=== PATIENT | female | born 1960 | race Caucasian/White ===

== ENCOUNTER 2017-01-10 20:37 | Emergency (ER) | payer MEDICAID ==
[2017-01-10 20:51] VITALS: BP 151/88
[2017-01-10] MEDS ORDERED: HYDROmorphone 1 MG/ML Syringe IVPUSH ONE ×2 (21:06→21:54)
[2017-01-10] MEDS ORDERED: Sodium Chloride 0.9% 10 ML Syringe FLUSH PRN ×2 (21:06→22:04)
[2017-01-10] MEDS ORDERED: Ondansetron 4 MG/2 ML SDV IVPUSH ONE (21:06)
[2017-01-10] MEDS ORDERED: Sodium Chloride 0.9% 1,000 ML IV ONE ×2 (21:06→23:33)
--- NOTE | 2017-01-10 21:28 | EDM.PDOC ---
ED HPI GI/ABDOMINAL - General Chief Complaint: Abdominal Pain Stated Complaint: AB PAIN Time Seen by Provider: 01/10/17 21:03 Source of Information: Reports: Patient History Limitations: Reports: No limitations - History of Present Illness INITIAL COMMENTS - FREE TEXT/NARRATIVE: Patient presents for evaluation treatment of abdominal pain, nausea and vomiting. Patient reports that the pain began an hour and half prior to arrival in the ER. She reports it is a severe pain located throughout her abdomen but is worse in the left upper quadrant. She reports that she vomited prior to arrival in the ER. She reports that she's had a bowel obstruction twice in the past. Both of these times have required surgical revision. She reports additional abdominal surgeries of her [place], cholecystectomy and ventral hernia repair. She states that she has mesh in her abdomen from the ventral hernia repair. She states that she has not been passing much gas today. Her last bowel movement was today. Denies any urinary symptoms, fevers or chills. Location: generalized Quality: Reports: stabbing - Related Data Allergies/ADRs: Allergies Allergy/AdvReac Type Severity Reaction Status Date / Time cephalexin Allergy Hives Verified 01/10/17 20:51 lisinopril Allergy Muscle Verified 01/10/17 20:51 Aches morphine Allergy Itching Verified 01/10/17 20:51 venlafaxine [From Effexor] Allergy Cannot Verified 01/10/17 20:51 Remember Home Meds: Home Meds Citalopram Hydrobromide [Celexa] 40 mg PO BEDTIME 12/16/15 [History] Hydrochlorothiazide 12.5 mg PO DAILY 12/16/15 [History] Losartan [Cozaar] 25 mg PO DAILY 12/16/15 [History] Ferrous Sulfate [Iron] 325 mg PO DAILY 06/23/16 [History] Gabapentin [Neurontin] 300 mg PO DAILY 06/23/16 [History] Potassium Chloride [Klor-Con M20] 2 tab PO DAILY 06/23/16 [History] Loratadine [Claritin] 10 mg PO DAILY PRN 07/15/16 [History] Pantoprazole [Protonix] 40 mg PO DAILY 07/15/16 [History] SUMAtriptan [Imitrex] 25 mg PO ASDIRECTED PRN 07/15/16 [History] oxyCODONE HCl [Oxycodone HCl] 5 mg PO Q6HR PRN 07/15/16 [History] Past Medical History HEENT History: Reports: Allergic rhinitis, Impaired vision, Other (see below) Other HEENT History: wears glasses, dentures Cardiovascular History: Reports: High cholesterol, Hypertension, SOB on exertion Respiratory History: Reports: PE, Sleep apnea Gastrointestinal History: Reports: Bowel obstruction, GERD, Other (see below) Other Gastrointestinal History: Perotinitis, gastric ulcer Genitourinary History: Reports: None Musculoskeletal History: Reports: Arthritis, Back pain, chronic, Neck pain, chronic, Osteoarthritis Neurological History: Reports: Migraines Psychiatric History: Reports: Anxiety, Depression Endocrine/Metabolic History: Reports: Diabetes, type II, Obesity/BMI 30+ Hematologic History: Reports: Anemia, Iron deficiency, Other (see below) Other Hematologic History: blood clotting disorder - Past Surgical History GI Surgical History: Reports: Bariatric procedure, Hernia repair/other, Small bowel, Other (see below) Other GI Surgeries/Procedures: Gastric bypass Female Surgical History: Reports: Hysterectomy, Oophorectomy Musculoskeletal Surgical History: Reports: Shoulder surgery Social & Family History - Family History Family Medical History: Noncontributory - Tobacco Use Smoking Status *Q: Current Every Day Smoker Years of Tobacco use: 25 Packs/Tins Daily: 1 Second Hand Smoke Exposure: Yes - Recreational Drug Use Recreational Drug Use: No ED ROS GENERAL - Review of Systems Review Of Systems: See Below Constitutional: Denies: fever, chills GI/Abdominal: Reports: Abdominal pain, Nausea, Vomiting, Other (decreased flatus ; bloating) : Reports: no symptoms. Denies: dysuria, hematuria ED EXAM, GI/ABD - Physical Exam Exam: See Below Exam Limited By: No limitations General Appearance: alert, WD/WN, moderate distress Respiratory/Chest: no respiratory distress, lungs clear, normal breath sounds Cardiovascular: normal peripheral pulses, regular rate, rhythm, no murmur GI/Abdominal: absent bowel sounds, tenderness, distention, guarding Neurological: alert, oriented, normal cognition Psychiatric: normal affect, normal mood Skin Exam: Warm, Dry, Normal color Course - Vital Signs Last Recorded V/S: Last Vital Signs Temp 36.8 C 01/10/17 20:48 Pulse 81 01/10/17 20:48 Resp 18 01/10/17 20:48 BP 151/88 H 01/10/17 20:48 Pulse Ox 100 01/10/17 20:48 - Orders/Labs/Meds Orders: Active Orders 24 hr Category Date Time Status Peripheral IV Care [RC] . DIRECTED Care 01/10/17 21:06 Active Abdomen 2V AP Flat Upright [CR] Stat Exams 01/10/17 21:06 Taken Abdomen Pelvis w Cont [CT] Stat Exams 01/10/17 21:38 Taken Sodium Chloride 0.9% [Saline Flush] Med 01/10/17 21:06 Active 10 ml FLUSH ASDIRECTED PRN Sodium Chloride 0.9% [Saline Flush] Med 01/10/17 22:04 Active 10 ml FLUSH ONETIME PRN Nasogastric Orogastric Tube Insertion [OM.PC] Routine Oth 01/10/17 22:36 Ordered Peripheral IV Insertion Adult [OM.PC] Routine Oth 01/10/17 21:06 Ordered Medication Orders Sodium Chloride (Saline Flush) 10 ml FLUSH ASDIRECTED PRN PRN Reason: Keep Vein Open Last Admin: 01/10/17 21:20 Dose: 10 ml Sodium Chloride (Saline Flush) 10 ml FLUSH ONETIME PRN PRN Reason: IV FLUSH Last Admin: 01/10/17 22:15 Dose: 10 ml Labs: Laboratory Tests 01/10/17 01/10/17 01/10/17 Range/Units 21:00 21:00 21:58 WBC 5.91 (3.98-10.04) K/mm3 RBC 4.02 (3.98-5.22) M/mm3 Hgb 11.1 L (11.2-15.7) gm/L Hct 34.7 (34.1-44.9) % MCV 86.3 (79.4-94.8) fl MCH 27.6 (25.6-32.2) pg MCHC 32.0 L (32.2-35.5) g/dl RDW Std Deviation 53.9 H (36.4-46.3) fL Plt Count 206 (182-369) K/mm3 MPV 10.5 (9.4-12.3) fl Neutrophils % (Manual) 43 (40-60) % Band Neutrophils % 0 (0-10) % Lymphocytes % (Manual) 44 H (20-40) % Atypical Lymphs % 1 % Monocytes % (Manual) 7 (2-10) % Eosinophils % (Manual) 4 (0.7-5.8) % Basophils % (Manual) 1 (0.1-1.2) Platelet Estimate Adequate Plt Morphology Comment Normal Hypochromasia 1+ slight Poikilocytosis 2+ moderate Anisocytosis 2+ moderate Microcytosis 1+ slight Macrocytosis 1+ slight Tear Drop Cells 1+ slight Ovalocytes 1+ slight Reynolds Cells 1+ slight Schistocytes 1+ slight RBC Morph Comment Abnormal Sodium 140 (136-145) mEq/L Potassium 3.9 (3.5-5.1) mEq/L Chloride 104 (98-107) mEq/L Carbon Dioxide 24 (21-32) mEq/L Anion Gap 15.9 H (5-15) BUN 13 (7-18) mg/dL Creatinine 0.8 (0.55-1.02) mg/dL Est Cr Clr Drug Dosing TNP Estimated GFR (MDRD) > 60 (>60) mL/min BUN/Creatinine Ratio 16.3 (14-18) Glucose 107 H (74-106) mg/dL Calcium 9.1 (8.5-10.1) mg/dL Total Bilirubin 0.2 (0.2-1.0) mg/dL AST 30 (15-37) U/L ALT 25 (14-59) U/L Alkaline Phosphatase 49 (46-116) U/L C-Reactive Protein 0.3 (<1.0) mg/dL Total Protein 7.2 (6.4-8.2) g/dl Albumin 3.8 (3.4-5.0) g/dl Globulin 3.4 gm/dL Albumin/Globulin Ratio 1.1 (1-2) Urine Color Yellow (Yellow) Urine Appearance Clear (Clear) Urine pH 7.5 (5.0-8.0) Ur Specific [place] 1.025 (1.005-1.030) Urine Protein Negative (Negative) Urine Glucose (UA) Negative (Negative) Urine Ketones Negative (Negative) Urine Occult Blood Trace-intact H (Negative) Urine Nitrite Negative (Negative) Urine Bilirubin Negative (Negative) Urine Urobilinogen 1.0 (0.2-1.0) Ur Leukocyte Esterase Negative (Negative) Urine RBC 0-5 (0-5) /hpf Urine WBC 0-5 (0-5) /hpf Ur Squamous Epith Cells 0-5 (0-5) /hpf Amorphous Sediment Moderate H (NOT SEEN) /hpf Urine Bacteria Rare (FEW) /hpf Urine Mucus Not seen (FEW) /hpf Meds: Medications Generic Name Dose Route Start Last Admin Trade Name Nick PRN Reason Stop Dose Admin Sodium Chloride 10 ml 01/10/17 21:06 01/10/17 21:20 Saline Flush FLUSH 10 ml ASDIRECTED PRN Administration Keep Vein Open Sodium Chloride 10 ml 01/10/17 22:04 01/10/17 22:15 Saline Flush FLUSH 10 ml ONETIME PRN Administration IV FLUSH Discontinued Medications Generic Name Dose Route Start Last Admin Trade Name Freq PRN Reason Stop Dose Admin Hydromorphone HCl 1 mg 01/10/17 21:06 01/10/17 21:18 Dilaudid IVPUSH 01/10/17 21:07 1 mg ONETIME ONE Administration Hydromorphone HCl 1 mg 01/10/17 21:54 01/10/17 22:05 Dilaudid IVPUSH 01/10/17 21:55 1 mg ONETIME ONE Administration Sodium Chloride 1,000 mls @ 999 mls/hr 01/10/17 21:06 01/10/17 21:19 Normal Saline IV 01/10/17 22:06 999 mls/hr ONETIME ONE Administration Iopamidol 150 ml 01/10/17 22:04 01/10/17 22:15 Isovue-300 (61%) IVPUSH 01/10/17 22:05 100 ml ONETIME ONE Administration Ondansetron HCl 4 mg 01/10/17 21:06 01/10/17 21:18 Zofran IVPUSH 01/10/17 21:07 4 mg ONETIME ONE Administration - Radiology Interpretation Free Text/Narrative:: Flat and upper rate of the abdomen shows multiple air-fluid lines. CT of the abdomen and pelvis with IV contrast impression per Vrad shows a high grade small bowel obstruction. Cause could be adhesions or less likely stricture. - Re-Assessments/Exams Free Text/Narrative Re-Assessment/Exam: 01/10/17 23:42 Labs returned. WBC 5.91, hemoglobin 11.1 platelets are 206. CRP is 0.3. sodium is 140, potassium 3.9 chloride is 104. Anion gap is 15.1. UA has trace blood. Negative for nitrates, leukocytes, ketones and glucose. I discussed the case with our surgeon on-call, Dr. Amilcar Paul. He felt given, her complicated past surgical history, that she would be better served at a higher level of care. I discussed this with the patient. She asked to be transferred to [facility] as this is where she has had previous surgeries. I educated her that we need to send her to a higher level of care, which [facility] is not. She asked that I contact [facility]. I was able to contact [facility], no[facility] telles and spoke with Dr. Dale, surgeon field artillery fire control man. He states that the surgeon she saw no longer takes call and would Not be able to take care of her. He has never seen her. He also recommended transfer to a higher level of care. I spoke with Dr. Newton, hospitalist at [facility]. He agrees to accept the patient. Consultation with Dr. Madrid, surgeon field artillery fire control man. The plan is to medically manage the patient with an NG tube, which she currently has place, and he will see her in the morning. Will transfer by ground ambulance to [facility]. Departure - Departure Time of Disposition: 23:47 Disposition: DC/Tfer to Acute Hospital 02 Condition: serious Clinical Impression: Small bowel obstruction Forms: ED Department Discharge Additional Instructions: Patient will go by ground ambulance to [facility]. She is to be a direct admission to . - My Orders Last 24 Hours: My Active Orders 01/10/17 21:06 Peripheral IV Care [RC] . DIRECTED Abdomen 2V AP Flat Upright [CR] Stat Sodium Chloride 0.9% [Saline Flush] 10 ml FLUSH ASDIRECTED PRN Peripheral IV Insertion Adult [OM.PC] Routine 01/10/17 21:38 Abdomen Pelvis w Cont [CT] Stat 01/10/17 22:04 Sodium Chloride 0.9% [Saline Flush] 10 ml FLUSH ONETIME PRN 01/10/17 22:36 Nasogastric Orogastric Tube Insertion [OM.PC] Routine - Assessment/Plan Last 24 Hours: My Active Orders 01/10/17 21:06 Peripheral IV Care [RC] . DIRECTED Abdomen 2V AP Flat Upright [CR] Stat Sodium Chloride 0.9% [Saline Flush] 10 ml FLUSH ASDIRECTED PRN Peripheral IV Insertion Adult [OM.PC] Routine 01/10/17 21:38 Abdomen Pelvis w Cont [CT] Stat 01/10/17 22:04 Sodium Chloride 0.9% [Saline Flush] 10 ml FLUSH ONETIME PRN 01/10/17 22:36 Nasogastric Orogastric Tube Insertion [OM.PC] Routine
[2017-01-10] MEDS ORDERED: Iopamidol 612 MG/ML 150 ML Bottle IVPUSH ONE (22:04)
[2017-01-10] MEDS ORDERED: HYDROmorphone 0.5 MG/0.5 ML Syringe IVPUSH ONE (23:57)
--- NOTE | 2017-01-12 07:15 | CR ---
Abdomen: Supine and upright views of the abdomen were obtained. Comparison: No previous study. Dilated air-filled loops of small bowel are identified with air-fluid levels being seen on the upright view. No free air is seen. Scoliosis noted within the spine. Surgical clips seen from prior cholecystectomy. Surgical anastomotic sutures seen around the stomach. Impression: 1. Findings compatible with distal small bowel obstruction. Diagnostic code #3
--- NOTE | 2017-01-12 08:05 | CT ---
CT abdomen and pelvis Technique: Multiple axial sections were obtained from above the dome of the diaphragm inferiorly through the pubic symphysis. Oral contrast was not utilized. IV contrast has been given. Delayed images were also obtained through the bladder. Comparison: No previous CT exam, previous abdominal x-ray of the 07/15/16. Findings: Visualized lung bases show nothing acute. Slight scarring or atelectasis noted within the right lung base. Small hiatal hernia is seen. Previous gastric surgery is noted. Mild intrahepatic biliary duct dilatation is seen with evidence of previous cholecystectomy. Intrahepatic biliary duct dilatation may relate to previous cholecystectomy. Spleen appears within normal limits. Kidneys show symmetric contrast enhancement without hydronephrosis or mass. Adrenal glands show no nodule. Pancreas appears within normal limits. Aorta shows atherosclerotic calcification which continues into the iliac vessels. No aneurysm is seen. No retroperitoneal adenopathy is noted. Small amount of free fluid is seen within the pelvis. Diffuse dilated small bowel is seen containing air and fluid. Bowel is dilated down to the ileum. Etiology for the obstruction is not appreciated on this exam. Findings may relate to nonvisualized adhesion. Delayed images show contrast within the distal ureters and within the bladder. Bone window settings were reviewed which show scattered degenerative change within the spine with mild scoliosis. Impression: 1. Findings compatible with distal small bowel obstruction. Etiology not seen and findings may relate to adhesions. 2. Intrahepatic biliary duct dilatation most likely residual from prior cholecystectomy. 3. Other incidental findings as noted above. Diagnostic code #5 Agree with preliminary report issued by [employer] (preliminary report dictated on 01/10/17, 11:43 PM Central Time)
== END 2017-01-11 00:11 ==
LOC: JD.ED 20:37
DX: K56.60 Unspecified intestinal obstruction (principal); R11.2 Nausea with vomiting, unspecified; E78.00 Pure hypercholesterolemia, unspecified; I10 Essential (primary) hypertension; K21.9 Gastro-esophageal reflux disease without esophagitis; Z87.11 Personal history of peptic ulcer disease; F32.9 Major depressive disorder, single episode, unspecified; F41.9 Anxiety disorder, unspecified; M19.90 Unspecified osteoarthritis, unspecified site; E11.9 Type 2 diabetes mellitus without complications; E66.9 Obesity, unspecified; E61.1 Iron deficiency; D64.9 Anemia, unspecified; D68.9 Coagulation defect, unspecified; Z98.84 Bariatric surgery status; F17.210 Nicotine dependence, cigarettes, uncomplicated; Z79.899 Other long term (current) drug therapy
CPT/HCPCS: 36415; 74020; 74177; 80053; 81001; 85025; 86140; 96361; 96374; 96375; 99285; J1170; J2405; J7040; J7050; Q9967; 99284

== ENCOUNTER 2017-10-19 23:53 | Emergency (ER) | payer MEDICAID ==
[2017-10-20] MEDS ORDERED: Sodium Chloride 0.9% 10 ML Syringe FLUSH PRN (00:10)
[2017-10-20 00:14] VITALS: BP 183/101
--- NOTE | 2017-10-20 00:18 | EDM.PDOC ---
ED HPI GENERAL MEDICAL PROBLEM - General Chief Complaint: Behavioral/Psych Stated Complaint: [facility] Time Seen by Provider: 10/19/17 23:59 Source of Information: Reports: Patient History Limitations: Reports: Altered Mental Status - History of Present Illness INITIAL COMMENTS - FREE TEXT/NARRATIVE: 57 y/o F brought in by EMS s/p overdose. Time unknown. Patient's found her with altered mental status and suicide note and several empty pill bottles. Patient not able to state what she took. Empty bottles include: Buproprion XL, divalproex sodium, gabapenten, mirtazepine, losartan, potassium chloride, pantoprazole, ondansetron. She also reportedly may have taken a few tablets of her 's hydrocodone. EMS unsure of when she was last known well. Unable to obtain any hx from the patient at this time due to altered mental status. 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 - Related Data Allergies Allergy/AdvReac Type Severity Reaction Status Date / Time cephalexin Allergy Hives Verified 10/20/17 00:10 lisinopril Allergy Muscle Verified 10/20/17 00:10 Aches morphine Allergy Itching Verified 10/20/17 00:10 venlafaxine [From Effexor] Allergy Cannot Verified 10/20/17 00:10 Remember Home Meds: Home Meds Citalopram Hydrobromide [Celexa] 40 mg PO BEDTIME 12/16/15 [History] Hydrochlorothiazide 12.5 mg PO DAILY 12/16/15 [History] Losartan [Cozaar] 25 mg PO DAILY 12/16/15 [History] Ferrous Sulfate [Iron] 325 mg PO DAILY 06/23/16 [History] Gabapentin [Neurontin] 300 mg PO DAILY 06/23/16 [History] Potassium Chloride [Klor-Con M20] 2 tab PO DAILY 06/23/16 [History] Loratadine [Claritin] 10 mg PO DAILY PRN 07/15/16 [History] Pantoprazole [ProTONIX] 40 mg PO DAILY 07/15/16 [History] SUMAtriptan [Imitrex] 25 mg PO ASDIRECTED PRN 07/15/16 [History] oxyCODONE HCl [Oxycodone HCl] 5 mg PO Q6HR PRN 07/15/16 [History] Past Medical History HEENT History: Reports: Allergic Rhinitis, Impaired Vision, Other (See Below) Other HEENT History: wears glasses, dentures Cardiovascular History: Reports: High Cholesterol, Hypertension, SOB on Exertion Respiratory History: Reports: PE, Sleep Apnea Gastrointestinal History: Reports: Bowel Obstruction, GERD, Other (See Below) Other Gastrointestinal History: Perotinitis, gastric ulcer Genitourinary History: Reports: None Musculoskeletal History: Reports: Arthritis, Back Pain, Chronic, Neck Pain, Chronic, Osteoarthritis Neurological History: Reports: Migraines Psychiatric History: Reports: Anxiety, Depression Endocrine/Metabolic History: Reports: Diabetes, Type II, Obesity/BMI 30+ Hematologic History: Reports: Anemia, Iron Deficiency, Other (See Below) Other Hematologic History: blood clotting disorder - Past Surgical History GI Surgical History: Reports: Bariatric Procedure, Hernia Repair/Other, Small Bowel, Other (See Below) Musculoskeletal Surgical History: Reports: Shoulder Surgery Social & Family History - Family History Family Medical History: Noncontributory - Tobacco Use Smoking Status *Q: Current Every Day Smoker Years of Tobacco use: 25 Packs/Tins Daily: 1 Second Hand Smoke Exposure: Yes - Recreational Drug Use Recreational Drug Use: No ED ROS GENERAL - Review of Systems Review Of Systems: Unable To Obtain (altered mental status) - Physical Exam Exam: See Below Exam Limited By: No Limitations General Appearance: Alert, Other (confused, slurred speech, able to answer some but not all questions) Eye Exam: Bilateral Eye: EOMI, Normal Inspection, PERRL (2-3mm) Ears: Normal External Exam Nose: Normal Inspection Throat/Mouth: Other (dry mucous membranes) Head Exam: Atraumatic, Normocephalic Neck: Normal Inspection, Supple, Non-Tender, Full Range of Motion Respiratory/Chest: No Respiratory Distress, Lungs Clear, Normal Breath Sounds, Chest Non-Tender Cardiovascular: Normal Peripheral Pulses, Regular Rate, Rhythm, No Murmur GI/Abdominal: Soft, Non-Tender, No Distention. No: Rebound Neuro Exam (Abbreviated): Alert, Other (disoriented, slurred speech, no facial droop, moves all extremities) Back Exam: Normal Inspection Extremities: Normal Inspection Skin Exam: Warm, Dry, Intact, Normal Color, No Rash Course - Vital Signs Last Recorded V/S: Last Vital Signs Temp 36.4 C 10/20/17 00:10 Pulse 89 10/20/17 00:10 Resp 20 12/19/17 00:10 BP 183/101 H 10/20/17 00:10 Pulse Ox 98 10/20/17 00:10 - Orders/Labs/Meds Orders: Active Orders 24 hr Category Date Time Status EKG 12 Lead [EKG Documentation Completion] [RC] STAT Care 10/20/17 00:10 Active Peripheral IV Care [RC] . DIRECTED Care 10/20/17 00:11 Active DRUG SCREEN, URINE [URCHEM] Stat Lab 10/20/17 01:17 Ordered Magnesium Sulfate/Water [Magnesium Sulfate 2 GM in Med 10/20/17 00:29 Active Water 50 ML] 2 gm Premix Bag 1 bag IV ONETIME Sodium Chloride 0.9% [Normal Saline] 1,000 ml Med 10/20/17 01:30 Active IV ASDIRECTED Sodium Chloride 0.9% [Saline Flush] Med 10/20/17 00:10 Active 10 ml FLUSH ASDIRECTED PRN Peripheral IV Insertion Adult [OM.PC] Routine Oth 10/20/17 00:10 Ordered Medication Orders Magnesium Sulfate 2 gm/ Premix 50 mls @ 25 mls/hr IV ONETIME ONE Stop: 10/20/17 02:28 Last Admin: 10/20/17 00:54 Dose: 25 mls/hr Sodium Chloride (Normal Saline) 1,000 mls @ 125 mls/hr IV ASDIRECTED JODI Sodium Chloride (Saline Flush) 10 ml FLUSH ASDIRECTED PRN PRN Reason: Keep Vein Open Last Admin: 10/20/17 00:55 Dose: 10 ml Labs: Laboratory Tests 10/20/17 10/20/17 10/20/17 Range/Units 00:09 00:09 00:09 WBC 6.40 (3.98-10.04) K/mm3 RBC 4.28 (3.98-5.22) M/mm3 Hgb 11.9 (11.2-15.7) gm/L Hct 38.1 (34.1-44.9) % MCV 89.0 (79.4-94.8) fl MCH 27.8 (25.6-32.2) pg MCHC 31.2 L (32.2-35.5) g/dl RDW Std Deviation 61.7 H (36.4-46.3) fL Plt Count 204 (182-369) K/mm3 MPV 10.3 (9.4-12.3) fl Neut % (Auto) 31.3 L (34.0-71.1) % Lymph % (Auto) 55.2 H (19.3-51.7) % [place] % (Auto) 9.4 (4.7-12.5) % Eos % (Auto) 3.3 (0.7-5.8) Baso % (Auto) 0.6 (0.1-1.2) % Neut # (Auto) 2.01 (1.56-6.13) K/mm3 Lymph # (Auto) 3.53 (1.18-3.74) K/mm3 [place] # (Auto) 0.60 H (0.24-0.36) K/mm3 Eos # (Auto) 0.21 (0.04-0.36) K/mm3 Baso # (Auto) 0.04 (0.01-0.08) K/mm3 Sodium 140 (136-145) mEq/L Potassium 4.0 (3.5-5.1) mEq/L Chloride 105 (98-107) mEq/L Carbon Dioxide 26 (21-32) mEq/L Anion Gap 13.0 (5-15) BUN 16 (7-18) mg/dL Creatinine 0.9 (0.55-1.02) mg/dL Est Cr Clr Drug Dosing 66.12 mL/min Estimated GFR (MDRD) > 60 (>60) mL/min BUN/Creatinine Ratio 17.8 (14-18) Glucose 64 L (74-106) mg/dL Calcium 9.2 (8.5-10.1) mg/dL Magnesium 1.9 (1.8-2.4) mg/dl Total Bilirubin 0.3 (0.2-1.0) mg/dL AST 27 (15-37) U/L ALT 25 (14-59) U/L Alkaline Phosphatase 61 (46-116) U/L Ammonia (11-32) umol/L Troponin I < 0.017 (0.00-0.056) ng/mL Total Protein 7.4 (6.4-8.2) g/dl Albumin 3.8 (3.4-5.0) g/dl Globulin 3.6 gm/dL Albumin/Globulin Ratio 1.1 (1-2) Salicylates 5.0 (2.8-20) mg/dL Acetaminophen 10 (10-30) ug/mL Valproic Acid (50.0-100.0) ug/mL Ethyl Alcohol 0.00 (0.00) gm% 10/20/17 10/20/17 Range/Units 00:09 00:49 WBC (3.98-10.04) K/mm3 RBC (3.98-5.22) M/mm3 Hgb (11.2-15.7) gm/L Hct (34.1-44.9) % MCV (79.4-94.8) fl MCH (25.6-32.2) pg MCHC (32.2-35.5) g/dl RDW Std Deviation (36.4-46.3) fL Plt Count (182-369) K/mm3 MPV (9.4-12.3) fl Neut % (Auto) (34.0-71.1) % Lymph % (Auto) (19.3-51.7) % [place] % (Auto) (4.7-12.5) % Eos % (Auto) (0.7-5.8) Baso % (Auto) (0.1-1.2) % Neut # (Auto) (1.56-6.13) K/mm3 Lymph # (Auto) (1.18-3.74) K/mm3 [place] # (Auto) (0.24-0.36) K/mm3 Eos # (Auto) (0.04-0.36) K/mm3 Baso # (Auto) (0.01-0.08) K/mm3 Sodium (136-145) mEq/L Potassium (3.5-5.1) mEq/L Chloride (98-107) mEq/L Carbon Dioxide (21-32) mEq/L Anion Gap (5-15) BUN (7-18) mg/dL Creatinine (0.55-1.02) mg/dL Est Cr Clr Drug Dosing mL/min Estimated GFR (MDRD) (>60) mL/min BUN/Creatinine Ratio (14-18) Glucose (74-106) mg/dL Calcium (8.5-10.1) mg/dL Magnesium (1.8-2.4) mg/dl Total Bilirubin (0.2-1.0) mg/dL AST (15-37) U/L ALT (14-59) U/L Alkaline Phosphatase (46-116) U/L Ammonia < 10 L (11-32) umol/L Troponin I (0.00-0.056) ng/mL Total Protein (6.4-8.2) g/dl Albumin (3.4-5.0) g/dl Globulin gm/dL Albumin/Globulin Ratio (1-2) Salicylates (2.8-20) mg/dL Acetaminophen (10-30) ug/mL Valproic Acid < 3.0 L (50.0-100.0) ug/mL Ethyl Alcohol (0.00) gm% Meds: Medications Generic Name Dose Route Start Last Admin Trade Name Freq PRN Reason Stop Dose Admin Magnesium Sulfate 2 gm/ Premix 50 mls @ 25 mls/hr 10/20/17 00:29 10/20/17 00: 54 IV 10/20/17 02:28 25 mls/hr ONETIME ONE Administration Sodium Chloride 1,000 mls @ 125 mls/hr 10/20/17 01:30 Normal Saline IV ASDIRECTED JODI Sodium Chloride 10 ml 10/20/17 00:10 10/20/17 00:55 Saline Flush FLUSH 10 ml ASDIRECTED PRN Administration Keep Vein Open - Re-Assessments/Exams Free Text/Narrative Re-Assessment/Exam: 10/20/17 00:19 Discussed with poison control. Recommend admission in monitored bed for at least 24 hrs. Supportive care. Monitor for seizures (due to buproprion) and treat with lorazepam as needed. Monitor for hypotension. Narcan PRN respiratory depression due to hydrocodone OD. Check LFT's and monitor due to divalproex ingestion. Check divalproex level, no additional drug levels are helpful. Given no ICU beds available here, anticipate likely transfer once medically stabilized. Police arrive and show me copy of patient's suicide note. 10/20/17 01:10 EKG showed NSR, qtc 508, otherwise unremarkable. 2gm Magnesium ordered for mildly wide qrs. Vitals continue to be stable. labs show APAP 10, ETOH 0, remaining labs including CBC/chemistry are unremarkable. TIANNA richter in [place] called at 01:10 to request transfer. 10/20/17 01:[address] Owens, ED physician at [facility] who accepts the patient for transfer. 10/20/17 01:28 Discussed with her . He thinks she may have taken the OD around 10pm but isn't certain. He was already asleep. Departure - Departure Time of Disposition: 01:27 Disposition: DC/Tfer to [facility] Access [facility] Clinical Impression: Altered mental status Qualifiers: Altered mental status type: disorientation Qualified Code(s): R41.0 - Disorientation, unspecified Polysubstance overdose Qualifiers: Encounter type: initial encounter Injury intent: intentional self-harm Qualified Code(s): T50.902A - Poisoning by unspecified drugs, medicaments and biological substances, intentional self-harm, initial encounter - Discharge Information Referrals: PCP,None [Primary Care Provider] - Forms: ED Department Discharge - My Orders Last 24 Hours: My Active Orders 10/20/17 00:10 EKG 12 Lead [EKG Documentation Completion] [RC] STAT Sodium Chloride 0.9% [Saline Flush] 10 ml FLUSH ASDIRECTED PRN Peripheral IV Insertion Adult [OM.PC] Routine 10/20/17 00:11 Peripheral IV Care [RC] . DIRECTED 10/20/17 00:29 Magnesium Sulfate/Water [Magnesium Sulfate 2 GM in Water 50 ML] 2 gm Premix Bag 1 bag IV ONETIME 10/20/17 01:17 DRUG SCREEN, URINE [URCHEM] Stat 10/20/17 01:30 Sodium Chloride 0.9% [Normal Saline] 1,000 ml IV ASDIRECTED - Assessment/Plan Last 24 Hours: My Active Orders 10/20/17 00:10 EKG 12 Lead [EKG Documentation Completion] [RC] STAT Sodium Chloride 0.9% [Saline Flush] 10 ml FLUSH ASDIRECTED PRN Peripheral IV Insertion Adult [OM.PC] Routine 10/20/17 00:11 Peripheral IV Care [RC] . DIRECTED 10/20/17 00:29 Magnesium Sulfate/Water [Magnesium Sulfate 2 GM in Water 50 ML] 2 gm Premix Bag 1 bag IV ONETIME 10/20/17 01:17 DRUG SCREEN, URINE [URCHEM] Stat 10/20/17 01:30 Sodium Chloride 0.9% [Normal Saline] 1,000 ml IV ASDIRECTED
[2017-10-20] MEDS ORDERED: Magnesium Sulfate/Water 2 GM in Premix Bag 1 BAG IV ONE (00:29)
[2017-10-20 00:45] LABS: ACETAMINOPHEN 10 ug/mL (10-30)
[2017-10-20] MEDS ORDERED: Sodium Chloride 0.9% 1,000 ML IV SCH (01:30)
== END 2017-10-20 01:45 | disposition critical access hospital (66) ==
LOC: JD.ED 23:53
DX: T50.902A Poisoning by unspecified drugs, medicaments and biological substances, intentional self-harm, initial encounter (principal); I10 Essential (primary) hypertension; E11.9 Type 2 diabetes mellitus without complications; F17.210 Nicotine dependence, cigarettes, uncomplicated; E78.00 Pure hypercholesterolemia, unspecified; Z88.1 Allergy status to other antibiotic agents; Z88.5 Allergy status to narcotic agent; Z88.8 Allergy status to other drugs, medicaments and biological substances; Z79.899 Other long term (current) drug therapy
CPT/HCPCS: 36415; 80053; 80164; 80306; 82140; 83735; 84484; 85025; 93005; 96365; 96366; 99285; G0480; J7050; P9612; 93010; 99284-25; J3475

== ENCOUNTER 2017-11-24 22:14 | Emergency (ER) | payer OTHER ==
[2017-11-24 22:25] VITALS: BP 168/92
[2017-11-24] MEDS ORDERED: HYDROmorphone 1 MG/ML Syringe IVPUSH ONE (22:40)
[2017-11-24] MEDS ORDERED: Ondansetron 4 MG/2 ML SDV IVPUSH ONE (22:40)
[2017-11-24] MEDS ORDERED: Sodium Chloride 0.9% 1,000 ML IV SCH (22:45)
--- NOTE | 2017-11-24 23:32 | EDM.PDOC ---
ED HPI GENERAL MEDICAL PROBLEM - General Chief Complaint: Abdominal Pain Stated Complaint: ABDOMINAL PAIN Time Seen by Provider: 11/24/17 22:25 Source of Information: Reports: Patient History Limitations: Reports: No Limitations - History of Present Illness INITIAL COMMENTS - FREE TEXT/NARRATIVE: The patient states that the patient developed upper abdominal pain and right back pain this afternoon. Initially it was a bloating sensation, however has gotten worse. She developed nausea and emesis around 21:50 this evening. She states that she has been constipated since yesterday, and has not had flatness since this afternoon. She denies having any urinary symptoms. No recent fever. The patient states she has had similar symptoms 4 times in the past, all due to a small bowel obstruction, and all requiring surgery for lysis of adhesions. The patient's PCP is Dr. Werner. Abdominal Pain Score (Numeric/FACES): 9 - Related Data Allergies Allergy/AdvReac Type Severity Reaction Status Date / Time cephalexin Allergy Hives Verified 11/24/17 22:22 lisinopril Allergy Muscle Verified 11/24/17 22:22 Aches morphine Allergy Itching Verified 11/24/17 22:22 venlafaxine [From Effexor] Allergy Cannot Verified 11/24/17 22:22 Remember Home Meds: Home Meds Losartan [Cozaar] 25 mg PO DAILY 12/16/15 [History] Ferrous Sulfate [Iron] 325 mg PO DAILY 06/23/16 [History] Gabapentin [Neurontin] 300 mg PO TID 06/23/16 [History] Potassium Chloride [Klor-Con M20] 1 tab PO DAILY 06/23/16 [History] Pantoprazole [ProTONIX] 40 mg PO DAILY 07/15/16 [History] SUMAtriptan [Imitrex] 25 mg PO ASDIRECTED PRN 07/15/16 [History] Wellbutrin. 1 tab PO DAILY 11/24/17 [History] Past Medical History HEENT History: Reports: Allergic Rhinitis, Impaired Vision Other HEENT History: wears glasses, dentures Cardiovascular History: Reports: Hypertension Respiratory History: Reports: PE Gastrointestinal History: Reports: Bowel Obstruction, GERD, PUD Musculoskeletal History: Reports: Back Pain, Chronic, Neck Pain, Chronic, Osteoarthritis Neurological History: Reports: Migraines Psychiatric History: Reports: Anxiety, Depression Endocrine/Metabolic History: Reports: Diabetes, Type II (resolved after gastric bypass) Hematologic History: Reports: Anemia, Iron Deficiency, Other (See Below) ( Hypercoagulable condition) Other Hematologic History: 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 - Past Surgical History GI Surgical History: Reports: Bariatric Procedure (Gastric bypass August 2008) , Cholecystectomy, Hernia, Abdominal, Small Bowel (Exploratory laparotomy with lysis of adhesions x 4) Female Surgical History: Reports: Hysterectomy, Salpingo-Oophorectomy, Tubal Ligation Musculoskeletal Surgical History: Reports: Shoulder Surgery (left, x 2 - one arthroscopic, one open) Social & Family History - Family History Family Medical History: Noncontributory - Tobacco Use Smoking Status *Q: Current Every Day Smoker Years of Tobacco use: 40 Packs/Tins Daily: 1 Packs/Tins Daily Comment: Down from 2.5 ppd - Alcohol Use Alcohol Use History: Yes Alcohol Use Frequency: Socially - Recreational Drug Use Recreational Drug Use: Yes Drug Use in Last 12 Months: No Recreational Drug Type: Reports: Marijuana/Hashish (last as a teenager) - Living Situation & Occupation Living situation: Reports: , with Spouse, with Family (Daughter, 2 grandkids) 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 ED EXAM, GI/ABD - Physical Exam Exam: See Below Exam Limited By: No Limitations General Appearance: Alert, WD/WN, Mild Distress (Appears uncomfortable) Eyes: Bilateral: Normal Appearance, EOMI Ears: Normal External Exam, Hearing Grossly Normal Nose: Normal Inspection, No Blood Throat/Mouth: Normal Inspection, Normal Lips, Normal Voice, No Airway Compromise Head: Atraumatic, Normocephalic Neck: Normal Inspection, Full Range of Motion Respiratory/Chest: No Respiratory Distress, Lungs Clear, Normal Breath Sounds, No Accessory Muscle Use Cardiovascular: Normal Peripheral Pulses, Regular Rate, Rhythm, No Gallop, No JVD, No Murmur, No Rub GI/Abdominal Exam: Normal Bowel Sounds (No tinkles or rushes), Soft, No Organomegaly, No Distention, No Abnormal Bruit, No Mass, Pelvis Stable, Tender ( Generalized, non-focal) (Female) Exam: Deferred Rectal (Female) Exam: Deferred Extremities: Normal Inspection, Normal Range of Motion, No Pedal Edema, Normal Capillary Refill Neurological: Alert, Oriented, Normal Cognition, No Motor/Sensory Deficits Psychiatric: Normal Affect Skin Exam: Warm, Dry, Intact, Normal Color, No Rash Course - Vital Signs Last Recorded V/S: Last Vital Signs Temp 36.6 C 11/24/17 22:22 Pulse 70 11/24/17 22:22 Resp 20 11/24/17 22:22 BP 168/92 H 11/24/17 22:22 Pulse Ox 97 11/24/17 22:22 - Orders/Labs/Meds Orders: Active Orders 24 hr Category Date Time Status Abdomen 1V Upright [CR] Stat Exams 11/24/17 22:42 Ordered Abdomen Pelvis w Cont [CT] Stat Exams 11/24/17 23:32 Taken Sodium Chloride 0.9% [Normal Saline] 1,000 ml Med 11/24/17 22:45 Active IV ASDIRECTED Medication Orders Sodium Chloride (Normal Saline) 1,000 mls @ 150 mls/hr IV ASDIRECTED JODI Last Admin: 11/24/17 23:07 Dose: 150 mls/hr Labs: Laboratory Tests 11/24/17 11/24/17 11/24/17 Range/Units 22:53 22:53 23:00 WBC 6.55 (3.98-10.04) K/mm3 RBC 4.12 (3.98-5.22) M/mm3 Hgb 11.7 (11.2-15.7) gm/L Hct 37.4 (34.1-44.9) % MCV 90.8 (79.4-94.8) fl MCH 28.4 (25.6-32.2) pg MCHC 31.3 L (32.2-35.5) g/dl RDW Std Deviation 60.2 H (36.4-46.3) fL Plt Count 261 (182-369) K/mm3 MPV 10.3 (9.4-12.3) fl Neutrophils % (Manual) 85 H (40-60) % Band Neutrophils % 0 (0-10) % Lymphocytes % (Manual) 9 L (20-40) % Atypical Lymphs % 3 % Monocytes % (Manual) 2 (2-10) % Eosinophils % (Manual) 0 L (0.7-5.8) % Basophils % (Manual) 1 (0.1-1.2) Platelet Estimate Adequate Plt Morphology Comment Normal Hypochromasia 1+ slight Poikilocytosis 2+ moderate Anisocytosis 2+ moderate Microcytosis 1+ slight Macrocytosis 1+ slight Target Cells 1+ slight RBC Morph Comment Abnormal Sodium 139 (136-145) mEq/L Potassium 3.7 (3.5-5.1) mEq/L Chloride 103 (98-107) mEq/L Carbon Dioxide 26 (21-32) mEq/L Anion Gap 13.7 (5-15) BUN 12 (7-18) mg/dL Creatinine 0.9 (0.55-1.02) mg/dL Est Cr Clr Drug Dosing 68.68 mL/min Estimated GFR (MDRD) > 60 (>60) mL/min BUN/Creatinine Ratio 13.3 L (14-18) Glucose 95 (74-106) mg/dL Calcium 8.9 (8.5-10.1) mg/dL Total Bilirubin 0.3 (0.2-1.0) mg/dL AST 30 (15-37) U/L ALT 24 (14-59) U/L Alkaline Phosphatase 60 (46-116) U/L Total Protein 6.9 (6.4-8.2) g/dl Albumin 3.4 (3.4-5.0) g/dl Globulin 3.5 gm/dL Albumin/Globulin Ratio 1.0 (1-2) Lipase 2465 H (73-393) U/L Urine Color Yellow (Yellow) Urine Appearance Clear (Clear) Urine pH 6.5 (5.0-8.0) Ur Specific [place] 1.025 (1.005-1.030) Urine Protein Negative (Negative) Urine Glucose (UA) Negative (Negative) Urine Ketones Negative (Negative) Urine Occult Blood Negative (Negative) Urine Nitrite Negative (Negative) Urine Bilirubin Negative (Negative) Urine Urobilinogen 1.0 (0.2-1.0) Ur Leukocyte Esterase Negative (Negative) Urine RBC 0-5 (0-5) /hpf Urine WBC 0-5 (0-5) /hpf Ur Epithelial Cells 0-5 (0-5) /hpf Urine Bacteria Rare (FEW) /hpf Urine Mucus Many H (FEW) /hpf Meds: Medications Generic Name Dose Route Start Last Admin Trade Name Freq PRN Reason Stop Dose Admin Sodium Chloride 1,000 mls @ 150 mls/hr 11/24/17 22:45 11/24/17 23:07 Normal Saline IV 150 mls/hr ASDIRECTED JODI Administration Discontinued Medications Generic Name Dose Route Start Last Admin Trade Name Nick PRN Reason Stop Dose Admin Hydromorphone HCl 1 mg 11/24/17 22:40 11/24/17 23:12 Dilaudid IVPUSH 11/24/17 22:41 1 mg ONETIME ONE Administration Hydromorphone HCl 1 mg 11/25/17 00:09 11/25/17 00:26 Dilaudid IVPUSH 11/25/17 00:10 1 mg ONETIME ONE Administration Hydromorphone HCl Confirm 11/25/17 02:28 Dilaudid Administered 11/25/17 02:29 Dose 1 mg .ROUTE .STK-MED ONE Ketorolac Tromethamine Confirm 11/25/17 03:02 Toradol Administered 11/25/17 03:03 Dose 30 mg .ROUTE .STK-MED ONE Ondansetron HCl 4 mg 11/24/17 22:40 11/24/17 23:09 Zofran IVPUSH 11/24/17 22:41 4 mg ONETIME ONE Administration Ondansetron HCl 4 mg 11/25/17 00:09 11/25/17 00:24 Zofran IVPUSH 11/25/17 00:10 4 mg ONETIME ONE Administration - Re-Assessments/Exams Free Text/Narrative Re-Assessment/Exam: 11/24/17 23:31 Upright abdominal radiograph appears to demonstrate numerous air-fluid levels in a stepwise pattern, consistent with a small bowel obstruction. Numerous right upper quadrant surgical clips incidentally noted. Scoliosis noted. Formal read per the Radiologist pending. I will order a CT scan of the abdomen and pelvis with oral and IV contrast. 11/25/17 00:58 Notified that [employer] will be down from 01:00 until 04:00. I will attempt to dictate events once [employer] is back up. 11/25/17 05:08 [employer] was done until 05:00. The patient's lipase returned elevated [place] 2465. CT of the abdomen and pelvis with oral and IV contrast returned from by [facility] at 02:10 as "Findings consistent with small bowel obstruction as described above. Nonacute findings as outlined above. Specifically, they mention "No CT evident evidence for acute pancreatitis." Case discussed with Dr. Garrido at 02:14. She would like me to contact Dr. Landry before accepting the patient. Case then discussed with Dr. Landry at 02:16. As the patient has a history of gastric bypass, he feels that these cases can be very collocated, and therefore recommends transfer to a facility that performs a gastric bypasses. Case then discussed with Dr. Madrid, Bariatric Surgeon at [facility], at 02:34. He agreed with the transfer, but recommended admission to the Hospitalist. Case then discussed with Dr. Carlson, Hospitalist at [facility], at 02: 42. He accepted the patient for transfer. A NG tube was placed to low intermittent suction prior to the patient being transferred. The patient requested IV Toradol be given prior to the placement of the NG tube, as she stated that in the past NG tube placement triggered a migraine. Initially we were going to transfer the patient by ground, as there was dense fog in [place] and the helicopter was unable to fly, and no fixed wings were available, however, at the last moment, a fixed wing became available, and the patient was transferred by fixed wing. Departure - Departure Time of Disposition: 02:45 Disposition: DC/Tfer to Acute Hospital 02 Condition: Fair Clinical Impression: SBO (small bowel obstruction), Elevated lipase - Discharge Information - My Orders Last 24 Hours: My Active Orders 11/24/17 22:42 Abdomen 1V Upright [CR] Stat 11/24/17 22:45 Sodium Chloride 0.9% [Normal Saline] 1,000 ml IV ASDIRECTED 11/24/17 23:32 Abdomen Pelvis w Cont [CT] Stat - Assessment/Plan Last 24 Hours: My Active Orders 11/24/17 22:42 Abdomen 1V Upright [CR] Stat 11/24/17 22:45 Sodium Chloride 0.9% [Normal Saline] 1,000 ml IV ASDIRECTED 11/24/17 23:32 Abdomen Pelvis w Cont [CT] Stat
[2017-11-25] MEDS ORDERED: Ondansetron 4 MG/2 ML SDV IVPUSH ONE (00:09)
[2017-11-25] MEDS ORDERED: HYDROmorphone 1 MG/ML Syringe IVPUSH ONE (00:09)
[2017-11-25] MEDS ORDERED: HYDROmorphone 1 MG/ML Syringe ONE (02:28)
[2017-11-25] MEDS ORDERED: Ketorolac 30 MG/ML SDV ONE (03:02)
--- NOTE | 2017-11-25 09:30 | CT ---
CT abdomen and pelvis Technique: Multiple axial sections were obtained from above the dome of the diaphragm inferiorly through the pubic symphysis. Intravenous contrast was utilized. Small amount of oral contrast is noted within the stomach. Delayed images were also obtained through the bladder. Comparison: Prior abdominal x-ray performed earlier on the same day as well as prior CT abdomen and pelvis exam of 01/10/17. Findings: Previous bypass surgery is noted. There is a dilated portion of the stomach being seen which contains a fluid level. This is felt to be within the bypassed portion of the stomach raising the possibility of an anastomotic leak. Dilated small bowel loops are seen with nondilated ileal loops. Findings compatible with a distal jejunal obstruction. Etiology of the obstruction is not seen on current exam. Visualized lung bases show nothing acute. Minimal intrahepatic biliary duct dilatation is seen which is felt to be residual from prior cholecystectomy. Liver shows no focal abnormality. Spleen appears within normal limits. Moderately large hiatal hernia is noted. Adrenal glands show no nodule. Kidneys show symmetric contrast enhancement without hydronephrosis or mass. Pancreas is within normal limits. Aorta shows no aneurysmal dilatation. No retroperitoneal adenopathy is seen. No discrete mesenteric abnormalities are seen. Anastomotic sutures are seen within the left upper abdomen. Abdominal wall graft material is seen anteriorly. No pelvic abnormality is seen. Delayed images show contrast within the distal ureters and within the bladder. Bone window settings show mild scoliosis within the spine with mild diffuse degenerative change seen within the spine. Impression: 1. Small bowel obstruction occurring near the distal jejunal level. Etiology not seen. 2. Dilated air-filled and fluid-filled stomach involving the isolated portion from previous gastric surgery. This raises the possibility of anastomotic leak. 3. Other incidental findings. Diagnostic code #5 Agree with preliminary report issued by [facility] ([facility] preliminary report dictated on 11/25/17, 3:08 AM Central Time)
--- NOTE | 2017-11-25 09:30 | CR ---
Abdomen: Upright view of the abdomen was obtained. Comparison: Prior abdominal x-ray of 01/10/17. Dilated loops of small bowel are seen with differential air-fluid levels. Findings are felt compatible with small bowel obstruction. Surgical material is seen within the abdomen. No free air is seen. Scoliosis is present within the spine with mild degenerative change. Impression: 1. Findings compatible with small bowel obstruction. 2. Other incidental findings. Diagnostic code #3
== END 2017-11-25 04:45 ==
LOC: JD.ED 22:14
DX: K56.609 Unspecified intestinal obstruction, unspecified as to partial versus complete obstruction (principal); R79.9 Abnormal finding of blood chemistry, unspecified; I10 Essential (primary) hypertension; K21.9 Gastro-esophageal reflux disease without esophagitis; F17.210 Nicotine dependence, cigarettes, uncomplicated; E11.9 Type 2 diabetes mellitus without complications; Z88.8 Allergy status to other drugs, medicaments and biological substances; Z88.5 Allergy status to narcotic agent; Z79.899 Other long term (current) drug therapy
CPT/HCPCS: 36415; 74018; 74177; 80053; 81001; 83690; 85025; 96361; 96374; 96375; 96376; 99285; J1170; J1885; J2405; J7040

== ENCOUNTER 2018-07-31 14:08 | Emergency (ER) | payer MEDICAID, OTHER ==
[2018-07-31 14:30] VITALS: BP 87/55
[2018-07-31] MEDS ORDERED: Sodium Chloride 0.9% 10 ML Syringe FLUSH PRN (15:17)
--- NOTE | 2018-07-31 15:35 | EDM.PDOC ---
<Hermelinda Gomez - Last Filed: 07/31/18 17:32> ED HPI GENERAL MEDICAL PROBLEM - General Chief Complaint: Back Pain or Injury Stated Complaint: NECK,BACK AND LEG PAIN Time Seen by Provider: 07/31/18 14:17 Source of Information: Reports: Patient History Limitations: Reports: No Limitations - History of Present Illness INITIAL COMMENTS - FREE TEXT/NARRATIVE: Pinky is a 58-year-old woman with history of chronic back pain and recent fall one month ago who presents for pain control. She states her pain is just exhausting and she hasn't been able to function for the last month. According to pt and , Pinky was able to function normally until about a month ago , when she fell. She states she has not gone to her PCP for this problem because he won't prescribe pain medication. Her PCP did refer her to a pain clinic, but pt did not like how she was treated. Pinky complains of chronic low back pain and left-sided migraine, which is periorbital, left frontal, and left temporal. She reports light sensitivity. No nausea or vomiting. She states she tried Motrin at home, but did not try Benadryl because she has "no money left." She is requesting IV Toradol and Benadryl today. She also reports cough with a history of smoking. Pinky has a history of morbid obesity >400lbs, s/p gastric bypass surgery. She does report some problems with nutritional deficiency. She denies chest pain, light-headedness, confusion, palpitations, abdominal pain, nausea/vomiting, visual changes, and neurologic problems other than migraine headache. Onset: Other (chronic problem) Back Pain Score (Numeric/FACES): 10 - Related Data Allergies Allergy/AdvReac Type Severity Reaction Status Date / Time cephalexin Allergy Hives Verified 07/31/18 14:20 morphine Allergy Itching Verified 07/31/18 14:20 venlafaxine [From Effexor] Allergy Cannot Verified 07/31/18 14:20 Remember lisinopril AdvReac Muscle Verified 07/31/18 14:20 Aches Home Meds: Home Meds Losartan [Cozaar] 25 mg PO DAILY 12/16/15 [History] Ferrous Sulfate [Iron] 325 mg PO DAILY 06/23/16 [History] Gabapentin [Neurontin] 300 mg PO TID 06/23/16 [History] Potassium Chloride [Klor-Con M20] 1 tab PO DAILY 06/23/16 [History] Pantoprazole [ProTONIX] 40 mg PO DAILY 07/15/16 [History] SUMAtriptan [Imitrex] 25 mg PO ASDIRECTED PRN 07/15/16 [History] Wellbutrin. 1 tab PO DAILY 11/24/17 [History] Past Medical History HEENT History: Reports: Allergic Rhinitis, Impaired Vision Other HEENT History: wears glasses, dentures Cardiovascular History: Reports: Hypertension Respiratory History: Reports: PE Gastrointestinal History: Reports: Bowel Obstruction, GERD, PUD Other Gastrointestinal History: Perotinitis, gastric ulcer Genitourinary History: Reports: None Musculoskeletal History: Reports: Back Pain, Chronic, Neck Pain, Chronic, Osteoarthritis Neurological History: Reports: Migraines Psychiatric History: Reports: Anxiety, Depression Endocrine/Metabolic History: Reports: Diabetes, Type II (resolved after gastric bypass) Hematologic History: Reports: Anemia, Iron Deficiency, Other (See Below) ( Hypercoagulable condition) Other Hematologic History: 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 ED EXAM,LOWER BACK PAIN/INJURY - Physical Exam General Appearance: No Apparent Distress, Lethargic (pt is sleeping and lethargic, but arousable. She dozes off several times during history and exam. Mild speech retardation.), Thin. No: Anxious Eye Exam: Bilateral Eye: EOMI, Normal Inspection, PERRL (no miosis noted) Head: Atraumatic. No: Facial Swelling, Facial Tenderness, Sinus Tenderness Neck: Normal Inspection, Non-Tender Respiratory/Chest: No Respiratory Distress, Lungs Clear, Normal Breath Sounds Cardiovascular: Normal Peripheral Pulses, No Murmur, Bradycardia (Rhythm is regular and bradycardic in 50s. ) GI/Abdominal: Soft, Non-Tender Back Exam: Paraspinal Tenderness (diffuse tenderness, low back. ) Extremities: Normal Inspection, Normal Capillary Refill Neurological: Alert (sleeping but arousable ), CN II-XII Intact, No Motor/ Sensory Deficits (movements are slow, but with normal strength. Neurologically intact on exam. Does appear to be sedated. ), Oriented x 3. No: Normal Mood/ Affect (flat affect, apathetic) Psychiatric: Flat Affect Course - Vital Signs Last Recorded V/S: Last Vital Signs Temp 36.8 C 07/31/18 14:20 Pulse 54 L 07/31/18 14:20 Resp 10 L 07/31/18 14:20 BP 87/55 L 07/31/18 14:20 Pulse Ox 99 07/31/18 14:20 - Orders/Labs/Meds Orders: Active Orders 24 hr Category Date Time Status EKG 12 Lead [EKG Documentation Completion] [RC] STAT Care 07/31/18 15:16 Active Peripheral IV Care [RC] . DIRECTED Care 07/31/18 15:16 Inactive Peripheral IV Care [RC] . DIRECTED Care 07/31/18 15:17 Inactive Chest 2V [CR] Stat Exams 07/31/18 16:23 Taken Chest Abdomen Pelvis w Cont [CT] Stat Exams 07/31/18 17:06 Taken Labs: Laboratory Tests 07/31/18 07/31/18 07/31/18 Range/Units 15:20 15:45 15:45 WBC 4.11 (3.98-10.04) K/mm3 RBC 3.18 L (3.98-5.22) M/mm3 Hgb 10.0 L (11.2-15.7) gm/L Hct 30.6 L (34.1-44.9) % MCV 96.2 H (79.4-94.8) fl MCH 31.4 (25.6-32.2) pg MCHC 32.7 (32.2-35.5) g/dl RDW Std Deviation 45.9 (36.4-46.3) fL Plt Count 150 L (182-369) K/mm3 MPV 9.6 (9.4-12.3) fl Neut % (Auto) 37.2 (34.0-71.1) % Lymph % (Auto) 43.8 (19.3-51.7) % [place] % (Auto) 11.9 (4.7-12.5) % Eos % (Auto) 6.6 H (0.7-5.8) Baso % (Auto) 0.5 (0.1-1.2) % Neut # (Auto) 1.53 L (1.56-6.13) K/mm3 Lymph # (Auto) 1.80 (1.18-3.74) K/mm3 [place] # (Auto) 0.49 H (0.24-0.36) K/mm3 Eos # (Auto) 0.27 (0.04-0.36) K/mm3 Baso # (Auto) 0.02 (0.01-0.08) K/mm3 Sodium 130 L (136-145) mEq/L Potassium 3.8 (3.5-5.1) mEq/L Chloride 98 (98-107) mEq/L Carbon Dioxide 31 (21-32) mEq/L Anion Gap 4.8 L (5-15) BUN 13 (7-18) mg/dL Creatinine 1.0 (0.55-1.02) mg/dL Est Cr Clr Drug Dosing 61.09 mL/min Estimated GFR (MDRD) 57 (>60) mL/min BUN/Creatinine Ratio 13.0 L (14-18) Glucose 93 (74-106) mg/dL Serum Osmolality (280-300) mosm/kg Calcium 8.4 L (8.5-10.1) mg/dL Magnesium 1.7 L (1.8-2.4) mg/dl Total Bilirubin 0.2 (0.2-1.0) mg/dL AST 26 (15-37) U/L ALT 21 (14-59) U/L Alkaline Phosphatase 51 (46-116) U/L C-Reactive Protein (<1.0) mg/dL Total Protein 5.9 L (6.4-8.2) g/dl Albumin 2.7 L (3.4-5.0) g/dl Globulin 3.2 gm/dL Albumin/Globulin Ratio 0.8 L (1-2) Free T4 (0.76-1.46) ng/dL TSH 3rd Generation 4.415 H (0.358-3.74) uIU/mL Urine Opiates Screen Presumptive positive H (NEGATIVE) Ur Buprenorphine Scrn Negative (NEGATIVE) Ur Oxycodone Screen Presumptive positive H (NEGATIVE) Urine Methadone Screen Negative (NEGATIVE) Ur Propoxyphene Screen Negative (NEGATIVE) Ur Barbiturates Screen Negative (NEGATIVE) Ur Tricyclics Screen Negative (NEGATIVE) Ur Phencyclidine Scrn Negative (NEGATIVE) Ur Amphetamine Screen Negative (NEGATIVE) U Methamphetamines Scrn Negative (NEGATIVE) U Benzodiazepines Scrn Presumptive positive H (NEGATIVE) U Cocaine Metab Screen Negative (NEGATIVE) U Marijuana (THC) Screen Negative (NEGATIVE) Ethyl Alcohol 0.00 (0.00) gm% 07/31/18 07/31/18 Range/Units 15:45 15:45 WBC (3.98-10.04) K/mm3 RBC (3.98-5.22) M/mm3 Hgb (11.2-15.7) gm/L Hct (34.1-44.9) % MCV (79.4-94.8) fl MCH (25.6-32.2) pg MCHC (32.2-35.5) g/dl RDW Std Deviation (36.4-46.3) fL Plt Count (182-369) K/mm3 MPV (9.4-12.3) fl Neut % (Auto) (34.0-71.1) % Lymph % (Auto) (19.3-51.7) % [place] % (Auto) (4.7-12.5) % Eos % (Auto) (0.7-5.8) Baso % (Auto) (0.1-1.2) % Neut # (Auto) (1.56-6.13) K/mm3 Lymph # (Auto) (1.18-3.74) K/mm3 [place] # (Auto) (0.24-0.36) K/mm3 Eos # (Auto) (0.04-0.36) K/mm3 Baso # (Auto) (0.01-0.08) K/mm3 Sodium (136-145) mEq/L Potassium (3.5-5.1) mEq/L Chloride (98-107) mEq/L Carbon Dioxide (21-32) mEq/L Anion Gap (5-15) BUN (7-18) mg/dL Creatinine (0.55-1.02) mg/dL Est Cr Clr Drug Dosing mL/min Estimated GFR (MDRD) (>60) mL/min BUN/Creatinine Ratio (14-18) Glucose (74-106) mg/dL Serum Osmolality 274 L (280-300) mosm/kg Calcium (8.5-10.1) mg/dL Magnesium (1.8-2.4) mg/dl Total Bilirubin (0.2-1.0) mg/dL AST (15-37) U/L ALT (14-59) U/L Alkaline Phosphatase (46-116) U/L C-Reactive Protein 0.2 (<1.0) mg/dL Total Protein (6.4-8.2) g/dl Albumin (3.4-5.0) g/dl Globulin gm/dL Albumin/Globulin Ratio (1-2) Free T4 0.71 L (0.76-1.46) ng/dL TSH 3rd Generation (0.358-3.74) uIU/mL Urine Opiates Screen (NEGATIVE) Ur Buprenorphine Scrn (NEGATIVE) Ur Oxycodone Screen (NEGATIVE) Urine Methadone Screen (NEGATIVE) Ur Propoxyphene Screen (NEGATIVE) Ur Barbiturates Screen (NEGATIVE) Ur Tricyclics Screen (NEGATIVE) Ur Phencyclidine Scrn (NEGATIVE) Ur Amphetamine Screen (NEGATIVE) U Methamphetamines Scrn (NEGATIVE) U Benzodiazepines Scrn (NEGATIVE) U Cocaine Metab Screen (NEGATIVE) U Marijuana (THC) Screen (NEGATIVE) Ethyl Alcohol (0.00) gm% Meds: Medications Discontinued Medications Generic Name Dose Route Start Last Admin Trade Name Freq PRN Reason Stop Dose Admin Diatrizoate Meglum/Diatrizoate Sod 90 ml 07/31/18 18:35 07/31/18 19:25 Gastrografin 37% PO 07/31/18 18:36 90 ml ONETIME ONE Administration Diphenhydramine HCl 25 mg 07/31/18 18:35 07/31/18 19:20 Benadryl IVPUSH 07/31/18 18:36 25 mg ONETIME ONE Administration Sodium Chloride 1,000 mls @ 1,000 mls/hr 07/31/18 18:36 07/31/18 19:15 Normal Saline IV 07/31/18 19:35 1,000 mls/hr ONETIME ONE Administration Iopamidol 120 ml 07/31/18 18:35 07/31/18 19:26 Isovue-300 (61%) IVPUSH 07/31/18 18:36 120 ml ONETIME ONE Administration Ketorolac Tromethamine 30 mg 07/31/18 18:35 07/31/18 19:16 Toradol IVPUSH 07/31/18 18:36 30 mg ONETIME ONE Administration Prochlorperazine Edisylate 10 mg 07/31/18 18:36 07/31/18 19:27 Compazine IVPUSH 07/31/18 18:37 10 mg ONETIME ONE Administration Sodium Chloride 10 ml 07/31/18 15:17 07/31/18 17:43 Saline Flush FLUSH 10 ml ASDIRECTED PRN Administration Keep Vein Open Departure - Departure Disposition: Home, Self-Care 01 Clinical Impression: Chronic pain syndrome, Constipation by delayed colonic transit, Hyponatremia, Subclinical hypothyroidism Abdominal pain Qualifiers: Abdominal location: generalized Qualified Code(s): R10.84 - Generalized abdominal pain Anemia Qualifiers: Anemia type: unspecified type Qualified Code(s): D64.9 - Anemia, unspecified - Discharge Information Instructions: Hyponatremia, Constipation, Adult, [id number], Abdominal Pain, Adult, [id number] Referrals: Clifford Werner MD [Primary Care Provider] - Forms: ED Department Discharge Additional Instructions: Evaluation in the emergency room today in regards to essentially chronic pain syndrome. Generally not feeling well with diffuse abdominal pain and weakness. Laboratory workup revealed mild anemia with a hemoglobin of 10.0. Normal should be 15 or so. This requires follow-up with Dr Werner in the clinic with likely need for a colonoscopy. There is some suggestion of mild vitamin B12 and perhaps folic acid deficiency. Suggest picking up a multivitamin such as Centrum daily to restore vitamin B-12 levels primarily. Labs also identified to cause subclinical hypothyroidism which means you are showing signs of early thyroid failure. At this time it is only very mildly altered but should be checked on a yearly basis as you arrived to require thyroid replacement treatment at some point time. Labs also revealed a low serum sodium level at 130. Normal is 140. This can cause weakness nausea and sometimes lightheaded feeling. It appears to be secondary primarily to gabapentin use. It is important that you drink juices and/or Gatorade Powerade on daily basis and not only water to prevent further dilution of your serum sodium level. CT of the chest and abdomen was completed with oral and IV contrast. It shows a moderate hiatal hernia which means you have received 3 reflux of acid contents from your stomach up into the lower food pipe. The CT of the chest otherwise with was within normal limits showing no sign of any cancer or nodules. CT of the abdomen reveals mild constipation primarily in the left hemicolon with increased air up underneath the left diaphragm likely causing her current abdominal pain. The liver was within normal limits as was the pancreas. Gallbladder is absent. Kidneys and ureters are normal. Bladder was noted to be very full on CT exam. Pelvis otherwise normal. Note the contrast that you were given orally will cause you to have at least 2 bowel movements tonight and likely provide bowel cleanse. He may require MiraLAX powder 17 g or 1 scoop daily to prevent chronic constipation issues which will occur secondary to current medication usage. At this time no changes in medications are to be made. Just follow-up with Dr. Werner in the clinic in the next week to 10 days as findings of today's lab work and make changes as needed. Also further investigations are likely required as to the cause of your anemia or low hemoglobin. - My Orders Last 24 Hours: My Active Orders 07/31/18 15:16 EKG 12 Lead [EKG Documentation Completion] [RC] STAT Peripheral IV Care [RC] . DIRECTED 07/31/18 15:17 Peripheral IV Care [RC] . DIRECTED 07/31/18 16:23 Chest 2V [CR] Stat 07/31/18 17:06 Chest Abdomen Pelvis w Cont [CT] Stat - Assessment/Plan Last 24 Hours: My Active Orders 07/31/18 15:16 EKG 12 Lead [EKG Documentation Completion] [RC] STAT Peripheral IV Care [RC] . DIRECTED 07/31/18 15:17 Peripheral IV Care [RC] . DIRECTED 07/31/18 16:23 Chest 2V [CR] Stat 07/31/18 17:06 Chest Abdomen Pelvis w Cont [CT] Stat <Christophe Phan - Last Filed: 07/31/18 19:56> Course - Re-Assessments/Exams Free Text/Narrative Re-Assessment/Exam: 07/31/18 19:22 Care was assumed essentially from Dr. Brandy Christiansen. Awaiting CT of the chest and abdomen. This is due to complaints of abdominal pain and question whether or not she has a few lung nodules on the right lung field. On my assessment of CT chest abdomen pelvis with and without contrast I do not visualize any lung nodules. The shadows I think perceived on chest x-ray vascular in origin. Cardiac silhouette is within normal limits without any pericardial effusion. Lungs are otherwise clear as well other than light slight scarring at both lung bases. There is contrast media within the distal esophagus and a moderate sized hiatal hernia. Abdomen reveals a homogeneous looking liver with slightly dilated intrahepatic ducts.. Gallbladder is absent. Pancreas appears normal. Stomach is mildly distended with air. There is increased air throughout the left hemicolon particularly left upper quadrant of the abdomen. There is moderate amount of stool throughout the colon. Bladder is very full. Kidneys appear to be within normal limits with no obstruction of the ureters identified. Uterus and fallopian tubes visualized and appear to be normal. Ovaries are not visible. Diffuse degenerative changes appreciated throughout the lower thoracic spine and diffusely throughout the lumbar spine. I will await the final radiology report. Review of the labs reveals mild anemia with hemoglobin of 10.0. MCV is mildly elevated at 96.2. Also mild hyponatremia at 130. Unclear if this is dilutional related to use of gabapentin. Will have serum osmolality checked. She also has subclinical hypothyroidism with a TSH mildly elevated at 4.45. 07/31/18 19:58 [facility] essentially agrees with my findings. They did identify that she has has previous ventral hernia repair. They also identified a old healed right seventh rib fracture. Departure - Departure Time of Disposition: 19:59 Condition: Fair - Discharge Information *PRESCRIPTION DRUG MONITORING PROGRAM REVIEWED*: No *COPY OF PRESCRIPTION DRUG MONITORING REPORT IN PATIENT ROSA: No - My Orders Last 24 Hours: My Active Orders 07/31/18 15:16 EKG 12 Lead [EKG Documentation Completion] [RC] STAT Peripheral IV Care [RC] . DIRECTED 07/31/18 15:17 Peripheral IV Care [RC] . DIRECTED 07/31/18 16:23 Chest 2V [CR] Stat 07/31/18 17:06 Chest Abdomen Pelvis w Cont [CT] Stat - Assessment/Plan Last 24 Hours: My Active Orders 07/31/18 15:16 EKG 12 Lead [EKG Documentation Completion] [RC] STAT Peripheral IV Care [RC] . DIRECTED 07/31/18 15:17 Peripheral IV Care [RC] . DIRECTED 07/31/18 16:23 Chest 2V [CR] Stat 07/31/18 17:06 Chest Abdomen Pelvis w Cont [CT] Stat <Hiral Christiansen A - Last Filed: 08/01/18 07:28> ED HPI GENERAL MEDICAL PROBLEM - General Source of Information: Reports: Patient History Limitations: Reports: No Limitations ED ROS GENERAL - Review of Systems Review Of Systems: See Below ED EXAM,LOWER BACK PAIN/INJURY - Physical Exam Exam: See Below Course - Re-Assessments/Exams Free Text/Narrative Re-Assessment/Exam: 07/31/18 18:34 Labs significant for hyponatremia with sodium 130, chem otherwise normal. Albumin is low at 2.9. HCT is low at 30 (from baseline of 36). CXR shows small bilat pulmonary nodules. Given her constellation of complaints, now including cough, chest pain, and abdominal pain, we will proceed with CT chest/abd/pelvis for further eval.
[2018-07-31] MEDS ORDERED: diphenhydrAMINE 50 MG/ML SDV IVPUSH ONE (18:35)
[2018-07-31] MEDS ORDERED: Diatrizoate Meglumine/Diatrizoate Sodium 37% 120 ML Bottle PO ONE (18:35)
[2018-07-31] MEDS ORDERED: Iopamidol 612 MG/ML 150 ML Bottle IVPUSH ONE (18:35)
[2018-07-31] MEDS ORDERED: Ketorolac 30 MG/ML SDV IVPUSH ONE (18:35)
[2018-07-31] MEDS ORDERED: Sodium Chloride 0.9% 1,000 ML IV ONE (18:36)
[2018-07-31] MEDS ORDERED: Prochlorperazine 10 MG/2 ML SDV IVPUSH ONE (18:36)
--- NOTE | 2018-08-01 17:03 | CR ---
Chest: Two views of the chest were obtained. Comparison: No prior chest x-ray. Heart size and mediastinum are normal. Lungs are clear. Mild scoliosis is noted within the spine. Prior left shoulder surgery is noted. Impression: 1. Nothing acute is appreciated on two-view chest x-ray. Diagnostic code #2
--- NOTE | 2018-08-02 09:20 | CT ---
CT chest Technique: Multiple axial sections through the chest were obtained. Intravenous contrast was utilized. Comparison: No previous chest CT, previous chest x-ray performed earlier on the same day (4:18 PM) Findings: Mediastinum and hilar regions show no adenopathy or mass. Mild atherosclerotic calcification noted within the aorta. Minimal coronary artery calcification is seen. No pericardial thickening is seen. Small hiatal hernia is seen. Contrast noted within the esophagus compatible with reflux. Lung window settings were reviewed which show mild scarring and/or atelectasis within both posterior lungs. Bone window settings were reviewed shows an old right sided rib fracture which appears healed. Mild degenerative spurring noted within the spine. Impression: 1. Hiatal hernia with gastroesophageal reflux of contrast. 2. Other incidental findings. Nothing acute is appreciated. Diagnostic code #2 I agree with preliminary report issued by [facility] ([facility] report finalized on 07/31/18, 8:52 PM Central Time) CT abdomen and pelvis Technique: Multiple axial sections were obtained from above the dome of the diaphragm inferiorly through the pubic symphysis. Intravenous and oral contrast has been given. Delayed images were obtained from above the kidneys inferiorly through the bladder. Comparison: Prior CT abdomen and pelvis exam of 11/24/17. Findings: Mild intrahepatic biliary duct dilatation is seen. Common bile duct is also mildly dilated at about 1 cm. Prior cholecystectomy is seen. No focal parenchymal abnormality is seen within the liver. Spleen appears within normal limits. Prior stomach surgery is noted. Anterior abdominal wall mesh is seen. Surgical anastomotic sutures seen within the left sided bowel. Adrenal glands show no nodule. Kidneys show symmetric contrast enhancement. No renal mass is seen. Delayed images show no contrast into the bladder raising the possibility of dehydration. Pancreas appears within normal limits. Aorta shows mild atherosclerotic change. No retroperitoneal adenopathy or mesenteric abnormalities are seen. No pelvic mass or adenopathy is seen. Appendix not visualized with certainty. No free fluid or inflammatory change is seen. Scattered degenerative change noted within the spine with mild scoliosis. Impression: 1. Intrahepatic and extrahepatic biliary duct dilatation. Prior cholecystectomy. Biliary change most likely representing residual change from previous cholecystectomy. 2. Previous abdominal surgery. 3. Other incidental findings as noted above. Diagnostic code #2 I agree with preliminary report issued by [facility] ([facility] report finalized on 07/22/1918, 8:52 PM Central Time)
== END 2018-07-31 20:20 | disposition home or self-care (01) ==
LOC: JD.ED 14:08
DX: G89.4 Chronic pain syndrome (principal); K59.01 Slow transit constipation; D64.9 Anemia, unspecified; E87.1 Hypo-osmolality and hyponatremia; E02 Subclinical iodine-deficiency hypothyroidism; R10.84 Generalized abdominal pain; I10 Essential (primary) hypertension; F41.9 Anxiety disorder, unspecified; F32.9 Major depressive disorder, single episode, unspecified; E11.9 Type 2 diabetes mellitus without complications; Z79.899 Other long term (current) drug therapy; Z88.1 Allergy status to other antibiotic agents; Z88.8 Allergy status to other drugs, medicaments and biological substances
CPT/HCPCS: 36415; 71046; 71260; 74177; 80053; 80306; 83735; 83930; 84439; 84443; 85025; 86140; 93005; 96361; 96374; 96375; 99284; G0480; J0780; J1200; J1885; J7040; J7050; Q9963; Q9967; 93010; 99285-25

== ENCOUNTER 2018-12-25 12:34 | Emergency (ER) | payer MEDICAID ==
[2018-12-25 12:57] VITALS: BP 121/82
[2018-12-25] MEDS ORDERED: methylPREDNISolone Sodium Succinate 125 MG/2 ML SDV IM ONE (13:54)
[2018-12-25] MEDS ORDERED: predniSONE 20 MG Tab PO ONE (13:56)
--- NOTE | 2018-12-25 13:57 | EDM.PDOC ---
ED HPI GENERAL MEDICAL PROBLEM - General Chief Complaint: Back Pain or Injury Stated Complaint: BACK AND HIP PAIN Time Seen by Provider: 12/25/18 12:35 Source of Information: Reports: Patient History Limitations: Reports: No Limitations - History of Present Illness INITIAL COMMENTS - FREE TEXT/NARRATIVE: 58 y/o F presents to ED for lower back pain that radiates down her R leg and stops at the knee. She states the main is muscular in nature and has not had any significant trauma. She feels she may have overused her muscles while going on a long trip to [facility] with her . She also had a "soft fall" onto a chair yesterday, but did not feel she injured herself. She was feeling weak d/t the overuse of her leg and that was why she fell. She states that rest makes it better. Activity makes the pain worse. Right now she is 3/10 pain, at its worst it's 10/10. She has tried Ibuprofen, Tylenol, Advil, and Baclofen with no relief. She does have a h/o seizures and is not sure if she had one perhaps last night in her sleep which may have exacerbated the pain. No other symptoms at this time. Lower Back Pain Score (Numeric/FACES): 2 - Related Data Allergies Allergy/AdvReac Type Severity Reaction Status Date / Time cephalexin Allergy Hives Verified 12/25/18 12:45 morphine Allergy Itching Verified 12/25/18 12:45 venlafaxine [From Effexor] Allergy Cannot Verified 12/25/18 12:45 Remember lisinopril AdvReac Muscle Verified 12/25/18 12:45 Aches Home Meds: Home Meds Losartan [Cozaar] 25 mg PO DAILY 12/16/15 [History] Gabapentin [Neurontin] 600 mg PO TID 06/23/16 [History] Pantoprazole [ProTONIX] 40 mg PO DAILY 07/15/16 [History] SUMAtriptan [Imitrex] 25 mg PO ASDIRECTED PRN 07/15/16 [History] Baclofen 10 mg PO TID 12/25/18 [History] ClonazePAM [KlonoPIN] 0.5 mg PO BID 12/25/18 [History] Lamictal. 1 dose PO DAILY 12/25/18 [History] PARoxetine HCl [Paroxetine HCl] 40 mg PO DAILY 12/25/18 [History] ZOLMitriptan [Zolmitriptan] 5 mg PO BID 12/25/18 [History] cloNIDine [Catapres] 0.1 mg PO BEDTIME PRN 12/25/18 [History] predniSONE [Prednisone] 20 mg PO DAILY #4 tablet 12/25/18 [Rx] traZODone HCl [Trazodone HCl] 100 mg PO BEDTIME PRN 12/25/18 [History] Past Medical History HEENT History: Reports: Allergic Rhinitis, Impaired Vision Other HEENT History: wears glasses, dentures Cardiovascular History: Reports: Hypertension Respiratory History: Reports: PE Gastrointestinal History: Reports: Bowel Obstruction, GERD, PUD Other Gastrointestinal History: Perotinitis, gastric ulcer Genitourinary History: Reports: None Musculoskeletal History: Reports: Back Pain, Chronic, Neck Pain, Chronic, Osteoarthritis Neurological History: Reports: Migraines Psychiatric History: Reports: Anxiety, Depression Endocrine/Metabolic History: Reports: Diabetes, Type II Hematologic History: Reports: Anemia, Iron Deficiency, Other (See Below) Other Hematologic History: 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 - Past Surgical History GI Surgical History: Reports: Bariatric Procedure, Cholecystectomy, Hernia, Abdominal, Small Bowel Female Surgical History: Reports: Hysterectomy, Salpingo-Oophorectomy, Tubal Ligation Musculoskeletal Surgical History: Reports: Shoulder Surgery Social & Family History - Family History Family Medical History: Noncontributory - Tobacco Use Smoking Status *Q: Current Every Day Smoker Years of Tobacco use: 30 Packs/Tins Daily: 1.5 - Caffeine Use Caffeine Use: Reports: Coffee - Recreational Drug Use Recreational Drug Use: No - Living Situation & Occupation Living situation: Reports: , with Spouse, with Family (Daughter, 2 grandkids) 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 GENERAL - Review of Systems Review Of Systems: See Below Constitutional: Reports: No Symptoms. Denies: Fever, Chills HEENT: Reports: No Symptoms Respiratory: Reports: No Symptoms. Denies: Shortness of Breath Cardiovascular: Reports: No Symptoms. Denies: Chest Pain Endocrine: Reports: No Symptoms GI/Abdominal: Reports: No Symptoms. Denies: Abdominal Pain, Diarrhea, Nausea, Vomiting : Reports: No Symptoms Musculoskeletal: Reports: Leg Pain (R upper leg only), Joint Pain (lower back pain, R hip pain) Skin: Reports: No Symptoms Neurological: Reports: No Symptoms. Denies: Confusion, Dizziness Psychiatric: Reports: No Symptoms Hematologic/Lymphatic: Reports: No Symptoms Immunologic: Reports: No Symptoms ED EXAM,LOWER BACK PAIN/INJURY - Physical Exam Exam: See Below Exam Limited By: No Limitations General Appearance: Alert, WD/WN, No Apparent Distress Eye Exam: Bilateral Eye: EOMI, PERRL Ears: Normal External Exam, Hearing Grossly Normal Nose: Normal Inspection, Normal Mucosa, No Blood Throat/Mouth: Normal Inspection, Normal Lips, Normal Teeth, Normal Gums, Normal Oropharynx, Normal Voice, No Airway Compromise Head: Atraumatic, Normocephalic Neck: Normal Inspection, Supple, Non-Tender, Full Range of Motion Respiratory/Chest: No Respiratory Distress, Lungs Clear, Normal Breath Sounds, No Accessory Muscle Use, Chest Non-Tender Cardiovascular: Normal Peripheral Pulses, Regular Rate, Rhythm, No Edema, No Gallop, No JVD, No Murmur, No Rub GI/Abdominal: Normal Bowel Sounds, Soft, Non-Tender, No Organomegaly, No Distention, No Abnormal Bruit, No Mass Back Exam: Normal Inspection, Decreased Range of Motion (d/t pain). No: Paraspinal Tenderness, Vertebral Tenderness Extremities: Normal Inspection, Non-Tender, No Pedal Edema, Normal Capillary Refill, Limited Range of Motion (d/t pain) Psychiatric: Normal Affect, Normal Mood Skin Exam: Warm, Dry, Intact, Normal Color, No Rash Course - Vital Signs Last Recorded V/S: Last Vital Signs Temp 99.3 F 12/25/18 12:55 Pulse 57 L 12/25/18 12:55 Resp BP 121/82 12/25/18 12:55 Pulse Ox 100 12/25/18 12:55 - Orders/Labs/Meds Meds: Medications Discontinued Medications Generic Name Dose Route Start Last Admin Trade Name Timmyq PRN Reason Stop Dose Admin Methylprednisolone Sodium Succinate 125 mg 12/25/18 13:54 Solu-Medrol IM 12/25/18 13:55 ONETIME ONE Prednisone 40 mg 12/25/18 13:56 12/25/18 14:05 Prednisone PO 12/25/18 13:57 40 mg ONETIME ONE Administration - Re-Assessments/Exams Free Text/Narrative Re-Assessment/Exam: 12/25/18 13:59 I have ordered Prednisone 40mg ONETIME No need for Xray as no history or signs of major trauma. PE benign. No instability. 12/25/18 15:05 Checked in with the pt. The prednisone helped a little bit, but she still has not had complete relief. At this time, it does not seem appropriate to give a muscle relaxant as she tried one at home with no relief. Also do no want to give opioids as this can lower the threshold for seizure, which would be contraindicated for her epilepsy. At this time, I explained I will send her home where she needs to relax, use heat/ice, and continue prednisone and she can f/u with her PCP if the pain does not improve. She and her agree with this plan. Departure - Departure Time of Disposition: 15:07 Disposition: Home, Self-Care 01 Condition: Good Clinical Impression: Muscle pain - Discharge Information *PRESCRIPTION DRUG MONITORING PROGRAM REVIEWED*: Not Applicable *COPY OF PRESCRIPTION DRUG MONITORING REPORT IN PATIENT ROSA: Not Applicable Prescriptions: predniSONE [Prednisone] 20 mg PO DAILY #4 tablet Instructions: Muscle Strain, [id number], Muscle Pain, Adult Referrals: Clifford Werner MD [Primary Care Provider] - Forms: ED Department Discharge Additional Instructions: You were seen in the ED today for lower back pain radiating down the right leg to the knee. At this time, as there was no traumatic injury, we tried conservative management with steroids with some relief. No muscle relaxants were given as you did try Baclofen at home with no relief. At this time, there does not seem to be an emergency or a need for Xray. It is recommended you continue Prednisone 20mg daily for 3-4 days, heat/cold therapy, and most importantly rest. If you develop new or worsening symptoms, please return to the ED. Recommend following up with your primary care doctor if there is no improvement.
== END 2018-12-25 15:16 | disposition home or self-care (01) ==
LOC: JD.ED 12:34
DX: M79.10 Myalgia, unspecified site (principal); M54.5 Low back pain; I10 Essential (primary) hypertension; E11.9 Type 2 diabetes mellitus without complications; F17.210 Nicotine dependence, cigarettes, uncomplicated; Z88.1 Allergy status to other antibiotic agents; Z88.8 Allergy status to other drugs, medicaments and biological substances; Z88.5 Allergy status to narcotic agent; Z79.899 Other long term (current) drug therapy; Z98.84 Bariatric surgery status; Z90.49 Acquired absence of other specified parts of digestive tract; Z90.710 Acquired absence of both cervix and uterus; Z98.51 Tubal ligation status
CPT/HCPCS: 99283; A9270

== ENCOUNTER 2019-06-22 19:11 | Inpatient (IN) | payer MEDICAID ==
[2019-06-22] MEDS ORDERED: Sodium Chloride 0.9% 1,000 ML IV ONE (19:19)
[2019-06-22] MEDS ORDERED: Lactated Ringers 1,000 ML ONE ×2 (19:30→20:26)
[2019-06-22] MEDS ORDERED: 50% Dextrose in Water 50 ML Syringe IVPUSH ONE (19:34)
[2019-06-22] MEDS ORDERED: Sodium Chloride 0.9% 10 ML Syringe FLUSH PRN (19:34)
[2019-06-22] MEDS ORDERED: 50% Dextrose in Water 50 ML Syringe ONE ×2 (19:35→20:30)
[2019-06-22] MEDS ORDERED: Lactated Ringers 1,000 ML IV ONE ×2 (19:53→20:51)
[2019-06-22] MEDS: 50% Dextrose in Water 50 ML Syringe IVPUSH PRN ×2 (19:53→20:31)
[2019-06-22] MEDS ORDERED: Naloxone 2 MG/2 ML Syringe ONE (20:27)
[2019-06-22] MEDS ORDERED: Dextrose 5%-Lactated Ringers 1,000 ML IV ONE (20:30)
[2019-06-22] MEDS ORDERED: Naloxone 2 MG/2 ML Syringe IVPUSH ONE (20:30)
[2019-06-22] MEDS ORDERED: Dextrose 5%-Lactated Ringers 1,000 ML ONE (20:30)
--- NOTE | 2019-06-22 20:32 | EDM.PDOC ---
ED HPI GENERAL MEDICAL PROBLEM - General Chief Complaint: Syncope Stated Complaint: [facility] Time Seen by Provider: 06/22/19 19:27 Source of Information: Reports: EMS, Family (), RN Notes Reviewed - History of Present Illness INITIAL COMMENTS - FREE TEXT/NARRATIVE: 59 year old female that has been brought in by EMS for hypoglycemia, altered mental status. Her or significant other came home from running errands and found her unreponsive. She was pale, diaphoretic unresponsive upon EMS arrival, glucose only in the low 30's. On arrival to ED glucose 108 but still pale, extremely drowsy, opens eyes but not answering questions. Still hypotensive with BP of 80/53 on arrival to ED. Also bradycardic with initial heart rate 51. Of note on multiple meds including clonazepam, clonidine depakote , gabapentin, paxil, and other meds as well including inderal 20 mg tid, see list for details. When asked about possible medication overdose her states that he "controls her meds" does not understand how that may have happened. - Related Data Allergies Allergy/AdvReac Type Severity Reaction Status Date / Time cephalexin Allergy Hives Verified 12/25/18 12:45 morphine Allergy Itching Verified 12/25/18 12:45 venlafaxine [From Effexor] Allergy Cannot Verified 12/25/18 12:45 Remember lisinopril AdvReac Muscle Verified 12/25/18 12:45 Aches Home Meds: Home Meds Baclofen 10 mg PO TID PRN 06/22/19 [History] Divalproex Sodium [Depakote ER] 250 mg PO BID 06/22/19 [History] Fluticasone Propionate [Flonase Allergy Relief] 2 spray NASBOTH DAILY 06/22/19 [ History] Furosemide 20 mg PO DAILY 06/22/19 [History] Gabapentin [Neurontin] 600 mg PO TID 06/22/19 [History] Galcanezumab-Gnlm [Emgality Pen] 06/22/19 [History] Ipratropium [Atrovent 0.06% Nasal [place]] 2 sprays NASBOTH TID 06/22/19 [History] Losartan/Hydrochlorothiazide [Losartan-HCTZ 100-12.5 MG] 1 tab PO DAILY [History] Multivitamin Gummies 06/22/19 [History] Nicotine [Nicotine Patch] 1 patch TRDERM DAILY 06/22/19 [History] Ondansetron HCl [Zofran] 4 mg PO Q8HR PRN 06/22/19 [History] PARoxetine HCl [Paxil] 40 mg PO DAILY 06/22/19 [History] Pantoprazole Sodium [Protonix] 40 mg PO DAILY 06/22/19 [History] Potassium Chloride [K-Tab ER] 10 meq PO DAILY 06/22/19 [History] Propranolol [Inderal] 20 mg PO TID 06/22/19 [History] SUMAtriptan Succinate [Imitrex] 100 mg PO Q2HR PRN 06/22/19 [History] cloNIDine [Catapres] 0.1 mg PO BEDTIME PRN 06/22/19 [History] clonazePAM [Klonopin] 0.5 mg PO BID 06/22/19 [History] diphenhydrAMINE [Benadryl] 25 mg PO DAILY PRN 06/22/19 [History] Past Medical History HEENT History: Reports: Allergic Rhinitis, Impaired Vision Other HEENT History: wears glasses, dentures Cardiovascular History: Reports: Hypertension Respiratory History: Reports: PE Gastrointestinal History: Reports: Bowel Obstruction, GERD, PUD Other Gastrointestinal History: Perotinitis, gastric ulcer Genitourinary History: Reports: None Musculoskeletal History: Reports: Back Pain, Chronic, Neck Pain, Chronic, Osteoarthritis Neurological History: Reports: Migraines Psychiatric History: Reports: Anxiety, Depression Endocrine/Metabolic History: Reports: Diabetes, Type II Hematologic History: Reports: Anemia, Iron Deficiency, Other (See Below) Other Hematologic History: 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 No: Evidence of Tongue Biting Head Exam: Atraumatic. No: Facial Swelling Neck: Supple, Full Range of Motion Respiratory/Chest: No Respiratory Distress, Lungs Clear, Normal Breath Sounds, No Accessory Muscle Use Cardiovascular: Bradycardia GI/Abdominal: Soft, Non-Tender Neuro Exam (Abbreviated): Slow to Respond (Patient is extremely drowsy, she does open eyes when spoken to but is not speaking in a coherent manner), Other ( Patient does squeeze fingers bilateral to command) Extremities: Normal Inspection, Normal Range of Motion. No: Pedal Edema, Increased Warmth, Redness Skin Exam: Pallor EKG INTERPRETATION EKG Date: 06/22/19 Rhythm: Other (sinus anastasiia) Trevor: Normal P-Wave: Present QRS: Normal ST-T: Normal Course - Vital Signs Last Recorded V/S: Last Vital Signs Temp 98 F 06/22/19 21:48 Pulse 57 L 06/22/19 21:48 Resp 12 06/22/19 21:48 BP 92/62 06/22/19 21:48 Pulse Ox 98 06/22/19 21:48 - Orders/Labs/Meds Orders: Active Orders 24 hr Category Date Time Status EKG 12 Lead [EKG Documentation Completion] [RC] STAT Care 06/22/19 19:32 Active Dextrose 50% in Water Med 06/22/19 20:45 Active 50 ml IVPUSH ASDIRECTED PRN Sodium Chloride 0.9% [Saline Flush] Med 06/22/19 19:34 Active 10 ml FLUSH ASDIRECTED PRN Peripheral IV Insertion Adult [OM.PC] Stat Oth 06/22/19 19:33 Ordered Medication Orders Albuterol/Ipratropium (Duoneb 3.0-0.5 Mg/3 Ml) 3 ml NEB Q4H PRN PRN Reason: Shortness Of Breath/wheezing Bisacodyl (Dulcolax) 5 mg PO DAILY PRN PRN Reason: Constipation Dextrose/Water (Dextrose 50% In Water) 50 ml IVPUSH ASDIRECTED PRN PRN Reason: Hypoglycemia Last Admin: 06/22/19 20:31 Dose: 50 ml Admin: 06/22/19 19:53 Dose: 50 ml Docusate Sodium (Colace) 100 mg PO BID PRN PRN Reason: Constipation Hydralazine HCl (Apresoline) 20 mg IVPUSH Q4H PRN PRN Reason: Hypertension Promethazine HCl 6.25 mg/ (Sodium Chloride) 50.25 mls @ 100 mls/hr IV Q6H PRN PRN Reason: Nausea/Vomiting Ibuprofen (Motrin) 400 mg PO Q6H PRN PRN Reason: Pain (mild 1-3) Insulin Human Lispro (Humalog) 0 unit SUBCUT Q3H JODI; Protocol Last Admin: 06/22/19 23:13 Dose: 2 units Ketorolac Tromethamine (Toradol) 30 mg IV Q6H PRN PRN Reason: Pain (moderate 4-6) Lorazepam (Ativan) 2 mg IVPUSH Q4H PRN PRN Reason: Seizures Metoprolol Tartrate (Lopressor) 5 mg IVPUSH Q4H PRN PRN Reason: Tachycardia Ondansetron HCl (Zofran) 4 mg IV Q6H PRN PRN Reason: Nausea/Vomiting Pantoprazole Sodium (Protonix Iv) 40 mg IV Q12HR JODI Senna/Docusate Sodium (Senna Plus) 1 tab PO BID PRN PRN Reason: Constipation Sodium Chloride (Saline Flush) 10 ml FLUSH ASDIRECTED PRN PRN Reason: Keep Vein Open Last Admin: 06/22/19 19:40 Dose: 10 ml Labs: Laboratory Tests 06/22/19 06/22/19 06/22/19 Range/Units 19:19 19:20 19:20 WBC 4.47 (3.98-10.04) K/mm3 RBC 3.40 L (3.98-5.22) M/mm3 Hgb 10.0 L (11.2-15.7) gm/L Hct 31.0 L (34.1-44.9) % MCV 91.2 D (79.4-94.8) fl MCH 29.4 (25.6-32.2) pg MCHC 32.3 (32.2-35.5) g/dl RDW Std Deviation 53.9 H (36.4-46.3) fL Plt Count 165 L (182-369) K/mm3 MPV 11.6 (9.4-12.3) fl Neut % (Auto) 37.1 (34.0-71.1) % Lymph % (Auto) 46.8 (19.3-51.7) % [place] % (Auto) 10.5 (4.7-12.5) % Eos % (Auto) 4.5 (0.7-5.8) Baso % (Auto) 0.9 (0.1-1.2) % Neut # (Auto) 1.66 (1.56-6.13) K/mm3 Lymph # (Auto) 2.09 (1.18-3.74) K/mm3 [place] # (Auto) 0.47 H (0.24-0.36) K/mm3 Eos # (Auto) 0.20 (0.04-0.36) K/mm3 Baso # (Auto) 0.04 (0.01-0.08) K/mm3 Sodium 136 (136-145) mEq/L Potassium 3.2 L (3.5-5.1) mEq/L Chloride 99 (98-107) mEq/L Carbon Dioxide 29 (21-32) mEq/L Anion Gap 11.2 (5-15) BUN 36 H (7-18) mg/dL Creatinine 1.4 H (0.55-1.02) mg/dL Est Cr Clr Drug Dosing 41.50 mL/min Estimated GFR (MDRD) 39 (>60) mL/min BUN/Creatinine Ratio 25.7 H (14-18) Glucose 88 (74-106) mg/dL POC Glucose 108 H (70-105) mg/dL Calcium 8.9 (8.5-10.1) mg/dL Total Bilirubin 0.3 (0.2-1.0) mg/dL AST 15 (15-37) U/L ALT 17 (14-59) U/L Alkaline Phosphatase 52 (46-116) U/L Total Protein 6.8 (6.4-8.2) g/dl Albumin 3.4 (3.4-5.0) g/dl Globulin 3.4 gm/dL Albumin/Globulin Ratio 1.0 (1-2) Ethyl Alcohol 0.00 (0.00) gm% 06/22/19 06/22/19 06/22/19 Range/Units 19:53 20:28 20:45 WBC (3.98-10.04) K/mm3 RBC (3.98-5.22) M/mm3 Hgb (11.2-15.7) gm/L Hct (34.1-44.9) % MCV (79.4-94.8) fl MCH (25.6-32.2) pg MCHC (32.2-35.5) g/dl RDW Std Deviation (36.4-46.3) fL Plt Count (182-369) K/mm3 MPV (9.4-12.3) fl Neut % (Auto) (34.0-71.1) % Lymph % (Auto) (19.3-51.7) % [place] % (Auto) (4.7-12.5) % Eos % (Auto) (0.7-5.8) Baso % (Auto) (0.1-1.2) % Neut # (Auto) (1.56-6.13) K/mm3 Lymph # (Auto) (1.18-3.74) K/mm3 [place] # (Auto) (0.24-0.36) K/mm3 Eos # (Auto) (0.04-0.36) K/mm3 Baso # (Auto) (0.01-0.08) K/mm3 Sodium (136-145) mEq/L Potassium (3.5-5.1) mEq/L Chloride (98-107) mEq/L Carbon Dioxide (21-32) mEq/L Anion Gap (5-15) BUN (7-18) mg/dL Creatinine (0.55-1.02) mg/dL Est Cr Clr Drug Dosing mL/min Estimated GFR (MDRD) (>60) mL/min BUN/Creatinine Ratio (14-18) Glucose (74-106) mg/dL POC Glucose 106 H 86 151 H (70-105) mg/dL Calcium (8.5-10.1) mg/dL Total Bilirubin (0.2-1.0) mg/dL AST (15-37) U/L ALT (14-59) U/L Alkaline Phosphatase (46-116) U/L Total Protein (6.4-8.2) g/dl Albumin (3.4-5.0) g/dl Globulin gm/dL Albumin/Globulin Ratio (1-2) Ethyl Alcohol (0.00) gm% Meds: Medications Generic Name Dose Route Start Last Admin Trade Name Timmyq PRN Reason Stop Dose Admin Albuterol/Ipratropium 3 ml 06/22/19 21:48 Duoneb 3.0-0.5 Mg/3 Ml NEB Q4H PRN Shortness Of Breath/wheezing Bisacodyl 5 mg 06/22/19 21:48 Dulcolax PO DAILY PRN Constipation Dextrose/Water 50 ml 06/22/19 20:45 06/22/19 20:31 Dextrose 50% In Water IVPUSH 50 ml ASDIRECTED PRN Administration Hypoglycemia Docusate Sodium 100 mg 06/22/19 21:48 Colace PO BID PRN Constipation Hydralazine HCl 20 mg 06/22/19 21:51 Apresoline IVPUSH Q4H PRN Hypertension Promethazine HCl 6.25 mg/ 50.25 mls @ 100 mls/hr 06/22/19 21:48 Sodium Chloride IV Q6H PRN Nausea/Vomiting Ibuprofen 400 mg 06/22/19 21:48 Motrin PO Q6H PRN Pain (mild 1-3) Insulin Human Lispro 0 unit 06/22/19 22:00 06/22/19 23:13 Humalog SUBCUT 2 units Q3H JODI Administration Protocol Ketorolac Tromethamine 30 mg 06/22/19 21:48 Toradol IV Q6H PRN Pain (moderate 4-6) Lorazepam 2 mg 06/22/19 21:51 Ativan IVPUSH Q4H PRN Seizures Metoprolol Tartrate 5 mg 06/22/19 21:51 Lopressor IVPUSH Q4H PRN Tachycardia Ondansetron HCl 4 mg 06/22/19 21:48 Zofran IV Q6H PRN Nausea/Vomiting Pantoprazole Sodium 40 mg 06/23/19 09:00 Protonix Iv IV Q12HR JODI Senna/Docusate Sodium 1 tab 06/22/19 21:48 Senna Plus PO BID PRN Constipation Sodium Chloride 10 ml 06/22/19 19:34 06/22/19 19:40 Saline Flush FLUSH 10 ml ASDIRECTED PRN Administration Keep Vein Open Discontinued Medications Generic Name Dose Route Start Last Admin Trade Name Timmyq PRN Reason Stop Dose Admin Dextrose/Water 50 ml 06/22/19 19:34 06/22/19 19:38 Dextrose 50% In Water IVPUSH 06/22/19 19:35 25 ml ONETIME ONE Administration Dextrose/Water Confirm 06/22/19 19:35 06/22/19 19:41 Dextrose 50% In Water Administered 06/22/19 19:36 Not Given Dose 50 ml .ROUTE .STK-MED ONE Dextrose/Water Confirm 06/22/19 20:30 06/22/19 22:00 Dextrose 50% In Water Administered 06/22/19 20:31 Not Given Dose 50 ml .ROUTE .STK-MED ONE Dextrose/Water 50 ml 06/22/19 21:51 Dextrose 50% In Water IVPUSH ASDIRECTED PRN Hypoglycemia Glucagon 1 mg 06/22/19 20:44 06/22/19 20:47 Glucagen IVPUSH 06/22/19 20:45 1 mg ONETIME ONE Administration Lactated Ringer's Confirm 06/22/19 19:30 06/22/19 22:00 Ringers, Lactated Administered 06/22/19 19:31 Not Given Dose 1,000 mls @ as directed .ROUTE .STK-MED ONE Lactated Ringer's Confirm 06/22/19 20:26 06/22/19 20:52 Ringers, Lactated Administered 06/22/19 20:27 Not Given Dose 1,000 mls @ as directed .ROUTE .STK-MED ONE Dextrose/Lactated Ringer's 1,000 mls @ 999 mls/hr 06/22/19 20:30 06/22/19 20: 39 Dextrose 5%-Lactated Ringers IV 06/22/19 21:30 999 mls/hr ONETIME ONE Administration Dextrose/Lactated Ringer's Confirm 06/22/19 20:30 06/22/19 22:00 Dextrose 5%-Lactated Ringers Administered 06/22/19 20:31 Not Given Dose 1,000 mls @ as directed .ROUTE .STK-MED ONE Lactated Ringer's 1,000 mls @ 999 mls/hr 06/22/19 20:51 06/22/19 20:52 Ringers, Lactated IV 06/22/19 21:51 999 mls/hr .BOLUS ONE Administration Sodium Chloride 1,000 mls @ 999 mls/hr 06/22/19 19:19 06/22/19 20:45 Normal Saline IV 06/22/19 20:19 999 mls/hr ONETIME ONE Administration Lactated Ringer's 1,000 mls @ 999 mls/hr 06/22/19 19:53 06/22/19 19:53 Ringers, Lactated IV 06/22/19 20:53 999 mls/hr .BOLUS ONE Administration Insulin Human Lispro 0 unit 06/22/19 22:00 06/22/19 22:39 Humalog SUBCUT Not Given [facility] Protocol Naloxone HCl 2 mg 06/22/19 20:30 06/22/19 20:39 Narcan IVPUSH 06/22/19 20:31 2 mg ONETIME ONE Administration Naloxone HCl Confirm 06/22/19 20:27 06/22/19 20:39 Narcan Administered 06/22/19 20:28 Not Given Dose 2 mg .ROUTE .[facility] ONE - Re-Assessments/Exams Free Text/Narrative Re-Assessment/Exam: 06/22/19 23:48 As noted glucose was only in the 30s upon EMS arrival. However there recheck prior to arrival ED was around 180. Vital that she was not waking up. I'm of my exam about 20-30 minutes later she was still extremely drowsy as noted opening eyes to voice not speaking in any comprehensible way. When I looked at old records I see that she did present with similar symptom molar J, polysubstance overdose about 2-1/2 years ago. As noted she is on multiple sedating medications. 06/22/19 23:49. With initial hypotension and bradycardia patient was bolused normal saline in one arm and lactated Ringer's in the other. Once that 1.5 L was infused we did hang another lactated Ringer's and normal saline. Blood pressure did improve to the 90s, heart rate did improve to the upper 50s. We did give 2 mg Narcan IV and with that she did open her eyes and became somewhat more responsive but still extremely drowsy. Labs came back with white blood count 4470 hemoglobin 10 BUN 36 creatinine 1.4 CO2 29 anion gap 11.2 urine drug screen was negative, EtOH negative. Was admitted to ICU for further evaluation and treatment. Departure - Departure Time of Disposition: 20:52 Disposition: Admitted As Inpatient 68 Condition: Serious Clinical Impression: Hypoglycemia Altered mental status Qualifiers: Altered mental status type: disorientation Qualified Code(s): R41.0 - Disorientation, unspecified Polysubstance overdose Qualifiers: Encounter type: initial encounter Injury intent: intentional self-harm Qualified Code(s): T50.902A - Poisoning by unspecified drugs, medicaments and biological substances, intentional self-harm, initial encounter - Discharge Information ED Communication - Discussed Case With (1) Discussed Case With (1): Admitting Provider (Dr Mckenzie, decision to admit at about 20:45.) - My Orders Last 24 Hours: My Active Orders 06/22/19 19:32 EKG 12 Lead [EKG Documentation Completion] [RC] STAT 06/22/19 19:33 Peripheral IV Insertion Adult [OM.PC] Stat 06/22/19 19:34 Sodium Chloride 0.9% [Saline Flush] 10 ml FLUSH ASDIRECTED PRN 06/22/19 20:45 Dextrose 50% in Water 50 ml IVPUSH ASDIRECTED PRN - Assessment/Plan Last 24 Hours: My Active Orders 06/22/19 19:32 EKG 12 Lead [EKG Documentation Completion] [RC] STAT 06/22/19 19:33 Peripheral IV Insertion Adult [OM.PC] Stat 06/22/19 19:34 Sodium Chloride 0.9% [Saline Flush] 10 ml FLUSH ASDIRECTED PRN 06/22/19 20:45 Dextrose 50% in Water 50 ml IVPUSH ASDIRECTED PRN
[2019-06-22] MEDS ORDERED: Glucagon,Human Recombinant 1 MG Vial IVPUSH ONE (20:44)
[2019-06-22] MEDS ORDERED: Docusate Sodium 100 MG Cap PO PRN (21:48)
[2019-06-22] MEDS ORDERED: Promethazine 6.25 MG in Sodium Chloride 0.9% 50 ML IV PRN (21:48)
[2019-06-22] MEDS ORDERED: Bisacodyl 5 MG Tab PO PRN (21:48)
[2019-06-22] MEDS ORDERED: Albuterol/Ipratropium 3.0-0.5 MG/3 ML Neb Soln NEB PRN (21:48)
[2019-06-22] MEDS ORDERED: Ibuprofen 400 MG Tab PO PRN (21:48)
[2019-06-22] MEDS ORDERED: Metoprolol Tartrate 5 MG/5 ML SDV IVPUSH PRN (21:51)
[2019-06-22] MEDS ORDERED: hydrALAZINE 20 MG/ML SDV IVPUSH PRN (21:51)
[2019-06-22] MEDS ORDERED: 50% Dextrose in Water 50 ML Syringe IVPUSH PRN (21:51)
[2019-06-22] MEDS ORDERED: LORazepam 2 MG/ML SDV IVPUSH PRN (21:51)
[2019-06-22] MEDS ORDERED: Insulin Lispro 100 Units/ML 3 ML Vial SUBCUT SCH (22:00)
--- NOTE | 2019-06-22 22:02 | PCM.SN ---
- Free Text/Narrative Note: patient seen and examined with at bedside. She is sedated but wakes up with sternal rub. However she is not able to hold even a brief conversation. Her pupils were dilated. Informed she is here for polypharmacy and possible accidental overdose with glucose dropping to as low as 36. Her treatment would be mainly supportive.
[2019-06-22] MEDS: Insulin Lispro 100 Units/ML 3 ML Vial SUBCUT SCH (23:13)
[2019-06-23] MEDS: Insulin Lispro 100 Units/ML 3 ML Vial SUBCUT SCH ×3 (01:32→06:43)
[2019-06-23] MEDS: 50% Dextrose in Water 50 ML Syringe IVPUSH PRN ×5 (04:12→07:45)
[2019-06-23] MEDS ORDERED: Pantoprazole 40 MG Vial IV SCH (09:00)
[2019-06-23] MEDS ORDERED: Baclofen 10 MG Tab PO PRN (11:12)
[2019-06-23] MEDS ORDERED: cloNIDine 0.1 MG Tab PO PRN (11:12)
[2019-06-23] MEDS ORDERED: Divalproex Sodium Delayed-Release 500 MG Tab.CR PO ONE ×2 (11:13→21:00)
[2019-06-23] MEDS: Ketorolac 30 MG/ML SDV IV PRN ×2 (11:32→19:23)
[2019-06-23] MEDS: 50% Dextrose in Water 50 ML Syringe IV PRN ×2 (12:28→17:42)
[2019-06-23] MEDS: Nicotine 21 MG/24 Hr Patch TRDERM SCH (13:38)
--- NOTE | 2019-06-23 13:42 | PCM.HP.2 ---
<Rickey Guzman - Last Filed: 06/23/19 14:32> H&P History of Present Illness - General Date of Service: 06/23/19 Admit Problem/Dx: Admission Diagnosis/Problem Admission Diagnosis/Problem Drug overdose Source of Information: Patient, EMS, Family History Limitations: Reports: No Limitations - History of Present Illness Initial Comments - Free Text/Narative: 59 year old female with history of hypertension, PE, GERD, PUD, Anxiety, depression, migraines, Type II DM, iron deficiency anemia, seizures and gastric bypass surgery brought in by EMS for hypoglycemia, altered mental status. Her or significant other came home from running errands and found her unreponsive. She was pale, diaphoretic unresponsive upon EMS arrival, glucose only in the low 30's. On arrival to ED glucose 108 but still pale, extremely drowsy, opens eyes but not answering questions. Still hypotensive with BP of 80 /53 on arrival to ED. Also bradycardic with initial heart rate 51. Of note on multiple meds including clonazepam, clonidine depakote, gabapentin, paxil, and other meds as well including inderal 20 mg tid, see list for details. When asked about possible medication overdose her states that he "controls her meds" does not understand how that may have happened. Patient does not recall what happened before she lost consciousness. She remembers feeling faint, her legs feeling as if they would give out, and then she stumbled and fell. Her initial workup in the ED shows Hgb= 10, potassium= 3.2, BUN= 36, Creatinine = 1.4, glucose 106. Headache Pain Score (Numeric/FACES): 4 Back Pain Score (Numeric/FACES): 5 - Related Data Allergies/Adverse Reactions: Allergies Allergy/AdvReac Type Severity Reaction Status Date / Time cephalexin Allergy Hives Verified 12/25/18 12:45 morphine Allergy Itching Verified 12/25/18 12:45 venlafaxine [From Effexor] Allergy Cannot Verified 12/25/18 12:45 Remember lisinopril AdvReac Muscle Verified 12/25/18 12:45 Aches Home Medications: Home Meds Divalproex Sodium [Depakote ER] 250 mg PO BID 06/22/19 [History] Fluticasone Propionate [Flonase Allergy Relief] 2 spray NASBOTH DAILY 06/22/19 [ History] Furosemide 20 mg PO DAILY 06/22/19 [History] Gabapentin [Neurontin] 600 mg PO TID 06/22/19 [History] Ipratropium [Atrovent 0.06% Nasal [place]] 2 sprays NASBOTH TID 06/22/19 [History] Losartan/Hydrochlorothiazide [Losartan-HCTZ 100-12.5 MG] 1 tab PO DAILY [History] PARoxetine HCl [Paxil] 40 mg PO DAILY 06/22/19 [History] Pantoprazole Sodium [Protonix] 40 mg PO DAILY 06/22/19 [History] Potassium Chloride [K-Tab ER] 20 meq PO DAILY 06/22/19 [History] Propranolol [Inderal] 20 mg PO TID 06/22/19 [History] cloNIDine [Catapres] 0.1 mg PO BEDTIME PRN 06/22/19 [History] clonazePAM [Klonopin] 1 mg PO TID 06/22/19 [History] Chlorthalidone 25 mg PO DAILY 06/24/19 [History] traZODone HCl [Trazodone HCl] 100 mg PO BEDTIME 06/24/19 [History] Past Medical History HEENT History: Reports: Allergic Rhinitis, Impaired Vision Other HEENT History: wears glasses, dentures Cardiovascular History: Reports: Hypertension Respiratory History: Reports: PE Gastrointestinal History: Reports: Bowel Obstruction, GERD, PUD Other Gastrointestinal History: Perotinitis, gastric ulcer Genitourinary History: Reports: None Musculoskeletal History: Reports: Back Pain, Chronic, Neck Pain, Chronic, Osteoarthritis Neurological History: Reports: Migraines Psychiatric History: Reports: Anxiety, Depression Endocrine/Metabolic History: Reports: Diabetes, Type II Other Endocrine/Metabolic History: hzx of DM II in the past. 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 - Past Surgical History GI Surgical History: Reports: Bariatric Procedure, Cholecystectomy, Hernia, Abdominal, Small Bowel Female Surgical History: Reports: Hysterectomy, Salpingo-Oophorectomy, Tubal Ligation Musculoskeletal Surgical History: Reports: Shoulder Surgery Social & Family History - Family History Family Medical History: Noncontributory - Tobacco Use Smoking Status *Q: Unknown Ever Smoked Years of Tobacco use: 40 Packs/Tins Daily: 1 - Caffeine Use Caffeine Use: Reports: Coffee Caffeine Use Comment: unknown - Recreational Drug Use Drug Use in Last 12 Months: No - Living Situation & Occupation Living situation: Reports: , with Spouse, with Family (Daughter, 2 grandkids) 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) H&P Review of Systems - Review of Systems: General: Reports: Weakness HEENT: Reports: No Symptoms Pulmonary: Reports: No Symptoms Cardiovascular: Reports: Syncope Gastrointestinal: Reports: No Symptoms Genitourinary: Reports: No Symptoms Musculoskeletal: Reports: No Symptoms Skin: Reports: No Symptoms Psychiatric: Reports: No Symptoms Neurological: Reports: Dizziness Hematologic/Lymphatic: Reports: No Symptoms Immunologic: Reports: No Symptoms Exam - Vital Signs Vital Signs: Last Vital Signs Temp 97.6 F 06/23/19 12:00 Pulse 74 06/23/19 12:00 Resp 16 06/23/19 12:00 BP 107/60 06/23/19 12:00 Pulse Ox 100 06/23/19 12:00 Weight: 74.117 kg - Exam General: Alert, Oriented, Cooperative HEENT: Conjunctiva Clear, EACs Clear, EOMI, Hearing Intact, Mucosa Moist & [employer] , Nares Patent, Normal Nasal Septum, Pupils Equal, Pupils Reactive Neck: Supple, Trachea Midline, Full Range of Motion. No: Lymphadenopathy, JVD Lungs: Clear to Auscultation, Normal Respiratory Effort. No: Crackles, Rhonchi , Rub, Wheezing Cardiovascular: Regular Rate, Regular Rhythm, Normal S1, Normal S2. No: Systolic Murmur, Diastolic Murmur, Rubs, Gallop/S3, Gallop/S4 GI/Abdominal Exam: Normal Bowel Sounds, Soft, Non-Tender, No Organomegaly, No Distention (Female) Exam: Deferred Rectal (Female) Exam: Deferred Back Exam: Normal Inspection, Full Range of Motion Extremities: Normal Inspection, Normal Range of Motion, Non-Tender, No Pedal Edema. No: Joint Swelling, Mottled, Redness Peripheral Pulses: 2+: Radial (L), Radial (R), Dorsalis Pedis (L), Dorsalis Pedis (R) Skin: Warm, Dry, Intact Neurological: Cranial Nerves Intact, Normal Speech, Normal Tone. No: Focal Deficit Neuro Extensive - Mental Status: Alert, Oriented x3, Normal Mood/Affect, Normal Cognition, Memory Intact Neuro Extensive - Motor, Sensory, Reflexes: CN II-XII Intact. No: Dysarthria, Tremor Psychiatric: Alert, Normal Affect, Normal Mood - Patient Data Lab Results Last 24 hrs: Laboratory Results - last 24 hr 06/22/19 06/22/19 06/22/19 Range/Units 19:19 19:20 19:20 WBC 4.47 (3.98-10.04) K/mm3 RBC 3.40 L (3.98-5.22) M/mm3 Hgb 10.0 L (11.2-15.7) gm/L Hct 31.0 L (34.1-44.9) % MCV 91.2 D (79.4-94.8) fl MCH 29.4 (25.6-32.2) pg MCHC 32.3 (32.2-35.5) g/dl RDW Std Deviation 53.9 H (36.4-46.3) fL Plt Count 165 L (182-369) K/mm3 MPV 11.6 (9.4-12.3) fl Neut % (Auto) 37.1 (34.0-71.1) % Lymph % (Auto) 46.8 (19.3-51.7) % [place] % (Auto) 10.5 (4.7-12.5) % Eos % (Auto) 4.5 (0.7-5.8) Baso % (Auto) 0.9 (0.1-1.2) % Neut # (Auto) 1.66 (1.56-6.13) K/mm3 Lymph # (Auto) 2.09 (1.18-3.74) K/mm3 [place] # (Auto) 0.47 H (0.24-0.36) K/mm3 Eos # (Auto) 0.20 (0.04-0.36) K/mm3 Baso # (Auto) 0.04 (0.01-0.08) K/mm3 Sodium 136 (136-145) mEq/L Potassium 3.2 L (3.5-5.1) mEq/L Chloride 99 (98-107) mEq/L Carbon Dioxide 29 (21-32) mEq/L Anion Gap 11.2 (5-15) BUN 36 H (7-18) mg/dL Creatinine 1.4 H (0.55-1.02) mg/dL Est Cr Clr Drug Dosing 41.50 mL/min Estimated GFR (MDRD) 39 (>60) mL/min BUN/Creatinine Ratio 25.7 H (14-18) Glucose 88 (74-106) mg/dL POC Glucose 108 H (70-105) mg/dL Calcium 8.9 (8.5-10.1) mg/dL Magnesium (1.8-2.4) mg/dl Total Bilirubin 0.3 (0.2-1.0) mg/dL AST 15 (15-37) U/L ALT 17 (14-59) U/L Alkaline Phosphatase 52 (46-116) U/L Total Protein 6.8 (6.4-8.2) g/dl Albumin 3.4 (3.4-5.0) g/dl Globulin 3.4 gm/dL Albumin/Globulin Ratio 1.0 (1-2) Urine Color (Yellow) Urine Appearance (Clear) Urine pH (5.0-8.0) Ur Specific [place] (1.005-1.030) Urine Protein (Negative) Urine Glucose (UA) (Negative) Urine Ketones (Negative) Urine Occult Blood (Negative) Urine Nitrite (Negative) Urine Bilirubin (Negative) Urine Urobilinogen (0.2-1.0) Ur Leukocyte Esterase (Negative) Urine Opiates Screen (FWDRWH=182) Ur Buprenorphine Scrn (CUTOFF=10) Ur Oxycodone Screen (ZDU0JG=625) Urine Methadone Screen (KUYCXM=640) Ur Propoxyphene Screen (KFASBO=612) Ur Barbiturates Screen (TRBASZ=680) Valproic Acid (50.0-100.0) ug/mL Ur Tricyclics Screen (AEAIQZ=933) Ur Phencyclidine Scrn (CUTOFF=25) Ur Amphetamine Screen (AZDEZY=054) U Methamphetamines Scrn (WEOPGM=585) U Benzodiazepines Scrn (MQFDTZ=329) U Cocaine Metab Screen (QMYPJQ=283) U Marijuana (THC) Screen (CUTOFF=50) Ethyl Alcohol 0.00 (0.00) gm% 06/22/19 06/22/19 06/22/19 Range/Units 19:53 20:28 20:45 WBC (3.98-10.04) K/mm3 RBC (3.98-5.22) M/mm3 Hgb (11.2-15.7) gm/L Hct (34.1-44.9) % MCV (79.4-94.8) fl MCH (25.6-32.2) pg MCHC (32.2-35.5) g/dl RDW Std Deviation (36.4-46.3) fL Plt Count (182-369) K/mm3 MPV (9.4-12.3) fl Neut % (Auto) (34.0-71.1) % Lymph % (Auto) (19.3-51.7) % [place] % (Auto) (4.7-12.5) % Eos % (Auto) (0.7-5.8) Baso % (Auto) (0.1-1.2) % Neut # (Auto) (1.56-6.13) K/mm3 Lymph # (Auto) (1.18-3.74) K/mm3 [place] # (Auto) (0.24-0.36) K/mm3 Eos # (Auto) (0.04-0.36) K/mm3 Baso # (Auto) (0.01-0.08) K/mm3 Sodium (136-145) mEq/L Potassium (3.5-5.1) mEq/L Chloride (98-107) mEq/L Carbon Dioxide (21-32) mEq/L Anion Gap (5-15) BUN (7-18) mg/dL Creatinine (0.55-1.02) mg/dL Est Cr Clr Drug Dosing mL/min Estimated GFR (MDRD) (>60) mL/min BUN/Creatinine Ratio (14-18) Glucose (74-106) mg/dL POC Glucose 106 H 86 151 H (70-105) mg/dL Calcium (8.5-10.1) mg/dL Magnesium (1.8-2.4) mg/dl Total Bilirubin (0.2-1.0) mg/dL AST (15-37) U/L ALT (14-59) U/L Alkaline Phosphatase (46-116) U/L Total Protein (6.4-8.2) g/dl Albumin (3.4-5.0) g/dl Globulin gm/dL Albumin/Globulin Ratio (1-2) Urine Color (Yellow) Urine Appearance (Clear) Urine pH (5.0-8.0) Ur Specific [place] (1.005-1.030) Urine Protein (Negative) Urine Glucose (UA) (Negative) Urine Ketones (Negative) Urine Occult Blood (Negative) Urine Nitrite (Negative) Urine Bilirubin (Negative) Urine Urobilinogen (0.2-1.0) Ur Leukocyte Esterase (Negative) Urine Opiates Screen (AJXMMF=059) Ur Buprenorphine Scrn (CUTOFF=10) Ur Oxycodone Screen (BEU5GY=925) Urine Methadone Screen (SWDYTU=793) Ur Propoxyphene Screen (KPQVSO=619) Ur Barbiturates Screen (FMQNQA=785) Valproic Acid (50.0-100.0) ug/mL Ur Tricyclics Screen (WMKGMS=025) Ur Phencyclidine Scrn (CUTOFF=25) Ur Amphetamine Screen (XOYFMS=296) U Methamphetamines Scrn (VRXSRW=241) U Benzodiazepines Scrn (CYUKBG=851) U Cocaine Metab Screen (WVUYXB=055) U Marijuana (THC) Screen (CUTOFF=50) Ethyl Alcohol (0.00) gm% 06/22/19 06/22/19 06/22/19 Range/Units 21:01 21:01 21:15 WBC (3.98-10.04) K/mm3 RBC (3.98-5.22) M/mm3 Hgb (11.2-15.7) gm/L Hct (34.1-44.9) % MCV (79.4-94.8) fl MCH (25.6-32.2) pg MCHC (32.2-35.5) g/dl RDW Std Deviation (36.4-46.3) fL Plt Count (182-369) K/mm3 MPV (9.4-12.3) fl Neut % (Auto) (34.0-71.1) % Lymph % (Auto) (19.3-51.7) % [place] % (Auto) (4.7-12.5) % Eos % (Auto) (0.7-5.8) Baso % (Auto) (0.1-1.2) % Neut # (Auto) (1.56-6.13) K/mm3 Lymph # (Auto) (1.18-3.74) K/mm3 [place] # (Auto) (0.24-0.36) K/mm3 Eos # (Auto) (0.04-0.36) K/mm3 Baso # (Auto) (0.01-0.08) K/mm3 Sodium (136-145) mEq/L Potassium (3.5-5.1) mEq/L Chloride (98-107) mEq/L Carbon Dioxide (21-32) mEq/L Anion Gap (5-15) BUN (7-18) mg/dL Creatinine (0.55-1.02) mg/dL Est Cr Clr Drug Dosing mL/min Estimated GFR (MDRD) (>60) mL/min BUN/Creatinine Ratio (14-18) Glucose (74-106) mg/dL POC Glucose 229 H (70-105) mg/dL Calcium (8.5-10.1) mg/dL Magnesium (1.8-2.4) mg/dl Total Bilirubin (0.2-1.0) mg/dL AST (15-37) U/L ALT (14-59) U/L Alkaline Phosphatase (46-116) U/L Total Protein (6.4-8.2) g/dl Albumin (3.4-5.0) g/dl Globulin gm/dL Albumin/Globulin Ratio (1-2) Urine Color Yellow (Yellow) Urine Appearance Clear (Clear) Urine pH 5.5 (5.0-8.0) Ur Specific [place] 1.010 (1.005-1.030) Urine Protein Negative (Negative) Urine Glucose (UA) Negative (Negative) Urine Ketones Negative (Negative) Urine Occult Blood Negative (Negative) Urine Nitrite Negative (Negative) Urine Bilirubin Negative (Negative) Urine Urobilinogen 0.2 (0.2-1.0) Ur Leukocyte Esterase Negative (Negative) Urine Opiates Screen Negative (SELIAU=736) Ur Buprenorphine Scrn Negative (CUTOFF=10) Ur Oxycodone Screen Negative (OBO6WU=258) Urine Methadone Screen Negative (WERJCC=323) Ur Propoxyphene Screen Negative (FTKWJN=895) Ur Barbiturates Screen Negative (SLDTKB=888) Valproic Acid (50.0-100.0) ug/mL Ur Tricyclics Screen Negative (HFCLIV=618) Ur Phencyclidine Scrn Negative (CUTOFF=25) Ur Amphetamine Screen Negative (TJVTMX=925) U Methamphetamines Scrn Negative (PONQJB=991) U Benzodiazepines Scrn Negative (GGLBKC=874) U Cocaine Metab Screen Negative (EZTWDY=215) U Marijuana (THC) Screen Negative (CUTOFF=50) Ethyl Alcohol (0.00) gm% 06/22/19 06/23/19 06/23/19 Range/Units 22:58 01:30 02:06 WBC (3.98-10.04) K/mm3 RBC (3.98-5.22) M/mm3 Hgb (11.2-15.7) gm/L Hct (34.1-44.9) % MCV (79.4-94.8) fl MCH (25.6-32.2) pg MCHC (32.2-35.5) g/dl RDW Std Deviation (36.4-46.3) fL Plt Count (182-369) K/mm3 MPV (9.4-12.3) fl Neut % (Auto) (34.0-71.1) % Lymph % (Auto) (19.3-51.7) % [place] % (Auto) (4.7-12.5) % Eos % (Auto) (0.7-5.8) Baso % (Auto) (0.1-1.2) % Neut # (Auto) (1.56-6.13) K/mm3 Lymph # (Auto) (1.18-3.74) K/mm3 [place] # (Auto) (0.24-0.36) K/mm3 Eos # (Auto) (0.04-0.36) K/mm3 Baso # (Auto) (0.01-0.08) K/mm3 Sodium (136-145) mEq/L Potassium (3.5-5.1) mEq/L Chloride (98-107) mEq/L Carbon Dioxide (21-32) mEq/L Anion Gap (5-15) BUN (7-18) mg/dL Creatinine (0.55-1.02) mg/dL Est Cr Clr Drug Dosing mL/min Estimated GFR (MDRD) (>60) mL/min BUN/Creatinine Ratio (14-18) Glucose (74-106) mg/dL POC Glucose 221 H 79 94 (70-105) mg/dL Calcium (8.5-10.1) mg/dL Magnesium (1.8-2.4) mg/dl Total Bilirubin (0.2-1.0) mg/dL AST (15-37) U/L ALT (14-59) U/L Alkaline Phosphatase (46-116) U/L Total Protein (6.4-8.2) g/dl Albumin (3.4-5.0) g/dl Globulin gm/dL Albumin/Globulin Ratio (1-2) Urine Color (Yellow) Urine Appearance (Clear) Urine pH (5.0-8.0) Ur Specific [place] (1.005-1.030) Urine Protein (Negative) Urine Glucose (UA) (Negative) Urine Ketones (Negative) Urine Occult Blood (Negative) Urine Nitrite (Negative) Urine Bilirubin (Negative) Urine Urobilinogen (0.2-1.0) Ur Leukocyte Esterase (Negative) Urine Opiates Screen (BLDVCS=130) Ur Buprenorphine Scrn (CUTOFF=10) Ur Oxycodone Screen (QRR7IM=528) Urine Methadone Screen (SWGUXV=687) Ur Propoxyphene Screen (NOFGDT=012) Ur Barbiturates Screen (YUIJGW=096) Valproic Acid (50.0-100.0) ug/mL Ur Tricyclics Screen (RTUGWB=173) Ur Phencyclidine Scrn (CUTOFF=25) Ur Amphetamine Screen (ZQYAHK=860) U Methamphetamines Scrn (JBHJHV=398) U Benzodiazepines Scrn (FNUYML=753) U Cocaine Metab Screen (VCSRKQ=454) U Marijuana (THC) Screen (CUTOFF=50) Ethyl Alcohol (0.00) gm% 06/23/19 06/23/19 06/23/19 Range/Units 04:09 04:10 04:10 WBC 4.73 (3.98-10.04) K/mm3 RBC 3.47 L (3.98-5.22) M/mm3 Hgb 10.0 L (11.2-15.7) gm/L Hct 31.6 L (34.1-44.9) % MCV 91.1 (79.4-94.8) fl MCH 28.8 (25.6-32.2) pg MCHC 31.6 L (32.2-35.5) g/dl RDW Std Deviation 53.7 H (36.4-46.3) fL Plt Count 145 L (182-369) K/mm3 MPV 11.8 (9.4-12.3) fl Neut % (Auto) 53.3 (34.0-71.1) % Lymph % (Auto) 35.7 (19.3-51.7) % [place] % (Auto) 9.1 (4.7-12.5) % Eos % (Auto) 1.3 (0.7-5.8) Baso % (Auto) 0.4 (0.1-1.2) % Neut # (Auto) 2.52 (1.56-6.13) K/mm3 Lymph # (Auto) 1.69 (1.18-3.74) K/mm3 [place] # (Auto) 0.43 H (0.24-0.36) K/mm3 Eos # (Auto) 0.06 (0.04-0.36) K/mm3 Baso # (Auto) 0.02 (0.01-0.08) K/mm3 Sodium 138 (136-145) mEq/L Potassium 4.1 (3.5-5.1) mEq/L Chloride 103 (98-107) mEq/L Carbon Dioxide 30 (21-32) mEq/L Anion Gap 9.1 (5-15) BUN 25 H (7-18) mg/dL Creatinine 0.9 (0.55-1.02) mg/dL Est Cr Clr Drug Dosing 64.56 mL/min Estimated GFR (MDRD) > 60 (>60) mL/min BUN/Creatinine Ratio 27.8 H (14-18) Glucose 69 L (74-106) mg/dL POC Glucose 66 L (70-105) mg/dL Calcium 9.0 (8.5-10.1) mg/dL Magnesium 1.8 (1.8-2.4) mg/dl Total Bilirubin (0.2-1.0) mg/dL AST (15-37) U/L ALT (14-59) U/L Alkaline Phosphatase (46-116) U/L Total Protein (6.4-8.2) g/dl Albumin (3.4-5.0) g/dl Globulin gm/dL Albumin/Globulin Ratio (1-2) Urine Color (Yellow) Urine Appearance (Clear) Urine pH (5.0-8.0) Ur Specific [place] (1.005-1.030) Urine Protein (Negative) Urine Glucose (UA) (Negative) Urine Ketones (Negative) Urine Occult Blood (Negative) Urine Nitrite (Negative) Urine Bilirubin (Negative) Urine Urobilinogen (0.2-1.0) Ur Leukocyte Esterase (Negative) Urine Opiates Screen (LGWITV=971) Ur Buprenorphine Scrn (CUTOFF=10) Ur Oxycodone Screen (ONX3AS=413) Urine Methadone Screen (KFGXZF=050) Ur Propoxyphene Screen (XHWORE=400) Ur Barbiturates Screen (FTMXPO=115) Valproic Acid (50.0-100.0) ug/mL Ur Tricyclics Screen (KUPIVR=421) Ur Phencyclidine Scrn (CUTOFF=25) Ur Amphetamine Screen (WJJTXZ=953) U Methamphetamines Scrn (XMFMFC=032) U Benzodiazepines Scrn (VCWNVO=381) U Cocaine Metab Screen (FKVBSZ=702) U Marijuana (THC) Screen (CUTOFF=50) Ethyl Alcohol (0.00) gm% 06/23/19 06/23/19 06/23/19 Range/Units 04:10 04:40 05:09 WBC (3.98-10.04) K/mm3 RBC (3.98-5.22) M/mm3 Hgb (11.2-15.7) gm/L Hct (34.1-44.9) % MCV (79.4-94.8) fl MCH (25.6-32.2) pg MCHC (32.2-35.5) g/dl RDW Std Deviation (36.4-46.3) fL Plt Count (182-369) K/mm3 MPV (9.4-12.3) fl Neut % (Auto) (34.0-71.1) % Lymph % (Auto) (19.3-51.7) % [place] % (Auto) (4.7-12.5) % Eos % (Auto) (0.7-5.8) Baso % (Auto) (0.1-1.2) % Neut # (Auto) (1.56-6.13) K/mm3 Lymph # (Auto) (1.18-3.74) K/mm3 [place] # (Auto) (0.24-0.36) K/mm3 Eos # (Auto) (0.04-0.36) K/mm3 Baso # (Auto) (0.01-0.08) K/mm3 Sodium (136-145) mEq/L Potassium (3.5-5.1) mEq/L Chloride (98-107) mEq/L Carbon Dioxide (21-32) mEq/L Anion Gap (5-15) BUN (7-18) mg/dL Creatinine (0.55-1.02) mg/dL Est Cr Clr Drug Dosing mL/min Estimated GFR (MDRD) (>60) mL/min BUN/Creatinine Ratio (14-18) Glucose (74-106) mg/dL POC Glucose 90 136 H (70-105) mg/dL Calcium (8.5-10.1) mg/dL Magnesium (1.8-2.4) mg/dl Total Bilirubin (0.2-1.0) mg/dL AST (15-37) U/L ALT (14-59) U/L Alkaline Phosphatase (46-116) U/L Total Protein (6.4-8.2) g/dl Albumin (3.4-5.0) g/dl Globulin gm/dL Albumin/Globulin Ratio (1-2) Urine Color (Yellow) Urine Appearance (Clear) Urine pH (5.0-8.0) Ur Specific [place] (1.005-1.030) Urine Protein (Negative) Urine Glucose (UA) (Negative) Urine Ketones (Negative) Urine Occult Blood (Negative) Urine Nitrite (Negative) Urine Bilirubin (Negative) Urine Urobilinogen (0.2-1.0) Ur Leukocyte Esterase (Negative) Urine Opiates Screen (TQQYUC=287) Ur Buprenorphine Scrn (CUTOFF=10) Ur Oxycodone Screen (BYD2BG=149) Urine Methadone Screen (ZXHZMN=991) Ur Propoxyphene Screen (BAOJUN=198) Ur Barbiturates Screen (FAKAWB=880) Valproic Acid 7.8 L (50.0-100.0) ug/mL Ur Tricyclics Screen (TBMHUG=161) Ur Phencyclidine Scrn (CUTOFF=25) Ur Amphetamine Screen (ASXEKQ=147) U Methamphetamines Scrn (CVYBAK=592) U Benzodiazepines Scrn (DPPIDG=503) U Cocaine Metab Screen (XHMKHV=855) U Marijuana (THC) Screen (CUTOFF=50) Ethyl Alcohol (0.00) gm% 0806/23/19 06/23/19 Range/Units 05:44 06:42 07:41 WBC (3.98-10.04) K/mm3 RBC (3.98-5.22) M/mm3 Hgb (11.2-15.7) gm/L Hct (34.1-44.9) % MCV (79.4-94.8) fl MCH (25.6-32.2) pg MCHC (32.2-35.5) g/dl RDW Std Deviation (36.4-46.3) fL Plt Count (182-369) K/mm3 MPV (9.4-12.3) fl Neut % (Auto) (34.0-71.1) % Lymph % (Auto) (19.3-51.7) % [place] % (Auto) (4.7-12.5) % Eos % (Auto) (0.7-5.8) Baso % (Auto) (0.1-1.2) % Neut # (Auto) (1.56-6.13) K/mm3 Lymph # (Auto) (1.18-3.74) K/mm3 [place] # (Auto) (0.24-0.36) K/mm3 Eos # (Auto) (0.04-0.36) K/mm3 Baso # (Auto) (0.01-0.08) K/mm3 Sodium (136-145) mEq/L Potassium (3.5-5.1) mEq/L Chloride (98-107) mEq/L Carbon Dioxide (21-32) mEq/L Anion Gap (5-15) BUN (7-18) mg/dL Creatinine (0.55-1.02) mg/dL Est Cr Clr Drug Dosing mL/min Estimated GFR (MDRD) (>60) mL/min BUN/Creatinine Ratio (14-18) Glucose (74-106) mg/dL POC Glucose 155 H 98 96 (70-105) mg/dL Calcium (8.5-10.1) mg/dL Magnesium (1.8-2.4) mg/dl Total Bilirubin (0.2-1.0) mg/dL AST (15-37) U/L ALT (14-59) U/L Alkaline Phosphatase (46-116) U/L Total Protein (6.4-8.2) g/dl Albumin (3.4-5.0) g/dl Globulin gm/dL Albumin/Globulin Ratio (1-2) Urine Color (Yellow) Urine Appearance (Clear) Urine pH (5.0-8.0) Ur Specific [place] (1.005-1.030) Urine Protein (Negative) Urine Glucose (UA) (Negative) Urine Ketones (Negative) Urine Occult Blood (Negative) Urine Nitrite (Negative) Urine Bilirubin (Negative) Urine Urobilinogen (0.2-1.0) Ur Leukocyte Esterase (Negative) Urine Opiates Screen (FJZKFA=064) Ur Buprenorphine Scrn (CUTOFF=10) Ur Oxycodone Screen (DKA1QF=968) Urine Methadone Screen (HLZSMX=429) Ur Propoxyphene Screen (STAJYD=709) Ur Barbiturates Screen (KXFTKX=415) Valproic Acid (50.0-100.0) ug/mL Ur Tricyclics Screen (WRGTPJ=713) Ur Phencyclidine Scrn (CUTOFF=25) Ur Amphetamine Screen (EFKLKB=520) U Methamphetamines Scrn (NNYKIB=633) U Benzodiazepines Scrn (FNIYUY=547) U Cocaine Metab Screen (YPTJRN=209) U Marijuana (THC) Screen (CUTOFF=50) Ethyl Alcohol (0.00) gm% 06/23/19 Range/Units 12:03 WBC (3.98-10.04) K/mm3 RBC (3.98-5.22) M/mm3 Hgb (11.2-15.7) gm/L Hct (34.1-44.9) % MCV (79.4-94.8) fl MCH (25.6-32.2) pg MCHC (32.2-35.5) g/dl RDW Std Deviation (36.4-46.3) fL Plt Count (182-369) K/mm3 MPV (9.4-12.3) fl Neut % (Auto) (34.0-71.1) % Lymph % (Auto) (19.3-51.7) % [place] % (Auto) (4.7-12.5) % Eos % (Auto) (0.7-5.8) Baso % (Auto) (0.1-1.2) % Neut # (Auto) (1.56-6.13) K/mm3 Lymph # (Auto) (1.18-3.74) K/mm3 [place] # (Auto) (0.24-0.36) K/mm3 Eos # (Auto) (0.04-0.36) K/mm3 Baso # (Auto) (0.01-0.08) K/mm3 Sodium (136-145) mEq/L Potassium (3.5-5.1) mEq/L Chloride (98-107) mEq/L Carbon Dioxide (21-32) mEq/L Anion Gap (5-15) BUN (7-18) mg/dL Creatinine (0.55-1.02) mg/dL Est Cr Clr Drug Dosing mL/min Estimated GFR (MDRD) (>60) mL/min BUN/Creatinine Ratio (14-18) Glucose (74-106) mg/dL POC Glucose 54 L (70-105) mg/dL Calcium (8.5-10.1) mg/dL Magnesium (1.8-2.4) mg/dl Total Bilirubin (0.2-1.0) mg/dL AST (15-37) U/L ALT (14-59) U/L Alkaline Phosphatase (46-116) U/L Total Protein (6.4-8.2) g/dl Albumin (3.4-5.0) g/dl Globulin gm/dL Albumin/Globulin Ratio (1-2) Urine Color (Yellow) Urine Appearance (Clear) Urine pH (5.0-8.0) Ur Specific [place] (1.005-1.030) Urine Protein (Negative) Urine Glucose (UA) (Negative) Urine Ketones (Negative) Urine Occult Blood (Negative) Urine Nitrite (Negative) Urine Bilirubin (Negative) Urine Urobilinogen (0.2-1.0) Ur Leukocyte Esterase (Negative) Urine Opiates Screen (AHTBBZ=461) Ur Buprenorphine Scrn (CUTOFF=10) Ur Oxycodone Screen (CGJ1DB=119) Urine Methadone Screen (UAKKOI=551) Ur Propoxyphene Screen (TTVOPP=390) Ur Barbiturates Screen (VFMKWX=609) Valproic Acid (50.0-100.0) ug/mL Ur Tricyclics Screen (QGLVMO=111) Ur Phencyclidine Scrn (CUTOFF=25) Ur Amphetamine Screen (CMKSTQ=944) U Methamphetamines Scrn (HRDPOF=829) U Benzodiazepines Scrn (ZSOANC=091) U Cocaine Metab Screen (OVBZKH=376) U Marijuana (THC) Screen (CUTOFF=50) Ethyl Alcohol (0.00) gm% Result Diagrams: 06/23/19 04:10 06/23/19 04:10 - Problem List (1) Altered mental status SNOMED Code(s): 803412074 ICD Code: R41.82 - ALTERED MENTAL STATUS, UNSPECIFIED Status: Acute Current Visit: Yes Qualifiers: Altered mental status type: disorientation Qualified Code(s): R41.0 - Disorientation, unspecified (2) Hypoglycemia SNOMED Code(s): 418011552 ICD Code: E16.2 - HYPOGLYCEMIA, UNSPECIFIED Status: Acute Current Visit: Yes (3) Polysubstance overdose SNOMED Code(s): 54672120 ICD Code: T50.901A - POISONING BY UNSP DRUG/MEDS/BIOL SUBST, ACCIDENTAL, INIT Status: Acute Current Visit: Yes Qualifiers: Encounter type: initial encounter Injury intent: intentional self-harm Qualified Code(s): T50.902A - Poisoning by unspecified drugs, medicaments and biological substances, intentional self-harm, initial encounter (4) Anemia SNOMED Code(s): 972008972 ICD Code: D64.9 - ANEMIA, UNSPECIFIED Status: Acute Current Visit: No Qualifiers: Anemia type: unspecified type Qualified Code(s): D64.9 - Anemia, unspecified Orders Last 24hrs: Active Orders 24 hr Category Date Time Status Admission Status [Patient Status] [ADT] Routine ADT 06/22/19 20:52 Active Antiembolic Devices [RC] QSHIFT Care 06/22/19 21:50 Active Blood Glucose Check, Bedside [RC] QIDACANDBED Care 06/22/19 21:52 Active Cardiac Monitoring [RC] CONTINUOUS Care 06/22/19 21:49 Active EKG 12 Lead [EKG Documentation Completion] [RC] STAT Care 06/22/19 19:32 Active Height and Weight [RC] 04 Care 06/22/19 21:48 Active Insert Denis Catheter [Insert Urinary Catheter] [OM.PC] Care 06/22/19 21:30 Ordered Q24H Intake and Output [RC] Q12H Care 06/22/19 21:48 Active Notify Provider Consults [RC] ASDIRECTED Care 06/22/19 21:51 Active Oxygen Therapy [RC] ASDIRECTED Care 06/22/19 21:25 Active Oxygen Therapy [RC] PRN Care 06/22/19 21:48 Active RT Aerosol Therapy [RC] ASDIRECTED Care 06/22/19 21:50 Active Up With Assistance [RC] ASDIRECTED Care 06/22/19 21:48 Active VTE/DVT Education [RC] Care 06/22/19 21:48 Active Vital Signs [RC] Q4HR Care 06/22/19 21:48 Active Consult to Case Management/Sales Supervisor [CONS] Cons 06/22/19 21:48 Active Routine Consult to Physician [CONS] Routine Cons 06/22/19 21:48 Active Consult to Spiritual Care [CONS] Routine Cons 06/22/19 21:48 Active OT Evaluation and Treatment [CONS] Routine Cons 06/22/19 21:48 Active PT Evaluation and Treatment [CONS] Routine Cons 06/22/19 21:48 Active Regular Diet [DIET] Diet 06/23/19 Breakfast Active BASIC METABOLIC PANEL,BMP [CHEM] AM Lab 06/24/19 05:11 Ordered BASIC METABOLIC PANEL,BMP [CHEM] AM Lab 06/25/19 05:11 Ordered BASIC METABOLIC PANEL,BMP [CHEM] AM Lab 06/26/19 05:11 Ordered BASIC METABOLIC PANEL,BMP [CHEM] AM Lab 06/27/19 05:11 Ordered CBC WITH AUTO DIFF [HEME] AM Lab 06/24/19 05:11 Ordered CBC WITH AUTO DIFF [HEME] AM Lab 06/25/19 05:11 Ordered CBC WITH AUTO DIFF [HEME] AM Lab 06/26/19 05:11 Ordered CBC WITH AUTO DIFF [HEME] AM Lab 06/27/19 05:11 Ordered MAGNESIUM [CHEM] AM Lab 06/24/19 05:11 Ordered MAGNESIUM [CHEM] AM Lab 06/25/19 05:11 Ordered MAGNESIUM [CHEM] AM Lab 06/26/19 05:11 Ordered MAGNESIUM [CHEM] AM Lab 06/27/19 05:11 Ordered Albuterol/Ipratropium [DuoNeb 3.0-0.5 MG/3 ML] Med 06/22/19 21:48 Active 3 ml NEB Q4H PRN Baclofen [Lioresal] Med 06/23/19 11:12 Active 10 mg PO TID PRN Bisacodyl [Dulcolax] Med 06/22/19 21:48 Active 5 mg PO DAILY PRN ClonazePAM [KlonoPIN] Med 06/23/19 21:00 Active 0.5 mg PO BID Dextrose 50% in Water Med 06/23/19 12:17 Active 50 ml IV ASDIRECTED PRN Divalproex Sodium Med 06/24/19 21:00 Ordered 1,000 mg PO DAILY Divalproex Sodium [Depakote] Med 06/23/19 21:00 Once 500 mg PO ONETIME ONE Docusate Sodium [Colace] Med 06/22/19 21:48 Active 100 mg PO BID PRN Docusate Sodium/Sennosides [Senna Plus] Med 06/22/19 21:48 Active 1 tab PO BID PRN Fluticasone Propionate [Flonase] Med 06/24/19 09:00 Active 0 gm NASBOTH DAILY Furosemide [Lasix] Med 06/24/19 09:00 Active 20 mg PO DAILY Gabapentin [Neurontin] Med 06/23/19 15:00 Active 600 mg PO TID Glycopyrrolate [Seebri Neohaler] Med 06/23/19 21:00 Active 0 mcg IH BID Ibuprofen [Motrin] Med 06/22/19 21:48 Active 400 mg PO Q6H PRN Ketorolac [Toradol] Med 06/22/19 21:48 Active 30 mg IV Q6H PRN LORazepam [Ativan] Med 06/22/19 21:51 Active 2 mg IVPUSH Q4H PRN Losartan [Cozaar] Med 06/24/19 09:00 Active 100 mg PO DAILY Metoprolol Tartrate [Lopressor] Med 06/22/19 21:51 Active 5 mg IVPUSH Q4H PRN Nicotine [Habitrol] Med 06/23/19 13:00 Active 21 mg TRDERM Q24H Ondansetron [Zofran] Med 06/22/19 21:48 Active 4 mg IV Q6H PRN PARoxetine [Paxil] Med 06/23/19 21:00 Active 40 mg PO BEDTIME Pantoprazole [ProTONIX] Med 06/23/19 21:00 Active 40 mg PO Q12H Potassium Chloride [Klor-Con 10] Med 06/24/19 09:00 Active 10 meq PO DAILY Promethazine [Phenergan] 6.25 mg Med 06/22/19 21:48 Active Sodium Chloride 0.9% [Normal Saline] 50 ml IV Q6H Propranolol [Inderal] Med 06/23/19 15:00 Active 20 mg PO TID Remove Patch Med 06/24/19 13:00 Active 1 ea TRDERM Q24H SUMAtriptan [Imitrex] Med 06/23/19 11:12 Active 100 mg PO Q2H PRN Sodium Chloride 0.9% [Saline Flush] Med 06/22/19 19:34 Active 10 ml FLUSH ASDIRECTED PRN cloNIDine [Catapres] Med 06/23/19 11:12 Active 0.1 mg PO BEDTIME PRN hydrALAZINE [Apresoline] Med 06/22/19 21:51 Active 20 mg IVPUSH Q4H PRN hydroCHLOROthiazide Med 06/24/19 09:00 Active 12.5 mg PO DAILY Peripheral IV Insertion Adult [OM.PC] Stat Oth 06/22/19 19:33 Ordered Sequential Compression Device [OM.PC] Per Unit Routine Oth 06/22/19 21:49 Ordered Resuscitation Status Routine Resus Stat 06/22/19 21:48 Ordered Medication Orders Albuterol/Ipratropium (Duoneb 3.0-0.5 Mg/3 Ml) 3 ml NEB Q4H PRN PRN Reason: Shortness Of Breath/wheezing Baclofen (Lioresal) 10 mg PO TID PRN PRN Reason: Muscle Spasm Bisacodyl (Dulcolax) 5 mg PO DAILY PRN PRN Reason: Constipation Clonazepam (Klonopin) 0.5 mg PO BID JODI Clonidine HCl (Catapres) 0.1 mg PO BEDTIME PRN PRN Reason: Sleep Dextrose/Water (Dextrose 50% In Water) 50 ml IV ASDIRECTED PRN PRN Reason: Hypoglycemia Last Admin: 06/23/19 12:28 Dose: 25 ml Divalproex Sodium (Depakote) 500 mg PO ONETIME ONE Stop: 06/23/19 21:01 Divalproex Sodium (Divalproex Sodium) 1,000 mg PO DAILY JODI Docusate Sodium (Colace) 100 mg PO BID PRN PRN Reason: Constipation Fluticasone Propionate (Flonase) 0 gm NASBOTH DAILY [facility] Furosemide (Lasix) 20 mg PO DAILY JODI Gabapentin (Neurontin) 600 mg PO TID JODI Glycopyrrolate (Seebri Neohaler) 0 mcg IH BID JODI Hydralazine HCl (Apresoline) 20 mg IVPUSH Q4H PRN PRN Reason: Hypertension Hydrochlorothiazide (Hydrochlorothiazide) 12.5 mg PO DAILY JODI Promethazine HCl 6.25 mg/ (Sodium Chloride) 50.25 mls @ 100 mls/hr IV Q6H PRN PRN Reason: Nausea/Vomiting Ibuprofen (Motrin) 400 mg PO Q6H PRN PRN Reason: Pain (mild 1-3) Ketorolac Tromethamine (Toradol) 30 mg IV Q6H PRN PRN Reason: Pain (moderate 4-6) Last Admin: 06/23/19 11:32 Dose: 30 mg Lorazepam (Ativan) 2 mg IVPUSH Q4H PRN PRN Reason: Seizures Losartan Potassium (Cozaar) 100 mg PO DAILY [facility] Metoprolol Tartrate (Lopressor) 5 mg IVPUSH Q4H PRN PRN Reason: Tachycardia Miscellaneous Information (Remove Patch) 1 ea TRDERM Q24H [facility] Nicotine (Habitrol) 21 mg TRDERM Q24H JODI Ondansetron HCl (Zofran) 4 mg IV Q6H PRN PRN Reason: Nausea/Vomiting Pantoprazole Sodium (Protonix) 40 mg PO Q12H [facility] Paroxetine HCl (Paxil) 40 mg PO BEDTIME [facility] Potassium Chloride (Klor-Con 10) 10 meq PO DAILY [facility] Propranolol HCl (Inderal) 20 mg PO TID JODI Senna/Docusate Sodium (Senna Plus) 1 tab PO BID PRN PRN Reason: Constipation Sodium Chloride (Saline Flush) 10 ml FLUSH ASDIRECTED PRN PRN Reason: Keep Vein Open Last Admin: 06/22/19 19:40 Dose: 10 ml Sumatriptan Succinate (Imitrex) 100 mg PO Q2H PRN PRN Reason: Headache Assessment/Plan Comment:: Assessment: Acute: Polypharmacy * Obtunded upon ED arrival * Numerous sedative drugs * Multiple prescribers * Trim medications * Hold home medications * Consult pharmacy Accidental overdose * Most likely secondary to polypharmacy * Consult psych to evaluate Hypoglycemia * Patient not eating well * Hx/o gastric bypass surgery * Monitor blood glucose * Regular meals Chronic: Anemia, Seizures, migraines, hypertension, anemia, Type II DM, Anxiety , Depression, Osteoarthritis Plan: Admit to Med/Surg Hold home medications Consult pharmacy to trim medications Consult psychiatry to evaluate Monitor blood glucose Regular meals Code status: full code Estimated length of stay: 1-2 days Prognosis: good <Power Mckenzie - Last Filed: 06/24/19 20:47> H&P History of Present Illness - General Admit Problem/Dx: Admission Diagnosis/Problem Admission Diagnosis/Problem Drug overdose H&P Review of Systems - Review of Systems: Review Of Systems: See Below Exam - Exam Exam: See Below - Vital Signs Vital Signs: Last Vital Signs Temp 36.6 C 06/24/19 16:00 Pulse 60 06/24/19 16:00 Resp 16 06/24/19 16:00 BP 137/90 06/24/19 16:00 Pulse Ox 98 06/24/19 16:00 - Patient Data Lab Results Last 24 hrs: Laboratory Results - last 24 hr 06/23/19 06/24/19 06/24/19 Range/Units 21:34 06:23 06:24 WBC 4.34 (3.98-10.04) K/mm3 RBC 3.18 L (3.98-5.22) M/mm3 Hgb 9.3 L (11.2-15.7) gm/L Hct 29.1 L (34.1-44.9) % MCV 91.5 (79.4-94.8) fl MCH 29.2 (25.6-32.2) pg MCHC 32.0 L (32.2-35.5) g/dl RDW Std Deviation 54.9 H (36.4-46.3) fL Plt Count 124 L (182-369) K/mm3 MPV 11.5 (9.4-12.3) fl Neut % (Auto) 41.7 (34.0-71.1) % Lymph % (Auto) 44.0 (19.3-51.7) % [place] % (Auto) 10.8 (4.7-12.5) % Eos % (Auto) 2.8 (0.7-5.8) Baso % (Auto) 0.7 (0.1-1.2) % Neut # (Auto) 1.81 (1.56-6.13) K/mm3 Lymph # (Auto) 1.91 (1.18-3.74) K/mm3 [place] # (Auto) 0.47 H (0.24-0.36) K/mm3 Eos # (Auto) 0.12 (0.04-0.36) K/mm3 Baso # (Auto) 0.03 (0.01-0.08) K/mm3 Sodium (136-145) mEq/L Potassium (3.5-5.1) mEq/L Chloride (98-107) mEq/L Carbon Dioxide (21-32) mEq/L Anion Gap (5-15) BUN (7-18) mg/dL Creatinine (0.55-1.02) mg/dL Est Cr Clr Drug Dosing mL/min Estimated GFR (MDRD) (>60) mL/min BUN/Creatinine Ratio (14-18) Glucose (74-106) mg/dL POC Glucose 117 H 65 L (70-105) mg/dL Calcium (8.5-10.1) mg/dL Magnesium (1.8-2.4) mg/dl 06/24/19 06/24/19 06/24/19 Range/Units 06:24 06:57 14:31 WBC (3.98-10.04) K/mm3 RBC (3.98-5.22) M/mm3 Hgb (11.2-15.7) gm/L Hct (34.1-44.9) % MCV (79.4-94.8) fl MCH (25.6-32.2) pg MCHC (32.2-35.5) g/dl RDW Std Deviation (36.4-46.3) fL Plt Count (182-369) K/mm3 MPV (9.4-12.3) fl Neut % (Auto) (34.0-71.1) % Lymph % (Auto) (19.3-51.7) % [place] % (Auto) (4.7-12.5) % Eos % (Auto) (0.7-5.8) Baso % (Auto) (0.1-1.2) % Neut # (Auto) (1.56-6.13) K/mm3 Lymph # (Auto) (1.18-3.74) K/mm3 [place] # (Auto) (0.24-0.36) K/mm3 Eos # (Auto) (0.04-0.36) K/mm3 Baso # (Auto) (0.01-0.08) K/mm3 Sodium 133 L (136-145) mEq/L Potassium 4.4 (3.5-5.1) mEq/L Chloride 100 (98-107) mEq/L Carbon Dioxide 27 (21-32) mEq/L Anion Gap 10.4 (5-15) BUN 18 (7-18) mg/dL Creatinine 0.9 (0.55-1.02) mg/dL Est Cr Clr Drug Dosing 64.56 mL/min Estimated GFR (MDRD) > 60 (>60) mL/min BUN/Creatinine Ratio 20.0 H (14-18) Glucose 79 (74-106) mg/dL POC Glucose 129 H 86 (70-105) mg/dL Calcium 8.1 L (8.5-10.1) mg/dL Magnesium 1.6 L (1.8-2.4) mg/dl 06/24/19 06/24/19 Range/Units 17:57 20:13 WBC (3.98-10.04) K/mm3 RBC (3.98-5.22) M/mm3 Hgb (11.2-15.7) gm/L Hct (34.1-44.9) % MCV (79.4-94.8) fl MCH (25.6-32.2) pg MCHC (32.2-35.5) g/dl RDW Std Deviation (36.4-46.3) fL Plt Count (182-369) K/mm3 MPV (9.4-12.3) fl Neut % (Auto) (34.0-71.1) % Lymph % (Auto) (19.3-51.7) % [place] % (Auto) (4.7-12.5) % Eos % (Auto) (0.7-5.8) Baso % (Auto) (0.1-1.2) % Neut # (Auto) (1.56-6.13) K/mm3 Lymph # (Auto) (1.18-3.74) K/mm3 [place] # (Auto) (0.24-0.36) K/mm3 Eos # (Auto) (0.04-0.36) K/mm3 Baso # (Auto) (0.01-0.08) K/mm3 Sodium (136-145) mEq/L Potassium (3.5-5.1) mEq/L Chloride (98-107) mEq/L Carbon Dioxide (21-32) mEq/L Anion Gap (5-15) BUN (7-18) mg/dL Creatinine (0.55-1.02) mg/dL Est Cr Clr Drug Dosing mL/min Estimated GFR (MDRD) (>60) mL/min BUN/Creatinine Ratio (14-18) Glucose (74-106) mg/dL POC Glucose 81 78 (70-105) mg/dL Calcium (8.5-10.1) mg/dL Magnesium (1.8-2.4) mg/dl Result Diagrams: 06/24/19 06:24 06/24/19 06:24 Problem List Initiated/Reviewed/Updated: Yes Orders Last 24hrs: Active Orders 24 hr Category Date Time Status Admission Status [Patient Status] [ADT] Routine ADT 06/24/19 11:50 Active BASIC METABOLIC PANEL,BMP [CHEM] AM Lab 06/25/19 05:11 Ordered BASIC METABOLIC PANEL,BMP [CHEM] AM Lab 06/26/19 05:11 Ordered BASIC METABOLIC PANEL,BMP [CHEM] AM Lab 06/27/19 05:11 Ordered CBC WITH AUTO DIFF [HEME] AM Lab 06/25/19 05:11 Ordered CBC WITH AUTO DIFF [HEME] AM Lab 06/26/19 05:11 Ordered CBC WITH AUTO DIFF [HEME] AM Lab 06/27/19 05:11 Ordered MAGNESIUM [CHEM] AM Lab 06/25/19 05:11 Ordered MAGNESIUM [CHEM] AM Lab 06/26/19 05:11 Ordered MAGNESIUM [CHEM] AM Lab 06/27/19 05:11 Ordered Chlorthalidone Med 06/25/19 09:00 Pending 25 mg PO DAILY ClonazePAM [KlonoPIN] Med 06/24/19 15:00 Active 1 mg PO TID Divalproex Sodium [Depakote ER] Med 06/24/19 21:00 Active 1,000 mg PO BEDTIME Fluticasone Propionate [Flonase] Med 06/24/19 09:00 Active 0 gm NASBOTH DAILY Furosemide [Lasix] Med 06/24/19 09:00 Active 20 mg PO DAILY Losartan [Cozaar] Med 06/24/19 09:00 Active 100 mg PO DAILY PARoxetine [Paxil] Med 06/23/19 21:00 Active 40 mg PO BEDTIME Pantoprazole [ProTONIX] Med 06/23/19 21:00 Active 40 mg PO Q12H Patient's Own Medication [Ptom] Med 06/24/19 09:00 Active 0 each NASBOTH TID Potassium Chloride [Klor-Con 10] Med 06/24/19 09:00 Active 10 meq PO DAILY Remove Patch Med 06/24/19 13:00 Active 1 ea TRDERM Q24H hydroCHLOROthiazide Med 06/24/19 09:00 Active 12.5 mg PO DAILY traZODone Med 06/24/19 21:00 Active 100 mg PO BEDTIME Medication Orders Albuterol/Ipratropium (Duoneb 3.0-0.5 Mg/3 Ml) 3 ml NEB Q4H PRN PRN Reason: Shortness Of Breath/wheezing Baclofen (Lioresal) 10 mg PO TID PRN PRN Reason: Muscle Spasm Bisacodyl (Dulcolax) 5 mg PO DAILY PRN PRN Reason: Constipation Clonazepam (Klonopin) 1 mg PO TID [facility] Last Admin: 06/24/19 20:07 Dose: 1 mg Admin: 06/24/19 14:35 Dose: 1 mg Clonidine HCl (Catapres) 0.1 mg PO BEDTIME PRN PRN Reason: Sleep Dextrose/Water (Dextrose 50% In Water) 50 ml IV ASDIRECTED PRN PRN Reason: Hypoglycemia Last Admin: 06/24/19 06:36 Dose: 25 ml Admin: 06/23/19 17:42 Dose: 25 ml Admin: 06/23/19 12:28 Dose: 25 ml Divalproex Sodium (Depakote Er) 1,000 mg PO BEDTIME [facility] Last Admin: 06/24/19 20:07 Dose: 1,000 mg Docusate Sodium (Colace) 100 mg PO BID PRN PRN Reason: Constipation Fluticasone Propionate (Flonase) 0 gm NASBOTH DAILY [facility] Last Admin: 06/24/19 10:13 Dose: Not Given Furosemide (Lasix) 20 mg PO DAILY [facility] Last Admin: 06/24/19 08:09 Dose: 20 mg Gabapentin (Neurontin) 600 mg PO TID [facility] Last Admin: 06/24/19 20:07 Dose: 600 mg Admin: 06/24/19 14:35 Dose: 600 mg Admin: 06/24/19 08:10 Dose: 600 mg Admin: 06/23/19 20:32 Dose: 600 mg Admin: 06/23/19 15:43 Dose: 600 mg Hydralazine HCl (Apresoline) 20 mg IVPUSH Q4H PRN PRN Reason: Hypertension Hydrochlorothiazide (Hydrochlorothiazide) 12.5 mg PO DAILY [facility] Last Admin: 06/24/19 08:10 Dose: 12.5 mg Promethazine HCl 6.25 mg/ (Sodium Chloride) 50.25 mls @ 100 mls/hr IV Q6H PRN PRN Reason: Nausea/Vomiting Ibuprofen (Motrin) 400 mg PO Q6H PRN PRN Reason: Pain (mild 1-3) Ketorolac Tromethamine (Toradol) 30 mg IV Q6H PRN PRN Reason: Pain (moderate 4-6) Last Admin: 06/24/19 18:42 Dose: 30 mg Admin: 06/24/19 02:26 Dose: 30 mg Admin: 06/23/19 19:23 Dose: 30 mg Admin: 06/23/19 11:32 Dose: 30 mg Lorazepam (Ativan) 2 mg IVPUSH Q4H PRN PRN Reason: Seizures Losartan Potassium (Cozaar) 100 mg PO DAILY [facility] Last Admin: 06/24/19 08:07 Dose: 100 mg Metoprolol Tartrate (Lopressor) 5 mg IVPUSH Q4H PRN PRN Reason: Tachycardia Miscellaneous Information (Remove Patch) 1 ea TRDERM Q24H [facility] Last Admin: 06/24/19 14:35 Dose: 1 ea Nicotine (Habitrol) 21 mg TRDERM Q24H [facility] Last Admin: 06/24/19 14:33 Dose: 21 mg Admin: 06/23/19 13:38 Dose: 21 mg Non-Formulary Medication (Chlorthalidone) 25 mg PO DAILY [facility] Ondansetron HCl (Zofran) 4 mg IV Q6H PRN PRN Reason: Nausea/Vomiting Last Admin: 06/24/19 10:14 Dose: 4 mg Admin: 06/23/19 21:34 Dose: 4 mg Pantoprazole Sodium (Protonix) 40 mg PO Q12H [facility] Last Admin: 06/24/19 20:08 Dose: 40 mg Admin: 06/24/19 08:09 Dose: 40 mg Admin: 06/23/19 20:31 Dose: 40 mg Paroxetine HCl (Paxil) 40 mg PO BEDTIME [facility] Last Admin: 06/24/19 20:07 Dose: 40 mg Admin: 06/23/19 20:32 Dose: 40 mg Atrovent Nasal [place] (0.03% Ptom) 0 each NASBOTH TID [facility] Last Admin: 06/24/19 20:09 Dose: 2 each Admin: 06/24/19 14:41 Dose: 2 each Admin: 06/24/19 10:24 Dose: Potassium Chloride (Klor-Con 10) 10 meq PO DAILY [facility] Last Admin: 06/24/19 08:09 Dose: 10 meq Propranolol HCl (Inderal) 20 mg PO TID [facility] Last Admin: 06/24/19 20:06 Dose: 20 mg Admin: 06/24/19 14:35 Dose: 20 mg Admin: 06/24/19 08:09 Dose: 20 mg Admin: 06/23/19 20:31 Dose: 20 mg Admin: 06/23/19 15:43 Dose: 20 mg Senna/Docusate Sodium (Senna Plus) 1 tab PO BID PRN PRN Reason: Constipation Sodium Chloride (Saline Flush) 10 ml FLUSH ASDIRECTED PRN PRN Reason: Keep Vein Open Last Admin: 06/22/19 19:40 Dose: 10 ml Sumatriptan Succinate (Imitrex) 100 mg PO Q2H PRN PRN Reason: Headache Last Admin: 06/24/19 10:15 Dose: 100 mg Admin: 06/23/19 21:34 Dose: 100 mg Trazodone HCl (Trazodone) 100 mg PO BEDTIME [facility] Last Admin: 06/24/19 20:08 Dose: 100 mg Assessment/Plan Comment:: Additional diagnoses: Hypokalemia - K 3.2 - 2/2 poor intake - Replete and monitor Acute Kidney Injury - BUN is 36; Cr pf 1.4; GFR of 39 - Baseline GFR is > 60 - 2/2 Volume Depletion/dehydration from poor oral intake - Currently receiving intravenous fluids The patient was seen and examined in concert with the medical student. The admission assessment and plans were discussed and agreed upon with me. Any changes or recommendations will be based on the patient's course.
[2019-06-23] MEDS: Gabapentin 600 MG Tab PO SCH ×2 (15:43→20:32)
[2019-06-23] MEDS: Propranolol 20 MG Tab PO SCH ×2 (15:43→20:31)
[2019-06-23] MEDS ORDERED: Divalproex Sodium Delayed-Release 500 MG Tab.CR PO SCH (17:00)
--- NOTE | 2019-06-23 18:20 | CONS ---
CONSULTING PHYSICIAN: Joss Sapp MD DATE OF CONSULTATION: 06/23/2019 Site where the services are provided is [facility] in [place], [place]. Site where the services are provided from our office is in [facility]. Length of service for this 60-minute inpatient Telemedicine event is 60 minutes. IDENTIFICATION: The patient is a 59-year-old female who is admitted to the inpatient MICU at [facility] on 06/22/2019. She is seen for psychiatric consultation per the request of staff attending, Dr. Mckenzie, and his treatment team. CHIEF COMPLAINT: "I do not know. I almost feel like I had inner ear infection or sinus infection." HISTORY OF PRESENT ILLNESS: The patient is a 59-year-old female who was found unresponsive by her family at home, who was brought to the emergency for further evaluation and admitted to the inpatient MICU at [facility] in [place], [place]. There was some concern on the part of emergency room staff that are evidently based on the reports I got from the family that the patient has had a suicide attempt; but on interview, the patient is adamantly denying this and denies any suicidality, whatsoever. She states "I did that about 2-1/2 years ago and I will never do that again" in regard to having a suicide attempt. The patient states "I went into the pantry and that is last thing I remember" after she was preparing food and has had a mild argument with her daughter. She states that "the home life is definitely stressful that is why I get anxiety." She states that she and her , her daughter, and her 2 grandchildren are all living under 1 roof there in [place], [place]. It has been pretty hard on her. She states she has been depressed and anxious even though she is on a combination of clonazepam and Paxil. Complicating her clinical situation is the fact that she has a seizure disorder, and there is concern that she may be having breakthrough seizures and that is the debi of this admission. She denies any illicit substance use or excessive alcohol use complicating her clinical picture. She denies that she is suicidal or homicidal again, and denies any psychotic, delusional, or paranoid symptoms. She does feel that the Paxil has helped her a little bit, but she does not feel that is helping her now and on top of that, she states that she feels the medications "make me so sleepy" and wondered if something could be done in this regard also. She states she would be open to having a higher dose of Paxil if sedation could be minimized. MEDICATIONS AT THE TIME OF PRESENTATION: 1. Klonopin 1 mg t.i.d. for anxiety reduction. 2. Paxil 20 mg q.a.m. for symptoms of depression. 3. Depakote ER 250 mg b.i.d. for seizure prophylaxis. 4. Gabapentin. 5. Benadryl p.r.n. 6. Baclofen t.i.d. p.r.n. ALLERGIES: 1. Morphine, which causes hives. 2. Cephalexin, which causes hives. 3. Lisinopril, which causes myalgias. 4. Venlafaxine, which causes sleep paralysis. 5. Wellbutrin, which causes seizures. 6. Chantix, which causes seizures. PAST MEDICAL HISTORY: 1. Status post gastric bypass in 2007. 2. History of seizures x17 years. REVIEW OF SYSTEMS: Aside from GI and neuro, all other major organ systems are negative at this point in time for acute difficulties or complications. FAMILY PSYCHIATRIC AND CD HISTORY: Patient reports father has a history of bipolar affective disease and alcoholism. She has a son who also has a seizure disorder. PAST PSYCHIATRIC AND CD HISTORY: The patient reports one psychiatric hospitalization in 2016. Denies any chemical dependency treatments. She reports one suicide attempt in 2016 by overdose in the face of alcohol intoxication. Denies any self-injurious behaviors or eating disorder history. She is a one-half pack per day smoker times at least 30 years. She states past psychiatric diagnosis is depression and anxiety. She states her regular outpatient psychiatrist is Dr. Sinclair. Her primary care doctor is Dr. Werner, and she also sees Dr. Powers. SOCIAL HISTORY: The patient was born and raised in [place]. She lived in [place] for 30 years over [employer], but had been living in [place] for the past 4 years or so. 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 She has been x1 for 38 years. She lives in [place] with her , her daughter, and 2 grandchildren. She is currently on disability for depression and for back and neck issues. She is not reporting any service or any current legal difficulties. She is [place] in terms of her jana formation. MENTAL STATUS EXAMINATION: The patient is a 59-year-old white female in no apparent distress. Speech is of regular rate and rhythm. The patient is cognitively oriented x3. Psychomotor activity is within normal limits. There are no abnormal motor movements or tics observed. Gait and station are not observed as the patient is seated on the side of bed for the purposes of the inpatient consult. Her mood is depressed and anxious. Affect is consistent with stated mood, but cooperative overall for the purposes of the inpatient consult. There is no behavioral or stated evidence of acute suicidal or homicidal ideation or acute psychotic, delusional, or paranoid symptoms. Thought processes are organized. There are no manic symptoms or loose associations evident. Judgment and insight appear unimpaired at this point in time. Motivation for help appears good. VITALS: 162 pounds, 95/61, 52, 16, 36.2 degrees centigrade. IMPRESSION: [place] I: 1. Major depressive disorder, recurrent, severe, F33.2. 2. Anxiety disorder, not otherwise specified, F41.9. [place] II: None. [place] III: 1. Status post gastric bypass in 2007 with approximately 250-pound weight loss. 2. Seizures x17 years. [place] IV: Severe. [place] V: 60. PLAN: 1. Increase the patient's Paxil from 20 mg daily to 40 mg daily and change dosing time from a.m. to bedtime to minimize daytime sedation. 2. Recommend clarifying the patient's Depakote ER dose and moving the dosing from b.i.d. to bedtime if possible, also to help minimize daytime sedation, yet provided for seizure prophylaxis and mood stability. 3. Continue Klonopin 0.5 mg t.i.d. to 1 mg t.i.d. for anxiety reduction and per treating staff discretion. 4. Other medications as dosed and prescribed by the patient's primary inpatient medical treatment team. 5. Recommend the patient follow up with Outpatient Psychiatry to assess overall function and efficacy of her newly adjusted psychiatric medication when she is medically stabilized and discharged back to the community. 6. We will continue to follow up with the patient on an as-needed basis while she remains on the inpatient MICU at [place], [place]. 7. We will follow up with the patient sooner if there are any complications in the interim. 8. Crisis plan is in place. BRANDON /[id number]
[2019-06-23] MEDS: Dextrose 5%-0.9% NaCl 1,000 ML IV SCH (18:26)
[2019-06-23] MEDS: Pantoprazole 40 MG Tab.CR PO SCH (20:31)
[2019-06-23] MEDS: ClonazePAM 1 MG Tab PO SCH (20:32)
[2019-06-23] MEDS: PARoxetine 20 MG Tab PO SCH (20:32)
[2019-06-23] MEDS ORDERED: Divalproex Sodium Delayed-Release 250 MG Tab.CR PO SCH (21:00)
[2019-06-23] MEDS ORDERED: Glycopyrrolate 15.6 MCG Cap.W.Dev Kit of 6 IH SCH (21:00)
[2019-06-23] MEDS: SUMAtriptan 50 MG Tab PO PRN (21:34)
[2019-06-23] MEDS: Ondansetron 4 MG/2 ML SDV IV PRN (21:34)
[2019-06-24] MEDS: Ketorolac 30 MG/ML SDV IV PRN ×2 (02:26→18:42)
[2019-06-24] MEDS: Dextrose 5%-0.9% NaCl 1,000 ML IV SCH (05:32)
[2019-06-24] MEDS: 50% Dextrose in Water 50 ML Syringe IV PRN (06:36)
[2019-06-24] MEDS: Losartan 100 MG Tab PO SCH (08:07)
[2019-06-24] MEDS: ClonazePAM 1 MG Tab PO SCH ×3 (08:08→20:07)
[2019-06-24] MEDS: Propranolol 20 MG Tab PO SCH ×3 (08:09→20:06)
[2019-06-24] MEDS: Potassium Chloride 10 MEQ Tab.ER PO SCH (08:09)
[2019-06-24] MEDS: Pantoprazole 40 MG Tab.CR PO SCH ×2 (08:09→20:08)
[2019-06-24] MEDS: Furosemide 20 MG Tab PO SCH (08:09)
[2019-06-24] MEDS: Gabapentin 600 MG Tab PO SCH ×3 (08:10→20:07)
[2019-06-24] MEDS: Hydrochlorothiazide 12.5 MG Cap PO SCH (08:10)
[2019-06-24] MEDS ORDERED: Magnesium Sulfate/Water 2 GM in Premix Bag 1 BAG IV STA (08:25)
[2019-06-24] MEDS ORDERED: Losartan 25 MG Tab PO SCH (09:00)
[2019-06-24] MEDS ORDERED: PARoxetine 20 MG Tab PO SCH (09:00)
--- NOTE | 2019-06-24 09:24 | PCM.PN ---
<Rickey Guzman - Last Filed: 06/24/19 09:19> - General Info Date of Service: 06/24/19 Admission Dx/Problem (Free Text): Admission Diagnosis/Problem Admission Diagnosis/Problem Drug overdose Subjective Update: Patient is doing well during rounds this morning. Patient states she did not sleep well last night. She is not receiving her usual dose of clonazepam and had some increased anxiety. She wishes to be placed back on her usual regimen. She is visually upset at the prospect of spending another night in the hospital. She expresses understanding that she should address her numerous medications, especially those that can be sedating, with her primary care provider. Functional Status: Reports: Pain Controlled - Review of Systems General: Reports: Fatigue HEENT: Reports: No Symptoms Pulmonary: Reports: No Symptoms Cardiovascular: Reports: No Symptoms Gastrointestinal: Reports: No Symptoms Genitourinary: Reports: No Symptoms Musculoskeletal: Reports: No Symptoms Skin: Reports: No Symptoms Neurological: Reports: No Symptoms Psychiatric: Reports: No Symptoms - Patient Data Vitals - Most Recent: Last Vital Signs Temp 98.2 F 06/24/19 08:00 Pulse 63 06/24/19 08:00 Resp 16 06/24/19 08:00 BP 118/86 06/24/19 08:07 Pulse Ox 100 06/24/19 08:00 Weight - Most Recent: 72.62 kg I&O - Last 24 Hours: Intake & Output 06/23/19 06/24/19 06/24/19 22:59 06:59 14:59 Intake Total 300 1188 Output Total 500 Balance 300 688 Lab Results Last 24 Hours: Laboratory Results - last 24 hr 06/23/19 06/23/19 06/23/19 Range/Units 12:03 13:40 17:37 WBC (3.98-10.04) K/mm3 RBC (3.98-5.22) M/mm3 Hgb (11.2-15.7) gm/L Hct (34.1-44.9) % MCV (79.4-94.8) fl MCH (25.6-32.2) pg MCHC (32.2-35.5) g/dl RDW Std Deviation (36.4-46.3) fL Plt Count (182-369) K/mm3 MPV (9.4-12.3) fl Neut % (Auto) (34.0-71.1) % Lymph % (Auto) (19.3-51.7) % Ste[place]s % (Auto) (4.7-12.5) % Eos % (Auto) (0.7-5.8) Baso % (Auto) (0.1-1.2) % Neut # (Auto) (1.56-6.13) K/mm3 Lymph # (Auto) (1.18-3.74) K/mm3 Stearns # (Auto) (0.24-0.36) K/mm3 Eos # (Auto) (0.04-0.36) K/mm3 Baso # (Auto) (0.01-0.08) K/mm3 Sodium (136-145) mEq/L Potassium (3.5-5.1) mEq/L Chloride (98-107) mEq/L Carbon Dioxide (21-32) mEq/L Anion Gap (5-15) BUN (7-18) mg/dL Creatinine (0.55-1.02) mg/dL Est Cr Clr Drug Dosing mL/min Estimated GFR (MDRD) (>60) mL/min BUN/Creatinine Ratio (14-18) Glucose (74-106) mg/dL POC Glucose 54 L 141 H 58 L (70-105) mg/dL Calcium (8.5-10.1) mg/dL Magnesium (1.8-2.4) mg/dl 06/23/19 06/24/19 06/24/19 Range/Units 21:34 06:23 06:24 WBC 4.34 (3.98-10.04) K/mm3 RBC 3.18 L (3.98-5.22) M/mm3 Hgb 9.3 L (11.2-15.7) gm/L Hct 29.1 L (34.1-44.9) % MCV 91.5 (79.4-94.8) fl MCH 29.2 (25.6-32.2) pg MCHC 32.0 L (32.2-35.5) g/dl RDW Std Deviation 54.9 H (36.4-46.3) fL Plt Count 124 L (182-369) K/mm3 MPV 11.5 (9.4-12.3) fl Neut % (Auto) 41.7 (34.0-71.1) % Lymph % (Auto) 44.0 (19.3-51.7) % Stearns % (Auto) 10.8 (4.7-12.5) % Eos % (Auto) 2.8 (0.7-5.8) Baso % (Auto) 0.7 (0.1-1.2) % Neut # (Auto) 1.81 (1.56-6.13) K/mm3 Lymph # (Auto) 1.91 (1.18-3.74) K/mm3 Stearns # (Auto) 0.47 H (0.24-0.36) K/mm3 Eos # (Auto) 0.12 (0.04-0.36) K/mm3 Baso # (Auto) 0.03 (0.01-0.08) K/mm3 Sodium (136-145) mEq/L Potassium (3.5-5.1) mEq/L Chloride (98-107) mEq/L Carbon Dioxide (21-32) mEq/L Anion Gap (5-15) BUN (7-18) mg/dL Creatinine (0.55-1.02) mg/dL Est Cr Clr Drug Dosing mL/min Estimated GFR (MDRD) (>60) mL/min BUN/Creatinine Ratio (14-18) Glucose (74-106) mg/dL POC Glucose 117 H 65 L (70-105) mg/dL Calcium (8.5-10.1) mg/dL Magnesium (1.8-2.4) mg/dl 06/24/19 06/24/19 Range/Units 06:24 06:57 WBC (3.98-10.04) K/mm3 RBC (3.98-5.22) M/mm3 Hgb (11.2-15.7) gm/L Hct (34.1-44.9) % MCV (79.4-94.8) fl MCH (25.6-32.2) pg MCHC (32.2-35.5) g/dl RDW Std Deviation (36.4-46.3) fL Plt Count (182-369) K/mm3 MPV (9.4-12.3) fl Neut % (Auto) (34.0-71.1) % Lymph % (Auto) (19.3-51.7) % Stearns % (Auto) (4.7-12.5) % Eos % (Auto) (0.7-5.8) Baso % (Auto) (0.1-1.2) % Neut # (Auto) (1.56-6.13) K/mm3 Lymph # (Auto) (1.18-3.74) K/mm3 Stearns # (Auto) (0.24-0.36) K/mm3 Eos # (Auto) (0.04-0.36) K/mm3 Baso # (Auto) (0.01-0.08) K/mm3 Sodium 133 L (136-145) mEq/L Potassium 4.4 (3.5-5.1) mEq/L Chloride 100 (98-107) mEq/L Carbon Dioxide 27 (21-32) mEq/L Anion Gap 10.4 (5-15) BUN 18 (7-18) mg/dL Creatinine 0.9 (0.55-1.02) mg/dL Est Cr Clr Drug Dosing 64.56 mL/min Estimated GFR (MDRD) > 60 (>60) mL/min BUN/Creatinine Ratio 20.0 H (14-18) Glucose 79 (74-106) mg/dL POC Glucose 129 H (70-105) mg/dL Calcium 8.1 L (8.5-10.1) mg/dL Magnesium 1.6 L (1.8-2.4) mg/dl Med Orders - Current: Current Medications Albuterol/Ipratropium (Duoneb 3.0-0.5 Mg/3 Ml) 3 ml NEB Q4H PRN PRN Reason: Shortness Of Breath/wheezing Baclofen (Lioresal) 10 mg PO TID PRN PRN Reason: Muscle Spasm Bisacodyl (Dulcolax) 5 mg PO DAILY PRN PRN Reason: Constipation Clonazepam (Klonopin) 0.5 mg PO BID [facility] Last Admin: 06/24/19 08:08 Dose: 0.5 mg Clonidine HCl (Catapres) 0.1 mg PO BEDTIME PRN PRN Reason: Sleep Dextrose/Water (Dextrose 50% In Water) 50 ml IV ASDIRECTED PRN PRN Reason: Hypoglycemia Last Admin: 06/24/19 06:36 Dose: 25 ml Divalproex Sodium (Depakote Er) 1,000 mg PO BEDTIME [facility] Docusate Sodium (Colace) 100 mg PO BID PRN PRN Reason: Constipation Fluticasone Propionate (Flonase) 0 gm NASBOTH DAILY [facility] Furosemide (Lasix) 20 mg PO DAILY [facility] Last Admin: 06/24/19 08:09 Dose: 20 mg Gabapentin (Neurontin) 600 mg PO TID [facility] Last Admin: 06/24/19 08:10 Dose: 600 mg Hydralazine HCl (Apresoline) 20 mg IVPUSH Q4H PRN PRN Reason: Hypertension Hydrochlorothiazide (Hydrochlorothiazide) 12.5 mg PO DAILY [facility] Last Admin: 06/24/19 08:10 Dose: 12.5 mg Promethazine HCl 6.25 mg/ (Sodium Chloride) 50.25 mls @ 100 mls/hr IV Q6H PRN PRN Reason: Nausea/Vomiting Magnesium Sulfate 2 gm/ Premix 50 mls @ 25 mls/hr IV NOW STA Stop: 06/24/19 10:24 Last Admin: 06/24/19 08:54 Dose: 25 mls/hr Ibuprofen (Motrin) 400 mg PO Q6H PRN PRN Reason: Pain (mild 1-3) Ketorolac Tromethamine (Toradol) 30 mg IV Q6H PRN PRN Reason: Pain (moderate 4-6) Last Admin: 06/24/19 02:26 Dose: 30 mg Lorazepam (Ativan) 2 mg IVPUSH Q4H PRN PRN Reason: Seizures Losartan Potassium (Cozaar) 100 mg PO DAILY [facility] Last Admin: 06/24/19 08:07 Dose: 100 mg Metoprolol Tartrate (Lopressor) 5 mg IVPUSH Q4H PRN PRN Reason: Tachycardia Miscellaneous Information (Remove Patch) 1 ea TRDERM Q24H [facility] Nicotine (Habitrol) 21 mg TRDERM Q24H [facility] Last Admin: 06/23/19 13:38 Dose: 21 mg Ondansetron HCl (Zofran) 4 mg IV Q6H PRN PRN Reason: Nausea/Vomiting Last Admin: 06/23/19 21:34 Dose: 4 mg Pantoprazole Sodium (Protonix) 40 mg PO Q12H [facility] Last Admin: 06/24/19 08:09 Dose: 40 mg Paroxetine HCl (Paxil) 40 mg PO BEDTIME [facility] Last Admin: 06/23/19 20:32 Dose: 40 mg Patient's Own Medication (Atrovent Nasal Timblin 0.06%) 0 each NASBOTH TID [facility] Potassium Chloride (Klor-Con 10) 10 meq PO DAILY [facility] Last Admin: 06/24/19 08:09 Dose: 10 meq Propranolol HCl (Inderal) 20 mg PO TID [facility] Last Admin: 06/24/19 08:09 Dose: 20 mg Senna/Docusate Sodium (Senna Plus) 1 tab PO BID PRN PRN Reason: Constipation Sodium Chloride (Saline Flush) 10 ml FLUSH ASDIRECTED PRN PRN Reason: Keep Vein Open Last Admin: 06/22/19 19:40 Dose: 10 ml Sumatriptan Succinate (Imitrex) 100 mg PO Q2H PRN PRN Reason: Headache Last Admin: 06/23/19 21:34 Dose: 100 mg Discontinued Medications Dextrose/Water (Dextrose 50% In Water) 50 ml IVPUSH ONETIME ONE Stop: 06/22/19 19:35 Last Admin: 06/22/19 19:38 Dose: 25 ml Dextrose/Water (Dextrose 50% In Water) Confirm Administered Dose 50 ml .ROUTE .STK-MED ONE Stop: 06/22/19 19:36 Last Admin: 06/22/19 19:41 Dose: Not Given Dextrose/Water (Dextrose 50% In Water) Confirm Administered Dose 50 ml .ROUTE .STK-MED ONE Stop: 06/22/19 20:31 Last Admin: 06/22/19 22:00 Dose: Not Given Dextrose/Water (Dextrose 50% In Water) 50 ml IVPUSH ASDIRECTED PRN PRN Reason: Hypoglycemia Last Admin: 06/23/19 07:45 Dose: 25 ml Dextrose/Water (Dextrose 50% In Water) 50 ml IVPUSH ASDIRECTED PRN PRN Reason: Hypoglycemia Divalproex Sodium (Divalproex Sodium) 500 mg PO BID [facility] Divalproex Sodium (Depakote) 500 mg PO ONETIME ONE Stop: 06/23/19 11:14 Last Admin: 06/23/19 12:32 Dose: 500 mg Divalproex Sodium (Depakote) 500 mg PO ONETIME ONE Stop: 06/23/19 21:01 Last Admin: 06/23/19 20:31 Dose: 500 mg Divalproex Sodium (Depakote) 500 mg PO BIDMEALS [facility] Divalproex Sodium (Divalproex Sodium) 1,000 mg PO BEDTIME [facility] Divalproex Sodium (Depakote Er) 1,000 mg PO BEDTIME [facility] Glucagon (Glucagen) 1 mg IVPUSH ONETIME ONE Stop: 06/22/19 20:45 Last Admin: 06/22/19 20:47 Dose: 1 mg Glycopyrrolate (Seebri Neohaler) 0 mcg IH BID [facility] Last Admin: 06/23/19 22:51 Dose: 1 cap Lactated Ringer's (Ringers, Lactated) Confirm Administered Dose 1,000 mls @ as directed .ROUTE .STK-MED ONE Stop: 06/22/19 19:31 Last Admin: 06/22/19 22:00 Dose: Not Given Lactated Ringer's (Ringers, Lactated) Confirm Administered Dose 1,000 mls @ as directed .ROUTE .STK-MED ONE Stop: 06/22/19 20:27 Last Admin: 06/22/19 20:52 Dose: Not Given Dextrose/Lactated Ringer's (Dextrose 5%-Lactated Ringers) 1,000 mls @ 999 mls/ hr IV ONETIME ONE Stop: 06/22/19 21:30 Last Admin: 06/22/19 20:39 Dose: 999 mls/hr Dextrose/Lactated Ringer's (Dextrose 5%-Lactated Ringers) Confirm Administered Dose 1,000 mls @ as directed .ROUTE .STK-MED ONE Stop: 06/22/19 20:31 Last Admin: 06/22/19 22:00 Dose: Not Given Lactated Ringer's (Ringers, Lactated) 1,000 mls @ 999 mls/hr IV .BOLUS ONE Stop: 06/22/19 21:51 Last Admin: 06/22/19 20:52 Dose: 999 mls/hr Sodium Chloride (Normal Saline) 1,000 mls @ 999 mls/hr IV ONETIME ONE Stop: 06/22/19 20:19 Last Admin: 06/22/19 20:45 Dose: 999 mls/hr Lactated Ringer's (Ringers, Lactated) 1,000 mls @ 999 mls/hr IV .BOLUS ONE Stop: 06/22/19 20:53 Last Admin: 06/22/19 19:53 Dose: 999 mls/hr Dextrose/Sodium Chloride (Dextrose 5%-Normal Saline) 1,000 mls @ 100 mls/hr IV ASDIRECTED [facility] Last Admin: 06/24/19 05:32 Dose: 100 mls/hr Insulin Human Lispro (Humalog) 0 unit SUBCUT QIDACANDBED [facility]; Protocol Last Admin: 06/22/19 22:39 Dose: Not Given Insulin Human Lispro (Humalog) 0 unit SUBCUT Q3H [facility]; Protocol Last Admin: 06/23/19 06:43 Dose: Not Given Losartan Potassium (Cozaar) 12.5 mg PO DAILY [facility] Naloxone HCl (Narcan) 2 mg IVPUSH ONETIME ONE Stop: 06/22/19 20:31 Last Admin: 06/22/19 20:39 Dose: 2 mg Naloxone HCl (Narcan) Confirm Administered Dose 2 mg .ROUTE .STK-MED ONE Stop: 06/22/19 20:28 Last Admin: 06/22/19 20:39 Dose: Not Given Pantoprazole Sodium (Protonix Iv) 40 mg IV Q12HR [facility] Last Admin: 06/23/19 08:00 Dose: 40 mg Paroxetine HCl (Paxil) 40 mg PO DAILY [facility] - Exam General: Alert, Oriented, Cooperative, No Acute Distress HEENT: Pupils Equal, Pupils Reactive, EOMI, Mucous Membr. Moist/[place] Neck: Supple, Trachea Midline, No JVD. No: Lymphadenopathy Lungs: Clear to Auscultation, Normal Respiratory Effort. No: Crackles, Rales, Rhonchi, Wheezing Cardiovascular: Regular Rate, Regular Rhythm, No Murmurs. No: Gallops, Rubs GI/Abdominal Exam: Normal Bowel Sounds, Soft, Non-Tender, No Organomegaly, No Distention (Female) Exam: Deferred Back Exam: Normal Inspection, Full Range of Motion Extremities: Normal Inspection, Normal Range of Motion, Non-Tender, No Pedal Edema. No: Joint Swelling Skin: Warm, Dry, Intact Neurological: No New Focal Deficit, Normal Speech, Normal Tone, Cranial Nerves Intact Psy/Mental Status: Alert, Normal Affect, Normal Mood - Problem List & Annotations (1) Altered mental status SNOMED Code(s): 585746983 Code(s): R41.82 - ALTERED MENTAL STATUS, UNSPECIFIED Status: Acute Current Visit: Yes Qualifiers: Altered mental status type: disorientation Qualified Code(s): R41.0 - Disorientation, unspecified (2) Hypoglycemia SNOMED Code(s): 765173675 Code(s): E16.2 - HYPOGLYCEMIA, UNSPECIFIED Status: Acute Current Visit: Yes (3) Polysubstance overdose SNOMED Code(s): 94664746 Code(s): T50.901A - POISONING BY UNSP DRUG/MEDS/BIOL SUBST, ACCIDENTAL, INIT Status: Acute Current Visit: Yes Qualifiers: Encounter type: initial encounter Injury intent: intentional self-harm Qualified Code(s): T50.902A - Poisoning by unspecified drugs, medicaments and biological substances, intentional self-harm, initial encounter (4) Anemia SNOMED Code(s): 073020806 Code(s): D64.9 - ANEMIA, UNSPECIFIED Status: Acute Current Visit: No Qualifiers: Anemia type: unspecified type Qualified Code(s): D64.9 - Anemia, unspecified - Problem List Review Problem List Initiated/Reviewed/Updated: Yes - Plan Plan:: Assessment: Acute: Polypharmacy * Obtunded upon ED arrival * Numerous sedative drugs-->will continue to hold sedating medications * Multiple prescribers * Trim medications * Hold home medications * Consult pharmacy Accidental overdose * Most likely secondary to polypharmacy * Consult psych to evaluate Hypoglycemia * Patient not eating well * Hx/o gastric bypass surgery * Monitor blood glucose--> still experiencing episodes of hypoglycemia * Regular meals--> encourage patient to eat Anxiety * Patient not on usual clonazepam regimen * Visually anxious and upset * Not sleeping well * Will start on usual regimen of clonazepam Chronic: Anemia, Seizures, migraines, hypertension, anemia, Type II DM, Anxiety , Depression, Osteoarthritis Plan: Monitor blood glucose, stabilize before discharge to be considered Start regular clonazepam regimen Hold home medications Consult pharmacy to trim medications Consult psychiatry to evaluate Regular meals Additional orders as above Code status: full code Estimated length of stay: 1-2 days Prognosis: good <Power Mckenzie T - Last Filed: 06/24/19 20:56> - Patient Data Vitals - Most Recent: Last Vital Signs Temp 36.6 C 06/24/19 16:00 Pulse 60 08/23/19 16:00 Resp 16 06/24/19 16:00 BP 137/90 06/24/19 16:00 Pulse Ox 98 06/24/19 16:00 I&O - Last 24 Hours: Intake & Output 06/24/19 06/24/19 06/24/19 06:59 14:59 22:59 Intake Total 8828 612 2227 Output Total 500 1400 Balance 688 442 120 Lab Results Last 24 Hours: Laboratory Results - last 24 hr 06/23/19 06/24/19 06/24/19 Range/Units 21:34 06:23 06:24 WBC 4.34 (3.98-10.04) K/mm3 RBC 3.18 L (3.98-5.22) M/mm3 Hgb 9.3 L (11.2-15.7) gm/L Hct 29.1 L (34.1-44.9) % MCV 91.5 (79.4-94.8) fl MCH 29.2 (25.6-32.2) pg MCHC 32.0 L (32.2-35.5) g/dl RDW Std Deviation 54.9 H (36.4-46.3) fL Plt Count 124 L (182-369) K/mm3 MPV 11.5 (9.4-12.3) fl Neut % (Auto) 41.7 (34.0-71.1) % Lymph % (Auto) 44.0 (19.3-51.7) % Stearns % (Auto) 10.8 (4.7-12.5) % Eos % (Auto) 2.8 (0.7-5.8) Baso % (Auto) 0.7 (0.1-1.2) % Neut # (Auto) 1.81 (1.56-6.13) K/mm3 Lymph # (Auto) 1.91 (1.18-3.74) K/mm3 Stearns # (Auto) 0.47 H (0.24-0.36) K/mm3 Eos # (Auto) 0.12 (0.04-0.36) K/mm3 Baso # (Auto) 0.03 (0.01-0.08) K/mm3 Sodium (136-145) mEq/L Potassium (3.5-5.1) mEq/L Chloride (98-107) mEq/L Carbon Dioxide (21-32) mEq/L Anion Gap (5-15) BUN (7-18) mg/dL Creatinine (0.55-1.02) mg/dL Est Cr Clr Drug Dosing mL/min Estimated GFR (MDRD) (>60) mL/min BUN/Creatinine Ratio (14-18) Glucose (74-106) mg/dL POC Glucose 117 H 65 L (70-105) mg/dL Calcium (8.5-10.1) mg/dL Magnesium (1.8-2.4) mg/dl 06/24/19 06/24/19 06/24/19 Range/Units 06:24 06:57 14:31 WBC (3.98-10.04) K/mm3 RBC (3.98-5.22) M/mm3 Hgb (11.2-15.7) gm/L Hct (34.1-44.9) % MCV (79.4-94.8) fl MCH (25.6-32.2) pg MCHC (32.2-35.5) g/dl RDW Std Deviation (36.4-46.3) fL Plt Count (182-369) K/mm3 MPV (9.4-12.3) fl Neut % (Auto) (34.0-71.1) % Lymph % (Auto) (19.3-51.7) % Stearns % (Auto) (4.7-12.5) % Eos % (Auto) (0.7-5.8) Baso % (Auto) (0.1-1.2) % Neut # (Auto) (1.56-6.13) K/mm3 Lymph # (Auto) (1.18-3.74) K/mm3 Stearns # (Auto) (0.24-0.36) K/mm3 Eos # (Auto) (0.04-0.36) K/mm3 Baso # (Auto) (0.01-0.08) K/mm3 Sodium 133 L (136-145) mEq/L Potassium 4.4 (3.5-5.1) mEq/L Chloride 100 (98-107) mEq/L Carbon Dioxide 27 (21-32) mEq/L Anion Gap 10.4 (5-15) BUN 18 (7-18) mg/dL Creatinine 0.9 (0.55-1.02) mg/dL Est Cr Clr Drug Dosing 64.56 mL/min Estimated GFR (MDRD) > 60 (>60) mL/min BUN/Creatinine Ratio 20.0 H (14-18) Glucose 79 (74-106) mg/dL POC Glucose 129 H 86 (70-105) mg/dL Calcium 8.1 L (8.5-10.1) mg/dL Magnesium 1.6 L (1.8-2.4) mg/dl 06/24/19 06/24/19 Range/Units 17:57 20:13 WBC (3.98-10.04) K/mm3 RBC (3.98-5.22) M/mm3 Hgb (11.2-15.7) gm/L Hct (34.1-44.9) % MCV (79.4-94.8) fl MCH (25.6-32.2) pg MCHC (32.2-35.5) g/dl RDW Std Deviation (36.4-46.3) fL Plt Count (182-369) K/mm3 MPV (9.4-12.3) fl Neut % (Auto) (34.0-71.1) % Lymph % (Auto) (19.3-51.7) % Stearns % (Auto) (4.7-12.5) % Eos % (Auto) (0.7-5.8) Baso % (Auto) (0.1-1.2) % Neut # (Auto) (1.56-6.13) K/mm3 Lymph # (Auto) (1.18-3.74) K/mm3 Stearns # (Auto) (0.24-0.36) K/mm3 Eos # (Auto) (0.04-0.36) K/mm3 Baso # (Auto) (0.01-0.08) K/mm3 Sodium (136-145) mEq/L Potassium (3.5-5.1) mEq/L Chloride (98-107) mEq/L Carbon Dioxide (21-32) mEq/L Anion Gap (5-15) BUN (7-18) mg/dL Creatinine (0.55-1.02) mg/dL Est Cr Clr Drug Dosing mL/min Estimated GFR (MDRD) (>60) mL/min BUN/Creatinine Ratio (14-18) Glucose (74-106) mg/dL POC Glucose 81 78 (70-105) mg/dL Calcium (8.5-10.1) mg/dL Magnesium (1.8-2.4) mg/dl Med Orders - Current: Current Medications Albuterol/Ipratropium (Duoneb 3.0-0.5 Mg/3 Ml) 3 ml NEB Q4H PRN PRN Reason: Shortness Of Breath/wheezing Baclofen (Lioresal) 10 mg PO TID PRN PRN Reason: Muscle Spasm Bisacodyl (Dulcolax) 5 mg PO DAILY PRN PRN Reason: Constipation Clonazepam (Klonopin) 1 mg PO TID [facility] Last Admin: 06/24/19 20:07 Dose: 1 mg Clonidine HCl (Catapres) 0.1 mg PO BEDTIME PRN PRN Reason: Sleep Dextrose/Water (Dextrose 50% In Water) 50 ml IV ASDIRECTED PRN PRN Reason: Hypoglycemia Last Admin: 06/24/19 06:36 Dose: 25 ml Divalproex Sodium (Depakote Er) 1,000 mg PO BEDTIME [facility] Last Admin: 06/24/19 20:07 Dose: 1,000 mg Docusate Sodium (Colace) 100 mg PO BID PRN PRN Reason: Constipation Fluticasone Propionate (Flonase) 0 gm NASBOTH DAILY [facility] Last Admin: 06/24/19 10:13 Dose: Not Given Furosemide (Lasix) 20 mg PO DAILY [facility] Last Admin: 06/24/19 08:09 Dose: 20 mg Gabapentin (Neurontin) 600 mg PO TID [facility] Last Admin: 06/24/19 20:07 Dose: 600 mg Hydralazine HCl (Apresoline) 20 mg IVPUSH Q4H PRN PRN Reason: Hypertension Hydrochlorothiazide (Hydrochlorothiazide) 12.5 mg PO DAILY [facility] Last Admin: 06/24/19 08:10 Dose: 12.5 mg Promethazine HCl 6.25 mg/ (Sodium Chloride) 50.25 mls @ 100 mls/hr IV Q6H PRN PRN Reason: Nausea/Vomiting Ibuprofen (Motrin) 400 mg PO Q6H PRN PRN Reason: Pain (mild 1-3) Ketorolac Tromethamine (Toradol) 30 mg IV Q6H PRN PRN Reason: Pain (moderate 4-6) Last Admin: 06/24/19 18:42 Dose: 30 mg Lorazepam (Ativan) 2 mg IVPUSH Q4H PRN PRN Reason: Seizures Losartan Potassium (Cozaar) 100 mg PO DAILY [facility] Last Admin: 06/24/19 08:07 Dose: 100 mg Metoprolol Tartrate (Lopressor) 5 mg IVPUSH Q4H PRN PRN Reason: Tachycardia Miscellaneous Information (Remove Patch) 1 ea TRDERM Q24H [facility] Last Admin: 06/24/19 14:35 Dose: 1 ea Nicotine (Habitrol) 21 mg TRDERM Q24H [facility] Last Admin: 06/24/19 14:33 Dose: 21 mg Non-Formulary Medication (Chlorthalidone) 25 mg PO DAILY [facility] Ondansetron HCl (Zofran) 4 mg IV Q6H PRN PRN Reason: Nausea/Vomiting Last Admin: 06/24/19 10:14 Dose: 4 mg Pantoprazole Sodium (Protonix) 40 mg PO Q12H [facility] Last Admin: 06/24/19 20:08 Dose: 40 mg Paroxetine HCl (Paxil) 40 mg PO BEDTIME [facility] Last Admin: 06/24/19 20:07 Dose: 40 mg Atrovent Nasal Timblin (0.03% Ptom) 0 each NASBOTH TID [facility] Last Admin: 06/24/19 20:09 Dose: 2 each Potassium Chloride (Klor-Con 10) 10 meq PO DAILY [facility] Last Admin: 06/24/19 08:09 Dose: 10 meq Propranolol HCl (Inderal) 20 mg PO TID [facility] Last Admin: 06/24/19 20:06 Dose: 20 mg Senna/Docusate Sodium (Senna Plus) 1 tab PO BID PRN PRN Reason: Constipation Sodium Chloride (Saline Flush) 10 ml FLUSH ASDIRECTED PRN PRN Reason: Keep Vein Open Last Admin: 06/22/19 19:40 Dose: 10 ml Sumatriptan Succinate (Imitrex) 100 mg PO Q2H PRN PRN Reason: Headache Last Admin: 06/24/19 10:15 Dose: 100 mg Trazodone HCl (Trazodone) 100 mg PO BEDTIME [facility] Last Admin: 06/24/19 20:08 Dose: 100 mg Discontinued Medications Clonazepam (Klonopin) 0.5 mg PO BID [facility] Last Admin: 06/24/19 08:08 Dose: 0.5 mg Dextrose/Water (Dextrose 50% In Water) 50 ml IVPUSH ONETIME ONE Stop: 06/22/19 19:35 Last Admin: 06/22/19 19:38 Dose: 25 ml Dextrose/Water (Dextrose 50% In Water) Confirm Administered Dose 50 ml .ROUTE .STK-MED ONE Stop: 06/22/19 19:36 Last Admin: 06/22/19 19:41 Dose: Not Given Dextrose/Water (Dextrose 50% In Water) Confirm Administered Dose 50 ml .ROUTE .STK-MED ONE Stop: 06/22/19 20:31 Last Admin: 06/22/19 22:00 Dose: Not Given Dextrose/Water (Dextrose 50% In Water) 50 ml IVPUSH ASDIRECTED PRN PRN Reason: Hypoglycemia Last Admin: 06/23/19 07:45 Dose: 25 ml Dextrose/Water (Dextrose 50% In Water) 50 ml IVPUSH ASDIRECTED PRN PRN Reason: Hypoglycemia Divalproex Sodium (Divalproex Sodium) 500 mg PO BID [facility] Divalproex Sodium (Depakote) 500 mg PO ONETIME ONE Stop: 06/23/19 11:14 Last Admin: 06/23/19 12:32 Dose: 500 mg Divalproex Sodium (Depakote) 500 mg PO ONETIME ONE Stop: 06/23/19 21:01 Last Admin: 06/23/19 20:31 Dose: 500 mg Divalproex Sodium (Depakote) 500 mg PO BIDMEALS [facility] Divalproex Sodium (Divalproex Sodium) 1,000 mg PO BEDTIME [facility] Divalproex Sodium (Depakote Er) 1,000 mg PO BEDTIME [facility] Glucagon (Glucagen) 1 mg IVPUSH ONETIME ONE Stop: 06/22/19 20:45 Last Admin: 06/22/19 20:47 Dose: 1 mg Glycopyrrolate (Seebri Neohaler) 0 mcg IH BID [facility] Last Admin: 06/23/19 22:51 Dose: 1 cap Lactated Ringer's (Ringers, Lactated) Confirm Administered Dose 1,000 mls @ as directed .ROUTE .STK-MED ONE Stop: 06/22/19 19:31 Last Admin: 06/22/19 22:00 Dose: Not Given Lactated Ringer's (Ringers, Lactated) Confirm Administered Dose 1,000 mls @ as directed .ROUTE .K-MED ONE Stop: 06/22/19 20:27 Last Admin: 06/22/19 20:52 Dose: Not Given Dextrose/Lactated Ringer's (Dextrose 5%-Lactated Ringers) 1,000 mls @ 999 mls/ hr IV ONETIME ONE Stop: 06/22/19 21:30 Last Admin: 06/22/19 20:39 Dose: 999 mls/hr Dextrose/Lactated Ringer's (Dextrose 5%-Lactated Ringers) Confirm Administered Dose 1,000 mls @ as directed .ROUTE .[facility] ONE Stop: 06/22/19 20:31 Last Admin: 06/22/19 22:00 Dose: Not Given Lactated Ringer's (Ringers, Lactated) 1,000 mls @ 999 mls/hr IV .BOLUS ONE Stop: 06/22/19 21:51 Last Admin: 06/22/19 20:52 Dose: 999 mls/hr Sodium Chloride (Normal Saline) 1,000 mls @ 999 mls/hr IV ONETIME ONE Stop: 06/22/19 20:19 Last Admin: 06/22/19 20:45 Dose: 999 mls/hr Lactated Ringer's (Ringers, Lactated) 1,000 mls @ 999 mls/hr IV .BOLUS ONE Stop: 06/22/19 20:53 Last Admin: 06/22/19 19:53 Dose: 999 mls/hr Dextrose/Sodium Chloride (Dextrose 5%-Normal Saline) 1,000 mls @ 100 mls/hr IV ASDIRECTED [facility] Last Admin: 06/24/19 05:32 Dose: 100 mls/hr Magnesium Sulfate 2 gm/ Premix 50 mls @ 25 mls/hr IV NOW STA Stop: 06/24/19 10:24 Last Admin: 06/24/19 08:54 Dose: 25 mls/hr Insulin Human Lispro (Humalog) 0 unit SUBCUT QIDACANDBED [facility]; Protocol Last Admin: 06/22/19 22:39 Dose: Not Given Insulin Human Lispro (Humalog) 0 unit SUBCUT Q3H [facility]; Protocol Last Admin: 06/23/19 06:43 Dose: Not Given Losartan Potassium (Cozaar) 12.5 mg PO DAILY [facility] Naloxone HCl (Narcan) 2 mg IVPUSH ONETIME ONE Stop: 06/22/19 20:31 Last Admin: 06/22/19 20:39 Dose: 2 mg Naloxone HCl (Narcan) Confirm Administered Dose 2 mg .ROUTE .STK-MED ONE Stop: 06/22/19 20:28 Last Admin: 06/22/19 20:39 Dose: Not Given Pantoprazole Sodium (Protonix Iv) 40 mg IV Q12HR JODI Last Admin: 06/23/19 08:00 Dose: 40 mg Paroxetine HCl (Paxil) 40 mg PO DAILY JODI - Problem List Review Problem List Initiated/Reviewed/Updated: Yes - My Orders Last 24 Hours: My Active Orders 06/23/19 21:00 Pantoprazole [ProTONIX] 40 mg PO Q12H 06/24/19 09:00 Fluticasone Propionate [Flonase] 0 gm NASBOTH DAILY Furosemide [Lasix] 20 mg PO DAILY Losartan [Cozaar] 100 mg PO DAILY Patient's Own Medication [Ptom] 0 each NASBOTH TID Potassium Chloride [Klor-Con 10] 10 meq PO DAILY hydroCHLOROthiazide 12.5 mg PO DAILY 06/24/19 11:50 Admission Status [Patient Status] [ADT] Routine 06/24/19 13:00 Remove Patch 1 ea TRDERM Q24H 06/24/19 15:00 ClonazePAM [KlonoPIN] 1 mg PO TID 06/24/19 21:00 traZODone 100 mg PO BEDTIME 06/25/19 05:11 BASIC METABOLIC PANEL,BMP [CHEM] AM CBC WITH AUTO DIFF [HEME] AM MAGNESIUM [CHEM] AM 06/25/19 09:00 Chlorthalidone 25 mg PO DAILY 06/26/19 05:11 BASIC METABOLIC PANEL,BMP [CHEM] AM CBC WITH AUTO DIFF [HEME] AM MAGNESIUM [CHEM] AM 06/27/19 05:11 BASIC METABOLIC PANEL,BMP [CHEM] AM CBC WITH AUTO DIFF [HEME] AM MAGNESIUM [CHEM] AM - Plan Plan:: Assessment: Acute: Polypharmacy * Obtunded upon ED arrival; no back to baseline * Numerous sedative drugs * Multiple prescribers * Trim medications * Slowly resume hold home medications * Consult pharmacy to educate polypharmacy Resolved: S/p Accidental overdose * Most likely secondary to polypharmacy * Consult psych to evaluate S/p Hypoglycemia * Patient not eating well * Hx/o gastric bypass surgery * Still had episode of hypoglycemia even with meals so she was put on D5 intravenous fluids * No issues overnight * Continue to monitor blood glucose S/p Hypokalemia - K 3.2--> 4.4 - 2/2 poor intake - Replete and monitor S/p Acute Kidney Injury - BUN is 36; Cr of 1.4; GFR of 39--> no back at baseline - Baseline GFR is > 60 - 2/2 Volume Depletion/dehydration from poor oral intake - Currently receiving intravenous fluids Chronic: Anemia, Seizures, migraines, hypertension, anemia, Type II DM, Anxiety , Depression, Osteoarthritis Plan: She is clinically and hemodynamically stable Consulted psychiatry: recommended Depakote 1000 mg po QHS; Klonopin 1 mg po TID , Increased Paxil from 20 to 40 mg po QHS Monitor blood glucose Changed Klonopin to 1 mg po TID today Regular meals Code status: full code Possible discharge in AM Additional orders as above Updated about her clinical progress and possible discharge in AM The patient was seen and examined in concert with the medical student. The admission assessment and plans were discussed and agreed upon with me. Any changes or recommendations will be based on the patient's course.
[2019-06-24] MEDS: Fluticasone Propionate Nasal Spray 16 GM Bottle NASBOTH SCH (10:13)
[2019-06-24] MEDS: Ondansetron 4 MG/2 ML SDV IV PRN (10:14)
[2019-06-24] MEDS: SUMAtriptan 50 MG Tab PO PRN (10:15)
[2019-06-24] MEDS: ATROVENT 0.03% NASBOTH SCH ×3 (10:24→20:09)
[2019-06-24] MEDS: Nicotine 21 MG/24 Hr Patch TRDERM SCH (14:33)
[2019-06-24] MEDS: PARoxetine 20 MG Tab PO SCH (20:07)
[2019-06-24] MEDS ORDERED: Divalproex Sodium Delayed-Release 250 MG Tab.CR PO SCH (21:00)
[2019-06-24] MEDS ORDERED: traZODone 50 MG Tab PO SCH (21:00)
[2019-06-24] MEDS ORDERED: Divalproex Sodium 250 MG Tab.ER PO SCH ×2 (21:00)
[2019-06-25] MEDS: Ketorolac 30 MG/ML SDV IV PRN (02:45)
[2019-06-25] MEDS: ClonazePAM 1 MG Tab PO SCH (08:11)
[2019-06-25] MEDS: Losartan 100 MG Tab PO SCH (08:11)
[2019-06-25] MEDS: Hydrochlorothiazide 12.5 MG Cap PO SCH (08:11)
[2019-06-25] MEDS: Potassium Chloride 10 MEQ Tab.ER PO SCH (08:11)
[2019-06-25] MEDS: Propranolol 20 MG Tab PO SCH (08:11)
[2019-06-25] MEDS: Pantoprazole 40 MG Tab.CR PO SCH (08:13)
[2019-06-25] MEDS: Furosemide 20 MG Tab PO SCH (08:13)
[2019-06-25] MEDS: Gabapentin 600 MG Tab PO SCH (08:13)
[2019-06-25 08:14] VITALS: BP 127/82
[2019-06-25] MEDS: ATROVENT 0.03% NASBOTH SCH (08:16)
[2019-06-25] MEDS: Fluticasone Propionate Nasal Spray 16 GM Bottle NASBOTH SCH (10:44)
--- NOTE | 2019-06-25 11:08 | PCM.DCSUM1 ---
Discharge Summary - Hospital Course Brief History: 59 year old female with history of hypertension, PE, GERD, PUD, Anxiety, depression, migraines, Type II DM, iron deficiency anemia, seizures and gastric bypass surgery brought in by EMS for hypoglycemia, altered mental status. Her or significant other came home from running errands and found her unreponsive. She was pale, diaphoretic unresponsive upon EMS arrival , glucose only in the low 30's. On arrival to ED glucose 108 but still pale, extremely drowsy, opens eyes but not answering questions. Still hypotensive with BP of 80/53 on arrival to ED. Also bradycardic with initial heart rate 51. Of note on multiple meds including clonazepam, clonidine depakote, gabapentin, paxil, and other meds as well including inderal 20 mg tid, see list for details. When asked about possible medication overdose her states that he "controls her meds" does not understand how that may have happened. Patient does not recall what happened before she lost consciousness. She remembers feeling faint, her legs feeling as if they would give out, and then she stumbled and fell. Her initial workup in the ED shows Hgb= 10, potassium= 3.2, BUN= 36, Creatinine= 1.4, glucose 106. Diagnosis: Stroke: No Modified [place] Scale: No Symptoms at All Modified [place] Scale Score: 0 - Discharge Data Discharge Date: 06/25/19 Discharge Disposition: Home, Self-Care 01 Condition: Good - Discharge Diagnosis/Problem(s) (1) Polypharmacy SNOMED Code(s): 202548011 ICD Code: Z79.899 - OTHER FORESTRY AIDE (CURRENT) DRUG THERAPY Status: Chronic (2) Altered mental status SNOMED Code(s): 088848624 ICD Code: R41.82 - ALTERED MENTAL STATUS, UNSPECIFIED Status: Resolved Qualifiers: Altered mental status type: disorientation Qualified Code(s): R41.0 - Disorientation, unspecified (3) Hypoglycemia SNOMED Code(s): 197090967 ICD Code: E16.2 - HYPOGLYCEMIA, UNSPECIFIED Status: Resolved (4) Polysubstance overdose SNOMED Code(s): 77883222 ICD Code: T50.901A - POISONING BY UNSP DRUG/MEDS/BIOL SUBST, ACCIDENTAL, INIT Status: Chronic Qualifiers: Encounter type: initial encounter Injury intent: intentional self-harm Qualified Code(s): T50.902A - Poisoning by unspecified drugs, medicaments and biological substances, intentional self-harm, initial encounter (5) Nicotine-related disorder SNOMED Code(s): 15117540 ICD Code: F17.209 - NICOTINE DEPENDENCE, UNSP, W UNSP NICOTINE-INDUCED DISORDERS Status: Chronic Problem Details: - Patient already on Nicotine Patch for smoking cessation - Patient Summary/Data Operative Procedure(s) Performed: None Complications: None Consults: Consultations 06/22/19 21:48 Consult to Case Management/[employer] [CONS] Routine Consult to Physician [CONS] Routine Consult to Spiritual Care [CONS] Routine OT Evaluation and Treatment [CONS] Routine PT Evaluation and Treatment [CONS] Routine Labs Pending at D/C: None Recommended Follow-up Testing/Procedures: Repeat labs on follow up appointment Planned Operative Procedure(s) after DC: None - Patient Instructions Diet: Usual Diet as Tolerated Activity: As Tolerated Driving: Do Not Drive Showering/Bathing: May Shower Wound/Incision Care: Keep Operative Site/Wound Site Clean and Dry Notify Provider of: Fever, Increased Pain, Swelling and Redness, Drainage, Nausea and/or Vomiting Other/Special Instructions: - Please take all new medications as directed. - Resume routine home medications and activity as tolerated. - Call or follow up with your doctor for any concerns or issues after discharge. - Recommend repeat CBC, BMP and Mg through your family doctor's office on follow up appointment. - Recommend trimming down all your routine home medications through your family doctor on follow up appointment. - Follow up with your doctor in 1 week with repeat labs. - Come back or seek immediate care should your symptoms persist or get worse - Discharge Plan *PRESCRIPTION DRUG MONITORING PROGRAM REVIEWED*: Not Applicable *COPY OF PRESCRIPTION DRUG MONITORING REPORT IN PATIENT ROSA: Not Applicable Home Medications: Home Meds Fluticasone Propionate [Flonase Allergy Relief] 2 spray NASBOTH DAILY 06/22/19 [ History] Furosemide 20 mg PO DAILY 06/22/19 [History] Gabapentin [Neurontin] 600 mg PO TID 06/22/19 [History] Ipratropium [Atrovent 0.06% Nasal [place]] 2 sprays NASBOTH TID 06/22/19 [History] Losartan/Hydrochlorothiazide [Losartan-HCTZ 100-12.5 MG] 1 tab PO DAILY [History] PARoxetine HCl [Paxil] 40 mg PO DAILY 06/22/19 [History] Pantoprazole Sodium [Protonix] 40 mg PO DAILY 06/22/19 [History] Potassium Chloride [K-Tab ER] 20 meq PO DAILY 06/22/19 [History] Propranolol [Inderal] 20 mg PO TID 06/22/19 [History] cloNIDine [Catapres] 0.1 mg PO BEDTIME PRN 06/22/19 [History] clonazePAM [Klonopin] 1 mg PO TID 06/22/19 [History] Chlorthalidone 25 mg PO DAILY 06/24/19 [History] traZODone HCl [Trazodone HCl] 100 mg PO BEDTIME 06/24/19 [History] Divalproex Sodium [Depakote ER] 500 mg PO BID #0 06/25/19 [Rx] Oxygen Therapy Mode: Room Air Patient Handouts: Accidental Overdose, Confusion, Steps to Quit Smoking Referrals: Clifford Werner MD [Physician] - - Discharge Summary/Plan Comment DC Time >30 min.: No Discharge Summary/Plan Comment: Discharge to Home - General Info Date of Service: 06/25/19 Admission Dx/Problem (Free Text: Admission Diagnosis/Problem Admission Diagnosis/Problem Drug overdose Subjective Update: Follow Up Functional Status: Reports: Pain Controlled, Tolerating Diet, Ambulating, Urinating. Denies: New Symptoms - Review of Systems General: Reports: No Symptoms HEENT: Reports: No Symptoms Pulmonary: Denies: Shortness of Breath, Sputum Cardiovascular: Denies: Chest Pain, Orthopnea, PND, Lightheadedness Gastrointestinal: Denies: Abdominal Pain, Nausea, Vomiting Genitourinary: Reports: No Symptoms Musculoskeletal: Reports: No Symptoms Skin: Denies: Cyanosis, Diaphoresis, Dryness (+), Other Neurological: Denies: Confusion, Headache, Numbness, Paresthesia, Seizure, Syncope, Trouble Speaking, Weakness, Gait Disturbance Psychiatric: Denies: Depression, Anxiety, Agitation, Hallucinations, Suicidal Ideation Systems Review Comment: No significant overnight issues. She rested well and feels pretty. She denies being suicidal, depressed or homocidal. She is ready to go home. Her blood glucose is within normal limits. No report of acute bleeding or hematemesis. - Patient Data Vitals - Most Recent: Last Vital Signs Temp 36.7 C 06/25/19 08:19 Pulse 61 06/25/19 08:19 Resp 14 06/25/19 08:19 BP 127/82 06/25/19 08:19 Pulse Ox 100 06/25/19 08:19 Weight - Most Recent: 73.119 kg I&O - Last 24 hours: Intake & Output 06/24/19 06/25/19 06/25/19 22:59 06:59 14:59 Intake Total 1520 480 540 Output Total 1400 Balance 120 480 540 Lab Results - Last 24 hrs: Laboratory Results - last 24 hr 06/24/19 06/24/19 06/24/19 Range/Units 14:31 17:57 20:13 WBC (3.98-10.04) K/mm3 RBC (3.98-5.22) M/mm3 Hgb (11.2-15.7) gm/L Hct (34.1-44.9) % MCV (79.4-94.8) fl MCH (25.6-32.2) pg MCHC (32.2-35.5) g/dl RDW Std Deviation (36.4-46.3) fL Plt Count (182-369) K/mm3 MPV (9.4-12.3) fl Neut % (Auto) (34.0-71.1) % Lymph % (Auto) (19.3-51.7) % Dukes % (Auto) (4.7-12.5) % Eos % (Auto) (0.7-5.8) Baso % (Auto) (0.1-1.2) % Neut # (Auto) (1.56-6.13) K/mm3 Lymph # (Auto) (1.18-3.74) K/mm3 Dukes # (Auto) (0.24-0.36) K/mm3 Eos # (Auto) (0.04-0.36) K/mm3 Baso # (Auto) (0.01-0.08) K/mm3 Sodium (136-145) mEq/L Potassium (3.5-5.1) mEq/L Chloride (98-107) mEq/L Carbon Dioxide (21-32) mEq/L Anion Gap (5-15) BUN (7-18) mg/dL Creatinine (0.55-1.02) mg/dL Est Cr Clr Drug Dosing mL/min Estimated GFR (MDRD) (>60) mL/min BUN/Creatinine Ratio (14-18) Glucose (74-106) mg/dL POC Glucose 86 81 78 (70-105) mg/dL Calcium (8.5-10.1) mg/dL Magnesium (1.8-2.4) mg/dl 06/25/19 06/25/19 06/25/19 Range/Units 04:34 04:34 08:07 WBC 4.50 (3.98-10.04) K/mm3 RBC 2.90 L (3.98-5.22) M/mm3 Hgb 8.3 L (11.2-15.7) gm/L Hct 26.8 L (34.1-44.9) % MCV 92.4 (79.4-94.8) fl MCH 28.6 (25.6-32.2) pg MCHC 31.0 L (32.2-35.5) g/dl RDW Std Deviation 54.1 H (36.4-46.3) fL Plt Count 117 L (182-369) K/mm3 MPV 11.6 (9.4-12.3) fl Neut % (Auto) 34.4 (34.0-71.1) % Lymph % (Auto) 49.1 (19.3-51.7) % Dukes % (Auto) 11.8 (4.7-12.5) % Eos % (Auto) 3.8 (0.7-5.8) Baso % (Auto) 0.9 (0.1-1.2) % Neut # (Auto) 1.55 L (1.56-6.13) K/mm3 Lymph # (Auto) 2.21 (1.18-3.74) K/mm3 Dukes # (Auto) 0.53 H (0.24-0.36) K/mm3 Eos # (Auto) 0.17 (0.04-0.36) K/mm3 Baso # (Auto) 0.04 (0.01-0.08) K/mm3 Sodium 133 L (136-145) mEq/L Potassium 4.0 (3.5-5.1) mEq/L Chloride 99 (98-107) mEq/L Carbon Dioxide 28 (21-32) mEq/L Anion Gap 10.0 (5-15) BUN 24 H (7-18) mg/dL Creatinine 0.9 (0.55-1.02) mg/dL Est Cr Clr Drug Dosing 64.56 mL/min Estimated GFR (MDRD) > 60 (>60) mL/min BUN/Creatinine Ratio 26.7 H (14-18) Glucose 88 (74-106) mg/dL POC Glucose 69 L (70-105) mg/dL Calcium 8.3 L (8.5-10.1) mg/dL Magnesium 1.9 (1.8-2.4) mg/dl Med Orders - Current: Current Medications Albuterol/Ipratropium (Duoneb 3.0-0.5 Mg/3 Ml) 3 ml NEB Q4H PRN PRN Reason: Shortness Of Breath/wheezing Baclofen (Lioresal) 10 mg PO TID PRN PRN Reason: Muscle Spasm Bisacodyl (Dulcolax) 5 mg PO DAILY PRN PRN Reason: Constipation Clonazepam (Klonopin) 1 mg PO TID [facility] Last Admin: 06/25/19 08:11 Dose: 1 mg Clonidine HCl (Catapres) 0.1 mg PO BEDTIME PRN PRN Reason: Sleep Dextrose/Water (Dextrose 50% In Water) 50 ml IV ASDIRECTED PRN PRN Reason: Hypoglycemia Last Admin: 06/24/19 06:36 Dose: 25 ml Divalproex Sodium (Depakote Er) 1,000 mg PO BEDTIME [facility] Last Admin: 06/24/19 20:07 Dose: 1,000 mg Docusate Sodium (Colace) 100 mg PO BID PRN PRN Reason: Constipation Fluticasone Propionate (Flonase) 0 gm NASBOTH DAILY [facility] Last Admin: 06/25/19 10:44 Dose: Not Given Furosemide (Lasix) 20 mg PO DAILY [facility] Last Admin: 06/25/19 08:13 Dose: 20 mg Gabapentin (Neurontin) 600 mg PO TID [facility] Last Admin: 06/25/19 08:13 Dose: 600 mg Hydralazine HCl (Apresoline) 20 mg IVPUSH Q4H PRN PRN Reason: Hypertension Hydrochlorothiazide (Hydrochlorothiazide) 12.5 mg PO DAILY [facility] Last Admin: 06/25/19 08:11 Dose: 12.5 mg Promethazine HCl 6.25 mg/ (Sodium Chloride) 50.25 mls @ 100 mls/hr IV Q6H PRN PRN Reason: Nausea/Vomiting Ibuprofen (Motrin) 400 mg PO Q6H PRN PRN Reason: Pain (mild 1-3) Ketorolac Tromethamine (Toradol) 30 mg IV Q6H PRN PRN Reason: Pain (moderate 4-6) Last Admin: 06/25/19 02:45 Dose: 30 mg Lorazepam (Ativan) 2 mg IVPUSH Q4H PRN PRN Reason: Seizures Losartan Potassium (Cozaar) 100 mg PO DAILY [facility] Last Admin: 06/25/19 08:11 Dose: 100 mg Metoprolol Tartrate (Lopressor) 5 mg IVPUSH Q4H PRN PRN Reason: Tachycardia Miscellaneous Information (Remove Patch) 1 ea TRDERM Q24H [facility] Last Admin: 06/24/19 14:35 Dose: 1 ea Nicotine (Habitrol) 21 mg TRDERM Q24H [facility] Last Admin: 06/24/19 14:33 Dose: 21 mg Ondansetron HCl (Zofran) 4 mg IV Q6H PRN PRN Reason: Nausea/Vomiting Last Admin: 06/24/19 10:14 Dose: 4 mg Pantoprazole Sodium (Protonix) 40 mg PO Q12H [facility] Last Admin: 06/25/19 08:13 Dose: 40 mg Paroxetine HCl (Paxil) 40 mg PO BEDTIME [facility] Last Admin: 06/24/19 20:07 Dose: 40 mg Atrovent Nasal [place] (0.03% Ptom) 0 each NASBOTH TID [facility] Last Admin: 06/25/19 08:16 Dose: 2 each Chlorthalidone 25 Mg 0 each PO DAILY [facility] Last Admin: 06/25/19 10:43 Dose: Not Given Potassium Chloride (Klor-Con 10) 10 meq PO DAILY [facility] Last Admin: 06/25/19 08:11 Dose: 10 meq Propranolol HCl (Inderal) 20 mg PO TID [facility] Last Admin: 06/25/19 08:11 Dose: 20 mg Senna/Docusate Sodium (Senna Plus) 1 tab PO BID PRN PRN Reason: Constipation Sodium Chloride (Saline Flush) 10 ml FLUSH ASDIRECTED PRN PRN Reason: Keep Vein Open Last Admin: 06/22/19 19:40 Dose: 10 ml Sumatriptan Succinate (Imitrex) 100 mg PO Q2H PRN PRN Reason: Headache Last Admin: 06/24/19 10:15 Dose: 100 mg Trazodone HCl (Trazodone) 100 mg PO BEDTIME [facility] Last Admin: 06/24/19 20:08 Dose: 100 mg Discontinued Medications Clonazepam (Klonopin) 0.5 mg PO BID [facility] Last Admin: 06/24/19 08:08 Dose: 0.5 mg Dextrose/Water (Dextrose 50% In Water) 50 ml IVPUSH ONETIME ONE Stop: 06/22/19 19:35 Last Admin: 06/22/19 19:38 Dose: 25 ml Dextrose/Water (Dextrose 50% In Water) Confirm Administered Dose 50 ml .ROUTE .STK-MED ONE Stop: 06/22/19 19:36 Last Admin: 06/22/19 19:41 Dose: Not Given Dextrose/Water (Dextrose 50% In Water) Confirm Administered Dose 50 ml .ROUTE .STK-MED ONE Stop: 06/22/19 20:31 Last Admin: 06/22/19 22:00 Dose: Not Given Dextrose/Water (Dextrose 50% In Water) 50 ml IVPUSH ASDIRECTED PRN PRN Reason: Hypoglycemia Last Admin: 06/23/19 07:45 Dose: 25 ml Dextrose/Water (Dextrose 50% In Water) 50 ml IVPUSH ASDIRECTED PRN PRN Reason: Hypoglycemia Divalproex Sodium (Divalproex Sodium) 500 mg PO BID JODI Divalproex Sodium (Depakote) 500 mg PO ONETIME ONE Stop: 06/23/19 11:14 Last Admin: 06/23/19 12:32 Dose: 500 mg Divalproex Sodium (Depakote) 500 mg PO ONETIME ONE Stop: 06/23/19 21:01 Last Admin: 06/23/19 20:31 Dose: 500 mg Divalproex Sodium (Depakote) 500 mg PO BIDMEALS JODI Divalproex Sodium (Divalproex Sodium) 1,000 mg PO BEDTIME JODI Divalproex Sodium (Depakote Er) 1,000 mg PO BEDTIME [facility] Glucagon (Glucagen) 1 mg IVPUSH ONETIME ONE Stop: 06/22/19 20:45 Last Admin: 06/22/19 20:47 Dose: 1 mg Glycopyrrolate (Seebri Neohaler) 0 mcg IH BID [facility] Last Admin: 06/23/19 22:51 Dose: 1 cap Lactated Ringer's (Ringers, Lactated) Confirm Administered Dose 1,000 mls @ as directed .ROUTE .STK-MED ONE Stop: 06/22/19 19:31 Last Admin: 06/22/19 22:00 Dose: Not Given Lactated Ringer's (Ringers, Lactated) Confirm Administered Dose 1,000 mls @ as directed .ROUTE .STK-MED ONE Stop: 06/22/19 20:27 Last Admin: 06/22/19 20:52 Dose: Not Given Dextrose/Lactated Ringer's (Dextrose 5%-Lactated Ringers) 1,000 mls @ 999 mls/ hr IV ONETIME ONE Stop: 06/22/19 21:30 Last Admin: 06/22/19 20:39 Dose: 999 mls/hr Dextrose/Lactated Ringer's (Dextrose 5%-Lactated Ringers) Confirm Administered Dose 1,000 mls @ as directed .ROUTE .STK-MED ONE Stop: 06/22/19 20:31 Last Admin: 06/22/19 22:00 Dose: Not Given Lactated Ringer's (Ringers, Lactated) 1,000 mls @ 999 mls/hr IV .BOLUS ONE Stop: 06/22/19 21:51 Last Admin: 06/22/19 20:52 Dose: 999 mls/hr Sodium Chloride (Normal Saline) 1,000 mls @ 999 mls/hr IV ONETIME ONE Stop: 06/22/19 20:19 Last Admin: 06/22/19 20:45 Dose: 999 mls/hr Lactated Ringer's (Ringers, Lactated) 1,000 mls @ 999 mls/hr IV .BOLUS ONE Stop: 06/22/19 20:53 Last Admin: 06/22/19 19:53 Dose: 999 mls/hr Dextrose/Sodium Chloride (Dextrose 5%-Normal Saline) 1,000 mls @ 100 mls/hr IV ASDIRECTED [facility]ODI Last Admin: 06/24/19 05:32 Dose: 100 mls/hr Magnesium Sulfate 2 gm/ Premix 50 mls @ 25 mls/hr IV NOW STA Stop: 06/24/19 10:24 Last Admin: 06/24/19 08:54 Dose: 25 mls/hr Insulin Human Lispro (Humalog) 0 unit SUBCUT QIDACANDBED [facility]; Protocol Last Admin: 06/22/19 22:39 Dose: Not Given Insulin Human Lispro (Humalog) 0 unit SUBCUT Q3H [facility]; Protocol Last Admin: 06/23/19 06:43 Dose: Not Given Losartan Potassium (Cozaar) 12.5 mg PO DAILY [facility] Naloxone HCl (Narcan) 2 mg IVPUSH ONETIME ONE Stop: 06/22/19 20:31 Last Admin: 06/22/19 20:39 Dose: 2 mg Naloxone HCl (Narcan) Confirm Administered Dose 2 mg .ROUTE .STK-MED ONE Stop: 06/22/19 20:28 Last Admin: 06/22/19 20:39 Dose: Not Given Pantoprazole Sodium (Protonix Iv) 40 mg IV Q12HR [facility] Last Admin: 06/23/19 08:00 Dose: 40 mg Paroxetine HCl (Paxil) 40 mg PO DAILY [facility] - Exam General: Reports: Alert, Oriented, Cooperative, No Acute Distress HEENT: Reports: Pupils Equal, Pupils Reactive, EOMI, Mucous Membr. Moist/[place]ck: Reports: Supple Lungs: Reports: Clear to Auscultation, Normal Respiratory Effort Cardiovascular: Reports: Regular Rate, Regular Rhythm GI/Abdominal Exam: Normal Bowel Sounds, Soft, Non-Tender, No Organomegaly, No Distention, No Abnormal Bruit, No Mass, Pelvis Stable (Female) Exam: Deferred Rectal (Female) Exam: Deferred Back Exam: Reports: Normal Inspection, Full Range of Motion Extremities: Normal Inspection, Normal Range of Motion, Non-Tender, No Pedal Edema, Normal Capillary Refill Skin: Reports: Warm, Dry, Intact Neurological: Reports: No New Focal Deficit Psy/Mental Status: Reports: Alert, Normal Affect, Normal Mood
== END 2019-06-25 11:40 | disposition home or self-care (01) | DRG 918 ==
LOC: JD.ED 19:11 → JD.ICU 20:52
PROVIDERS: ADMIT Internal Medicine; ATTEND Internal Medicine
DX: T42.4X1A Poisoning by benzodiazepines, accidental (unintentional), initial encounter (principal); N17.9 Acute kidney failure, unspecified; F33.2 Major depressive disorder, recurrent severe without psychotic features; K21.9 Gastro-esophageal reflux disease without esophagitis; T46.5X1A Poisoning by other antihypertensive drugs, accidental (unintentional), initial encounter; I10 Essential (primary) hypertension; F41.9 Anxiety disorder, unspecified; G43.909 Migraine, unspecified, not intractable, without status migrainosus; D50.9 Iron deficiency anemia, unspecified; H54.7 Unspecified visual loss; G89.29 Other chronic pain; E11.649 Type 2 diabetes mellitus with hypoglycemia without coma; M54.9 Dorsalgia, unspecified; M54.2 Cervicalgia; M19.90 Unspecified osteoarthritis, unspecified site; F17.210 Nicotine dependence, cigarettes, uncomplicated; E87.6 Hypokalemia; G40.909 Epilepsy, unspecified, not intractable, without status epilepticus; Z98.84 Bariatric surgery status; Z90.49 Acquired absence of other specified parts of digestive tract; Z98.890 Other specified postprocedural states; Z90.710 Acquired absence of both cervix and uterus; Z98.51 Tubal ligation status; Z90.722 Acquired absence of ovaries, bilateral; Z86.711 Personal history of pulmonary embolism; Z79.51 Long term (current) use of inhaled steroids; Z79.899 Other long term (current) drug therapy; Z88.1 Allergy status to other antibiotic agents; Z88.5 Allergy status to narcotic agent; Z88.8 Allergy status to other drugs, medicaments and biological substances
CPT/HCPCS: 36415; 51702; 80048; 80053; 80164; 80306; 81003; 82962; 83735; 85025; 93005; 93010; 94640; 96361; 96374; 96375; 96376; 97110-GP; 97116-GP; 97161-GP; 97165-GO; 99283; 99285-25; A9270-GY; C9113; G0480; J1610; J1815-GY; J1885; J2310; J2405; J3475; J7040; J7042; J7060; J7120

== ENCOUNTER 2019-12-16 20:06 | Inpatient (IN) | payer MEDICAID ==
[2019-12-16] MEDS ORDERED: Sodium Chloride 0.9% 10 ML Syringe FLUSH PRN (20:25)
[2019-12-16] MEDS ORDERED: Sodium Chloride 0.9% 1,000 ML IV SCH (20:30)
--- NOTE | 2019-12-16 21:06 | EDM.PDOC ---
ED HPI GENERAL MEDICAL PROBLEM - General Chief Complaint: Cardiovascular Problem Stated Complaint: [facility] Time Seen by Provider: 12/16/19 20:09 Source of Information: Reports: Patient, EMS History Limitations: Reports: No Limitations - History of Present Illness INITIAL COMMENTS - FREE TEXT/NARRATIVE: The patient presents by [facility] for a possible seizure. The patient has a know history of seizures. She said for the past few days she has felt very weak. She may have had a seizure tonight. She did fall and hit her head. She has a contusion to the right lateral eyebrow. She has some back pain but that is chronic. Her blood sugar was low at 59 on scene and she was given some glucose tabs. Her point of care glucose was 76 here. She has no fever, chills, cough, congestion, runny nose, chest pain, shortness of breath, abdominal pain, nausea or vomiting. She has no dysuria or hematuria. She was weak yesterday and today and could not get any house work done. Onset: Gradual Duration: Day(s): Severity: Moderate Improves with: Reports: None Worsens with: Reports: None Associated Symptoms: Reports: No Other Symptoms - Related Data Allergies Allergy/AdvReac Type Severity Reaction Status Date / Time cephalexin Allergy Hives Verified 12/16/19 20:09 morphine Allergy Itching Verified 12/16/19 20:09 venlafaxine [From Effexor] Allergy Cannot Verified 12/16/19 20:09 Remember lisinopril AdvReac Muscle Verified 12/16/19 20:09 Aches Home Meds: Home Meds Gabapentin [Neurontin] 600 mg PO TID 06/22/19 [History] PARoxetine HCl [Paxil] 40 mg PO DAILY 06/22/19 [History] Pantoprazole Sodium [Protonix] 40 mg PO DAILY 06/22/19 [History] Propranolol [Inderal] 20 mg PO TID 06/22/19 [History] cloNIDine [Catapres] 0.1 mg PO BEDTIME PRN 06/22/19 [History] clonazePAM [Klonopin] 1 mg PO TID 06/22/19 [History] Chlorthalidone 25 mg PO DAILY 06/24/19 [History] traZODone HCl [Trazodone HCl] 100 mg PO BEDTIME 06/24/19 [History] Divalproex Sodium [Depakote ER] 500 mg PO BID #0 06/25/19 [Rx] Losartan [Cozaar] 100 mg PO DAILY 12/16/19 [History] Ondansetron [Zofran] 4 mg PO Q8H PRN 12/16/19 [History] SUMAtriptan Succinate [Imitrex] 100 mg PO ASDIRECTED PRN 12/16/19 [History] Past Medical History HEENT History: Reports: Allergic Rhinitis, Impaired Vision Other HEENT History: wears glasses, dentures Cardiovascular History: Reports: Blood Clots/VTE/DVT, Hypertension Respiratory History: Reports: PE Gastrointestinal History: Reports: Bowel Obstruction, GERD, PUD Other Gastrointestinal History: Perotinitis, gastric ulcer Genitourinary History: Reports: None, Pyelonephritis Musculoskeletal History: Reports: Back Pain, Chronic, Neck Pain, Chronic, Osteoarthritis Neurological History: Reports: Migraines Psychiatric History: Reports: Anxiety, Depression Endocrine/Metabolic History: Reports: Diabetes, Type II Other Endocrine/Metabolic History: hzx of DM II in the past. 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 - Past Surgical History GI Surgical History: Reports: Bariatric Procedure, Cholecystectomy, Hernia, Abdominal, Small Bowel Female Surgical History: Reports: Hysterectomy, Salpingo-Oophorectomy, Tubal Ligation Musculoskeletal Surgical History: Reports: Shoulder Surgery Social & Family History - Family History Family Medical History: Noncontributory - Tobacco Use Smoking Status *Q: Current Every Day Smoker Years of Tobacco use: 39 Packs/Tins Daily: 1 - Caffeine Use Caffeine Use: Reports: Coffee Caffeine Use Comment: unknown - Recreational Drug Use Recreational Drug Use: No - Living Situation & Occupation Living situation: Reports: , with Spouse, with Family (Daughter, 2 grandkids) 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 Denies: Fever, Chills HEENT: Reports: No Symptoms Respiratory: Reports: No Symptoms Cardiovascular: Reports: No Symptoms Endocrine: Reports: No Symptoms GI/Abdominal: Reports: No Symptoms : Reports: No Symptoms Musculoskeletal: Reports: Back Pain Skin: Reports: No Symptoms Neurological: Reports: Weakness ED EXAM, GENERAL - Physical Exam Exam: See Below Exam Limited By: No Limitations General Appearance: Other (Sleepy but she answers all of my questions) Eye Exam: Bilateral Eye: EOMI, PERRL Ears: Normal External Exam Nose: Normal Inspection Head: Other (Ecchymosis to the right lateral eyebrow) Neck: Normal Inspection, Supple, Non-Tender Respiratory/Chest: No Respiratory Distress, Lungs Clear, Normal Breath Sounds Cardiovascular: Regular Rate, Rhythm, No Edema, No Murmur GI/Abdominal: Soft, Non-Tender, No Organomegaly, No Mass Back Exam: Normal Inspection Extremities: Normal Inspection Neurological: Alert, Oriented, No Motor/Sensory Deficits Course - Vital Signs Last Recorded V/S: Last Vital Signs Temp 97.1 F 12/16/19 20:09 Pulse 60 12/16/19 20:09 Resp 16 12/16/19 20:09 BP 75/48 L 12/16/19 20:09 Pulse Ox 92 L 12/16/19 20:09 - Orders/Labs/Meds Orders: Active Orders 24 hr Category Date Time Status Accu Check [Blood Glucose Check, Bedside] [RC] ONETIME Care 12/16/19 21:35 Active Cardiac Monitoring [RC] . DIRECTED Care 12/16/19 20:25 Active EKG Documentation Completion [RC] STAT Care 12/16/19 20:26 Active Oxygen Therapy [RC] PRN Care 12/16/19 20:25 Active Peripheral IV Care [RC] . DIRECTED Care 12/16/19 20:25 Active Head wo Cont [CT] Stat Exams 12/16/19 20:26 Taken DRUG SCREEN, URINE [URCHEM] Stat Lab 12/16/19 20:25 Ordered UA W/MICROSCOPIC [URIN] Stat Lab 12/16/19 20:25 Ordered VALPROIC ACID [CHEM] Stat Lab 12/16/19 20:14 Received Potassium Chloride [KCl 10 MEQ in Water 100 ML] 10 meq Med 12/16/19 21:30 Active Premix Bag 1 bag IV Q1H Sodium Chloride 0.9% [Normal Saline] 1,000 ml Med 12/16/19 20:30 Active IV .BOLUS Sodium Chloride 0.9% [Normal Saline] 1,000 ml Med 12/16/19 21:35 Active IV ONETIME Sodium Chloride 0.9% [Saline Flush] Med 02/14/20 20:25 Active 10 ml FLUSH ASDIRECTED PRN Peripheral IV Insertion Adult [OM.PC] Stat Oth 12/16/19 20:25 Ordered Medication Orders Sodium Chloride (Normal Saline) 1,000 mls @ 1,000 mls/hr IV .BOLUS JODI Last Admin: 12/16/19 20:37 Dose: 1,000 mls/hr Potassium Chloride 10 meq/ (Premix) 100 mls @ 100 mls/hr IV Q1H JODI Stop: 12/17/19 01:29 Last Admin: 12/16/19 21:43 Dose: 100 mls/hr Sodium Chloride (Normal Saline) 1,000 mls @ 1,000 mls/hr IV ONETIME ONE Stop: 12/16/19 22:34 Last Admin: 12/16/19 21:40 Dose: 1,000 mls/hr Sodium Chloride (Saline Flush) 10 ml FLUSH ASDIRECTED PRN PRN Reason: Keep Vein Open Last Admin: 12/16/19 20:50 Dose: 10 ml Labs: Laboratory Tests 12/16/19 12/16/19 12/16/19 Range/Units 20:09 20:14 20:15 WBC 5.62 (3.98-10.04) K/mm3 RBC 4.08 (3.98-5.22) M/mm3 Hgb 10.9 L D (11.2-15.7) gm/dl Hct 34.3 (34.1-44.9) % MCV 84.1 D (79.4-94.8) fl MCH 26.7 (25.6-32.2) pg MCHC 31.8 L (32.2-35.5) g/dl RDW Std Deviation 61.5 H (36.4-46.3) fL Plt Count 202 D (182-369) K/mm3 MPV 10.8 (9.4-12.3) fl Neut % (Auto) 32.1 L (34.0-71.1) % Lymph % (Auto) 50.7 (19.3-51.7) % [place] % (Auto) 14.2 H (4.7-12.5) % Eos % (Auto) 2.5 (0.7-5.8) Baso % (Auto) 0.5 (0.1-1.2) % Neut # (Auto) 1.80 (1.56-6.13) K/mm3 Lymph # (Auto) 2.85 (1.18-3.74) K/mm3 [place] # (Auto) 0.80 H (0.24-0.36) K/mm3 Eos # (Auto) 0.14 (0.04-0.36) K/mm3 Baso # (Auto) 0.03 (0.01-0.08) K/mm3 Sodium 135 L (136-145) mEq/L Potassium 2.9 L (3.5-5.1) mEq/L Chloride 99 (98-107) mEq/L Carbon Dioxide 26 (21-32) mEq/L Anion Gap 12.9 (5-15) BUN 20 H (7-18) mg/dL Creatinine 1.2 H (0.55-1.02) mg/dL Est Cr Clr Drug Dosing 48.42 mL/min Estimated GFR (MDRD) 46 (>60) mL/min BUN/Creatinine Ratio 16.7 (14-18) Glucose 47 L (74-106) mg/dL POC Glucose 76 (70-105) mg/dL Calcium 8.7 (8.5-10.1) mg/dL Magnesium 1.7 L (1.8-2.4) mg/dl Total Bilirubin 0.3 (0.2-1.0) mg/dL AST 11 L (15-37) U/L ALT 16 (14-59) U/L Alkaline Phosphatase 37 L (46-116) U/L Troponin I < 0.017 (0.00-0.056) ng/mL Total Protein 6.6 (6.4-8.2) g/dl Albumin 3.2 L (3.4-5.0) g/dl Globulin 3.4 gm/dL Albumin/Globulin Ratio 0.9 L (1-2) Ethyl Alcohol 0.00 (0.00) gm% Meds: Medications Generic Name Dose Route Start Last Admin Trade Name Freq PRN Reason Stop Dose Admin Sodium Chloride 1,000 mls @ 1,000 mls/hr 12/16/19 20:30 12/16/19 20:37 Normal Saline IV 1,000 mls/hr .BOLUS JODI Administration Potassium Chloride 10 meq/ 100 mls @ 100 mls/hr 12/16/19 21:30 12/16/19 21:43 Premix IV 12/17/19 01:29 100 mls/hr Q1H JODI Administration Sodium Chloride 1,000 mls @ 1,000 mls/hr 12/16/19 21:35 12/16/19 21:40 Normal Saline IV 12/16/19 22:34 1,000 mls/hr ONETIME ONE Administration Sodium Chloride 10 ml 12/16/19 20:25 12/16/19 20:50 Saline Flush FLUSH 10 ml ASDIRECTED PRN Administration Keep Vein Open - Re-Assessments/Exams Free Text/Narrative Re-Assessment/Exam: 12/16/19 21:12 I ordered an IV NS 1L bolus, CT of her head, labs, UA and an EKG. Her EKG shows a NSR with no acute changes. Her CT shows nothing acute. Lab called because her blood sugar was 47. I gave her some juice. Her Hgb is low at 10.9. Her Na is a little low at 135. Her K was low at 2.9. Her creatinine is slightly elevated at 1.2. Her mag was a little low at 1.7. Her troponin is negative. Her ETOH is 0. 12/16/19 21:45 I ordered potassium and another liter of fluids. I talked to Dr Colby and he agreed to the admission. Departure - Departure Time of Disposition: 21:50 Disposition: Admitted As Inpatient 68 Condition: Fair Clinical Impression: Hypoglycemia, Seizure, Hypokalemia Hypotension Qualifiers: Hypotension type: other hypotension type Qualified Code(s): I95.89 - Other hypotension Referrals: PCP,Unknown [Ordering Only Provider] - Forms: ED Department Discharge Sepsis Event Note - Evaluation Sepsis Screening Result: No Definite Risk - Focused Exam Vital Signs: Vital Signs Temp Pulse Resp BP Pulse Ox 12/16/19 20:09 97.1 F 60 16 75/48 L 92 L Date Exam was Performed: 12/16/19 Time Exam was Performed: 21:45 - My Orders Last 24 Hours: My Active Orders 12/16/19 20:14 VALPROIC ACID [CHEM] Stat 12/16/19 20:25 Cardiac Monitoring [RC] . DIRECTED Oxygen Therapy [RC] PRN Peripheral IV Care [RC] . DIRECTED DRUG SCREEN, URINE [URCHEM] Stat UA W/MICROSCOPIC [URIN] Stat Sodium Chloride 0.9% [Saline Flush] 10 ml FLUSH ASDIRECTED PRN Peripheral IV Insertion Adult [OM.PC] Stat 12/16/19 20:26 EKG Documentation Completion [RC] STAT Head wo Cont [CT] Stat 12/16/19 20:30 Sodium Chloride 0.9% [Normal Saline] 1,000 ml IV .BOLUS 12/16/19 21:30 Potassium Chloride [KCl 10 MEQ in Water 100 ML] 10 meq Premix Bag 1 bag IV Q1H 12/16/19 21:35 Accu Check [Blood Glucose Check, Bedside] [RC] ONETIME Sodium Chloride 0.9% [Normal Saline] 1,000 ml IV ONETIME - Assessment/Plan Last 24 Hours: My Active Orders 12/16/19 20:14 VALPROIC ACID [CHEM] Stat 12/16/19 20:25 Cardiac Monitoring [RC] . DIRECTED Oxygen Therapy [RC] PRN Peripheral IV Care [RC] . DIRECTED DRUG SCREEN, URINE [URCHEM] Stat UA W/MICROSCOPIC [URIN] Stat Sodium Chloride 0.9% [Saline Flush] 10 ml FLUSH ASDIRECTED PRN Peripheral IV Insertion Adult [OM.PC] Stat 12/16/19 20:26 EKG Documentation Completion [RC] STAT Head wo Cont [CT] Stat 12/16/19 20:30 Sodium Chloride 0.9% [Normal Saline] 1,000 ml IV .BOLUS 12/16/19 21:30 Potassium Chloride [KCl 10 MEQ in Water 100 ML] 10 meq Premix Bag 1 bag IV Q1H 12/16/19 21:35 Accu Check [Blood Glucose Check, Bedside] [RC] ONETIME Sodium Chloride 0.9% [Normal Saline] 1,000 ml IV ONETIME
[2019-12-16] MEDS ORDERED: Sodium Chloride 0.9% 1,000 ML IV ONE (21:35)
[2019-12-16] MEDS: Potassium Chloride 10 MEQ in Premix Bag 1 BAG IV SCH ×2 (21:43→23:11)
[2019-12-16] MEDS ORDERED: Dextrose 5% in Water 1,000 ML IV SCH (22:00)
--- NOTE | 2019-12-16 22:10 | PCM.HP.2 ---
H&P History of Present Illness - General Date of Service: 12/16/19 Admit Problem/Dx: Hypotension, hypoglycemia - History of Present Illness Initial Comments - Free Text/Narative: Patient comes into the emergency room today with complaints of feeling weak for the last couple of days. This evening she was walking across the living room floor and then fell after becoming extremely fatigued. She did hit the back of her head. Patient's states that they have not been eating well over the last couple of days, today she is only had cheese and crackers and some apple pie. She had gastric bypass surgery in 2007 and last year in July or August was diagnosed with hypoglycemia. Patient also has a history of seizure disorder and her thinks she may have had a seizure that caused her fall. She is on chronic potassium replacement, but has not been taking it for the last 1 to 2 months. She did start taking it 2 days ago because of feeling weak. Approximately 3 weeks ago she did develop an upper respiratory tract infection and was prescribed azithromycin to concurrent courses and another antibiotic when that failed. Patient smokes 1 pack/day, and does not drink. She denies history of lung disease. Patient also has a history of hypertension and takes chlorthalidone and losartan. When she presented to the emergency room her blood sugars were less than 50 and her blood pressure was 70- 80 systolic. She was given fluid boluses to include D5 and potassium supplementation. Valproic acid was found to be low at 36.4. - Related Data Allergies/Adverse Reactions: Allergies Allergy/AdvReac Type Severity Reaction Status Date / Time cephalexin Allergy Hives Verified 12/17/19 00:48 morphine Allergy Itching Verified 12/17/19 00:48 venlafaxine [From Effexor] Allergy Cannot Verified 12/17/19 00:48 Remember lisinopril AdvReac Muscle Verified 12/17/19 00:48 Aches Home Medications: Home Meds Gabapentin [Neurontin] 600 mg PO TID 06/22/19 [History] PARoxetine HCl [Paxil] 40 mg PO DAILY 06/22/19 [History] Pantoprazole Sodium [Protonix] 40 mg PO DAILY 06/22/19 [History] Propranolol [Inderal] 20 mg PO TID 06/22/19 [History] cloNIDine [Catapres] 0.1 mg PO BEDTIME PRN 06/22/19 [History] clonazePAM [Klonopin] 1 mg PO TID 06/22/19 [History] Chlorthalidone 25 mg PO DAILY 06/24/19 [History] traZODone HCl [Trazodone HCl] 100 mg PO BEDTIME 06/24/19 [History] Losartan [Cozaar] 100 mg PO DAILY 12/16/19 [History] Ondansetron [Zofran] 4 mg PO Q8H PRN 12/16/19 [History] SUMAtriptan Succinate [Imitrex] 100 mg PO ASDIRECTED PRN MDD 200 mg 12/16/19 [ History] Divalproex Sodium [Depakote] 500 mg PO BID 12/17/19 [History] Past Medical History HEENT History: Reports: Allergic Rhinitis, Impaired Vision Other HEENT History: wears glasses, dentures Cardiovascular History: Reports: Blood Clots/VTE/DVT, Hypertension Respiratory History: Reports: PE Gastrointestinal History: Reports: Bowel Obstruction, GERD, PUD Other Gastrointestinal History: Perotinitis, gastric ulcer Genitourinary History: Reports: None, Pyelonephritis Musculoskeletal History: Reports: Back Pain, Chronic, Neck Pain, Chronic, Osteoarthritis Neurological History: Reports: Migraines Psychiatric History: Reports: Anxiety, Depression Endocrine/Metabolic History: Reports: Diabetes, Type II Other Endocrine/Metabolic History: hzx of DM II in the past. 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 - Past Surgical History GI Surgical History: Reports: Bariatric Procedure, Cholecystectomy, Hernia, Abdominal, Small Bowel Female Surgical History: Reports: Hysterectomy, Salpingo-Oophorectomy, Tubal Ligation Musculoskeletal Surgical History: Reports: Shoulder Surgery Social & Family History - Family History Family Medical History: Noncontributory - Tobacco Use Smoking Status *Q: Current Every Day Smoker Years of Tobacco use: 39 Packs/Tins Daily: 1 - Caffeine Use Caffeine Use: Reports: Coffee Caffeine Use Comment: unknown - Recreational Drug Use Recreational Drug Use: No - Living Situation & Occupation Living situation: Reports: , with Spouse, with Family (Daughter, 2 grandkids) 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 Exam - Exam Exam: See Below - Vital Signs Vital Signs: Last Vital Signs Temp 97.1 F 12/16/19 20:09 Pulse 60 12/16/19 20:09 Resp 16 12/16/19 20:09 BP 75/48 L 12/16/19 20:09 Pulse Ox 92 L 12/16/19 20:09 Weight: 155 lb - Exam Quality Assessment: No: Supplemental Oxygen General: Cooperative, Lethargic HEENT: Conjunctiva Clear, Mucosa Moist & [place] Neck: Supple, Trachea Midline Lungs: Clear to Auscultation, Normal Respiratory Effort Cardiovascular: Regular Rate, Regular Rhythm GI/Abdominal Exam: Normal Bowel Sounds, Soft, Non-Tender, No Organomegaly, No Distention, No Abnormal Bruit, No Mass Extremities: Normal Inspection, Normal Range of Motion, Non-Tender, No Pedal Edema, Normal Capillary Refill Skin: Warm, Dry, Intact Neuro Extensive - Mental Status: Oriented x3, Normal Mood/Affect, Normal Cognition, Other (Fell asleep easily with interview.) Neuro Extensive - Motor, Sensory, Reflexes: CN II-XII Intact Psychiatric: Normal Affect, Normal Mood - Patient Data Lab Results Last 24 hrs: Laboratory Results - last 24 hr 12/16/19 12/16/19 12/16/19 Range/Units 20:09 20:14 20:15 WBC 5.62 (3.98-10.04) K/mm3 RBC 4.08 (3.98-5.22) M/mm3 Hgb 10.9 L D (11.2-15.7) gm/dl Hct 34.3 (34.1-44.9) % MCV 84.1 D (79.4-94.8) fl MCH 26.7 (25.6-32.2) pg MCHC 31.8 L (32.2-35.5) g/dl RDW Std Deviation 61.5 H (36.4-46.3) fL Plt Count 202 D (182-369) K/mm3 MPV 10.8 (9.4-12.3) fl Neut % (Auto) 32.1 L (34.0-71.1) % Lymph % (Auto) 50.7 (19.3-51.7) % [place] % (Auto) 14.2 H (4.7-12.5) % Eos % (Auto) 2.5 (0.7-5.8) Baso % (Auto) 0.5 (0.1-1.2) % Neut # (Auto) 1.80 (1.56-6.13) K/mm3 Lymph # (Auto) 2.85 (1.18-3.74) K/mm3 [place] # (Auto) 0.80 H (0.24-0.36) K/mm3 Eos # (Auto) 0.14 (0.04-0.36) K/mm3 Baso # (Auto) 0.03 (0.01-0.08) K/mm3 Sodium 135 L (136-145) mEq/L Potassium 2.9 L (3.5-5.1) mEq/L Chloride 99 (98-107) mEq/L Carbon Dioxide 26 (21-32) mEq/L Anion Gap 12.9 (5-15) BUN 20 H (7-18) mg/dL Creatinine 1.2 H (0.55-1.02) mg/dL Est Cr Clr Drug Dosing 48.42 mL/min Estimated GFR (MDRD) 46 (>60) mL/min BUN/Creatinine Ratio 16.7 (14-18) Glucose 47 L (74-106) mg/dL POC Glucose 76 (70-105) mg/dL Calcium 8.7 (8.5-10.1) mg/dL Magnesium 1.7 L (1.8-2.4) mg/dl Total Bilirubin 0.3 (0.2-1.0) mg/dL AST 11 L (15-37) U/L ALT 16 (14-59) U/L Alkaline Phosphatase 37 L (46-116) U/L Troponin I < 0.017 (0.00-0.056) ng/mL Total Protein 6.6 (6.4-8.2) g/dl Albumin 3.2 L (3.4-5.0) g/dl Globulin 3.4 gm/dL Albumin/Globulin Ratio 0.9 L (1-2) Ethyl Alcohol 0.00 (0.00) gm% 12/16/19 Range/Units 21:47 WBC (3.98-10.04) K/mm3 RBC (3.98-5.22) M/mm3 Hgb (11.2-15.7) gm/dl Hct (34.1-44.9) % MCV (79.4-94.8) fl MCH (25.6-32.2) pg MCHC (32.2-35.5) g/dl RDW Std Deviation (36.4-46.3) fL Plt Count (182-369) K/mm3 MPV (9.4-12.3) fl Neut % (Auto) (34.0-71.1) % Lymph % (Auto) (19.3-51.7) % [place] % (Auto) (4.7-12.5) % Eos % (Auto) (0.7-5.8) Baso % (Auto) (0.1-1.2) % Neut # (Auto) (1.56-6.13) K/mm3 Lymph # (Auto) (1.18-3.74) K/mm3 [place] # (Auto) (0.24-0.36) K/mm3 Eos # (Auto) (0.04-0.36) K/mm3 Baso # (Auto) (0.01-0.08) K/mm3 Sodium (136-145) mEq/L Potassium (3.5-5.1) mEq/L Chloride (98-107) mEq/L Carbon Dioxide (21-32) mEq/L Anion Gap (5-15) BUN (7-18) mg/dL Creatinine (0.55-1.02) mg/dL Est Cr Clr Drug Dosing mL/min Estimated GFR (MDRD) (>60) mL/min BUN/Creatinine Ratio (14-18) Glucose (74-106) mg/dL POC Glucose 58 L (70-105) mg/dL Calcium (8.5-10.1) mg/dL Magnesium (1.8-2.4) mg/dl Total Bilirubin (0.2-1.0) mg/dL AST (15-37) U/L ALT (14-59) U/L Alkaline Phosphatase (46-116) U/L Troponin I (0.00-0.056) ng/mL Total Protein (6.4-8.2) g/dl Albumin (3.4-5.0) g/dl Globulin gm/dL Albumin/Globulin Ratio (1-2) Ethyl Alcohol (0.00) gm% Result Diagrams: 12/17/19 05:25 12/17/19 05:25 Sepsis Event Note - Evaluation Sepsis Screening Result: No Definite Risk - Focused Exam Vital Signs: Vital Signs Temp Pulse Resp BP Pulse Ox 12/16/19 20:09 97.1 F 60 16 75/48 L 92 L Date Exam was Performed: 12/17/19 Time Exam was Performed: 12:24 Problem List Initiated/Reviewed/Updated: Yes Orders Last 24hrs: Active Orders 24 hr Category Date Time Status Accu Check [Blood Glucose Check, Bedside] [RC] ONETIME Care 12/16/19 21:35 Active Cardiac Monitoring [RC] . DIRECTED Care 12/16/19 20:25 Active EKG Documentation Completion [RC] STAT Care 12/16/19 20:26 Active Oxygen Therapy [RC] PRN Care 12/16/19 20:25 Active Peripheral IV Care [RC] . DIRECTED Care 12/16/19 20:25 Active Head wo Cont [CT] Stat Exams 12/16/19 20:26 Taken DRUG SCREEN, URINE [URCHEM] Stat Lab 12/16/19 20:25 Ordered UA W/MICROSCOPIC [URIN] Stat Lab 12/16/19 20:25 Ordered VALPROIC ACID [CHEM] Stat Lab 12/16/19 20:14 Received Dextrose 5% in Water 1,000 ml Med 12/16/19 22:00 Active IV ASDIRECTED Potassium Chloride [KCl 10 MEQ in Water 100 ML] 10 meq Med 12/16/19 21:30 Active Premix Bag 1 bag IV Q1H Sodium Chloride 0.9% [Normal Saline] 1,000 ml Med 12/16/19 20:30 Active IV .BOLUS Sodium Chloride 0.9% [Normal Saline] 1,000 ml Med 12/16/19 21:35 Active IV ONETIME Sodium Chloride 0.9% [Saline Flush] Med 12/16/19 20:25 Active 10 ml FLUSH ASDIRECTED PRN Peripheral IV Insertion Adult [OM.PC] Stat Oth 12/16/19 20:25 Ordered Medication Orders Sodium Chloride (Normal Saline) 1,000 mls @ 1,000 mls/hr IV .BOLUS JODI Last Admin: 12/16/19 20:37 Dose: 1,000 mls/hr Potassium Chloride 10 meq/ (Premix) 100 mls @ 100 mls/hr IV Q1H JODI Stop: 12/17/19 01:29 Last Admin: 12/16/19 21:43 Dose: 100 mls/hr Sodium Chloride (Normal Saline) 1,000 mls @ 1,000 mls/hr IV ONETIME ONE Stop: 12/16/19 22:34 Last Admin: 12/16/19 21:40 Dose: 1,000 mls/hr Dextrose/Water (Dextrose 5% In Water) 1,000 mls @ 1,000 mls/hr IV ASDIRECTED JODI Last Admin: 12/16/19 21:58 Dose: 1,000 mls/hr Sodium Chloride (Saline Flush) 10 ml FLUSH ASDIRECTED PRN PRN Reason: Keep Vein Open Last Admin: 12/16/19 20:50 Dose: 10 ml Assessment/Plan Comment:: Assessment * Hypoglycemia of unknown cause * Blood sugar at the scene by EMS was 59 and [id number] in the emergency room was 76. Initial chemistry glucose of 47. * Given juice, D5 saline and transferred to the ICU for observation. * History of gastric bypass surgery in 2007 * To poor oral intake over the last couple of days * Took her 's phentermine 30 mg half capsule for couple of days prior to admission, but not the day of admission * Positive amphetamine on urine drug screen possibly due to phentermine * Previous episode of hypoglycemia and admitted in June 2019 * Denies using any insulin or hypoglycemic agent * Hypotension * Initial blood pressures of 70s and 80s systolic * Resolved with fluid bolus * On chlorthalidone and losartan * Anxiety and depression * Multiple medications, but none that cause hypoglycemia * Paxil, clonidine, clonazepam, Depakote * Seizure disorder * Possible seizure on evening of admission * Possibly secondary to hypoglycemia versus seizure causing hypoglycemia * Home meds include gabapentin, clonazepam, Depakote * Hypertension * Home meds include chlorthalidone and losartan * Hypokalemia * Potassium 2.9 * Likely secondary to chlorthalidone and poor oral intake * Hypomagnesemia * Magnesium 1.7 Plan * Admit to ICU for close observation * D5 normal saline at 150 mL an hour * Normal diet * Monitor blood sugars every hour * Continue home medications * Get C-peptide and insulin level -unfortunately these are send out and will not be available during this hospitalization * Supplement potassium and magnesium and recheck in the morning * Encouraged not to use phentermine in the future. * She would benefit from dietary consult, but not available on the weekend. * VTE prophylaxis with SCDs and early ambulation * CODE STATUS: Full code - Mortality Measure Prognosis:: Good
[2019-12-17] MEDS ORDERED: 50% Dextrose in Water 50 ML Syringe ONE (00:25)
[2019-12-17] MEDS: Potassium Chloride 10 MEQ in Premix Bag 1 BAG IV SCH ×2 (00:29→01:42)
[2019-12-17] MEDS: 50% Dextrose in Water 50 ML Syringe IVPUSH PRN ×7 (00:30→21:09)
[2019-12-17] MEDS ORDERED: Dextrose 5% in Water 1,000 ML IV SCH (00:30)
[2019-12-17] MEDS ORDERED: Dextrose 10% in Water 1,000 ML IV SCH ×2 (04:15→10:15)
[2019-12-17] MEDS ORDERED: Dextrose 10% in Water 1,000 ML ONE ×2 (04:19→22:14)
[2019-12-17] MEDS: Pantoprazole 40 MG Tab.CR PO SCH (07:07)
[2019-12-17] MEDS: PARoxetine 20 MG Tab PO SCH (08:39)
[2019-12-17] MEDS: ClonazePAM 1 MG Tab PO SCH ×3 (08:39→20:20)
[2019-12-17] MEDS: Nicotine 21 MG/24 Hr Patch TRDERM SCH (08:39)
[2019-12-17] MEDS: Gabapentin 600 MG Tab PO SCH ×3 (08:39→20:20)
[2019-12-17] MEDS ORDERED: Divalproex Sodium 500 MG Tab.ER PO SCH (09:00)
[2019-12-17] MEDS ORDERED: Magnesium Sulfate/Water 4 GM in Premix Bag 1 BAG IV ONE (09:03)
[2019-12-17] MEDS ORDERED: Loperamide 2 MG Cap PO ONE (09:45)
[2019-12-17] MEDS: Divalproex Sodium Delayed-Release 500 MG Tab.CR PO SCH ×2 (10:11→20:20)
[2019-12-17] MEDS: Acetaminophen 325 MG Tab PO PRN ×2 (10:11→20:19)
[2019-12-17] MEDS ORDERED: Loperamide 2 MG Cap PO PRN (10:15)
[2019-12-17] MEDS: Dextrose 5%-0.9% NaCl 1,000 ML IV SCH ×2 (12:00→18:46)
[2019-12-17 12:16] LABS: HEMOGLOBIN A1C 5.6 % (4.50-6.20)
[2019-12-17] MEDS ORDERED: SUMAtriptan 50 MG Tab PO PRN (12:30)
--- NOTE | 2019-12-17 13:04 | PCM.PN ---
- General Info Date of Service: 12/17/19 Admission Dx/Problem (Free Text): Hypotension, hypoglycemia Subjective Update: Pinky continues to have episodes of hypoglycemia with blood sugars in the 60s. She is on D5 normal saline and eating a regular diet with juice. She has required a half amp of D50. Patient states that she had an episode similar to this also in [facility]. She has had 2 previous episodes starting in June requiring hospitalization and treatment. She has not had hypoglycemic work-up nor has been seen by specialty. Unfortunately, the only [facility] is in [place] and takes months to get in. - Review of Systems General: Reports: Fatigue HEENT: Reports: No Symptoms Pulmonary: Reports: No Symptoms Cardiovascular: Reports: No Symptoms - Patient Data Vitals - Most Recent: Last Vital Signs Temp 98.3 F 12/17/19 12:00 Pulse 72 12/17/19 04:00 Resp 20 12/17/19 12:00 BP 120/74 12/17/19 12:00 Pulse Ox 100 12/17/19 12:00 Weight - Most Recent: 155 lb I&O - Last 24 Hours: Intake & Output 12/16/19 12/17/19 12/17/19 22:59 06:59 14:59 Intake Total 1809 0 Output Total 1800 Balance 9 0 Lab Results Last 24 Hours: Laboratory Results - last 24 hr 12/16/19 12/16/19 12/16/19 Range/Units 20:09 20:14 20:14 WBC (3.98-10.04) K/mm3 RBC (3.98-5.22) M/mm3 Hgb (11.2-15.7) gm/dl Hct (34.1-44.9) % MCV (79.4-94.8) fl MCH (25.6-32.2) pg MCHC (32.2-35.5) g/dl RDW Std Deviation (36.4-46.3) fL Plt Count (182-369) K/mm3 MPV (9.4-12.3) fl Neut % (Auto) (34.0-71.1) % Lymph % (Auto) (19.3-51.7) % [place] % (Auto) (4.7-12.5) % Eos % (Auto) (0.7-5.8) Baso % (Auto) (0.1-1.2) % Neut # (Auto) (1.56-6.13) K/mm3 Lymph # (Auto) (1.18-3.74) K/mm3 [place] # (Auto) (0.24-0.36) K/mm3 Eos # (Auto) (0.04-0.36) K/mm3 Baso # (Auto) (0.01-0.08) K/mm3 Neutrophils % (Manual) (40-60) % Band Neutrophils % (0-10) % Lymphocytes % (Manual) (20-40) % Atypical Lymphs % % Monocytes % (Manual) (2-10) % Eosinophils % (Manual) (0.7-5.8) % Basophils % (Manual) (0.1-1.2) Platelet Estimate Target Cells Tear Drop Cells [place] Cells RBC Morph Comment Sodium 135 L (136-145) mEq/L Potassium 2.9 L (3.5-5.1) mEq/L Chloride 99 (98-107) mEq/L Carbon Dioxide 26 (21-32) mEq/L Anion Gap 12.9 (5-15) BUN 20 H (7-18) mg/dL Creatinine 1.2 H (0.55-1.02) mg/dL Est Cr Clr Drug Dosing 48.42 mL/min Estimated GFR (MDRD) 46 (>60) mL/min BUN/Creatinine Ratio 16.7 (14-18) Glucose 47 L (74-106) mg/dL POC Glucose 76 (70-105) mg/dL Hemoglobin A1c (4.50-6.20) % Calcium 8.7 (8.5-10.1) mg/dL Magnesium 1.7 L (1.8-2.4) mg/dl Total Bilirubin 0.3 (0.2-1.0) mg/dL AST 11 L (15-37) U/L ALT 16 (14-59) U/L Alkaline Phosphatase 37 L (46-116) U/L Troponin I < 0.017 (0.00-0.056) ng/mL Total Protein 6.6 (6.4-8.2) g/dl Albumin 3.2 L (3.4-5.0) g/dl Globulin 3.4 gm/dL Albumin/Globulin Ratio 0.9 L (1-2) Lipase (73-393) U/L Urine Color (Yellow) Urine Appearance (Clear) Urine pH (5.0-8.0) Ur Specific Rake (1.005-1.030) Urine Protein (Negative) Urine Glucose (UA) (Negative) Urine Ketones (Negative) Urine Occult Blood (Negative) Urine Nitrite (Negative) Urine Bilirubin (Negative) Urine Urobilinogen (0.2-1.0) Ur Leukocyte Esterase (Negative) U Hyaline Cast (Auto) (0-5) /lpf Urine RBC (0-5) /hpf Urine WBC (0-5) /hpf Ur Squamous Epith Cells (0-5) /hpf Urine Bacteria (FEW) /hpf Urine Mucus (FEW) /hpf Urine Opiates Screen (RQFEJS=618) Ur Buprenorphine Scrn (CUTOFF=10) Ur Oxycodone Screen (BVZ1AO=364) Urine Methadone Screen (YTAPBG=918) Ur Propoxyphene Screen (XEWHPI=550) Ur Barbiturates Screen (JVNEJP=543) Valproic Acid 36.4 L (50.0-100.0) ug/mL Ur Tricyclics Screen (JBKIEQ=966) Ur Phencyclidine Scrn (CUTOFF=25) Ur Amphetamine Screen (EBJWRE=735) U Methamphetamines Scrn (AADRBH=570) U Benzodiazepines Scrn (OBZIRT=630) U Cocaine Metab Screen (PWVPWY=606) U Marijuana (THC) Screen (CUTOFF=50) Ethyl Alcohol 0.00 (0.00) gm% 12/16/19 12/16/19 12/16/19 Range/Units 20:15 21:47 22:35 WBC 5.62 (3.98-10.04) K/mm3 RBC 4.08 (3.98-5.22) M/mm3 Hgb 10.9 L D (11.2-15.7) gm/dl Hct 34.3 (34.1-44.9) % MCV 84.1 D (79.4-94.8) fl MCH 26.7 (25.6-32.2) pg MCHC 31.8 L (32.2-35.5) g/dl RDW Std Deviation 61.5 H (36.4-46.3) fL Plt Count 202 D (182-369) K/mm3 MPV 10.8 (9.4-12.3) fl Neut % (Auto) 32.1 L (34.0-71.1) % Lymph % (Auto) 50.7 (19.3-51.7) % [place] % (Auto) 14.2 H (4.7-12.5) % Eos % (Auto) 2.5 (0.7-5.8) Baso % (Auto) 0.5 (0.1-1.2) % Neut # (Auto) 1.80 (1.56-6.13) K/mm3 Lymph # (Auto) 2.85 (1.18-3.74) K/mm3 [place] # (Auto) 0.80 H (0.24-0.36) K/mm3 Eos # (Auto) 0.14 (0.04-0.36) K/mm3 Baso # (Auto) 0.03 (0.01-0.08) K/mm3 Neutrophils % (Manual) (40-60) % Band Neutrophils % (0-10) % Lymphocytes % (Manual) (20-40) % Atypical Lymphs % % Monocytes % (Manual) (2-10) % Eosinophils % (Manual) (0.7-5.8) % Basophils % (Manual) (0.1-1.2) Platelet Estimate Target Cells Tear Drop Cells [place] Cells RBC Morph Comment Sodium (136-145) mEq/L Potassium (3.5-5.1) mEq/L Chloride (98-107) mEq/L Carbon Dioxide (21-32) mEq/L Anion Gap (5-15) BUN (7-18) mg/dL Creatinine (0.55-1.02) mg/dL Est Cr Clr Drug Dosing mL/min Estimated GFR (MDRD) (>60) mL/min BUN/Creatinine Ratio (14-18) Glucose (74-106) mg/dL POC Glucose 58 L 58 L (70-105) mg/dL Hemoglobin A1c (4.50-6.20) % Calcium (8.5-10.1) mg/dL Magnesium (1.8-2.4) mg/dl Total Bilirubin (0.2-1.0) mg/dL AST (15-37) U/L ALT (14-59) U/L Alkaline Phosphatase (46-116) U/L Troponin I (0.00-0.056) ng/mL Total Protein (6.4-8.2) g/dl Albumin (3.4-5.0) g/dl Globulin gm/dL Albumin/Globulin Ratio (1-2) Lipase (73-393) U/L Urine Color (Yellow) Urine Appearance (Clear) Urine pH (5.0-8.0) Ur Specific Rake (1.005-1.030) Urine Protein (Negative) Urine Glucose (UA) (Negative) Urine Ketones (Negative) Urine Occult Blood (Negative) Urine Nitrite (Negative) Urine Bilirubin (Negative) Urine Urobilinogen (0.2-1.0) Ur Leukocyte Esterase (Negative) U Hyaline Cast (Auto) (0-5) /lpf Urine RBC (0-5) /hpf Urine WBC (0-5) /hpf Ur Squamous Epith Cells (0-5) /hpf Urine Bacteria (FEW) /hpf Urine Mucus (FEW) /hpf Urine Opiates Screen (JJDEUQ=987) Ur Buprenorphine Scrn (CUTOFF=10) Ur Oxycodone Screen (XET4PO=381) Urine Methadone Screen (XTIWTI=443) Ur Propoxyphene Screen (FFYGVB=021) Ur Barbiturates Screen (PMKACU=021) Valproic Acid (50.0-100.0) ug/mL Ur Tricyclics Screen (GLJTKO=226) Ur Phencyclidine Scrn (CUTOFF=25) Ur Amphetamine Screen (YAVSKD=081) U Methamphetamines Scrn (GTAGWZ=416) U Benzodiazepines Scrn (ODXWJF=909) U Cocaine Metab Screen (IRFLSN=921) U Marijuana (THC) Screen (CUTOFF=50) Ethyl Alcohol (0.00) gm% 12/16/19 12/16/19 12/16/19 Range/Units 23:03 23:16 23:16 WBC (3.98-10.04) K/mm3 RBC (3.98-5.22) M/mm3 Hgb (11.2-15.7) gm/dl Hct (34.1-44.9) % MCV (79.4-94.8) fl MCH (25.6-32.2) pg MCHC (32.2-35.5) g/dl RDW Std Deviation (36.4-46.3) fL Plt Count (182-369) K/mm3 MPV (9.4-12.3) fl Neut % (Auto) (34.0-71.1) % Lymph % (Auto) (19.3-51.7) % [place] % (Auto) (4.7-12.5) % Eos % (Auto) (0.7-5.8) Baso % (Auto) (0.1-1.2) % Neut # (Auto) (1.56-6.13) K/mm3 Lymph # (Auto) (1.18-3.74) K/mm3 [place] # (Auto) (0.24-0.36) K/mm3 Eos # (Auto) (0.04-0.36) K/mm3 Baso # (Auto) (0.01-0.08) K/mm3 Neutrophils % (Manual) (40-60) % Band Neutrophils % (0-10) % Lymphocytes % (Manual) (20-40) % Atypical Lymphs % % Monocytes % (Manual) (2-10) % Eosinophils % (Manual) (0.7-5.8) % Basophils % (Manual) (0.1-1.2) Platelet Estimate Target Cells Tear Drop Cells [place] Cells RBC Morph Comment Sodium (136-145) mEq/L Potassium (3.5-5.1) mEq/L Chloride (98-107) mEq/L Carbon Dioxide (21-32) mEq/L Anion Gap (5-15) BUN (7-18) mg/dL Creatinine (0.55-1.02) mg/dL Est Cr Clr Drug Dosing mL/min Estimated GFR (MDRD) (>60) mL/min BUN/Creatinine Ratio (14-18) Glucose (74-106) mg/dL POC Glucose 63 L (70-105) mg/dL Hemoglobin A1c (4.50-6.20) % Calcium (8.5-10.1) mg/dL Magnesium (1.8-2.4) mg/dl Total Bilirubin (0.2-1.0) mg/dL AST (15-37) U/L ALT (14-59) U/L Alkaline Phosphatase (46-116) U/L Troponin I (0.00-0.056) ng/mL Total Protein (6.4-8.2) g/dl Albumin (3.4-5.0) g/dl Globulin gm/dL Albumin/Globulin Ratio (1-2) Lipase (73-393) U/L Urine Color Yellow (Yellow) Urine Appearance Clear (Clear) Urine pH 6.5 (5.0-8.0) Ur Specific [place]ake 1.015 (1.005-1.030) Urine Protein Negative (Negative) Urine Glucose (UA) Trace H (Negative) Urine Ketones Negative (Negative) Urine Occult Blood Trace-intact H (Negative) Urine Nitrite Negative (Negative) Urine Bilirubin Negative (Negative) Urine Urobilinogen 0.2 (0.2-1.0) Ur Leukocyte Esterase Negative (Negative) U Hyaline Cast (Auto) 0-5 (0-5) /lpf Urine RBC 0-5 (0-5) /hpf Urine WBC Not seen (0-5) /hpf Ur Squamous Epith Cells 0-5 (0-5) /hpf Urine Bacteria Rare (FEW) /hpf Urine Mucus Rare (FEW) /hpf Urine Opiates Screen Negative (CNJVVO=165) Ur Buprenorphine Scrn Negative (CUTOFF=10) Ur Oxycodone Screen Negative (REH3QJ=826) Urine Methadone Screen Negative (ZQRIRF=149) Ur Propoxyphene Screen Negative (SUXWTJ=161) Ur Barbiturates Screen Negative (KSUZNS=884) Valproic Acid (50.0-100.0) ug/mL Ur Tricyclics Screen Negative (XQAZPA=382) Ur Phencyclidine Scrn Negative (CUTOFF=25) Ur Amphetamine Screen Presumptive positive H (PMASAI=937) U Methamphetamines Scrn Negative (TWLQGI=880) U Benzodiazepines Scrn Negative (FCGANQ=571) U Cocaine Metab Screen Negative (NGVKUW=379) U Marijuana (THC) Screen Negative (CUTOFF=50) Ethyl Alcohol (0.00) gm% 12/16/19 12/17/19 12/17/19 Range/Units 23:21 00:13 00:35 WBC (3.98-10.04) K/mm3 RBC (3.98-5.22) M/mm3 Hgb (11.2-15.7) gm/dl Hct (34.1-44.9) % MCV (79.4-94.8) fl MCH (25.6-32.2) pg MCHC (32.2-35.5) g/dl RDW Std Deviation (36.4-46.3) fL Plt Count (182-369) K/mm3 MPV (9.4-12.3) fl Neut % (Auto) (34.0-71.1) % Lymph % (Auto) (19.3-51.7) % [place] % (Auto) (4.7-12.5) % Eos % (Auto) (0.7-5.8) Baso % (Auto) (0.1-1.2) % Neut # (Auto) (1.56-6.13) K/mm3 Lymph # (Auto) (1.18-3.74) K/mm3 [place] # (Auto) (0.24-0.36) K/mm3 Eos # (Auto) (0.04-0.36) K/mm3 Baso # (Auto) (0.01-0.08) K/mm3 Neutrophils % (Manual) (40-60) % Band Neutrophils % (0-10) % Lymphocytes % (Manual) (20-40) % Atypical Lymphs % % Monocytes % (Manual) (2-10) % Eosinophils % (Manual) (0.7-5.8) % Basophils % (Manual) (0.1-1.2) Platelet Estimate Target Cells Tear Drop Cells [place] Cells RBC Morph Comment Sodium (136-145) mEq/L Potassium (3.5-5.1) mEq/L Chloride (98-107) mEq/L Carbon Dioxide (21-32) mEq/L Anion Gap (5-15) BUN (7-18) mg/dL Creatinine (0.55-1.02) mg/dL Est Cr Clr Drug Dosing mL/min Estimated GFR (MDRD) (>60) mL/min BUN/Creatinine Ratio (14-18) Glucose (74-106) mg/dL POC Glucose 92 77 160 H (70-105) mg/dL Hemoglobin A1c (4.50-6.20) % Calcium (8.5-10.1) mg/dL Magnesium (1.8-2.4) mg/dl Total Bilirubin (0.2-1.0) mg/dL AST (15-37) U/L ALT (14-59) U/L Alkaline Phosphatase (46-116) U/L Troponin I (0.00-0.056) ng/mL Total Protein (6.4-8.2) g/dl Albumin (3.4-5.0) g/dl Globulin gm/dL Albumin/Globulin Ratio (1-2) Lipase (73-393) U/L Urine Color (Yellow) Urine Appearance (Clear) Urine pH (5.0-8.0) Ur Specific [place]ake (1.005-1.030) Urine Protein (Negative) Urine Glucose (UA) (Negative) Urine Ketones (Negative) Urine Occult Blood (Negative) Urine Nitrite (Negative) Urine Bilirubin (Negative) Urine Urobilinogen (0.2-1.0) Ur Leukocyte Esterase (Negative) U Hyaline Cast (Auto) (0-5) /lpf Urine RBC (0-5) /hpf Urine WBC (0-5) /hpf Ur Squamous Epith Cells (0-5) /hpf Urine Bacteria (FEW) /hpf Urine Mucus (FEW) /hpf Urine Opiates Screen (EQJCTJ=240) Ur Buprenorphine Scrn (CUTOFF=10) Ur Oxycodone Screen (HRM6UB=464) Urine Methadone Screen (JOKBHT=942) Ur Propoxyphene Screen (DYKFWN=794) Ur Barbiturates Screen (AXEZGD=302) Valproic Acid (50.0-100.0) ug/mL Ur Tricyclics Screen (IUWIOT=041) Ur Phencyclidine Scrn (CUTOFF=25) Ur Amphetamine Screen (TXXYVR=716) U Methamphetamines Scrn (KSADDI=465) U Benzodiazepines Scrn (JSJHJB=786) U Cocaine Metab Screen (SSZGMQ=344) U Marijuana (THC) Screen (CUTOFF=50) Ethyl Alcohol (0.00) gm% 12/17/19 12/17/19 12/17/19 Range/Units 01:05 01:57 02:31 WBC (3.98-10.04) K/mm3 RBC (3.98-5.22) M/mm3 Hgb (11.2-15.7) gm/dl Hct (34.1-44.9) % MCV (79.4-94.8) fl MCH (25.6-32.2) pg MCHC (32.2-35.5) g/dl RDW Std Deviation (36.4-46.3) fL Plt Count (182-369) K/mm3 MPV (9.4-12.3) fl Neut % (Auto) (34.0-71.1) % Lymph % (Auto) (19.3-51.7) % [place] % (Auto) (4.7-12.5) % Eos % (Auto) (0.7-5.8) Baso % (Auto) (0.1-1.2) % Neut # (Auto) (1.56-6.13) K/mm3 Lymph # (Auto) (1.18-3.74) K/mm3 [place] # (Auto) (0.24-0.36) K/mm3 Eos # (Auto) (0.04-0.36) K/mm3 Baso # (Auto) (0.01-0.08) K/mm3 Neutrophils % (Manual) (40-60) % Band Neutrophils % (0-10) % Lymphocytes % (Manual) (20-40) % Atypical Lymphs % % Monocytes % (Manual) (2-10) % Eosinophils % (Manual) (0.7-5.8) % Basophils % (Manual) (0.1-1.2) Platelet Estimate Target Cells Tear Drop Cells [place] Cells RBC Morph Comment Sodium (136-145) mEq/L Potassium (3.5-5.1) mEq/L Chloride (98-107) mEq/L Carbon Dioxide (21-32) mEq/L Anion Gap (5-15) BUN (7-18) mg/dL Creatinine (0.55-1.02) mg/dL Est Cr Clr Drug Dosing mL/min Estimated GFR (MDRD) (>60) mL/min BUN/Creatinine Ratio (14-18) Glucose (74-106) mg/dL POC Glucose 143 H 74 89 (70-105) mg/dL Hemoglobin A1c (4.50-6.20) % Calcium (8.5-10.1) mg/dL Magnesium (1.8-2.4) mg/dl Total Bilirubin (0.2-1.0) mg/dL AST (15-37) U/L ALT (14-59) U/L Alkaline Phosphatase (46-116) U/L Troponin I (0.00-0.056) ng/mL Total Protein (6.4-8.2) g/dl Albumin (3.4-5.0) g/dl Globulin gm/dL Albumin/Globulin Ratio (1-2) Lipase (73-393) U/L Urine Color (Yellow) Urine Appearance (Clear) Urine pH (5.0-8.0) Ur Specific [place]ake (1.005-1.030) Urine Protein (Negative) Urine Glucose (UA) (Negative) Urine Ketones (Negative) Urine Occult Blood (Negative) Urine Nitrite (Negative) Urine Bilirubin (Negative) Urine Urobilinogen (0.2-1.0) Ur Leukocyte Esterase (Negative) U Hyaline Cast (Auto) (0-5) /lpf Urine RBC (0-5) /hpf Urine WBC (0-5) /hpf Ur Squamous Epith Cells (0-5) /hpf Urine Bacteria (FEW) /hpf Urine Mucus (FEW) /hpf Urine Opiates Screen (GKSLBQ=830) Ur Buprenorphine Scrn (CUTOFF=10) Ur Oxycodone Screen (JXJ0AM=258) Urine Methadone Screen (HJSIYO=403) Ur Propoxyphene Screen (VGXMBF=022) Ur Barbiturates Screen (LOWTON=454) Valproic Acid (50.0-100.0) ug/mL Ur Tricyclics Screen (FVJUPL=875) Ur Phencyclidine Scrn (CUTOFF=25) Ur Amphetamine Screen (WGBAHF=211) U Methamphetamines Scrn (CUZDIH=783) U Benzodiazepines Scrn (IONFZY=141) U Cocaine Metab Screen (ASCKHE=195) U Marijuana (THC) Screen (CUTOFF=50) Ethyl Alcohol (0.00) gm% 12/17/19 12/17/19 12/17/19 Range/Units 02:56 03:59 04:32 WBC (3.98-10.04) K/mm3 RBC (3.98-5.22) M/mm3 Hgb (11.2-15.7) gm/dl Hct (34.1-44.9) % MCV (79.4-94.8) fl MCH (25.6-32.2) pg MCHC (32.2-35.5) g/dl RDW Std Deviation (36.4-46.3) fL Plt Count (182-369) K/mm3 MPV (9.4-12.3) fl Neut % (Auto) (34.0-71.1) % Lymph % (Auto) (19.3-51.7) % [place] % (Auto) (4.7-12.5) % Eos % (Auto) (0.7-5.8) Baso % (Auto) (0.1-1.2) % Neut # (Auto) (1.56-6.13) K/mm3 Lymph # (Auto) (1.18-3.74) K/mm3 [place] # (Auto) (0.24-0.36) K/mm3 Eos # (Auto) (0.04-0.36) K/mm3 Baso # (Auto) (0.01-0.08) K/mm3 Neutrophils % (Manual) (40-60) % Band Neutrophils % (0-10) % Lymphocytes % (Manual) (20-40) % Atypical Lymphs % % Monocytes % (Manual) (2-10) % Eosinophils % (Manual) (0.7-5.8) % Basophils % (Manual) (0.1-1.2) Platelet Estimate Target Cells Tear Drop Cells [place] Cells RBC Morph Comment Sodium (136-145) mEq/L Potassium (3.5-5.1) mEq/L Chloride (98-107) mEq/L Carbon Dioxide (21-32) mEq/L Anion Gap (5-15) BUN (7-18) mg/dL Creatinine (0.55-1.02) mg/dL Est Cr Clr Drug Dosing mL/min Estimated GFR (MDRD) (>60) mL/min BUN/Creatinine Ratio (14-18) Glucose (74-106) mg/dL POC Glucose 91 55 L 127 H (70-105) mg/dL Hemoglobin A1c (4.50-6.20) % Calcium (8.5-10.1) mg/dL Magnesium (1.8-2.4) mg/dl Total Bilirubin (0.2-1.0) mg/dL AST (15-37) U/L ALT (14-59) U/L Alkaline Phosphatase (46-116) U/L Troponin I (0.00-0.056) ng/mL Total Protein (6.4-8.2) g/dl Albumin (3.4-5.0) g/dl Globulin gm/dL Albumin/Globulin Ratio (1-2) Lipase (73-393) U/L Urine Color (Yellow) Urine Appearance (Clear) Urine pH (5.0-8.0) Ur Specific Rake (1.005-1.030) Urine Protein (Negative) Urine Glucose (UA) (Negative) Urine Ketones (Negative) Urine Occult Blood (Negative) Urine Nitrite (Negative) Urine Bilirubin (Negative) Urine Urobilinogen (0.2-1.0) Ur Leukocyte Esterase (Negative) U Hyaline Cast (Auto) (0-5) /lpf Urine RBC (0-5) /hpf Urine WBC (0-5) /hpf Ur Squamous Epith Cells (0-5) /hpf Urine Bacteria (FEW) /hpf Urine Mucus (FEW) /hpf Urine Opiates Screen (LHBZYL=655) Ur Buprenorphine Scrn (CUTOFF=10) Ur Oxycodone Screen (OYG9IV=136) Urine Methadone Screen (TBRJTS=399) Ur Propoxyphene Screen (GTUDUA=467) Ur Barbiturates Screen (YHCSQN=356) Valproic Acid (50.0-100.0) ug/mL Ur Tricyclics Screen (NTESCX=062) Ur Phencyclidine Scrn (CUTOFF=25) Ur Amphetamine Screen (EGCZAS=426) U Methamphetamines Scrn (ZVWPYN=047) U Benzodiazepines Scrn (NKPKFQ=603) U Cocaine Metab Screen (ZVUYBM=629) U Marijuana (THC) Screen (CUTOFF=50) Ethyl Alcohol (0.00) gm% 12/17/19 12/17/19 12/17/19 Range/Units 05:04 05:25 05:25 WBC 4.24 (3.98-10.04) K/mm3 RBC 3.60 L (3.98-5.22) M/mm3 Hgb 9.6 L (11.2-15.7) gm/dl Hct 30.7 L (34.1-44.9) % MCV 85.3 (79.4-94.8) fl MCH 26.7 (25.6-32.2) pg MCHC 31.3 L (32.2-35.5) g/dl RDW Std Deviation 62.3 H (36.4-46.3) fL Plt Count 166 L (182-369) K/mm3 MPV 10.8 (9.4-12.3) fl Neut % (Auto) (34.0-71.1) % Lymph % (Auto) (19.3-51.7) % [place] % (Auto) (4.7-12.5) % Eos % (Auto) (0.7-5.8) Baso % (Auto) (0.1-1.2) % Neut # (Auto) (1.56-6.13) K/mm3 Lymph # (Auto) (1.18-3.74) K/mm3 [place] # (Auto) (0.24-0.36) K/mm3 Eos # (Auto) (0.04-0.36) K/mm3 Baso # (Auto) (0.01-0.08) K/mm3 Neutrophils % (Manual) 47 (40-60) % Band Neutrophils % 0 (0-10) % Lymphocytes % (Manual) 53 H (20-40) % Atypical Lymphs % 0 % Monocytes % (Manual) 0 L (2-10) % Eosinophils % (Manual) 0 L (0.7-5.8) % Basophils % (Manual) 0 L (0.1-1.2) Platelet Estimate Adequate Target Cells 1+ slight Tear Drop Cells 1+ slight [place] Cells 1+ slight RBC Morph Comment Not Reportable Sodium 131 L (136-145) mEq/L Potassium 4.6 D (3.5-5.1) mEq/L Chloride 101 (98-107) mEq/L Carbon Dioxide 24 (21-32) mEq/L Anion Gap 10.6 (5-15) BUN 15 (7-18) mg/dL Creatinine 0.9 (0.55-1.02) mg/dL Est Cr Clr Drug Dosing 64.56 mL/min Estimated GFR (MDRD) > 60 (>60) mL/min BUN/Creatinine Ratio 16.7 (14-18) Glucose 104 (74-106) mg/dL POC Glucose 106 H (70-105) mg/dL Hemoglobin A1c (4.50-6.20) % Calcium 8.1 L (8.5-10.1) mg/dL Magnesium 1.6 L (1.8-2.4) mg/dl Total Bilirubin (0.2-1.0) mg/dL AST (15-37) U/L ALT (14-59) U/L Alkaline Phosphatase (46-116) U/L Troponin I (0.00-0.056) ng/mL Total Protein (6.4-8.2) g/dl Albumin (3.4-5.0) g/dl Globulin gm/dL Albumin/Globulin Ratio (1-2) Lipase 213 (73-393) U/L Urine Color (Yellow) Urine Appearance (Clear) Urine pH (5.0-8.0) Ur Specific Rake (1.005-1.030) Urine Protein (Negative) Urine Glucose (UA) (Negative) Urine Ketones (Negative) Urine Occult Blood (Negative) Urine Nitrite (Negative) Urine Bilirubin (Negative) Urine Urobilinogen (0.2-1.0) Ur Leukocyte Esterase (Negative) U Hyaline Cast (Auto) (0-5) /lpf Urine RBC (0-5) /hpf Urine WBC (0-5) /hpf Ur Squamous Epith Cells (0-5) /hpf Urine Bacteria (FEW) /hpf Urine Mucus (FEW) /hpf Urine Opiates Screen (ZWQJIW=443) Ur Buprenorphine Scrn (CUTOFF=10) Ur Oxycodone Screen (GKB5HN=242) Urine Methadone Screen (SROGMP=181) Ur Propoxyphene Screen (IBGVOW=088) Ur Barbiturates Screen (YEAVHW=789) Valproic Acid (50.0-100.0) ug/mL Ur Tricyclics Screen (SQZJHQ=751) Ur Phencyclidine Scrn (CUTOFF=25) Ur Amphetamine Screen (AYDDYB=607) U Methamphetamines Scrn (XTVZVJ=548) U Benzodiazepines Scrn (WULGAP=975) U Cocaine Metab Screen (OOQLER=980) U Marijuana (THC) Screen (CUTOFF=50) Ethyl Alcohol (0.00) gm% 12/17/19 12/17/19 12/17/19 Range/Units 05:25 05:57 06:50 WBC (3.98-10.04) K/mm3 RBC (3.98-5.22) M/mm3 Hgb (11.2-15.7) gm/dl Hct (34.1-44.9) % MCV (79.4-94.8) fl MCH (25.6-32.2) pg MCHC (32.2-35.5) g/dl RDW Std Deviation (36.4-46.3) fL Plt Count (182-369) K/mm3 MPV (9.4-12.3) fl Neut % (Auto) (34.0-71.1) % Lymph % (Auto) (19.3-51.7) % [place] % (Auto) (4.7-12.5) % Eos % (Auto) (0.7-5.8) Baso % (Auto) (0.1-1.2) % Neut # (Auto) (1.56-6.13) K/mm3 Lymph # (Auto) (1.18-3.74) K/mm3 [place] # (Auto) (0.24-0.36) K/mm3 Eos # (Auto) (0.04-0.36) K/mm3 Baso # (Auto) (0.01-0.08) K/mm3 Neutrophils % (Manual) (40-60) % Band Neutrophils % (0-10) % Lymphocytes % (Manual) (20-40) % Atypical Lymphs % % Monocytes % (Manual) (2-10) % Eosinophils % (Manual) (0.7-5.8) % Basophils % (Manual) (0.1-1.2) Platelet Estimate Target Cells Tear Drop Cells Yosef Cells RBC Morph Comment Sodium (136-145) mEq/L Potassium (3.5-5.1) mEq/L Chloride (98-107) mEq/L Carbon Dioxide (21-32) mEq/L Anion Gap (5-15) BUN (7-18) mg/dL Creatinine (0.55-1.02) mg/dL Est Cr Clr Drug Dosing mL/min Estimated GFR (MDRD) (>60) mL/min BUN/Creatinine Ratio (14-18) Glucose (74-106) mg/dL POC Glucose 109 H 111 H (70-105) mg/dL Hemoglobin A1c 5.60 (4.50-6.20) % Calcium (8.5-10.1) mg/dL Magnesium (1.8-2.4) mg/dl Total Bilirubin (0.2-1.0) mg/dL AST (15-37) U/L ALT (14-59) U/L Alkaline Phosphatase (46-116) U/L Troponin I (0.00-0.056) ng/mL Total Protein (6.4-8.2) g/dl Albumin (3.4-5.0) g/dl Globulin gm/dL Albumin/Globulin Ratio (1-2) Lipase (73-393) U/L Urine Color (Yellow) Urine Appearance (Clear) Urine pH (5.0-8.0) Ur Specific Rake (1.005-1.030) Urine Protein (Negative) Urine Glucose (UA) (Negative) Urine Ketones (Negative) Urine Occult Blood (Negative) Urine Nitrite (Negative) Urine Bilirubin (Negative) Urine Urobilinogen (0.2-1.0) Ur Leukocyte Esterase (Negative) U Hyaline Cast (Auto) (0-5) /lpf Urine RBC (0-5) /hpf Urine WBC (0-5) /hpf Ur Squamous Epith Cells (0-5) /hpf Urine Bacteria (FEW) /hpf Urine Mucus (FEW) /hpf Urine Opiates Screen (OJMMPF=200) Ur Buprenorphine Scrn (CUTOFF=10) Ur Oxycodone Screen (DWV5FJ=561) Urine Methadone Screen (WUPWPZ=429) Ur Propoxyphene Screen (IUAVYG=837) Ur Barbiturates Screen (ILYKVE=190) Valproic Acid (50.0-100.0) ug/mL Ur Tricyclics Screen (JHGJQX=775) Ur Phencyclidine Scrn (CUTOFF=25) Ur Amphetamine Screen (MZIMSQ=055) U Methamphetamines Scrn (IIDFAZ=622) U Benzodiazepines Scrn (VSHGUD=284) U Cocaine Metab Screen (RFCHWF=377) U Marijuana (THC) Screen (CUTOFF=50) Ethyl Alcohol (0.00) gm% 12/17/19 12/17/19 12/17/19 Range/Units 08:33 09:33 10:22 WBC (3.98-10.04) K/mm3 RBC (3.98-5.22) M/mm3 Hgb (11.2-15.7) gm/dl Hct (34.1-44.9) % MCV (79.4-94.8) fl MCH (25.6-32.2) pg MCHC (32.2-35.5) g/dl RDW Std Deviation (36.4-46.3) fL Plt Count (182-369) K/mm3 MPV (9.4-12.3) fl Neut % (Auto) (34.0-71.1) % Lymph % (Auto) (19.3-51.7) % [place] % (Auto) (4.7-12.5) % Eos % (Auto) (0.7-5.8) Baso % (Auto) (0.1-1.2) % Neut # (Auto) (1.56-6.13) K/mm3 Lymph # (Auto) (1.18-3.74) K/mm3 [place] # (Auto) (0.24-0.36) K/mm3 Eos # (Auto) (0.04-0.36) K/mm3 Baso # (Auto) (0.01-0.08) K/mm3 Neutrophils % (Manual) (40-60) % Band Neutrophils % (0-10) % Lymphocytes % (Manual) (20-40) % Atypical Lymphs % % Monocytes % (Manual) (2-10) % Eosinophils % (Manual) (0.7-5.8) % Basophils % (Manual) (0.1-1.2) Platelet Estimate Target Cells Tear Drop Cells Yosef Cells RBC Morph Comment Sodium (136-145) mEq/L Potassium (3.5-5.1) mEq/L Chloride (98-107) mEq/L Carbon Dioxide (21-32) mEq/L Anion Gap (5-15) BUN (7-18) mg/dL Creatinine (0.55-1.02) mg/dL Est Cr Clr Drug Dosing mL/min Estimated GFR (MDRD) (>60) mL/min BUN/Creatinine Ratio (14-18) Glucose (74-106) mg/dL POC Glucose 102 110 H 61 L (70-105) mg/dL Hemoglobin A1c (4.50-6.20) % Calcium (8.5-10.1) mg/dL Magnesium (1.8-2.4) mg/dl Total Bilirubin (0.2-1.0) mg/dL AST (15-37) U/L ALT (14-59) U/L Alkaline Phosphatase (46-116) U/L Troponin I (0.00-0.056) ng/mL Total Protein (6.4-8.2) g/dl Albumin (3.4-5.0) g/dl Globulin gm/dL Albumin/Globulin Ratio (1-2) Lipase (73-393) U/L Urine Color (Yellow) Urine Appearance (Clear) Urine pH (5.0-8.0) Ur Specific Rake (1.005-1.030) Urine Protein (Negative) Urine Glucose (UA) (Negative) Urine Ketones (Negative) Urine Occult Blood (Negative) Urine Nitrite (Negative) Urine Bilirubin (Negative) Urine Urobilinogen (0.2-1.0) Ur Leukocyte Esterase (Negative) U Hyaline Cast (Auto) (0-5) /lpf Urine RBC (0-5) /hpf Urine WBC (0-5) /hpf Ur Squamous Epith Cells (0-5) /hpf Urine Bacteria (FEW) /hpf Urine Mucus (FEW) /hpf Urine Opiates Screen (PEVJIY=270) Ur Buprenorphine Scrn (CUTOFF=10) Ur Oxycodone Screen (DSY5JZ=157) Urine Methadone Screen (DAJDOG=008) Ur Propoxyphene Screen (LMOSCS=328) Ur Barbiturates Screen (HEFPGY=417) Valproic Acid (50.0-100.0) ug/mL Ur Tricyclics Screen (TJRKOK=757) Ur Phencyclidine Scrn (CUTOFF=25) Ur Amphetamine Screen (PKGPHX=575) U Methamphetamines Scrn (VWBSGN=320) U Benzodiazepines Scrn (UHSUZR=935) U Cocaine Metab Screen (GZJWJE=756) U Marijuana (THC) Screen (CUTOFF=50) Ethyl Alcohol (0.00) gm% 12/17/19 12/17/19 12/17/19 Range/Units 10:58 12:09 12:38 WBC (3.98-10.04) K/mm3 RBC (3.98-5.22) M/mm3 Hgb (11.2-15.7) gm/dl Hct (34.1-44.9) % MCV (79.4-94.8) fl MCH (25.6-32.2) pg MCHC (32.2-35.5) g/dl RDW Std Deviation (36.4-46.3) fL Plt Count (182-369) K/mm3 MPV (9.4-12.3) fl Neut % (Auto) (34.0-71.1) % Lymph % (Auto) (19.3-51.7) % [place] % (Auto) (4.7-12.5) % Eos % (Auto) (0.7-5.8) Baso % (Auto) (0.1-1.2) % Neut # (Auto) (1.56-6.13) K/mm3 Lymph # (Auto) (1.18-3.74) K/mm3 [place] # (Auto) (0.24-0.36) K/mm3 Eos # (Auto) (0.04-0.36) K/mm3 Baso # (Auto) (0.01-0.08) K/mm3 Neutrophils % (Manual) (40-60) % Band Neutrophils % (0-10) % Lymphocytes % (Manual) (20-40) % Atypical Lymphs % % Monocytes % (Manual) (2-10) % Eosinophils % (Manual) (0.7-5.8) % Basophils % (Manual) (0.1-1.2) Platelet Estimate Target Cells Tear Drop Cells [place] Cells RBC Morph Comment Sodium (136-145) mEq/L Potassium (3.5-5.1) mEq/L Chloride (98-107) mEq/L Carbon Dioxide (21-32) mEq/L Anion Gap (5-15) BUN (7-18) mg/dL Creatinine (0.55-1.02) mg/dL Est Cr Clr Drug Dosing mL/min Estimated GFR (MDRD) (>60) mL/min BUN/Creatinine Ratio (14-18) Glucose (74-106) mg/dL POC Glucose 124 H 63 L 119 H (70-105) mg/dL Hemoglobin A1c (4.50-6.20) % Calcium (8.5-10.1) mg/dL Magnesium (1.8-2.4) mg/dl Total Bilirubin (0.2-1.0) mg/dL AST (15-37) U/L ALT (14-59) U/L Alkaline Phosphatase (46-116) U/L Troponin I (0.00-0.056) ng/mL Total Protein (6.4-8.2) g/dl Albumin (3.4-5.0) g/dl Globulin gm/dL Albumin/Globulin Ratio (1-2) Lipase (73-393) U/L Urine Color (Yellow) Urine Appearance (Clear) Urine pH (5.0-8.0) Ur Specific Rake (1.005-1.030) Urine Protein (Negative) Urine Glucose (UA) (Negative) Urine Ketones (Negative) Urine Occult Blood (Negative) Urine Nitrite (Negative) Urine Bilirubin (Negative) Urine Urobilinogen (0.2-1.0) Ur Leukocyte Esterase (Negative) U Hyaline Cast (Auto) (0-5) /lpf Urine RBC (0-5) /hpf Urine WBC (0-5) /hpf Ur Squamous Epith Cells (0-5) /hpf Urine Bacteria (FEW) /hpf Urine Mucus (FEW) /hpf Urine Opiates Screen (ZTTOMR=388) Ur Buprenorphine Scrn (CUTOFF=10) Ur Oxycodone Screen (JZN9WV=338) Urine Methadone Screen (BVVZJN=487) Ur Propoxyphene Screen (PUDLRW=012) Ur Barbiturates Screen (DBJUOB=550) Valproic Acid (50.0-100.0) ug/mL Ur Tricyclics Screen (JVLSHQ=853) Ur Phencyclidine Scrn (CUTOFF=25) Ur Amphetamine Screen (UFBBXF=040) U Methamphetamines Scrn (EMDWCY=731) U Benzodiazepines Scrn (YRBPNU=191) U Cocaine Metab Screen (EEHSOQ=857) U Marijuana (THC) Screen (CUTOFF=50) Ethyl Alcohol (0.00) gm% Med Orders - Current: Current Medications Acetaminophen (Tylenol) 650 mg PO Q6H PRN PRN Reason: Headache/Pain Last Admin: 12/17/19 10:11 Dose: 650 mg Clonazepam (Klonopin) 1 mg PO TID [facility] Last Admin: 12/17/19 08:39 Dose: 1 mg Clonidine HCl (Catapres) 0.1 mg PO BEDTIME PRN PRN Reason: Sleep Dextrose/Water (Dextrose 50% In Water) 50 ml IVPUSH ASDIRECTED PRN PRN Reason: Hypoglycemia Last Admin: 12/17/19 12:14 Dose: 25 ml Divalproex Sodium (Depakote) 500 mg PO BID [facility] Last Admin: 12/17/19 10:11 Dose: 500 mg Gabapentin (Neurontin) 600 mg PO TID [facility] Last Admin: 12/17/19 08:39 Dose: 600 mg Sodium Chloride (Normal Saline) 1,000 mls @ 1,000 mls/hr IV .BOLUS [facility] Last Admin: 12/16/19 20:37 Dose: 1,000 mls/hr Magnesium Sulfate 4 gm/ Premix 50 mls @ 12.5 mls/hr IV ONETIME ONE Stop: 12/17/19 13:02 Last Admin: 12/17/19 10:13 Dose: 12.5 mls/hr Dextrose/Sodium Chloride (Dextrose 5%-Normal Saline) 1,000 mls @ 150 mls/hr IV CONTINUOUS [facility] Last Admin: 12/17/19 12:00 Dose: 150 mls/hr Loperamide HCl (Imodium) 2 mg PO Q2H PRN PRN Reason: Diarrhea Miscellaneous Information (Remove Patch) 1 ea TRDERM DAILY [facility] Last Admin: 12/17/19 08:41 Dose: Not Given Nicotine (Habitrol) 21 mg TRDERM DAILY [facility] Last Admin: 12/17/19 08:39 Dose: 21 mg Pantoprazole Sodium (Protonix) 40 mg PO ACBREAKFAST [facility] Last Admin: 12/17/19 07:07 Dose: 40 mg Paroxetine HCl (Paxil) 40 mg PO DAILY [facility] Last Admin: 12/17/19 08:39 Dose: 40 mg Sodium Chloride (Saline Flush) 10 ml FLUSH ASDIRECTED PRN PRN Reason: Keep Vein Open Last Admin: 12/16/19 20:50 Dose: 10 ml Sumatriptan Succinate (Imitrex) 100 mg PO ASDIRECTED PRN PRN Reason: MIGRAINE Last Admin: 12/17/19 12:23 Dose: 100 mg Discontinued Medications Dextrose/Water (Dextrose 50% In Water) Confirm Administered Dose 50 ml .ROUTE .STK-MED ONE Stop: 12/17/19 00:26 Last Admin: 12/17/19 00:30 Dose: Not Given Divalproex Sodium (Depakote Er) 500 mg PO BID [facility] Last Admin: 12/17/19 10:45 Dose: Not Given Potassium Chloride 10 meq/ (Premix) 100 mls @ 100 mls/hr IV Q1H [facility] Stop: 12/17/19 01:29 Last Admin: 12/17/19 01:42 Dose: 100 mls/hr Sodium Chloride (Normal Saline) 1,000 mls @ 1,000 mls/hr IV ONETIME ONE Stop: 12/16/19 22:34 Last Admin: 12/16/19 21:40 Dose: 1,000 mls/hr Dextrose/Water (Dextrose 5% In Water) 1,000 mls @ 1,000 mls/hr IV ASDIRECTED [facility] Last Admin: 12/16/19 21:58 Dose: 1,000 mls/hr Dextrose/Water (Dextrose 5% In Water) 1,000 mls @ 150 mls/hr IV ASDIRECTED JODI Last Admin: 12/17/19 00:28 Dose: 150 mls/hr Dextrose/Water (Dextrose 10% In Water) 1,000 mls @ 150 mls/hr IV ASDIRECTED JODI Last Admin: 12/17/19 04:23 Dose: 150 mls/hr Dextrose/Water (Dextrose 10% In Water) Confirm Administered Dose 1,000 mls @ as directed .ROUTE .STK-MED ONE Stop: 12/17/19 04:20 Last Admin: 12/17/19 04:37 Dose: Not Given Dextrose/Water (Dextrose 10% In Water) 1,000 mls @ 150 mls/hr IV CONTINUOUS JODI Loperamide HCl (Imodium) 4 mg PO ONETIME ONE Stop: 12/17/19 09:46 Last Admin: 12/17/19 10:33 Dose: 4 mg - Exam General: Alert, Oriented HEENT: Pupils Equal, Mucous Membr. Moist/[place] Neck: Supple Lungs: Clear to Auscultation, Normal Respiratory Effort Cardiovascular: Regular Rate, Regular Rhythm GI/Abdominal Exam: Normal Bowel Sounds, Soft, Non-Tender, No Distention Back Exam: Normal Inspection, Full Range of Motion Extremities: Normal Inspection, Normal Range of Motion, Non-Tender, No Pedal Edema Skin: Warm, Dry, Intact Psy/Mental Status: Alert, Normal Affect, Normal Mood Sepsis Event Note - Evaluation Sepsis Screening Result: No Definite Risk - Focused Exam Vital Signs: Vital Signs Temp Pulse Resp BP BP Pulse Ox 12/17/19 12:00 98.3 F 20 120/74 100 12/17/19 08:00 98.5 F 19 128/76 100 12/17/19 04:00 97.9 F 72 14 99/60 95 Date Exam was Performed: 12/17/19 Time Exam was Performed: 12:58 - Problem List Review Problem List Initiated/Reviewed/Updated: Yes - My Orders Last 24 Hours: My Active Orders 12/17/19 00:14 Dextrose 50% in Water 50 ml IVPUSH ASDIRECTED PRN 12/17/19 00:49 Code Status [Resuscitation Status] Routine 12/17/19 00:55 Activity as Tolerated [RC] .Routine 12/17/19 05:25 CXR [Chest 1V Frontal] [CR] Routine C-PEPTIDE, SERUM [REF] Routine CORTISOL [REF] Routine INSULIN [REF] Routine 12/17/19 06:00 Pantoprazole [ProTONIX] 40 mg PO ACBREAKFAST 12/17/19 06:21 cloNIDine [Catapres] 0.1 mg PO BEDTIME PRN 12/17/19 08:50 Acetaminophen [Tylenol] 650 mg PO Q6H PRN 12/17/19 09:00 ClonazePAM [KlonoPIN] 1 mg PO TID Divalproex Sodium [Depakote] 500 mg PO BID Gabapentin [Neurontin] 600 mg PO TID Nicotine [Habitrol] 21 mg TRDERM DAILY PARoxetine [Paxil] 40 mg PO DAILY Remove Patch 1 ea TRDERM DAILY 12/17/19 09:03 Magnesium Sulfate/Water [Magnesium Sulfate in Water Premix] 4 gm Premix Bag 1 bag IV ONETIME 12/17/19 10:15 Loperamide [Imodium] 2 mg PO Q2H PRN 12/17/19 11:45 Dextrose 5%-0.9% NaCl [Dextrose 5%-Normal Saline] 1,000 ml IV CONTINUOUS 12/17/19 12:14 SUMAtriptan Succinate [Imitrex] 100 mg PO ASDIRECTED PRN 12/17/19 Breakfast Regular Diet [DIET] - Plan Plan:: Assessment * Hypoglycemia of unknown cause * Blood sugar at the scene by EMS was 59 and [id number] in the emergency room was 76. Initial chemistry glucose of 47. * Given juice, D5 saline and transferred to the ICU for observation. * History of gastric bypass surgery in 2007 * To poor oral intake over the last couple of days * Took her 's phentermine 30 mg half capsule for couple of days prior to admission, but not the day of admission * Positive amphetamine on urine drug screen possibly due to phentermine * Previous episode of hypoglycemia and admitted in June 2019 * Denies using any insulin or hypoglycemic agent * Continues to have hypoglycemia after over 17 hours of treatment with D5 and D10 fluids * Hypotension * Initial blood pressures of 70s and 80s systolic * Resolved with fluid bolus * Held both chlorthalidone and losartan * Anxiety and depression * Multiple medications, but none that cause hypoglycemia * Paxil, clonidine, clonazepam, Depakote * Seizure disorder * Possible seizure on evening of admission * Possibly secondary to hypoglycemia versus seizure causing hypoglycemia * Home meds include gabapentin, clonazepam, Depakote * Hypertension * Home meds include chlorthalidone and losartan -held * Hyponatremia * Likely secondary to IV fluids * Hypokalemia * Potassium 2.9-->4.6 * Likely secondary to chlorthalidone and poor oral intake * Hypomagnesemia * Magnesium 1.7-->1.6 Plan * Admit to ICU for close observation * D5 normal saline at 150 mL an hour * Normal diet * Monitor blood sugars every hour * Continue home medications * Get C-peptide and insulin level -unfortunately these are send out and will not be available during this hospitalization * Supplement magnesium and recheck in the morning * Recheck BMP this afternoon and in the morning * Encouraged not to use phentermine in the future. * She would benefit from dietary consult, but not available on the weekend. * VTE prophylaxis with SCDs and early ambulation * CODE STATUS: Full code
--- NOTE | 2019-12-17 16:33 | CR ---
Chest: Portable view of the chest was obtained. Comparison: Prior chest x-ray of 07/31/18. Heart size is normal. Tortuous thoracic aorta is noted. Mild scoliosis is noted within the spine. No acute parenchymal change is seen. Impression: 1. Findings as noted above. Nothing acute is appreciated. Diagnostic code #2 This report was dictated in [place] Standard Time I agree with preliminary report from [facility], finalized on 12/17/19, 6:58 AM Central Time
--- NOTE | 2019-12-17 16:33 | CT ---
Head CT Technique: Multiple axial sections through the brain were obtained. Intravenous contrast was not utilized. Comparison: No prior intracranial imaging is available. Findings: Ventricles along with basal cisterns and sulci over the convexities are mildly prominent. No abnormal parenchymal densities are seen. No evidence of intracranial hemorrhage. No midline shift or mass-effect is seen. No discrete calvarial abnormality is appreciated. Minimal areas of mucosal thickening are seen within the ethmoid sinuses. No acute paranasal sinus findings are otherwise seen. Mastoid sinuses that are seen appear clear. Impression: 1. Mild generalized atrophy. 2. Minimal ethmoid sinus findings believed to be chronic. 3. No acute intracranial abnormality is appreciated. Diagnostic code #2 This report was dictated in [place] Standard Time I agree with preliminary report from [facility], finalized on 12/16/19, 10:06 PM Central Time
[2019-12-17] MEDS ORDERED: traZODone 50 MG Tab PO ONE (20:11)
[2019-12-17] MEDS: cloNIDine 0.1 MG Tab PO PRN (20:21)
[2019-12-17] MEDS: Dextrose 10% in Water 1,000 ML IV SCH (22:33)
[2019-12-18] MEDS: Dextrose 10% in Water 1,000 ML IV SCH (05:09)
[2019-12-18] MEDS: Pantoprazole 40 MG Tab.CR PO SCH (05:10)
[2019-12-18] MEDS ORDERED: Dextrose 10% in Water 1,000 ML IV SCH (08:08)
[2019-12-18] MEDS: Nicotine 21 MG/24 Hr Patch TRDERM SCH (08:54)
[2019-12-18] MEDS: Divalproex Sodium Delayed-Release 500 MG Tab.CR PO SCH ×2 (08:55→20:02)
[2019-12-18] MEDS: ClonazePAM 1 MG Tab PO SCH ×3 (08:55→20:02)
[2019-12-18] MEDS: Gabapentin 600 MG Tab PO SCH ×3 (08:55→20:02)
[2019-12-18] MEDS: PARoxetine 20 MG Tab PO SCH (08:56)
[2019-12-18] MEDS: Acetaminophen 325 MG Tab PO PRN ×2 (09:35→16:20)
[2019-12-18] MEDS: 50% Dextrose in Water 50 ML Syringe IVPUSH PRN (11:02)
--- NOTE | 2019-12-18 17:41 | PCM.PN ---
- General Info Date of Service: 12/18/19 Admission Dx/Problem (Free Text): Hypotension, hypoglycemia Subjective Update: Patient continues to have labile blood sugars. She states she is feeling well overall. Tolerating diet. - Review of Systems General: Reports: No Symptoms HEENT: Reports: No Symptoms Pulmonary: Reports: No Symptoms Cardiovascular: Reports: No Symptoms Gastrointestinal: Reports: No Symptoms Musculoskeletal: Reports: No Symptoms Neurological: Reports: No Symptoms - Patient Data Vitals - Most Recent: Last Vital Signs Temp 98.9 F 12/18/19 16:00 Pulse 52 L 12/18/19 04:00 Resp 18 12/18/19 16:00 BP 116/76 12/18/19 16:00 Pulse Ox 96 12/18/19 16:00 Weight - Most Recent: 156 lb 14.4 oz I&O - Last 24 Hours: Intake & Output 12/18/19 12/18/19 12/18/19 06:59 14:59 22:59 Intake Total 0503 812 7787 Balance 5942 519 3786 Lab Results Last 24 Hours: Laboratory Results - last 24 hr 12/17/19 12/17/19 12/17/19 Range/Units 05:25 17:20 18:19 WBC (3.98-10.04) K/mm3 RBC (3.98-5.22) M/mm3 Hgb (11.2-15.7) gm/dl Hct (34.1-44.9) % MCV (79.4-94.8) fl MCH (25.6-32.2) pg MCHC (32.2-35.5) g/dl RDW Std Deviation (36.4-46.3) fL Plt Count (182-369) K/mm3 MPV (9.4-12.3) fl Neut % (Auto) (34.0-71.1) % Lymph % (Auto) (19.3-51.7) % [place] % (Auto) (4.7-12.5) % Eos % (Auto) (0.7-5.8) Baso % (Auto) (0.1-1.2) % Neut # (Auto) (1.56-6.13) K/mm3 Lymph # (Auto) (1.18-3.74) K/mm3 [place] # (Auto) (0.24-0.36) K/mm3 Eos # (Auto) (0.04-0.36) K/mm3 Baso # (Auto) (0.01-0.08) K/mm3 Sodium (136-145) mEq/L Potassium (3.5-5.1) mEq/L Chloride (98-107) mEq/L Carbon Dioxide (21-32) mEq/L Anion Gap (5-15) BUN (7-18) mg/dL Creatinine (0.55-1.02) mg/dL Est Cr Clr Drug Dosing mL/min Estimated GFR (MDRD) (>60) mL/min BUN/Creatinine Ratio (14-18) Glucose (74-106) mg/dL POC Glucose 88 104 (70-105) mg/dL Calcium (8.5-10.1) mg/dL Magnesium (1.8-2.4) mg/dl Iron (50-170) ug/dL TIBC (100-400) ug/dL % Saturation (20-55) % Transferrin (202-364) mg/dL Ferritin (8-252) ng/ml Vitamin B12 (193-986) pg/ml Cortisol 8.2 ug/dL 12/17/19 12/17/19 12/17/19 Range/Units 18:59 20:18 21:06 WBC (3.98-10.04) K/mm3 RBC (3.98-5.22) M/mm3 Hgb (11.2-15.7) gm/dl Hct (34.1-44.9) % MCV (79.4-94.8) fl MCH (25.6-32.2) pg MCHC (32.2-35.5) g/dl RDW Std Deviation (36.4-46.3) fL Plt Count (182-369) K/mm3 MPV (9.4-12.3) fl Neut % (Auto) (34.0-71.1) % Lymph % (Auto) (19.3-51.7) % [place] % (Auto) (4.7-12.5) % Eos % (Auto) (0.7-5.8) Baso % (Auto) (0.1-1.2) % Neut # (Auto) (1.56-6.13) K/mm3 Lymph # (Auto) (1.18-3.74) K/mm3 [place] # (Auto) (0.24-0.36) K/mm3 Eos # (Auto) (0.04-0.36) K/mm3 Baso # (Auto) (0.01-0.08) K/mm3 Sodium (136-145) mEq/L Potassium (3.5-5.1) mEq/L Chloride (98-107) mEq/L Carbon Dioxide (21-32) mEq/L Anion Gap (5-15) BUN (7-18) mg/dL Creatinine (0.55-1.02) mg/dL Est Cr Clr Drug Dosing mL/min Estimated GFR (MDRD) (>60) mL/min BUN/Creatinine Ratio (14-18) Glucose (74-106) mg/dL POC Glucose 127 H 83 69 L (70-105) mg/dL Calcium (8.5-10.1) mg/dL Magnesium (1.8-2.4) mg/dl Iron (50-170) ug/dL TIBC (100-400) ug/dL % Saturation (20-55) % Transferrin (202-364) mg/dL Ferritin (8-252) ng/ml Vitamin B12 (193-986) pg/ml Cortisol ug/dL 12/17/19 12/17/19 12/17/19 Range/Units 21:22 22:03 23:10 WBC (3.98-10.04) K/mm3 RBC (3.98-5.22) M/mm3 Hgb (11.2-15.7) gm/dl Hct (34.1-44.9) % MCV (79.4-94.8) fl MCH (25.6-32.2) pg MCHC (32.2-35.5) g/dl RDW Std Deviation (36.4-46.3) fL Plt Count (182-369) K/mm3 MPV (9.4-12.3) fl Neut % (Auto) (34.0-71.1) % Lymph % (Auto) (19.3-51.7) % [place] % (Auto) (4.7-12.5) % Eos % (Auto) (0.7-5.8) Baso % (Auto) (0.1-1.2) % Neut # (Auto) (1.56-6.13) K/mm3 Lymph # (Auto) (1.18-3.74) K/mm3 [place] # (Auto) (0.24-0.36) K/mm3 Eos # (Auto) (0.04-0.36) K/mm3 Baso # (Auto) (0.01-0.08) K/mm3 Sodium (136-145) mEq/L Potassium (3.5-5.1) mEq/L Chloride (98-107) mEq/L Carbon Dioxide (21-32) mEq/L Anion Gap (5-15) BUN (7-18) mg/dL Creatinine (0.55-1.02) mg/dL Est Cr Clr Drug Dosing mL/min Estimated GFR (MDRD) (>60) mL/min BUN/Creatinine Ratio (14-18) Glucose (74-106) mg/dL POC Glucose 180 H 117 H 84 (70-105) mg/dL Calcium (8.5-10.1) mg/dL Magnesium (1.8-2.4) mg/dl Iron (50-170) ug/dL TIBC (100-400) ug/dL % Saturation (20-55) % Transferrin (202-364) mg/dL Ferritin (8-252) ng/ml Vitamin B12 (193-986) pg/ml Cortisol ug/dL 12/18/19 12/18/19 12/18/19 Range/Units 00:01 01:08 02:06 WBC (3.98-10.04) K/mm3 RBC (3.98-5.22) M/mm3 Hgb (11.2-15.7) gm/dl Hct (34.1-44.9) % MCV (79.4-94.8) fl MCH (25.6-32.2) pg MCHC (32.2-35.5) g/dl RDW Std Deviation (36.4-46.3) fL Plt Count (182-369) K/mm3 MPV (9.4-12.3) fl Neut % (Auto) (34.0-71.1) % Lymph % (Auto) (19.3-51.7) % [place] % (Auto) (4.7-12.5) % Eos % (Auto) (0.7-5.8) Baso % (Auto) (0.1-1.2) % Neut # (Auto) (1.56-6.13) K/mm3 Lymph # (Auto) (1.18-3.74) K/mm3 [place] # (Auto) (0.24-0.36) K/mm3 Eos # (Auto) (0.04-0.36) K/mm3 Baso # (Auto) (0.01-0.08) K/mm3 Sodium (136-145) mEq/L Potassium (3.5-5.1) mEq/L Chloride (98-107) mEq/L Carbon Dioxide (21-32) mEq/L Anion Gap (5-15) BUN (7-18) mg/dL Creatinine (0.55-1.02) mg/dL Est Cr Clr Drug Dosing mL/min Estimated GFR (MDRD) (>60) mL/min BUN/Creatinine Ratio (14-18) Glucose (74-106) mg/dL POC Glucose 110 H 104 88 (70-105) mg/dL Calcium (8.5-10.1) mg/dL Magnesium (1.8-2.4) mg/dl Iron (50-170) ug/dL TIBC (100-400) ug/dL % Saturation (20-55) % Transferrin (202-364) mg/dL Ferritin (8-252) ng/ml Vitamin B12 (193-986) pg/ml Cortisol ug/dL 12/18/19 12/18/19 12/18/19 Range/Units 03:14 04:16 05:07 WBC (3.98-10.04) K/mm3 RBC (3.98-5.22) M/mm3 Hgb (11.2-15.7) gm/dl Hct (34.1-44.9) % MCV (79.4-94.8) fl MCH (25.6-32.2) pg MCHC (32.2-35.5) g/dl RDW Std Deviation (36.4-46.3) fL Plt Count (182-369) K/mm3 MPV (9.4-12.3) fl Neut % (Auto) (34.0-71.1) % Lymph % (Auto) (19.3-51.7) % [place] % (Auto) (4.7-12.5) % Eos % (Auto) (0.7-5.8) Baso % (Auto) (0.1-1.2) % Neut # (Auto) (1.56-6.13) K/mm3 Lymph # (Auto) (1.18-3.74) K/mm3 [place] # (Auto) (0.24-0.36) K/mm3 Eos # (Auto) (0.04-0.36) K/mm3 Baso # (Auto) (0.01-0.08) K/mm3 Sodium (136-145) mEq/L Potassium (3.5-5.1) mEq/L Chloride (98-107) mEq/L Carbon Dioxide (21-32) mEq/L Anion Gap (5-15) BUN (7-18) mg/dL Creatinine (0.55-1.02) mg/dL Est Cr Clr Drug Dosing mL/min Estimated GFR (MDRD) (>60) mL/min BUN/Creatinine Ratio (14-18) Glucose (74-106) mg/dL POC Glucose 91 108 H 84 (70-105) mg/dL Calcium (8.5-10.1) mg/dL Magnesium (1.8-2.4) mg/dl Iron (50-170) ug/dL TIBC (100-400) ug/dL % Saturation (20-55) % Transferrin (202-364) mg/dL Ferritin (8-252) ng/ml Vitamin B12 (193-986) pg/ml Cortisol ug/dL 12/18/19 12/18/19 12/18/19 Range/Units 06:09 06:50 07:10 WBC (3.98-10.04) K/mm3 RBC (3.98-5.22) M/mm3 Hgb (11.2-15.7) gm/dl Hct (34.1-44.9) % MCV (79.4-94.8) fl MCH (25.6-32.2) pg MCHC (32.2-35.5) g/dl RDW Std Deviation (36.4-46.3) fL Plt Count (182-369) K/mm3 MPV (9.4-12.3) fl Neut % (Auto) (34.0-71.1) % Lymph % (Auto) (19.3-51.7) % [place] % (Auto) (4.7-12.5) % Eos % (Auto) (0.7-5.8) Baso % (Auto) (0.1-1.2) % Neut # (Auto) (1.56-6.13) K/mm3 Lymph # (Auto) (1.18-3.74) K/mm3 [place] # (Auto) (0.24-0.36) K/mm3 Eos # (Auto) (0.04-0.36) K/mm3 Baso # (Auto) (0.01-0.08) K/mm3 Sodium 133 L (136-145) mEq/L Potassium 3.9 (3.5-5.1) mEq/L Chloride 100 (98-107) mEq/L Carbon Dioxide 28 (21-32) mEq/L Anion Gap 8.9 (5-15) BUN 6 L (7-18) mg/dL Creatinine 0.7 (0.55-1.02) mg/dL Est Cr Clr Drug Dosing 83.01 mL/min Estimated GFR (MDRD) > 60 (>60) mL/min BUN/Creatinine Ratio 8.6 L (14-18) Glucose 84 (74-106) mg/dL POC Glucose 82 87 (70-105) mg/dL Calcium 8.2 L (8.5-10.1) mg/dL Magnesium 1.8 (1.8-2.4) mg/dl Iron (50-170) ug/dL TIBC (100-400) ug/dL % Saturation (20-55) % Transferrin (202-364) mg/dL Ferritin (8-252) ng/ml Vitamin B12 (193-986) pg/ml Cortisol ug/dL 12/18/19 12/18/19 12/18/19 Range/Units 07:10 07:10 07:10 WBC 4.15 (3.98-10.04) K/mm3 RBC 3.47 L (3.98-5.22) M/mm3 Hgb 9.4 L (11.2-15.7) gm/dl Hct 29.3 L (34.1-44.9) % MCV 84.4 (79.4-94.8) fl MCH 27.1 (25.6-32.2) pg MCHC 32.1 L (32.2-35.5) g/dl RDW Std Deviation 62.2 H (36.4-46.3) fL Plt Count 156 L (182-369) K/mm3 MPV 10.1 (9.4-12.3) fl Neut % (Auto) 28.1 L (34.0-71.1) % Lymph % (Auto) 55.7 H (19.3-51.7) % [place] % (Auto) 11.6 (4.7-12.5) % Eos % (Auto) 3.9 (0.7-5.8) Baso % (Auto) 0.7 (0.1-1.2) % Neut # (Auto) 1.17 L (1.56-6.13) K/mm3 Lymph # (Auto) 2.31 (1.18-3.74) K/mm3 [place] # (Auto) 0.48 H (0.24-0.36) K/mm3 Eos # (Auto) 0.16 (0.04-0.36) K/mm3 Baso # (Auto) 0.03 (0.01-0.08) K/mm3 Sodium (136-145) mEq/L Potassium (3.5-5.1) mEq/L Chloride (98-107) mEq/L Carbon Dioxide (21-32) mEq/L Anion Gap (5-15) BUN (7-18) mg/dL Creatinine (0.55-1.02) mg/dL Est Cr Clr Drug Dosing mL/min Estimated GFR (MDRD) (>60) mL/min BUN/Creatinine Ratio (14-18) Glucose (74-106) mg/dL POC Glucose (70-105) mg/dL Calcium (8.5-10.1) mg/dL Magnesium (1.8-2.4) mg/dl Iron 62 (50-170) ug/dL TIBC 328 (100-400) ug/dL % Saturation 19 L (20-55) % Transferrin 262 (202-364) mg/dL Ferritin 11 (8-252) ng/ml Vitamin B12 604 (193-986) pg/ml Cortisol ug/dL 12/18/19 12/18/19 12/18/19 Range/Units 08:00 09:00 10:00 WBC (3.98-10.04) K/mm3 RBC (3.98-5.22) M/mm3 Hgb (11.2-15.7) gm/dl Hct (34.1-44.9) % MCV (79.4-94.8) fl MCH (25.6-32.2) pg MCHC (32.2-35.5) g/dl RDW Std Deviation (36.4-46.3) fL Plt Count (182-369) K/mm3 MPV (9.4-12.3) fl Neut % (Auto) (34.0-71.1) % Lymph % (Auto) (19.3-51.7) % [place] % (Auto) (4.7-12.5) % Eos % (Auto) (0.7-5.8) Baso % (Auto) (0.1-1.2) % Neut # (Auto) (1.56-6.13) K/mm3 Lymph # (Auto) (1.18-3.74) K/mm3 [place] # (Auto) (0.24-0.36) K/mm3 Eos # (Auto) (0.04-0.36) K/mm3 Baso # (Auto) (0.01-0.08) K/mm3 Sodium (136-145) mEq/L Potassium (3.5-5.1) mEq/L Chloride (98-107) mEq/L Carbon Dioxide (21-32) mEq/L Anion Gap (5-15) BUN (7-18) mg/dL Creatinine (0.55-1.02) mg/dL Est Cr Clr Drug Dosing mL/min Estimated GFR (MDRD) (>60) mL/min BUN/Creatinine Ratio (14-18) Glucose (74-106) mg/dL POC Glucose 82 87 81 (70-105) mg/dL Calcium (8.5-10.1) mg/dL Magnesium (1.8-2.4) mg/dl Iron (50-170) ug/dL TIBC (100-400) ug/dL % Saturation (20-55) % Transferrin (202-364) mg/dL Ferritin (8-252) ng/ml Vitamin B12 (193-986) pg/ml Cortisol ug/dL 12/18/19 12/18/1912/18/20 Range/Units 10:59 11:20 11:59 WBC (3.98-10.04) K/mm3 RBC (3.98-5.22) M/mm3 Hgb (11.2-15.7) gm/dl Hct (34.1-44.9) % MCV (79.4-94.8) fl MCH (25.6-32.2) pg MCHC (32.2-35.5) g/dl RDW Std Deviation (36.4-46.3) fL Plt Count (182-369) K/mm3 MPV (9.4-12.3) fl Neut % (Auto) (34.0-71.1) % Lymph % (Auto) (19.3-51.7) % [place] % (Auto) (4.7-12.5) % Eos % (Auto) (0.7-5.8) Baso % (Auto) (0.1-1.2) % Neut # (Auto) (1.56-6.13) K/mm3 Lymph # (Auto) (1.18-3.74) K/mm3 [place] # (Auto) (0.24-0.36) K/mm3 Eos # (Auto) (0.04-0.36) K/mm3 Baso # (Auto) (0.01-0.08) K/mm3 Sodium (136-145) mEq/L Potassium (3.5-5.1) mEq/L Chloride (98-107) mEq/L Carbon Dioxide (21-32) mEq/L Anion Gap (5-15) BUN (7-18) mg/dL Creatinine (0.55-1.02) mg/dL Est Cr Clr Drug Dosing mL/min Estimated GFR (MDRD) (>60) mL/min BUN/Creatinine Ratio (14-18) Glucose (74-106) mg/dL POC Glucose 55 L 138 H 67 L (70-105) mg/dL Calcium (8.5-10.1) mg/dL Magnesium (1.8-2.4) mg/dl Iron (50-170) ug/dL TIBC (100-400) ug/dL % Saturation (20-55) % Transferrin (202-364) mg/dL Ferritin (8-252) ng/ml Vitamin B12 (193-986) pg/ml Cortisol ug/dL 12/18/19 12/18/19 12/18/19 Range/Units 12:16 13:01 13:14 WBC (3.98-10.04) K/mm3 RBC (3.98-5.22) M/mm3 Hgb (11.2-15.7) gm/dl Hct (34.1-44.9) % MCV (79.4-94.8) fl MCH (25.6-32.2) pg MCHC (32.2-35.5) g/dl RDW Std Deviation (36.4-46.3) fL Plt Count (182-369) K/mm3 MPV (9.4-12.3) fl Neut % (Auto) (34.0-71.1) % Lymph % (Auto) (19.3-51.7) % [place] % (Auto) (4.7-12.5) % Eos % (Auto) (0.7-5.8) Baso % (Auto) (0.1-1.2) % Neut # (Auto) (1.56-6.13) K/mm3 Lymph # (Auto) (1.18-3.74) K/mm3 [place] # (Auto) (0.24-0.36) K/mm3 Eos # (Auto) (0.04-0.36) K/mm3 Baso # (Auto) (0.01-0.08) K/mm3 Sodium (136-145) mEq/L Potassium (3.5-5.1) mEq/L Chloride (98-107) mEq/L Carbon Dioxide (21-32) mEq/L Anion Gap (5-15) BUN (7-18) mg/dL Creatinine (0.55-1.02) mg/dL Est Cr Clr Drug Dosing mL/min Estimated GFR (MDRD) (>60) mL/min BUN/Creatinine Ratio (14-18) Glucose (74-106) mg/dL POC Glucose 85 70 110 H (70-105) mg/dL Calcium (8.5-10.1) mg/dL Magnesium (1.8-2.4) mg/dl Iron (50-170) ug/dL TIBC (100-400) ug/dL % Saturation (20-55) % Transferrin (202-364) mg/dL Ferritin (8-252) ng/ml Vitamin B12 (193-986) pg/ml Cortisol ug/dL 12/18/19 12/18/19 12/18/19 Range/Units 14:00 15:01 15:32 WBC (3.98-10.04) K/mm3 RBC (3.98-5.22) M/mm3 Hgb (11.2-15.7) gm/dl Hct (34.1-44.9) % MCV (79.4-94.8) fl MCH (25.6-32.2) pg MCHC (32.2-35.5) g/dl RDW Std Deviation (36.4-46.3) fL Plt Count (182-369) K/mm3 MPV (9.4-12.3) fl Neut % (Auto) (34.0-71.1) % Lymph % (Auto) (19.3-51.7) % [place] % (Auto) (4.7-12.5) % Eos % (Auto) (0.7-5.8) Baso % (Auto) (0.1-1.2) % Neut # (Auto) (1.56-6.13) K/mm3 Lymph # (Auto) (1.18-3.74) K/mm3 [place] # (Auto) (0.24-0.36) K/mm3 Eos # (Auto) (0.04-0.36) K/mm3 Baso # (Auto) (0.01-0.08) K/mm3 Sodium (136-145) mEq/L Potassium (3.5-5.1) mEq/L Chloride (98-107) mEq/L Carbon Dioxide (21-32) mEq/L Anion Gap (5-15) BUN (7-18) mg/dL Creatinine (0.55-1.02) mg/dL Est Cr Clr Drug Dosing mL/min Estimated GFR (MDRD) (>60) mL/min BUN/Creatinine Ratio (14-18) Glucose (74-106) mg/dL POC Glucose 111 H 63 L 78 (70-105) mg/dL Calcium (8.5-10.1) mg/dL Magnesium (1.8-2.4) mg/dl Iron (50-170) ug/dL TIBC (100-400) ug/dL % Saturation (20-55) % Transferrin (202-364) mg/dL Ferritin (8-252) ng/ml Vitamin B12 (193-986) pg/ml Cortisol ug/dL 12/18/19 Range/Units 16:01 WBC (3.98-10.04) K/mm3 RBC (3.98-5.22) M/mm3 Hgb (11.2-15.7) gm/dl Hct (34.1-44.9) % MCV (79.4-94.8) fl MCH (25.6-32.2) pg MCHC (32.2-35.5) g/dl RDW Std Deviation (36.4-46.3) fL Plt Count (182-369) K/mm3 MPV (9.4-12.3) fl Neut % (Auto) (34.0-71.1) % Lymph % (Auto) (19.3-51.7) % [place] % (Auto) (4.7-12.5) % Eos % (Auto) (0.7-5.8) Baso % (Auto) (0.1-1.2) % Neut # (Auto) (1.56-6.13) K/mm3 Lymph # (Auto) (1.18-3.74) K/mm3 [place] # (Auto) (0.24-0.36) K/mm3 Eos # (Auto) (0.04-0.36) K/mm3 Baso # (Auto) (0.01-0.08) K/mm3 Sodium (136-145) mEq/L Potassium (3.5-5.1) mEq/L Chloride (98-107) mEq/L Carbon Dioxide (21-32) mEq/L Anion Gap (5-15) BUN (7-18) mg/dL Creatinine (0.55-1.02) mg/dL Est Cr Clr Drug Dosing mL/min Estimated GFR (MDRD) (>60) mL/min BUN/Creatinine Ratio (14-18) Glucose (74-106) mg/dL POC Glucose 113 H (70-105) mg/dL Calcium (8.5-10.1) mg/dL Magnesium (1.8-2.4) mg/dl Iron (50-170) ug/dL TIBC (100-400) ug/dL % Saturation (20-55) % Transferrin (202-364) mg/dL Ferritin (8-252) ng/ml Vitamin B12 (193-986) pg/ml Cortisol ug/dL Med Orders - Current: Current Medications Acetaminophen (Tylenol) 650 mg PO Q6H PRN PRN Reason: Headache/Pain Last Admin: 12/18/19 16:20 Dose: 650 mg Clonazepam (Klonopin) 1 mg PO TID [facility] Last Admin: 12/18/19 14:11 Dose: 1 mg Clonidine HCl (Catapres) 0.1 mg PO BEDTIME PRN PRN Reason: Sleep Last Admin: 12/17/19 20:21 Dose: 0.1 mg Dextrose/Water (Dextrose 50% In Water) 50 ml IVPUSH ASDIRECTED PRN PRN Reason: Hypoglycemia Last Admin: 12/18/19 11:02 Dose: 50 ml Divalproex Sodium (Depakote) 500 mg PO BID [facility] Last Admin: 12/18/19 08:55 Dose: 500 mg Gabapentin (Neurontin) 600 mg PO TID [facility] Last Admin: 12/18/19 14:11 Dose: 600 mg Sodium Chloride (Normal Saline) 1,000 mls @ 1,000 mls/hr IV .BOLUS [facility] Last Admin: 12/16/19 20:37 Dose: 1,000 mls/hr Dextrose/Water (Dextrose 10% In Water) 1,000 mls @ 100 mls/hr IV ASDIRECTED [facility] Loperamide HCl (Imodium) 2 mg PO Q2H PRN PRN Reason: Diarrhea Miscellaneous Information (Remove Patch) 1 ea TRDERM DAILY [facility] Last Admin: 12/18/19 08:53 Dose: 1 ea Nicotine (Habitrol) 21 mg TRDERM DAILY [facility] Last Admin: 12/18/19 08:54 Dose: 21 mg Pantoprazole Sodium (Protonix) 40 mg PO ACBREAKFAST [facility] Last Admin: 12/18/19 05:10 Dose: 40 mg Paroxetine HCl (Paxil) 40 mg PO DAILY [facility] Last Admin: 12/18/19 08:56 Dose: 40 mg Sodium Chloride (Saline Flush) 10 ml FLUSH ASDIRECTED PRN PRN Reason: Keep Vein Open Last Admin: 12/16/19 20:50 Dose: 10 ml Sumatriptan Succinate (Imitrex) 100 mg PO ASDIRECTED PRN PRN Reason: MIGRAINE Last Admin: 12/17/19 12:23 Dose: 100 mg Discontinued Medications Dextrose/Water (Dextrose 50% In Water) Confirm Administered Dose 50 ml .ROUTE .STK-MED ONE Stop: 12/17/19 00:26 Last Admin: 12/17/19 00:30 Dose: Not Given Divalproex Sodium (Depakote Er) 500 mg PO BID [facility] Last Admin: 12/17/19 10:45 Dose: Not Given Potassium Chloride 10 meq/ (Premix) 100 mls @ 100 mls/hr IV Q1H JODI Stop: 12/17/19 01:29 Last Admin: 12/17/19 01:42 Dose: 100 mls/hr Sodium Chloride (Normal Saline) 1,000 mls @ 1,000 mls/hr IV ONETIME ONE Stop: 12/16/19 22:34 Last Admin: 12/16/19 21:40 Dose: 1,000 mls/hr Dextrose/Water (Dextrose 5% In Water) 1,000 mls @ 1,000 mls/hr IV ASDIRECTED [facility] Last Admin: 12/16/19 21:58 Dose: 1,000 mls/hr Dextrose/Water (Dextrose 5% In Water) 1,000 mls @ 150 mls/hr IV ASDIRECTED JODI Last Admin: 12/17/19 00:28 Dose: 150 mls/hr Dextrose/Water (Dextrose 10% In Water) 1,000 mls @ 150 mls/hr IV ASDIRECTED [facility] Last Admin: 12/17/19 04:23 Dose: 150 mls/hr Dextrose/Water (Dextrose 10% In Water) Confirm Administered Dose 1,000 mls @ as directed .ROUTE .STK-MED ONE Stop: 12/17/19 04:20 Last Admin: 12/17/19 04:37 Dose: Not Given Magnesium Sulfate 4 gm/ Premix 50 mls @ 12.5 mls/hr IV ONETIME ONE Stop: 12/17/19 13:02 Last Admin: 12/17/19 10:13 Dose: 12.5 mls/hr Dextrose/Water (Dextrose 10% In Water) 1,000 mls @ 150 mls/hr IV CONTINUOUS JODI Dextrose/Sodium Chloride (Dextrose 5%-Normal Saline) 1,000 mls @ 150 mls/hr IV CONTINUOUS JODI Last Admin: 12/17/19 18:46 Dose: 150 mls/hr Dextrose/Water (Dextrose 10% In Water) 1,000 mls @ 100 mls/hr IV ASDIRECTED [facility] Last Infusion: 12/18/19 14:10 Dose: 0 mls/hr Dextrose/Water (Dextrose 10% In Water) Confirm Administered Dose 1,000 mls @ as directed .ROUTE .STK-MED ONE Stop: 12/17/19 22:15 Last Admin: 12/17/19 22:18 Dose: Not Given Loperamide HCl (Imodium) 4 mg PO ONETIME ONE Stop: 12/17/19 09:46 Last Admin: 12/17/19 10:33 Dose: 4 mg Trazodone HCl (Trazodone) 100 mg PO BEDTIME ONE Stop: 12/17/19 20:12 Last Admin: 12/17/19 20:37 Dose: 100 mg - Exam General: Alert, Oriented HEENT: Pupils Equal, Mucous Membr. Moist/Tucker Neck: Supple Lungs: Clear to Auscultation, Normal Respiratory Effort Cardiovascular: Regular Rate, Regular Rhythm GI/Abdominal Exam: Normal Bowel Sounds, Soft, Non-Tender, No Distention Back Exam: Normal Inspection, Full Range of Motion Extremities: Normal Inspection, Normal Range of Motion, Non-Tender, No Pedal Edema, Normal Capillary Refill Sepsis Event Note - Evaluation Sepsis Screening Result: No Definite Risk - Focused Exam Vital Signs: Vital Signs Temp Resp BP Pulse Ox 12/18/19 16:00 98.9 F 18 116/76 96 12/18/19 12:00 99.2 F 16 104/69 97 12/18/19 08:00 98.4 F 16 109/73 99 Date Exam was Performed: 12/18/19 Time Exam was Performed: 17:37 - Problem List Review Problem List Initiated/Reviewed/Updated: Yes - My Orders Last 24 Hours: My Active Orders 12/18/19 08:08 Dextrose 10% in Water 1,000 ml IV ASDIRECTED 12/18/19 13:58 GLUCOSE 1 HOUR POST PRANDIAL [CHEM] Routine INSULIN [REF] Urgent 12/18/19 13:59 C-PEPTIDE, SERUM [REF] Urgent 12/18/19 14:02 KETONES,BLOOD [CHEM] Routine 12/18/19 14:03 MISC TEST Urgent 12/18/19 Dinner ADA Diabetic [[employer] Diet] [DIET] - Plan Plan:: Assessment * Hypoglycemia 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 Initial chemistry glucose of 47. * Given juice, D5 saline and transferred to the ICU for observation. * History of gastric bypass surgery in 2007 * To poor oral intake over the last couple of days. There appears to be difficulty getting food. * Took her 's phentermine 30 mg half capsule for couple of days prior to admission, but not the day of admission * Positive amphetamine on urine drug screen possibly due to phentermine * Previous episode of hypoglycemia and admitted in June 2019 * Denies using any insulin or hypoglycemic agent * Continues to have hypoglycemia after over 17 hours of treatment with D5 and D10 fluids * Hypotension * Initial blood pressures of 70s and 80s systolic * Resolved with fluid bolus * Held both chlorthalidone and losartan * Anxiety and depression * Multiple medications, but none that cause hypoglycemia * Paxil, clonidine, clonazepam, Depakote * Seizure disorder * Possible seizure on evening of admission * Possibly secondary to hypoglycemia versus seizure causing hypoglycemia * Home meds include gabapentin, clonazepam, Depakote * Hypertension * Home meds include chlorthalidone and losartan -held * Hyponatremia -improving * Likely secondary to IV fluids * Sodium 133 * Hypokalemia - * Potassium 2.9-->4.6--> 3.9 resolved * Likely secondary to chlorthalidone and poor oral intake * Hypomagnesemia * Magnesium 1.7-->1.6--> 1.8 Plan * Admit to ICU for close observation * Stop IV fluids * Switch to diabetic diet * Monitor blood sugars every 2 hours * Continue home medications * Get C-peptide, beta hydroxybutyric acid, pro insulin and insulin level -next time her blood sugars are less than 50 * Follow labs closely * Encouraged not to use phentermine in the future. * Dietary consult in the morning * VTE prophylaxis with SCDs and early ambulation * CODE STATUS: Full code
[2019-12-18] MEDS: cloNIDine 0.1 MG Tab PO PRN (20:05)
[2019-12-18] MEDS ORDERED: traZODone 50 MG Tab PO SCH (21:00)
[2019-12-19] MEDS ORDERED: Calcium Carbonate 500 MG Tab.Chew PO ONE (03:13)
[2019-12-19] MEDS ORDERED: Pantoprazole 40 MG Tab.CR PO SCH (08:00)
[2019-12-19] MEDS: Divalproex Sodium Delayed-Release 500 MG Tab.CR PO SCH (08:44)
[2019-12-19] MEDS: Gabapentin 600 MG Tab PO SCH ×2 (08:44→14:38)
[2019-12-19] MEDS: ClonazePAM 1 MG Tab PO SCH ×2 (08:44→14:38)
[2019-12-19] MEDS: PARoxetine 20 MG Tab PO SCH (08:45)
[2019-12-19] MEDS: Nicotine 21 MG/24 Hr Patch TRDERM SCH ×2 (08:45→10:39)
[2019-12-19] MEDS ORDERED: Ferrous Sulfate 324 MG Tab.EC PO SCH (09:00)
[2019-12-19] MEDS: Acetaminophen 325 MG Tab PO PRN (11:21)
[2019-12-19 11:25] VITALS: BP 115/78; PULSE 78
--- NOTE | 2019-12-19 14:28 | PCM.DCSUM1 ---
Discharge Summary - Hospital Course HPI Initial Comments: Patient comes into the emergency room today with complaints of feeling weak for the last couple of days. This evening she was walking across the living room floor and then fell after becoming extremely fatigued. She did hit the back of her head. Patient's states that they have not been eating well over the last couple of days, today she is only had cheese and crackers and some apple pie. She had gastric bypass surgery in 2007 and last year in July or August was diagnosed with hypoglycemia. Patient also has a history of seizure disorder and her thinks she may have had a seizure that caused her fall. She is on chronic potassium replacement, but has not been taking it for the last 1 to 2 months. She did start taking it 2 days ago because of feeling weak. Approximately 3 weeks ago she did develop an upper respiratory tract infection and was prescribed azithromycin to concurrent courses and another antibiotic when that failed. Patient smokes 1 pack/day, and does not drink. She denies history of lung disease. Patient also has a history of hypertension and takes chlorthalidone and losartan. When she presented to the emergency room her blood sugars were less than 50 and her blood pressure was 70- 80 systolic. She was given fluid boluses to include D5 and potassium supplementation. Valproic acid was found to be low at 36.4. Diagnosis: Stroke: No - Discharge Data Discharge Date: 12/19/19 Discharge Disposition: Home, Self-Care 01 Condition: Good - Referral to Home Health Primary Care Physician: Clifford Werner MD - Discharge Diagnosis/Problem(s) (1) Postprandial hypoglycemia SNOMED Code(s): 071359788 ICD Code: E16.2 - HYPOGLYCEMIA, UNSPECIFIED Status: Acute - Patient Summary/Data Consults: Consultations 12/19/19 08:11 Consult to Business Intelligence Analyst [CONS] Routine Hospital Course: Patient was admitted with hypoglycemia, but her hypotension did resolve before getting to the ICU. After repeated boluses of D50, placing her on D10, and multiple meals was determined that she was experiencing postprandial hypoglycemia. Review of her blood sugars after admission showed in general she did not go below 50, but most of her low blood sugars were an hour or 2 after a meal. We did stop her chlorthalidone because of hypokalemia. She received dietary education on how to prevent these hypoglycemic episodes. As an outpatient she may benefit from acarbose which slows digestion of carbohydrates. - Patient Instructions Diet: Diabetic Diet Activity: As Tolerated Driving: Do Not Drive Showering/Bathing: May Shower Other/Special Instructions: Follow up with your PCP. Follow diet advice recommended by our dietitian. If you continue to have low blood sugars after meals you may benefit from a medication called Acarbose. It is considered a diabetic medication, but it also can help people that get low blood sugars after meals by slowing down absorption of the food. Propranolol has also been shown to contribute to low blood sugars after meals. Unless you absolutely have to stay on propranolol I recommend stopping this medication. Paroxetine also has a rare side effect of low blood sugars (0.1%). If all the above measures do not help resolve your low blood sugars you may want to try a different medication. - Discharge Plan *PRESCRIPTION DRUG MONITORING PROGRAM REVIEWED*: No *COPY OF PRESCRIPTION DRUG MONITORING REPORT IN PATIENT ROSA: No Prescriptions/Med Rec: Ferrous Sulfate 324 mg PO BIDPC #60 tab.ec Nicotine [Habitrol] 21 mg TRDERM DAILY #30 patch Home Medications: Home Meds Gabapentin [Neurontin] 600 mg PO TID 06/22/19 [History] PARoxetine HCl [Paxil] 40 mg PO DAILY 06/22/19 [History] Pantoprazole Sodium [Protonix] 40 mg PO DAILY 06/22/19 [History] cloNIDine [Catapres] 0.1 mg PO BEDTIME PRN 06/22/19 [History] clonazePAM [Klonopin] 1 mg PO TID 06/22/19 [History] traZODone HCl [Trazodone HCl] 100 mg PO BEDTIME 06/24/19 [History] Losartan [Cozaar] 100 mg PO DAILY 12/16/19 [History] Ondansetron [Zofran] 4 mg PO Q8H PRN 12/16/19 [History] SUMAtriptan Succinate [Imitrex] 100 mg PO ASDIRECTED PRN MDD 200 mg 12/16/19 [ History] Divalproex Sodium [Depakote] 500 mg PO BID 12/17/19 [History] Ferrous Sulfate 324 mg PO BIDPC #60 tab.ec 12/19/19 [Rx] Nicotine [Habitrol] 21 mg TRDERM DAILY #30 patch 12/19/19 [Rx] Oxygen Therapy Mode: Room Air Patient Handouts: Seizure, Adult, Steps to Quit Smoking, Hypoglycemia, Easy-to- Read Forms: ED Department Discharge Referrals: Clifford Werner MD [Primary Care Provider] - 12/28/19 1:30 pm - Discharge Summary/Plan Comment DC Time >30 min.: Yes Discharge Summary/Plan Comment: Follow-up with primary care provider. Eat small, frequent, high complex foods. Consider acarbose if not improving. - General Info Date of Service: 12/19/19 Admission Dx/Problem (Free Text: Hypotension, hypoglycemia Subjective Update: Patient is asymptomatic. Functional Status: Reports: Pain Controlled - Review of Systems General: Reports: No Symptoms HEENT: Reports: No Symptoms Pulmonary: Reports: No Symptoms Cardiovascular: Reports: No Symptoms Gastrointestinal: Reports: No Symptoms Musculoskeletal: Reports: No Symptoms - Patient Data Vitals - Most Recent: Last Vital Signs Temp 98.9 F 12/19/19 11:23 Pulse 78 12/19/19 11:23 Resp 18 12/19/19 11:23 BP 115/78 12/19/19 11:23 Pulse Ox 99 12/19/19 11:23 Weight - Most Recent: 164 lb 1.6 oz I&O - Last 24 hours: Intake & Output 12/18/19 12/19/19 12/19/19 22:59 06:59 14:59 Intake Total 2059 500 Balance 2059 500 Lab Results - Last 24 hrs: Laboratory Results - last 24 hr 12/18/19 12/18/19 12/18/19 Range/Units 15:01 15:32 16:01 POC Glucose 63 L 78 113 H (70-105) mg/dL 12/18/19 12/18/19 12/18/19 Range/Units 17:14 18:53 19:15 POC Glucose 82 52 L 54 L (70-105) mg/dL 12/18/19 12/18/19 12/19/19 Range/Units 21:04 23:01 03:10 POC Glucose 82 99 73 (70-105) mg/dL 12/19/19 12/19/19 12/19/19 Range/Units 03:28 06:45 07:58 POC Glucose 112 H 82 71 (70-105) mg/dL 12/19/19 Range/Units 11:19 POC Glucose 71 (70-105) mg/dL Med Orders - Current: Current Medications Acetaminophen (Tylenol) 650 mg PO Q6H PRN PRN Reason: Headache/Pain Last Admin: 12/19/19 11:21 Dose: 650 mg Clonazepam (Klonopin) 1 mg PO TID [facility] Last Admin: 12/19/19 08:44 Dose: 1 mg Clonidine HCl (Catapres) 0.1 mg PO BEDTIME PRN PRN Reason: Sleep Last Admin: 12/18/19 20:05 Dose: 0.1 mg Dextrose/Water (Dextrose 50% In Water) 50 ml IVPUSH ASDIRECTED PRN PRN Reason: Hypoglycemia Last Admin: 12/18/19 11:02 Dose: 50 ml Divalproex Sodium (Depakote) 500 mg PO BID [facility] Last Admin: 12/19/19 08:44 Dose: 500 mg Ferrous Sulfate (Ferrous Sulfate) 324 mg PO BIDPC [facility] Last Admin: 12/19/19 08:44 Dose: 324 mg Gabapentin (Neurontin) 600 mg PO TID [facility] Last Admin: 12/19/19 08:44 Dose: 600 mg Sodium Chloride (Normal Saline) 1,000 mls @ 1,000 mls/hr IV .BOLUS [facility] Last Admin: 12/16/19 20:37 Dose: 1,000 mls/hr Dextrose/Water (Dextrose 10% In Water) 1,000 mls @ 100 mls/hr IV ASDIRECTED [facility] Loperamide HCl (Imodium) 2 mg PO Q2H PRN PRN Reason: Diarrhea Miscellaneous Information (Remove Patch) 1 ea TRDERM DAILY [facility] Last Admin: 12/19/19 08:44 Dose: 1 ea Nicotine (Habitrol) 21 mg TRDERM DAILY [facility] Last Admin: 12/19/19 10:39 Dose: 21 mg Pantoprazole Sodium (Protonix) 40 mg PO DAILY@0800 [facility] Last Admin: 12/19/19 08:45 Dose: 40 mg Paroxetine HCl (Paxil) 40 mg PO DAILY [facility] Last Admin: 12/19/19 08:45 Dose: 40 mg Sodium Chloride (Saline Flush) 10 ml FLUSH ASDIRECTED PRN PRN Reason: Keep Vein Open Last Admin: 12/16/19 20:50 Dose: 10 ml Sumatriptan Succinate (Imitrex) 100 mg PO ASDIRECTED PRN PRN Reason: MIGRAINE Last Admin: 12/17/19 12:23 Dose: 100 mg Trazodone HCl (Trazodone) 100 mg PO BEDTIME [facility] Last Admin: 12/18/19 20:02 Dose: 100 mg Discontinued Medications Calcium Carbonate/Glycine (Tums) 1,000 mg PO ONETIME ONE Stop: 12/19/19 03:14 Last Admin: 12/19/19 04:05 Dose: 1,000 mg Dextrose/Water (Dextrose 50% In Water) Confirm Administered Dose 50 ml .ROUTE .STK-MED ONE Stop: 12/17/19 00:26 Last Admin: 12/17/19 00:30 Dose: Not Given Divalproex Sodium (Depakote Er) 500 mg PO BID [facility] Last Admin: 12/17/19 10:45 Dose: Not Given Potassium Chloride 10 meq/ (Premix) 100 mls @ 100 mls/hr IV Q1H [facility] Stop: 12/17/19 01:29 Last Admin: 12/17/19 01:42 Dose: 100 mls/hr Sodium Chloride (Normal Saline) 1,000 mls @ 1,000 mls/hr IV ONETIME ONE Stop: 12/16/19 22:34 Last Admin: 12/16/19 21:40 Dose: 1,000 mls/hr Dextrose/Water (Dextrose 5% In Water) 1,000 mls @ 1,000 mls/hr IV ASDIRECTED [facility] Last Admin: 12/16/19 21:58 Dose: 1,000 mls/hr Dextrose/Water (Dextrose 5% In Water) 1,000 mls @ 150 mls/hr IV ASDIRECTED [facility] Last Admin: 12/17/19 00:28 Dose: 150 mls/hr Dextrose/Water (Dextrose 10% In Water) 1,000 mls @ 150 mls/hr IV ASDIRECTED [facility] Last Admin: 12/17/19 04:23 Dose: 150 mls/hr Dextrose/Water (Dextrose 10% In Water) Confirm Administered Dose 1,000 mls @ as directed .ROUTE .STK-MED ONE Stop: 12/17/19 04:20 Last Admin: 12/17/19 04:37 Dose: Not Given Magnesium Sulfate 4 gm/ Premix 50 mls @ 12.5 mls/hr IV ONETIME ONE Stop: 12/17/19 13:02 Last Admin: 12/17/19 10:13 Dose: 12.5 mls/hr Dextrose/Water (Dextrose 10% In Water) 1,000 mls @ 150 mls/hr IV CONTINUOUS JODI Dextrose/Sodium Chloride (Dextrose 5%-Normal Saline) 1,000 mls @ 150 mls/hr IV CONTINUOUS JODI Last Admin: 12/17/19 18:46 Dose: 150 mls/hr Dextrose/Water (Dextrose 10% In Water) 1,000 mls @ 100 mls/hr IV ASDIRECTED JODI Last Infusion: 12/18/19 14:10 Dose: 0 mls/hr Dextrose/Water (Dextrose 10% In Water) Confirm Administered Dose 1,000 mls @ as directed .ROUTE .STK-MED ONE Stop: 12/17/19 22:15 Last Admin: 12/17/19 22:18 Dose: Not Given Loperamide HCl (Imodium) 4 mg PO ONETIME ONE Stop: 12/17/19 09:46 Last Admin: 12/17/19 10:33 Dose: 4 mg Pantoprazole Sodium (Protonix) 40 mg PO ACBREAKFAST JODI Last Admin: 12/18/19 05:10 Dose: 40 mg Trazodone HCl (Trazodone) 100 mg PO BEDTIME ONE Stop: 12/17/19 20:12 Last Admin: 12/17/19 20:37 Dose: 100 mg
== END 2019-12-19 15:50 | disposition home or self-care (01) | DRG 638 ==
LOC: JD.ED 20:06 → JD.ICU 22:22
PROVIDERS: ADMIT Family Medicine; ATTEND Family Medicine
DX: E11.649 Type 2 diabetes mellitus with hypoglycemia without coma (principal); E87.1 Hypo-osmolality and hyponatremia; G40.909 Epilepsy, unspecified, not intractable, without status epilepticus; F17.210 Nicotine dependence, cigarettes, uncomplicated; I10 Essential (primary) hypertension; H54.7 Unspecified visual loss; E87.6 Hypokalemia; E83.42 Hypomagnesemia; I95.89 Other hypotension; K21.9 Gastro-esophageal reflux disease without esophagitis; M19.90 Unspecified osteoarthritis, unspecified site; M54.9 Dorsalgia, unspecified; M54.2 Cervicalgia; G89.29 Other chronic pain; G43.909 Migraine, unspecified, not intractable, without status migrainosus; W19.XXXA Unspecified fall, initial encounter; Y93.01 Activity, walking, marching and hiking; Y93.89 Activity, other specified; S00.11XA Contusion of right eyelid and periocular area, initial encounter; F41.9 Anxiety disorder, unspecified; F32.9 Major depressive disorder, single episode, unspecified; Z90.49 Acquired absence of other specified parts of digestive tract; Z90.710 Acquired absence of both cervix and uterus; Z98.890 Other specified postprocedural states; Z98.51 Tubal ligation status; Z98.84 Bariatric surgery status; Z88.1 Allergy status to other antibiotic agents; Z88.5 Allergy status to narcotic agent; Z88.8 Allergy status to other drugs, medicaments and biological substances; Z79.899 Other long term (current) drug therapy; Z90.721 Acquired absence of ovaries, unilateral; Z90.79 Acquired absence of other genital organ(s)
CPT/HCPCS: 36415; 70450; 70450-26; 71045; 71045-26; 80048; 80053; 80164; 80306; 80307; 81001; 82533; 82607; 82728; 82962; 83036; 83525; 83540; 83690; 83735; 84466; 84484; 84681; 85007; 85025; 85027; 93005; 93010; 96361; 96365; 99285; 99285-25; A9270-GY; J3475; J3480; J7030; J7042; J7060

== ENCOUNTER 2020-01-27 13:50 | Emergency (ER) | payer MEDICAID ==
[2020-01-27 14:09] VITALS: BP 104/67; PULSE 76
--- NOTE | 2020-01-27 14:52 | EDM.PDOC ---
ED HPI GENERAL MEDICAL PROBLEM - General Chief Complaint: General Stated Complaint: [facility] Time Seen by Provider: 01/27/20 14:05 Source of Information: Reports: Patient History Limitations: Reports: No Limitations - History of Present Illness INITIAL COMMENTS - FREE TEXT/NARRATIVE: Mrs. Garcia is a very pleasant 59-year-old woman with numerous chronic medical problems, including a history of diabetes that resolved following a gastric bypass in 2007, but who suffers from recurrent episodes of hypoglycemia for the past 6 to 8 months, anxiety, depression, both made worse since her unexpectedly on 01/16/2020, who is now brought to the ED by EMS after her daughter called due to the patient feeling fatigued, shaky, and lightheaded. An Accu-Chek at home was 43. The patient drank apple juice. By the time EMS arrived, her Accu-Chek was 106, however, it is down to 81 here in the ED. Due to stress over her dying, the patient acknowledges that she took 1 tablet of clonazepam around 8:30 this morning, then 2 tablets around 12:30 this afternoon. She is prescribed 1 tablet po TID; her interpretation of that prescription is that she may take 1 tablet every 6 hours, since she does not take it in the middle of the night. The patient states that she has had a slight sore throat and a slight nonproductive cough over the past 2 days. She had a subjective fever this morning, however, she is afebrile here in the ED. She denies recent chills, dyspnea, chest pain, palpitations, nausea, vomiting, constipation, diarrhea, abdominal pain, urinary symptoms, recent weight gain or weight loss, recent bloody bowel movements or black bowel movements, recent joint aches, headaches, or rashes. Here in the ED, the patient is found to be hemodynamically stable, afebrile, saturating 98% on room air. Patient's PCP is Dr. Clifford Carballo. Her Neurologist is Dr. Joss Powers. Her Psychiatrist is Dr. Cheryl Sinclair. She received an influenza vaccine this season. Lower Back Pain Score (Numeric/FACES): 7 - Related Data Allergies Allergy/AdvReac Type Severity Reaction Status Date / Time cephalexin Allergy Hives Verified 01/27/20 13:57 morphine Allergy Itching Verified 01/27/20 13:57 venlafaxine [From Effexor] Allergy Cannot Verified 01/27/20 13:57 Remember lisinopril AdvReac Muscle Verified 01/27/20 13:57 Aches Home Meds: Home Meds Gabapentin [Neurontin] 600 mg PO TID 06/22/19 [History] PARoxetine HCl [Paxil] 40 mg PO DAILY 06/22/19 [History] Pantoprazole Sodium [Protonix] 40 mg PO DAILY 06/22/19 [History] cloNIDine [Catapres] 0.1 mg PO BEDTIME PRN 06/22/19 [History] clonazePAM [Klonopin] 1 mg PO TID 06/22/19 [History] traZODone HCl [Trazodone HCl] 100 mg PO BEDTIME 06/24/19 [History] Losartan [Cozaar] 100 mg PO DAILY 12/16/19 [History] Ondansetron [Zofran] 4 mg PO Q8H PRN 12/16/19 [History] Chlorthalidone 25 mg PO DAILY 01/27/20 [History] Divalproex Sodium [Depakote] 500 mg PO BID 01/27/20 [History] Potassium Chloride [Klor-Con 10] 20 meq PO DAILY 01/27/20 [History] Past Medical History HEENT History: Reports: Allergic Rhinitis, Impaired Vision Other HEENT History: wears glasses, dentures Cardiovascular History: Reports: Blood Clots/VTE/DVT, Hypertension Respiratory History: Reports: PE Gastrointestinal History: Reports: GERD, PUD, Other (See Below) (SBO) Musculoskeletal History: Reports: Osteoarthritis Neurological History: Reports: Migraines, Seizure Psychiatric History: Reports: Addiction, Anxiety, Depression Endocrine/Metabolic History: Reports: Diabetes, Type II (resolved following gastric bypass) Hematologic History: Reports: Anemia, Iron Deficiency - Past Surgical History HEENT Surgical History: Reports: Oral Surgery (Dentures) GI Surgical History: Reports: Bariatric Procedure (gastric bypass around 2007), Cholecystectomy (around 2008), Hernia, Abdominal, Lysis of Adhesions (x 4) Female Surgical History: Reports: Hysterectomy (complete), Tubal Ligation Musculoskeletal Surgical History: Reports: Shoulder Surgery (left, arthroscopic x 1, open x 1) Social & Family History - Family History Family Medical History: Noncontributory - Tobacco Use Smoking Status *Q: Current Every Day Smoker Years of Tobacco use: 43 Packs/Tins Daily: 1 Packs/Tins Daily Comment: Down from 2 ppd - Caffeine Use Caffeine Use: Reports: Coffee Caffeine Use Comment: unknown - Alcohol Use Alcohol Use History: No - Recreational Drug Use Recreational Drug Use: Yes Drug Use in Last 12 Months: No Recreational Drug Type: Reports: Marijuana/Hashish (last smoked around 1999), Methamphetamine (last snorted ) - Living Situation & Occupation Living situation: Reports: , with Family (Daughter + her 2 kids) Occupation: Disabled ED ROS GENERAL - Review of Systems Review Of Systems: Comprehensive ROS is negative, except as noted in HPI. Musculoskeletal: Reports: Neck Pain (chronic), Back Pain (chronic) ED EXAM, GENERAL - Physical Exam Exam: See Below Exam Limited By: No Limitations General Appearance: Alert, WD/WN, No Apparent Distress Eye Exam: Bilateral Eye: EOMI, Normal Inspection Ears: Normal External Exam, Hearing Grossly Normal Nose: Normal Inspection Throat/Mouth: Normal Inspection, Normal Lips, Normal Voice, No Airway Compromise Head: Atraumatic, Normocephalic Neck: Normal Inspection, Full Range of Motion Respiratory/Chest: No Respiratory Distress, Lungs Clear, Normal Breath Sounds, No Accessory Muscle Use Cardiovascular: Normal Peripheral Pulses, Regular Rate, Rhythm, No Edema, No Gallop, No JVD, No Murmur, No Rub Peripheral Pulses: 4+: Radial (L), Radial (R) GI/Abdominal: Normal Bowel Sounds, Soft, Non-Tender, No Organomegaly, No Distention, No Abnormal Bruit, No Mass (Female) Exam: Deferred Rectal (Female) Exam: Deferred Back Exam: Normal Inspection, Full Range of Motion, NT Extremities: Normal Inspection, Normal Range of Motion, No Pedal Edema, Normal Capillary Refill Neurological: Alert, Oriented, Normal Cognition, No Motor/Sensory Deficits Psychiatric: Depressed Mood Skin Exam: Warm, Dry, Intact, Normal Color, No Rash EKG INTERPRETATION EKG Date: 01/27/20 Time: 15:03 Rhythm: NSR Rate (Beats/Min): 77 Cocoa: Normal P-Wave: Enlarged (LAE) QRS: Normal ST-T: Normal QT: Normal Comparison: No Change (12/16/2019) Course - Vital Signs Last Recorded V/S: Last Vital Signs Temp 37.3 C 01/27/20 13:57 Pulse 76 03/27/20 13:57 Resp 16 01/27/20 13:57 BP 104/67 01/27/20 13:57 Pulse Ox 98 01/27/20 13:57 Orthostatic Blood Pressure [ 109/64 Standing] Orthostatic Blood Pressure [ 117/68 Supine] - Orders/Labs/Meds Orders: Active Orders 24 hr Category Date Time Status Blood Glucose Check, Bedside [RC] ONETIME Care 01/27/20 14:22 Active EKG Documentation Completion [RC] STAT Care 01/27/20 14:34 Active Orthostatic Vital Signs [RC] STAT Care 01/27/20 14:33 Active Labs: Laboratory Tests 01/27/20 01/27/20 01/27/20 Range/Units 14:01 14:10 14:10 WBC (3.98-10.04) K/mm3 RBC (3.98-5.22) M/mm3 Hgb (11.2-15.7) gm/dl Hct (34.1-44.9) % MCV (79.4-94.8) fl MCH (25.6-32.2) pg MCHC (32.2-35.5) g/dl RDW Std Deviation (36.4-46.3) fL Plt Count (182-369) K/mm3 MPV (9.4-12.3) fl Neutrophils % (Manual) (40-60) % Band Neutrophils % (0-10) % Lymphocytes % (Manual) (20-40) % Atypical Lymphs % % Monocytes % (Manual) (2-10) % Eosinophils % (Manual) (0.7-5.8) % Basophils % (Manual) (0.1-1.2) Platelet Estimate Anisocytosis Macrocytosis Ovalocytes RBC Morph Comment Sodium 131 L (136-145) mEq/L Potassium 3.8 (3.5-5.1) mEq/L Chloride 98 (98-107) mEq/L Carbon Dioxide 22 (21-32) mEq/L Anion Gap 14.8 (5-15) BUN 14 (7-18) mg/dL Creatinine 1.1 H (0.55-1.02) mg/dL Est Cr Clr Drug Dosing 52.82 mL/min Estimated GFR (MDRD) 51 (>60) mL/min BUN/Creatinine Ratio 12.7 L (14-18) Glucose 68 L (74-106) mg/dL POC Glucose 81 (70-105) mg/dL Calcium 8.3 L (8.5-10.1) mg/dL Magnesium 1.7 L (1.8-2.4) mg/dl Ferritin 11 (8-252) ng/ml Total Bilirubin 0.3 (0.2-1.0) mg/dL AST 13 L (15-37) U/L ALT 16 (14-59) U/L Alkaline Phosphatase 40 L (46-116) U/L Lactate Dehydrogenase 169 (81-234) U/L Troponin I < 0.017 (0.00-0.056) ng/mL Total Protein 6.4 (6.4-8.2) g/dl Albumin 3.3 L (3.4-5.0) g/dl Globulin 3.1 gm/dL Albumin/Globulin Ratio 1.1 (1-2) TSH 3rd Generation 1.764 (0.358-3.74) uIU/mL 01/27/20 01/27/20 Range/Units 14:30 15:55 WBC 4.76 (3.98-10.04) K/mm3 RBC 3.45 L (3.98-5.22) M/mm3 Hgb 9.6 L (11.2-15.7) gm/dl Hct 30.4 L (34.1-44.9) % MCV 88.1 D (79.4-94.8) fl MCH 27.8 (25.6-32.2) pg MCHC 31.6 L (32.2-35.5) g/dl RDW Std Deviation 60.9 H (36.4-46.3) fL Plt Count 343 D (182-369) K/mm3 MPV 9.8 (9.4-12.3) fl Neutrophils % (Manual) 58 (40-60) % Band Neutrophils % 0 (0-10) % Lymphocytes % (Manual) 41 H (20-40) % Atypical Lymphs % 0 % Monocytes % (Manual) 1 L (2-10) % Eosinophils % (Manual) 0 L (0.7-5.8) % Basophils % (Manual) 0 L (0.1-1.2) Platelet Estimate Adequate Anisocytosis 1+ slight Macrocytosis 1+ slight Ovalocytes 1+ slight RBC Morph Comment Not Reportable Sodium (136-145) mEq/L Potassium (3.5-5.1) mEq/L Chloride (98-107) mEq/L Carbon Dioxide (21-32) mEq/L Anion Gap (5-15) BUN (7-18) mg/dL Creatinine (0.55-1.02) mg/dL Est Cr Clr Drug Dosing mL/min Estimated GFR (MDRD) (>60) mL/min BUN/Creatinine Ratio (14-18) Glucose (74-106) mg/dL POC Glucose 97 (70-105) mg/dL Calcium (8.5-10.1) mg/dL Magnesium (1.8-2.4) mg/dl Ferritin (8-252) ng/ml Total Bilirubin (0.2-1.0) mg/dL AST (15-37) U/L ALT (14-59) U/L Alkaline Phosphatase (46-116) U/L Lactate Dehydrogenase (81-234) U/L Troponin I (0.00-0.056) ng/mL Total Protein (6.4-8.2) g/dl Albumin (3.4-5.0) g/dl Globulin gm/dL Albumin/Globulin Ratio (1-2) TSH 3rd Generation (0.358-3.74) uIU/mL - Re-Assessments/Exams Free Text/Narrative Re-Assessment/Exam: 01/27/20 14:41 The patient's fatigue, shakiness, and lightheadedness were most likely due to a combination of the patient's hypoglycemia of 43, and excessive clonazepam, however, her symptoms of a recent sore throat, dry cough, and subjective fever could be due to a viral illness, including COVID-19. The patient does not meet criterion for testing for the SARS-CoV-2 virus, however, I have ordered a work- up that includes orthostatics, blood work, and a chest x-ray. In the meantime, because the patient's Accu-Chek was 81 here in the ED, she will be given something to eat. 01/27/20 15:11 The patient is not orthostatic. Two-view chest radiograph reviewed. The cardiac silhouette is within normal limits. No pulmonary vascular congestion. No pleural effusions. No focal infiltrate. No pneumothorax. Old/well-healed right 7th and possibly 8th rib fractures incidentally noted. Formal read per the Radiologist pending. 01/27/20 15:45 The patient CBC is remarkable for a H/H depressed at 9.6/30.4, with the remainder of her CBC being unremarkable. Her CMP is remarkable for a sodium mildly depressed at 131 and a creatinine slightly elevated at 1.1. Her blood glucose is depressed at 68. The remainder of her CMP is unremarkable. Her magnesium level is slightly depressed at 1.7. Her troponin is undetectably low. Her LDH is within normal limits at 169. Her ferritin is within normal limits at 11. Her TSH is within normal limits at 1.764. Reviewing prior records, I see that the patient's H/H was 9.4/29.3 on 12/18/2019. The patient's hypomagnesemia is not low enough to treat. While far from confirmatory, normal LDH and ferritin levels provide some reassurance that the patient is not suffering from COVID-19. I am told that the patient did eat. We will recheck an Accu-Chek. 01/27/20 15:57 The patient's Accu-Chek is 97. I will discharge her home. Departure - Departure Time of Disposition: 16:04 Disposition: Home, Self-Care 01 Condition: Good Clinical Impression: Hypoglycemia after GI (gastrointestinal) surgery Anemia Qualifiers: Anemia type: unspecified type Qualified Code(s): D64.9 - Anemia, unspecified - Discharge Information *PRESCRIPTION DRUG MONITORING PROGRAM REVIEWED*: Not Applicable *COPY OF PRESCRIPTION DRUG MONITORING REPORT IN PATIENT ROSA: Not Applicable Instructions: Hypoglycemia Referrals: Clifford Werner MD [Primary Care Provider] - Joss Powers MD [Ordering Only Provider] - Yahir,Cheryl Cohen MD [Ordering Only Provider] - Forms: ED Department Discharge Additional Instructions: You were seen in the emergency room for symptoms of fatigue, shakiness, lightheadedness, with a history of a slight sore throat and slight dry cough. Your blood sugar was low at home. Work-up in the ER included blood work, positional blood pressure checks, a chest x-ray, and an ECG. Your blood work found you to be mildly anemic with a hemoglobin of 9.6, however , this is slightly above the 9.4 that your hemoglobin was on 12/18/2019. Your blood sugar was as low as 68, however, it radha to 97 after you ate. The remainder of your work-up was unremarkable. Going forward, we recommend that you check your blood sugar often, and eat appropriately. We also recommend that you limit your clonazepam (Klonopin) to 1 tablet up to every 8 hours, as prescribed. If any other problems, please do not hesitate to return to the ER. Sepsis Event Note - Evaluation Sepsis Screening Result: No Definite Risk - Focused Exam Vital Signs: Vital Signs Temp Pulse Resp BP Pulse Ox 01/27/20 13:57 37.3 C 76 16 104/67 98 Date Exam was Performed: 01/27/20 Time Exam was Performed: 16:13 - My Orders Last 24 Hours: My Active Orders 01/27/20 14:22 Blood Glucose Check, Bedside [RC] ONETIME 01/27/20 14:33 Orthostatic Vital Signs [RC] STAT 01/27/20 14:34 EKG Documentation Completion [RC] STAT - Assessment/Plan Last 24 Hours: My Active Orders 01/27/20 14:22 Blood Glucose Check, Bedside [RC] ONETIME 01/27/20 14:33 Orthostatic Vital Signs [RC] STAT 01/27/20 14:34 EKG Documentation Completion [RC] STAT
--- NOTE | 2020-01-27 15:06 | CR ---
Chest: 2 views of the chest were obtained. Comparison: Prior chest x-ray of 12/17/19. Heart size and mediastinum are within normal limits. Equivocal parenchymal density within the left base. Lungs otherwise are clear. Mild scoliosis is noted within the spine. Old healed mid right rib fracture is noted. Impression: 1. Questionable parenchymal density within the left base. Difficult to exclude small area of pneumonia or even a nodule or mass. Noncontrast chest CT would be helpful to further evaluate. 2. Other findings which are believed to be incidental. Diagnostic code #3 This report was dictated in MDT
== END 2020-01-27 16:24 | disposition home or self-care (01) ==
LOC: JD.ED 13:50
DX: E11.649 Type 2 diabetes mellitus with hypoglycemia without coma (principal); D64.9 Anemia, unspecified; I10 Essential (primary) hypertension; K21.9 Gastro-esophageal reflux disease without esophagitis; F41.9 Anxiety disorder, unspecified; F32.9 Major depressive disorder, single episode, unspecified; Z86.718 Personal history of other venous thrombosis and embolism; Z86.711 Personal history of pulmonary embolism; M19.90 Unspecified osteoarthritis, unspecified site; Z90.49 Acquired absence of other specified parts of digestive tract; F17.210 Nicotine dependence, cigarettes, uncomplicated; Z88.5 Allergy status to narcotic agent; Z88.8 Allergy status to other drugs, medicaments and biological substances; Z79.899 Other long term (current) drug therapy
CPT/HCPCS: 36415; 71046; 71046-26; 80053; 82728; 82962; 83615; 83735; 84443; 84484; 85007; 85027; 93005; 93010; 99283; 99284-25

== ENCOUNTER 2020-02-29 19:49 | Observation (INO) | payer MEDICAID ==
[2020-02-29] MEDS ORDERED: 50% Dextrose in Water 50 ML Syringe IVPUSH ONE ×2 (19:56→21:06)
[2020-02-29] MEDS ORDERED: Sodium Chloride 0.9% 1,000 ML IV SCH (20:00)
[2020-02-29] MEDS ORDERED: Ketorolac 30 MG/ML SDV IVPUSH ONE (20:05)
--- NOTE | 2020-02-29 20:27 | EDM.PDOC ---
ED HPI GENERAL MEDICAL PROBLEM - General Chief Complaint: Diabetic Complaint Stated Complaint: JONATHAN AMB Time Seen by Provider: 02/29/20 19:53 Source of Information: Reports: Patient History Limitations: Reports: No Limitations - History of Present Illness INITIAL COMMENTS - FREE TEXT/NARRATIVE: Patient is a 59-year-old female brought in by [facility] for hypoglycemia. Patient has a history of diabetes, however when she had gastric bypass in 2007 to the diabetes resolved, however she still suffers from recurrent episodes of hypoglycemia. Patient also suffers from chronic anxiety and depression which was exacerbated by the recent passing of her . Patient verbalizes that today she ate some enchiladas around 10:00 this morning, however she has not eaten since that time. She is currently prescribed clonazepam 1 mg 3 times daily and she verbalized that she has taken all of her doses for the day. When asked what time she took them, she stated 8:00 this morning, 1:30 in the afternoon, and again at 530. In addition, patient took her gabapentin 300 mg with her clonazepam. She states that she did not eat today after 10:00 this morning because she had an upset stomach, however she denies any nausea, vomiting, diarrhea, or abdominal pain. She states she had a "rough day "which is why she took her third dose of clonazepam earlier than normal. States that she wanted to get some sleep. While lying in bed, patient states that she began to feel shaky and sweaty, so she had her daughter check her blood sugar. Blood sugar at home was found to be 24. She took 4 oral glucose tabs and her daughter called EMS. On arrival, her patient's blood sugar was 80. She denies any other symptoms such as chest pain, shortness of breath, fever, or chills. 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: Reports: IV/IO Lower Back Pain Score (Numeric/FACES): 3 - Related Data Allergies Allergy/AdvReac Type Severity Reaction Status Date / Time cephalexin Allergy Hives Verified 02/29/20 19:52 morphine Allergy Itching Verified 02/29/20 19:52 venlafaxine [From Effexor] Allergy Cannot Verified 02/29/20 19:52 Remember lisinopril AdvReac Muscle Verified 02/29/20 19:52 Aches Home Meds: Home Meds Gabapentin [Neurontin] 600 mg PO TID 06/22/19 [History] PARoxetine HCl [Paxil] 40 mg PO DAILY 06/22/19 [History] Pantoprazole Sodium [Protonix] 40 mg PO DAILY 06/22/19 [History] cloNIDine [Catapres] 0.1 mg PO BEDTIME PRN 06/22/19 [History] traZODone HCl [Trazodone HCl] 100 mg PO BEDTIME 06/24/19 [History] Losartan [Cozaar] 100 mg PO DAILY 12/16/19 [History] Chlorthalidone 25 mg PO DAILY 01/27/20 [History] Divalproex Sodium [Depakote] 500 mg PO BID 01/27/20 [History] Potassium Chloride [Klor-Con 10] 20 meq PO DAILY 01/27/20 [History] clonazePAM [Clonazepam] 1 mg PO TID 02/29/20 [History] Past Medical History HEENT History: Reports: Allergic Rhinitis, Impaired Vision Other HEENT History: wears glasses, dentures Cardiovascular History: Reports: Blood Clots/VTE/DVT, Hypertension Respiratory History: Reports: PE Gastrointestinal History: Reports: GERD, PUD, Other (See Below) Other Gastrointestinal History: Perotinitis, gastric ulcer Genitourinary History: Reports: None, UTI, Recurrent [employer] History: Reports: , Other (See Below) Other [employer]ANT History: hysterectomy Musculoskeletal History: Reports: Osteoarthritis Neurological History: Reports: Migraines, Seizure Psychiatric History: Reports: Addiction, Anxiety, Depression Endocrine/Metabolic History: Reports: Diabetes, Type II Other Endocrine/Metabolic History: Diabtetes type II prior to gastric procedure. 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 - Past Surgical History HEENT Surgical History: Reports: Oral Surgery GI Surgical History: Reports: Bariatric Procedure, Cholecystectomy, Hernia, Abdominal, Lysis of Adhesions Female Surgical History: Reports: Hysterectomy, Tubal Ligation Musculoskeletal Surgical History: Reports: Shoulder Surgery Social & Family History - Family History Family Medical History: Noncontributory - Tobacco Use Smoking Status *Q: Unknown Ever Smoked - Caffeine Use Caffeine Use: Reports: Coffee Caffeine Use Comment: unknown - Living Situation & Occupation Living situation: Reports: , with Family (Daughter + her 2 kids) Occupation: Disabled ED ROS GENERAL - Review of Systems Review Of Systems: See Below Constitutional: Reports: Decreased Appetite. Denies: Fever, Chills HEENT: Reports: No Symptoms Respiratory: Reports: No Symptoms. Denies: Shortness of Breath, Cough Cardiovascular: Reports: No Symptoms. Denies: Chest Pain Endocrine: Reports: No Symptoms GI/Abdominal: Reports: Other ("upset stomach"). Denies: Abdominal Pain, Nausea , Vomiting : Reports: No Symptoms Musculoskeletal: Reports: No Symptoms Skin: Reports: No Symptoms Neurological: Reports: Tremors Psychiatric: Reports: Anxiety Hematologic/Lymphatic: Reports: No Symptoms Immunologic: Reports: No Symptoms ED EXAM GENERAL NO PERIP PULSE - Physical Exam Exam: See Below Exam Limited By: No Limitations General Appearance: Alert, No Apparent Distress, Lethargic Respiratory/Chest: No Respiratory Distress, Lungs Clear, Normal Breath Sounds, No Accessory Muscle Use, Chest Non-Tender Cardiovascular: Normal Peripheral Pulses, Regular Rate, Rhythm, No Edema, No Gallop, No JVD, No Murmur, No Rub GI/Abdominal: Normal Bowel Sounds, Soft, Non-Tender, No Organomegaly, No Distention, No Abnormal Bruit, No Mass Neurological: Oriented, CN II-XII Intact, Normal Cognition, Normal Reflexes, No Motor/Sensory Deficits, Slow to Respond, Other (lethargic) Skin Exam: Warm, Dry, Intact, Normal Color, No Rash Course - Vital Signs Last Recorded V/S: Last Vital Signs Temp 97.6 F 02/29/20 21:16 Pulse 69 02/29/20 21:16 Resp 16 02/29/20 21:16 BP 95/62 02/29/20 21:16 Pulse Ox 95 02/29/20 21:16 - Orders/Labs/Meds Orders: Active Orders 24 hr Category Date Time Status Blood Glucose Check, Bedside [RC] ONETIME Care 02/29/20 20:30 Active Dextrose 5%-0.9% NaCl [Dextrose 5%-Normal Saline] 1,000 Med 02/29/20 21:15 Active ml IV ASDIRECTED Sodium Chloride 0.9% [Normal Saline] 1,000 ml Med 02/29/20 20:00 Active IV ASDIRECTED Medication Orders Sodium Chloride (Normal Saline) 1,000 mls @ 999 mls/hr IV ASDIRECTED JODI Last Admin: 02/29/20 20:02 Dose: 999 mls/hr Dextrose/Sodium Chloride (Dextrose 5%-Normal Saline) 1,000 mls @ 150 mls/hr IV ASDIRECTED JODI Last Admin: 02/29/20 21:13 Dose: 150 mls/hr Labs: Laboratory Tests 02/29/20 02/29/20 02/29/20 Range/Units 19:54 20:21 20:21 WBC 6.08 (3.98-10.04) K/mm3 RBC 3.07 L (3.98-5.22) M/mm3 Hgb 8.4 L (11.2-15.7) gm/dl Hct 26.9 L (34.1-44.9) % MCV 87.6 (79.4-94.8) fl MCH 27.4 (25.6-32.2) pg MCHC 31.2 L (32.2-35.5) g/dl RDW Std Deviation 55.2 H (36.4-46.3) fL Plt Count 186 D (182-369) K/mm3 MPV 10.1 (9.4-12.3) fl Neut % (Auto) 56.0 (34.0-71.1) % Lymph % (Auto) 30.9 (19.3-51.7) % [place] % (Auto) 11.2 (4.7-12.5) % Eos % (Auto) 1.6 (0.7-5.8) Baso % (Auto) 0.3 (0.1-1.2) % Neut # (Auto) 3.40 (1.56-6.13) K/mm3 Lymph # (Auto) 1.88 (1.18-3.74) K/mm3 [place] # (Auto) 0.68 H (0.24-0.36) K/mm3 Eos # (Auto) 0.10 (0.04-0.36) K/mm3 Baso # (Auto) 0.02 (0.01-0.08) K/mm3 Sodium 129 L (136-145) mEq/L Potassium 3.3 L (3.5-5.1) mEq/L Chloride 95 L (98-107) mEq/L Carbon Dioxide 25 (21-32) mEq/L Anion Gap 12.3 (5-15) BUN 23 H (7-18) mg/dL Creatinine 1.1 H (0.55-1.02) mg/dL Est Cr Clr Drug Dosing 40.53 mL/min Estimated GFR (MDRD) 51 (>60) mL/min BUN/Creatinine Ratio 20.9 H (14-18) Glucose 99 (74-106) mg/dL POC Glucose 59 L (70-105) mg/dL Calcium 7.4 L (8.5-10.1) mg/dL Magnesium 1.7 L (1.8-2.4) mg/dl Total Bilirubin 0.2 (0.2-1.0) mg/dL AST 14 L (15-37) U/L ALT 12 L (14-59) U/L Alkaline Phosphatase 32 L (46-116) U/L Total Protein 5.6 L (6.4-8.2) g/dl Albumin 2.8 L (3.4-5.0) g/dl Globulin 2.8 gm/dL Albumin/Globulin Ratio 1.0 (1-2) 02/29/20 02/29/20 Range/Units 20:21 21:05 WBC (3.98-10.04) K/mm3 RBC (3.98-5.22) M/mm3 Hgb (11.2-15.7) gm/dl Hct (34.1-44.9) % MCV (79.4-94.8) fl MCH (25.6-32.2) pg MCHC (32.2-35.5) g/dl RDW Std Deviation (36.4-46.3) fL Plt Count (182-369) K/mm3 MPV (9.4-12.3) fl Neut % (Auto) (34.0-71.1) % Lymph % (Auto) (19.3-51.7) % [place] % (Auto) (4.7-12.5) % Eos % (Auto) (0.7-5.8) Baso % (Auto) (0.1-1.2) % Neut # (Auto) (1.56-6.13) K/mm3 Lymph # (Auto) (1.18-3.74) K/mm3 [place] # (Auto) (0.24-0.36) K/mm3 Eos # (Auto) (0.04-0.36) K/mm3 Baso # (Auto) (0.01-0.08) K/mm3 Sodium (136-145) mEq/L Potassium (3.5-5.1) mEq/L Chloride (98-107) mEq/L Carbon Dioxide (21-32) mEq/L Anion Gap (5-15) BUN (7-18) mg/dL Creatinine (0.55-1.02) mg/dL Est Cr Clr Drug Dosing mL/min Estimated GFR (MDRD) (>60) mL/min BUN/Creatinine Ratio (14-18) Glucose (74-106) mg/dL POC Glucose 103 59 L (70-105) mg/dL Calcium (8.5-10.1) mg/dL Magnesium (1.8-2.4) mg/dl Total Bilirubin (0.2-1.0) mg/dL AST (15-37) U/L ALT (14-59) U/L Alkaline Phosphatase (46-116) U/L Total Protein (6.4-8.2) g/dl Albumin (3.4-5.0) g/dl Globulin gm/dL Albumin/Globulin Ratio (1-2) Meds: Medications Generic Name Dose Route Start Last Admin Trade Name Freq PRN Reason Stop Dose Admin Sodium Chloride 1,000 mls @ 999 mls/hr 02/29/20 20:00 02/29/20 20:02 Normal Saline IV 999 mls/hr ASDIRECTED JODI Administration Dextrose/Sodium Chloride 1,000 mls @ 150 mls/hr 02/29/20 21:15 02/29/20 21:13 Dextrose 5%-Normal Saline IV 150 mls/hr ASDIRECTED JODI Administration Discontinued Medications Generic Name Dose Route Start Last Admin Trade Name Freq PRN Reason Stop Dose Admin Dextrose/Water 50 ml 02/29/20 19:56 02/29/20 20:00 Dextrose 50% In Water IVPUSH 02/29/20 19:57 50 ml ONETIME ONE Administration Dextrose/Water 25 ml 02/29/20 21:06 02/29/20 21:10 Dextrose 50% In Water IVPUSH 02/29/20 21:07 25 ml ONETIME ONE Administration Ketorolac Tromethamine 30 mg 02/29/20 20:05 02/29/20 20:15 Toradol IVPUSH 02/29/20 20:06 30 mg ONETIME ONE Administration - Re-Assessments/Exams Free Text/Narrative Re-Assessment/Exam: On triage, patient's glucose was found to be 59. I have ordered 50 mils of IV D50. Patient's lood pressure was found to be low at 91/61. Have ordered a 1 L bolus of normal saline. We will complete a CBC, CMP, magnesium. Patient will be encouraged to eat an attempt to maintain her blood sugars. 02/29/20 21:23 Hematology was significant for a hemoglobin of 8.4, sodium 129, potassium 3.3, BUN 23, creatinine 1.1, magnesium 1.7. Patient does have a history of chronic anemia but states that she has never required blood transfusions. She is unsure of when her blood work was last checked by her primary care provider. She was able to eat half of a turkey sandwich and a couple bites of fruit, however she remains quite lethargic. She will wake up to answer questions, however falls back asleep very quickly. Recheck of her blood sugar after she ate was 59. I have ordered an additional 25 mils of D50 as well as D5NS at 150. I have contacted hospitalist, Dr. Omer, to discuss admission. He is here to see the patient at this time. 02/29/20 21:30 Dr. Omer accepted pt for admission to observation. Departure - Departure Time of Disposition: 21:30 Disposition: Refer to Observation Condition: Fair Clinical Impression: Hypoglycemia, Polypharmacy, Hyponatremia Hypotension Qualifiers: Hypotension type: other hypotension type Qualified Code(s): I95.89 - Other hypotension - Discharge Information Forms: ED Department Discharge Sepsis Event Note - Evaluation Sepsis Screening Result: No Definite Risk - Focused Exam Vital Signs: Vital Signs Temp Pulse Resp BP Pulse Ox 02/29/20 21:16 97.6 F 69 16 95/62 95 02/29/20 19:52 97.1 F 71 17 91/61 96 Date Exam was Performed: 02/29/20 Time Exam was Performed: 21:36 - My Orders Last 24 Hours: My Active Orders 02/29/20 20:00 Sodium Chloride 0.9% [Normal Saline] 1,000 ml IV ASDIRECTED 02/29/20 20:30 Blood Glucose Check, Bedside [RC] ONETIME 02/29/20 21:15 Dextrose 5%-0.9% NaCl [Dextrose 5%-Normal Saline] 1,000 ml IV ASDIRECTED - Assessment/Plan Last 24 Hours: My Active Orders 02/29/20 20:00 Sodium Chloride 0.9% [Normal Saline] 1,000 ml IV ASDIRECTED 02/29/20 20:30 Blood Glucose Check, Bedside [RC] ONETIME 02/29/20 21:15 Dextrose 5%-0.9% NaCl [Dextrose 5%-Normal Saline] 1,000 ml IV ASDIRECTED
[2020-02-29] MEDS ORDERED: Dextrose 5%-0.9% NaCl 1,000 ML IV SCH (21:15)
[2020-02-29] MEDS ORDERED: Ondansetron 4 MG Tab.DIS PO PRN (21:40)
[2020-02-29] MEDS ORDERED: Dextrose 5%-0.45% NaCl 1,000 ML IV SCH (21:45)
--- NOTE | 2020-02-29 21:51 | PCM.HP.2 ---
H&P History of Present Illness - General Date of Service: 02/29/20 Admit Problem/Dx: Admission Diagnosis/Problem Admission Diagnosis/Problem Altered level of consciousness Source of Information: Patient History Limitations: Reports: Altered Mental Status, Other (lethargic) - History of Present Illness Initial Comments - Free Text/Narative: The patient is a 59-year-old lady who has presented to the emergency department with concern for severe hypoglycemia. The patient had blood sugar checked at home and was found to be in the mid 40s and she ate some glucose tablets to help with her sugars. Her blood sugars documented in the emergency department were low at 59 mg/dL. She was given multiple doses of D50 as well as starting on D5 quarter normal saline. Patient also admits to being under severe stress lately. Patient's last month and she had to put 2 of her dogs to sleep. Patient is currently living with her daughter and her daughter's 2 children. The patient also took her afternoon dose of clonazepam and she wanted to go to bed earlier in the afternoon so she took her evening dose of clonazepam. In the emergency department the patient was noted to be lethargic but alert and oriented and falling asleep during the middle of questions. Patient has had episodes of hypoglycemia that have not been resolved since her gastric bypass in 2007. The patient has denied any suicidal ideation. The patient has denied any pain. She has had no nausea or vomiting associated with the hypoglycemia. Onset of Symptoms: Reports: Gradual, Unknown/Unsure Duration of Symptoms: Reports: Hour(s): Location: Reports: Generalized Improves with: Reports: None Worsens with: Reports: None Associated Symptoms: Reports: Confusion Lower Back Pain Score (Numeric/FACES): 3 - Related Data Allergies/Adverse Reactions: Allergies Allergy/AdvReac Type Severity Reaction Status Date / Time cephalexin Allergy Hives Verified 02/29/20 19:52 morphine Allergy Itching Verified 02/29/20 19:52 venlafaxine [From Effexor] Allergy Cannot Verified 02/29/20 19:52 Remember lisinopril AdvReac Muscle Verified 02/29/20 19:52 Aches Home Medications: Home Meds Gabapentin [Neurontin] 600 mg PO TID 06/22/19 [History] PARoxetine HCl [Paxil] 40 mg PO DAILY 06/22/19 [History] Pantoprazole Sodium [Protonix] 40 mg PO DAILY 06/22/19 [History] cloNIDine [Catapres] 0.1 mg PO BEDTIME PRN 06/22/19 [History] traZODone HCl [Trazodone HCl] 100 mg PO BEDTIME 06/24/19 [History] Losartan [Cozaar] 100 mg PO DAILY 12/16/19 [History] Chlorthalidone 25 mg PO DAILY 01/27/20 [History] Divalproex Sodium [Depakote] 500 mg PO BID 01/27/20 [History] Potassium Chloride [Klor-Con 10] 20 meq PO DAILY 01/27/20 [History] clonazePAM [Clonazepam] 1 mg PO TID 02/29/20 [History] Past Medical History HEENT History: Reports: Allergic Rhinitis, Impaired Vision Other HEENT History: wears glasses, dentures Cardiovascular History: Reports: Blood Clots/VTE/DVT, Hypertension Respiratory History: Reports: PE Gastrointestinal History: Reports: GERD, PUD, Other (See Below) Other Gastrointestinal History: Perotinitis, gastric ulcer Genitourinary History: Reports: None, UTI, Recurrent [employer] History: Reports: , Other (See Below) Other OB/BYN History: hysterectomy Musculoskeletal History: Reports: Osteoarthritis Neurological History: Reports: Migraines, Seizure Psychiatric History: Reports: Addiction, Anxiety, Depression Endocrine/Metabolic History: Reports: Diabetes, Type II Other Endocrine/Metabolic History: Diabtetes type II prior to gastric procedure. 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 - Past Surgical History HEENT Surgical History: Reports: Oral Surgery GI Surgical History: Reports: Bariatric Procedure, Cholecystectomy, Hernia, Abdominal, Lysis of Adhesions Female Surgical History: Reports: Hysterectomy, Tubal Ligation Musculoskeletal Surgical History: Reports: Shoulder Surgery Social & Family History - Family History Family Medical History: Noncontributory - Tobacco Use Smoking Status *Q: Unknown Ever Smoked - Caffeine Use Caffeine Use: Reports: Coffee Caffeine Use Comment: unknown - Living Situation & Occupation Living situation: Reports: , with Family (Daughter + her 2 kids) Occupation: Disabled H&P Review of Systems - Review of Systems: Review Of Systems: See Below General: Reports: Weakness, Fatigue HEENT: Reports: No Symptoms Pulmonary: Reports: No Symptoms Cardiovascular: Reports: No Symptoms Gastrointestinal: Reports: No Symptoms Genitourinary: Reports: No Symptoms Musculoskeletal: Reports: No Symptoms Skin: Reports: No Symptoms Psychiatric: Reports: Depression, Anxiety Neurological: Reports: No Symptoms Hematologic/Lymphatic: Reports: No Symptoms Immunologic: Reports: No Symptoms Exam - Exam Exam: See Below - Vital Signs Vital Signs: Last Vital Signs Temp 36.4 C 02/29/20 21:16 Pulse 69 02/29/20 21:16 Resp 16 02/29/20 21:16 BP 95/62 02/29/20 21:16 Pulse Ox 95 02/29/20 21:16 Weight: 75.75 kg - Exam Quality Assessment: No: Supplemental Oxygen General: Alert, Cooperative, Lethargic HEENT: Conjunctiva Clear, EACs Clear, EOMI, Hearing Intact, Pupils Equal, Pupils Reactive, PERRLA. No: Mucosa Moist & Octa (Dry, full dentures) Neck: Supple, Trachea Midline. No: Lymphadenopathy Lungs: Clear to Auscultation, Normal Respiratory Effort Cardiovascular: Regular Rate, Regular Rhythm, Normal S1, Normal S2 GI/Abdominal Exam: Normal Bowel Sounds, Soft, Non-Tender, No Distention (Female) Exam: Deferred Rectal (Female) Exam: Deferred Back Exam: Normal Inspection Extremities: Normal Inspection, No Pedal Edema Skin: Warm, Dry, Intact Neurological: Cranial Nerves Intact Neuro Extensive - Mental Status: Alert, Oriented x3 Psychiatric: Alert, Depressed. No: Suicidal Ideation - Patient Data Lab Results Last 24 hrs: Laboratory Results - last 24 hr 02/29/20 02/29/20 02/29/20 Range/Units 19:54 20:21 20:21 WBC 6.08 (3.98-10.04) K/mm3 RBC 3.07 L (3.98-5.22) M/mm3 Hgb 8.4 L (11.2-15.7) gm/dl Hct 26.9 L (34.1-44.9) % MCV 87.6 (79.4-94.8) fl MCH 27.4 (25.6-32.2) pg MCHC 31.2 L (32.2-35.5) g/dl RDW Std Deviation 55.2 H (36.4-46.3) fL Plt Count 186 D (182-369) K/mm3 MPV 10.1 (9.4-12.3) fl Neut % (Auto) 56.0 (34.0-71.1) % Lymph % (Auto) 30.9 (19.3-51.7) % Barton % (Auto) 11.2 (4.7-12.5) % Eos % (Auto) 1.6 (0.7-5.8) Baso % (Auto) 0.3 (0.1-1.2) % Neut # (Auto) 3.40 (1.56-6.13) K/mm3 Lymph # (Auto) 1.88 (1.18-3.74) K/mm3 Barton # (Auto) 0.68 H (0.24-0.36) K/mm3 Eos # (Auto) 0.10 (0.04-0.36) K/mm3 Baso # (Auto) 0.02 (0.01-0.08) K/mm3 Sodium 129 L (136-145) mEq/L Potassium 3.3 L (3.5-5.1) mEq/L Chloride 95 L (98-107) mEq/L Carbon Dioxide 25 (21-32) mEq/L Anion Gap 12.3 (5-15) BUN 23 H (7-18) mg/dL Creatinine 1.1 H (0.55-1.02) mg/dL Est Cr Clr Drug Dosing 40.53 mL/min Estimated GFR (MDRD) 51 (>60) mL/min BUN/Creatinine Ratio 20.9 H (14-18) Glucose 99 (74-106) mg/dL POC Glucose 59 L (70-105) mg/dL Calcium 7.4 L (8.5-10.1) mg/dL Magnesium 1.7 L (1.8-2.4) mg/dl Total Bilirubin 0.2 (0.2-1.0) mg/dL AST 14 L (15-37) U/L ALT 12 L (14-59) U/L Alkaline Phosphatase 32 L (46-116) U/L Total Protein 5.6 L (6.4-8.2) g/dl Albumin 2.8 L (3.4-5.0) g/dl Globulin 2.8 gm/dL Albumin/Globulin Ratio 1.0 (1-2) 02/29/20 02/29/20 Range/Units 20:21 21:05 WBC (3.98-10.04) K/mm3 RBC (3.98-5.22) M/mm3 Hgb (11.2-15.7) gm/dl Hct (34.1-44.9) % MCV (79.4-94.8) fl MCH (25.6-32.2) pg MCHC (32.2-35.5) g/dl RDW Std Deviation (36.4-46.3) fL Plt Count (182-369) K/mm3 MPV (9.4-12.3) fl Neut % (Auto) (34.0-71.1) % Lymph % (Auto) (19.3-51.7) % Barton % (Auto) (4.7-12.5) % Eos % (Auto) (0.7-5.8) Baso % (Auto) (0.1-1.2) % Neut # (Auto) (1.56-6.13) K/mm3 Lymph # (Auto) (1.18-3.74) K/mm3 Barton # (Auto) (0.24-0.36) K/mm3 Eos # (Auto) (0.04-0.36) K/mm3 Baso # (Auto) (0.01-0.08) K/mm3 Sodium (136-145) mEq/L Potassium (3.5-5.1) mEq/L Chloride (98-107) mEq/L Carbon Dioxide (21-32) mEq/L Anion Gap (5-15) BUN (7-18) mg/dL Creatinine (0.55-1.02) mg/dL Est Cr Clr Drug Dosing mL/min Estimated GFR (MDRD) (>60) mL/min BUN/Creatinine Ratio (14-18) Glucose (74-106) mg/dL POC Glucose 103 59 L (70-105) mg/dL Calcium (8.5-10.1) mg/dL Magnesium (1.8-2.4) mg/dl Total Bilirubin (0.2-1.0) mg/dL AST (15-37) U/L ALT (14-59) U/L Alkaline Phosphatase (46-116) U/L Total Protein (6.4-8.2) g/dl Albumin (3.4-5.0) g/dl Globulin gm/dL Albumin/Globulin Ratio (1-2) Result Diagrams: 02/29/20 20:21 02/29/20 20:21 Sepsis Event Note - Evaluation Sepsis Screening Result: No Definite Risk Current Stage of Sepsis: Ruled Out Reason for Ruling Out Sepsis: No infection - Focused Exam Vital Signs: Vital Signs Temp Pulse Resp BP Pulse Ox 02/29/20 21:16 36.4 C 69 16 95/62 95 02/29/20 19:52 36.2 C 71 17 91/61 96 Date Exam was Performed: 02/29/20 Time Exam was Performed: 21:56 - Problem List (1) Altered mental status SNOMED Code(s): 734951277 ICD Code: R41.82 - ALTERED MENTAL STATUS, UNSPECIFIED Status: Acute Priority: High Current Visit: Yes Qualifiers: Altered mental status type: disorientation Qualified Code(s): R41.0 - Disorientation, unspecified (2) Anemia SNOMED Code(s): 457653590 ICD Code: D64.9 - ANEMIA, UNSPECIFIED Status: Acute Current Visit: No Qualifiers: Anemia type: unspecified type Qualified Code(s): D64.9 - Anemia, unspecified (3) Polysubstance overdose SNOMED Code(s): 83408973 ICD Code: T50.901A - POISONING BY UNSP DRUG/MEDS/BIOL SUBST, ACCIDENTAL, INIT Status: Chronic Priority: High Current Visit: Yes Qualifiers: Encounter type: initial encounter Injury intent: accidental or unintentional Qualified Code(s): T50.901A - Poisoning by unspecified drugs, medicaments and biological substances, accidental (unintentional), initial encounter (4) Hypomagnesemia SNOMED Code(s): 104999495 ICD Code: E83.42 - HYPOMAGNESEMIA Status: Chronic Priority: Medium Current Visit: Yes (5) Hyponatremia SNOMED Code(s): 72113923 ICD Code: E87.1 - HYPO-OSMOLALITY AND HYPONATREMIA Status: Chronic Priority: Medium Current Visit: Yes (6) Hypoglycemia SNOMED Code(s): 452550460 ICD Code: E16.2 - HYPOGLYCEMIA, UNSPECIFIED Status: Chronic Priority: High Current Visit: Yes (7) Hypotension SNOMED Code(s): 62948396 ICD Code: I95.9 - HYPOTENSION, UNSPECIFIED Status: Chronic Priority: High Current Visit: Yes Qualifiers: Hypotension type: other hypotension type Qualified Code(s): I95.89 - Other hypotension (8) Hypokalemia SNOMED Code(s): 39779495 ICD Code: E87.6 - HYPOKALEMIA Status: Chronic Priority: Medium Current Visit: Yes Problem List Initiated/Reviewed/Updated: Yes Orders Last 24hrs: Active Orders 24 hr Category Date Time Status Patient Status [ADT] Routine ADT 02/29/20 21:41 Active Blood Glucose Check, Bedside [RC] ONETIME Care 02/29/20 20:30 Active Blood Glucose Check, Bedside [RC] Q3HR Care 02/29/20 21:40 Active Communication, Vaccine [RC] PER UNIT ROUTINE Care 02/29/20 21:46 Active Oxygen Therapy [RC] PRN Care 02/29/20 21:41 Active Up ad Nova [RC] ASDIRECTED Care 02/29/20 21:40 Active VTE/DVT Education [RC] PER UNIT ROUTINE Care 02/29/20 21:41 Active Vaccines to be Administered [RC] PER UNIT ROUTINE Care 02/29/20 21:46 Active Vital Signs [RC] Q4H Care 02/29/20 21:41 Active Heart Healthy Diet [DIET] Diet 03/01/20 Breakfast Active CBC WITH AUTO DIFF [HEME] AM Lab 03/01/20 05:11 Ordered COMPREHENSIVE METABOLIC PN,CMP [CHEM] AM Lab 03/01/20 05:11 Ordered Acetaminophen [Tylenol] Med 02/29/20 21:40 Active 650 mg PO Q4H PRN Chlorthalidone Med 03/01/20 09:00 Active 25 mg PO DAILY Dextrose 5%-0.45% NaCl [Dextrose 5%-1/2 NS] 1,000 ml Med 02/29/20 21:45 Active IV ASDIRECTED Dextrose 5%-0.9% NaCl [Dextrose 5%-Normal Saline] 1,000 Med 02/29/20 21:15 Active ml IV ASDIRECTED Gabapentin [Neurontin] Med 03/01/20 09:00 Active 600 mg PO TID Heparin Sodium Med 02/29/20 21:45 Active 5,000 units SUBCUT Q8H Losartan [Cozaar] Med 03/01/20 09:00 Active 100 mg PO DAILY Ondansetron [Zofran ODT] Med 02/29/20 21:40 Active 4 mg PO Q4H PRN PARoxetine HCl [Paxil] Med 03/01/20 09:00 Active 40 mg PO DAILY Pantoprazole [ProTONIX] Med 03/01/20 09:00 Active 40 mg PO DAILY Potassium Chloride [Klor-Con 10] Med 03/01/20 09:00 Active 20 meq PO DAILY Sodium Chloride 0.9% [Normal Saline] 1,000 ml Med 02/29/20 20:00 Active IV ASDIRECTED GM Immunization Reflex [OM.PC] Click To Edit Oth 02/29/20 21:40 Ordered Resuscitation Status Routine Resus Stat 02/29/20 21:40 Ordered Medication Orders Acetaminophen (Tylenol) 650 mg PO Q4H PRN PRN Reason: Pain (Mild 1-3)/fever Chlorthalidone (Chlorthalidone) 25 mg PO DAILY [facility] Gabapentin (Neurontin) 600 mg PO TID JODI Heparin Sodium (Porcine) (Heparin Sodium) 5,000 units SUBCUT Q8H JODI Sodium Chloride (Normal Saline) 1,000 mls @ 999 mls/hr IV ASDIRECTED JODI Last Admin: 02/29/20 20:02 Dose: 999 mls/hr Dextrose/Sodium Chloride (Dextrose 5%-Normal Saline) 1,000 mls @ 150 mls/hr IV ASDIRECTED JODI Last Admin: 02/29/20 21:13 Dose: 150 mls/hr Dextrose/Sodium Chloride (Dextrose 5%-1/2 Ns) 1,000 mls @ 125 mls/hr IV ASDIRECTED JODI Losartan Potassium (Cozaar) 100 mg PO DAILY [facility] Non-Formulary Medication (Paroxetine Hcl [Paxil]) 40 mg PO DAILY [facility] Ondansetron HCl (Zofran Odt) 4 mg PO Q4H PRN PRN Reason: nausea, able to take PO Pantoprazole Sodium (Protonix) 40 mg PO DAILY [facility] Potassium Chloride (Klor-Con 10) 20 meq PO DAILY [facility] Assessment/Plan Comment:: The patient will be admitted to observation. This is primarily due to her lethargy. Patient also has exhibited multiple electrolyte abnormalities and these all be replaced along with IV fluids. Patient has had episodes of severe hypoglycemia and she will be maintained on D5 and quarter normal saline to help improve her fluid status as well as improve her hyponatremia. The patient's sedating medications have been held. Patient has also been noted to be make and repeat laboratory studies have been ordered for the morning after her hemoglobin as well as electrolyte abnormalities. The patient's magnesium will also be replaced in order to help her hypokalemia. The patient is not suicidal at this time but likely she will need to have outpatient therapy and counseling for her depression, anxiety and recent loss of her . The patient also has mild renal insufficiency and she will be placed on DVT prophylaxis with the use of Lovenox. Patient has been encouraged to ambulate. She also be kept on the heart healthy diet while here. I suspect that once the patient's electrolytes had improved and the patient's less lethargic that she will be likely appropriate for discharge in the morning. - Mortality Measure Prognosis:: Good
[2020-02-29] MEDS: Heparin Sodium 5,000 Units/ML Vial SUBCUT SCH (23:09)
[2020-03-01] MEDS ORDERED: Potassium Chloride 10 MEQ in Premix Bag 1 BAG IV SCH (02:30)
[2020-03-01] MEDS: Potassium Chloride 10 MEQ in Premix Bag 1 BAG IV SCH ×3 (04:46→07:11)
[2020-03-01] MEDS: Heparin Sodium 5,000 Units/ML Vial SUBCUT SCH ×3 (05:12→20:57)
[2020-03-01] MEDS ORDERED: Magnesium Hydroxide 400 MG/5 ML Susp 30 ML Cup PO ONE (05:45)
[2020-03-01] MEDS: Pantoprazole 40 MG Tab.CR PO SCH (08:36)
[2020-03-01] MEDS: Gabapentin 600 MG Tab PO SCH ×3 (08:40→20:57)
[2020-03-01] MEDS: Losartan 100 MG Tab PO SCH (08:40)
[2020-03-01] MEDS: Chlorthalidone 25 MG Tab PO SCH (08:41)
[2020-03-01] MEDS ORDERED: Non-Formulary Medication 1 Each (Paroxetine Hcl [Paxil] 40 MG) PO SCH (09:00)
[2020-03-01] MEDS ORDERED: Potassium Chloride 10 MEQ Tab.ER PO SCH (09:00)
[2020-03-01] MEDS ORDERED: PARoxetine 20 MG Tab PO SCH (09:00)
--- NOTE | 2020-03-01 09:38 | PCM.PN ---
- General Info Date of Service: 03/01/20 Admission Dx/Problem (Free Text): Admission Diagnosis/Problem Admission Diagnosis/Problem Altered level of consciousness - Patient Data Vitals - Most Recent: Last Vital Signs Temp 98.2 F 03/01/20 08:37 Pulse 63 03/01/20 08:37 Resp 16 03/01/20 08:37 BP 131/84 03/01/20 08:40 Pulse Ox 98 03/01/20 08:37 Weight - Most Recent: 175 lb 6.4 oz I&O - Last 24 Hours: Intake & Output 02/29/20 03/01/20 03/01/20 22:59 06:59 14:59 Intake Total 850 Output Total 700 Balance 150 Lab Results Last 24 Hours: Laboratory Results - last 24 hr 02/29/20 02/29/20 02/29/20 Range/Units 19:54 20:21 20:21 WBC 6.08 (3.98-10.04) K/mm3 RBC 3.07 L (3.98-5.22) M/mm3 Hgb 8.4 L (11.2-15.7) gm/dl Hct 26.9 L (34.1-44.9) % MCV 87.6 (79.4-94.8) fl MCH 27.4 (25.6-32.2) pg MCHC 31.2 L (32.2-35.5) g/dl RDW Std Deviation 55.2 H (36.4-46.3) fL Plt Count 186 D (182-369) K/mm3 MPV 10.1 (9.4-12.3) fl Neut % (Auto) 56.0 (34.0-71.1) % Lymph % (Auto) 30.9 (19.3-51.7) % [place] % (Auto) 11.2 (4.7-12.5) % Eos % (Auto) 1.6 (0.7-5.8) Baso % (Auto) 0.3 (0.1-1.2) % Neut # (Auto) 3.40 (1.56-6.13) K/mm3 Lymph # (Auto) 1.88 (1.18-3.74) K/mm3 [place] # (Auto) 0.68 H (0.24-0.36) K/mm3 Eos # (Auto) 0.10 (0.04-0.36) K/mm3 Baso # (Auto) 0.02 (0.01-0.08) K/mm3 Sodium 129 L (136-145) mEq/L Potassium 3.3 L (3.5-5.1) mEq/L Chloride 95 L (98-107) mEq/L Carbon Dioxide 25 (21-32) mEq/L Anion Gap 12.3 (5-15) BUN 23 H (7-18) mg/dL Creatinine 1.1 H (0.55-1.02) mg/dL Est Cr Clr Drug Dosing 40.53 mL/min Estimated GFR (MDRD) 51 (>60) mL/min BUN/Creatinine Ratio 20.9 H (14-18) Glucose 99 (74-106) mg/dL POC Glucose 59 L (70-105) mg/dL Calcium 7.4 L (8.5-10.1) mg/dL Magnesium 1.7 L (1.8-2.4) mg/dl Total Bilirubin 0.2 (0.2-1.0) mg/dL AST 14 L (15-37) U/L ALT 12 L (14-59) U/L Alkaline Phosphatase 32 L (46-116) U/L Total Protein 5.6 L (6.4-8.2) g/dl Albumin 2.8 L (3.4-5.0) g/dl Globulin 2.8 gm/dL Albumin/Globulin Ratio 1.0 (1-2) 02/29/20 02/29/20 02/29/20 Range/Units 20:21 21:05 21:29 WBC (3.98-10.04) K/mm3 RBC (3.98-5.22) M/mm3 Hgb (11.2-15.7) gm/dl Hct (34.1-44.9) % MCV (79.4-94.8) fl MCH (25.6-32.2) pg MCHC (32.2-35.5) g/dl RDW Std Deviation (36.4-46.3) fL Plt Count (182-369) K/mm3 MPV (9.4-12.3) fl Neut % (Auto) (34.0-71.1) % Lymph % (Auto) (19.3-51.7) % [place] % (Auto) (4.7-12.5) % Eos % (Auto) (0.7-5.8) Baso % (Auto) (0.1-1.2) % Neut # (Auto) (1.56-6.13) K/mm3 Lymph # (Auto) (1.18-3.74) K/mm3 [place] # (Auto) (0.24-0.36) K/mm3 Eos # (Auto) (0.04-0.36) K/mm3 Baso # (Auto) (0.01-0.08) K/mm3 Sodium (136-145) mEq/L Potassium (3.5-5.1) mEq/L Chloride (98-107) mEq/L Carbon Dioxide (21-32) mEq/L Anion Gap (5-15) BUN (7-18) mg/dL Creatinine (0.55-1.02) mg/dL Est Cr Clr Drug Dosing mL/min Estimated GFR (MDRD) (>60) mL/min BUN/Creatinine Ratio (14-18) Glucose (74-106) mg/dL POC Glucose 103 59 L 95 (70-105) mg/dL Calcium (8.5-10.1) mg/dL Magnesium (1.8-2.4) mg/dl Total Bilirubin (0.2-1.0) mg/dL AST (15-37) U/L ALT (14-59) U/L Alkaline Phosphatase (46-116) U/L Total Protein (6.4-8.2) g/dl Albumin (3.4-5.0) g/dl Globulin gm/dL Albumin/Globulin Ratio (1-2) 03/01/20 03/01/20 03/01/20 Range/Units 00:40 03:21 03:43 WBC (3.98-10.04) K/mm3 RBC (3.98-5.22) M/mm3 Hgb (11.2-15.7) gm/dl Hct (34.1-44.9) % MCV (79.4-94.8) fl MCH (25.6-32.2) pg MCHC (32.2-35.5) g/dl RDW Std Deviation (36.4-46.3) fL Plt Count (182-369) K/mm3 MPV (9.4-12.3) fl Neut % (Auto) (34.0-71.1) % Lymph % (Auto) (19.3-51.7) % [place] % (Auto) (4.7-12.5) % Eos % (Auto) (0.7-5.8) Baso % (Auto) (0.1-1.2) % Neut # (Auto) (1.56-6.13) K/mm3 Lymph # (Auto) (1.18-3.74) K/mm3 [place] # (Auto) (0.24-0.36) K/mm3 Eos # (Auto) (0.04-0.36) K/mm3 Baso # (Auto) (0.01-0.08) K/mm3 Sodium (136-145) mEq/L Potassium (3.5-5.1) mEq/L Chloride (98-107) mEq/L Carbon Dioxide (21-32) mEq/L Anion Gap (5-15) BUN (7-18) mg/dL Creatinine (0.55-1.02) mg/dL Est Cr Clr Drug Dosing mL/min Estimated GFR (MDRD) (>60) mL/min BUN/Creatinine Ratio (14-18) Glucose (74-106) mg/dL POC Glucose 103 79 97 (70-105) mg/dL Calcium (8.5-10.1) mg/dL Magnesium (1.8-2.4) mg/dl Total Bilirubin (0.2-1.0) mg/dL AST (15-37) U/L ALT (14-59) U/L Alkaline Phosphatase (46-116) U/L Total Protein (6.4-8.2) g/dl Albumin (3.4-5.0) g/dl Globulin gm/dL Albumin/Globulin Ratio (1-2) 03/01/20 03/01/20 03/01/20 Range/Units 04:53 04:53 06:10 WBC 5.75 (3.98-10.04) K/mm3 RBC 3.15 L (3.98-5.22) M/mm3 Hgb 8.5 L (11.2-15.7) gm/dl Hct 27.3 L (34.1-44.9) % MCV 86.7 (79.4-94.8) fl MCH 27.0 (25.6-32.2) pg MCHC 31.1 L (32.2-35.5) g/dl RDW Std Deviation 55.2 H (36.4-46.3) fL Plt Count 189 (182-369) K/mm3 MPV 10.3 (9.4-12.3) fl Neut % (Auto) 45.3 (34.0-71.1) % Lymph % (Auto) 44.2 (19.3-51.7) % [place] % (Auto) 8.3 (4.7-12.5) % Eos % (Auto) 1.9 (0.7-5.8) Baso % (Auto) 0.3 (0.1-1.2) % Neut # (Auto) 2.60 (1.56-6.13) K/mm3 Lymph # (Auto) 2.54 (1.18-3.74) K/mm3 [place] # (Auto) 0.48 H (0.24-0.36) K/mm3 Eos # (Auto) 0.11 (0.04-0.36) K/mm3 Baso # (Auto) 0.02 (0.01-0.08) K/mm3 Sodium 128 L (136-145) mEq/L Potassium 4.4 (3.5-5.1) mEq/L Chloride 96 L (98-107) mEq/L Carbon Dioxide 28 (21-32) mEq/L Anion Gap 8.4 (5-15) BUN 20 H (7-18) mg/dL Creatinine 0.9 (0.55-1.02) mg/dL Est Cr Clr Drug Dosing 64.56 mL/min Estimated GFR (MDRD) > 60 (>60) mL/min BUN/Creatinine Ratio 22.2 H (14-18) Glucose 76 (74-106) mg/dL POC Glucose 81 (70-105) mg/dL Calcium 7.5 L (8.5-10.1) mg/dL Magnesium (1.8-2.4) mg/dl Total Bilirubin 0.2 (0.2-1.0) mg/dL AST 13 L (15-37) U/L ALT 15 (14-59) U/L Alkaline Phosphatase 32 L (46-116) U/L Total Protein 5.3 L (6.4-8.2) g/dl Albumin 2.6 L (3.4-5.0) g/dl Globulin 2.7 gm/dL Albumin/Globulin Ratio 1.0 (1-2) 03/01/20 Range/Units 08:52 WBC (3.98-10.04) K/mm3 RBC (3.98-5.22) M/mm3 Hgb (11.2-15.7) gm/dl Hct (34.1-44.9) % MCV (79.4-94.8) fl MCH (25.6-32.2) pg MCHC (32.2-35.5) g/dl RDW Std Deviation (36.4-46.3) fL Plt Count (182-369) K/mm3 MPV (9.4-12.3) fl Neut % (Auto) (34.0-71.1) % Lymph % (Auto) (19.3-51.7) % [place] % (Auto) (4.7-12.5) % Eos % (Auto) (0.7-5.8) Baso % (Auto) (0.1-1.2) % Neut # (Auto) (1.56-6.13) K/mm3 Lymph # (Auto) (1.18-3.74) K/mm3 [place] # (Auto) (0.24-0.36) K/mm3 Eos # (Auto) (0.04-0.36) K/mm3 Baso # (Auto) (0.01-0.08) K/mm3 Sodium (136-145) mEq/L Potassium (3.5-5.1) mEq/L Chloride (98-107) mEq/L Carbon Dioxide (21-32) mEq/L Anion Gap (5-15) BUN (7-18) mg/dL Creatinine (0.55-1.02) mg/dL Est Cr Clr Drug Dosing mL/min Estimated GFR (MDRD) (>60) mL/min BUN/Creatinine Ratio (14-18) Glucose (74-106) mg/dL POC Glucose 70 (70-105) mg/dL Calcium (8.5-10.1) mg/dL Magnesium (1.8-2.4) mg/dl Total Bilirubin (0.2-1.0) mg/dL AST (15-37) U/L ALT (14-59) U/L Alkaline Phosphatase (46-116) U/L Total Protein (6.4-8.2) g/dl Albumin (3.4-5.0) g/dl Globulin gm/dL Albumin/Globulin Ratio (1-2) Med Orders - Current: Current Medications Acetaminophen (Tylenol) 650 mg PO Q4H PRN PRN Reason: Pain (Mild 1-3)/fever Chlorthalidone (Chlorthalidone) 25 mg PO DAILY [facility] Last Admin: 03/01/20 08:41 Dose: 25 mg Gabapentin (Neurontin) 600 mg PO TID [facility] Last Admin: 03/01/20 08:40 Dose: 600 mg Heparin Sodium (Porcine) (Heparin Sodium) 5,000 units SUBCUT Q8H [facility] Last Admin: 03/01/20 05:12 Dose: 5,000 units Sodium Chloride (Normal Saline) 1,000 mls @ 999 mls/hr IV ASDIRECTED [facility] Last Admin: 02/29/20 20:02 Dose: 999 mls/hr Dextrose/Sodium Chloride (Dextrose 5%-Normal Saline) 1,000 mls @ 125 mls/hr IV ASDIRECTED [facility] Losartan Potassium (Cozaar) 100 mg PO DAILY [facility] Last Admin: 03/01/20 08:40 Dose: 100 mg Ondansetron HCl (Zofran Odt) 4 mg PO Q4H PRN PRN Reason: nausea, able to take PO Pantoprazole Sodium (Protonix) 40 mg PO DAILY [facility] Last Admin: 03/01/20 08:36 Dose: 40 mg Paroxetine HCl (Paxil) 40 mg PO DAILY [facility] Last Admin: 03/01/20 08:41 Dose: 40 mg Potassium Chloride (Klor-Con M20) 20 meq PO DAILY [facility] Discontinued Medications Dextrose/Water (Dextrose 50% In Water) 50 ml IVPUSH ONETIME ONE Stop: 02/29/20 19:57 Last Admin: 02/29/20 20:00 Dose: 50 ml Dextrose/Water (Dextrose 50% In Water) 25 ml IVPUSH ONETIME ONE Stop: 02/29/20 21:07 Last Admin: 02/29/20 21:10 Dose: 25 ml Dextrose/Sodium Chloride (Dextrose 5%-Normal Saline) 1,000 mls @ 150 mls/hr IV ASDIRECTED [facility] Last Admin: 02/29/20 21:13 Dose: 150 mls/hr Dextrose/Sodium Chloride (Dextrose 5%-1/2 Ns) 1,000 mls @ 125 mls/hr IV ASDIRECTED [facility] Last Admin: 03/01/20 04:44 Dose: 125 mls/hr Magnesium Sulfate/Dextrose 1 (gm/ Premix) 100 mls @ 100 mls/hr IV ONETIME ONE Stop: 02/29/20 23:18 Last Admin: 03/01/20 01:08 Dose: 25 mls/hr Potassium Chloride 10 meq/ (Premix) 100 mls @ 100 mls/hr IV Q1H [facility] Stop: 03/01/20 07:59 Last Admin: 03/01/20 07:11 Dose: 100 mls/hr Ketorolac Tromethamine (Toradol) 30 mg IVPUSH ONETIME ONE Stop: 02/29/20 20:06 Last Admin: 02/29/20 20:15 Dose: 30 mg Magnesium Hydroxide (Milk Of Magnesia) 30 ml PO ONETIME ONE Stop: 03/01/20 05:46 Last Admin: 03/01/20 05:12 Dose: 30 ml Potassium Chloride (Klor-Con 10) 20 meq PO DAILY [facility] Last Admin: 03/01/20 08:41 Dose: 20 meq Sepsis Event Note - Evaluation Sepsis Screening Result: No Definite Risk - Focused Exam Vital Signs: Vital Signs Temp Temp Pulse Pulse Resp BP BP 03/01/20 08:40 131/84 03/01/20 08:37 98.2 F 63 16 131/84 03/01/20 03:26 97.5 F 65 16 113/63 02/29/20 23:48 97.7 F 64 18 113/56 L 02/29/20 22:30 97.6 F 65 14 95/63 02/29/20 21:48 97.6 F 67 16 100/66 Pulse Ox 03/01/20 08:40 03/01/20 08:37 98 03/01/20 03:26 99 02/29/20 23:48 97 02/29/20 22:30 95 02/29/20 21:48 95 Date Exam was Performed: 03/01/20 Time Exam was Performed: 11:38 - Problem List & Annotations (1) Acute renal insufficiency SNOMED Code(s): 484235687 Code(s): N28.9 - DISORDER OF KIDNEY AND URETER, UNSPECIFIED Status: Acute Current Visit: Yes (2) Altered mental status SNOMED Code(s): 880940205 Code(s): R41.82 - ALTERED MENTAL STATUS, UNSPECIFIED Status: Resolved Priority: High Current Visit: Yes Qualifiers: Altered mental status type: disorientation Qualified Code(s): R41.0 - Disorientation, unspecified (3) Hypoglycemia SNOMED Code(s): 059314099 Code(s): E16.2 - HYPOGLYCEMIA, UNSPECIFIED Status: Resolved Priority: High Current Visit: Yes (4) Hypokalemia SNOMED Code(s): 15789778 Code(s): E87.6 - HYPOKALEMIA Status: Resolved Priority: Medium Current Visit: Yes (5) Hypomagnesemia SNOMED Code(s): 536610645 Code(s): E83.42 - HYPOMAGNESEMIA Status: Resolved Priority: Medium Current Visit: Yes (6) Hyponatremia SNOMED Code(s): 43624853 Code(s): E87.1 - HYPO-OSMOLALITY AND HYPONATREMIA Status: Chronic Priority: Medium Current Visit: Yes (7) Hypotension SNOMED Code(s): 94052996 Code(s): I95.9 - HYPOTENSION, UNSPECIFIED Status: Chronic Priority: High Current Visit: Yes Qualifiers: Hypotension type: other hypotension type Qualified Code(s): I95.89 - Other hypotension (8) Chronic pain syndrome SNOMED Code(s): 329388251 Code(s): G89.4 - CHRONIC PAIN SYNDROME Status: Chronic Priority: Medium Current Visit: No (9) Sciatica SNOMED Code(s): 47504082 Code(s): M54.30 - SCIATICA, UNSPECIFIED SIDE Status: Chronic Priority: Medium Current Visit: No Qualifiers: Laterality: right Qualified Code(s): M54.31 - Sciatica, right side (10) History of seizure SNOMED Code(s): 586746475 Code(s): Z87.898 - PERSONAL HISTORY OF OTHER SPECIFIED CONDITIONS Status: Chronic Priority: Medium Current Visit: No (11) Depression SNOMED Code(s): 97629289 Code(s): F32.9 - MAJOR DEPRESSIVE DISORDER, SINGLE EPISODE, UNSPECIFIED Status: Acute Priority: High Current Visit: Yes Qualifiers: Depression Type: other depression Qualified Code(s): F32.89 - Other specified depressive episodes (12) Anemia SNOMED Code(s): 387757227 Code(s): D64.9 - ANEMIA, UNSPECIFIED Status: Acute Priority: High Current Visit: Yes Qualifiers: Anemia type: unspecified type Qualified Code(s): D64.9 - Anemia, unspecified (13) Anxiety SNOMED Code(s): 25571034 Code(s): F41.9 - ANXIETY DISORDER, UNSPECIFIED Status: Acute Priority: Medium Current Visit: Yes - Problem List Review Problem List Initiated/Reviewed/Updated: Yes - My Orders Last 24 Hours: My Active Orders 03/01/20 09:29 PREALBUMIN [REF] Routine 03/01/20 09:30 OCCULT BLOOD DIAGNOSTIC [OP] Routine Dextrose 5%-0.9% NaCl [Dextrose 5%-Normal Saline] 1,000 ml IV ASDIRECTED - Plan Plan:: The patient will be admitted to observation. This is primarily due to her lethargy. Patient also has exhibited multiple electrolyte abnormalities and these all be replaced along with IV fluids. Patient has had episodes of severe hypoglycemia and she will be maintained on D5 and quarter normal saline to help improve her fluid status as well as improve her hyponatremia. The patient's sedating medications have been held. Patient has also been noted to be make and repeat laboratory studies have been ordered for the morning after her hemoglobin as well as electrolyte abnormalities. The patient's magnesium will also be replaced in order to help her hypokalemia. The patient is not suicidal at this time but likely she will need to have outpatient therapy and counseling for her depression, anxiety and recent loss of her . The patient also has mild renal insufficiency and she will be placed on DVT prophylaxis with the use of Lovenox. Patient has been encouraged to ambulate. She also be kept on the heart healthy diet while here. I suspect that once the patient's electrolytes had improved and the patient's less lethargic that she will be likely appropriate for discharge in the morning.
[2020-03-01 10:41] LABS: HEMOGLOBIN A1C 4.6 % (4.50-6.20)
[2020-03-01] MEDS: Dextrose 5%-0.9% NaCl 1,000 ML IV SCH (13:00)
[2020-03-01] MEDS: Acetaminophen 325 MG Tab PO PRN ×2 (13:02→21:01)
[2020-03-01] MEDS: ClonazePAM 1 MG Tab PO SCH ×2 (15:03→20:56)
--- NOTE | 2020-03-01 17:39 | CONS ---
CONSULTING PHYSICIAN: Joss Sapp MD DATE OF CONSULTATION: 03/01/2020 Site where the services are provided is [facility] in [place], [place]. Site where the services are provided from our offices in [facility]. Length of service for this 60-minute inpatient telemedicine event is 60 minutes. IDENTIFICATION: The patient is a 59-year-old female who is admitted to the inpatient Med/Surg Unit [facility] at [facility] in [place], [place]. She is seen for psychiatric consultation today per the request of staff attending, Dr. Hughes, and her treatment team. CHIEF COMPLAINT: "Low blood sugar." HISTORY OF PRESENT ILLNESS: The patient is a 59-year-old female who is admitted to the inpatient Med/Surg Unit at [facility] in [place], [place], on 02/29/2020 secondary to issues with hypoglycemia and altered mental status. The patient is being assessed for depression now. She is stating "I am . My a month ago secondary to medical complications." She is also reporting that she had to put her 2 dogs down last week secondary to health issues on the part of her dogs too. The patient states it has been very hard for her. She states she is really depressed and sad about the turn of events, but she does note "I was struggling with depression even before." This all happened. Right now, the patient states that she is depressed and she also states "I have the nerves and anxiety" too. She states she sleeps well "if I take my meds," referring to trazodone, which she has been taking prior to admission. She does have lack of appetite. She is taking also Paxil and Klonopin as well as Depakote and Neurontin. She takes the Depakote and Neurontin for seizure prophylaxis. She has been taking the Paxil since 2017, but she does not feel that this medication is doing much at this point in time, although in the past, "it did help some." The patient is denying that she is suicidal or homicidal. She denies any psychotic, delusional, or paranoid symptoms. She states that she received pain medications in the past, but she stopped this a few months ago on her own and she states she only uses alcohol occasionally and denies any problems with any other illicit substances. MEDICATIONS: At time of admission: 1. Regular Depakote 500 mg b.i.d. 2. Klonopin 1 mg t.i.d. 3. Neurontin 600 mg t.i.d. 4. Paxil 40 mg daily. 5. Trazodone 100 mg at bedtime. ALLERGIES: 1. Cephalexin. 2. Morphine. 3. Effexor XR. 4. Lisinopril. PAST MEDICAL HISTORY: 1. The patient has a seizure disorder. She states her last seizure was about 8 months ago. 2. Status post gastric bypass in 2007. REVIEW OF SYSTEMS: Aside from neuro, GI, and endocrine, all other major organ systems are negative at this point in time for acute difficulties or complications. FAMILY PSYCHIATRIC AND CD HISTORY: The patient reports her father had a history of bipolar affective disease and then her daughter has a history of bipolar affective disease, anxiety, and panic. PAST PSYCHIATRIC AND CD HISTORY: The patient is reporting one psychiatric hospitalization back in 10/2017. Denies any chemical dependency treatment. She reports one suicide attempt by OD back in 10/2017, but denies any self-injurious behaviors or eating disorder history. PAST PSYCHIATRIC MEDICATION HISTORY: Includes Zoloft which the patient recollected worked for her, Effexor, and Wellbutrin, as well as Chantix which cause seizures. PAST PSYCHIATRIC DIAGNOSIS: Includes anxiety. PRIMARY OUTPATIENT CARE PSYCHIATRIST: Dr. Sinclair. PRIMARY OUTPATIENT CARE PROVIDER: Clifford Werner MD SOCIAL HISTORY: The patient is born in [place], [place]. Raised in [place], [place], and [place]. She is the 7th of 7 siblings and 5 sisters and 1 brother. The patient's parents were . She was raised by her mom and remarried when the patient was 11 years of age. Father was in the . Mother worked as a felt hat flanging operator. Stepfather was working in construction. The patient's highest level of education is 2 years of college. 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 She had been x1 for 38 years until her last month after medical complication when he went in for a pain shot and appears he went into cardiac and respiratory failure. She has 3 children from her marriage. Two of the children live in [place]. Another lives in [place], and she is living in [place] with her daughter and grandkids when she is not hospitalized. She denies any prior service. Reports no legal difficulties, and raised Zoroastrian in terms of her jana formation. She enjoys gardening when she is feeling better. MENTAL STATUS EXAM: The patient is a 59-year-old tearful white female in no apparent distress. Speech is of regular rate and rhythm. The patient is cognitively oriented. Psychomotor activity is within normal limits. There are no abnormal motor movements or tics observed. Gait and station are not observed as the patient is lying in bed during the consult. Mood is depressed. Affect is consistent with stated mood, tearful, and restricted, but cooperative overall for the purposes of the inpatient consult. There is no behavioral or stated evidence of acute suicidal or homicidal ideation or acute psychotic, delusional, or paranoid symptoms. Thought processes are significant for racing thoughts, ruminations, and some thought blocking. There are no manic symptoms or loose associations evident. Judgment and insight appear unimpaired at this point in time. Motivation for help appears good. VITALS: 131/84, 62, 16, 98.2 degrees. IMPRESSION: Bingham I: 1. Major depressive disorder, recurrent, F33.2. 2. Anxiety disorder, not otherwise specified, F41.9. 3. 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 Bingham II: None. Bingham III: 1. History of seizure disorder with last seizure being 8 months ago. 2. Status post gastric bypass. 3. History of hypoglycemia of unknown etiology, currently being worked up by inpatient medical treatment team. Bingham IV: Severe. Bingham V: 50 to 55. PLAN: 1. Discontinue Paxil. This medication does not appear to be effective per patient report. 2. Begin trial of Zoloft 100 mg q.a.m. for symptoms of depression. 3. Begin trial of Abilify 2 mg q.a.m. for clarity of thought, elimination of racing thoughts, ruminations, and thought blocking as well as for elimination of any paranoia or psychosis. 4. Continue Klonopin 1 mg t.i.d. for anxiety reduction. 5. Continue trazodone 100 mg at bedtime for sleep initiation, maintenance, and symptoms of depression. 6. Continue regular Depakote 500 mg b.i.d. for seizure prophylaxis and mood stability. 7. Continue Neurontin 600 mg t.i.d. also for seizure prophylaxis and anxiety reduction. 8. Recommend that treatment team confirmed that these are the medications that have been prescribed by the patient from an outpatient standpoint. 9. Other medications as dosed and prescribed by the patient's primary inpatient medical treatment team. 10.Pastoral guidance. 11.The patient apprised of benefits and side effects of the newly initiated and adjusted and continued psychiatric medication regimen. She acknowledges her understanding of these facts. Has no further questions by the end of the interview session. 12.We will continue to have followup with the patient on an as-needed basis while she remains on the inpatient Med/Surg Unit at [facility] in [place], [place]. 13.Recommend that the patient follows up with Outpatient Psychiatry to assess her overall function and efficacy of her newly initiated and adjusted continued psychiatric medication regimen within about 4 weeks after the discharge back to the community. 14.We will follow up with the patient sooner if any complications in the interim. 15.Crisis plan is in place. BRANDON /[id number]
[2020-03-01] MEDS: Divalproex Sodium Delayed-Release 500 MG Tab.CR PO SCH (20:57)
[2020-03-01] MEDS ORDERED: cloNIDine 0.1 MG Tab PO PRN (21:00)
[2020-03-01] MEDS ORDERED: traZODone 50 MG Tab PO SCH (21:00)
[2020-03-02] MEDS: Dextrose 5%-0.9% NaCl 1,000 ML IV SCH ×2 (00:19→08:52)
[2020-03-02] MEDS: Heparin Sodium 5,000 Units/ML Vial SUBCUT SCH ×2 (06:13→14:11)
[2020-03-02] MEDS: Acetaminophen 325 MG Tab PO PRN ×2 (06:24→10:43)
[2020-03-02] MEDS: Gabapentin 600 MG Tab PO SCH ×2 (08:49→14:11)
[2020-03-02] MEDS: ClonazePAM 1 MG Tab PO SCH ×2 (08:49→14:11)
[2020-03-02] MEDS: Losartan 100 MG Tab PO SCH (08:50)
[2020-03-02] MEDS: Divalproex Sodium Delayed-Release 500 MG Tab.CR PO SCH (08:51)
[2020-03-02] MEDS: Chlorthalidone 25 MG Tab PO SCH (08:51)
[2020-03-02] MEDS: Pantoprazole 40 MG Tab.CR PO SCH (08:52)
[2020-03-02] MEDS ORDERED: Potassium Chloride 20 MEQ Tab.ER PO SCH (09:00)
[2020-03-02] MEDS ORDERED: Sertraline 50 MG Tab PO SCH (09:00)
--- NOTE | 2020-03-02 12:59 | PCM.PN ---
- General Info Date of Service: 03/01/20 Subjective Update: 02/25 Slept so so No complaints Tolerating diet - Patient Data Weight - Most Recent: 80.694 kg - Exam General: Alert, Oriented, Cooperative, No Acute Distress HEENT: Pupils Equal, Pupils Reactive, EOMI, Mucous Membr. Moist/[place] Neck: Supple, Trachea Midline, No JVD, No Thyromegaly, +2 Carotid Pulse wo Bruit. No: Lymphadenopathy Lungs: Clear to Auscultation, Normal Respiratory Effort. No: Crackles, Rales, Rhonchi, Rub, Stridor, Wheezing Cardiovascular: Regular Rate, Regular Rhythm. No: Murmurs, Gallops, Rubs GI/Abdominal Exam: Normal Bowel Sounds, Soft, Non-Tender. No: Distended, Guarding, Rigid, Rebound Extremities: Normal Inspection, Normal Range of Motion, Non-Tender, No Pedal Edema Skin: Warm, Dry Neurological: No New Focal Deficit Psy/Mental Status: Alert, Depressed Sepsis Event Note - Evaluation Sepsis Screening Result: No Definite Risk - Focused Exam Vital Signs: Vital Signs Temp Pulse Resp BP Pulse Ox 03/02/20 08:50 125/95 H 03/02/20 07:42 97.9 F 67 16 99/74 95 03/02/20 06:21 98.1 F 68 18 119/93 H 99 Date Exam was Performed: 03/02/20 Time Exam was Performed: 16:32 - Problem List & Annotations (1) Hypoglycemia SNOMED Code(s): 141149398 Code(s): E16.2 - HYPOGLYCEMIA, UNSPECIFIED Status: Resolved Priority: High Current Visit: Yes (2) Hyponatremia SNOMED Code(s): 42982874 Code(s): E87.1 - HYPO-OSMOLALITY AND HYPONATREMIA Status: Chronic Priority: Medium Current Visit: Yes (3) Hypokalemia SNOMED Code(s): 82553652 Code(s): E87.6 - HYPOKALEMIA Status: Resolved Priority: Medium Current Visit: Yes (4) History of Shiraz-en-Y gastric bypass SNOMED Code(s): 964180860 Code(s): Z98.84 - BARIATRIC SURGERY STATUS Status: Acute Current Visit: Yes (5) Seizure disorder SNOMED Code(s): 607903752 Code(s): G40.909 - EPILEPSY, UNSP, NOT INTRACTABLE, WITHOUT STATUS EPILEPTICUS Status: Acute Current Visit: Yes (6) Hypoalbuminemia SNOMED Code(s): 772165374 Code(s): E88.09 - OTH DISORDERS OF PLASMA-PROTEIN METABOLISM, NEC Status: Acute Current Visit: Yes (7) Acute kidney injury SNOMED Code(s): 26018004, 48726678 Code(s): N17.9 - ACUTE KIDNEY FAILURE, UNSPECIFIED Status: Acute Current Visit: Yes (8) Normocytic hypochromic anemia SNOMED Code(s): 41352773 Code(s): D50.9 - IRON DEFICIENCY ANEMIA, UNSPECIFIED Status: Acute Current Visit: Yes (9) Depression SNOMED Code(s): 25181542 Code(s): F32.9 - MAJOR DEPRESSIVE DISORDER, SINGLE EPISODE, UNSPECIFIED Status: Acute Priority: High Current Visit: Yes Qualifiers: Depression Type: other depression Qualified Code(s): F32.89 - Other specified depressive episodes (10) Bereavement SNOMED Code(s): 05871303 Code(s): Z63.4 - DISAPPEARANCE AND OF FAMILY MEMBER Status: Acute Current Visit: Yes - Problem List Review Problem List Initiated/Reviewed/Updated: Yes - Plan Plan:: ASSESSMENT Admission - Brought in via EMS for glucose at home in mid 40s - Glucose on admission 59 - Started on D5 4NS - Gastric bypass 2007 - Not compliant with vitamins - Patient's a month ago, has to put down 2 of her dogs--> depressed Day 1 - No more hypoglycemia episodes - Hb has been trending down steadily since mid December - BRAULIO resolved - Hypokalemia resolved - Hyponatremia 2/2 IVF - Psychiatry consult - Last seizure was 8 months ago PLAN BY PROBLEM Hypoglycemia - Change IVF form D51/4NS to D5 NS - Continue to monitor glucose - HbA1c result pending - If new episode of hypoglycemia will do c peptide, insulin level and sulfonylurea screen - Dietary evaluation Hyponatremia - Change IVF to D5NS History of Shiraz-en-Y gastric bypass Normocytic hypochromic anemia Hypoalbuminemia - Dietary evaluation and malnutrition screen - Folic acid and B12 level - Iron panel - Peripheral blood smear - FOBT Depression Anxiety Bereavement - Psychiatry consult - Continue home medications for now Seizure disorder - Continue home medications PROPHYLAXIS DVT- Not indicated GI- Not indicated CODE STATUS: FULL CODE DISPOSITION: Patient admitted for hypoglycemia and electrolyte derangements which have improved. She needs evaluation by psychiatry, dietary and anemia work up. Likely discharge in AM if no further hypoglycemia episodes.
--- NOTE | 2020-03-02 16:19 | PCM.DCSUM1 ---
Discharge Summary - Hospital Course HPI Initial Comments: The patient is a 59-year-old lady who has presented to the emergency department with concern for severe hypoglycemia. The patient had blood sugar checked at home and was found to be in the mid 40s and she ate some glucose tablets to help with her sugars. Her blood sugars documented in the emergency department were low at 59 mg/dL. She was given multiple doses of D50 as well as starting on D5 quarter normal saline. Patient also admits to being under severe stress lately. Patient's last month and she had to put 2 of her dogs to sleep. Patient is currently living with her daughter and her daughter's 2 children. The patient also took her afternoon dose of clonazepam and she wanted to go to bed earlier in the afternoon so she took her evening dose of clonazepam. In the emergency department the patient was noted to be lethargic but alert and oriented and falling asleep during the middle of questions. Patient has had episodes of hypoglycemia that have not been resolved since her gastric bypass in 2007. The patient has denied any suicidal ideation. The patient has denied any pain. She has had no nausea or vomiting associated with the hypoglycemia. - Discharge Data Discharge Date: 03/02/20 Discharge Disposition: Home, Self-Care 01 Condition: Good - Referral to Home Health Primary Care Physician: Clifford Werner MD - Discharge Diagnosis/Problem(s) (1) Hypoglycemia SNOMED Code(s): 983093827 ICD Code: E16.2 - HYPOGLYCEMIA, UNSPECIFIED Status: Resolved Current Visit: No (2) Acute kidney injury SNOMED Code(s): 77281949, 99739758 ICD Code: N17.9 - ACUTE KIDNEY FAILURE, UNSPECIFIED Status: Resolved Current Visit: Yes (3) Anemia SNOMED Code(s): 123479975 ICD Code: D64.9 - ANEMIA, UNSPECIFIED Status: Acute Priority: High Current Visit: Yes Qualifiers: Anemia type: unspecified type Qualified Code(s): D64.9 - Anemia, unspecified (4) Anxiety SNOMED Code(s): 99934265 ICD Code: F41.9 - ANXIETY DISORDER, UNSPECIFIED Status: Acute Priority: Medium Current Visit: Yes (5) Bereavement SNOMED Code(s): 63204480 ICD Code: Z63.4 - DISAPPEARANCE AND OF FAMILY MEMBER Status: Acute Current Visit: Yes (6) Depression SNOMED Code(s): 23497636 ICD Code: F32.9 - MAJOR DEPRESSIVE DISORDER, SINGLE EPISODE, UNSPECIFIED Status: Acute Priority: High Current Visit: Yes Qualifiers: Depression Type: other depression Qualified Code(s): F32.89 - Other specified depressive episodes (7) History of Shiraz-en-Y gastric bypass SNOMED Code(s): 985953469 ICD Code: Z98.84 - BARIATRIC SURGERY STATUS Status: Acute Current Visit: Yes (8) Hypoalbuminemia SNOMED Code(s): 877283393 ICD Code: E88.09 - [facility] DISORDERS OF PLASMA-PROTEIN METABOLISM, NEC Status: Acute Current Visit: Yes (9) Normocytic hypochromic anemia SNOMED Code(s): 53702133 ICD Code: D50.9 - IRON DEFICIENCY ANEMIA, UNSPECIFIED Status: Acute Current Visit: Yes (10) Seizure disorder SNOMED Code(s): 614371674 ICD Code: G40.909 - EPILEPSY, UNSP, NOT INTRACTABLE, WITHOUT STATUS EPILEPTICUS Status: Acute Current Visit: Yes (11) Hyponatremia SNOMED Code(s): 57818314 ICD Code: E87.1 - HYPO-OSMOLALITY AND HYPONATREMIA Status: Chronic Priority: Medium Current Visit: Yes (12) Hypoglycemia SNOMED Code(s): 105195986 ICD Code: E16.2 - HYPOGLYCEMIA, UNSPECIFIED Status: Resolved Priority: High Current Visit: Yes (13) Hypokalemia SNOMED Code(s): 79116998 ICD Code: E87.6 - HYPOKALEMIA Status: Resolved Priority: Medium Current Visit: Yes (14) Postprandial hypoglycemia SNOMED Code(s): 411589838 ICD Code: E16.2 - HYPOGLYCEMIA, UNSPECIFIED Status: Acute Current Visit: No (15) Iron deficiency anemia SNOMED Code(s): 03269535 ICD Code: D50.9 - IRON DEFICIENCY ANEMIA, UNSPECIFIED Status: Acute Current Visit: Yes - Patient Summary/Data Consults: Consultations 03/01/20 02:19 Consult to Diabetic Nurse Specialist [CONS] Routine 03/01/20 02:20 Consult to Assurance Engineer [CONS] Routine Consult to Physician [CONS] Routine 03/01/20 10:14 Consult to Case Management/Tea Tree Farmer [CONS] Routine 03/01/20 14:08 Consult to Spiritual Care [CONS] Routine Hospital Course: Admission - Brought in via EMS for glucose at home in mid 40s - Glucose on admission 59 - Started on D5 1/4NS - Gastric bypass 2007 - Not compliant with vitamins - Patient's a month ago, has to put down 2 of her dogs--> depressed Day 1 - No more hypoglycemia episodes - Hb has been trending down steadily since mid December - BRAULIO resolved - Hypokalemia resolved - Hyponatremia 2/2 IVF - Psychiatry consult - Last seizure was 8 months ago Day 3 - No further hypoglycemia episodes - Psychiatry evaluated and diagnosed with anxiety and major depressive disorder , discontinued Paxil and started Zoloft and Abilify - Scheduled psychiatry follow up as an outpatient - Dietary recommended supplementation with protein - Given IV iron supplementation, 250mg - Discharge Plan *PRESCRIPTION DRUG MONITORING PROGRAM REVIEWED*: Not Applicable *COPY OF PRESCRIPTION DRUG MONITORING REPORT IN PATIENT ROSA: Not Applicable Prescriptions/Med Rec: ARIPiprazole [Abilify] 2 mg PO DAILY #30 tablet Sertraline [Zoloft] 100 mg PO DAILY #30 tablet traZODone HCl [Trazodone HCl] 100 mg PO BEDTIME #30 tablet Home Medications: Home Meds Gabapentin [Neurontin] 600 mg PO TID 06/22/19 [History] cloNIDine [Catapres] 0.1 mg PO BEDTIME PRN 06/22/19 [History] traZODone HCl [Trazodone HCl] 100 mg PO BEDTIME 06/24/19 [History] Chlorthalidone 25 mg PO DAILY 01/27/20 [History] Divalproex Sodium [Depakote] 500 mg PO BID 01/27/20 [History] clonazePAM [Clonazepam] 1 mg PO TID 02/29/20 [History] ARIPiprazole [Abilify] 2 mg PO DAILY #30 tablet 03/02/20 [Rx] Losartan [Cozaar] 100 mg PO BEDTIME #0 03/02/20 [Rx] Sertraline [Zoloft] 100 mg PO DAILY #30 tablet 03/02/20 [Rx] traZODone HCl [Trazodone HCl] 100 mg PO BEDTIME #30 tablet 03/02/20 [Rx] Patient Handouts: Hypoglycemia, Steps to Quit Smoking Referrals: Joss Sapp MD [Physician] - 03/20/20 1:00 pm (This appt. is in [place] at the hospital on the clinic side (East side) Please arrive at 12:30. If you need to change date and time Please call [phone]. Thanks) - Discharge Summary/Plan Comment DC Time >30 min.: Yes - General Info Date of Service: 03/02/20 Subjective Update: Slept great Tolerating diet BM today Ambulating - Patient Data Vitals - Most Recent: Last Vital Signs Temp 97.9 F 03/02/20 07:42 Pulse 67 03/02/20 07:42 Resp 16 03/02/20 07:42 BP 125/95 H 03/02/20 08:50 Pulse Ox 95 03/02/20 07:42 Weight - Most Recent: 80.694 kg - Exam General: Reports: Alert, Oriented, Cooperative, No Acute Distress HEENT: Reports: Pupils Equal, Pupils Reactive, EOMI, Mucous Membr. Moist/[place]ck: Reports: Supple, Trachea Midline, No JVD, No Thyromegaly, +2 Carotid Pulse wo Bruit. Denies: Lymphadenopathy Lungs: Reports: Clear to Auscultation, Normal Respiratory Effort. Denies: Crackles, Rales, Rhonchi, Rub, Wheezing Cardiovascular: Reports: Regular Rate, Regular Rhythm. Denies: Murmurs, Gallops GI/Abdominal Exam: Normal Bowel Sounds, Soft, Non-Tender, No Organomegaly. No: Distended, Guarding, Rigid, Rebound Extremities: Normal Inspection, Normal Range of Motion, Non-Tender, No Pedal Edema, Normal Capillary Refill Neurological: Reports: No New Focal Deficit Psy/Mental Status: Reports: Alert
[2020-03-02 16:36] VITALS: BP 107/72; PULSE 69
[2020-03-02] MEDS ORDERED: FLU Vacc QS2019-20(6MOS+)/PF 60 MCG/0.5 ML SYRINGE IM ONE (17:30)
== END 2020-03-02 17:45 | disposition home or self-care (01) ==
LOC: JD.ED 19:49 → JD.MS 21:41
PROVIDERS: ADMIT Internal Medicine; ATTEND Internal Medicine
DX: E11.649 Type 2 diabetes mellitus with hypoglycemia without coma (principal); N17.9 Acute kidney failure, unspecified; I10 Essential (primary) hypertension; F41.9 Anxiety disorder, unspecified; K21.9 Gastro-esophageal reflux disease without esophagitis; E83.42 Hypomagnesemia; E87.1 Hypo-osmolality and hyponatremia; I95.89 Other hypotension; T50.911A Poisoning by multiple unspecified drugs, medicaments and biological substances, accidental (unintentional), initial encounter; E87.6 Hypokalemia; G40.909 Epilepsy, unspecified, not intractable, without status epilepticus; E88.09 Other disorders of plasma-protein metabolism, not elsewhere classified; D50.9 Iron deficiency anemia, unspecified; F33.2 Major depressive disorder, recurrent severe without psychotic features; Z63.4 Disappearance and death of family member; Z88.0 Allergy status to penicillin; Z88.8 Allergy status to other drugs, medicaments and biological substances; Z98.84 Bariatric surgery status; Z79.899 Other long term (current) drug therapy; Z88.5 Allergy status to narcotic agent
CPT/HCPCS: 36415; 80048; 80053; 82272; 82607; 82747; 82962; 83036; 83540; 83735; 84100; 84134; 84466; 85007; 85014; 85025; 85027; 85045; 96360; 96361; 99285; A9270; J1644; J1885; J2916; J3475; J3480; J7030; J7042; J7050; 90686

== ENCOUNTER 2020-03-17 18:26 | Emergency (ER) | payer MEDICAID ==
[2020-03-17 18:37] VITALS: BP 120/75; PULSE 78
[2020-03-17] MEDS ORDERED: Metoclopramide 10 MG/2 ML SDV IVPUSH ONE (18:49)
[2020-03-17] MEDS ORDERED: Sodium Chloride 0.9% 10 ML Syringe FLUSH PRN (18:49)
[2020-03-17] MEDS ORDERED: Sodium Chloride 0.9% 1,000 ML IV ONE (18:49)
[2020-03-17] MEDS ORDERED: Ketorolac 30 MG/ML SDV IVPUSH ONE (18:49)
[2020-03-17] MEDS ORDERED: diphenhydrAMINE 50 MG/ML SDV IVPUSH ONE (18:49)
--- NOTE | 2020-03-17 19:00 | EDM.PDOC ---
ED HPI GENERAL MEDICAL PROBLEM - General Chief Complaint: Headache Stated Complaint: MIGRAINE X 3DAYS Time Seen by Provider: 03/17/20 18:38 Source of Information: Reports: Patient, RN Notes Reviewed History Limitations: Reports: No Limitations - History of Present Illness INITIAL COMMENTS - FREE TEXT/NARRATIVE: Patient is a 59 year old female who presents to the ED for her migraine headache. The patient states that this headache has been present for 3 days now , and is typical for her normal headaches. She has tried a few doses of her Imitrex and has not gotten much relief, and has subsequently run out of the Imitrex yesterday evening. She states that she gets light and sound sensitivities with her headaches. She is also complaining of some mild blurry vision, but this is not a new finding when she has her headaches. She does complain of some nausea and vomiting x 1 yesterday. Her regular care provider is Dr. Werner. - Related Data Allergies Allergy/AdvReac Type Severity Reaction Status Date / Time cephalexin Allergy Hives Verified 02/29/20 22:13 morphine Allergy Itching Verified 02/29/20 22:13 venlafaxine [From Effexor] Allergy Cannot Verified 02/29/20 22:13 Remember lisinopril AdvReac Muscle Verified 02/29/20 22:13 Aches Home Meds: Home Meds Gabapentin [Neurontin] 600 mg PO TID 06/22/19 [History] cloNIDine [Catapres] 0.1 mg PO BEDTIME PRN 06/22/19 [History] traZODone HCl [Trazodone HCl] 100 mg PO BEDTIME 06/24/19 [History] Chlorthalidone 25 mg PO DAILY 01/27/20 [History] Divalproex Sodium [Depakote] 500 mg PO BID 01/27/20 [History] clonazePAM [Clonazepam] 1 mg PO TID 02/29/20 [History] ARIPiprazole [Abilify] 2 mg PO DAILY #30 tablet 03/02/20 [Rx] Losartan [Cozaar] 100 mg PO BEDTIME #0 03/02/20 [Rx] Sertraline [Zoloft] 100 mg PO DAILY #30 tablet 03/02/20 [Rx] traZODone HCl [Trazodone HCl] 100 mg PO BEDTIME #30 tablet 03/02/20 [Rx] SUMAtriptan [Imitrex] 100 mg PO ASDIRECTED PRN #10 tablet MDD 200 03/17/20 [Rx] Past Medical History HEENT History: Reports: Allergic Rhinitis, Impaired Vision Other HEENT History: wears glasses, dentures Cardiovascular History: Reports: Blood Clots/VTE/DVT, Hypertension Respiratory History: Reports: PE Gastrointestinal History: Reports: GERD, PUD, Other (See Below) Other Gastrointestinal History: Peritonitis, gastric ulcer Genitourinary History: Reports: UTI, Recurrent RIPPER OPERATOR History: Reports: Musculoskeletal History: Reports: Osteoarthritis Neurological History: Reports: Migraines, Seizure Other Neuro History: Patient reports last seizure within the last year, about 8 months ago. 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 - Past Surgical History HEENT Surgical History: Reports: Oral Surgery GI Surgical History: Reports: Bariatric Procedure, Cholecystectomy, Hernia, Abdominal, Lysis of Adhesions Female Surgical History: Reports: Hysterectomy, Tubal Ligation Musculoskeletal Surgical History: Reports: Shoulder Surgery Other Musculoskeletal Surgeries/Procedures:: Left shoulder Sx X2. Social & Family History - Family History Family Medical History: Noncontributory - Tobacco Use Smoking Status *Q: Current Every Day Smoker Years of Tobacco use: 30 Packs/Tins Daily: 2 - Caffeine Use Caffeine Use: Reports: Coffee Caffeine Use Comment: unknown - Living Situation & Occupation Living situation: Reports: , with Family (Daughter + her 2 kids) Occupation: Disabled ED ROS GENERAL - Review of Systems Review Of Systems: Comprehensive ROS is negative, except as noted in HPI. - Physical Exam Exam: See Below Exam Limited By: No Limitations General Appearance: Alert, WD/WN, No Apparent Distress (patient is wearing dark glasses in a darkened room.) Eye Exam: Bilateral Eye: EOMI, Normal Inspection, PERRL Ears: Normal External Exam Nose: Normal Inspection Throat/Mouth: Normal Inspection, Normal Lips, Normal Teeth, Normal Gums, Normal Oropharynx, Normal Voice, No Airway Compromise Head Exam: Atraumatic, Normocephalic Neck: Normal Inspection Respiratory/Chest: No Respiratory Distress, Lungs Clear, Normal Breath Sounds, No Accessory Muscle Use, Chest Non-Tender Cardiovascular: Normal Peripheral Pulses, Regular Rate, Rhythm, No Murmur GI/Abdominal: Normal Bowel Sounds, Soft, Non-Tender, No Distention, No Mass Neuro Exam (Abbreviated): Alert, Oriented, Normal Cognition, No Motor/Sensory Deficits Extremities: Normal Inspection, Normal Capillary Refill Psychiatric: Normal Affect, Normal Mood Skin Exam: Warm, Dry, Intact, Normal Color, No Rash Course - Vital Signs Last Recorded V/S: Last Vital Signs Temp 98.2 F 03/17/20 18:35 Pulse 78 03/17/20 18:35 Resp 16 03/17/20 18:35 BP 120/75 03/17/20 18:35 Pulse Ox 99 03/17/20 18:35 - Orders/Labs/Meds Orders: Active Orders 24 hr Category Date Time Status POC Glucose [Blood Glucose Check, Bedside] [] ONETIME Care 03/17/20 19:12 Ordered Peripheral IV Care [RC] . DIRECTED Care 03/17/20 18:49 Ordered Sodium Chloride 0.9% [Saline Flush] Med 03/17/20 18:49 Active 10 ml FLUSH ASDIRECTED PRN Peripheral IV Insertion Adult [OM.PC] Routine Oth 03/17/20 18:49 Ordered Medication Orders Sodium Chloride (Saline Flush) 10 ml FLUSH ASDIRECTED PRN PRN Reason: Keep Vein Open Last Admin: 03/17/20 18:55 Dose: 10 ml Labs: Laboratory Tests 03/17/20 Range/Units 19:13 POC Glucose 114 H (70-105) mg/dL Meds: Medications Generic Name Dose Route Start Last Admin Trade Name Freq PRN Reason Stop Dose Admin Sodium Chloride 10 ml 03/17/20 18:49 03/17/20 18:55 Saline Flush FLUSH 10 ml ASDIRECTED PRN Administration Keep Vein Open Discontinued Medications Generic Name Dose Route Start Last Admin Trade Name Freq PRN Reason Stop Dose Admin Diphenhydramine HCl 25 mg 03/17/20 18:49 03/17/20 19:06 Benadryl IVPUSH 03/17/20 18:50 25 mg ONETIME ONE Administration Sodium Chloride 1,000 mls @ 999 mls/hr 03/17/20 18:49 03/17/20 19:04 Normal Saline IV 03/17/20 19:49 999 mls/hr ASDIRECTED ONE Administration Ketorolac Tromethamine 30 mg 03/17/20 18:49 03/17/20 19:06 Toradol IVPUSH 03/17/20 18:50 30 mg ONETIME ONE Administration Metoclopramide HCl 10 mg 03/17/20 18:49 03/17/20 19:06 Reglan IVPUSH 03/17/20 18:50 10 mg ONETIME ONE Administration - Re-Assessments/Exams Free Text/Narrative Re-Assessment/Exam: 03/17/20 19:03 Patient presents to the ED for the evaluation of her headache. Have ordered IV to be placed with 30 mg Toradol, 10 mg Reglan and 25 mg Benadryl for initial management with some IV fluids to be given. Will reassess the patient after the meds have been given time to work. 03/17/20 20:18 Patient was reassessed at bedside, and states that her headache has improved quite a bit and is ready to go home at this time. Will be discharged home with general recommendations. Departure - Departure Time of Disposition: 20:18 Disposition: Home, Self-Care 01 Condition: Good Clinical Impression: Migraine - Discharge Information *PRESCRIPTION DRUG MONITORING PROGRAM REVIEWED*: No *COPY OF PRESCRIPTION DRUG MONITORING REPORT IN PATIENT ROSA: No Prescriptions: SUMAtriptan [Imitrex] 100 mg PO ASDIRECTED PRN #10 tablet MDD 200 PRN Reason: Headache Instructions: Migraine Headache, [id number] Referrals: Clifford Werner MD [Primary Care Provider] - Forms: ED Department Discharge Additional Instructions: You were evaluated in the ED for your headache. You were given a combination of medications and IV fluid for management. This did seem to provide you pretty good relief of your symptoms. Recommend that you go home and rest in a quiet, darkened room. Try also to keep well hydrated. You were given a prescription for Imitrex, please take 100 mg at the onset of headache, urine repeat this in 2 hours if the first dose did not provide headache relief. Do not exceed 200 mg in a 24-hour time span. Please return to the ED if your symptoms should change or worsen. Sepsis Event Note - Evaluation Sepsis Screening Result: No Definite Risk - Focused Exam Vital Signs: Vital Signs Temp Pulse Resp BP Pulse Ox 03/17/20 18:35 98.2 F 78 16 120/75 99 Date Exam was Performed: 03/17/20 Time Exam was Performed: 20:17 - My Orders Last 24 Hours: My Active Orders 03/17/20 18:49 Peripheral IV Care [RC] . DIRECTED Sodium Chloride 0.9% [Saline Flush] 10 ml FLUSH ASDIRECTED PRN Peripheral IV Insertion Adult [OM.PC] Routine 03/17/20 19:12 POC Glucose [Blood Glucose Check, Bedside] [RC] ONETIME - Assessment/Plan Last 24 Hours: My Active Orders 03/17/20 18:49 Peripheral IV Care [RC] . DIRECTED Sodium Chloride 0.9% [Saline Flush] 10 ml FLUSH ASDIRECTED PRN Peripheral IV Insertion Adult [OM.PC] Routine 03/17/20 19:12 POC Glucose [Blood Glucose Check, Bedside] [RC] ONETIME
== END 2020-03-17 20:30 | disposition home or self-care (01) ==
LOC: JD.ED 18:26
DX: G43.909 Migraine, unspecified, not intractable, without status migrainosus (principal); K21.9 Gastro-esophageal reflux disease without esophagitis; I10 Essential (primary) hypertension; M19.90 Unspecified osteoarthritis, unspecified site; F41.9 Anxiety disorder, unspecified; F32.9 Major depressive disorder, single episode, unspecified; E11.9 Type 2 diabetes mellitus without complications; F17.210 Nicotine dependence, cigarettes, uncomplicated; Z90.89 Acquired absence of other organs; Z88.5 Allergy status to narcotic agent; Z88.8 Allergy status to other drugs, medicaments and biological substances; Z79.899 Other long term (current) drug therapy
CPT/HCPCS: 82962; 96361; 96374; 96375; 99283; J1200; J1885; J2765; J7030

== ENCOUNTER 2020-03-26 01:04 | Emergency (ER) | payer MEDICAID ==
[2020-03-26] MEDS ORDERED: Dextrose 10% in Water 1,000 ML ONE (01:35)
[2020-03-26] MEDS ORDERED: Dextrose 10% in Water 1,000 ML IV SCH ×3 (01:45→06:15)
--- NOTE | 2020-03-26 01:57 | EDM.PDOC ---
ED HPI GENERAL MEDICAL PROBLEM - General Chief Complaint: Diabetic Complaint Stated Complaint: LOW BLOOD SUGAR Time Seen by Provider: 03/26/20 01:15 Source of Information: Reports: Patient History Limitations: Reports: No Limitations (The patient is a bit drowsy, but able to provide a complete history) - History of Present Illness INITIAL COMMENTS - FREE TEXT/NARRATIVE: Mrs. 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 She states that she ate dinner around 22:00, then some Cheetos around 23:00. She states that she and her daughter were up talking until around 00:30, when she got up to go to bed. She states that she immediately started feeling weak, shaky, and lightheaded, symptoms consistent with her hypoglycemia. An Accu-Chek was 25. She drank some apple juice and ate a single glucose tablet. A repeat Accu-Chek almost immediately after was up to 32, then about 15 minutes later, was up to 102. About 5 minutes after that, it was down to 80, after which the patient was brought to the ED by her daughter. Upon presentation to the ED, her Accu-Chek was 32. Here in the ED, the patient's initial BP is found to be low at 97/58, although the patient states that she always runs low blood pressure. She is otherwise hemodynamically stable, afebrile, saturating 100% on room air. The patient denies recent fever, chills, sore throat, ear pain, nasal or sinus congestion, cough, dyspnea, chest pain, palpitations, nausea, vomiting, constipation, diarrhea, abdominal pain, urinary symptoms, recent weight gain or weight loss, recent bloody bowel movements or black bowel movements, recent joint aches, headaches, or rashes. The patient also has a history of anxiety and major depression, made worse after the unexpected of her on 01/16/2020. She was admitted to this hospital on 02/29/2020, also for a hypoglycemic event, and during that stay she was evaluated by a Psychiatrist. Her Paxil was switched to Zoloft, and Abilify was added. She states that she has been compliant with these medicines , and that she followed up with her Psychiatrist on 03/20/2020, and that no changes were made in her medications. She states that she has not yet been notified of when her next appointment will be. The patient's PCP is Dr. Clifford Werner. Her Neurologist is Dr. Joss Powers. Her Psychiatrist is Dr. Joss Sapp. Back Pain Score (Numeric/FACES): 8 - Related Data Allergies Allergy/AdvReac Type Severity Reaction Status Date / Time cephalexin Allergy Hives Verified 03/26/20 01:19 morphine Allergy Itching Verified 03/26/20 01:19 venlafaxine [From Effexor] Allergy Cannot Verified 03/26/20 01:19 Remember lisinopril AdvReac Muscle Verified 03/26/20 01:19 Aches Home Meds: Home Meds Gabapentin [Neurontin] 600 mg PO TID 06/22/19 [History] cloNIDine [Catapres] 0.1 mg PO BEDTIME PRN 06/22/19 [History] traZODone HCl [Trazodone HCl] 100 mg PO BEDTIME 06/24/19 [History] Chlorthalidone 25 mg PO DAILY 01/27/20 [History] Divalproex Sodium [Depakote] 500 mg PO BID 01/27/20 [History] clonazePAM [Clonazepam] 1 mg PO TID 02/29/20 [History] ARIPiprazole [Abilify] 2 mg PO DAILY #30 tablet 03/02/20 [Rx] Losartan [Cozaar] 100 mg PO BEDTIME #0 03/02/20 [Rx] Sertraline [Zoloft] 100 mg PO DAILY #30 tablet 03/02/20 [Rx] traZODone HCl [Trazodone HCl] 100 mg PO BEDTIME #30 tablet 03/02/20 [Rx] SUMAtriptan [Imitrex] 100 mg PO ASDIRECTED PRN #10 tablet MDD 200 03/17/20 [Rx] Past Medical History HEENT History: Reports: Allergic Rhinitis, Impaired Vision Other HEENT History: wears glasses, dentures Cardiovascular History: Reports: Blood Clots/VTE/DVT, Hypertension Respiratory History: Reports: PE Gastrointestinal History: Reports: GERD, PUD, Other (See Below) (SBO) Musculoskeletal History: Reports: Osteoarthritis Neurological History: Reports: Migraines, Seizure Psychiatric History: Reports: Addiction (oxycodone), Anxiety, Depression Endocrine/Metabolic History: Reports: Diabetes, Type II (resolved after gastric bypass), Other (See Below) (Postgastric bypass hypoglycemia) Hematologic History: Reports: Anemia, Iron Deficiency, Other (See Below) ( Antithrombin III deficiency) - Past Surgical History HEENT Surgical History: Reports: Oral Surgery (dentures) GI Surgical History: Reports: Bariatric Procedure (gastric bypass around 2007), Cholecystectomy (around 2008), Hernia, Abdominal, Lysis of Adhesions (x 4) Female Surgical History: Reports: Hysterectomy (complete), Tubal Ligation Musculoskeletal Surgical History: Reports: Shoulder Surgery (left, arthroscopic x 1, open x 1) Social & Family History - Family History Family Medical History: Noncontributory - Tobacco Use Smoking Status *Q: Current Every Day Smoker Years of Tobacco use: 43 Packs/Tins Daily: 1 Packs/Tins Daily Comment: Down from 2 ppd - Caffeine Use Caffeine Use: Reports: Coffee Caffeine Use Comment: unknown - Alcohol Use Alcohol Use History: No - Recreational Drug Use Recreational Drug Use: Yes Drug Use in Last 12 Months: Yes Recreational Drug Type: Reports: Marijuana/Hashish (last smoked around 1999), Methamphetamine (last snorted ), Oxycodone (last abused Jan 2020) - Living Situation & Occupation Living situation: Reports: (01/16/2020), with Family (Daughter + her 2 kids) Occupation: Disabled ED ROS GENERAL - Review of Systems Review Of Systems: Comprehensive ROS is negative, except as noted in HPI. ED EXAM GENERAL NO PERIP PULSE - Physical Exam Exam: See Below Exam Limited By: No Limitations General Appearance: No Apparent Distress, Lethargic (mild), Thin Eye Exam: Bilateral Eye: EOMI, Normal Inspection Ears: Normal External Exam, Hearing Grossly Normal Nose: Normal Inspection Throat/Mouth: Normal Inspection, Normal Lips, Normal Voice, No Airway Compromise Head: Atraumatic, Normocephalic Neck: Normal Inspection, Full Range of Motion Respiratory/Chest: No Respiratory Distress, Lungs Clear, Normal Breath Sounds, No Accessory Muscle Use Cardiovascular: Normal Peripheral Pulses, Regular Rate, Rhythm, No Edema, No Gallop, No JVD, No Murmur, No Rub GI/Abdominal: Normal Bowel Sounds, Soft, Non-Tender, No Organomegaly, No Distention, No Abnormal Bruit, No Mass (Female) Exam: Deferred Rectal (Female) Exam: Deferred Back Exam: Normal Inspection, Full Range of Motion, NT Extremities: Normal Inspection, Normal Range of Motion, No Pedal Edema, Normal Capillary Refill Neurological: Alert, Oriented, Normal Cognition, No Motor/Sensory Deficits Psychiatric: Normal Affect Skin Exam: Warm, Dry, Intact, Normal Color, No Rash Lymphatic: No Adenopathy Course - Vital Signs Last Recorded V/S: Last Vital Signs Temp 36.6 C 03/26/20 01:14 Pulse 77 03/26/20 01:14 Resp 14 03/26/20 01:14 BP 97/58 L 03/26/20 01:14 Pulse Ox 100 03/26/20 01:14 Orthostatic Blood Pressure [ 117/76 Standing] Orthostatic Blood Pressure [ 90/49 Supine] - Orders/Labs/Meds Orders: Active Orders 24 hr Category Date Time Status Accu Check [Blood Glucose Check, Bedside] [RC] ONETIME Care 03/26/20 01:15 Active Blood Glucose Check, Bedside [RC] ONETIME Care 03/26/20 02:45 Active Orthostatic Vital Signs [RC] STAT Care 03/26/20 02:17 Active CORONAVIRUS COVID-19 RAPID PCR [MOLEC] Stat Lab 03/26/20 07:12 Received Dextrose 10% in Water 1,000 ml Med 03/26/20 06:15 Active IV ASDIRECTED Medication Orders Dextrose/Water (Dextrose 10% In Water) 1,000 mls @ 85 mls/hr IV ASDIRECTED JODI Labs: Laboratory Tests 03/26/20 03/26/20 03/26/20 Range/Units 01:16 01:25 01:25 WBC 6.61 (3.98-10.04) K/mm3 RBC 4.01 (3.98-5.22) M/mm3 Hgb 11.2 D (11.2-15.7) gm/dl Hct 35.2 (34.1-44.9) % MCV 87.8 (79.4-94.8) fl MCH 27.9 (25.6-32.2) pg MCHC 31.8 L (32.2-35.5) g/dl RDW Std Deviation 60.8 H (36.4-46.3) fL Plt Count 263 (182-369) K/mm3 MPV 10.1 (9.4-12.3) fl Neut % (Auto) 48.3 (34.0-71.1) % Lymph % (Auto) 37.7 (19.3-51.7) % [place] % (Auto) 10.6 (4.7-12.5) % Eos % (Auto) 2.3 (0.7-5.8) Baso % (Auto) 0.6 (0.1-1.2) % Neut # (Auto) 3.20 (1.56-6.13) K/mm3 Lymph # (Auto) 2.49 (1.18-3.74) K/mm3 [place] # (Auto) 0.70 H (0.24-0.36) K/mm3 Eos # (Auto) 0.15 (0.04-0.36) K/mm3 Baso # (Auto) 0.04 (0.01-0.08) K/mm3 Sodium 133 L (136-145) mEq/L Potassium 3.4 L (3.5-5.1) mEq/L Chloride 96 L (98-107) mEq/L Carbon Dioxide 27 (21-32) mEq/L Anion Gap 13.4 (5-15) BUN 14 (7-18) mg/dL Creatinine 0.8 (0.55-1.02) mg/dL Est Cr Clr Drug Dosing 75.45 mL/min Estimated GFR (MDRD) > 60 (>60) mL/min BUN/Creatinine Ratio 17.5 (14-18) Glucose 34 L (74-106) mg/dL POC Glucose 32 L (70-105) mg/dL Calcium 9.1 (8.5-10.1) mg/dL Magnesium 1.8 (1.8-2.4) mg/dl Total Bilirubin 0.3 (0.2-1.0) mg/dL AST 17 (15-37) U/L ALT 18 (14-59) U/L Alkaline Phosphatase 49 (46-116) U/L Total Protein 7.3 (6.4-8.2) g/dl Albumin 3.6 (3.4-5.0) g/dl Globulin 3.7 gm/dL Albumin/Globulin Ratio 1.0 (1-2) Salicylates (2.8-20) mg/dL Urine Opiates Screen (LYDYUF=949) Ur Buprenorphine Scrn (CUTOFF=10) Ur Oxycodone Screen (FRI0ZS=147) Urine Methadone Screen (YTFKWO=434) Ur Propoxyphene Screen (XOXAWV=588) Acetaminophen (10-30) ug/mL Ur Barbiturates Screen (ACICYZ=142) Ur Tricyclics Screen (YABDQK=761) Ur Phencyclidine Scrn (CUTOFF=25) Ur Amphetamine Screen (DFGAVZ=078) U Methamphetamines Scrn (EATATP=088) U Benzodiazepines Scrn (YEZABH=112) U Cocaine Metab Screen (XXTAYP=024) U Marijuana (THC) Screen (CUTOFF=50) Ethyl Alcohol (0.00) gm% 03/26/20 03/26/20 03/26/20 Range/Units 01:25 01:25 02:07 WBC (3.98-10.04) K/mm3 RBC (3.98-5.22) M/mm3 Hgb (11.2-15.7) gm/dl Hct (34.1-44.9) % MCV (79.4-94.8) fl MCH (25.6-32.2) pg MCHC (32.2-35.5) g/dl RDW Std Deviation (36.4-46.3) fL Plt Count (182-369) K/mm3 MPV (9.4-12.3) fl Neut % (Auto) (34.0-71.1) % Lymph % (Auto) (19.3-51.7) % [place] % (Auto) (4.7-12.5) % Eos % (Auto) (0.7-5.8) Baso % (Auto) (0.1-1.2) % Neut # (Auto) (1.56-6.13) K/mm3 Lymph # (Auto) (1.18-3.74) K/mm3 [place] # (Auto) (0.24-0.36) K/mm3 Eos # (Auto) (0.04-0.36) K/mm3 Baso # (Auto) (0.01-0.08) K/mm3 Sodium (136-145) mEq/L Potassium (3.5-5.1) mEq/L Chloride (98-107) mEq/L Carbon Dioxide (21-32) mEq/L Anion Gap (5-15) BUN (7-18) mg/dL Creatinine (0.55-1.02) mg/dL Est Cr Clr Drug Dosing mL/min Estimated GFR (MDRD) (>60) mL/min BUN/Creatinine Ratio (14-18) Glucose (74-106) mg/dL POC Glucose 77 (70-105) mg/dL Calcium (8.5-10.1) mg/dL Magnesium (1.8-2.4) mg/dl Total Bilirubin (0.2-1.0) mg/dL AST (15-37) U/L ALT (14-59) U/L Alkaline Phosphatase (46-116) U/L Total Protein (6.4-8.2) g/dl Albumin (3.4-5.0) g/dl Globulin gm/dL Albumin/Globulin Ratio (1-2) Salicylates 5.6 (2.8-20) mg/dL Urine Opiates Screen (YVBAQG=691) Ur Buprenorphine Scrn (CUTOFF=10) Ur Oxycodone Screen (DGH4NT=642) Urine Methadone Screen (NOFKVQ=548) Ur Propoxyphene Screen (JHIJOQ=665) Acetaminophen 0 L (10-30) ug/mL Ur Barbiturates Screen (JOZPPQ=785) Ur Tricyclics Screen (GYYPTP=363) Ur Phencyclidine Scrn (CUTOFF=25) Ur Amphetamine Screen (YJUODF=987) U Methamphetamines Scrn (BNMKID=993) U Benzodiazepines Scrn (GBUSRJ=551) U Cocaine Metab Screen (DEZHBV=642) U Marijuana (THC) Screen (CUTOFF=50) Ethyl Alcohol 0.00 (0.00) gm% 03/26/20 03/26/20 03/26/20 Range/Units 02:49 03:11 04:04 WBC (3.98-10.04) K/mm3 RBC (3.98-5.22) M/mm3 Hgb (11.2-15.7) gm/dl Hct (34.1-44.9) % MCV (79.4-94.8) fl MCH (25.6-32.2) pg MCHC (32.2-35.5) g/dl RDW Std Deviation (36.4-46.3) fL Plt Count (182-369) K/mm3 MPV (9.4-12.3) fl Neut % (Auto) (34.0-71.1) % Lymph % (Auto) (19.3-51.7) % [place] % (Auto) (4.7-12.5) % Eos % (Auto) (0.7-5.8) Baso % (Auto) (0.1-1.2) % Neut # (Auto) (1.56-6.13) K/mm3 Lymph # (Auto) (1.18-3.74) K/mm3 [place] # (Auto) (0.24-0.36) K/mm3 Eos # (Auto) (0.04-0.36) K/mm3 Baso # (Auto) (0.01-0.08) K/mm3 Sodium (136-145) mEq/L Potassium (3.5-5.1) mEq/L Chloride (98-107) mEq/L Carbon Dioxide (21-32) mEq/L Anion Gap (5-15) BUN (7-18) mg/dL Creatinine (0.55-1.02) mg/dL Est Cr Clr Drug Dosing mL/min Estimated GFR (MDRD) (>60) mL/min BUN/Creatinine Ratio (14-18) Glucose (74-106) mg/dL POC Glucose 121 H 111 H (70-105) mg/dL Calcium (8.5-10.1) mg/dL Magnesium (1.8-2.4) mg/dl Total Bilirubin (0.2-1.0) mg/dL AST (15-37) U/L ALT (14-59) U/L Alkaline Phosphatase (46-116) U/L Total Protein (6.4-8.2) g/dl Albumin (3.4-5.0) g/dl Globulin gm/dL Albumin/Globulin Ratio (1-2) Salicylates (2.8-20) mg/dL Urine Opiates Screen Negative (OQYDEH=965) Ur Buprenorphine Scrn Negative (CUTOFF=10) Ur Oxycodone Screen Negative (NAK1NG=855) Urine Methadone Screen Negative (RHJICL=349) Ur Propoxyphene Screen Negative (BTQLMG=601) Acetaminophen (10-30) ug/mL Ur Barbiturates Screen Negative (KPKOIH=871) Ur Tricyclics Screen Negative (YCMUPI=913) Ur Phencyclidine Scrn Negative (CUTOFF=25) Ur Amphetamine Screen Negative (VBEIWJ=518) U Methamphetamines Scrn Negative (JODGIO=012) U Benzodiazepines Scrn Negative (LUNCKX=153) U Cocaine Metab Screen Negative (TWROFM=860) U Marijuana (THC) Screen Negative (CUTOFF=50) Ethyl Alcohol (0.00) gm% 03/26/20 03/26/20 03/26/20 Range/Units 05:04 05:58 06:55 WBC (3.98-10.04) K/mm3 RBC (3.98-5.22) M/mm3 Hgb (11.2-15.7) gm/dl Hct (34.1-44.9) % MCV (79.4-94.8) fl MCH (25.6-32.2) pg MCHC (32.2-35.5) g/dl RDW Std Deviation (36.4-46.3) fL Plt Count (182-369) K/mm3 MPV (9.4-12.3) fl Neut % (Auto) (34.0-71.1) % Lymph % (Auto) (19.3-51.7) % [place] % (Auto) (4.7-12.5) % Eos % (Auto) (0.7-5.8) Baso % (Auto) (0.1-1.2) % Neut # (Auto) (1.56-6.13) K/mm3 Lymph # (Auto) (1.18-3.74) K/mm3 [place] # (Auto) (0.24-0.36) K/mm3 Eos # (Auto) (0.04-0.36) K/mm3 Baso # (Auto) (0.01-0.08) K/mm3 Sodium (136-145) mEq/L Potassium (3.5-5.1) mEq/L Chloride (98-107) mEq/L Carbon Dioxide (21-32) mEq/L Anion Gap (5-15) BUN (7-18) mg/dL Creatinine (0.55-1.02) mg/dL Est Cr Clr Drug Dosing mL/min Estimated GFR (MDRD) (>60) mL/min BUN/Creatinine Ratio (14-18) Glucose (74-106) mg/dL POC Glucose 94 88 92 (70-105) mg/dL Calcium (8.5-10.1) mg/dL Magnesium (1.8-2.4) mg/dl Total Bilirubin (0.2-1.0) mg/dL AST (15-37) U/L ALT (14-59) U/L Alkaline Phosphatase (46-116) U/L Total Protein (6.4-8.2) g/dl Albumin (3.4-5.0) g/dl Globulin gm/dL Albumin/Globulin Ratio (1-2) Salicylates (2.8-20) mg/dL Urine Opiates Screen (WIGRON=632) Ur Buprenorphine Scrn (CUTOFF=10) Ur Oxycodone Screen (QXN6ZJ=913) Urine Methadone Screen (XYMTKH=405) Ur Propoxyphene Screen (AQEYLJ=085) Acetaminophen (10-30) ug/mL Ur Barbiturates Screen (IVWDQZ=488) Ur Tricyclics Screen (OAWBJI=336) Ur Phencyclidine Scrn (CUTOFF=25) Ur Amphetamine Screen (XIUKUM=496) U Methamphetamines Scrn (AKSKFU=180) U Benzodiazepines Scrn (DOKWIF=659) U Cocaine Metab Screen (NEYPPI=599) U Marijuana (THC) Screen (CUTOFF=50) Ethyl Alcohol (0.00) gm% Meds: Medications Generic Name Dose Route Start Last Admin Trade Name Freq PRN Reason Stop Dose Admin Dextrose/Water 1,000 mls @ 85 mls/hr 03/26/20 06:15 Dextrose 10% In Water IV ASDIRECTED JODI Discontinued Medications Generic Name Dose Route Start Last Admin Trade Name Freq PRN Reason Stop Dose Admin Acetaminophen 975 mg 03/26/20 02:44 03/26/20 02:47 Tylenol PO 03/26/20 02:45 975 mg NOW STA Administration Dextrose/Water Confirm 03/26/20 01:35 03/26/20 01:44 Dextrose 10% In Water Administered 03/26/20 01:36 Not Given Dose 1,000 mls @ as directed .ROUTE .STK-MED ONE Dextrose/Water 1,000 mls @ 100 mls/hr 03/26/20 01:45 03/26/20 06:57 Dextrose 10% In Water IV 85 mls/hr ASDIRECTED JODI Infusion Dextrose/Water 1,000 mls @ 75 mls/hr 03/26/20 03:00 Dextrose 10% In Water IV ASDIRECTED [facility] - Re-Assessments/Exams Free Text/Narrative Re-Assessment/Exam: 03/26/20 01:45 As above, the patient has a history of 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 Her Accu-Chek was as low as 25 at home, although was 80 prior to coming to the ED, and down to 32 upon presentation to the ED. I have ordered a work-up that includes a CBC, CMP , and magnesium level. In the meantime, the patient will be started on D10W at 100 mL/h, and we will Accu-Chek her frequently, titrating the IV fluid as needed. The plan will be to keep her here in the ED overnight. If she still requires a significant amount of dextrose-containing IV fluid by the morning, she will need to be admitted. 03/26/20 02:01 I see from the patient's medical records that she had an addiction to oxycodone up until December of this year. I have therefore added an acetaminophen level, salicylate level, EtOH level, and a urine drug screen to the patient's work-up. I let lab know. 03/26/20 02:18 I talked to the patient about her blood pressure, noting that her medical record indicates that she is on 3 antihypertensives; clonidine, losartan, and chlorthalidone. The patient confirmed that she is still on all 3 of those. I have therefore ordered orthostatics. Her Accu-Chek at 02:07 was up to 77, however, she is still quite lethargic, more than when I was interviewing her earlier. 03/26/20 02:26 The patient is not orthostatic. 03/26/20 02:37 The patient's CBC is unremarkable. Her CMP is remarkable for a sodium slightly depressed at 133 and a potassium slightly depressed at 3.4. Her blood glucose is severely depressed at 34, with the remainder of her CMP being unremarkable. Her magnesium level is within normal limits at 1.8. Her acetaminophen level is 0. Her salicylate level is within normal limits at 5.6. Her EtOH level is 0.00. The patient has not yet provided a urine sample for the urine drug screen. 03/26/20 02:55 The patient's Accu-Chek at 02:49 is up to 121. I have ordered her D10W to be decreased to 75 mL/h. 03/26/20 03:37 The patient's urine drug screen is completely negative. 03/26/20 05:05 Accu-Chek at 04:04 was 111. No change in the IV fluid rate. Accu-Chek at 05: 04 is 94. The patient's D10W rate is still 75 mL/h, and it does not appear that I can reduce it yet. We will continue to Accu-Chek her hourly, but if she is still requires dextrose at 07:00, she will need to be admitted. 03/26/20 06:04 The patient's Accu-Chek at 05:58 is 88. With her blood glucose trending downward, she is not going to be able to be discharged home at 7:00. She will need to be placed into observation. I will contact Dr. Krishnamurthy at 06:30. In the meantime, I will increase her D10W to 85 mL/h. 03/26/20 06:[address] Colby here in the ED. He is familiar with the patient , and feels that we have exhausted our diagnostic ability. Any of the pertinent test that he has ordered take about 4 days to return. He recommended that the patient be transferred to [facility], where she can be evaluated and treated by an Clerk Of Works. 03/26/20 06:[address] [facility] She is much more alert now. She is reluctant, but agreeable. 03/26/20 07:05 I have ordered a [employer] GeneXpert Xpress System SARS-CoV-2 virus test. 03/26/20 07:28 Case discussed with Rosita at [facility], at 06:56. Case then discussed with Dr. Henao, Hospitalist at [facility], at 07:13. Case then discussed with Dr. Grady, Clerk Of Works at [facility], at 07: 17. Based on the patient's history, he feels that the patient likely has reactive hypoglycemia secondary to her gastric bypass. He stated that the main treatment is a proper diet. The patient cannot have simple carbohydrates. She needs more complex carbohydrates, combined with protein and fat. She may need to have the addition of acarbose with her meals. He suggested that we could try fasting her, without IV dextrose, to see if her blood glucose drops below 55 , and if so, then perform a work-up for an insulinoma. Alternatively, he suggested that we could stop the patient's IV dextrose and give her a complex carbohydrate/protein/fat meal. I explained that such an evaluation could not reasonably be done in the emergency department, and that the patient's PCP wanted her to be evaluated by an Clerk Of Works anyway, but that the patient had no way of getting to [facility] on her own, therefore he agreed to the transfer. Dr. Henao will be the accepting physician. The patient will be transferred by fixed wing. Departure - Departure Time of Disposition: 07:30 Disposition: DC/Tfer to Acute Hospital 02 Condition: Good Clinical Impression: Reactive hypoglycemia - Discharge Information *PRESCRIPTION DRUG MONITORING PROGRAM REVIEWED*: Not Applicable *COPY OF PRESCRIPTION DRUG MONITORING REPORT IN PATIENT ROSA: Not Applicable Referrals: Clifford Werner MD [Primary Care Provider] - Joss Powers MD [Ordering Only Provider] - Joss Sapp MD [Physician] - Forms: ED Department Discharge Sepsis Event Note - Evaluation Sepsis Screening Result: No Definite Risk - Focused Exam Vital Signs: Vital Signs Temp Pulse Resp BP Pulse Ox 03/26/20 01:14 36.6 C 77 14 97/58 L 100 Date Exam was Performed: 03/26/20 Time Exam was Performed: 07:48 - My Orders Last 24 Hours: My Active Orders 03/26/20 01:15 Accu Check [Blood Glucose Check, Bedside] [RC] ONETIME 03/26/20 02:17 Orthostatic Vital Signs [RC] STAT 03/26/20 02:45 Blood Glucose Check, Bedside [RC] ONETIME 03/26/20 06:15 Dextrose 10% in Water 1,000 ml IV ASDIRECTED 03/26/20 07:12 CORONAVIRUS COVID-19 RAPID PCR [MOLEC] Stat - Assessment/Plan Last 24 Hours: My Active Orders 03/26/20 01:15 Accu Check [Blood Glucose Check, Bedside] [RC] ONETIME 03/26/20 02:17 Orthostatic Vital Signs [RC] STAT 03/26/20 02:45 Blood Glucose Check, Bedside [RC] ONETIME 03/26/20 06:15 Dextrose 10% in Water 1,000 ml IV ASDIRECTED 03/26/20 07:12 CORONAVIRUS COVID-19 RAPID PCR [MOLEC] Stat
[2020-03-26] MEDS ORDERED: Acetaminophen 325 MG Tab PO STA (02:44)
[2020-03-26 08:50] VITALS: BP 117/76; PULSE 74
== END 2020-03-26 08:29 ==
LOC: JD.ED 01:04
DX: E11.649 Type 2 diabetes mellitus with hypoglycemia without coma (principal); I10 Essential (primary) hypertension; R56.9 Unspecified convulsions; F17.210 Nicotine dependence, cigarettes, uncomplicated; F41.9 Anxiety disorder, unspecified; F32.9 Major depressive disorder, single episode, unspecified; K21.9 Gastro-esophageal reflux disease without esophagitis; Z88.1 Allergy status to other antibiotic agents; Z88.5 Allergy status to narcotic agent; Z88.8 Allergy status to other drugs, medicaments and biological substances; Z79.899 Other long term (current) drug therapy
CPT/HCPCS: 36415; 80053; 80306; 80307; 82962; 83735; 85025; 87635; 96360; 96361; 99285; A9270; U0002

== ENCOUNTER 2020-05-19 16:00 | Inpatient (IN) | payer MEDICARE, MEDICAID ==
[2020-05-19] MEDS ORDERED: Dextrose 5%-0.9% NaCl 1,000 ML IV SCH (16:30)
--- NOTE | 2020-05-19 16:30 | EDM.PDOC ---
ED HPI GENERAL MEDICAL PROBLEM - General Chief Complaint: Diabetic Complaint Stated Complaint: LOW BLOOD SUGAR Time Seen by Provider: 05/19/20 16:26 Source of Information: Reports: Patient History Limitations: Reports: No Limitations - History of Present Illness INITIAL COMMENTS - FREE TEXT/NARRATIVE: 60-year-old female presents to the ED complaining of low blood sugar. Patient reports that she is not diabetic and takes no diabetic medications. She states she gets reactive hypoglycemia ever since she had gastric bypass surgery in 2007. She is prone to dumping syndrome and has intermittent problems with diarrhea and constipation. She states if she gets diarrhea couple of times she tends to have very bouts of low blood sugars. She states is been as low as 37 in the past. Reports that she has had problems with low blood potassium and magnesium levels in the past as well. Patient has an underlying psychiatric illness I believe bipolar affective disorder. She states she has been compliant with her medications and the only thing that changed recently was the addition of furosemide to her treatment plan because of increased swelling of her lower extremities. States her legs are looking and feeling better since being on Lasix. He states she feels generally weak. Onset: Gradual Onset Date: 05/16/20 (And has not been feeling well for the last 3 or 4 days and she has been blaming her blood sugar for this.) Duration: Day(s):, Getting Worse Location: Reports: Generalized (Generalized weakness and fatigue. She also feels very cold.) Quality: Reports: Other Severity: Moderate (Neurolysed weakness) Improves with: Reports: None Worsens with: Reports: None Context: Denies: Activity, Exercise, Lifting, Sick Contact, Trauma, Other Associated Symptoms: Reports: Confusion, Cough, cough w sputum (Smoker's cough), Loss of Appetite, Malaise, Nausea/Vomiting, Shortness of Breath, Weakness (Neurolysed weakness.). Denies: No Other Symptoms, Chest Pain ( occasional sputum production), Diaphoresis (Mildly confused at times), Fever/Chills, Headaches, Rash, Seizure, Syncope Treatments ORE PUNCHER: Reports: Other (see below) (None.) - Related Data Allergies Allergy/AdvReac Type Severity Reaction Status Date / Time cephalexin Allergy Hives Verified 03/26/20 01:19 morphine Allergy Itching Verified 03/26/20 01:19 venlafaxine [From Effexor] Allergy Cannot Verified 03/26/20 01:19 Remember lisinopril AdvReac Muscle Verified 03/26/20 01:19 Aches Home Meds: Home Meds Gabapentin [Neurontin] 600 mg PO TID 06/22/19 [History] cloNIDine [Catapres] 0.1 mg PO BEDTIME PRN 06/22/19 [History] traZODone HCl [Trazodone HCl] 100 mg PO BEDTIME 06/24/19 [History] Chlorthalidone 25 mg PO DAILY 01/27/20 [History] Divalproex Sodium [Depakote] 500 mg PO BID 01/27/20 [History] clonazePAM [Clonazepam] 1 mg PO TID 02/29/20 [History] ARIPiprazole [Abilify] 2 mg PO DAILY #30 tablet 03/02/20 [Rx] Losartan [Cozaar] 100 mg PO BEDTIME #0 03/02/20 [Rx] Sertraline [Zoloft] 100 mg PO DAILY #30 tablet 03/02/20 [Rx] traZODone HCl [Trazodone HCl] 100 mg PO BEDTIME #30 tablet 03/02/20 [Rx] SUMAtriptan [Imitrex] 100 mg PO ASDIRECTED PRN #10 tablet MDD 200 03/17/20 [Rx] Past Medical History HEENT History: Reports: Allergic Rhinitis, Impaired Vision Other HEENT History: wears glasses, dentures Cardiovascular History: Reports: Blood Clots/VTE/DVT, Hypertension Respiratory History: Reports: PE Gastrointestinal History: Reports: GERD, PUD, Other (See Below) (SBO) Other Gastrointestinal History: Peritonitis, gastric ulcer Genitourinary History: Reports: UTI, Recurrent SENIOR CONTRACT SPECIALIST History: Reports: Other SENIOR CONTRACT SPECIALIST History: hysterectomy Musculoskeletal History: Reports: Osteoarthritis Neurological History: Reports: Migraines, Seizure Other Neuro History: Patient reports last seizure within the last year, about 8 months ago. Psychiatric History: Reports: Addiction (oxycodone), Anxiety, Bipolar (History would suggest bipolar affective disorder with occasional psychotic breaks.), Depression, Psych Hospitalization(s) Other Psychiatric History: Oxycodone Addiction until January of 2020 Endocrine/Metabolic History: Reports: Diabetes, Type II (resolved after gastric bypass), Other (See Below) (Postgastric bypass hypoglycemia) Other Endocrine/Metabolic History: Diabtetes type II prior to gastric procedure. 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 Currently she weighs around 165. She has intermittent dumping syndrome but will get constipated once in a while as well. He was diabetic taking oral medications when she had her gastric bypass surgery.), Cholecystectomy (around 2008), Hernia, Abdominal, Lysis of Adhesions (x 4) Female Surgical History: Reports: Hysterectomy (complete), Tubal Ligation Musculoskeletal Surgical History: Reports: Shoulder Surgery (left, arthroscopic x 1, open x 1) Social & Family History - Family History Family Medical History: Noncontributory - Tobacco Use Smoking Status *Q: Current Every Day Smoker Tobacco Use Within Last Twelve Months: Cigarettes (Currently smokes pack and a half a day.) - Caffeine Use Caffeine Use: Reports: Coffee Caffeine Use Comment: unknown - Living Situation & Occupation Living situation: Reports: (01/16/2020), with Family (Daughter + her 2 kids) Occupation: Disabled ED ROS GENERAL - Review of Systems Review Of Systems: See Below Constitutional: Reports: Malaise, Weakness, Fatigue, Decreased Appetite, Other (Eels very cold.). Denies: Fever, Chills HEENT: Reports: Glasses Respiratory: Reports: Shortness of Breath, Wheezing, Cough, Sputum. Denies: Hemoptysis Cardiovascular: Reports: Blood Pressure Problem, Dyspnea on Exertion ( Since she has been on Lasix daily for dependent edema.), Edema (Feels a little lightheaded today which he blames on low blood sugar.), Lightheadedness. Denies: Chest Pain (Pokers cough.), Claudication, Orthopnea, Palpitations ( Chronically) Endocrine: Reports: Fatigue GI/Abdominal: Reports: Constipation, Diarrhea, Decreased Appetite ( Pain syndrome since having gastric bypass surgery in 2007.), Other (Intermittent constipation with diarrhea.) : Reports: Frequency, Incontinence (Usually cough induced or stress-induced.) Musculoskeletal: Reports: Back Pain, Joint Pain (Hips neck and shoulders at times.) Skin: Reports: No Symptoms Neurological: Reports: Dizziness, Headache, Difficulty Walking, Weakness. Denies: Numbness, Paresthesia, Pre-Existing Deficit (Legs feel super heavy today.), Syncope, Tingling (Usual headaches.), Trouble Speaking, Change in Speech, Gait Disturbance Psychiatric: Reports: Depression, Mood Lability (Manic depression on multiple medications.), Other (Chronic insomnia) Hematologic/Lymphatic: Reports: No Symptoms Immunologic: Reports: No Symptoms ED EXAM GENERAL NO PERIP PULSE - Physical Exam Exam: See Below Exam Limited By: No Limitations General Appearance: Alert, WD/WN, Mild Distress (Very cold and chilled. She is requesting extra blankets.), Other (Vital signs show temperature 36.1 heart rate of 65 and sinus respiratory to 16 blood pressure is not recorded is 78/48 at this time.) Eye Exam: Bilateral Eye: Normal Inspection, PERRL Ears: Normal TMs Throat/Mouth: Other (Tongue is slightly dry and coated.) Head: Atraumatic, Normocephalic, Other (No outward signs of head or facial trauma.) Neck: Normal Inspection, Supple, Non-Tender, Full Range of Motion. No: Carotid Bruit, Lymphadenopathy (L), Lymphadenopathy (R), Thyromegaly Respiratory/Chest: No Respiratory Distress, Decreased Breath Sounds, Wheezing (Breath sounds are minimally decreased to the lower 20% of lung [place] bilaterally. Very occasional). No: Respiratory Distress, Rales ( expiratory wheeze posteriorly.), Rhonchi Cardiovascular: Normal Peripheral Pulses, Regular Rate, Rhythm, No Edema, No Gallop, No Murmur, No Rub GI/Abdominal: Normal Bowel Sounds, Soft, Non-Tender, No Organomegaly, No Abnormal Bruit, No Mass, Pelvis Stable, Other (Full surgical scars. Patient has had gastric bypass cholecystectomy and total abdominal hysterectomy and BSO. Is also had multiple surgeries for small bowel obstructions.) Back Exam: Normal Inspection, Full Range of Motion. No: CVA Tenderness (L), CVA Tenderness (R) Extremities: Normal Range of Motion, Non-Tender, Other (His pedal edema both lower extremities.) Neurological: Alert, Oriented, CN II-XII Intact, Normal Cognition, Normal Gait Psychiatric: Normal Affect, Normal Mood Skin Exam: Warm, Dry, Intact, Normal Color, No Rash EKG INTERPRETATION EKG Date: 05/19/20 Time: 18:26 Rhythm: Other (Sinus bradycardia) Rate (Beats/Min): 54 [place]: Normal P-Wave: Present (Consider left atrial hypertrophy. First-degree AV block.) QRS: Normal ST-T: Other (T wave flattening lead III and V2 nonspecific findings likely due to electrolyte abnormalities.) EKG Interpretation Comments: Abnormal ECG Course - Vital Signs Last Recorded V/S: Last Vital Signs Temp 36.1 C 05/19/20 16:13 Pulse 65 05/19/20 16:13 Resp 16 05/19/20 16:13 BP Pulse Ox 98 05/19/20 16:13 Orthostatic Blood Pressure [ 82/52 Standing] Orthostatic Blood Pressure [ 89/60 Supine] - Orders/Labs/Meds Orders: Active Orders 24 hr Category Date Time Status EKG Documentation Completion [RC] STAT Care 05/19/20 17:39 Active CULTURE URINE [RM] Routine Lab 05/19/20 17:59 Ordered LACTIC ACID [CHEM] Stat Lab 05/19/20 17:50 Received OSMOLALITY,SERUM [CHEM] Stat Lab 05/19/20 17:48 Ordered VITAMIN B12 [CHEM] Stat Lab 05/19/20 18:09 Ordered Dextrose 5%-0.9% NaCl [Dextrose 5%-Normal Saline] 1,000 Med 05/19/20 16:30 Active ml IV ASDIRECTED Magnesium Sulfate/D5W [Magnesium Sulfate in D5W 100 Med 05/19/20 17:30 Active Premix] 1 gm Premix Bag 1 bag IV Q1H Potassium Chloride [KCl 10 MEQ in Water 100 ML] 10 meq Med 05/19/20 17:30 Active Premix Bag 1 bag IV Q1H Medication Orders Dextrose/Sodium Chloride (Dextrose 5%-Normal Saline) 1,000 mls @ 500 mls/hr IV ASDIRECTED JODI Last Infusion: 05/19/20 17:41 Dose: 999 mls/hr Documented by: Admin: 05/19/20 16:39 Dose: 500 mls/hr Documented by: KIRILL Potassium Chloride 10 meq/ (Premix) 100 mls @ 100 mls/hr IV Q1H JODI Stop: 05/19/20 23:29 Last Admin: 05/19/20 17:35 Dose: 100 mls/hr Documented by: KIRILL Magnesium Sulfate/Dextrose 1 (gm/ Premix) 100 mls @ 100 mls/hr IV Q1H JODI Stop: 05/19/20 21:29 Last Admin: 05/19/20 17:35 Dose: 100 mls/hr Documented by: KIRILL Labs: Laboratory Tests 05/19/20 05/19/20 05/19/20 Range/Units 16:15 16:15 16:15 WBC 3.54 L (3.98-10.04) K/mm3 RBC 3.96 L (3.98-5.22) M/mm3 Hgb 10.8 L (11.2-15.7) gm/dl Hct 33.1 L (34.1-44.9) % MCV 83.6 D (79.4-94.8) fl MCH 27.3 (25.6-32.2) pg MCHC 32.6 (32.2-35.5) g/dl RDW Std Deviation 53.7 H (36.4-46.3) fL Plt Count 233 (182-369) K/mm3 MPV 9.4 (9.4-12.3) fl Neut % (Auto) 45.0 (34.0-71.1) % Lymph % (Auto) 40.1 (19.3-51.7) % [place] % (Auto) 11.0 (4.7-12.5) % Eos % (Auto) 2.8 (0.7-5.8) Baso % (Auto) 1.1 (0.1-1.2) % Neut # (Auto) 1.59 (1.56-6.13) K/mm3 Lymph # (Auto) 1.42 (1.18-3.74) K/mm3 [place] # (Auto) 0.39 H (0.24-0.36) K/mm3 Eos # (Auto) 0.10 (0.04-0.36) K/mm3 Baso # (Auto) 0.04 (0.01-0.08) K/mm3 Sodium 124 L (136-145) mEq/L Potassium 2.6 L (3.5-5.1) mEq/L Chloride 86 L (98-107) mEq/L Carbon Dioxide 29 (21-32) mEq/L Anion Gap 11.6 (5-15) BUN 13 (7-18) mg/dL Creatinine 1.0 (0.55-1.02) mg/dL Est Cr Clr Drug Dosing 59.63 mL/min Estimated GFR (MDRD) 57 (>60) mL/min BUN/Creatinine Ratio 13.0 L (14-18) Glucose 66 L (74-106) mg/dL Hemoglobin A1c 5.30 (4.50-6.20) % Calcium 8.8 (8.5-10.1) mg/dL Magnesium 1.7 L (1.8-2.4) mg/dl Total Bilirubin 0.4 (0.2-1.0) mg/dL AST 20 (15-37) U/L ALT 20 (14-59) U/L Alkaline Phosphatase 63 (46-116) U/L Troponin I < 0.017 (0.00-0.056) ng/mL C-Reactive Protein 0.3 (<1.0) mg/dL NT-Pro-B Natriuret Pep (0-125) pg/mL Total Protein 7.8 (6.4-8.2) g/dl Albumin 3.9 (3.4-5.0) g/dl Globulin 3.9 gm/dL Albumin/Globulin Ratio 1.0 (1-2) TSH 3rd Generation (0.358-3.74) uIU/mL Urine Color (Yellow) Urine Appearance (Clear) Urine pH (5.0-8.0) Ur Specific [place] (1.005-1.030) Urine Protein (Negative) Urine Glucose (UA) (Negative) Urine Ketones (Negative) Urine Occult Blood (Negative) Urine Nitrite (Negative) Urine Bilirubin (Negative) Urine Urobilinogen (0.2-1.0) Ur Leukocyte Esterase (Negative) Urine RBC (0-5) /hpf Urine WBC (0-5) /hpf Ur Squamous Epith Cells (0-5) /hpf Urine Bacteria (FEW) /hpf Urine Mucus (FEW) /hpf Urine Opiates Screen (AWLPGA=535) Ur Buprenorphine Scrn (CUTOFF=10) Ur Oxycodone Screen (LXC3JE=327) Urine Methadone Screen (VWHCSG=548) Ur Propoxyphene Screen (TSIKPF=331) Ur Barbiturates Screen (NEKCLW=132) Valproic Acid (50.0-100.0) ug/mL Ur Tricyclics Screen (XSGIFK=318) Ur Phencyclidine Scrn (CUTOFF=25) Ur Amphetamine Screen (POBCVS=171) U Methamphetamines Scrn (ACAKOD=487) U Benzodiazepines Scrn (PQNWXG=630) U Cocaine Metab Screen (AXOSYN=261) U Marijuana (THC) Screen (CUTOFF=50) 05/19/20 05/19/20 05/19/20 Range/Units 16:15 16:15 16:33 WBC (3.98-10.04) K/mm3 RBC (3.98-5.22) M/mm3 Hgb (11.2-15.7) gm/dl Hct (34.1-44.9) % MCV (79.4-94.8) fl MCH (25.6-32.2) pg MCHC (32.2-35.5) g/dl RDW Std Deviation (36.4-46.3) fL Plt Count (182-369) K/mm3 MPV (9.4-12.3) fl Neut % (Auto) (34.0-71.1) % Lymph % (Auto) (19.3-51.7) % [place] % (Auto) (4.7-12.5) % Eos % (Auto) (0.7-5.8) Baso % (Auto) (0.1-1.2) % Neut # (Auto) (1.56-6.13) K/mm3 Lymph # (Auto) (1.18-3.74) K/mm3 [place] # (Auto) (0.24-0.36) K/mm3 Eos # (Auto) (0.04-0.36) K/mm3 Baso # (Auto) (0.01-0.08) K/mm3 Sodium (136-145) mEq/L Potassium (3.5-5.1) mEq/L Chloride (98-107) mEq/L Carbon Dioxide (21-32) mEq/L Anion Gap (5-15) BUN (7-18) mg/dL Creatinine (0.55-1.02) mg/dL Est Cr Clr Drug Dosing mL/min Estimated GFR (MDRD) (>60) mL/min BUN/Creatinine Ratio (14-18) Glucose (74-106) mg/dL Hemoglobin A1c (4.50-6.20) % Calcium (8.5-10.1) mg/dL Magnesium (1.8-2.4) mg/dl Total Bilirubin (0.2-1.0) mg/dL AST (15-37) U/L ALT (14-59) U/L Alkaline Phosphatase (46-116) U/L Troponin I (0.00-0.056) ng/mL C-Reactive Protein (<1.0) mg/dL NT-Pro-B Natriuret Pep 422 H (0-125) pg/mL Total Protein (6.4-8.2) g/dl Albumin (3.4-5.0) g/dl Globulin gm/dL Albumin/Globulin Ratio (1-2) TSH 3rd Generation 3.535 (0.358-3.74) uIU/mL Urine Color (Yellow) Urine Appearance (Clear) Urine pH (5.0-8.0) Ur Specific [place] (1.005-1.030) Urine Protein (Negative) Urine Glucose (UA) (Negative) Urine Ketones (Negative) Urine Occult Blood (Negative) Urine Nitrite (Negative) Urine Bilirubin (Negative) Urine Urobilinogen (0.2-1.0) Ur Leukocyte Esterase (Negative) Urine RBC (0-5) /hpf Urine WBC (0-5) /hpf Ur Squamous Epith Cells (0-5) /hpf Urine Bacteria (FEW) /hpf Urine Mucus (FEW) /hpf Urine Opiates Screen Negative (XMUQUA=883) Ur Buprenorphine Scrn Negative (CUTOFF=10) Ur Oxycodone Screen Negative (NZQ4HL=721) Urine Methadone Screen Negative (VMDPVW=120) Ur Propoxyphene Screen Negative (QAYFFZ=071) Ur Barbiturates Screen Negative (MJLXXV=586) Valproic Acid 58.2 (50.0-100.0) ug/mL Ur Tricyclics Screen Negative (SMHGQV=697) Ur Phencyclidine Scrn Negative (CUTOFF=25) Ur Amphetamine Screen Negative (XBVGKH=607) U Methamphetamines Scrn Negative (RWYJVX=449) U Benzodiazepines Scrn Negative (RVHMJK=768) U Cocaine Metab Screen Negative (AIKIFS=335) U Marijuana (THC) Screen Presumptive positive H (CUTOFF=50) 07/18/20 Range/Units 16:33 WBC (3.98-10.04) K/mm3 RBC (3.98-5.22) M/mm3 Hgb (11.2-15.7) gm/dl Hct (34.1-44.9) % MCV (79.4-94.8) fl MCH (25.6-32.2) pg MCHC (32.2-35.5) g/dl RDW Std Deviation (36.4-46.3) fL Plt Count (182-369) K/mm3 MPV (9.4-12.3) fl Neut % (Auto) (34.0-71.1) % Lymph % (Auto) (19.3-51.7) % [place] % (Auto) (4.7-12.5) % Eos % (Auto) (0.7-5.8) Baso % (Auto) (0.1-1.2) % Neut # (Auto) (1.56-6.13) K/mm3 Lymph # (Auto) (1.18-3.74) K/mm3 [place] # (Auto) (0.24-0.36) K/mm3 Eos # (Auto) (0.04-0.36) K/mm3 Baso # (Auto) (0.01-0.08) K/mm3 Sodium (136-145) mEq/L Potassium (3.5-5.1) mEq/L Chloride (98-107) mEq/L Carbon Dioxide (21-32) mEq/L Anion Gap (5-15) BUN (7-18) mg/dL Creatinine (0.55-1.02) mg/dL Est Cr Clr Drug Dosing mL/min Estimated GFR (MDRD) (>60) mL/min BUN/Creatinine Ratio (14-18) Glucose (74-106) mg/dL Hemoglobin A1c (4.50-6.20) % Calcium (8.5-10.1) mg/dL Magnesium (1.8-2.4) mg/dl Total Bilirubin (0.2-1.0) mg/dL AST (15-37) U/L ALT (14-59) U/L Alkaline Phosphatase (46-116) U/L Troponin I (0.00-0.056) ng/mL C-Reactive Protein (<1.0) mg/dL NT-Pro-B Natriuret Pep (0-125) pg/mL Total Protein (6.4-8.2) g/dl Albumin (3.4-5.0) g/dl Globulin gm/dL Albumin/Globulin Ratio (1-2) TSH 3rd Generation (0.358-3.74) uIU/mL Urine Color Yellow (Yellow) Urine Appearance Clear (Clear) Urine pH 7.0 (5.0-8.0) Ur Specific [place] 1.015 (1.005-1.030) Urine Protein Negative (Negative) Urine Glucose (UA) Negative (Negative) Urine Ketones Negative (Negative) Urine Occult Blood Trace-intact H (Negative) Urine Nitrite Negative (Negative) Urine Bilirubin Negative (Negative) Urine Urobilinogen 0.2 (0.2-1.0) Ur Leukocyte Esterase Negative (Negative) Urine RBC 5-10 H (0-5) /hpf Urine WBC 0-5 (0-5) /hpf Ur Squamous Epith Cells 0-5 (0-5) /hpf Urine Bacteria Moderate H (FEW) /hpf Urine Mucus Few (FEW) /hpf Urine Opiates Screen (KASAOU=778) Ur Buprenorphine Scrn (CUTOFF=10) Ur Oxycodone Screen (UYE4LP=888) Urine Methadone Screen (LWLDNK=900) Ur Propoxyphene Screen (MZBSNL=369) Ur Barbiturates Screen (BRWRHV=554) Valproic Acid (50.0-100.0) ug/mL Ur Tricyclics Screen (CIRZWW=868) Ur Phencyclidine Scrn (CUTOFF=25) Ur Amphetamine Screen (QUKJUS=579) U Methamphetamines Scrn (DFEGZU=684) U Benzodiazepines Scrn (JHGOMX=596) U Cocaine Metab Screen (GPXYGY=974) U Marijuana (THC) Screen (CUTOFF=50) Meds: Medications Generic Name Dose Route Start Last Admin Trade Name Freq PRN Reason Stop Dose Admin Dextrose/Sodium Chloride 1,000 mls @ 500 mls/hr 05/19/20 16:30 05/19/20 17:41 Dextrose 5%-Normal Saline IV 999 mls/hr ASDIRECTED JODI Infusion Potassium Chloride 10 meq/ 100 mls @ 100 mls/hr 05/19/20 17:30 05/19/20 17:35 Premix IV 05/19/20 23:29 100 mls/hr Q1H JODI Administration Magnesium Sulfate/Dextrose 1 100 mls @ 100 mls/hr 05/19/20 17:30 05/19/20 17:35 gm/ Premix IV 05/19/20 21:29 100 mls/hr Q1H JODI Administration Discontinued Medications Generic Name Dose Route Start Last Admin Trade Name Nick PRN Reason Stop Dose Admin Acetaminophen 650 mg 05/19/20 17:45 05/19/20 17:48 Tylenol PO 05/19/20 17:46 650 mg NOW STA Administration - Radiology Interpretation Free Text/Narrative:: 60-year-old female presents to the ED complaining that her blood sugar is too low. She has not taking insulin or oral antidiabetic agents. She indicates that since she had gastric bypass surgery in 2007 she will get dumping syndrome intermittently and will cause her blood sugar to go as low as 34 in the past. She states her sugar at home was 73 which precipitated her to come to the ED. She complains of generalized fatigue and weakness over the last 3 to 4 days. She reports recently started on Lasix daily she does not know the dosage to help with dependent edema. She indicates that she does have a relatively poor appetite. She states her weight is stable however. She smokes a pack and half of cigarettes daily. She is on a multitude of psychiatric medications would suggest that she most likely has bipolar affective disorder with psychotic tendencies. No records to prove this however. She states she does have depression and chronic insomnia. At present she states she feels very cold and is covered up with extra blankets. Plan was she will have routine labs performed. Her bedside blood sugar was 93. I will hang D5 normal saline and run at 500 mils per hour for now as she appears to be mildly volume depleted. - Re-Assessments/Exams Free Text/Narrative Re-Assessment/Exam: 05/19/20 17:33 Hematology reveals a low white count at 3.54. The differential is 45% neutrophils and 40% for sites i.e. mild right shift. She is anemic with a hemoglobin of 10.8 and a hematocrit of 33.1. MCV is normal at 83.6. Platelet count is 233,000. Chemistry reveals a sodium of 124 very low. Potassium also very low at 2.6. Chloride low at 86. Bicarb is 29. Anion gap is 11.6. BUN is 13 with a creatinine of 1.0. Estimated GFR is 57. Glucose is low at 66 in the lab. Hemoglobin A1c is 5.3. Calcium is 8.8 magnesium slightly low at 1.7. Liver function is normal. Troponin I is less than 0.017. C-reactive protein is 0.3. BNP is elevated at 422. Total protein is 7.8 with an albumin fraction of 3.9. Urinalysis shows trace of occult blood and 5-10 RBCs per high-power field and moderate bacteria. Urine culture will be ordered. Andrés she will have K riders ordered 10 mEq x 6 --1 every hour. Magnesium 1 g intravenously. Sugars will have to be checked routinely. Her blood pressure improved after I we got her to lie on her back as it had dropped to as low as 76 systolic. It went up to 91/52. You will need to stay in the hospital for electrolyte correction. Discussed the case with Dr. Mckenzie on-call hospitalis 05/19/20 18:38 lactic acid has returned elevated at 2.3. If the reflex rechecked in 3 to 4 hours time. She is currently receiving D5 normal saline at 250 mils per hour after receiving an initial liter bolus. She does not appear to be septic although she is hypotensive. She is afebrile. The portable chest x-ray will be ordered at this time. Blood pressure remains 81/48 at this time. Mean arterial pressure is 59. A liter of IV fluids will be D5 normal saline at open as well. Pressure does respond to second liter of crystalloid she will require vasopressors. Mild congestive heart failure with a BNP of 492. SH is 3.535 which is upper limits of normal . Suggest repeat TSH in 6 months time. Valproic acid level is therapeutic at 0.58. Urine drug screen is positive only for marijuana. 05/19/20 18:48 I have spoken with Dr. Mckenzie. We both agree that the patient will need to be admitted to the intensive care unit due to her persistent low blood pressure and her slightly elevated lactic acid. Repeat lactic acid is to be done at 2130 hrs. tonight. In the meantime we will continue crystalloids. I suspect her elevated lactic acid is due to malnutrition and not due to sepsis. Departure - Departure Time of Disposition: 18:49 Disposition: Admitted As Inpatient 68 Condition: Fair Clinical Impression: Generalized muscle weakness, Hypokalemia due to inadequate potassium intake, Hyponatremia with decreased serum osmolality, Hypomagnesemia, Low blood pressure reading, Lactic acidosis Bipolar affective disorder Qualifiers: Active/Remission status: in remission of unspecified degree Qualified Code(s): F31.70 - Bipolar disorder, currently in remission, most recent episode unspecified Leukopenia Qualifiers: Leukopenia type: unspecified Qualified Code(s): D72.819 - Decreased white blood cell count, unspecified Anemia Qualifiers: Anemia type: unspecified type Qualified Code(s): D64.9 - Anemia, unspecified - Discharge Information *PRESCRIPTION DRUG MONITORING PROGRAM REVIEWED*: Not Applicable *COPY OF PRESCRIPTION DRUG MONITORING REPORT IN PATIENT ROSA: Not Applicable Referrals: Clifford Werner MD [Primary Care Provider] - Forms: ED Department Discharge Sepsis Event Note (ED) - Focused Exam Vital Signs: Vital Signs Temp Pulse Resp Pulse Ox 05/19/20 16:13 36.1 C 65 16 98 - My Orders Last 24 Hours: My Active Orders 05/19/20 16:30 Dextrose 5%-0.9% NaCl [Dextrose 5%-Normal Saline] 1,000 ml IV ASDIRECTED 05/19/20 17:30 Magnesium Sulfate/D5W [Magnesium Sulfate in D5W 100 Premix] 1 gm Premix Bag 1 bag IV Q1H Potassium Chloride [KCl 10 MEQ in Water 100 ML] 10 meq Premix Bag 1 bag IV Q1H 05/19/20 17:39 EKG Documentation Completion [RC] STAT 05/19/20 17:48 OSMOLALITY,SERUM [CHEM] Stat 05/19/20 17:50 LACTIC ACID [CHEM] Stat 05/19/20 17:59 CULTURE URINE [RM] Routine 05/19/20 18:09 VITAMIN B12 [CHEM] Stat - Assessment/Plan Last 24 Hours: My Active Orders 05/19/20 16:30 Dextrose 5%-0.9% NaCl [Dextrose 5%-Normal Saline] 1,000 ml IV ASDIRECTED 05/19/20 17:30 Magnesium Sulfate/D5W [Magnesium Sulfate in D5W 100 Premix] 1 gm Premix Bag 1 bag IV Q1H Potassium Chloride [KCl 10 MEQ in Water 100 ML] 10 meq Premix Bag 1 bag IV Q1H 05/19/20 17:39 EKG Documentation Completion [RC] STAT 05/19/20 17:48 OSMOLALITY,SERUM [CHEM] Stat 05/19/20 17:50 LACTIC ACID [CHEM] Stat 05/19/20 17:59 CULTURE URINE [RM] Routine 05/19/20 18:09 VITAMIN B12 [CHEM] Stat
[2020-05-19 16:53] LABS: HEMOGLOBIN A1C 5.3 % (4.50-6.20)
[2020-05-19] MEDS: Potassium Chloride 10 MEQ in Premix Bag 1 BAG IV SCH ×5 (17:35→23:16)
[2020-05-19] MEDS ORDERED: Acetaminophen 325 MG Tab PO STA (17:45)
[2020-05-19] MEDS: Dextrose 5%-0.9% NaCl 1,000 ML IV SCH ×2 (18:34→21:45)
--- NOTE | 2020-05-19 18:50 | PCM.HP.2 ---
H&P History of Present Illness - General Date of Service: 05/19/20 Admit Problem/Dx: Hypoglycemia Source of Information: Patient, Old Records, Provider, RN Notes Reviewed - History of Present Illness Initial Comments - Free Text/Narative: This is a 60 yo with past medical hx/o Impaired Vision, AR, HTN, Hx/o Blood Clots/PE, GERD, PUD, Hx/o Peritonitis, Gastric Ulcer, Recurrent UTI, OA, Migraines, Seizure Disorder, Substance Abuse, DM2, Post-gastric bypass hypoglycemia, Gastric surgery in 2007 with resulted dumping syndrome, Anemia, RILEY, 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 She used to be diabetic but resolved with gastric by pass. She is no longer on medications for it. However she suffers intermittent diarrhea and or constipation from time to time due to dumping syndrome. She states that she suffers chronic low blood sugar. She has been as low as in the 30s in the past. Along with her low sugar, she has had issues with e-lytes abnormalities in the past as well. Patient denies any changes on her home routine regimen. She denies having fevers or chills. No signs of upper respiratory symptoms. Her initial work up shows a CBC remarkable for WBC of 3.54, RBC of 3.96, Hgb of 10.8, and Hct of 33.1. Her chemistry is significant for Na of 124, K of 2.6, Cl of 86, BS of 66, Serum Osm of 259, LA of 2.3, Mg of 1.7 and proBNP of 422. Her Albumin, Troponin, Vit B12 and TSH are all within normal limits. Her UA is negative fo UTI. Her UDS is positive for THC. Patient received initial treatment in ED before she was sent to the unit for further management. - Related Data Allergies/Adverse Reactions: Allergies Allergy/AdvReac Type Severity Reaction Status Date / Time cephalexin Allergy Hives Verified 05/19/20 22:31 morphine Allergy Itching Verified 05/19/20 22:31 venlafaxine [From Effexor] Allergy Cannot Verified 05/19/20 22:31 Remember lisinopril AdvReac Muscle Verified 05/19/20 22:31 Aches Home Medications: Home Meds Gabapentin [Neurontin] 600 mg PO TID 06/22/19 [History] cloNIDine [Catapres] 0.1 mg PO BEDTIME PRN 06/22/19 [History] Chlorthalidone 25 mg PO DAILY 01/27/20 [History] Divalproex Sodium [Depakote] 500 mg PO BID 01/27/20 [History] clonazePAM [Clonazepam] 1 mg PO TID 02/29/20 [History] ARIPiprazole [Abilify] 2 mg PO DAILY #30 tablet 03/02/20 [Rx] Losartan [Cozaar] 100 mg PO BEDTIME #0 03/02/20 [Rx] Sertraline [Zoloft] 100 mg PO DAILY #30 tablet 03/02/20 [Rx] traZODone HCl [Trazodone HCl] 100 mg PO BEDTIME #30 tablet 03/02/20 [Rx] SUMAtriptan [Imitrex] 100 mg PO ASDIRECTED PRN #10 tablet MDD 200 03/17/20 [Rx] Past Medical History HEENT History: Reports: Allergic Rhinitis, Impaired Vision Other HEENT History: wears glasses, dentures Cardiovascular History: Reports: Blood Clots/VTE/DVT, Hypertension Respiratory History: Reports: PE Gastrointestinal History: Reports: GERD, PUD, Other (See Below) (SBO) Other Gastrointestinal History: Peritonitis, gastric ulcer Genitourinary History: Reports: UTI, Recurrent ATG [employer] DEV[employer] History: Reports: Other OB/BYN History: hysterectomy Musculoskeletal History: Reports: Osteoarthritis Neurological History: Reports: Migraines, Seizure Other Neuro History: Patient reports last seizure within the last year, about 8 months ago. Psychiatric History: Reports: Addiction (oxycodone), Anxiety, Bipolar (History would suggest bipolar affective disorder with occasional psychotic breaks.), Depression, Psych Hospitalization(s) Other Psychiatric History: Oxycodone Addiction until January of 2020 Endocrine/Metabolic History: Reports: Diabetes, Type II (resolved after gastric bypass), Other (See Below) (Postgastric bypass hypoglycemia) Other Endocrine/Metabolic History: Diabtetes type II prior to gastric procedure. 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 Currently she weighs around 165. She has intermittent dumping syndrome but will get constipated once in a while as well. He was diabetic taking oral medications when she had her gastric bypass surgery.), Cholecystectomy (around 2008), Hernia, Abdominal, Lysis of Adhesions (x 4) Female Surgical History: Reports: Hysterectomy (complete), Tubal Ligation Musculoskeletal Surgical History: Reports: Shoulder Surgery (left, arthroscopic x 1, open x 1) Social & Family History - Family History Family Medical History: Noncontributory - Tobacco Use Smoking Status *Q: Current Every Day Smoker Years of Tobacco use: 30 Packs/Tins Daily: 1.5 - Caffeine Use Caffeine Use: Reports: Coffee Caffeine Use Comment: unknown - Recreational Drug Use Recreational Drug Use: No - Living Situation & Occupation Living situation: Reports: (01/16/2020), with Family (Daughter + her 2 kids) Occupation: Disabled H&P Review of Systems - Review of Systems: Review Of Systems: See Below General: Reports: Malaise, Weakness, Fatigue, Decreased Appetite. Denies: Feve r, Chills HEENT: Reports: No Symptoms Pulmonary: Reports: Shortness of Breath, Wheezing, Cough, Sputum. Denies: Pleuritic Chest Pain Cardiovascular: Reports: Dyspnea on Exertion, Blood Pressure Problem. Denies: Chest Pain, Palpitations, Lightheadedness Gastrointestinal: Reports: Constipation, Diarrhea, Nausea, Vomiting. Denies: Abdominal Pain Genitourinary: Reports: Incontinence Musculoskeletal: Reports: Back Pain, Joint Pain Skin: Reports: No Symptoms Psychiatric: Reports: Depression. Denies: Anxiety, Agitation, Hallucinations, Suicidal Ideation, Homicidal Ideation, Hallucinations (Auditory), Hallucinations (Visual) Neurological: Reports: Confusion, Dizziness, Headache, Weakness. Denies: Seizure, Syncope, Trouble Speaking, Difficulty Walking, Change in Speech, Gait Disturbance Hematologic/Lymphatic: Reports: No Symptoms Immunologic: Reports: No Symptoms Exam - Exam Exam: See Below - Vital Signs Vital Signs: Last Vital Signs Temp 36.1 C 05/19/20 16:13 Pulse 65 05/19/20 16:13 Resp 16 05/19/20 16:13 BP Pulse Ox 98 05/19/20 16:13 Orthostatic Blood Pressure [ 82/52 Standing] Orthostatic Blood Pressure [ 89/60 Supine] Weight: 76.657 kg - Exam General: Alert, Oriented, Cooperative HEENT: Conjunctiva Clear, EACs Clear, EOMI, Hearing Intact, Mucosa Moist & Brenas, Nares Patent, Normal Nasal Septum, Posterior Pharynx Clear, Pupils Equal Neck: Supple, Trachea Midline Lungs: Normal Respiratory Effort, Decreased Breath Sounds, Wheezing Cardiovascular: Regular Rate, Regular Rhythm GI/Abdominal Exam: Normal Bowel Sounds, Soft, Non-Tender, No Organomegaly, No Distention, No Abnormal Bruit, No Mass (Female) Exam: Deferred Rectal (Female) Exam: Deferred Back Exam: Normal Inspection, Full Range of Motion Extremities: Normal Inspection, Normal Range of Motion, Non-Tender, No Pedal Edema, Normal Capillary Refill Peripheral Pulses: 2+: Dorsalis Pedis (L), Dorsalis Pedis (R) Skin: Warm, Dry, Intact Neuro Extensive - Mental Status: Oriented x3, Normal Cognition, Memory Intact Neuro Extensive - Motor, Sensory, Reflexes: CN II-XII Intact, Normal Gait DTR: 2+: Achilles (L), Achilles (R) Psychiatric: Alert, Normal Affect, Normal Mood - Patient Data Lab Results Last 24 hrs: Laboratory Results - last 24 hr 05/19/20 05/19/20 05/19/20 Range/Units 16:13 16:15 16:15 WBC 3.54 L (3.98-10.04) K/mm3 RBC 3.96 L (3.98-5.22) M/mm3 Hgb 10.8 L (11.2-15.7) gm/dl Hct 33.1 L (34.1-44.9) % MCV 83.6 D (79.4-94.8) fl MCH 27.3 (25.6-32.2) pg MCHC 32.6 (32.2-35.5) g/dl RDW Std Deviation 53.7 H (36.4-46.3) fL Plt Count 233 (182-369) K/mm3 MPV 9.4 (9.4-12.3) fl Neut % (Auto) 45.0 (34.0-71.1) % Lymph % (Auto) 40.1 (19.3-51.7) % Swain % (Auto) 11.0 (4.7-12.5) % Eos % (Auto) 2.8 (0.7-5.8) Baso % (Auto) 1.1 (0.1-1.2) % Neut # (Auto) 1.59 (1.56-6.13) K/mm3 Lymph # (Auto) 1.42 (1.18-3.74) K/mm3 Swain # (Auto) 0.39 H (0.24-0.36) K/mm3 Eos # (Auto) 0.10 (0.04-0.36) K/mm3 Baso # (Auto) 0.04 (0.01-0.08) K/mm3 Sodium 124 L (136-145) mEq/L Potassium 2.6 L (3.5-5.1) mEq/L Chloride 86 L (98-107) mEq/L Carbon Dioxide 29 (21-32) mEq/L Anion Gap 11.6 (5-15) BUN 13 (7-18) mg/dL Creatinine 1.0 (0.55-1.02) mg/dL Est Cr Clr Drug Dosing 59.63 mL/min Estimated GFR (MDRD) 57 (>60) mL/min BUN/Creatinine Ratio 13.0 L (14-18) Glucose 66 L (74-106) mg/dL POC Glucose 93 (70-105) mg/dL Hemoglobin A1c (4.50-6.20) % Serum Osmolality (280-300) mosm/kg Lactic Acid (0.4-2.0) mmol/L Calcium 8.8 (8.5-10.1) mg/dL Magnesium 1.7 L (1.8-2.4) mg/dl Total Bilirubin 0.4 (0.2-1.0) mg/dL AST 20 (15-37) U/L ALT 20 (14-59) U/L Alkaline Phosphatase 63 (46-116) U/L Troponin I < 0.017 (0.00-0.056) ng/mL C-Reactive Protein 0.3 (<1.0) mg/dL NT-Pro-B Natriuret Pep (0-125) pg/mL Total Protein 7.8 (6.4-8.2) g/dl Albumin 3.9 (3.4-5.0) g/dl Globulin 3.9 gm/dL Albumin/Globulin Ratio 1.0 (1-2) TSH 3rd Generation (0.358-3.74) uIU/mL Urine Color (Yellow) Urine Appearance (Clear) Urine pH (5.0-8.0) Ur Specific Adams (1.005-1.030) Urine Protein (Negative) Urine Glucose (UA) (Negative) Urine Ketones (Negative) Urine Occult Blood (Negative) Urine Nitrite (Negative) Urine Bilirubin (Negative) Urine Urobilinogen (0.2-1.0) Ur Leukocyte Esterase (Negative) Urine RBC (0-5) /hpf Urine WBC (0-5) /hpf Ur Squamous Epith Cells (0-5) /hpf Urine Bacteria (FEW) /hpf Urine Mucus (FEW) /hpf Urine Opiates Screen (TQZMSD=793) Ur Buprenorphine Scrn (CUTOFF=10) Ur Oxycodone Screen (GBC3HM=635) Urine Methadone Screen (PIVXJM=972) Ur Propoxyphene Screen (WDPOZY=328) Ur Barbiturates Screen (KCFILZ=390) Valproic Acid (50.0-100.0) ug/mL Ur Tricyclics Screen (DPOIOL=863) Ur Phencyclidine Scrn (CUTOFF=25) Ur Amphetamine Screen (VVJCWN=136) U Methamphetamines Scrn (PIYFJX=809) U Benzodiazepines Scrn (VQJJPB=372) U Cocaine Metab Screen (TAHKGU=863) U Marijuana (THC) Screen (CUTOFF=50) 05/19/20 05/19/20 05/19/20 Range/Units 16:15 16:15 16:15 WBC (3.98-10.04) K/mm3 RBC (3.98-5.22) M/mm3 Hgb (11.2-15.7) gm/dl Hct (34.1-44.9) % MCV (79.4-94.8) fl MCH (25.6-32.2) pg MCHC (32.2-35.5) g/dl RDW Std Deviation (36.4-46.3) fL Plt Count (182-369) K/mm3 MPV (9.4-12.3) fl Neut % (Auto) (34.0-71.1) % Lymph % (Auto) (19.3-51.7) % Swain % (Auto) (4.7-12.5) % Eos % (Auto) (0.7-5.8) Baso % (Auto) (0.1-1.2) % Neut # (Auto) (1.56-6.13) K/mm3 Lymph # (Auto) (1.18-3.74) K/mm3 Swain # (Auto) (0.24-0.36) K/mm3 Eos # (Auto) (0.04-0.36) K/mm3 Baso # (Auto) (0.01-0.08) K/mm3 Sodium (136-145) mEq/L Potassium (3.5-5.1) mEq/L Chloride (98-107) mEq/L Carbon Dioxide (21-32) mEq/L Anion Gap (5-15) BUN (7-18) mg/dL Creatinine (0.55-1.02) mg/dL Est Cr Clr Drug Dosing mL/min Estimated GFR (MDRD) (>60) mL/min BUN/Creatinine Ratio (14-18) Glucose (74-106) mg/dL POC Glucose (70-105) mg/dL Hemoglobin A1c 5.30 (4.50-6.20) % Serum Osmolality (280-300) mosm/kg Lactic Acid (0.4-2.0) mmol/L Calcium (8.5-10.1) mg/dL Magnesium (1.8-2.4) mg/dl Total Bilirubin (0.2-1.0) mg/dL AST (15-37) U/L ALT (14-59) U/L Alkaline Phosphatase (46-116) U/L Troponin I (0.00-0.056) ng/mL C-Reactive Protein (<1.0) mg/dL NT-Pro-B Natriuret Pep 422 H (0-125) pg/mL Total Protein (6.4-8.2) g/dl Albumin (3.4-5.0) g/dl Globulin gm/dL Albumin/Globulin Ratio (1-2) TSH 3rd Generation 3.535 (0.358-3.74) uIU/mL Urine Color (Yellow) Urine Appearance (Clear) Urine pH (5.0-8.0) Ur Specific Adams (1.005-1.030) Urine Protein (Negative) Urine Glucose (UA) (Negative) Urine Ketones (Negative) Urine Occult Blood (Negative) Urine Nitrite (Negative) Urine Bilirubin (Negative) Urine Urobilinogen (0.2-1.0) Ur Leukocyte Esterase (Negative) Urine RBC (0-5) /hpf Urine WBC (0-5) /hpf Ur Squamous Epith Cells (0-5) /hpf Urine Bacteria (FEW) /hpf Urine Mucus (FEW) /hpf Urine Opiates Screen (EXXEFX=534) Ur Buprenorphine Scrn (CUTOFF=10) Ur Oxycodone Screen (LTE1QS=295) Urine Methadone Screen (EACWKB=977) Ur Propoxyphene Screen (TLHNWM=004) Ur Barbiturates Screen (ESQJRS=687) Valproic Acid 58.2 (50.0-100.0) ug/mL Ur Tricyclics Screen (CEVIWS=092) Ur Phencyclidine Scrn (CUTOFF=25) Ur Amphetamine Screen (EKAFPC=937) U Methamphetamines Scrn (YOQMXS=458) U Benzodiazepines Scrn (XDFVAZ=805) U Cocaine Metab Screen (WBQKVT=922) U Marijuana (THC) Screen (CUTOFF=50) 05/19/20 05/19/20 05/19/20 Range/Units 16:15 16:33 16:33 WBC (3.98-10.04) K/mm3 RBC (3.98-5.22) M/mm3 Hgb (11.2-15.7) gm/dl Hct (34.1-44.9) % MCV (79.4-94.8) fl MCH (25.6-32.2) pg MCHC (32.2-35.5) g/dl RDW Std Deviation (36.4-46.3) fL Plt Count (182-369) K/mm3 MPV (9.4-12.3) fl Neut % (Auto) (34.0-71.1) % Lymph % (Auto) (19.3-51.7) % Swain % (Auto) (4.7-12.5) % Eos % (Auto) (0.7-5.8) Baso % (Auto) (0.1-1.2) % Neut # (Auto) (1.56-6.13) K/mm3 Lymph # (Auto) (1.18-3.74) K/mm3 Swain # (Auto) (0.24-0.36) K/mm3 Eos # (Auto) (0.04-0.36) K/mm3 Baso # (Auto) (0.01-0.08) K/mm3 Sodium (136-145) mEq/L Potassium (3.5-5.1) mEq/L Chloride (98-107) mEq/L Carbon Dioxide (21-32) mEq/L Anion Gap (5-15) BUN (7-18) mg/dL Creatinine (0.55-1.02) mg/dL Est Cr Clr Drug Dosing mL/min Estimated GFR (MDRD) (>60) mL/min BUN/Creatinine Ratio (14-18) Glucose (74-106) mg/dL POC Glucose (70-105) mg/dL Hemoglobin A1c (4.50-6.20) % Serum Osmolality 259 L (280-300) mosm/kg Lactic Acid (0.4-2.0) mmol/L Calcium (8.5-10.1) mg/dL Magnesium (1.8-2.4) mg/dl Total Bilirubin (0.2-1.0) mg/dL AST (15-37) U/L ALT (14-59) U/L Alkaline Phosphatase (46-116) U/L Troponin I (0.00-0.056) ng/mL C-Reactive Protein (<1.0) mg/dL NT-Pro-B Natriuret Pep (0-125) pg/mL Total Protein (6.4-8.2) g/dl Albumin (3.4-5.0) g/dl Globulin gm/dL Albumin/Globulin Ratio (1-2) TSH 3rd Generation (0.358-3.74) uIU/mL Urine Color Yellow (Yellow) Urine Appearance Clear (Clear) Urine pH 7.0 (5.0-8.0) Ur Specific Adams 1.015 (1.005-1.030) Urine Protein Negative (Negative) Urine Glucose (UA) Negative (Negative) Urine Ketones Negative (Negative) Urine Occult Blood Trace-intact H (Negative) Urine Nitrite Negative (Negative) Urine Bilirubin Negative (Negative) Urine Urobilinogen 0.2 (0.2-1.0) Ur Leukocyte Esterase Negative (Negative) Urine RBC 5-10 H (0-5) /hpf Urine WBC 0-5 (0-5) /hpf Ur Squamous Epith Cells 0-5 (0-5) /hpf Urine Bacteria Moderate H (FEW) /hpf Urine Mucus Few (FEW) /hpf Urine Opiates Screen Negative (CIUSMU=226) Ur Buprenorphine Scrn Negative (CUTOFF=10) Ur Oxycodone Screen Negative (IDO9SY=826) Urine Methadone Screen Negative (SBMKYE=746) Ur Propoxyphene Screen Negative (PWRFYP=919) Ur Barbiturates Screen Negative (EINNKK=658) Valproic Acid (50.0-100.0) ug/mL Ur Tricyclics Screen Negative (WCZDYO=897) Ur Phencyclidine Scrn Negative (CUTOFF=25) Ur Amphetamine Screen Negative (FGLAEB=581) U Methamphetamines Scrn Negative (CUXMDU=822) U Benzodiazepines Scrn Negative (JBNBVZ=680) U Cocaine Metab Screen Negative (LTWKER=001) U Marijuana (THC) Screen Presumptive positive H (CUTOFF=50) 05/19/20 05/19/20 Range/Units 17:50 18:13 WBC (3.98-10.04) K/mm3 RBC (3.98-5.22) M/mm3 Hgb (11.2-15.7) gm/dl Hct (34.1-44.9) % MCV (79.4-94.8) fl MCH (25.6-32.2) pg MCHC (32.2-35.5) g/dl RDW Std Deviation (36.4-46.3) fL Plt Count (182-369) K/mm3 MPV (9.4-12.3) fl Neut % (Auto) (34.0-71.1) % Lymph % (Auto) (19.3-51.7) % Swain % (Auto) (4.7-12.5) % Eos % (Auto) (0.7-5.8) Baso % (Auto) (0.1-1.2) % Neut # (Auto) (1.56-6.13) K/mm3 Lymph # (Auto) (1.18-3.74) K/mm3 Swain # (Auto) (0.24-0.36) K/mm3 Eos # (Auto) (0.04-0.36) K/mm3 Baso # (Auto) (0.01-0.08) K/mm3 Sodium (136-145) mEq/L Potassium (3.5-5.1) mEq/L Chloride (98-107) mEq/L Carbon Dioxide (21-32) mEq/L Anion Gap (5-15) BUN (7-18) mg/dL Creatinine (0.55-1.02) mg/dL Est Cr Clr Drug Dosing mL/min Estimated GFR (MDRD) (>60) mL/min BUN/Creatinine Ratio (14-18) Glucose (74-106) mg/dL POC Glucose 178 H (70-105) mg/dL Hemoglobin A1c (4.50-6.20) % Serum Osmolality (280-300) mosm/kg Lactic Acid 2.3 H* (0.4-2.0) mmol/L Calcium (8.5-10.1) mg/dL Magnesium (1.8-2.4) mg/dl Total Bilirubin (0.2-1.0) mg/dL AST (15-37) U/L ALT (14-59) U/L Alkaline Phosphatase (46-116) U/L Troponin I (0.00-0.056) ng/mL C-Reactive Protein (<1.0) mg/dL NT-Pro-B Natriuret Pep (0-125) pg/mL Total Protein (6.4-8.2) g/dl Albumin (3.4-5.0) g/dl Globulin gm/dL Albumin/Globulin Ratio (1-2) TSH 3rd Generation (0.358-3.74) uIU/mL Urine Color (Yellow) Urine Appearance (Clear) Urine pH (5.0-8.0) Ur Specific Adams (1.005-1.030) Urine Protein (Negative) Urine Glucose (UA) (Negative) Urine Ketones (Negative) Urine Occult Blood (Negative) Urine Nitrite (Negative) Urine Bilirubin (Negative) Urine Urobilinogen (0.2-1.0) Ur Leukocyte Esterase (Negative) Urine RBC (0-5) /hpf Urine WBC (0-5) /hpf Ur Squamous Epith Cells (0-5) /hpf Urine Bacteria (FEW) /hpf Urine Mucus (FEW) /hpf Urine Opiates Screen (QGVAWA=651) Ur Buprenorphine Scrn (CUTOFF=10) Ur Oxycodone Screen (JVD1BC=144) Urine Methadone Screen (KUQSLB=181) Ur Propoxyphene Screen (ERMCIK=321) Ur Barbiturates Screen (VDDTAM=667) Valproic Acid (50.0-100.0) ug/mL Ur Tricyclics Screen (PUNHTN=235) Ur Phencyclidine Scrn (CUTOFF=25) Ur Amphetamine Screen (YVVTOS=346) U Methamphetamines Scrn (FLMFBM=681) U Benzodiazepines Scrn (NKBPDQ=748) U Cocaine Metab Screen (AIMTWE=194) U Marijuana (THC) Screen (CUTOFF=50) Result Diagrams: 05/20/20 04:20 05/20/20 04:20 Sepsis Event Note - Evaluation Sepsis Screening Result: No Definite Risk - Focused Exam Vital Signs: Vital Signs Temp Pulse Resp Pulse Ox 05/19/20 16:13 36.1 C 65 16 98 Date Exam was Performed: 05/20/20 Time Exam was Performed: 19:19 Problem List Initiated/Reviewed/Updated: Yes Orders Last 24hrs: Active Orders 24 hr Category Date Time Status EKG Documentation Completion [RC] STAT Care 05/19/20 17:39 Active Chest 1V Frontal [CR] Stat Exams 05/19/20 18:34 Ordered CULTURE URINE [RM] Routine Lab 05/19/20 16:15 Received LACTIC ACID [CHEM] Stat Lab 05/19/20 21:30 Ordered VITAMIN B12 [CHEM] Stat Lab 05/19/20 18:09 Ordered Dextrose 5%-0.9% NaCl [Dextrose 5%-Normal Saline] 1,000 Med 05/19/20 16:30 Active ml IV ASDIRECTED Dextrose 5%-0.9% NaCl [Dextrose 5%-Normal Saline] 1,000 Med 05/19/20 18:30 Active ml IV ASDIRECTED Magnesium Sulfate/D5W [Magnesium Sulfate in D5W 100 Med 05/19/20 17:30 Active Premix] 1 gm Premix Bag 1 bag IV Q1H Potassium Chloride [KCl 10 MEQ in Water 100 ML] 10 meq Med 05/19/20 17:30 Active Premix Bag 1 bag IV Q1H Medication Orders Dextrose/Sodium Chloride (Dextrose 5%-Normal Saline) 1,000 mls @ 500 mls/hr IV ASDIRECTED JODI Last Infusion: 05/19/20 17:41 Dose: 999 mls/hr Documented by: Admin: 05/19/20 16:39 Dose: 500 mls/hr Documented by: KIRILL Potassium Chloride 10 meq/ (Premix) 100 mls @ 100 mls/hr IV Q1H [facility] Stop: 05/19/20 23:29 Last Admin: 05/19/20 18:40 Dose: 100 mls/hr Documented by: Infusion: 05/19/20 18:35 Dose: 100 mls/hr Documented by: Admin: 05/19/20 17:35 Dose: 100 mls/hr Documented by: KIRILL Magnesium Sulfate/Dextrose 1 (gm/ Premix) 100 mls @ 100 mls/hr IV Q1H [facility] Stop: 05/19/20 21:29 Last Admin: 05/19/20 18:40 Dose: 100 mls/hr Documented by: Infusion: 05/19/20 18:35 Dose: 100 mls/hr Documented by: Admin: 05/19/20 17:35 Dose: 100 mls/hr Documented by: KIRILL Dextrose/Sodium Chloride (Dextrose 5%-Normal Saline) 1,000 mls @ 250 mls/hr IV ASDIRECTED [facility] Last Infusion: 05/19/20 18:43 Dose: 999 mls/hr Documented by: Admin: 05/19/20 18:34 Dose: 250 mls/hr Documented by: KIRILL Assessment/Plan Comment:: Assessment: This is a 60 yo with past medical hx/o Impaired Vision, AR, HTN, Hx/o Blood Clots/PE, GERD, PUD, Hx/o Peritonitis, Gastric Ulcer, Recurrent UTI, OA, Migraines, Seizure Disorder, Substance Abuse, DM2, Post-gastric bypass hypoglycemia, Gastric surgery in 2007 with resulted dumping syndrome, Anemia, RILEY, 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 Acute: * SIRS: Mild Leukocytopenia, hypotensive, elevated lactic acids but no clear source. Pending for COVID -19 screening and UA. * Hypoglycemia. Acute on Chronic. Has had hx/o hypoglycemia as low as 37. She used to be diabetic but developed dumping syndrome post gastric by pass. She presented to ED with BS at low as 66. She has since improved to 170s after receiving 1L of D5W. Plan: We will continue D5W infusion. Goal Bs > at > 200. * Hypotension. He presents with a BP as low at 82/52 mmHg. Has received 1L of fluids so far. Continue with volume resuscitation. * Normocytic, Normochromic Anemia. She presents with a Hgb level of 10.8. Baseline is 8.3-11.9 grams. No report of active bleeding or melena. Will monitor. * Euvolemic Hypo-osmolar Hyponatremia. She presents with a Na of 129. She is on a lot of psych medications and also on chlorthalidone and zoloft which are known to lower sodium. * Hypokalemia. She presents with a K level of 2.6. This is likely 2/2 inadequate intake also diuresis with lasix. Will replete and monitor. * Hypochloremia. Cl of 86. Again, likely due to diuresis. Encourage to eat. * Lactic Acidosis. She has no signs of systemic infection. She is a little low on WBC but afebrile. This is likely due to starvation ketosis. She has received 1L of fluids in ED. Will repeat LA level. * Hypomagnesemia. She presents with a Mg level of 1.7. Will replete and monitor. * Nicotine dependence. Smokes half a pack a day. Counseled on smoking cessation. Nicotine patch daily. * Substance Abuse. UDS positive for THC. Counseled on non-medical marijuana use. Chronic: Impaired Vision, AR, HTN, Hx/o Blood Clots/PE, GERD, PUD, Hx/o Peritonitis, Gastric Ulcer, Recurrent UTI, OA, Migraines, Seizure Disorder, Substance Abuse, DM2, Post-gastric bypass hypoglycemia, Gastric surgery in 2007 with resulted dumping syndrome, Anemia, RILEY, AT3 Deficiency, Anxiety, Bipolar Disorder, Depression, and Hx/o Psych inpatient treatment Plan: Admit to ICU. Resume home medications once verified. Hold diuretic. D5W for hydration and hypoglycemia. Accu-check Q4H. Regular diet. A1C level. She can eat whatever to include complex carb. Will obtain chart from [facility]. DVT/GI prophylaxis. Code status is full. Critical Care time spent: 40 mins - Mortality Measure Prognosis:: Good
[2020-05-19] MEDS ORDERED: Polyethylene Glycol 3350 Powder 17 GM Packet PO PRN (19:04)
[2020-05-19] MEDS ORDERED: Albuterol/Ipratropium 3.0-0.5 MG/3 ML Neb Soln NEB PRN (19:04)
[2020-05-19] MEDS ORDERED: Promethazine 12.5 MG in Sodium Chloride 0.9% 50 ML IV PRN (19:04)
[2020-05-19] MEDS ORDERED: Bisacodyl 5 MG Tab PO PRN (19:04)
[2020-05-19] MEDS ORDERED: Zolpidem 5 MG Tab PO PRN (19:04)
[2020-05-19] MEDS ORDERED: Ondansetron 4 MG/2 ML SDV IV PRN (19:04)
[2020-05-19] MEDS ORDERED: Docusate Sodium 100 MG Cap PO PRN (19:04)
[2020-05-19] MEDS ORDERED: Sodium Chloride 0.9% 1,000 ML IV SCH (19:15)
[2020-05-19] MEDS ORDERED: 50% Dextrose in Water 50 ML Syringe IVPUSH PRN (19:40)
[2020-05-19] MEDS ORDERED: Midodrine 5 MG Tab PO PRN (20:08)
[2020-05-19] MEDS: Heparin Sodium 5,000 Units/ML Vial SUBCUT SCH (22:05)
[2020-05-19] MEDS: 50% Dextrose in Water 50 ML Syringe IVPUSH PRN (22:13)
[2020-05-19] MEDS ORDERED: Divalproex Sodium Delayed-Release 500 MG Tab.CR PO ONE (22:52)
[2020-05-19] MEDS ORDERED: traZODone 50 MG Tab PO ONE (22:52)
[2020-05-19] MEDS ORDERED: Sodium Chloride 0.9% 500 ML IV ONE ×2 (23:01→23:40)
[2020-05-19] MEDS ORDERED: ClonazePAM 1 MG Tab PO ONE (23:30)
[2020-05-19] MEDS ORDERED: Norepinephrine 4 MG in Dextrose 5% in Water 246 ML IV SCH ×2 (23:30)
[2020-05-20] MEDS: Potassium Chloride 10 MEQ in Premix Bag 1 BAG IV SCH (00:41)
[2020-05-20] MEDS ORDERED: traZODone 50 MG Tab PO ONE (01:45)
[2020-05-20] MEDS ORDERED: Divalproex Sodium Delayed-Release 500 MG Tab.CR PO ONE (01:45)
[2020-05-20] MEDS ORDERED: ClonazePAM 1 MG Tab PO ONE (01:45)
[2020-05-20] MEDS: Dextrose 5%-0.9% NaCl 1,000 ML IV SCH ×5 (02:08→23:01)
[2020-05-20] MEDS: Heparin Sodium 5,000 Units/ML Vial SUBCUT SCH ×3 (05:03→20:19)
--- NOTE | 2020-05-20 06:18 | PCM.PN ---
- General Info Date of Service: 05/20/20 Admission Dx/Problem (Free Text): Hypoglycemia Functional Status: Reports: Pain Controlled - Review of Systems General: Denies: Fever, Chills HEENT: Reports: No Symptoms Pulmonary: Denies: Shortness of Breath Cardiovascular: Denies: Chest Pain, Dyspnea on Exertion, Lightheadedness Gastrointestinal: Denies: Abdominal Pain, Nausea, Vomiting Genitourinary: Reports: No Symptoms Musculoskeletal: Reports: No Symptoms Skin: Reports: No Symptoms Neurological: Denies: Confusion, Gait Disturbance Psychiatric: Denies: Confusion, Mood Lability, Anxiety, Agitation - Patient Data Vitals - Most Recent: Last Vital Signs Temp 37.1 C 05/19/20 19:04 Pulse 59 L 05/20/20 05:41 Resp 18 05/19/20 19:04 BP 92/62 05/20/20 05:41 Pulse Ox 96 05/20/20 05:41 Orthostatic Blood Pressure [ 82/52 Standing] Orthostatic Blood Pressure [ 89/60 Supine] Weight - Most Recent: 79.832 kg I&O - Last 24 Hours: Intake & Output 05/19/20 05/19/20 05/20/20 14:59 22:59 06:59 Intake Total 2500 Output Total 2875 Balance -375 Lab Results Last 24 Hours: Laboratory Results - last 24 hr 05/19/20 05/19/20 05/19/20 Range/Units 16:13 16:15 16:15 WBC 3.54 L (3.98-10.04) K/mm3 RBC 3.96 L (3.98-5.22) M/mm3 Hgb 10.8 L (11.2-15.7) gm/dl Hct 33.1 L (34.1-44.9) % MCV 83.6 D (79.4-94.8) fl MCH 27.3 (25.6-32.2) pg MCHC 32.6 (32.2-35.5) g/dl RDW Std Deviation 53.7 H (36.4-46.3) fL Plt Count 233 (182-369) K/mm3 MPV 9.4 (9.4-12.3) fl Neut % (Auto) 45.0 (34.0-71.1) % Lymph % (Auto) 40.1 (19.3-51.7) % [place] % (Auto) 11.0 (4.7-12.5) % Eos % (Auto) 2.8 (0.7-5.8) Baso % (Auto) 1.1 (0.1-1.2) % Neut # (Auto) 1.59 (1.56-6.13) K/mm3 Lymph # (Auto) 1.42 (1.18-3.74) K/mm3 [place] # (Auto) 0.39 H (0.24-0.36) K/mm3 Eos # (Auto) 0.10 (0.04-0.36) K/mm3 Baso # (Auto) 0.04 (0.01-0.08) K/mm3 Manual Slide Review Sodium 124 L (136-145) mEq/L Potassium 2.6 L (3.5-5.1) mEq/L Chloride 86 L (98-107) mEq/L Carbon Dioxide 29 (21-32) mEq/L Anion Gap 11.6 (5-15) BUN 13 (7-18) mg/dL Creatinine 1.0 (0.55-1.02) mg/dL Est Cr Clr Drug Dosing 59.63 mL/min Estimated GFR (MDRD) 57 (>60) mL/min BUN/Creatinine Ratio 13.0 L (14-18) Glucose 66 L (74-106) mg/dL POC Glucose 93 (70-105) mg/dL Hemoglobin A1c (4.50-6.20) % Serum Osmolality (280-300) mosm/kg Lactic Acid (0.4-2.0) mmol/L Calcium 8.8 (8.5-10.1) mg/dL Magnesium 1.7 L (1.8-2.4) mg/dl Total Bilirubin 0.4 (0.2-1.0) mg/dL AST 20 (15-37) U/L ALT 20 (14-59) U/L Alkaline Phosphatase 63 (46-116) U/L Troponin I < 0.017 (0.00-0.056) ng/mL C-Reactive Protein 0.3 (<1.0) mg/dL NT-Pro-B Natriuret Pep (0-125) pg/mL Total Protein 7.8 (6.4-8.2) g/dl Albumin 3.9 (3.4-5.0) g/dl Globulin 3.9 gm/dL Albumin/Globulin Ratio 1.0 (1-2) Vitamin B12 (193-986) pg/ml TSH 3rd Generation (0.358-3.74) uIU/mL Urine Color (Yellow) Urine Appearance (Clear) Urine pH (5.0-8.0) Ur Specific [place] (1.005-1.030) Urine Protein (Negative) Urine Glucose (UA) (Negative) Urine Ketones (Negative) Urine Occult Blood (Negative) Urine Nitrite (Negative) Urine Bilirubin (Negative) Urine Urobilinogen (0.2-1.0) Ur Leukocyte Esterase (Negative) Urine RBC (0-5) /hpf Urine WBC (0-5) /hpf Ur Squamous Epith Cells (0-5) /hpf Urine Bacteria (FEW) /hpf Urine Mucus (FEW) /hpf Urine Opiates Screen (GPICRR=642) Ur Buprenorphine Scrn (CUTOFF=10) Ur Oxycodone Screen (VDD8AZ=770) Urine Methadone Screen (RUJKGN=989) Ur Propoxyphene Screen (YLBXEB=782) Ur Barbiturates Screen (QTRXPL=961) Valproic Acid (50.0-100.0) ug/mL Ur Tricyclics Screen (CGZEGQ=322) Ur Phencyclidine Scrn (CUTOFF=25) Ur Amphetamine Screen (FKRHPT=129) U Methamphetamines Scrn (TRFSHC=173) U Benzodiazepines Scrn (MBAMFQ=763) U Cocaine Metab Screen (DNQUZM=534) U Marijuana (THC) Screen (CUTOFF=50) SARS Virus RNA (PCR) (NEGATIVE) 05/19/20 05/19/20 05/19/20 Range/Units 16:15 16:15 16:15 WBC (3.98-10.04) K/mm3 RBC (3.98-5.22) M/mm3 Hgb (11.2-15.7) gm/dl Hct (34.1-44.9) % MCV (79.4-94.8) fl MCH (25.6-32.2) pg MCHC (32.2-35.5) g/dl RDW Std Deviation (36.4-46.3) fL Plt Count (182-369) K/mm3 MPV (9.4-12.3) fl Neut % (Auto) (34.0-71.1) % Lymph % (Auto) (19.3-51.7) % [place] % (Auto) (4.7-12.5) % Eos % (Auto) (0.7-5.8) Baso % (Auto) (0.1-1.2) % Neut # (Auto) (1.56-6.13) K/mm3 Lymph # (Auto) (1.18-3.74) K/mm3 [place] # (Auto) (0.24-0.36) K/mm3 Eos # (Auto) (0.04-0.36) K/mm3 Baso # (Auto) (0.01-0.08) K/mm3 Manual Slide Review Sodium (136-145) mEq/L Potassium (3.5-5.1) mEq/L Chloride (98-107) mEq/L Carbon Dioxide (21-32) mEq/L Anion Gap (5-15) BUN (7-18) mg/dL Creatinine (0.55-1.02) mg/dL Est Cr Clr Drug Dosing mL/min Estimated GFR (MDRD) (>60) mL/min BUN/Creatinine Ratio (14-18) Glucose (74-106) mg/dL POC Glucose (70-105) mg/dL Hemoglobin A1c 5.30 (4.50-6.20) % Serum Osmolality (280-300) mosm/kg Lactic Acid (0.4-2.0) mmol/L Calcium (8.5-10.1) mg/dL Magnesium (1.8-2.4) mg/dl Total Bilirubin (0.2-1.0) mg/dL AST (15-37) U/L ALT (14-59) U/L Alkaline Phosphatase (46-116) U/L Troponin I (0.00-0.056) ng/mL C-Reactive Protein (<1.0) mg/dL NT-Pro-B Natriuret Pep 422 H (0-125) pg/mL Total Protein (6.4-8.2) g/dl Albumin (3.4-5.0) g/dl Globulin gm/dL Albumin/Globulin Ratio (1-2) Vitamin B12 (193-986) pg/ml TSH 3rd Generation 3.535 (0.358-3.74) uIU/mL Urine Color (Yellow) Urine Appearance (Clear) Urine pH (5.0-8.0) Ur Specific [place] (1.005-1.030) Urine Protein (Negative) Urine Glucose (UA) (Negative) Urine Ketones (Negative) Urine Occult Blood (Negative) Urine Nitrite (Negative) Urine Bilirubin (Negative) Urine Urobilinogen (0.2-1.0) Ur Leukocyte Esterase (Negative) Urine RBC (0-5) /hpf Urine WBC (0-5) /hpf Ur Squamous Epith Cells (0-5) /hpf Urine Bacteria (FEW) /hpf Urine Mucus (FEW) /hpf Urine Opiates Screen (GMGUTX=400) Ur Buprenorphine Scrn (CUTOFF=10) Ur Oxycodone Screen (FYE4ZG=200) Urine Methadone Screen (CCQNAU=046) Ur Propoxyphene Screen (PCNYRN=377) Ur Barbiturates Screen (YSWAUK=400) Valproic Acid 58.2 (50.0-100.0) ug/mL Ur Tricyclics Screen (MBRUFI=851) Ur Phencyclidine Scrn (CUTOFF=25) Ur Amphetamine Screen (GRXZQR=614) U Methamphetamines Scrn (TDUGUO=033) U Benzodiazepines Scrn (AYYNJL=746) U Cocaine Metab Screen (IZGPIH=613) U Marijuana (THC) Screen (CUTOFF=50) SARS Virus RNA (PCR) (NEGATIVE) 05/19/20 05/19/20 05/19/20 Range/Units 16:15 16:15 16:33 WBC (3.98-10.04) K/mm3 RBC (3.98-5.22) M/mm3 Hgb (11.2-15.7) gm/dl Hct (34.1-44.9) % MCV (79.4-94.8) fl MCH (25.6-32.2) pg MCHC (32.2-35.5) g/dl RDW Std Deviation (36.4-46.3) fL Plt Count (182-369) K/mm3 MPV (9.4-12.3) fl Neut % (Auto) (34.0-71.1) % Lymph % (Auto) (19.3-51.7) % [place] % (Auto) (4.7-12.5) % Eos % (Auto) (0.7-5.8) Baso % (Auto) (0.1-1.2) % Neut # (Auto) (1.56-6.13) K/mm3 Lymph # (Auto) (1.18-3.74) K/mm3 [place] # (Auto) (0.24-0.36) K/mm3 Eos # (Auto) (0.04-0.36) K/mm3 Baso # (Auto) (0.01-0.08) K/mm3 Manual Slide Review Sodium (136-145) mEq/L Potassium (3.5-5.1) mEq/L Chloride (98-107) mEq/L Carbon Dioxide (21-32) mEq/L Anion Gap (5-15) BUN (7-18) mg/dL Creatinine (0.55-1.02) mg/dL Est Cr Clr Drug Dosing mL/min Estimated GFR (MDRD) (>60) mL/min BUN/Creatinine Ratio (14-18) Glucose (74-106) mg/dL POC Glucose (70-105) mg/dL Hemoglobin A1c (4.50-6.20) % Serum Osmolality 259 L (280-300) mosm/kg Lactic Acid (0.4-2.0) mmol/L Calcium (8.5-10.1) mg/dL Magnesium (1.8-2.4) mg/dl Total Bilirubin (0.2-1.0) mg/dL AST (15-37) U/L ALT (14-59) U/L Alkaline Phosphatase (46-116) U/L Troponin I (0.00-0.056) ng/mL C-Reactive Protein (<1.0) mg/dL NT-Pro-B Natriuret Pep (0-125) pg/mL Total Protein (6.4-8.2) g/dl Albumin (3.4-5.0) g/dl Globulin gm/dL Albumin/Globulin Ratio (1-2) Vitamin B12 848 (193-986) pg/ml TSH 3rd Generation (0.358-3.74) uIU/mL Urine Color (Yellow) Urine Appearance (Clear) Urine pH (5.0-8.0) Ur Specific [place] (1.005-1.030) Urine Protein (Negative) Urine Glucose (UA) (Negative) Urine Ketones (Negative) Urine Occult Blood (Negative) Urine Nitrite (Negative) Urine Bilirubin (Negative) Urine Urobilinogen (0.2-1.0) Ur Leukocyte Esterase (Negative) Urine RBC (0-5) /hpf Urine WBC (0-5) /hpf Ur Squamous Epith Cells (0-5) /hpf Urine Bacteria (FEW) /hpf Urine Mucus (FEW) /hpf Urine Opiates Screen Negative (KFNZGM=005) Ur Buprenorphine Scrn Negative (CUTOFF=10) Ur Oxycodone Screen Negative (GLQ6GT=716) Urine Methadone Screen Negative (FDGUZL=521) Ur Propoxyphene Screen Negative (PIPAZV=577) Ur Barbiturates Screen Negative (YDEXDJ=086) Valproic Acid (50.0-100.0) ug/mL Ur Tricyclics Screen Negative (QWTRBS=395) Ur Phencyclidine Scrn Negative (CUTOFF=25) Ur Amphetamine Screen Negative (IFWTGY=532) U Methamphetamines Scrn Negative (EREBTN=503) U Benzodiazepines Scrn Negative (WQHFVN=929) U Cocaine Metab Screen Negative (VGXVDO=910) U Marijuana (THC) Screen Presumptive positive H (CUTOFF=50) SARS Virus RNA (PCR) (NEGATIVE) 05/19/20 05/19/20 05/19/20 Range/Units 16:33 17:50 18:13 WBC (3.98-10.04) K/mm3 RBC (3.98-5.22) M/mm3 Hgb (11.2-15.7) gm/dl Hct (34.1-44.9) % MCV (79.4-94.8) fl MCH (25.6-32.2) pg MCHC (32.2-35.5) g/dl RDW Std Deviation (36.4-46.3) fL Plt Count (182-369) K/mm3 MPV (9.4-12.3) fl Neut % (Auto) (34.0-71.1) % Lymph % (Auto) (19.3-51.7) % [place] % (Auto) (4.7-12.5) % Eos % (Auto) (0.7-5.8) Baso % (Auto) (0.1-1.2) % Neut # (Auto) (1.56-6.13) K/mm3 Lymph # (Auto) (1.18-3.74) K/mm3 [place] # (Auto) (0.24-0.36) K/mm3 Eos # (Auto) (0.04-0.36) K/mm3 Baso # (Auto) (0.01-0.08) K/mm3 Manual Slide Review Sodium (136-145) mEq/L Potassium (3.5-5.1) mEq/L Chloride (98-107) mEq/L Carbon Dioxide (21-32) mEq/L Anion Gap (5-15) BUN (7-18) mg/dL Creatinine (0.55-1.02) mg/dL Est Cr Clr Drug Dosing mL/min Estimated GFR (MDRD) (>60) mL/min BUN/Creatinine Ratio (14-18) Glucose (74-106) mg/dL POC Glucose 178 H (70-105) mg/dL Hemoglobin A1c (4.50-6.20) % Serum Osmolality (280-300) mosm/kg Lactic Acid 2.3 H* (0.4-2.0) mmol/L Calcium (8.5-10.1) mg/dL Magnesium (1.8-2.4) mg/dl Total Bilirubin (0.2-1.0) mg/dL AST (15-37) U/L ALT (14-59) U/L Alkaline Phosphatase (46-116) U/L Troponin I (0.00-0.056) ng/mL C-Reactive Protein (<1.0) mg/dL NT-Pro-B Natriuret Pep (0-125) pg/mL Total Protein (6.4-8.2) g/dl Albumin (3.4-5.0) g/dl Globulin gm/dL Albumin/Globulin Ratio (1-2) Vitamin B12 (193-986) pg/ml TSH 3rd Generation (0.358-3.74) uIU/mL Urine Color Yellow (Yellow) Urine Appearance Clear (Clear) Urine pH 7.0 (5.0-8.0) Ur Specific [place] 1.015 (1.005-1.030) Urine Protein Negative (Negative) Urine Glucose (UA) Negative (Negative) Urine Ketones Negative (Negative) Urine Occult Blood Trace-intact H (Negative) Urine Nitrite Negative (Negative) Urine Bilirubin Negative (Negative) Urine Urobilinogen 0.2 (0.2-1.0) Ur Leukocyte Esterase Negative (Negative) Urine RBC 5-10 H (0-5) /hpf Urine WBC 0-5 (0-5) /hpf Ur Squamous Epith Cells 0-5 (0-5) /hpf Urine Bacteria Moderate H (FEW) /hpf Urine Mucus Few (FEW) /hpf Urine Opiates Screen (HTIFWZ=965) Ur Buprenorphine Scrn (CUTOFF=10) Ur Oxycodone Screen (TER6IT=023) Urine Methadone Screen (LWKSGX=536) Ur Propoxyphene Screen (KOVKHN=971) Ur Barbiturates Screen (DNBPFS=652) Valproic Acid (50.0-100.0) ug/mL Ur Tricyclics Screen (TTQASU=382) Ur Phencyclidine Scrn (CUTOFF=25) Ur Amphetamine Screen (UMYPIC=411) U Methamphetamines Scrn (KARWND=779) U Benzodiazepines Scrn (IUJIDK=593) U Cocaine Metab Screen (OBPCAE=210) U Marijuana (THC) Screen (CUTOFF=50) SARS Virus RNA (PCR) (NEGATIVE) 05/19/20 05/19/20 05/19/20 Range/Units 18:50 21:30 21:30 WBC (3.98-10.04) K/mm3 RBC (3.98-5.22) M/mm3 Hgb (11.2-15.7) gm/dl Hct (34.1-44.9) % MCV (79.4-94.8) fl MCH (25.6-32.2) pg MCHC (32.2-35.5) g/dl RDW Std Deviation (36.4-46.3) fL Plt Count (182-369) K/mm3 MPV (9.4-12.3) fl Neut % (Auto) (34.0-71.1) % Lymph % (Auto) (19.3-51.7) % [place] % (Auto) (4.7-12.5) % Eos % (Auto) (0.7-5.8) Baso % (Auto) (0.1-1.2) % Neut # (Auto) (1.56-6.13) K/mm3 Lymph # (Auto) (1.18-3.74) K/mm3 [place] # (Auto) (0.24-0.36) K/mm3 Eos # (Auto) (0.04-0.36) K/mm3 Baso # (Auto) (0.01-0.08) K/mm3 Manual Slide Review Sodium 128 L (136-145) mEq/L Potassium 3.4 L (3.5-5.1) mEq/L Chloride 94 L (98-107) mEq/L Carbon Dioxide 25 (21-32) mEq/L Anion Gap 12.4 (5-15) BUN 12 (7-18) mg/dL Creatinine 0.8 (0.55-1.02) mg/dL Est Cr Clr Drug Dosing 74.54 mL/min Estimated GFR (MDRD) > 60 (>60) mL/min BUN/Creatinine Ratio 15.0 (14-18) Glucose 36 L (74-106) mg/dL POC Glucose (70-105) mg/dL Hemoglobin A1c (4.50-6.20) % Serum Osmolality (280-300) mosm/kg Lactic Acid 1.4 (0.4-2.0) mmol/L Calcium 8.4 L (8.5-10.1) mg/dL Magnesium (1.8-2.4) mg/dl Total Bilirubin (0.2-1.0) mg/dL AST (15-37) U/L ALT (14-59) U/L Alkaline Phosphatase (46-116) U/L Troponin I (0.00-0.056) ng/mL C-Reactive Protein (<1.0) mg/dL NT-Pro-B Natriuret Pep (0-125) pg/mL Total Protein (6.4-8.2) g/dl Albumin (3.4-5.0) g/dl Globulin gm/dL Albumin/Globulin Ratio (1-2) Vitamin B12 (193-986) pg/ml TSH 3rd Generation (0.358-3.74) uIU/mL Urine Color (Yellow) Urine Appearance (Clear) Urine pH (5.0-8.0) Ur Specific [place] (1.005-1.030) Urine Protein (Negative) Urine Glucose (UA) (Negative) Urine Ketones (Negative) Urine Occult Blood (Negative) Urine Nitrite (Negative) Urine Bilirubin (Negative) Urine Urobilinogen (0.2-1.0) Ur Leukocyte Esterase (Negative) Urine RBC (0-5) /hpf Urine WBC (0-5) /hpf Ur Squamous Epith Cells (0-5) /hpf Urine Bacteria (FEW) /hpf Urine Mucus (FEW) /hpf Urine Opiates Screen (GLQEVC=087) Ur Buprenorphine Scrn (CUTOFF=10) Ur Oxycodone Screen (SSR9JZ=567) Urine Methadone Screen (ZBYIOU=238) Ur Propoxyphene Screen (CDKKDO=420) Ur Barbiturates Screen (DLLFBT=315) Valproic Acid (50.0-100.0) ug/mL Ur Tricyclics Screen (KLGJIE=099) Ur Phencyclidine Scrn (CUTOFF=25) Ur Amphetamine Screen (KRLJMN=781) U Methamphetamines Scrn (GDYDPS=440) U Benzodiazepines Scrn (DSKIUF=986) U Cocaine Metab Screen (WEQXSN=317) U Marijuana (THC) Screen (CUTOFF=50) SARS Virus RNA (PCR) Negative (NEGATIVE) 05/19/20 05/19/20 05/19/20 Range/Units 22:10 22:35 23:36 WBC (3.98-10.04) K/mm3 RBC (3.98-5.22) M/mm3 Hgb (11.2-15.7) gm/dl Hct (34.1-44.9) % MCV (79.4-94.8) fl MCH (25.6-32.2) pg MCHC (32.2-35.5) g/dl RDW Std Deviation (36.4-46.3) fL Plt Count (182-369) K/mm3 MPV (9.4-12.3) fl Neut % (Auto) (34.0-71.1) % Lymph % (Auto) (19.3-51.7) % [place] % (Auto) (4.7-12.5) % Eos % (Auto) (0.7-5.8) Baso % (Auto) (0.1-1.2) % Neut # (Auto) (1.56-6.13) K/mm3 Lymph # (Auto) (1.18-3.74) K/mm3 [place] # (Auto) (0.24-0.36) K/mm3 Eos # (Auto) (0.04-0.36) K/mm3 Baso # (Auto) (0.01-0.08) K/mm3 Manual Slide Review Sodium (136-145) mEq/L Potassium (3.5-5.1) mEq/L Chloride (98-107) mEq/L Carbon Dioxide (21-32) mEq/L Anion Gap (5-15) BUN (7-18) mg/dL Creatinine (0.55-1.02) mg/dL Est Cr Clr Drug Dosing mL/min Estimated GFR (MDRD) (>60) mL/min BUN/Creatinine Ratio (14-18) Glucose (74-106) mg/dL POC Glucose 45 L 119 H 157 H (70-105) mg/dL Hemoglobin A1c (4.50-6.20) % Serum Osmolality (280-300) mosm/kg Lactic Acid (0.4-2.0) mmol/L Calcium (8.5-10.1) mg/dL Magnesium (1.8-2.4) mg/dl Total Bilirubin (0.2-1.0) mg/dL AST (15-37) U/L ALT (14-59) U/L Alkaline Phosphatase (46-116) U/L Troponin I (0.00-0.056) ng/mL C-Reactive Protein (<1.0) mg/dL NT-Pro-B Natriuret Pep (0-125) pg/mL Total Protein (6.4-8.2) g/dl Albumin (3.4-5.0) g/dl Globulin gm/dL Albumin/Globulin Ratio (1-2) Vitamin B12 (193-986) pg/ml TSH 3rd Generation (0.358-3.74) uIU/mL Urine Color (Yellow) Urine Appearance (Clear) Urine pH (5.0-8.0) Ur Specific [place] (1.005-1.030) Urine Protein (Negative) Urine Glucose (UA) (Negative) Urine Ketones (Negative) Urine Occult Blood (Negative) Urine Nitrite (Negative) Urine Bilirubin (Negative) Urine Urobilinogen (0.2-1.0) Ur Leukocyte Esterase (Negative) Urine RBC (0-5) /hpf Urine WBC (0-5) /hpf Ur Squamous Epith Cells (0-5) /hpf Urine Bacteria (FEW) /hpf Urine Mucus (FEW) /hpf Urine Opiates Screen (FXYPMC=238) Ur Buprenorphine Scrn (CUTOFF=10) Ur Oxycodone Screen (IYX4OM=021) Urine Methadone Screen (JDKDLQ=502) Ur Propoxyphene Screen (GOODNV=946) Ur Barbiturates Screen (RWVZKX=770) Valproic Acid (50.0-100.0) ug/mL Ur Tricyclics Screen (DSQKCD=641) Ur Phencyclidine Scrn (CUTOFF=25) Ur Amphetamine Screen (VJATBK=104) U Methamphetamines Scrn (KWTOCL=293) U Benzodiazepines Scrn (MZFWWH=713) U Cocaine Metab Screen (XVOVDL=768) U Marijuana (THC) Screen (CUTOFF=50) SARS Virus RNA (PCR) (NEGATIVE) 05/20/20 05/20/20 05/20/20 Range/Units 00:58 02:38 03:15 WBC (3.98-10.04) K/mm3 RBC (3.98-5.22) M/mm3 Hgb (11.2-15.7) gm/dl Hct (34.1-44.9) % MCV (79.4-94.8) fl MCH (25.6-32.2) pg MCHC (32.2-35.5) g/dl RDW Std Deviation (36.4-46.3) fL Plt Count (182-369) K/mm3 MPV (9.4-12.3) fl Neut % (Auto) (34.0-71.1) % Lymph % (Auto) (19.3-51.7) % [place] % (Auto) (4.7-12.5) % Eos % (Auto) (0.7-5.8) Baso % (Auto) (0.1-1.2) % Neut # (Auto) (1.56-6.13) K/mm3 Lymph # (Auto) (1.18-3.74) K/mm3 [place] # (Auto) (0.24-0.36) K/mm3 Eos # (Auto) (0.04-0.36) K/mm3 Baso # (Auto) (0.01-0.08) K/mm3 Manual Slide Review Sodium (136-145) mEq/L Potassium (3.5-5.1) mEq/L Chloride (98-107) mEq/L Carbon Dioxide (21-32) mEq/L Anion Gap (5-15) BUN (7-18) mg/dL Creatinine (0.55-1.02) mg/dL Est Cr Clr Drug Dosing mL/min Estimated GFR (MDRD) (>60) mL/min BUN/Creatinine Ratio (14-18) Glucose (74-106) mg/dL POC Glucose 135 H 106 H 142 H (70-105) mg/dL Hemoglobin A1c (4.50-6.20) % Serum Osmolality (280-300) mosm/kg Lactic Acid (0.4-2.0) mmol/L Calcium (8.5-10.1) mg/dL Magnesium (1.8-2.4) mg/dl Total Bilirubin (0.2-1.0) mg/dL AST (15-37) U/L ALT (14-59) U/L Alkaline Phosphatase (46-116) U/L Troponin I (0.00-0.056) ng/mL C-Reactive Protein (<1.0) mg/dL NT-Pro-B Natriuret Pep (0-125) pg/mL Total Protein (6.4-8.2) g/dl Albumin (3.4-5.0) g/dl Globulin gm/dL Albumin/Globulin Ratio (1-2) Vitamin B12 (193-986) pg/ml TSH 3rd Generation (0.358-3.74) uIU/mL Urine Color (Yellow) Urine Appearance (Clear) Urine pH (5.0-8.0) Ur Specific [place] (1.005-1.030) Urine Protein (Negative) Urine Glucose (UA) (Negative) Urine Ketones (Negative) Urine Occult Blood (Negative) Urine Nitrite (Negative) Urine Bilirubin (Negative) Urine Urobilinogen (0.2-1.0) Ur Leukocyte Esterase (Negative) Urine RBC (0-5) /hpf Urine WBC (0-5) /hpf Ur Squamous Epith Cells (0-5) /hpf Urine Bacteria (FEW) /hpf Urine Mucus (FEW) /hpf Urine Opiates Screen (DGMXBZ=122) Ur Buprenorphine Scrn (CUTOFF=10) Ur Oxycodone Screen (XWB5IF=805) Urine Methadone Screen (XXDOVE=280) Ur Propoxyphene Screen (WENEKF=012) Ur Barbiturates Screen (RLXDKZ=118) Valproic Acid (50.0-100.0) ug/mL Ur Tricyclics Screen (WSBHWA=772) Ur Phencyclidine Scrn (CUTOFF=25) Ur Amphetamine Screen (NCZHDZ=419) U Methamphetamines Scrn (AQARWA=366) U Benzodiazepines Scrn (TKOZGZ=790) U Cocaine Metab Screen (WLYSYT=451) U Marijuana (THC) Screen (CUTOFF=50) SARS Virus RNA (PCR) (NEGATIVE) 05/20/20 05/20/20 05/20/20 Range/Units 04:20 04:20 05:08 WBC 2.59 L (3.98-10.04) K/mm3 RBC 3.31 L (3.98-5.22) M/mm3 Hgb 8.9 L D (11.2-15.7) gm/dl Hct 28.2 L (34.1-44.9) % MCV 85.2 (79.4-94.8) fl MCH 26.9 (25.6-32.2) pg MCHC 31.6 L (32.2-35.5) g/dl RDW Std Deviation 54.3 H (36.4-46.3) fL Plt Count 178 L (182-369) K/mm3 MPV 10.3 (9.4-12.3) fl Neut % (Auto) 34.3 (34.0-71.1) % Lymph % (Auto) 49.8 (19.3-51.7) % [place] % (Auto) 12.4 (4.7-12.5) % Eos % (Auto) 2.7 (0.7-5.8) Baso % (Auto) 0.8 (0.1-1.2) % Neut # (Auto) 0.89 L (1.56-6.13) K/mm3 Lymph # (Auto) 1.29 (1.18-3.74) K/mm3 [place] # (Auto) 0.32 (0.24-0.36) K/mm3 Eos # (Auto) 0.07 (0.04-0.36) K/mm3 Baso # (Auto) 0.02 (0.01-0.08) K/mm3 Manual Slide Review Abnormal smear Sodium 131 L (136-145) mEq/L Potassium 3.8 (3.5-5.1) mEq/L Chloride 100 (98-107) mEq/L Carbon Dioxide 26 (21-32) mEq/L Anion Gap 8.8 (5-15) BUN 13 (7-18) mg/dL Creatinine 0.8 (0.55-1.02) mg/dL Est Cr Clr Drug Dosing 74.54 mL/min Estimated GFR (MDRD) > 60 (>60) mL/min BUN/Creatinine Ratio 16.3 (14-18) Glucose 108 H (74-106) mg/dL POC Glucose 111 H (70-105) mg/dL Hemoglobin A1c (4.50-6.20) % Serum Osmolality (280-300) mosm/kg Lactic Acid (0.4-2.0) mmol/L Calcium 7.6 L (8.5-10.1) mg/dL Magnesium 2.3 (1.8-2.4) mg/dl Total Bilirubin (0.2-1.0) mg/dL AST (15-37) U/L ALT (14-59) U/L Alkaline Phosphatase (46-116) U/L Troponin I (0.00-0.056) ng/mL C-Reactive Protein (<1.0) mg/dL NT-Pro-B Natriuret Pep (0-125) pg/mL Total Protein (6.4-8.2) g/dl Albumin (3.4-5.0) g/dl Globulin gm/dL Albumin/Globulin Ratio (1-2) Vitamin B12 (193-986) pg/ml TSH 3rd Generation (0.358-3.74) uIU/mL Urine Color (Yellow) Urine Appearance (Clear) Urine pH (5.0-8.0) Ur Specific [place] (1.005-1.030) Urine Protein (Negative) Urine Glucose (UA) (Negative) Urine Ketones (Negative) Urine Occult Blood (Negative) Urine Nitrite (Negative) Urine Bilirubin (Negative) Urine Urobilinogen (0.2-1.0) Ur Leukocyte Esterase (Negative) Urine RBC (0-5) /hpf Urine WBC (0-5) /hpf Ur Squamous Epith Cells (0-5) /hpf Urine Bacteria (FEW) /hpf Urine Mucus (FEW) /hpf Urine Opiates Screen (CDKHGF=619) Ur Buprenorphine Scrn (CUTOFF=10) Ur Oxycodone Screen (FDB5PS=958) Urine Methadone Screen (HAHXQU=089) Ur Propoxyphene Screen (UCBQUE=294) Ur Barbiturates Screen (HFLBKU=195) Valproic Acid (50.0-100.0) ug/mL Ur Tricyclics Screen (OQSCZI=096) Ur Phencyclidine Scrn (CUTOFF=25) Ur Amphetamine Screen (UUKUSU=941) U Methamphetamines Scrn (BGKYLZ=370) U Benzodiazepines Scrn (XWYHYS=707) U Cocaine Metab Screen (SKMZDG=167) U Marijuana (THC) Screen (CUTOFF=50) SARS Virus RNA (PCR) (NEGATIVE) Med Orders - Current: Current Medications Albuterol/Ipratropium (Duoneb 3.0-0.5 Mg/3 Ml) 3 ml NEB Q4H PRN PRN Reason: Shortness Of Breath/wheezing Bisacodyl (Dulcolax) 5 mg PO DAILY PRN PRN Reason: Constipation Dextrose/Water (Dextrose 50% In Water) 50 ml IVPUSH ASDIRECTED PRN PRN Reason: Hypoglycemia Dextrose/Water (Dextrose 50% In Water) 25 ml IVPUSH ASDIRECTED PRN PRN Reason: Hypoglycemia Last Admin: 05/19/20 22:13 Dose: 25 ml Documented by: Docusate Sodium (Colace) 100 mg PO BID PRN PRN Reason: Constipation Gabapentin (Neurontin) 600 mg PO BEDTIME ONE Stop: 05/20/20 22:54 Heparin Sodium (Porcine) (Heparin Sodium) 5,000 units SUBCUT Q8H JODI Last Admin: 05/20/20 05:03 Dose: 5,000 units Documented by: Hydromorphone HCl (Dilaudid) 0.25 mg IVPUSH Q2H PRN PRN Reason: Pain (severe 7-10) Dextrose/Sodium Chloride (Dextrose 5%-Normal Saline) 1,000 mls @ 250 mls/hr IV ASDIRECTED JODI Last Admin: 05/20/20 06:07 Dose: 200 mls/hr Documented by: Sodium Chloride (Normal Saline) 1,000 mls @ 75 mls/hr IV ASDIRECTED JODI Stop: 05/20/20 08:34 Promethazine HCl 12.5 mg/ (Sodium Chloride) 50.5 mls @ 100 mls/hr IV Q6H PRN PRN Reason: Nausea/Vomiting Norepinephrine Bitartrate 4 mg (/ Dextrose/Water) 250 mls @ 7.5 mls/hr IV TITRATE JODI; Protocol Ketorolac Tromethamine (Toradol) 30 mg IVPUSH Q6H PRN PRN Reason: Pain (moderate 4-6) Midodrine (Midodrine) 5 mg PO TIDAC PRN PRN Reason: Hypotension Last Admin: 05/19/20 22:05 Dose: 5 mg Documented by: Miscellaneous Information (Remove Patch) 1 ea TRDERM DAILY [facility] Nicotine (Habitrol) 14 mg TRDERM DAILY [facility] Ondansetron HCl (Zofran) 4 mg IV Q6H PRN PRN Reason: Nausea/Vomiting Polyethylene Glycol (Miralax) 17 gm PO DAILY PRN PRN Reason: Constipation Senna/Docusate Sodium (Senna Plus) 1 tab PO BID PRN PRN Reason: Constipation Zolpidem Tartrate (Ambien) 5 mg PO BEDTIME PRN PRN Reason: Sleep Discontinued Medications Acetaminophen (Tylenol) 650 mg PO NOW STA Stop: 05/19/20 17:46 Last Admin: 05/19/20 17:48 Dose: 650 mg Documented by: Clonazepam (Klonopin) 1 mg PO BEDTIME ONE Stop: 05/19/20 23:31 Last Admin: 05/20/20 01:51 Dose: Not Given Documented by: Clonazepam (Klonopin) 1 mg PO ONETIME ONE Stop: 05/20/20 01:46 Last Admin: 05/20/20 01:51 Dose: 1 mg Documented by: Divalproex Sodium (Depakote) 500 mg PO ONETIME ONE Stop: 05/19/20 22:53 Last Admin: 05/20/20 01:51 Dose: Not Given Documented by: Divalproex Sodium (Depakote) 500 mg PO ONETIME ONE Stop: 05/20/20 01:46 Last Admin: 05/20/20 01:50 Dose: 500 mg Documented by: Dextrose/Sodium Chloride (Dextrose 5%-Normal Saline) 1,000 mls @ 500 mls/hr IV ASDIRECTED [facility] Last Infusion: 05/19/20 17:41 Dose: 999 mls/hr Documented by: Potassium Chloride 10 meq/ (Premix) 100 mls @ 100 mls/hr IV Q1H JODI Stop: 05/19/20 23:29 Last Admin: 05/20/20 00:41 Dose: 100 mls/hr Documented by: Magnesium Sulfate/Dextrose 1 (gm/ Premix) 100 mls @ 100 mls/hr IV Q1H JODI Stop: 05/19/20 21:29 Last Admin: 05/20/20 04:28 Dose: 100 mls/hr Documented by: Sodium Chloride (Normal Saline) 500 mls @ 999 mls/hr IV .BOLUS ONE Stop: 05/19/20 23:31 Last Admin: 05/19/20 23:38 Dose: 999 mls/hr Documented by: Sodium Chloride (Normal Saline) 500 mls @ 999 mls/hr IV .BOLUS ONE Stop: 05/20/20 00:10 Last Admin: 05/19/20 23:50 Dose: 999 mls/hr Documented by: Trazodone HCl (Trazodone) 100 mg PO ONETIME ONE Stop: 05/19/20 22:53 Last Admin: 05/20/20 01:51 Dose: Not Given Documented by: Trazodone HCl (Trazodone) 100 mg PO ONETIME ONE Stop: 05/20/20 01:46 Last Admin: 05/20/20 02:11 Dose: 100 mg Documented by: - Exam General: Alert, Oriented, Cooperative, No Acute Distress HEENT: Pupils Equal, Pupils Reactive, EOMI, Mucous Membr. Moist/[place] Neck: Supple Lungs: Clear to Auscultation, Normal Respiratory Effort Cardiovascular: Regular Rate, Regular Rhythm GI/Abdominal Exam: Normal Bowel Sounds, Soft, Non-Tender, No Organomegaly, No Distention, No Abnormal Bruit, Other (mid-line scar) (Female) Exam: Deferred Back Exam: Normal Inspection, Decreased Range of Motion Extremities: Normal Inspection, Normal Range of Motion, Non-Tender, No Pedal Edema, Normal Capillary Refill Peripheral Pulses: 2+: Dorsalis Pedis (L), Dorsalis Pedis (R) Skin: Warm, Dry, Intact Neurological: No New Focal Deficit Psy/Mental Status: Alert, Normal Affect, Normal Mood Sepsis Event Note - Evaluation Sepsis Screening Result: No Definite Risk - Focused Exam Vital Signs: Vital Signs Temp Pulse Pulse Resp BP BP Pulse Ox 05/20/20 05:41 59 L 92/62 96 05/20/20 05:40 58 L 95 05/20/20 05:31 58 L 94/64 96 05/20/20 05:30 58 L 95 05/20/20 05:21 56 L 97/68 100 05/20/20 05:20 57 L 100 05/20/20 05:11 55 L 100/67 100 05/20/20 05:10 56 L 100 05/20/20 05:01 56 L 99/65 98 05/20/20 05:00 56 L 98 05/20/20 04:51 56 L 101/67 99 05/20/20 04:50 56 L 98 05/20/20 04:41 56 L 88/62 L 98 05/20/20 04:40 55 L 98 05/20/20 04:31 57 L 94/59 L 99 05/20/20 04:30 56 L 98 05/20/20 04:21 59 L 98/69 100 05/20/20 04:20 56 L 97 05/20/20 04:11 56 L 93/63 97 05/20/20 04:10 56 L 98 05/20/20 04:01 58 L 91/60 97 05/20/20 04:00 57 L 96 05/20/20 03:51 55 L 84/59 L 96 05/20/20 03:50 55 L 96 05/20/20 03:41 55 L 87/61 L 98 05/20/20 03:40 56 L 99 05/20/20 03:31 56 L 95/66 99 05/20/20 03:30 55 L 100 05/20/20 03:21 57 L 97 05/20/20 03:20 58 L 85/60 L 97 05/20/20 03:19 56 L 96 05/20/20 03:11 57 L 97 05/20/20 03:10 56 L 87/60 L 97 05/20/20 03:09 63 97 05/20/20 03:01 56 L 97 05/20/20 03:00 58 L 83/63 L 96 05/20/20 02:59 57 L 97 05/20/20 02:51 58 L 96 05/20/20 02:50 58 L 88/63 L 97 05/20/20 02:49 57 L 97 05/20/20 02:41 56 L 100 05/20/20 02:40 57 L 97/60 100 05/20/20 02:39 59 L 99 05/20/20 02:31 57 L 98 05/20/20 02:30 59 L 82/55 L 98 05/20/20 02:29 58 L 97 05/20/20 02:22 59 L 87/59 L 99 05/20/20 02:21 58 L 99 05/20/20 02:20 59 L 87/59 L 99 05/20/20 02:19 60 98 05/20/20 02:11 56 L 100 05/20/20 02:10 56 L 88/58 L 100 05/20/20 02:09 57 L 100 05/20/20 02:01 58 L 100 05/20/20 02:00 60 98/66 100 05/20/20 01:58 59 L 100 05/20/20 01:51 58 L 99 05/20/20 01:50 57 L 80/48 L 99 05/20/20 01:49 57 L 99 05/20/20 01:41 58 L 99 05/20/20 01:40 58 L 74/45 L 99 05/20/20 01:39 59 L 98 05/20/20 01:31 62 99 05/20/20 01:30 57 L 78/48 L 98 05/20/20 01:29 57 L 99 05/20/20 01:21 56 L 88/54 L 98 05/20/20 01:20 57 L 98 05/20/20 01:11 58 L 100 05/20/20 01:10 58 L 101/78 100 05/20/20 01:09 58 L 100 05/20/20 01:01 62 94/75 100 05/20/20 01:00 61 100 05/20/20 00:53 55 L 90/56 L 100 05/20/20 00:52 56 L 100 05/20/20 00:51 57 L 100 05/20/20 00:50 58 L 94/81 100 05/20/20 00:49 58 L 94/57 L 100 05/20/20 00:48 60 100 05/20/20 00:41 60 100 05/20/20 00:40 58 L 90/51 L 100 05/20/20 00:39 57 L 100 05/20/20 00:37 63 98 05/20/20 00:21 102/71 05/20/20 00:15 108/48 L 05/20/20 00:00 86/61 L 05/19/20 23:58 59 L 97 05/19/20 23:51 55 L 97 05/19/20 23:50 56 L 72/44 L 97 05/19/20 23:49 54 L 97 05/19/20 23:41 56 L 68/38 L 97 05/19/20 23:40 56 L 97 05/19/20 23:37 56 L 71/39 L 99 05/19/20 23:36 57 L 98 05/19/20 23:33 58 L 76/42 L 96 05/19/20 23:32 57 L 99 05/19/20 23:30 57 L 99 05/19/20 23:21 58 L 61/35 L 96 05/19/20 23:20 58 L 96 05/19/20 23:17 59 L 63/33 L 96 05/19/20 23:16 59 L 96 05/19/20 23:12 62 68/35 L 100 05/19/20 23:11 65 98 05/19/20 23:10 60 83 L 05/19/20 23:01 59 L 57/31 L 99 05/19/20 23:00 59 L 99 05/19/20 22:51 61 79/43 L 100 05/19/20 22:50 61 99 05/19/20 22:41 60 79/46 L 98 05/19/20 22:40 59 L 99 05/19/20 22:31 61 80/40 L 97 05/19/20 22:30 60 96 05/19/20 22:22 60 97 05/19/20 22:21 60 89/61 L 98 05/19/20 19:04 37.1 C 51 L 18 81/55 L 98 Date Exam was Performed: 05/20/20 Time Exam was Performed: 19:22 - Problem List Review Problem List Initiated/Reviewed/Updated: Yes - My Orders Last 24 Hours: My Active Orders 05/19/20 Dinner Regular Diet [DIET] 05/19/20 19:04 Height and Weight [RC] 0400 Oxygen Therapy [RC] .PRN Up ad Nova [RC] .PRN VTE/DVT Education [RC] Vital Signs [RC] Q4HR Consult to Rig Manager [CONS] Routine Albuterol/Ipratropium [DuoNeb 3.0-0.5 MG/3 ML] 3 ml NEB Q4H PRN Docusate Sodium [Colace] 100 mg PO BID PRN Docusate Sodium/Sennosides [Senna Plus] 1 tab PO BID PRN HYDROmorphone [Dilaudid] 0.25 mg IVPUSH Q2H PRN Ketorolac [Toradol] 30 mg IVPUSH Q6H PRN Ondansetron [Zofran] 4 mg IV Q6H PRN Promethazine [Phenergan] 12.5 mg Sodium Chloride 0.9% [Normal Saline] 50 ml IV Q6H Zolpidem [Ambien] 5 mg PO BEDTIME PRN bisacodyL [Dulcolax] 5 mg PO DAILY PRN polyethylene glycoL 3350 [MiraLAX] 17 gm PO DAILY PRN Sequential Compression Device [OM.PC] Per Unit Routine Resuscitation Status Routine 05/19/20 19:06 Antiembolic Devices [RC] 09,05/19/20 19:07 RT Aerosol Therapy [RC] ASDIRECTED 05/19/20 19:15 Sodium Chloride 0.9% [Normal Saline] 1,000 ml IV ASDIRECTED 05/19/20 19:40 Blood Glucose Check, Bedside [RC] Q4H Dextrose 50% in Water 50 ml IVPUSH ASDIRECTED PRN 05/19/20 20:00 Heparin Sodium 5,000 units SUBCUT Q8H 05/19/20 20:08 Midodrine 5 mg PO TIDAC PRN 05/20/20 09:00 Nicotine [Habitrol] 14 mg TRDERM DAILY 05/21/20 05:11 BASIC METABOLIC PANEL,BMP [CHEM] AM MAGNESIUM [CHEM] AM 05/21/20 07:00 CBC W/O DIFF,HEMOGRAM [HEME] MOTH@69905/22/20 05:11 BASIC METABOLIC PANEL,BMP [CHEM] AM MAGNESIUM [CHEM] AM 05/24/20 07:00 CBC W/O DIFF,HEMOGRAM [HEME] MOTH@69905/28/20 07:00 CBC W/O DIFF,HEMOGRAM [HEME] MOTH@69905/31/20 07:00 CBC W/O DIFF,HEMOGRAM [HEME] MOTH@69906/04/20 07:00 CBC W/O DIFF,HEMOGRAM [HEME] MOTH@69906/07/20 07:00 CBC W/O DIFF,HEMOGRAM [HEME] MOTH@0700 - Plan Plan:: Assessment: This is a 60 yo with past medical hx/o Impaired Vision, AR, HTN, Hx/o Blood Clots/PE, GERD, PUD, Hx/o Peritonitis, Gastric Ulcer, Recurrent UTI, OA, Migraines, Seizure Disorder, Substance Abuse, DM2, Post-gastric bypass hypoglycemia, Gastric surgery in 2007 with resulted dumping syndrome, Anemia, RILEY, 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 Acute: * SIRS: Mild Leukocytopenia, hypotensive, elevated lactic acids but no clear source. Negative COVID -19 screening and UA. * Hypoglycemia. Acute on Chronic. Has had hx/o hypoglycemia as low as 37. She used to be diabetic but developed dumping syndrome post gastric by pass. She presented to ED with BS at low as 66. She has since improved to 170s after receiving 1L of D5W. A1C of 5.30. Continue D5W infusion. Goal BS > at > 200. * Profound Hypotension. She presents with a BP as low at 82/52 mmHg. Has received 4lL of fluids for volume resuscitation. Continue with volume resuscitation. Consider pressor gtt if she does not improve. * Normocytic, Normochromic Anemia. She presents with a Hgb level of 10.8, now 8.9 grams. Baseline is 8.3-11.9 grams. No report of active bleeding or melena. This is due to hemo-dilution. She received a total of 4L fluids for volume resuscitation. Will monitor. * Euvolemic Hypo-osmolar Hyponatremia. She presents with a Na of 129, now 131. She is on a lot of psych medications and also on chlorthalidone and zoloft which are known to lower sodium. Continue to hold chlorthalidone. * Nicotine dependence. Smokes half a pack a day. Counseled on smoking cessation. Nicotine patch daily. * Substance Abuse. UDS positive for THC. Counseled on non-medical marijuana use. * Hypocalcemia. She presents with normal level but now at 7.6, likely due to calcium dilution and inadequate intake. Expect to improve once she starts eating. Resolved: * Hypokalemia. She presents with a K level of 2.6. This is likely 2/2 inadequate intake also diuresis with lasix. Now within normal range. * Hypochloremia. Cl of 86. Again, likely due to diuresis. Encourage to eat. Now within normal range. * Lactic Acidosis. She has no signs of systemic infection. She is a little low on WBC but afebrile. This is likely due to starvation ketosis. She has received 1L of fluids in ED. Now within normal range. * Hypomagnesemia. She presents with a Mg level of 1.7. Now within normal range. Chronic: Impaired Vision, AR, HTN, Hx/o Blood Clots/PE, GERD, PUD, Hx/o Peritonitis, Gastric Ulcer, Recurrent UTI, OA, Migraines, Seizure Disorder, Substance Abuse, DM2, Post-gastric bypass hypoglycemia, Gastric surgery in 2007 with resulted dumping syndrome, Anemia, RILEY, AT3 Deficiency, Anxiety, Bipolar Disorder, Depression, and Hx/o Psych inpatient treatment Plan: Continue current treatment. Resume home meds once verified. Hold diuretic and BP meds. D5W for hydration and hypoglycemia. Accu-check Q4H. Regular diet with complex carb-per patient low carb and high protein diet. She can eat whatever to include complex carb. Obtain records from [place] during her recent hospitalization back in March. DVT/GI prophylaxis. Code status is full. Possible discharge in 2 days. Critical Care time spent: 30 mins Obtained notes from [place] with the following recommendations on 03/27/2020: * Acarbose 25 mg prior to meals, this can be titrated up-will resume home me dication * Rig Manager to see outpatient * 1 Table spoon of peanut butter before meals or snack * Eat protein and healthy fat first, limit carb and sugars * Treat low blood sugars with high protein/fat vs simple carbs
[2020-05-20] MEDS: Nicotine 14 MG/24 Hr Patch TRDERM SCH (08:10)
[2020-05-20] MEDS: REMOVE NICOTINE TRDERM SCH (08:11)
--- NOTE | 2020-05-20 09:51 | CR ---
Chest: Portable view of the chest was obtained. Comparison: Prior chest x-ray of 12/17/19. Heart size and mediastinum are normal. Lungs are clear with no acute parenchymal change. Bony structures are grossly intact. Impression: 1. Nothing acute is appreciated on portable chest x-ray. Diagnostic code #1 This report was dictated in MDT
[2020-05-20] MEDS: 50% Dextrose in Water 50 ML Syringe IVPUSH PRN (14:01)
[2020-05-20] MEDS: Gabapentin 600 MG Tab PO SCH ×2 (14:02→20:20)
[2020-05-20] MEDS ORDERED: ClonazePAM 1 MG Tab PO SCH (15:00)
[2020-05-20] MEDS: ClonazePAM 1 MG Tab PO SCH (18:57)
[2020-05-20] MEDS: traZODone 50 MG Tab PO SCH (20:20)
[2020-05-20] MEDS: Divalproex Sodium Delayed-Release 500 MG Tab.CR PO SCH (20:20)
[2020-05-20] MEDS: SUMAtriptan 50 MG Tab PO PRN (21:03)
[2020-05-20] MEDS: HYDROmorphone 0.5 MG/0.5 ML Syringe IVPUSH PRN (21:06)
[2020-05-20] MEDS ORDERED: Gabapentin 600 MG Tab PO ONE (22:53)
[2020-05-21] MEDS: Dextrose 5%-0.9% NaCl 1,000 ML IV SCH ×2 (02:53→06:43)
[2020-05-21] MEDS: Ketorolac 30 MG/ML SDV IVPUSH PRN ×4 (02:57→23:55)
[2020-05-21] MEDS: Heparin Sodium 5,000 Units/ML Vial SUBCUT SCH ×3 (05:09→20:01)
--- NOTE | 2020-05-21 06:53 | PCM.PN ---
- General Info Date of Service: 05/21/20 Admission Dx/Problem (Free Text): Hypoglycemia Subjective Update: 05/21/20: She slept good but woke up with a migraine headache and sore back this morning. Her glucose has been fluctuating in the 90-low teens. She is still on D5W infusion. 05/20/20: No overnight or acute issues. She feels much better this morning. Her glucose level dropped again last night so they had to increased her fluid rate to 200 cc. She is afebrile. Functional Status: Reports: Pain Controlled, Tolerating Diet, Ambulating, Urinating - Review of Systems General: Denies: Fever, Weakness, Fatigue, Malaise, Chills HEENT: Reports: No Symptoms Pulmonary: Denies: Shortness of Breath Cardiovascular: Denies: Chest Pain, Dyspnea on Exertion, Lightheadedness Gastrointestinal: Denies: Abdominal Pain, Constipation, Diarrhea, Nausea, Vomiting Genitourinary: Reports: Incontinence Musculoskeletal: Reports: Other (Sore back) Skin: Reports: No Symptoms Neurological: Reports: Headache. Denies: Dizziness, Paresthesia, Seizure, Tingling, Tremors, Trouble Speaking, Change in Speech Psychiatric: Denies: Depression, Anxiety, Agitation, Hallucinations, Suicidal Ideation, Homicidal Ideation - Patient Data Vitals - Most Recent: Last Vital Signs Temp 36.4 C 05/21/20 04:00 Pulse 63 05/21/20 04:00 Resp 14 05/21/20 04:00 BP 93/54 L 05/21/20 04:00 Pulse Ox 94 L 05/21/20 04:00 Orthostatic Blood Pressure [ 82/52 Standing] Orthostatic Blood Pressure [ 89/60 Supine] Weight - Most Recent: 81.193 kg I&O - Last 24 Hours: Intake & Output 05/20/20 05/20/20 05/21/20 14:59 22:59 06:59 Intake Total 200 1967 3204 Output Total 700 Balance -500 1967 320 Lab Results Last 24 Hours: Laboratory Results - last 24 hr 05/20/20 05/20/20 05/20/20 Range/Units 08:07 10:40 13:57 WBC (3.98-10.04) K/mm3 RBC (3.98-5.22) M/mm3 Hgb (11.2-15.7) gm/dl Hct (34.1-44.9) % MCV (79.4-94.8) fl MCH (25.6-32.2) pg MCHC (32.2-35.5) g/dl RDW Std Deviation (36.4-46.3) fL Plt Count (182-369) K/mm3 MPV (9.4-12.3) fl POC Glucose 106 H 80 46 L (70-105) mg/dL 05/20/20 05/20/20 05/20/20 Range/Units 14:13 18:04 22:18 WBC (3.98-10.04) K/mm3 RBC (3.98-5.22) M/mm3 Hgb (11.2-15.7) gm/dl Hct (34.1-44.9) % MCV (79.4-94.8) fl MCH (25.6-32.2) pg MCHC (32.2-35.5) g/dl RDW Std Deviation (36.4-46.3) fL Plt Count (182-369) K/mm3 MPV (9.4-12.3) fl POC Glucose 113 H 159 H 98 (70-105) mg/dL 05/21/20 05/21/20 05/21/20 Range/Units 00:12 04:09 04:24 WBC 3.08 L (3.98-10.04) K/mm3 RBC 3.05 L (3.98-5.22) M/mm3 Hgb 8.2 L (11.2-15.7) gm/dl Hct 27.0 L (34.1-44.9) % MCV 88.5 D (79.4-94.8) fl MCH 26.9 (25.6-32.2) pg MCHC 30.4 L (32.2-35.5) g/dl RDW Std Deviation 58.6 H (36.4-46.3) fL Plt Count 164 L (182-369) K/mm3 MPV 11.2 (9.4-12.3) fl POC Glucose 111 H 94 (70-105) mg/dL Med Orders - Current: Current Medications Albuterol/Ipratropium (Duoneb 3.0-0.5 Mg/3 Ml) 3 ml NEB Q4H PRN PRN Reason: Shortness Of Breath/wheezing Aripiprazole (Abilify) 2 mg PO DAILY [facility] Last Admin: 05/20/20 11:31 Dose: 2 mg Documented by: Bisacodyl (Dulcolax) 5 mg PO DAILY PRN PRN Reason: Constipation Chlorthalidone (Chlorthalidone) 25 mg PO DAILY [facility] Clonazepam (Klonopin) 1 mg PO TID@0900,1500,1900 [facility] Last Admin: 05/20/20 18:57 Dose: 1 mg Documented by: Dextrose/Water (Dextrose 50% In Water) 50 ml IVPUSH ASDIRECTED PRN PRN Reason: Hypoglycemia Dextrose/Water (Dextrose 50% In Water) 25 ml IVPUSH ASDIRECTED PRN PRN Reason: Hypoglycemia Last Admin: 05/20/20 14:01 Dose: 25 ml Documented by: Divalproex Sodium (Depakote) 500 mg PO BID [facility] Last Admin: 05/20/20 20:20 Dose: 500 mg Documented by: Docusate Sodium (Colace) 100 mg PO BID PRN PRN Reason: Constipation Gabapentin (Neurontin) 600 mg PO TID [facility] Last Admin: 05/20/20 20:20 Dose: 600 mg Documented by: Heparin Sodium (Porcine) (Heparin Sodium) 5,000 units SUBCUT Q8H [facility] Last Admin: 05/21/20 05:09 Dose: 5,000 units Documented by: Hydromorphone HCl (Dilaudid) 0.25 mg IVPUSH Q2H PRN PRN Reason: Pain (severe 7-10) Last Admin: 05/20/20 21:06 Dose: 0.25 mg Documented by: Dextrose/Sodium Chloride (Dextrose 5%-Normal Saline) 1,000 mls @ 250 mls/hr IV ASDIRECTED [facility] Last Admin: 05/21/20 06:43 Dose: 250 mls/hr Documented by: Promethazine HCl 12.5 mg/ (Sodium Chloride) 50.5 mls @ 100 mls/hr IV Q6H PRN PRN Reason: Nausea/Vomiting Norepinephrine Bitartrate 4 mg (/ Dextrose/Water) 250 mls @ 7.5 mls/hr IV TITRATE [facility]; Protocol Ketorolac Tromethamine (Toradol) 30 mg IVPUSH Q6H PRN PRN Reason: Pain (moderate 4-6) Last Admin: 05/21/20 02:57 Dose: 30 mg Documented by: Midodrine (Midodrine) 5 mg PO TIDAC PRN PRN Reason: Hypotension Last Admin: 05/19/20 22:05 Dose: 5 mg Documented by: Miscellaneous Information (Remove Patch) 1 ea TRDERM DAILY [facility] Last Admin: 05/20/20 08:11 Dose: 1 ea Documented by: Nicotine (Habitrol) 14 mg TRDERM DAILY [facility] Last Admin: 05/20/20 08:10 Dose: 14 mg Documented by: Acarbose 25 Mg Own (Med) 0 each PO TIDMEALS [facility] Ondansetron HCl (Zofran) 4 mg IV Q6H PRN PRN Reason: Nausea/Vomiting Last Admin: 05/20/20 21:08 Dose: 4 mg Documented by: Polyethylene Glycol (Miralax) 17 gm PO DAILY PRN PRN Reason: Constipation Senna/Docusate Sodium (Senna Plus) 1 tab PO BID PRN PRN Reason: Constipation Sertraline HCl (Zoloft) 100 mg PO DAILY [facility] Sumatriptan Succinate (Imitrex) 100 mg PO ASDIRECTED PRN PRN Reason: Headache Last Admin: 05/20/20 21:03 Dose: 100 mg Documented by: Trazodone HCl (Trazodone) 100 mg PO BEDTIME [facility] Last Admin: 05/20/20 20:20 Dose: 100 mg Documented by: Zolpidem Tartrate (Ambien) 5 mg PO BEDTIME PRN PRN Reason: Sleep Discontinued Medications Acetaminophen (Tylenol) 650 mg PO NOW STA Stop: 05/19/20 17:46 Last Admin: 05/19/20 17:48 Dose: 650 mg Documented by: Clonazepam (Klonopin) 1 mg PO BEDTIME ONE Stop: 05/19/20 23:31 Last Admin: 05/20/20 01:51 Dose: Not Given Documented by: Clonazepam (Klonopin) 1 mg PO ONETIME ONE Stop: 05/20/20 01:46 Last Admin: 05/20/20 01:51 Dose: 1 mg Documented by: Clonazepam (Klonopin) 1 mg PO TID [facility] Last Admin: 05/20/20 14:02 Dose: 1 mg Documented by: Divalproex Sodium (Depakote) 500 mg PO ONETIME ONE Stop: 05/19/20 22:53 Last Admin: 05/20/20 01:51 Dose: Not Given Documented by: Divalproex Sodium (Depakote) 500 mg PO ONETIME ONE Stop: 05/20/20 01:46 Last Admin: 05/20/20 01:50 Dose: 500 mg Documented by: Gabapentin (Neurontin) 600 mg PO BEDTIME ONE Stop: 05/20/20 22:54 Dextrose/Sodium Chloride (Dextrose 5%-Normal Saline) 1,000 mls @ 500 mls/hr IV ASDIRECTED [facility] Last Infusion: 05/19/20 17:41 Dose: 999 mls/hr Documented by: Potassium Chloride 10 meq/ (Premix) 100 mls @ 100 mls/hr IV Q1H [facility] Stop: 05/19/20 23:29 Last Admin: 05/20/20 00:41 Dose: 100 mls/hr Documented by: Magnesium Sulfate/Dextrose 1 (gm/ Premix) 100 mls @ 100 mls/hr IV Q1H [facility] Stop: 05/19/20 21:29 Last Admin: 05/20/20 04:28 Dose: 100 mls/hr Documented by: Sodium Chloride (Normal Saline) 1,000 mls @ 75 mls/hr IV ASDIRECTED [facility] Stop: 05/20/20 08:34 Sodium Chloride (Normal Saline) 500 mls @ 999 mls/hr IV .BOLUS ONE Stop: 05/19/20 23:31 Last Admin: 05/19/20 23:38 Dose: 999 mls/hr Documented by: Sodium Chloride (Normal Saline) 500 mls @ 999 mls/hr IV .BOLUS ONE Stop: 05/20/20 00:10 Last Admin: 05/19/20 23:50 Dose: 999 mls/hr Documented by: Trazodone HCl (Trazodone) 100 mg PO ONETIME ONE Stop: 05/19/20 22:53 Last Admin: 05/20/20 01:51 Dose: Not Given Documented by: Trazodone HCl (Trazodone) 100 mg PO ONETIME ONE Stop: 05/20/20 01:46 Last Admin: 05/20/20 02:11 Dose: 100 mg Documented by: - Exam General: Alert, Oriented, Cooperative, No Acute Distress HEENT: Pupils Equal, Pupils Reactive, EOMI, Mucous Membr. Moist/[place] Neck: Supple Lungs: Clear to Auscultation, Normal Respiratory Effort Cardiovascular: Regular Rate, Regular Rhythm GI/Abdominal Exam: Normal Bowel Sounds, Soft, Non-Tender, No Organomegaly, No Distention, No Abnormal Bruit (Female) Exam: Deferred Back Exam: Normal Inspection, Decreased Range of Motion Extremities: Normal Inspection, Normal Range of Motion, Non-Tender, No Pedal Edema, Normal Capillary Refill Skin: Warm, Dry, Intact Neurological: No New Focal Deficit, Normal Gait Psy/Mental Status: Alert, Normal Affect, Normal Mood Sepsis Event Note - Evaluation Sepsis Screening Result: No Definite Risk - Focused Exam Vital Signs: Vital Signs Temp Pulse Resp BP Pulse Ox 05/21/20 04:00 36.4 C 63 14 93/54 L 94 L 05/20/20 20:00 36.8 C 76 18 135/76 97 Date Exam was Performed: 05/21/20 Time Exam was Performed: 10:08 - Problem List Review Problem List Initiated/Reviewed/Updated: Yes - My Orders Last 24 Hours: My Active Orders 05/20/20 09:00 Nicotine [Habitrol] 14 mg TRDERM DAILY 05/20/20 09:42 SUMAtriptan [Imitrex] 100 mg PO ASDIRECTED PRN 05/20/20 10:49 DC Denis Catheter [Urinary Catheter Removal] [RC] PER UNIT ROUTINE 05/20/20 11:30 ARIPiprazole [Abilify] 2 mg PO DAILY 05/20/20 15:00 Gabapentin [Neurontin] 600 mg PO TID 05/20/20 17:55 Patient Status [ADT] Routine 05/20/20 19:00 ClonazePAM [KlonoPIN] 1 mg PO TID@0900,1500,1900 05/20/20 21:00 Divalproex Sodium [Depakote] 500 mg PO BID traZODone 100 mg PO BEDTIME 05/21/20 04:24 BASIC METABOLIC PANEL,BMP [CHEM] AM MAGNESIUM [CHEM] AM 05/21/20 07:00 Non-Formulary Medication [NF Drug] 0 each PO TIDMEALS 05/21/20 09:00 Chlorthalidone 25 mg PO DAILY Sertraline [Zoloft] 100 mg PO DAILY 05/22/20 05:11 BASIC METABOLIC PANEL,BMP [CHEM] AM MAGNESIUM [CHEM] AM 05/24/20 07:00 CBC W/O DIFF,HEMOGRAM [HEME] MOTH@69905/28/20 07:00 CBC W/O DIFF,HEMOGRAM [HEME] MOTH@69905/31/20 07:00 CBC W/O DIFF,HEMOGRAM [HEME] MOTH@69906/04/20 07:00 CBC W/O DIFF,HEMOGRAM [HEME] MOTH@69906/07/20 07:00 CBC W/O DIFF,HEMOGRAM [HEME] MOTH@699 - Plan Plan:: Assessment: This is a 60 yo with past medical hx/o Impaired Vision, AR, HTN, Hx/o Blood Clots/PE, GERD, PUD, Hx/o Peritonitis, Gastric Ulcer, Recurrent UTI, OA, Migraines, Seizure Disorder, Substance Abuse, DM2, Post-gastric bypass hypog lycemia, Gastric surgery in 2007 with resulted dumping syndrome, Anemia, RILEY, 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 Acute: * Hypoglycemia. Acute on Chronic. Has had hx/o hypoglycemia as low as 37. She used to be diabetic but developed dumping syndrome post gastric by pass. She presented to ED with BS at low as 66. She has since improved to 170s after receiving 1L of D5W. A1C of 5.30. BS is bet 90-low teens. However she is still on D5W infusion, despite adequate oral intake. Plan: Discontinue D5W, continue with recommended diet, and may consider going up on her peanut butter to 2 TBSP. Goal: BS at or > 200. * Normocytic, Normochromic Anemia. She presents with a Hgb level of 10.8, now 8.2 grams. Baseline is 8.3-11.9 grams. No report of active bleeding or melena. This is due to hemo-dilution. She received a total of 4L fluids for volume resuscitation. Will continue to monitor. * Nicotine dependence. Smokes half a pack a day. Counseled on smoking cessation. Nicotine patch daily. * Substance Abuse. UDS positive for THC. Counseled on non-medical marijuana use. * Hypocalcemia. She presents with normal level but now at 7.6, likely due to calcium dilution and inadequate intake. Expect to improve once she starts eating. 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 * Back Sore. She carries a hx/o Chronic Back Pain. Encourage to ambulate and OOB. * Migraine SIERRA. This is chronic to her. Will resume home medication. * Patient has sepsis, present on admission. His UA grew E. Coli. Has improved. * Complex UTI. She had profound hypotension on admission. Will start her on Bactrim 1 DS BID for treatment. Resolved: * Hypokalemia. She presents with a K level of 2.6. This is likely 2/2 inadequate intake also diuresis with lasix. Now within normal range. * Hypochloremia. Cl of 86. Again, likely due to diuresis. Encourage to eat. Now within normal range. * Lactic Acidosis. She has no signs of systemic infection. She is a little low on WBC but afebrile. This is likely due to starvation ketosis. She has received 1L of fluids in ED. Now within normal range. * Hypomagnesemia. She presents with a Mg level of 1.7. Now within normal range. * SIRS: Mild Leukocytopenia, hypotensive, elevated lactic acids but no clear source. Negative COVID -19 screening and UA. * Euvolemic Hypo-osmolar Hyponatremia. She presents with a Na of 129, now 131. She is on a lot of psych medications and also on chlorthalidone and zoloft which are known to lower sodium. Continue to hold chlorthalidone. Now, resolved. * Profound Hypotension. She presents with a BP as low at 82/52 mmHg. Has received 4lL of fluids for volume resuscitation. She is now within normal range. Chronic: Impaired Vision, AR, HTN, Hx/o Blood Clots/PE, GERD, PUD, Hx/o Per itonitis, Gastric Ulcer, Recurrent UTI, OA, Migraines, Seizure Disorder, Substance Abuse, DM2, Post-gastric bypass hypoglycemia, Gastric surgery in 2007 with resulted dumping syndrome, Anemia, RILEY, AT3 Deficiency, Anxiety, Bipolar Disorder, Depression, and Hx/o Psych inpatient treatment. Plan: Continue current treatment. Accu-check Q4H. Regular diet with complex carb-per patient low carb and high protein diet. She can eat whatever to include complex carb. DVT/GI prophylaxis. Dietary consult for hypoglycemia diet. Code status is full. Possible discharge tomorrow. SW/CM to look at her home situ ation, she will be moving out home and she will be on her own. Given her hx/o chronic hypoglycemia, I advised her to make sure somebody will check on her routinely. Obtained notes from [place] with the following recommendations on 03/27/2020: * Acarbose 25 mg prior to meals, this can be titrated up-will resume home medication * Director [employer] to see outpatient * 1 Table spoon of peanut butter before meals or snack * Eat protein and healthy fat first, limit carb and sugars * Treat low blood sugars with high protein/fat vs simple carbs
[2020-05-21] MEDS: SUMAtriptan 50 MG Tab PO PRN (07:28)
[2020-05-21] MEDS: Chlorthalidone 25 MG Tab PO SCH (08:32)
[2020-05-21] MEDS: ClonazePAM 1 MG Tab PO SCH ×3 (08:33→18:40)
[2020-05-21] MEDS: Gabapentin 600 MG Tab PO SCH ×3 (08:33→19:59)
[2020-05-21] MEDS: Divalproex Sodium Delayed-Release 500 MG Tab.CR PO SCH ×2 (08:33→19:59)
[2020-05-21] MEDS: Sertraline 50 MG Tab PO SCH (08:33)
[2020-05-21] MEDS: REMOVE NICOTINE TRDERM SCH (08:42)
[2020-05-21] MEDS: Nicotine 14 MG/24 Hr Patch TRDERM SCH (08:43)
[2020-05-21] MEDS: ACARBOSE 25 MG PO SCH ×4 (09:30→17:36)
[2020-05-21] MEDS: 50% Dextrose in Water 50 ML Syringe IVPUSH PRN (10:14)
[2020-05-21] MEDS ORDERED: Sulfamethoxazole/Trimethoprim 800-160 MG Tab PO ONE (11:31)
[2020-05-21] MEDS: Sulfamethoxazole/Trimethoprim 800-160 MG Tab PO SCH (19:59)
[2020-05-21] MEDS: traZODone 50 MG Tab PO SCH (19:59)
[2020-05-21] MEDS: HYDROmorphone 0.5 MG/0.5 ML Syringe IVPUSH PRN (20:32)
[2020-05-22 03:11] VITALS: PULSE 67
[2020-05-22] MEDS: Heparin Sodium 5,000 Units/ML Vial SUBCUT SCH ×2 (03:27→11:34)
[2020-05-22] MEDS: HYDROmorphone 0.5 MG/0.5 ML Syringe IVPUSH PRN (04:09)
[2020-05-22] MEDS: ACARBOSE 25 MG PO SCH ×2 (06:04→11:34)
[2020-05-22] MEDS: Divalproex Sodium Delayed-Release 500 MG Tab.CR PO SCH (08:01)
[2020-05-22] MEDS: Sertraline 50 MG Tab PO SCH (08:01)
[2020-05-22] MEDS: Gabapentin 600 MG Tab PO SCH (08:01)
[2020-05-22] MEDS: Sulfamethoxazole/Trimethoprim 800-160 MG Tab PO SCH (08:02)
[2020-05-22] MEDS: Nicotine 14 MG/24 Hr Patch TRDERM SCH (08:02)
[2020-05-22] MEDS: Chlorthalidone 25 MG Tab PO SCH (08:02)
[2020-05-22] MEDS: ClonazePAM 1 MG Tab PO SCH (08:02)
[2020-05-22] MEDS: Ketorolac 30 MG/ML SDV IVPUSH PRN (08:08)
[2020-05-22] MEDS: REMOVE NICOTINE TRDERM SCH (08:11)
[2020-05-22 08:12] VITALS: BP 135/86
--- NOTE | 2020-05-22 11:23 | PCM.DCSUM1 ---
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 She used to be diabetic but resolved with gastric by pass. She is no longer on medications for it. However she suffers intermittent diarrhea and or constipation from time to time due to dumping syndrome. She states that she suffers chronic low blood sugar. She has been as low as in the 30s in the past. Along with her low sugar, she has had issues with e-lytes abnormalities in the past as well. Patient denies any changes on her home routine regimen. She denies having fevers or chills. No signs of upper respiratory symptoms. Her initial work up shows a CBC remarkable for WBC of 3.54, RBC of 3.96, Hgb of 10.8, and Hct of 33.1. Her chemistry is significant for Na of 124, K of 2.6, Cl of 86, BS of 66, Serum Osm of 259, LA of 2.3, Mg of 1.7 and proBNP of 422. Her Albumin, Troponin, Vit B12 and TSH are all within normal limits. Her UA is negative fo UTI. Her UDS is positive for THC. Patient received initial treatment in ED before she was sent to the unit for further management. Assessment: This is a 60 yo with past medical hx/o Impaired Vision, AR, HTN, Hx/o Blood Clots/PE, GERD, PUD, Hx/o Peritonitis, Gastric Ulcer, Recurrent UTI, OA, Migraines, Seizure Disorder, Substance Abuse, DM2, Post-gastric bypass hypoglyc emia, Gastric surgery in 2007 with resulted dumping syndrome, Anemia, RILEY, 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 Acute: * SIRS: Mild Leukocytopenia, hypotensive, elevated lactic acids but no clear source. Pending for COVID -19 screening and UA. * Hypoglycemia. Acute on Chronic. Has had hx/o hypoglycemia as low as 37. She used to be diabetic but developed dumping syndrome post gastric by pass. She presented to ED with BS at low as 66. She has since improved to 170s after receiving 1L of D5W. Plan: We will continue D5W infusion. Goal Bs > at > 200. * Hypotension. He presents with a BP as low at 82/52 mmHg. Has received 1L of fluids so far. Continue with volume resuscitation. * Normocytic, Normochromic Anemia. She presents with a Hgb level of 10.8. Baseline is 8.3-11.9 grams. No report of active bleeding or melena. Will monitor. * Euvolemic Hypo-osmolar Hyponatremia. She presents with a Na of 129. She is on a lot of psych medications and also on chlorthalidone and zoloft which are known to lower sodium. * Hypokalemia. She presents with a K level of 2.6. This is likely 2/2 inadequate intake also diuresis with lasix. Will replete and monitor. * Hypochloremia. Cl of 86. Again, likely due to diuresis. Encourage to eat. * Lactic Acidosis. She has no signs of systemic infection. She is a little low on WBC but afebrile. This is likely due to starvation ketosis. She has received 1L of fluids in ED. Will repeat LA level. * Hypomagnesemia. She presents with a Mg level of 1.7. Will replete and monitor. * Nicotine dependence. Smokes half a pack a day. Counseled on smoking cessation. Nicotine patch daily. * Substance Abuse. UDS positive for THC. Counseled on non-medical marijuana use. Chronic: Impaired Vision, AR, HTN, Hx/o Blood Clots/PE, GERD, PUD, Hx/o Peritonitis, Gastric Ulcer, Recurrent UTI, OA, Migraines, Seizure Disorder, Substance Abuse, DM2, Post-gastric bypass hypoglycemia, Gastric surgery in 2007 with resulted dumping syndrome, Anemia, RILEY, AT3 Deficiency, Anxiety, Bipolar Disorder, Depression, and Hx/o Psych inpatient treatment Plan: Admit to ICU. Resume home medications once verified. Hold diuretic. D5W for hydration and hypoglycemia. Accu-check Q4H. Regular diet. A1C level. She can eat whatever to include complex carb. Will obtain chart from [facility]. DVT/GI prophylaxis. Code status is full. Critical Care time spent: 40 mins Diagnosis: Stroke: No - Discharge Data Discharge Date: 05/22/20 Discharge Disposition: Home, Self-Care 01 Condition: Good - Referral to Home Health Primary Care Physician: Clifford Werner MD - Discharge Diagnosis/Problem(s) (1) UTI (urinary tract infection) SNOMED Code(s): 36329391 ICD Code: N39.0 - URINARY TRACT INFECTION, SITE NOT SPECIFIED Status: Acute (2) Hypokalemia due to inadequate potassium intake SNOMED Code(s): 76542784 ICD Code: E87.6 - HYPOKALEMIA Status: Acute (3) Hyponatremia with decreased serum osmolality SNOMED Code(s): 351132135 ICD Code: E87.1 - HYPO-OSMOLALITY AND HYPONATREMIA Status: Acute (4) Low blood pressure reading SNOMED Code(s): 368341624 ICD Code: R03.1 - NONSPECIFIC LOW BLOOD-PRESSURE READING Status: Acute (5) Reactive hypoglycemia SNOMED Code(s): 272191 ICD Code: E16.1 - OTHER HYPOGLYCEMIA Status: Acute - Patient Summary/Data Consults: Consultations 05/19/20 19:04 Consult to Supervisor [employer] [CONS] Routine 05/21/20 08:10 Consult to Dietary [Consult to Supervisor [employer]] [CONS] Routine Hospital Course: Patient was started on D5 and had multiple boluses of D50. Her director compliance from [facility] when she was seen in March was consulted and he recommended increasing her acarbose to 50 mg before each meal. He also recommended using peanut butter with juice if she has low blood sugars to slow absorption. She was seen by a dietitian and she was educated on a low concentrated carbohydrate diet. She was discharged in good condition. Patient did have an episode of hypotension that resolved with fluid resuscitation. Electrolyte abnormalities also resolved. - Patient Instructions Diet: Limited Carb (Follow recommendations of dietitian and endocrinology.) Activity: As Tolerated Driving: May Drive Today, Do Not Drive Showering/Bathing: May Shower Other/Special Instructions: Follow up with PCP next week. You should eat frequent meals with fat, protein, and complex carbohydrates. Treat low blood sugars with a combination of peanut butter or other nut butter and juice. Do not otherwise take in any concentrated sweets or refined carbohydrates. - Discharge Plan *PRESCRIPTION DRUG MONITORING PROGRAM REVIEWED*: Not Applicable *COPY OF PRESCRIPTION DRUG MONITORING REPORT IN PATIENT ROSA: Not Applicable Prescriptions/Med Rec: Sulfamethoxazole/Trimethoprim [Septra DS] 1 tab PO BID #6 tablet Home Medications: Home Meds Gabapentin [Neurontin] 600 mg PO TID 06/22/19 [History] Chlorthalidone 25 mg PO DAILY 01/27/20 [History] Divalproex Sodium [Depakote] 500 mg PO BID 01/27/20 [History] clonazePAM [Clonazepam] 1 mg PO TID 02/29/20 [History] ARIPiprazole [Abilify] 2 mg PO DAILY #30 tablet 03/02/20 [Rx] Sertraline [Zoloft] 100 mg PO DAILY #30 tablet 03/02/20 [Rx] traZODone HCl [Trazodone HCl] 100 mg PO BEDTIME #30 tablet 03/02/20 [Rx] SUMAtriptan [Imitrex] 100 mg PO ASDIRECTED PRN #10 tablet MDD 200 03/17/20 [Rx] Patient's Own Medication [Ptom] 0 each PO TIDMEALS each 05/22/20 [Rx] Sulfamethoxazole/Trimethoprim [Septra DS] 1 tab PO BID #6 tablet 05/22/20 [Rx] Patient Handouts: Hypomagnesemia, Urinary Tract Infection, Adult, Steps to Quit Smoking Forms: ED Department Discharge Referrals: [facility], smoking cessation [Other] Clifford Werner MD [Primary Care Provider] - 05/28/20 2:30 pm - Discharge Summary/Plan Comment DC Time >30 min.: Yes Discharge Summary/Plan Comment: Discharged home in good condition. Follow-up with primary care provider next week. - General Info Date of Service: 05/22/20 Admission Dx/Problem (Free Text: Hypoglycemia Subjective Update: Patient doing well without any complications. She is feeling good would like to go home. Functional Status: Reports: Pain Controlled - Review of Systems General: Reports: No Symptoms HEENT: Reports: No Symptoms Pulmonary: Reports: No Symptoms Cardiovascular: Reports: No Symptoms Gastrointestinal: Reports: No Symptoms Musculoskeletal: Reports: No Symptoms Psychiatric: Reports: No Symptoms - Patient Data Vitals - Most Recent: Last Vital Signs Temp 97.7 F 05/22/20 08:12 Pulse 67 05/22/20 08:12 Resp 14 05/22/20 08:12 BP 135/86 05/22/20 08:12 Pulse Ox 97 05/22/20 08:12 Orthostatic Blood Pressure [ 82/52 Standing] Orthostatic Blood Pressure [ 89/60 Supine] Weight - Most Recent: 87.135 kg I&O - Last 24 hours: Intake & Output 05/21/20 05/22/20 05/22/20 22:59 06:59 14:59 Intake Total 920 Balance 920 Lab Results - Last 24 hrs: Laboratory Results - last 24 hr 05/21/20 05/21/20 05/21/20 Range/Units 12:09 12:34 12:51 Sodium (136-145) mEq/L Potassium (3.5-5.1) mEq/L Chloride (98-107) mEq/L Carbon Dioxide (21-32) mEq/L Anion Gap (5-15) BUN (7-18) mg/dL Creatinine (0.55-1.02) mg/dL Est Cr Clr Drug Dosing mL/min Estimated GFR (MDRD) (>60) mL/min BUN/Creatinine Ratio (14-18) Glucose 98 (74-106) mg/dL POC Glucose 45 L 72 (70-105) mg/dL Calcium (8.5-10.1) mg/dL Magnesium (1.8-2.4) mg/dl 05/21/20 05/21/20 05/22/20 Range/Units 17:22 20:33 04:57 Sodium 137 (136-145) mEq/L Potassium 4.3 (3.5-5.1) mEq/L Chloride 104 (98-107) mEq/L Carbon Dioxide 26 (21-32) mEq/L Anion Gap 11.3 (5-15) BUN 13 (7-18) mg/dL Creatinine 1.0 (0.55-1.02) mg/dL Est Cr Clr Drug Dosing 59.63 mL/min Estimated GFR (MDRD) 57 (>60) mL/min BUN/Creatinine Ratio 13.0 L (14-18) Glucose 72 L (74-106) mg/dL POC Glucose 94 95 (70-105) mg/dL Calcium 8.5 (8.5-10.1) mg/dL Magnesium 2.1 (1.8-2.4) mg/dl 05/22/20 Range/Units 07:44 Sodium (136-145) mEq/L Potassium (3.5-5.1) mEq/L Chloride (98-107) mEq/L Carbon Dioxide (21-32) mEq/L Anion Gap (5-15) BUN (7-18) mg/dL Creatinine (0.55-1.02) mg/dL Est Cr Clr Drug Dosing mL/min Estimated GFR (MDRD) (>60) mL/min BUN/Creatinine Ratio (14-18) Glucose (74-106) mg/dL POC Glucose 64 L (70-105) mg/dL Calcium (8.5-10.1) mg/dL Magnesium (1.8-2.4) mg/dl ARELIS Results - Last 24 hrs: Microbiology 05/19/20 16:15 Urine Culture - Final Urine, Clean Catch Escherichia Coli Med Orders - Current: Current Medications Albuterol/Ipratropium (Duoneb 3.0-0.5 Mg/3 Ml) 3 ml NEB Q4H PRN PRN Reason: Shortness Of Breath/wheezing Aripiprazole (Abilify) 2 mg PO DAILY [facility] Last Admin: 05/22/20 08:01 Dose: 2 mg Documented by: Bisacodyl (Dulcolax) 5 mg PO DAILY PRN PRN Reason: Constipation Chlorthalidone (Chlorthalidone) 25 mg PO DAILY [facility] Last Admin: 05/22/20 08:02 Dose: 25 mg Documented by: Clonazepam (Klonopin) 1 mg PO TID@0900,1500,1900 [facility] Last Admin: 05/22/20 08:02 Dose: 1 mg Documented by: Dextrose/Water (Dextrose 50% In Water) 50 ml IVPUSH ASDIRECTED PRN PRN Reason: Hypoglycemia Dextrose/Water (Dextrose 50% In Water) 25 ml IVPUSH ASDIRECTED PRN PRN Reason: Hypoglycemia Last Admin: 05/21/20 10:14 Dose: 25 ml Documented by: Divalproex Sodium (Depakote) 500 mg PO BID [facility] Last Admin: 05/22/20 08:01 Dose: 500 mg Documented by: Docusate Sodium (Colace) 100 mg PO BID PRN PRN Reason: Constipation Gabapentin (Neurontin) 600 mg PO TID [facility] Last Admin: 05/22/20 08:01 Dose: 600 mg Documented by: Heparin Sodium (Porcine) (Heparin Sodium) 5,000 units SUBCUT Q8H [facility] Last Admin: 05/22/20 03:27 Dose: 5,000 units Documented by: Hydromorphone HCl (Dilaudid) 0.25 mg IVPUSH Q2H PRN PRN Reason: Pain (severe 7-10) Last Admin: 05/22/20 04:09 Dose: 0.25 mg Documented by: Dextrose/Sodium Chloride (Dextrose 5%-Normal Saline) 1,000 mls @ 250 mls/hr IV ASDIRECTED [facility] Last Infusion: 05/21/20 07:55 Dose: 0 mls/hr Documented by: Promethazine HCl 12.5 mg/ (Sodium Chloride) 50.5 mls @ 100 mls/hr IV Q6H PRN PRN Reason: Nausea/Vomiting Ketorolac Tromethamine (Toradol) 30 mg IVPUSH Q6H PRN PRN Reason: Pain (moderate 4-6) Last Admin: 05/22/20 08:08 Dose: 30 mg Documented by: Miscellaneous Information (Remove Patch) 1 ea TRDERM DAILY [facility] Last Admin: 05/22/20 08:11 Dose: 1 ea Documented by: Nicotine (Habitrol) 14 mg TRDERM DAILY [facility] Last Admin: 05/22/20 08:02 Dose: 14 mg Documented by: Ondansetron HCl (Zofran) 4 mg IV Q6H PRN PRN Reason: Nausea/Vomiting Last Admin: 05/20/20 21:08 Dose: 4 mg Documented by: Patient's Own Medication Acarbose 25 Mg Tabs 0 each PO TIDMEALS [facility] Last Admin: 05/22/20 06:04 Dose: 2 each Documented by: Polyethylene Glycol (Miralax) 17 gm PO DAILY PRN PRN Reason: Constipation Senna/Docusate Sodium (Senna Plus) 1 tab PO BID PRN PRN Reason: Constipation Sertraline HCl (Zoloft) 100 mg PO DAILY [facility] Last Admin: 05/22/20 08:01 Dose: 100 mg Documented by: Sumatriptan Succinate (Imitrex) 100 mg PO ASDIRECTED PRN PRN Reason: Headache Last Admin: 05/21/20 07:28 Dose: 100 mg Documented by: Trazodone HCl (Trazodone) 100 mg PO BEDTIME [facility] Last Admin: 05/21/20 19:59 Dose: 100 mg Documented by: Trimethoprim/Sulfamethoxazole (Septra Ds) 1 tab PO BID [facility] Last Admin: 05/22/20 08:02 Dose: 1 tab Documented by: Zolpidem Tartrate (Ambien) 5 mg PO BEDTIME PRN PRN Reason: Sleep Last Admin: 05/21/20 19:59 Dose: 5 mg Documented by: Discontinued Medications Acetaminophen (Tylenol) 650 mg PO NOW STA Stop: 05/19/20 17:46 Last Admin: 05/19/20 17:48 Dose: 650 mg Documented by: Clonazepam (Klonopin) 1 mg PO BEDTIME ONE Stop: 05/19/20 23:31 Last Admin: 05/20/20 01:51 Dose: Not Given Documented by: Clonazepam (Klonopin) 1 mg PO ONETIME ONE Stop: 05/20/20 01:46 Last Admin: 05/20/20 01:51 Dose: 1 mg Documented by: Clonazepam (Klonopin) 1 mg PO TID [facility] Last Admin: 05/20/20 14:02 Dose: 1 mg Documented by: Divalproex Sodium (Depakote) 500 mg PO ONETIME ONE Stop: 05/19/20 22:53 Last Admin: 05/20/20 01:51 Dose: Not Given Documented by: Divalproex Sodium (Depakote) 500 mg PO ONETIME ONE Stop: 05/20/20 01:46 Last Admin: 05/20/20 01:50 Dose: 500 mg Documented by: Gabapentin (Neurontin) 600 mg PO BEDTIME ONE Stop: 05/20/20 22:54 Dextrose/Sodium Chloride (Dextrose 5%-Normal Saline) 1,000 mls @ 500 mls/hr IV ASDIRECTED [facility] Last Infusion: 05/19/20 17:41 Dose: 999 mls/hr Documented by: Potassium Chloride 10 meq/ (Premix) 100 mls @ 100 mls/hr IV Q1H [facility] Stop: 05/19/20 23:29 Last Admin: 05/20/20 00:41 Dose: 100 mls/hr Documented by: Magnesium Sulfate/Dextrose 1 (gm/ Premix) 100 mls @ 100 mls/hr IV Q1H [facility] Stop: 05/19/20 21:29 Last Admin: 05/20/20 04:28 Dose: 100 mls/hr Documented by: Sodium Chloride (Normal Saline) 1,000 mls @ 75 mls/hr IV ASDIRECTED JODI Stop: 05/20/20 08:34 Sodium Chloride (Normal Saline) 500 mls @ 999 mls/hr IV .BOLUS ONE Stop: 05/19/20 23:31 Last Admin: 05/19/20 23:38 Dose: 999 mls/hr Documented by: Norepinephrine Bitartrate 4 mg (/ Dextrose/Water) 250 mls @ 7.5 mls/hr IV TITRATE JODI; Protocol Sodium Chloride (Normal Saline) 500 mls @ 999 mls/hr IV .BOLUS ONE Stop: 05/20/20 00:10 Last Admin: 05/19/20 23:50 Dose: 999 mls/hr Documented by: Midodrine (Midodrine) 5 mg PO TIDAC PRN PRN Reason: Hypotension Last Admin: 05/19/20 22:05 Dose: 5 mg Documented by: Acarbose 25 Mg Own (Med) 0 each PO TIDMEALS [facility] Last Admin: 05/21/20 13:12 Dose: 2 each Documented by: Trazodone HCl (Trazodone) 100 mg PO ONETIME ONE Stop: 05/19/20 22:53 Last Admin: 05/20/20 01:51 Dose: Not Given Documented by: Trazodone HCl (Trazodone) 100 mg PO ONETIME ONE Stop: 05/20/20 01:46 Last Admin: 05/20/20 02:11 Dose: 100 mg Documented by: Trimethoprim/Sulfamethoxazole (Septra Ds) 1 tab PO ONETIME ONE Stop: 05/21/20 11:32 Last Admin: 05/21/20 12:16 Dose: 1 tab Documented by: - Exam HEENT: Reports: Pupils Equal, Mucous Membr. Moist/[place] Neck: Reports: Supple Lungs: Reports: Clear to Auscultation, Normal Respiratory Effort Cardiovascular: Reports: Regular Rate, Regular Rhythm GI/Abdominal Exam: Normal Bowel Sounds, Soft, Non-Tender, No Organomegaly, No Distention, No Abnormal Bruit, No Mass Extremities: Normal Inspection, Normal Range of Motion, Non-Tender, No Pedal Edema, Normal Capillary Refill Skin: Reports: Warm, Dry, Intact Neurological: Reports: No New Focal Deficit Psy/Mental Status: Reports: Alert, Normal Affect, Normal Mood
== END 2020-05-22 12:10 | disposition home or self-care (01) | DRG 872 ==
LOC: JD.ED 16:00 → JD.ICU 18:50
PROVIDERS: ADMIT Internal Medicine; ATTEND Internal Medicine
DX: A41.51 Sepsis due to Escherichia coli [E. coli] (principal); N39.0 Urinary tract infection, site not specified; E87.1 Hypo-osmolality and hyponatremia; E87.2 Acidosis; E11.649 Type 2 diabetes mellitus with hypoglycemia without coma; E87.6 Hypokalemia; I95.9 Hypotension, unspecified; H54.7 Unspecified visual loss; I35.1 Nonrheumatic aortic (valve) insufficiency; I10 Essential (primary) hypertension; K21.9 Gastro-esophageal reflux disease without esophagitis; M19.90 Unspecified osteoarthritis, unspecified site; G43.909 Migraine, unspecified, not intractable, without status migrainosus; G40.909 Epilepsy, unspecified, not intractable, without status epilepticus; K91.1 Postgastric surgery syndromes; Y83.9 Surgical procedure, unspecified as the cause of abnormal reaction of the patient, or of later complication, without mention of misadventure at the time of the procedure; E87.8 Other disorders of electrolyte and fluid balance, not elsewhere classified; F17.210 Nicotine dependence, cigarettes, uncomplicated; F41.9 Anxiety disorder, unspecified; Z20.828 Contact with and (suspected) exposure to other viral communicable diseases; D50.9 Iron deficiency anemia, unspecified; F31.9 Bipolar disorder, unspecified; F12.10 Cannabis abuse, uncomplicated; E83.51 Hypocalcemia; Z79.899 Other long term (current) drug therapy; Z87.11 Personal history of peptic ulcer disease; Z87.440 Personal history of urinary (tract) infections; Z98.84 Bariatric surgery status; Z88.1 Allergy status to other antibiotic agents; Z88.5 Allergy status to narcotic agent; Z88.8 Allergy status to other drugs, medicaments and biological substances; Z86.718 Personal history of other venous thrombosis and embolism; Z90.710 Acquired absence of both cervix and uterus
CPT/HCPCS: 36415; 51702; 71045; 71045-26; 80048; 80053; 80164; 80306; 81001; 82607; 82947; 82962; 83036; 83605; 83735; 83880; 83930; 84443; 84484; 85025; 85027; 86140; 87086; 87186; 93005; 93010; 96361; 96365; 96368; 96376; 99285; 99285-25; A9270-GY; J1170; J1644; J1885; J2405; J3475; J3480; J7030; J7042; U0002

== ENCOUNTER 2021-06-12 13:23 | Emergency (ER) | payer MEDICARE, MEDICAID ==
[2021-06-12 13:42] VITALS: BP 128/81; PULSE 60
--- NOTE | 2021-06-12 14:27 | CR ---
Chest: Portable view of the chest was obtained. Comparison: Prior chest x-ray of 05/19/20 and 01/27/20. Nodule is identified within the left lung base. Uncertain if this represents nipple density or actual nodule. Lucency is seen along the right lateral chest which I believe is artifact. Slight nodular density is noted within the right lung base which overlaps the seventh rib. Uncertain if this is parenchymal or represents sclerosis from healing rib fracture. Lungs otherwise are clear. Heart size and mediastinum are normal. Slight scoliosis is noted within the spine. Impression: 1. Nodule within left lung base. Uncertain if this is nipple density or represents actual parenchymal nodule. 2. Nodule overlying the right seventh rib posteriorly either due to sclerosis from healing rib fracture or pulmonary nodule. 3. Other incidental findings as noted above. For more complete evaluation, please consider noncontrast chest CT. Diagnostic code #3
--- NOTE | 2021-06-12 16:16 | CT ---
CT chest Technique: Multiple axial sections through the chest were obtained. Intravenous contrast was not utilized. Reconstructed coronal and sagittal images were obtained. Comparison: Prior chest x-ray performed earlier on the same day (2:10 PM) and prior chest CT study of 07/31/18. Findings: Lung window settings were reviewed which shows emphysematous change. Mild linear scarring is seen within both lung bases. Lungs otherwise are clear. No pulmonary nodule is seen. Nodule on chest x-ray within the left lung correlates to nipple density. Thoracic aorta shows atherosclerotic calcification. No aneurysm is seen. Mediastinum shows no adenopathy. Mild coronary artery calcification is seen. No pericardial thickening is seen. Previous stomach surgery is noted. Prior cholecystectomy is noted. Bone window settings were reviewed. Mild scattered degenerative change is seen within the spine. Old right-sided rib fracture is noted which appears healed. No abnormal sclerosis is seen within the ribs. Impression: 1. Emphysematous change. No pulmonary nodules are noted. Slight scarring is seen within both lung bases. 2. Other findings which are nonacute as described above. Diagnostic code #2
--- NOTE | 2021-06-12 16:25 | EDM.PDOC ---
ED HPI GENERAL MEDICAL PROBLEM - General Chief Complaint: Respiratory Problem Stated Complaint: cough chills pain in lungs Time Seen by Provider: 06/12/21 13:37 Source of Information: Reports: Patient History Limitations: Reports: No Limitations - History of Present Illness INITIAL COMMENTS - FREE TEXT/NARRATIVE: The patient presents with chills, cough, congestion and chest tightness with cough. This started a couple days ago. She denies fever. She does not think she has COVID. She has not had it and never got immunized. She has no nausea, vomiting or abdominal pain. She does have decreased appetite. She has some mild shortness of breath. She does smoke. Onset: Gradual Duration: Day(s): Location: Reports: Chest Quality: Reports: Other (tightness) Severity: Mild Improves with: Reports: None Worsens with: Reports: None Associated Symptoms: Reports: Chest Pain, Cough, Fever/Chills, Shortness of Breath. Denies: Headaches, Nausea/Vomiting - Related Data Allergies Allergy/AdvReac Type Severity Reaction Status Date / Time cephalexin Allergy Severe Hives Verified 06/12/21 13:42 morphine Allergy Severe Itching Verified 06/12/21 13:42 lisinopril AdvReac Severe Muscle Verified 06/12/21 13:42 Aches venlafaxine [From Effexor] AdvReac Severe Paralysis Verified 06/12/21 13:42 Home Meds: Home Meds Gabapentin [Neurontin] 600 mg PO TID 06/22/19 [History] Chlorthalidone 25 mg PO DAILY 01/27/20 [History] Divalproex Sodium [Depakote] 500 mg PO BID 01/27/20 [History] clonazePAM [Clonazepam] 1 mg PO TID 02/29/20 [History] ARIPiprazole [Abilify] 2 mg PO DAILY #30 tablet 03/02/20 [Rx] Sertraline [Zoloft] 100 mg PO DAILY #30 tablet 03/02/20 [Rx] traZODone HCl [Trazodone HCl] 100 mg PO BEDTIME #30 tablet 03/02/20 [Rx] SUMAtriptan [Imitrex] 100 mg PO ASDIRECTED PRN #10 tablet MDD 200 03/17/20 [Rx] Patient's Own Medication [Ptom] 0 each PO TIDMEALS each 05/22/20 [Rx] Sulfamethoxazole/Trimethoprim [Septra DS] 1 tab PO BID #6 tablet 05/22/20 [Rx] Azithromycin [Zithromax] 250 mg PO DAILY #6 tab 06/12/21 [Rx] Codeine/Promethazine [Phenergan with Codeine] 5 - 10 ml PO Q6HR PRN #300 ml 06/12/21 [Rx] Past Medical History HEENT History: Reports: Allergic Rhinitis, Impaired Vision Other HEENT History: wears glasses, dentures Cardiovascular History: Reports: Blood Clots/VTE/DVT, Hypertension Respiratory History: Reports: PE Gastrointestinal History: Reports: GERD, PUD, Other (See Below) Other Gastrointestinal History: Peritonitis, gastric ulcer Genitourinary History: Reports: UTI, Recurrent 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 Social & Family History - Family History Family Medical History: No Pertinent Family History - Tobacco Use Tobacco Use Status *Q: Current Every Day Tobacco User Years of Tobacco use: 30 Packs/Tins Daily: 1 - Caffeine Use Caffeine Use: Reports: Coffee Caffeine Use Comment: unknown - Recreational Drug Use Recreational Drug Use: No - Living Situation & Occupation Living situation: Reports: (01/16/2020), with Family (Daughter + her 2 kids) Occupation: Disabled ED ROS GENERAL - Review of Systems Review Of Systems: See Below Constitutional: Reports: Chills, Malaise, Weakness. Denies: Fever HEENT: Reports: No Symptoms Respiratory: Reports: Shortness of Breath, Cough Cardiovascular: Reports: No Symptoms Endocrine: Reports: No Symptoms GI/Abdominal: Reports: No Symptoms : Reports: No Symptoms Musculoskeletal: Reports: No Symptoms ED EXAM, GENERAL - Physical Exam Exam: See Below Exam Limited By: No Limitations General Appearance: Alert, No Apparent Distress Ears: Normal External Exam Nose: Normal Inspection Head: Atraumatic, Normocephalic Neck: Normal Inspection Respiratory/Chest: No Respiratory Distress, Lungs Clear, Normal Breath Sounds Cardiovascular: Regular Rate, Rhythm, No Edema, No Murmur GI/Abdominal: Soft, Non-Tender, No Organomegaly, No Mass Back Exam: Normal Inspection Extremities: Normal Inspection Course - Vital Signs Last Recorded V/S: Last Vital Signs Temp 96.9 F 06/12/21 13:40 Pulse 60 06/12/21 13:40 Resp 16 06/12/21 13:40 BP 128/81 06/12/21 13:40 Pulse Ox 99 06/12/21 13:40 - Orders/Labs/Meds Orders: Active Orders 24 hr Category Date Time Status Cardiac Monitoring [RC] . DIRECTED Care 06/12/21 13:59 Active Labs: Laboratory Tests 06/12/21 06/12/21 06/12/21 Range/Units 13:45 14:13 14:13 WBC 4.37 (3.98-10.04) K/mm3 RBC 3.09 L (3.98-5.22) M/mm3 Hgb 10.4 L D (11.2-15.7) gm/dl Hct 33.3 L (34.1-44.9) % MCV 107.8 H D (79.4-94.8) fl MCH 33.7 H (25.6-32.2) pg MCHC 31.2 L (32.2-35.5) g/dl RDW Std Deviation 63.8 H (36.4-46.3) fL Plt Count 164 L (182-369) K/mm3 MPV 10.7 (9.4-12.3) fl Neut % (Auto) 41.2 (34.0-71.1) % Lymph % (Auto) 47.6 (19.3-51.7) % Pacific % (Auto) 9.6 (4.7-12.5) % Eos % (Auto) 0.9 (0.7-5.8) Baso % (Auto) 0.5 (0.1-1.2) % Neut # (Auto) 1.80 (1.56-6.13) K/mm3 Lymph # (Auto) 2.08 (1.18-3.74) K/mm3 Pacific # (Auto) 0.42 H (0.24-0.36) K/mm3 Eos # (Auto) 0.04 (0.04-0.36) K/mm3 Baso # (Auto) 0.02 (0.01-0.08) K/mm3 Sodium 145 (136-145) mEq/L Potassium 3.7 (3.5-5.1) mEq/L Chloride 110 H (98-107) mEq/L Carbon Dioxide 29 (21-32) mEq/L Anion Gap 9.7 (5-15) BUN 19 H (7-18) mg/dL Creatinine 1.0 (0.55-1.02) mg/dL Est Cr Clr Drug Dosing 52.31 mL/min Estimated GFR (MDRD) 57 (>60) mL/min BUN/Creatinine Ratio 19.0 H (14-18) Glucose 78 (70-99) mg/dL Calcium 7.9 L (8.5-10.1) mg/dL Total Bilirubin 0.3 (0.2-1.0) mg/dL AST 11 L (15-37) U/L ALT 13 L (14-59) U/L Alkaline Phosphatase 43 L (46-116) U/L C-Reactive Protein <0.2 (<1.0) mg/dL Total Protein 5.8 L (6.4-8.2) g/dl Albumin 2.6 L (3.4-5.0) g/dl Globulin 3.2 gm/dL Albumin/Globulin Ratio 0.8 L (1-2) SARS-CoV-2 RNA (ANDREA) Negative (NEGATIVE) - Re-Assessments/Exams Free Text/Narrative Re-Assessment/Exam: 06/12/21 16:39 I ordered a CXR, labs and COVID 19 test. 06/12/21 16:39 Her WBC was normal. Her Hgb was low at 10.4. Her CRP is normal. Her CXR show nodule within left lung base. Uncertain if this is nipple density or represents actual parenchymal nodule. Nodule overlying the right seventh rib posteriorly either due to sclerosis from healing rib fracture or pulmonary nodule. Other incidental findings. For more complete evaluation, please consider noncontrast chest CT. I ordered a CT and that shows emphysematous change. No pulmonary nodules are noted. Slight scarring is seen within both lung bases. Other findings which are nonacute. I feel she has bronchitis. I will get her on zithromax and something for the cough. Departure - Departure Time of Disposition: 16:45 Disposition: Home, Self-Care 01 Condition: Good Clinical Impression: Bronchitis - Discharge Information *PRESCRIPTION DRUG MONITORING PROGRAM REVIEWED*: Not Applicable *COPY OF PRESCRIPTION DRUG MONITORING REPORT IN PATIENT ORSA: Not Applicable Prescriptions: Codeine/Promethazine [Phenergan with Codeine] 5 - 10 ml PO Q6HR PRN #300 ml PRN Reason: Cough Azithromycin [Zithromax] 250 mg PO DAILY #6 tab Referrals: Clifford Werner MD [Primary Care Provider] - 1 Week Forms: ED Department Discharge Additional Instructions: Drink plenty of fluids. Take the zihromax as prescribed. Use the phenergan with codeine for the cough. Take 5 to 10mls every 6 hours as needed for cough. Please return if you are worse. Sepsis Event Note (ED) - Evaluation Sepsis Screening Result: No Definite Risk - Focused Exam Vital Signs: Vital Signs Temp Pulse Resp BP Pulse Ox 06/12/21 13:40 96.9 F 60 16 128/81 99 - My Orders Last 24 Hours: My Active Orders 06/12/21 13:59 Cardiac Monitoring [RC] . DIRECTED - Assessment/Plan Last 24 Hours: My Active Orders 06/12/21 13:59 Cardiac Monitoring [RC] . DIRECTED
== END 2021-06-12 17:00 | disposition home or self-care (01) ==
LOC: JD.ED 13:23
DX: J40 Bronchitis, not specified as acute or chronic (principal); K21.9 Gastro-esophageal reflux disease without esophagitis; I10 Essential (primary) hypertension; E11.9 Type 2 diabetes mellitus without complications; Z86.718 Personal history of other venous thrombosis and embolism; Z20.822 Contact with and (suspected) exposure to COVID-19; Z88.5 Allergy status to narcotic agent; Z88.1 Allergy status to other antibiotic agents; Z88.8 Allergy status to other drugs, medicaments and biological substances
CPT/HCPCS: 36415; 71045; 71250; 80053; 85025; 86140; 99285; U0002; 99283

== ENCOUNTER 2021-07-25 11:05 | Emergency (ER) | payer MEDICARE, MEDICAID ==
[2021-07-25] MEDS ORDERED: HYDROmorphone 1 MG/ML Syringe IM ONE (11:23)
--- NOTE | 2021-07-25 11:30 | EDM.PDOC ---
ED HPI GENERAL MEDICAL PROBLEM - General Chief Complaint: Back Pain or Injury Stated Complaint: [facility] Time Seen by Provider: 07/25/21 11:15 Source of Information: Reports: Patient, RN Notes Reviewed History Limitations: Reports: No Limitations - History of Present Illness INITIAL COMMENTS - FREE TEXT/NARRATIVE: Patient is a 61-year-old female who presents to the ER via [facility] for the evaluation of injury sustained after her fall. She states that she fell 2 times yesterday in her home, earlier in the day, she struck her head but did not have any sort of loss of consciousness. At around 11 PM last night, she tripped and lost her balance and fell onto her left side. She states she is having an immense amount of pain within her left lateral ribs. She states it hurts to take a deep breath, move or do much of anything at all. She tried taking 2 Tylenol for pain management but this did not seem to help. She is fairly healthy otherwise, and has had not had any fevers or chills, cough or shortness of breath prior to this, or any sort of nausea/vomiting/diarrhea. Primary care provider is Dr. Werner. Left Thoracic Pain Score (Numeric/FACES): 8 - Related Data Allergies Allergy/AdvReac Type Severity Reaction Status Date / Time bupropion [From Wellbutrin] Allergy Severe Cannot Verified 07/25/21 11:16 Remember cephalexin Allergy Severe Hives Verified 07/25/21 11:16 morphine Allergy Severe Itching Verified 07/25/21 11:16 lisinopril AdvReac Severe Muscle Verified 07/25/21 11:16 Aches venlafaxine [From Effexor] AdvReac Severe Paralysis Verified 07/25/21 11:16 Home Meds: Home Meds Gabapentin [Neurontin] 600 mg PO TID 06/22/19 [History] Chlorthalidone 25 mg PO DAILY 01/27/20 [History] Divalproex Sodium [Depakote] 500 mg PO BID 01/27/20 [History] clonazePAM [Clonazepam] 1 mg PO TID 02/29/20 [History] ARIPiprazole [Abilify] 2 mg PO DAILY #30 tablet 03/02/20 [Rx] Sertraline [Zoloft] 100 mg PO DAILY #30 tablet 03/02/20 [Rx] traZODone HCl [Trazodone HCl] 100 mg PO BEDTIME #30 tablet 03/02/20 [Rx] SUMAtriptan [Imitrex] 100 mg PO ASDIRECTED PRN #10 tablet MDD 200 03/17/20 [Rx] Patient's Own Medication [Ptom] 0 each PO TIDMEALS each 05/22/20 [Rx] Sulfamethoxazole/Trimethoprim [Septra DS] 1 tab PO BID #6 tablet 05/22/20 [Rx] Azithromycin [Zithromax] 250 mg PO DAILY #6 tab 06/12/21 [Rx] Codeine/Promethazine [Phenergan with Codeine] 5 - 10 ml PO Q6HR PRN #300 ml 06/12/21 [Rx] Past Medical History HEENT History: Reports: Allergic Rhinitis, Impaired Vision Other HEENT History: wears glasses, dentures Cardiovascular History: Reports: Blood Clots/VTE/DVT, Hypertension Respiratory History: Reports: PE Gastrointestinal History: Reports: GERD, PUD, Other (See Below) Other Gastrointestinal History: Peritonitis, gastric ulcer Genitourinary History: Reports: UTI, Recurrent 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 Social & Family History - Family History Family Medical History: No Pertinent Family History - Caffeine Use Caffeine Use: Reports: Coffee Caffeine Use Comment: unknown - Living Situation & Occupation Living situation: Reports: (01/16/2020), with Family (Daughter + her 2 kids) Occupation: Disabled ED ROS GENERAL - Review of Systems Review Of Systems: Comprehensive ROS is negative, except as noted in HPI. ED EXAM, GENERAL - Physical Exam Exam: See Below Exam Limited By: No Limitations General Appearance: Alert, WD/WN, No Apparent Distress Respiratory/Chest: No Respiratory Distress, Lungs Clear, Decreased Breath Sounds (poor inspiratory effort d/t pain), Other (Left lateral/posterior chest tender to palpation, When she breathes there is a audible clicking sound, there is also subcutaneous ephysema present on left posterior chest) Cardiovascular: Normal Peripheral Pulses, Regular Rate, Rhythm, No Edema Extremities: Normal Inspection, Normal Capillary Refill Neurological: Alert, Oriented, Normal Cognition, No Motor/Sensory Deficits Psychiatric: Normal Affect, Normal Mood Skin Exam: Warm, Dry, Intact, Normal Color, No Rash Course - Vital Signs Last Recorded V/S: Last Vital Signs Temp 97.8 F 07/25/21 14:00 Pulse 60 07/25/21 14:00 Resp 12 07/25/21 14:00 BP 112/81 07/25/21 14:00 Pulse Ox 96 07/25/21 14:00 - Orders/Labs/Meds Labs: Laboratory Tests 07/25/21 Range/Units 12:45 SARS-CoV-2 RNA (ANDREA) Negative (NEGATIVE) Meds: Medications Discontinued Medications Generic Name Dose Route Start Last Admin Trade Name Timmyq PRN Reason Stop Dose Admin Hydromorphone HCl 1 mg 07/25/21 11:23 07/25/21 11:31 Hydromorphone 1 Mg/Ml Syringe IM 07/25/21 11:24 1 mg ONETIME ONE Administration Lidocaine/Epinephrine 10 ml 07/25/21 13:32 Lidocaine 1% With Epinephrine 1:100,000 10 Ml Mdv INJECT 07/25/21 13:33 ONETIME ONE - Re-Assessments/Exams Free Text/Narrative Re-Assessment/Exam: 07/25/21 11:30 Patient presents to the ER for the evaluation of her left chest pain after fall. We will go ahead and get rib x-rays for evaluation. There is some subcutaneous emphysema present, highly suspicious for broken ribs, with possible pneumothorax present. 07/25/21 12:42 Patient's chest x-ray demonstrates fractures in the left sixth through ninth ribs, there is a large pneumothorax on the left side with subcutaneous air within the lateral and upper left-sided chest wall. I have already been in c ontact with general surgery, Dr. Carpenter, and she was in a surgical case and will be to evaluate the patient after her surgical case has finished. Patient will necessitate a chest tube to be placed. Patient was given 1 mg IV Dilaudid for initial pain management and she states that this is helped. Patient's vitals signs have been stable, O2 sats are 95% on room air, heart rate is around 76 bpm. We will continue to monitor, and await surgeon for chest tube placement. Patient will necessitate hospitalization of the chest tube has been placed, a COVID-19 screen has been ordered for further management. We are on diversion, so the patient will have to go to a different facility for hospitalization. 07/25/21 14:22 COVID-19 screen is negative, Chest tube has been placed by Dr. Carpenter; post tube placement x-ray has been placed. 07/25/21 14:32 Tube placement x-ray was reviewed by Dr. Carpenter, she states it is acceptable at this time. Patient would prefer to be transferred to [facility] in [place] if they have beds available. So I did call there for initial management however they were checking on their bed status and will call me back. We will go ahead and await their call and then hopefully get her going in a timely fashion when we know if they have beds or not. 07/25/21 15:04 Received a call back from [facility], he is trying to get in touch with their hospitalist and/or surgeon for admission purposes. Departure - Departure Time of Disposition: 15:04 Disposition: DC/Tfer to Acute Hospital 02 Condition: Good Clinical Impression: Multiple rib fractures Qualifiers: Encounter type: initial encounter Fracture type: closed Laterality: left Qualified Code(s): S22.42XA - Multiple fractures of ribs, left side, initial encounter for closed fracture Pneumothorax Qualifiers: Pneumothorax type: traumatic Encounter type: initial encounter Qualified Code(s ): S27.0XXA - Traumatic pneumothorax, initial encounter - Discharge Information *PRESCRIPTION DRUG MONITORING PROGRAM REVIEWED*: No *COPY OF PRESCRIPTION DRUG MONITORING REPORT IN PATIENT ROSA: No Forms: ED Department Discharge Sepsis Event Note (ED) - Evaluation Sepsis Screening Result: No Definite Risk - Focused Exam Vital Signs: Vital Signs Temp Pulse Resp BP Pulse Ox 07/25/21 14:00 97.8 F 60 12 112/81 96 07/25/21 11:14 97 F 78 16 134/84 99
--- NOTE | 2021-07-25 12:36 | CR ---
Chest and left ribs: Frontal view of the chest was obtained as well as 2 views of the left ribs. Comparison: Prior chest CT study of 06/12/21 and chest x-ray of 06/12/21. Large left-sided pneumothorax is seen. Fractures are noted within the sixth, seventh, eighth and ninth ribs. Soft tissue air is seen within the left chest wall extending into the left neck. Right lung is clear. Old fracture is noted within the right lung. Nipple density is seen within the right lung base. Heart size and mediastinum are within normal limits. Slight scoliosis is noted within the spine. Surgical clips are seen from prior cholecystectomy. Impression: 1. Fractures within the left sixth through ninth ribs. 2. Large pneumothorax on the left side with subcutaneous air within the lateral and upper left-sided chest wall. 3. Old right-sided rib fracture is noted with other incidental findings. Diagnostic code #5
[2021-07-25] MEDS ORDERED: Lidocaine 1% with EPINEPHrine 1:100,000 10 ML MDV INJECT ONE (13:32)
[2021-07-25 14:25] VITALS: PULSE 60
--- NOTE | 2021-07-25 14:43 | CR ---
Chest: Portable view of the chest was obtained. Comparison: Prior chest x-ray performed earlier on the same day (11:32 AM). Small caliber chest tube is seen. This lies slightly within the pleural space. Lung has been re-expanded. Pneumothorax has been evacuated. Lungs otherwise are clear. Nipple density is seen within the right lung base. Emphysematous change is seen within both lungs. Heart size and mediastinum are within normal limits. Chest wall air is seen within the left chest. Prior left shoulder surgery is noted. Impression: 1. Small caliber chest tube is slightly within the pleural space. Previous pneumothorax has been evacuated with re-expansion of the left lung. 2. Other findings as described above. Diagnostic code #2
[2021-07-25] MEDS ORDERED: HYDROmorphone 0.5 MG/0.5 ML Syringe IVPUSH ONE (15:30)
[2021-07-25] MEDS ORDERED: HYDROmorphone 0.5 MG/0.5 ML Syringe ONE (15:38)
--- NOTE | 2021-07-25 15:48 | PCM.CONS ---
H&P History of Present Illness - General Date of Service: 07/25/21 Admit Problem/Dx: left pneumothorax and rib fractures Source of Information: Patient - History of Present Illness Initial Comments - Free Text/Narative: The patient is a 61 y/o lady who presents one day after falling at home. She states she has "balance issues" and feels dizzy/lightheaded at times. She fell yesterday at home against her recliner chair from feeling dizzy and loosing her balance. She had pain into the left shoulder and chest, but cannot recall if this was before or after her fall. She does not report any difficulty breathing. In the ED, she was found to have multiple rib fractures and a pneumothorax on the left. Left Thoracic Pain Score (Numeric/FACES): 8 - Related Data Allergies/Adverse Reactions: Allergies Allergy/AdvReac Type Severity Reaction Status Date / Time bupropion [From Wellbutrin] Allergy Severe Cannot Verified 07/25/21 11:16 Remember cephalexin Allergy Severe Hives Verified 07/25/21 11:16 morphine Allergy Severe Itching Verified 07/25/21 11:16 lisinopril AdvReac Severe Muscle Verified 07/25/21 11:16 Aches venlafaxine [From Effexor] AdvReac Severe Paralysis Verified 07/25/21 11:16 Home Medications: Home Meds Gabapentin [Neurontin] 600 mg PO TID 06/22/19 [History] Chlorthalidone 25 mg PO DAILY 01/27/20 [History] Divalproex Sodium [Depakote] 500 mg PO BID 01/27/20 [History] clonazePAM [Clonazepam] 1 mg PO TID 02/29/20 [History] ARIPiprazole [Abilify] 2 mg PO DAILY #30 tablet 03/02/20 [Rx] Sertraline [Zoloft] 100 mg PO DAILY #30 tablet 03/02/20 [Rx] traZODone HCl [Trazodone HCl] 100 mg PO BEDTIME #30 tablet 03/02/20 [Rx] SUMAtriptan [Imitrex] 100 mg PO ASDIRECTED PRN #10 tablet MDD 200 03/17/20 [Rx] Patient's Own Medication [Ptom] 0 each PO TIDMEALS each 05/22/20 [Rx] Sulfamethoxazole/Trimethoprim [Septra DS] 1 tab PO BID #6 tablet 05/22/20 [Rx] Azithromycin [Zithromax] 250 mg PO DAILY #6 tab 06/12/21 [Rx] Codeine/Promethazine [Phenergan with Codeine] 5 - 10 ml PO Q6HR PRN #300 ml 06/12/21 [Rx] Past Medical History HEENT History: Reports: Allergic Rhinitis, Impaired Vision Other HEENT History: wears glasses, dentures Cardiovascular History: Reports: Blood Clots/VTE/DVT, Hypertension Respiratory History: Reports: PE Gastrointestinal History: Reports: GERD, PUD, Other (See Below) Other Gastrointestinal History: Peritonitis, gastric ulcer Genitourinary History: Reports: UTI, 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 Social & Family History - Family History Cardiac: Reports: Arrhythmia, Hypertension Psychiatric: Reports: Bipolar - Tobacco Use Tobacco Use Status *Q: Current Every Day Tobacco User Years of Tobacco use: 45 Packs/Tins Daily: 1 - Caffeine Use Caffeine Use: Reports: Coffee Caffeine Use Comment: unknown - Recreational Drug Use Recreational Drug Use: No - Living Situation & Occupation Living situation: Reports: (01/16/2020), with Family (Daughter + her 2 kids) Occupation: Disabled H&P Review of Systems - Review of Systems: Review Of Systems: See Below General: Reports: Weight Loss HEENT: Reports: No Symptoms Pulmonary: Reports: No Symptoms Cardiovascular: Reports: Chest Pain (see HPI) Gastrointestinal: Reports: No Symptoms Genitourinary: Reports: No Symptoms Musculoskeletal: Reports: No Symptoms Skin: Reports: Bruising Neurological: Reports: Dizziness Hematologic/Lymphatic: Reports: Easy Bruising Exam - Exam Exam: See Below - Vital Signs Vital Signs: Last Vital Signs Temp 36.6 C 07/25/21 14:00 Pulse 60 07/25/21 14:00 Resp 12 07/25/21 14:00 BP 112/81 07/25/21 14:00 Pulse Ox 96 07/25/21 14:00 Weight: 52.163 kg - Exam Quality Assessment: No: Supplemental Oxygen General: Alert, Oriented HEENT: Conjunctiva Clear, EOMI Neck: Supple Lungs: Other (no breath sounds on left) Cardiovascular: Regular Rate, Regular Rhythm GI/Abdominal Exam: Soft, Non-Tender, No Distention Extremities: Normal Inspection Skin: Warm, Dry, Intact, Other (subcutaneous crepitus on left chest) Neurological: Cranial Nerves Intact Neuro Extensive - Mental Status: Oriented x3, Normal Mood/Affect - Patient Data Lab Results Last 24 hrs: Laboratory Results - last 24 hr 07/25/21 Range/Units 12:45 SARS-CoV-2 RNA (ANDREA) Negative (NEGATIVE) Sepsis Event Note - Evaluation Sepsis Screening Result: No Definite Risk - Focused Exam Vital Signs: Vital Signs Temp Pulse Resp BP Pulse Ox 07/25/21 14:00 36.6 C 60 12 112/81 96 07/25/21 11:14 36.1 C 78 16 134/84 99 *Q Meaningful Use (ADM) - VTE Risk Assess *Q Each Risk Factor Represents 1 Point: Age 41 - 59 years Total Score 1 Point Risk Factors: 1 Consult PN Assessment/Plan Procedures: Procedures ASSAY DIPROPYLACETIC ACD TOT (05/19/20) ASSAY GLUCOSE BLOOD QUANT (05/19/20) ASSAY OF AMMONIA (10/19/17) ASSAY OF BLOOD OSMOLALITY (05/19/20) ASSAY OF FERRITIN (01/27/20) ASSAY OF FOLIC ACID RBC (02/29/20) ASSAY OF FREE THYROXINE (07/31/18) ASSAY OF IRON (02/29/20) ASSAY OF LACTIC ACID (05/19/20) ASSAY OF LIPASE (11/24/17) ASSAY OF MAGNESIUM (05/19/20) ASSAY OF NATRIURETIC PEPTIDE (05/19/20) ASSAY OF PHOSPHORUS (02/29/20) ASSAY OF PREALBUMIN (02/29/20) ASSAY OF TRANSFERRIN (02/29/20) ASSAY OF TROPONIN QUANT (05/19/20) ASSAY THYROID STIM HORMONE (05/19/20) AUTOMATED RETICULOCYTE COUNT (02/29/20) BL SMEAR W/DIFF WBC COUNT (01/27/20) C-REACTIVE PROTEIN (06/12/21) COMP SCREEN MAMMOGRAM ADD-ON (07/15/16) COMPLETE CBC AUTOMATED (05/19/20) COMPLETE CBC W/AUTO DIFF WBC (06/12/21) COMPREHEN METABOLIC PANEL (06/12/21) CT ABD & PELV W/CONTRAST (07/31/18) CT THORAX DX C+ (07/31/18) CT THORAX DX C- (06/12/21) DIAGNOSTIC COLONOSCOPY (07/16/16) DRUG TEST PRSMV CHEM ANLYZR (03/26/20) DRUG TEST PRSMV INSTRMNT (05/19/20) EEG AWAKE AND DROWSY (05/17/18) EGD DIAGNOSTIC BRUSH WASH (07/16/16) ELECTROCARDIOGRAM TRACING (05/19/20) EMERGENCY DEPT VISIT (06/12/21) EMERGENCY DEPT VISIT (03/17/20) EMERGENCY DEPT VISIT (02/29/20) EMERGENCY DEPT VISIT (01/27/20) EMERGENCY DEPT VISIT (12/25/18) EMERGENCY DEPT VISIT (07/31/18) EMERGENCY DEPT VISIT (11/24/17) EMERGENCY DEPT VISIT (06/30/16) GLUCOSE BLOOD TEST (05/19/20) GLYCOSYLATED HEMOGLOBIN TEST (05/19/20) HEMATOCRIT (02/29/20) HYDRATE IV INFUSION ADD-ON (05/19/20) HYDRATION IV INFUSION INIT (03/26/20) INSERT TEMP BLADDER CATH (05/19/20) LACTATE (LD) (LDH) ENZYME (01/27/20) METABOLIC PANEL TOTAL CA (05/19/20) MICROBE SUSCEPTIBLE ARELIS (05/19/20) OCCULT BLD FECES 1-3 TESTS (02/29/20) ROUTINE VENIPUNCTURE (06/12/21) SARS-COV-2 COVID-19 AMP PRB (05/19/20) THER/DIAG CONCURRENT INF (05/19/20) THER/PROPH/DIAG INJ IV PUSH (03/17/20) THER/PROPH/DIAG INJ SC/IM (02/29/20) THER/PROPH/DIAG IV INF ADDON (02/29/20) THER/PROPH/DIAG IV INF INIT (05/19/20) TX/PRO/DX INJ NEW DRUG ADDON (03/17/20) TX/PRO/DX INJ SAME DRUG 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 METER ATTENDANT (05/19/20) TX/PROPH/DG ADDL SEQ IV INF (02/29/20) URINALYSIS AUTO W/SCOPE (05/19/20) URINE CULTURE/COLONY COUNT (05/19/20) VITAMIN B-12 (05/19/20) X-RAY EXAM ABDOMEN 1 VIEW (11/24/17) X-RAY EXAM CHEST 1 VIEW (06/12/21) X-RAY EXAM CHEST 2 VIEWS (01/27/20) X-RAY EXAM OF ABDOMEN (01/10/17) (1) Multiple rib fractures SNOMED Code(s): 8356263 Code(s): S22.49XA - MULTIPLE FRACTURES OF RIBS, UNSP SIDE, INIT FOR CLOS FX Current Visit: Yes Qualifiers: Encounter type: initial encounter Fracture type: closed Laterality: left Qualified Code(s): S22.42XA - Multiple fractures of ribs, left side, initial encounter for closed fracture (2) Pneumothorax SNOMED Code(s): 66070311 Code(s): J93.9 - PNEUMOTHORAX, UNSPECIFIED Current Visit: Yes Qualifiers: Pneumothorax type: traumatic Encounter type: initial encounter Qualified Code(s): S27.0XXA - Traumatic pneumothorax, initial encounter Problem List Initiated/Reviewed/Updated: Yes Plan: 61 y/o lady with fall resulting in left rib fractures and pneumothorax - chest tube for pneumothorax. Discussed risk of injury to heart and great vessels. Her written consent was obtained. - pt to be transferred for continued care - medical workup for dizziness and equilibrium changes Pt has had significant weight loss recently. She is scheduled to undergo CT scanning next week. Pt encouraged to discuss this with hospital staff upon transfer for possible inpatient workup Gabby Delarosa MD General surgery
--- NOTE | 2021-07-25 16:05 | PCM.PRNOTE ---
- Free Text/Narrative Note: Date: July 25, 2021 Pre-procedure diagnosis: Left pneumothorax Post-procedure diagnosis: Same Procedure: Placement of left tube thoracostomy Surgeon: Gabby Delarosa MD Anesthesia: 1% lidocaine with epinephrine Estimated blood loss: 1mL Indication: left pneumothorax Description of the procedure: A time-out was completed verifying correct patient, procedure, and site. The patient was positioned appropriately for chest tube placement. The patients left chest was prepped and draped in sterile fashion. 1% Lidocaine was used to anesthetize the surrounding skin area. The needle was inserted to anesthetize the pleura and air was drawn back. A 7mm skin incision was made in the mid- axillary line at the nipple. The 14F percutaneous pigtail chest tube was then gently introduced into the pleural space utilizing the needle trochar. Once the tube was in place with the fenestrations in the chest, the dilator and trochar were removed. There was air return through the tube. The chest tube was sutured securely to the skin and a sterile dressing applied. A pleurevac was attached to the chest tube and a chest x-ray obtained. The patient tolerated the procedure well and there were no complications noted. Gabby Delarosa MD General Surgery
[2021-07-25 19:09] VITALS: BP 106/73
== END 2021-07-25 15:40 ==
LOC: JD.ED 11:05
DX: S22.42XA Multiple fractures of ribs, left side, initial encounter for closed fracture (principal); S27.0XXA Traumatic pneumothorax, initial encounter; I10 Essential (primary) hypertension; E11.9 Type 2 diabetes mellitus without complications; Z88.1 Allergy status to other antibiotic agents; Z88.8 Allergy status to other drugs, medicaments and biological substances; Z88.5 Allergy status to narcotic agent; Z79.899 Other long term (current) drug therapy; Z20.822 Contact with and (suspected) exposure to COVID-19; W01.198A Fall on same level from slipping, tripping and stumbling with subsequent striking against other object, initial encounter
CPT/HCPCS: 32551; 71101; 96372; 99285; C1729; J1170; U0002

== ENCOUNTER 2021-10-10 14:12 | Emergency (ER) | payer MEDICARE, MEDICAID ==
[2021-10-10 14:36] VITALS: BP 96/79; PULSE 61
[2021-10-10] MEDS ORDERED: HYDROmorphone 0.5 MG/0.5 ML Syringe IVPUSH ONE (14:48)
[2021-10-10] MEDS ORDERED: Sodium Chloride 0.9% 10 ML Syringe FLUSH PRN (14:48)
[2021-10-10] MEDS ORDERED: LORazepam 2 MG/ML SDV IVPUSH ONE (14:48)
[2021-10-10] MEDS ORDERED: 50% Dextrose in Water 50 ML Syringe IVPUSH ONE (15:03)
--- NOTE | 2021-10-10 15:04 | EDM.PDOC ---
ED HPI GENERAL MEDICAL PROBLEM - General Chief Complaint: Neurological Problem Stated Complaint: 2 SEIZURES TODAY Time Seen by Provider: 10/10/21 14:42 Source of Information: Reports: Patient, RN Notes Reviewed History Limitations: Reports: No Limitations - History of Present Illness INITIAL COMMENTS - FREE TEXT/NARRATIVE: Patient is a 61-year-old female who presents to the ER for her breakthrough seizures. Patient does have a history of seizures and states she is on 750 mg Depakote 2 times a day. States that her neurologist is Dr. Mccarthy at [facility] in [place]. States that the patient is status post Covid infection roughly 2 weeks ago. States that she has been having issues with some breakthrough seizures since she has had COVID-19. States that she felt fairly good prior to her COVID-19 sickness. Patient states that she believes she had 2 seizures this morning, the first 1 she states that she did lose control of her bladder. States that she was trying to get herself to her bed, where it was somewhere soft and safe but she fell down onto a wooden chair in her living room, striking the left side of her head, left shoulder, left thumb, left lower back and hip area. She states that she is very much painful in those areas. Not really sure how long the seizures lasted. Patient also states that she's been having some issues with low blood sugars but her sugar at today's visit was 65. She states that this seems to be okay for her as long as is over 50. Not having any fevers or chills, cough or shortness of breath or any sort of nausea/vomiting/diarrhea. Left Hip Pain Score (Numeric/FACES): 8 Left Shoulder Pain Score (Numeric/FACES): 7 Lower Back Pain Score (Numeric/FACES): 10 Left Finger-Thumb Pain Score (Numeric/FACES): 8 - Related Data Allergies Allergy/AdvReac Type Severity Reaction Status Date / Time bupropion [From Wellbutrin] Allergy Severe Cannot Verified 10/10/21 14:36 Remember cephalexin Allergy Severe Hives Verified 10/10/21 14:36 morphine Allergy Severe Itching Verified 10/10/21 14:36 lisinopril AdvReac Severe Muscle Verified 10/10/21 14:36 Aches venlafaxine [From Effexor] AdvReac Severe Paralysis Verified 10/10/21 14:36 Home Meds: Home Meds Gabapentin [Neurontin] 600 mg PO TID 06/22/19 [History] Chlorthalidone 25 mg PO DAILY 01/27/20 [History] Divalproex Sodium [Depakote] 500 mg PO BID 01/27/20 [History] clonazePAM [Clonazepam] 1 mg PO TID 02/29/20 [History] ARIPiprazole [Abilify] 2 mg PO DAILY #30 tablet 03/02/20 [Rx] Sertraline [Zoloft] 100 mg PO DAILY #30 tablet 03/02/20 [Rx] traZODone HCl [Trazodone HCl] 100 mg PO BEDTIME #30 tablet 03/02/20 [Rx] SUMAtriptan [Imitrex] 100 mg PO ASDIRECTED PRN #10 tablet MDD 200 03/17/20 [Rx] Patient's Own Medication [Ptom] 0 each PO TIDMEALS each 05/22/20 [Rx] Sulfamethoxazole/Trimethoprim [Septra DS] 1 tab PO BID #6 tablet 05/22/20 [Rx] Azithromycin [Zithromax] 250 mg PO DAILY #6 tab 06/12/21 [Rx] Codeine/Promethazine [Phenergan with Codeine] 5 - 10 ml PO Q6HR PRN #300 ml 06/12/21 [Rx] Hydrocodone/Acetaminophen [HYDROcodone-Acetaminophen 10-325 MG] 1 tab PO Q6H PRN #12 tablet 10/10/21 [Rx] Past Medical History HEENT History: Reports: Allergic Rhinitis, Impaired Vision Other HEENT History: wears glasses, dentures Cardiovascular History: Reports: Blood Clots/VTE/DVT, Hypertension Respiratory History: Reports: PE Gastrointestinal History: Reports: GERD, PUD, Other (See Below) Other Gastrointestinal History: Peritonitis, gastric ulcer Genitourinary History: Reports: UTI, Recurrent [employer] History: Reports: Other [employer] History: hysterectomy Musculoskeletal History: Reports: Osteoarthritis Neurological History: Reports: Migraines, Seizure Other Neuro History: Patient reports last seizure within the last year, about 8 months ago. 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 Social & Family History - Family History Family Medical History: No Pertinent Family History Cardiac: Reports: Arrhythmia, Hypertension Psychiatric: Reports: Bipolar - Tobacco Use Tobacco Use Status *Q: Current Every Day Tobacco User Years of Tobacco use: 30 Packs/Tins Daily: 1 - Caffeine Use Caffeine Use: Reports: Coffee Caffeine Use Comment: unknown - Alcohol Use Days Per Week of Alcohol Use: 7 Number of Drinks Per Day: 1 Total Drinks Per Week: 7 - Recreational Drug Use Recreational Drug Use: No - Living Situation & Occupation Living situation: Reports: (01/16/2020), with Family (Daughter + her 2 kids) Occupation: Disabled ED ROS GENERAL - Review of Systems Review Of Systems: Comprehensive ROS is negative, except as noted in HPI. - Physical Exam Exam: See Below Exam Limited By: No Limitations General Appearance: Alert, WD/WN, No Apparent Distress Respiratory/Chest: No Respiratory Distress, Lungs Clear, Normal Breath Sounds, No Accessory Muscle Use, Chest Non-Tender Cardiovascular: Normal Peripheral Pulses, Regular Rate, Rhythm, No Edema GI/Abdominal: Normal Bowel Sounds, Soft, Non-Tender, No Distention, No Mass Neuro Exam (Abbreviated): Alert, Oriented, Normal Cognition, No Motor/Sensory Deficits Extremities: Normal Capillary Refill Psychiatric: Normal Affect Skin Exam: Warm, Dry, Intact, No Rash, Ecchymosis (slight bit of ecchymosis noted to the left thumb) ED PROCEDURES - Splinting Left Thumb Splint Site: Lef thumb Pre-procedure NV status: Normal Post-procedure NV status: Normal Splint Material: Aluminum-Foam (cage type splint) Applied & Form Fitted By: Provider Provider Post-Splint Application NV Check: NV Status Normal, Good Position Complications: No Course - Vital Signs Last Recorded V/S: Last Vital Signs Temp 97.5 F 10/10/21 14:27 Pulse 61 10/10/21 14:27 Resp 20 10/10/21 14:27 BP 96/79 10/10/21 14:27 Pulse Ox 100 10/10/21 14:27 - Orders/Labs/Meds Orders: Active Orders 24 hr Category Date Time Status Peripheral IV Care [RC] . DIRECTED Care 10/10/21 14:49 Active Sodium Chloride 0.9% [Saline Flush] Med 10/10/21 14:48 Active 10 ml FLUSH ASDIRECTED PRN Peripheral IV Insertion Adult [OM.PC] Routine Oth 10/10/21 14:48 Ordered Medication Orders Sodium Chloride (Sodium Chloride 0.9% 10 Ml Syringe) 10 ml FLUSH ASDIRECTED PRN PRN Reason: Keep Vein Open Last Admin: 10/10/21 15:02 Dose: 10 ml Documented by: GET Labs: Laboratory Tests 10/10/21 10/10/21 10/10/21 Range/Units 14:41 15:03 15:03 WBC 4.07 (3.98-10.04) K/mm3 RBC 3.16 L (3.98-5.22) M/mm3 Hgb 10.6 L (11.2-15.7) gm/dl Hct 33.2 L (34.1-44.9) % MCV 105.1 H (79.4-94.8) fl MCH 33.5 H (25.6-32.2) pg MCHC 31.9 L (32.2-35.5) g/dl RDW Std Deviation 59.6 H (36.4-46.3) fL Plt Count 171 L (182-369) K/mm3 MPV 10.6 (9.4-12.3) fl Neut % (Auto) 49.1 (34.0-71.1) % Lymph % (Auto) 36.6 (19.3-51.7) % Sawyer % (Auto) 12.8 H (4.7-12.5) % Eos % (Auto) 1.0 (0.7-5.8) Baso % (Auto) 0.5 (0.1-1.2) % Neut # (Auto) 2.00 (1.56-6.13) K/mm3 Lymph # (Auto) 1.49 (1.18-3.74) K/mm3 Sawyer # (Auto) 0.52 H (0.24-0.36) K/mm3 Eos # (Auto) 0.04 (0.04-0.36) K/mm3 Baso # (Auto) 0.02 (0.01-0.08) K/mm3 Sodium 141 (136-145) mEq/L Potassium 3.3 L (3.5-5.1) mEq/L Chloride 103 (98-107) mEq/L Carbon Dioxide 24 (21-32) mEq/L Anion Gap 17.3 H (5-15) BUN 24 H (7-18) mg/dL Creatinine 1.3 H (0.55-1.02) mg/dL Est Cr Clr Drug Dosing 39.37 mL/min Estimated GFR (MDRD) 42 (>60) mL/min BUN/Creatinine Ratio 18.5 H (14-18) Glucose 68 L (70-99) mg/dL POC Glucose 65 L (70-99) mg/dL Calcium 8.6 (8.5-10.1) mg/dL Magnesium 1.9 (1.8-2.4) mg/dL Total Bilirubin 0.2 (0.2-1.0) mg/dL AST 32 (15-37) U/L ALT 24 (14-59) U/L Alkaline Phosphatase 58 (46-116) U/L Total Protein 6.0 L (6.4-8.2) g/dl Albumin 3.0 L (3.4-5.0) g/dl Globulin 3.0 gm/dL Albumin/Globulin Ratio 1.0 (1-2) Valproic Acid (50.0-100.0) ug/mL 10/10/21 Range/Units 15:03 WBC (3.98-10.04) K/mm3 RBC (3.98-5.22) M/mm3 Hgb (11.2-15.7) gm/dl Hct (34.1-44.9) % MCV (79.4-94.8) fl MCH (25.6-32.2) pg MCHC (32.2-35.5) g/dl RDW Std Deviation (36.4-46.3) fL Plt Count (182-369) K/mm3 MPV (9.4-12.3) fl Neut % (Auto) (34.0-71.1) % Lymph % (Auto) (19.3-51.7) % Sawyer % (Auto) (4.7-12.5) % Eos % (Auto) (0.7-5.8) Baso % (Auto) (0.1-1.2) % Neut # (Auto) (1.56-6.13) K/mm3 Lymph # (Auto) (1.18-3.74) K/mm3 Sawyer # (Auto) (0.24-0.36) K/mm3 Eos # (Auto) (0.04-0.36) K/mm3 Baso # (Auto) (0.01-0.08) K/mm3 Sodium (136-145) mEq/L Potassium (3.5-5.1) mEq/L Chloride (98-107) mEq/L Carbon Dioxide (21-32) mEq/L Anion Gap (5-15) BUN (7-18) mg/dL Creatinine (0.55-1.02) mg/dL Est Cr Clr Drug Dosing mL/min Estimated GFR (MDRD) (>60) mL/min BUN/Creatinine Ratio (14-18) Glucose (70-99) mg/dL POC Glucose (70-99) mg/dL Calcium (8.5-10.1) mg/dL Magnesium (1.8-2.4) mg/dL Total Bilirubin (0.2-1.0) mg/dL AST (15-37) U/L ALT (14-59) U/L Alkaline Phosphatase (46-116) U/L Total Protein (6.4-8.2) g/dl Albumin (3.4-5.0) g/dl Globulin gm/dL Albumin/Globulin Ratio (1-2) Valproic Acid 17.3 L (50.0-100.0) ug/mL Meds: Medications Generic Name Dose Route Start Last Admin Trade Name Freq PRN Reason Stop Dose Admin Sodium Chloride 10 ml 10/10/21 14:48 10/10/21 15:02 Sodium Chloride 0.9% 10 Ml Syringe FLUSH 10 ml ASDIRECTED PRN Administration Keep Vein Open Discontinued Medications Generic Name Dose Route Start Last Admin Trade Name Freq PRN Reason Stop Dose Admin Dextrose/Water 25 ml 10/10/21 15:03 10/10/21 15:00 50% Dextrose In Water 50 Ml Syringe IVPUSH 10/10/21 15:04 25 ml ONETIME ONE Administration Hydromorphone HCl 0.5 mg 10/10/21 14:48 10/10/21 15:01 Hydromorphone 0.5 Mg/0.5 Ml Syringe IVPUSH 10/10/21 14:49 0.5 mg ONETIME ONE Administration Lorazepam 1 mg 10/10/21 14:48 10/10/21 15:01 Lorazepam 2 Mg/Ml Sdv IVPUSH 10/10/21 14:49 1 mg ONETIME ONE Administration - Re-Assessments/Exams Free Text/Narrative Re-Assessment/Exam: 10/10/21 15:05 Patient presents to the ER for evaluation of her breakthrough seizures. We'll go ahead and get some labs, we will need to do some imaging as well for ongoing investigation. Plan would be a head CT, left shoulder, thumb x-ray, and a lumbar/hip x-ray for management. Patient states that she was in quite a bit of pain so 0.5 mg IV Dilaudid has been ordered. Have also ordered 1 mg IV Ativan, and a half amp of D50 to be given due to this somewhat low blood sugar. Although the patient states that her blood sugar typically is okay for her if over 50. I would like to get that boosted up at this time. 10/10/21 16:59 Laboratory evaluation demonstrates a fairly normal CBC, CMP does show some dehydration, a low potassium of 3.3. Blood sugar was 68 on the metabolic panel. Patient is eating at bedside right now and did get a half amp of D50 for ongoing management of this. Head CT was without acute findings, the patient's shoulder x-ray did reveal a left sixth rib fracture, she has a small fracture off of the corner base of the distal phalanx of the left thumb but all other investigations were essentially normal. Patient again states that she is feeling much better. I talked over the general case with neurologist on-call at [facility] and he was concerned about her low valproic acid level at 17.3 and questioned if she was taking her meds the way she should. So I did asked the patient about this and she did confess that she is only been taking 750 mg daily due to money constraints. She is aware that this might be what is precipitated some of the seizures. I did urge her to take the medications as prescribed. The neurologist at [facility] does want to give her a 1500 mg Depakote dose in the ER and she can go home if she feels okay to do so. I will go ahead and let her home as she does have support at home for management. Departure - Departure Time of Disposition: 17:04 Disposition: Home, Self-Care 01 Condition: Good Clinical Impression: Seizures Fracture of thumb, left, closed Qualifiers: Encounter type: initial encounter Phalanx: distal Fracture alignment: nondisplaced Qualified Code(s): S62.525A - Nondisplaced fracture of distal phalanx of left thumb, initial encounter for closed fracture Closed rib fracture Qualifiers: Encounter type: initial encounter Rib fracture type: single rib Laterality: left Qualified Code(s): S22.32XA - Fracture of one rib, left side, initial encounter for closed fracture - Discharge Information *PRESCRIPTION DRUG MONITORING PROGRAM REVIEWED*: No *COPY OF PRESCRIPTION DRUG MONITORING REPORT IN PATIENT ROSA: No Instructions: Finger Fracture, Adult, [id number], Seizure, Adult, [id number] Referrals: Clifford Werner MD [Primary Care Provider] - Joss Powers MD [Ordering Only Provider] - Forms: ED Department Discharge Additional Instructions: You were evaluated in the ER today for your injury sustained after your breakthrough seizures. As you indicated you are not taking your Depakote the way you should in a way to try to save money. I would recommend that you take your doses as prescribed from your regular provider during this time to help prevent more seizures. Investigation at today's visit does demonstrate some slight dehydration by lab standards, you do have a small fracture at the base of the distal phalanx of your left thumb, and a rib fracture of your sixth rib on your left side. You were given a prescription for a strong pain medication, hydrocodone/acetaminophen 10/325 mg), please take 1 tab every 6 hours as needed for pain not relieved by Tylenol or ibuprofen alone. Please note this medication does contain Tylenol in it, so do not take more than 4000 mg in a 24- hour time span. These medications can be addictive, so please take as few as possible to achieve adequate pain control. These meds can also be quite constipating, recommend that you increase your oral fluid intake and take a stool softener like MiraLAX while taking these medications. Do not drive while taking this medication. This medication was electronically sent to the [facility] located on [address]. You have also been given a dose of Depakote in the ER to help boost your levels. I would strongly recommend that you follow-up with your neurologist Dr. Powers, tomorrow to see if you can get an appointment for follow-up for this ER visit for ongoing management of your seizures. Again please continue all other medications as previously prescribed. Would also recommend you try to increase your oral fluid intake fluids such as Gatorade/Powerade or substances like protein shakes would be good during this time if you do not necessarily feel hungry. You need to keep your nutrition up also in order to help prevent any further seizure activity. Do not hesitate to return to the ER at any time if symptoms change or worsen. Sepsis Event Note (ED) - Focused Exam Vital Signs: Vital Signs Temp Pulse Resp BP Pulse Ox 10/10/21 14:27 97.5 F 61 20 96/79 100 - My Orders Last 24 Hours: My Active Orders 10/10/21 14:48 Sodium Chloride 0.9% [Saline Flush] 10 ml FLUSH ASDIRECTED PRN Peripheral IV Insertion Adult [OM.PC] Routine 10/10/21 14:49 Peripheral IV Care [RC] . DIRECTED - Assessment/Plan Last 24 Hours: My Active Orders 10/10/21 14:48 Sodium Chloride 0.9% [Saline Flush] 10 ml FLUSH ASDIRECTED PRN Peripheral IV Insertion Adult [OM.PC] Routine 10/10/21 14:49 Peripheral IV Care [RC] . DIRECTED
--- NOTE | 2021-10-10 16:21 | CT ---
Head CT Technique: Multiple axial sections through the brain were obtained. Reconstructed coronal and sagittal images were obtained. Comparison: Prior head CT study of 12/16/19. Findings: Ventricles along the basal cisterns and sulci over the convexities are mildly prominent. No abnormal parenchymal densities are seen. No evidence of intracranial hemorrhage is seen. No midline shift or mass-effect is appreciated. Bone window settings were reviewed. Visualized mastoid sinuses and paranasal sinuses show nothing acute. No acute calvarial abnormality is appreciated. Impression: 1. Mild generalized atrophy. 2. No acute intracranial abnormality is seen. Diagnostic code #2
--- NOTE | 2021-10-10 16:23 | CR ---
Left shoulder: 3 views of the left shoulder were obtained. Comparison: No prior shoulder study is available. Prior surgery is seen. Glenohumeral joint and acromioclavicular joint are within normal limits. Rib fracture is seen within the sixth rib laterally. Shoulder shows no fracture, dislocation or other bony abnormality. Impression: 1. Fracture within the lateral left sixth rib. 2. Prior shoulder surgery is seen. 3. Other portion of the left shoulder study are unremarkable. Diagnostic code #3
--- NOTE | 2021-10-10 16:24 | CR ---
Left thumb: 3 views of the left thumb were obtained. Comparison: No prior thumb study is available. Small fracture fragment is seen within the corner base of the distal phalanx. No additional fracture is seen. Mild degenerative change is seen within the CMC joint of the thumb. Impression: 1. Small fracture fragment at the corner base of the distal phalanx of the left thumb. 2. Mild degenerative change. Diagnostic code #3
--- NOTE | 2021-10-10 16:37 | CR ---
Pelvis and left hip: AP view of the pelvis was obtained as well as AP and frog-leg lateral views of the left hip. Comparison: No prior pelvis or hip exam is available. Joint spaces within both hips are maintained. Slight joint space narrowing is seen within the lower right sacroiliac joint. No fracture or other bony abnormality is appreciated. Slight vascular calcification is also noted. Joint space narrowing is seen within the pubic symphysis. Impression: 1. Mild degenerative change as noted above. 2. No acute bony abnormality is appreciated on AP pelvis or on 2-view left hip exam. Diagnostic code #2
[2021-10-10] MEDS ORDERED: Divalproex Sodium Delayed-Release 500 MG Tab.CR PO ONE (17:01)
[2021-10-10] MEDS ORDERED: Acetaminophen/HYDROcodone 325-5 MG Tab PO ONE (17:30)
== END 2021-10-10 17:41 | disposition home or self-care (01) ==
LOC: JD.ED 14:12
DX: S62.525A Nondisplaced fracture of distal phalanx of left thumb, initial encounter for closed fracture (principal); S22.32XA Fracture of one rib, left side, initial encounter for closed fracture; R56.9 Unspecified convulsions; I10 Essential (primary) hypertension; K21.9 Gastro-esophageal reflux disease without esophagitis; E11.649 Type 2 diabetes mellitus with hypoglycemia without coma; Z72.0 Tobacco use; Z88.1 Allergy status to other antibiotic agents; Z88.8 Allergy status to other drugs, medicaments and biological substances; Z88.5 Allergy status to narcotic agent; Z79.899 Other long term (current) drug therapy; Z86.16 Personal history of COVID-19; W18.09XA Striking against other object with subsequent fall, initial encounter
CPT/HCPCS: 36415; 70450; 73030; 73140; 73502; 80053; 80164; 82947; 83735; 85025; 96374; 96375; 99285; A9270; J1170; J2060

== ENCOUNTER 2021-10-24 11:58 | Emergency (ER) | payer MEDICARE, MEDICAID ==
[2021-10-24 12:10] VITALS: BP 160/101
[2021-10-24] MEDS ORDERED: Sodium Chloride 0.9% 10 ML Syringe FLUSH PRN (12:26)
--- NOTE | 2021-10-24 12:44 | EDM.PDOC ---
ED HPI GENERAL MEDICAL PROBLEM - General Chief Complaint: General Stated Complaint: seizure Time Seen by Provider: 10/24/21 12:09 Source of Information: Reports: Patient History Limitations: Reports: No Limitations - History of Present Illness INITIAL COMMENTS - FREE TEXT/NARRATIVE: 61-year-old female presents the emergency department today with complaints of increased weakness and confusion. She also states that she had a seizure yesterday and today. She states this has been ongoing for approximately the past few months. When asked if she has seen her primary care provider, Dr. Werner, she states she spoke to him a couple of weeks ago. She also reports she has not been taking her seizure medication as prescribed due to the fact that she is trying to save money. Currently supposed to be taking Depakote 2 tabs twice daily. Patient states she recently had Covid however is not able to tell me when. She is drowsy and pupils are dilated. She denies any loss of bowel or bladder today. She states that her boyfriend was at home with her when she had the reported seizure. - Related Data Allergies Allergy/AdvReac Type Severity Reaction Status Date / Time bupropion [From Wellbutrin] Allergy Severe Cannot Verified 10/24/21 12:11 Remember cephalexin Allergy Severe Hives Verified 10/24/21 12:11 morphine Allergy Severe Itching Verified 10/24/21 12:11 lisinopril AdvReac Severe Muscle Verified 10/24/21 12:11 Aches venlafaxine [From Effexor] AdvReac Severe Paralysis Verified 10/24/21 12:11 ibuprofen AdvReac Unknown Other Verified 10/24/21 13:35 Home Meds: Home Meds ClonazePAM [KlonoPIN] 1.25 mg PO TID 10/24/21 [History] Divalproex Sodium 500 mg PO BID 10/24/21 [History] Furosemide 20 mg PO DAILY 10/24/21 [History] Gabapentin [Neurontin] 600 mg PO TID 10/24/21 [History] Hydrocodone/Acetaminophen [HYDROcodone-Acetaminophen 5-325 MG] 1 tab PO Q6H PRN 10/24/21 [History] Losartan Potassium 100 mg PO DAILY 10/24/21 [History] Metoclopramide [Reglan] 5 mg PO Q8H PRN 10/24/21 [History] Naproxen 500 mg PO BID 10/24/21 [History] Pantoprazole Sodium [Protonix] 40 mg PO QAM 10/24/21 [History] Potassium Chloride 20 meq PO DAILY 10/24/21 [History] SUMAtriptan succinate [Imitrex] 100 mg PO Q2H PRN 10/24/21 [History] Sertraline [Zoloft] 150 mg PO DAILY 10/24/21 [History] cloNIDine [Catapres] 0.1 mg PO BEDTIME PRN 10/24/21 [History] nitrofurantoin macrocrystaL [Nitrofurantoin] 100 mg PO BID #9 capsule 10/24/21 [Rx] Past Medical History HEENT History: Reports: Allergic Rhinitis, Impaired Vision Other HEENT History: wears glasses, dentures Cardiovascular History: Reports: Blood Clots/VTE/DVT, Hypertension Respiratory History: Reports: PE Gastrointestinal History: Reports: GERD, PUD, Other (See Below) Other Gastrointestinal History: Peritonitis, gastric ulcer Genitourinary History: Reports: UTI, Recurrent RETINAL ANGIOGRAPHER History: Reports: Other RETINAL ANGIOGRAPHER History: hysterectomy Musculoskeletal History: Reports: Osteoarthritis Neurological History: Reports: Migraines, Seizure Other Neuro History: Patient reports last seizure within the last year, about 8 months ago. 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 Social & Family History - Family History Family Medical History: No Pertinent Family History Cardiac: Reports: Arrhythmia, Hypertension Psychiatric: Reports: Bipolar - Tobacco Use Tobacco Use Status *Q: Current Every Day Tobacco User Years of Tobacco use: 40 Packs/Tins Daily: 1 - Caffeine Use Caffeine Use: Reports: None Caffeine Use Comment: unknown - Alcohol Use Days Per Week of Alcohol Use: 7 Number of Drinks Per Day: 1 Total Drinks Per Week: 7 - Recreational Drug Use Recreational Drug Use: No - Living Situation & Occupation Living situation: Reports: (01/16/2020), with Family (Daughter + her 2 kids) Occupation: Disabled ED ROS GENERAL - Review of Systems Review Of Systems: Comprehensive ROS is negative, except as noted in HPI. ED EXAM, GENERAL - Physical Exam Exam: See Below Exam Limited By: No Limitations General Appearance: WD/WN, No Apparent Distress. No: Alert Eye Exam: Bilateral Eye: EOMI, PERRL Ears: Normal External Exam, Hearing Grossly Normal Nose: Normal Inspection Throat/Mouth: Normal Inspection, Normal Lips, Normal Voice, No Airway Compromise Head: Atraumatic Neck: Normal Inspection, Supple Respiratory/Chest: No Respiratory Distress, Lungs Clear, Normal Breath Sounds, No Accessory Muscle Use, Chest Non-Tender Cardiovascular: Normal Peripheral Pulses, Regular Rate, Rhythm, No Edema, No Murmur Peripheral Pulses: 2+: Radial (L), Radial (R) GI/Abdominal: Normal Bowel Sounds, Soft, Non-Tender, No Distention (Female) Exam: Deferred Rectal (Female) Exam: Deferred Back Exam: Normal Inspection Extremities: Normal Inspection Neurological: Alert, Oriented, Slow to Respond Psychiatric: Flat Affect Skin Exam: Warm, Dry, Intact, No Rash, Pallor Lymphatic: No Adenopathy Course - Vital Signs Text/Narrative:: As stated above, patient presents with reports of one seizure noted yesterday and today. Patient is drowsy however answers questions appropriately. Pupils are equal and round and reactive to light at 5 mm. Remainder of physical exam is otherwise unremarkable. Blood pressure is elevated at 160/101 however the remainder of vital signs are unremarkable as well. Will obtain lab studies to include a CBC, CMP, magnesium and valproic acid levels. We will have nursing staff place a saline lock. Last Recorded V/S: Last Vital Signs Temp 96.9 F 10/24/21 12:09 Pulse 52 L 10/24/21 12:09 Resp 18 10/24/21 12:09 BP 160/101 H 10/24/21 12:09 Pulse Ox 100 10/24/21 12:09 - Orders/Labs/Meds Orders: Active Orders 24 hr Category Date Time Status CULTURE URINE [MREF] Stat Lab 10/24/21 13:15 Received Sodium Chloride 0.9% [Saline Flush] Med 10/24/21 12:26 Active 10 ml FLUSH ASDIRECTED PRN Saline Lock Insert [OM.PC] Stat Oth 10/24/21 12:26 Ordered Medication Orders Sodium Chloride (Sodium Chloride 0.9% 10 Ml Syringe) 10 ml FLUSH ASDIRECTED PRN PRN Reason: Keep Vein Open Last Admin: 10/24/21 14:27 Dose: 10 ml Documented by: EMANUEL Labs: Laboratory Tests 10/24/21 10/24/21 10/24/21 Range/Units 12:45 12:45 13:15 WBC 6.10 (3.98-10.04) K/mm3 RBC 2.88 L (3.98-5.22) M/mm3 Hgb 9.9 L (11.2-15.7) gm/dl Hct 31.1 L (34.1-44.9) % MCV 108.0 H (79.4-94.8) fl MCH 34.4 H (25.6-32.2) pg MCHC 31.8 L (32.2-35.5) g/dl RDW Std Deviation 61.3 H (36.4-46.3) fL Plt Count 176 L (182-369) K/mm3 MPV 10.4 (9.4-12.3) fl Neut % (Auto) 45.1 (34.0-71.1) % Lymph % (Auto) 39.2 (19.3-51.7) % [place] % (Auto) 13.4 H (4.7-12.5) % Eos % (Auto) 1.8 (0.7-5.8) Baso % (Auto) 0.3 (0.1-1.2) % Neut # (Auto) 2.75 (1.56-6.13) K/mm3 Lymph # (Auto) 2.39 (1.18-3.74) K/mm3 [place] # (Auto) 0.82 H (0.24-0.36) K/mm3 Eos # (Auto) 0.11 (0.04-0.36) K/mm3 Baso # (Auto) 0.02 (0.01-0.08) K/mm3 Sodium 143 (136-145) mEq/L Potassium 4.1 (3.5-5.1) mEq/L Chloride 107 (98-107) mEq/L Carbon Dioxide 29 (21-32) mEq/L Anion Gap 11.1 (5-15) BUN 20 H (7-18) mg/dL Creatinine 1.0 (0.55-1.02) mg/dL Est Cr Clr Drug Dosing 51.18 mL/min Estimated GFR (MDRD) 57 (>60) mL/min BUN/Creatinine Ratio 20.0 H (14-18) Glucose 74 (70-99) mg/dL Calcium 8.6 (8.5-10.1) mg/dL Magnesium 2.1 (1.8-2.4) mg/dL Total Bilirubin 0.3 (0.2-1.0) mg/dL AST 12 L (15-37) U/L ALT 21 (14-59) U/L Alkaline Phosphatase 61 (46-116) U/L Total Protein 6.3 L (6.4-8.2) g/dl Albumin 3.0 L (3.4-5.0) g/dl Globulin 3.3 gm/dL Albumin/Globulin Ratio 0.9 L (1-2) Urine Color Yellow (Yellow) Urine Appearance Clear (Clear) Urine pH 7.0 (5.0-8.0) Ur Specific [place] 1.020 (1.005-1.030) Urine Protein Negative (Negative) Urine Glucose (UA) Negative (Negative) Urine Ketones Negative (Negative) Urine Occult Blood Trace-intact H (Negative) Urine Nitrite Positive H (Negative) Urine Bilirubin Negative (Negative) Urine Urobilinogen 1.0 (0.2-1.0) Ur Leukocyte Esterase Trace H (Negative) Urine RBC 0-5 (0-5) /hpf Urine WBC 30-40 H (0-5) /hpf Ur Squamous Epith Cells 0-5 (0-5) /hpf Urine Bacteria Many H (FEW) /hpf Urine Mucus Few (FEW) /hpf Urine Opiates Screen (PSLNVP=760) Ur Buprenorphine Scrn (CUTOFF=10) Ur Oxycodone Screen (YHN0JA=855) Urine Methadone Screen (CBUJPQ=886) Ur Propoxyphene Screen (FNJLJM=136) Ur Barbiturates Screen (KKNJJL=804) Valproic Acid 47.0 L (50.0-100.0) ug/mL Ur Tricyclics Screen (ZUFHZV=404) Ur Phencyclidine Scrn (CUTOFF=25) Ur Amphetamine Screen (PJUVYU=114) U Methamphetamines Scrn (BZTTYF=275) U Benzodiazepines Scrn (VUMEAV=335) U Cocaine Metab Screen (NDNCOP=350) U Marijuana (THC) Screen (CUTOFF=50) Ethyl Alcohol 0.00 (0.00) gm% 10/24/21 Range/Units 13:15 WBC (3.98-10.04) K/mm3 RBC (3.98-5.22) M/mm3 Hgb (11.2-15.7) gm/dl Hct (34.1-44.9) % MCV (79.4-94.8) fl MCH (25.6-32.2) pg MCHC (32.2-35.5) g/dl RDW Std Deviation (36.4-46.3) fL Plt Count (182-369) K/mm3 MPV (9.4-12.3) fl Neut % (Auto) (34.0-71.1) % Lymph % (Auto) (19.3-51.7) % [place] % (Auto) (4.7-12.5) % Eos % (Auto) (0.7-5.8) Baso % (Auto) (0.1-1.2) % Neut # (Auto) (1.56-6.13) K/mm3 Lymph # (Auto) (1.18-3.74) K/mm3 [place] # (Auto) (0.24-0.36) K/mm3 Eos # (Auto) (0.04-0.36) K/mm3 Baso # (Auto) (0.01-0.08) K/mm3 Sodium (136-145) mEq/L Potassium (3.5-5.1) mEq/L Chloride (98-107) mEq/L Carbon Dioxide (21-32) mEq/L Anion Gap (5-15) BUN (7-18) mg/dL Creatinine (0.55-1.02) mg/dL Est Cr Clr Drug Dosing mL/min Estimated GFR (MDRD) (>60) mL/min BUN/Creatinine Ratio (14-18) Glucose (70-99) mg/dL Calcium (8.5-10.1) mg/dL Magnesium (1.8-2.4) mg/dL Total Bilirubin (0.2-1.0) mg/dL AST (15-37) U/L ALT (14-59) U/L Alkaline Phosphatase (46-116) U/L Total Protein (6.4-8.2) g/dl Albumin (3.4-5.0) g/dl Globulin gm/dL Albumin/Globulin Ratio (1-2) Urine Color (Yellow) Urine Appearance (Clear) Urine pH (5.0-8.0) Ur Specific [place] (1.005-1.030) Urine Protein (Negative) Urine Glucose (UA) (Negative) Urine Ketones (Negative) Urine Occult Blood (Negative) Urine Nitrite (Negative) Urine Bilirubin (Negative) Urine Urobilinogen (0.2-1.0) Ur Leukocyte Esterase (Negative) Urine RBC (0-5) /hpf Urine WBC (0-5) /hpf Ur Squamous Epith Cells (0-5) /hpf Urine Bacteria (FEW) /hpf Urine Mucus (FEW) /hpf Urine Opiates Screen Negative (JOCCXM=524) Ur Buprenorphine Scrn Negative (CUTOFF=10) Ur Oxycodone Screen Negative (LJF6QO=928) Urine Methadone Screen Negative (XDIVCV=179) Ur Propoxyphene Screen Negative (LUXDIO=775) Ur Barbiturates Screen Negative (YBJIZH=495) Valproic Acid (50.0-100.0) ug/mL Ur Tricyclics Screen Negative (AZWLGE=612) Ur Phencyclidine Scrn Negative (CUTOFF=25) Ur Amphetamine Screen Presumptive positive H (MIJRWG=830) U Methamphetamines Scrn Presumptive positive H (MPTUDF=858) U Benzodiazepines Scrn Negative (KFCNPC=321) U Cocaine Metab Screen Negative (GKHWNK=293) U Marijuana (THC) Screen Negative (CUTOFF=50) Ethyl Alcohol (0.00) gm% Meds: Medications Generic Name Dose Route Start Last Admin Trade Name Freq PRN Reason Stop Dose Admin Sodium Chloride 10 ml 10/24/21 12:26 10/24/21 14:27 Sodium Chloride 0.9% 10 Ml Syringe FLUSH 10 ml ASDIRECTED PRN Administration Keep Vein Open Discontinued Medications Generic Name Dose Route Start Last Admin Trade Name Freq PRN Reason Stop Dose Admin Acetaminophen 650 mg 10/24/21 14:31 10/24/21 14:56 Acetaminophen 325 Mg Tab PO 10/24/21 14:32 650 mg NOW ONE Administration Valproic Acid 500 mg/ Sodium 105 mls @ 105 mls/hr 10/24/21 13:52 10/24/21 14:28 Chloride IV 10/24/21 13:53 Not Given ONETIME ONE Valproic Acid 500 mg/ Sodium 105 mls @ 105 mls/hr 10/24/21 14:30 10/24/21 14:57 Chloride IV 10/24/21 15:29 105 mls/hr ONETIME ONE Administration Nitrofurantoin Macrocrystals 100 mg 10/24/21 13:54 10/24/21 14:27 Nitrofurantoin Monohydrate/Macrocrystalline 100 Mg Cap PO 10/24/21 13:55 100 mg ONETIME ONE Administration Ondansetron HCl 4 mg 10/24/21 14:31 10/24/21 14:55 Ondansetron 4 Mg/2 Ml Sdv IVPUSH 10/24/21 14:32 4 mg ONETIME ONE Administration - Re-Assessments/Exams Free Text/Narrative Re-Assessment/Exam: 10/24/21 13:58 Hematology reveals a WBC of 6.10, hemoglobin 9.9, hematocrit 31.1, MCV 108.0, platelet count 176 Chemistry reveals a sodium of 143, potassium 4.1, anion gap 11.1, BUN 20, creatinine 1.0, GFR 57, magnesium 2.1 Urinalysis reveals a trace of intact blood, nitrite positive, leukocyte Estrace trace, urine WBC 30-40 and urine bacteria many Urine drug screen presumptive positive for amphetamine and methamphetamine, valproic acid level 47.0, ethyl alcohol 0.00 I spoke with the neurologist on-call at [facility] in [place], Dr. Tarango, and he recommends the patient receive Depacon 500 mg IV now and then follow-up with Ivy Maldonado NP at [facility] in [place] at her next available appointment. Patient will also be started on nitrofurantoin 100 mg twice daily x5 days to treat UTI. 10/24/21 14:48 Digital rectal exam is negative for occult blood. Patient does have a history of chronic anemia. 10/24/21 16:56 Patient is ready to be discharged home. Did discuss the need to stop using methamphetamine as it does cause seizures and the patient already has a seizure disorder. Patient tells me she only uses it recreationally and does not use a daily. Again reiterated the need to stop using meth. Patient states she does plan on going to rehab for this and states she does not need any information for any resources. Recommended that if she does that she reach out to [facility]. Patient will be discharged home with a prescription for nitrofurantoin. We will also recommend that she follow-up with Ivy Maldonado NP at [facility] for neurology services. Departure - Departure Time of Disposition: 16:58 Disposition: Home, Self-Care 01 Condition: Good Clinical Impression: Seizure disorder, Methamphetamine use Anemia Qualifiers: Anemia type: unspecified type Qualified Code(s): D64.9 - Anemia, unspecified - Discharge Information Prescriptions: nitrofurantoin macrocrystaL [Nitrofurantoin] 100 mg PO BID #9 capsule Instructions: Anemia, Methamphetamines Use Disorder, Seizure, Adult, Eas y-to-Read Referrals: Clifford Werner MD [Primary Care Provider] - Forms: ED Department Discharge Additional Instructions: You were seen in the emergency department today with complaints of seizure yesterday and today. However you did admit to not taking your Depakote as prescribed. Is strongly recommended that you take this as it is prescribed and do not miss any dosages. Also recommend that you stop using methamphetamine as this causes seizures. While in the emergency department you did receive IV Depakote to get your levels within therapeutic range. Recommend follow-up with Ivy Maldonado NP at [facility] in [place] for neurology services. Call to schedule her next available appointment. Your hemoglobin levels were slightly low showing that you are anemic. However you did not have any blood noted in your rectum to suspect that this is due to bleeding. This is likely chronic in origin. You will need to follow-up with your primary care provider for further evaluation of this. Your urine did show that you have a urinary tract infection. You were given an antibiotic while in the emergency department. I have sent a prescription for an antibiotic called nitrofurantoin to [facility] in [place]. You will need to take this medication twice daily until gone. Should your condition worsen or change, do not hesitate returning to the emergency department. Sepsis Event Note (ED) - Focused Exam Vital Signs: Vital Signs Temp Pulse Resp BP Pulse Ox 10/24/21 12:09 96.9 F 52 L 18 160/101 H 100 - My Orders Last 24 Hours: My Active Orders 10/24/21 12:26 Sodium Chloride 0.9% [Saline Flush] 10 ml FLUSH ASDIRECTED PRN Saline Lock Insert [OM.PC] Stat 10/24/21 13:15 CULTURE URINE [MREF] Stat - Assessment/Plan Last 24 Hours: My Active Orders 10/24/21 12:26 Sodium Chloride 0.9% [Saline Flush] 10 ml FLUSH ASDIRECTED PRN Saline Lock Insert [OM.PC] Stat 10/24/21 13:15 CULTURE URINE [MREF] Stat
[2021-10-24] MEDS ORDERED: Valproate Sodium 500 MG in Sodium Chloride 0.9% 100 ML IV ONE ×2 (13:52→14:30)
[2021-10-24] MEDS ORDERED: Nitrofurantoin Monohydrate/Macrocrystalline 100 MG Cap PO ONE (13:54)
[2021-10-24] MEDS ORDERED: Acetaminophen 325 MG Tab PO ONE (14:31)
[2021-10-24] MEDS ORDERED: Ondansetron 4 MG/2 ML SDV IVPUSH ONE (14:31)
[2021-10-24 17:53] VITALS: PULSE 65
== END 2021-10-24 18:15 | disposition home or self-care (01) ==
LOC: JD.ED 11:58
DX: G40.909 Epilepsy, unspecified, not intractable, without status epilepticus (principal); F15.90 Other stimulant use, unspecified, uncomplicated; D64.9 Anemia, unspecified; I10 Essential (primary) hypertension; K21.9 Gastro-esophageal reflux disease without esophagitis; Z88.1 Allergy status to other antibiotic agents; Z88.5 Allergy status to narcotic agent; Z88.8 Allergy status to other drugs, medicaments and biological substances; Z79.899 Other long term (current) drug therapy; Z72.0 Tobacco use
CPT/HCPCS: 36415; 80053; 80164; 80306; 80307; 81001; 83735; 85025; 87086; 87088; 87186; 96365; 96375; 99284; A9270; J2405; J3490

== ENCOUNTER 2022-02-21 12:41 | Emergency (ER) | payer MEDICARE, MEDICAID ==
[2022-02-21 13:31] VITALS: BP 87/58
[2022-02-21] MEDS ORDERED: HYDROmorphone 1 MG/ML Syringe IVPUSH ONE (13:43)
[2022-02-21] MEDS ORDERED: Ondansetron 4 MG/2 ML SDV IVPUSH ONE (13:44)
[2022-02-21] MEDS ORDERED: Dextrose 5%-0.9% NaCl 1,000 ML IV SCH (13:45)
[2022-02-21 15:24] VITALS: PULSE 72
== END 2022-02-21 15:20 | disposition home or self-care (01) ==
LOC: JD.ED 12:41
DX: S20.212A Contusion of left front wall of thorax, initial encounter (principal); I10 Essential (primary) hypertension; K21.9 Gastro-esophageal reflux disease without esophagitis; M19.90 Unspecified osteoarthritis, unspecified site; E11.9 Type 2 diabetes mellitus without complications; Z88.1 Allergy status to other antibiotic agents; Z88.5 Allergy status to narcotic agent; Z88.8 Allergy status to other drugs, medicaments and biological substances; Z79.899 Other long term (current) drug therapy; Z72.0 Tobacco use; W18.40XA Slipping, tripping and stumbling without falling, unspecified, initial encounter; Y92.009 Unspecified place in unspecified non-institutional (private) residence as the place of occurrence of the external cause
CPT/HCPCS: 71250; 96374; 96375; 99285; J1170; J2405; J7042

== ENCOUNTER 2022-03-10 14:59 | Emergency (ER) | payer MEDICARE, MEDICAID ==
[2022-03-10 19:10] VITALS: BP 173/102; PULSE 72
== END 2022-03-10 18:40 | disposition home or self-care (01) ==
LOC: JD.ED 14:59
DX: R07.81 Pleurodynia (principal); K21.9 Gastro-esophageal reflux disease without esophagitis; I10 Essential (primary) hypertension; E11.9 Type 2 diabetes mellitus without complications; F17.210 Nicotine dependence, cigarettes, uncomplicated; Z90.49 Acquired absence of other specified parts of digestive tract; Z90.710 Acquired absence of both cervix and uterus; Z88.1 Allergy status to other antibiotic agents; Z88.6 Allergy status to analgesic agent; Z88.8 Allergy status to other drugs, medicaments and biological substances; Z79.899 Other long term (current) drug therapy
CPT/HCPCS: 71111; 71111-26; 99283-25

== ENCOUNTER 2022-03-27 20:52 | Emergency (ER) | payer MEDICARE, MEDICAID ==
[2022-03-27 22:08] VITALS: BP 101/71; PULSE 65
[2022-03-27] MEDS ORDERED: Acetaminophen 325 MG Tab PO ONE (23:56)
== END 2022-03-28 08:30 | disposition other institution (70) ==
LOC: JD.ED 20:52
DX: F10.10 Alcohol abuse, uncomplicated (principal); K21.9 Gastro-esophageal reflux disease without esophagitis; F17.210 Nicotine dependence, cigarettes, uncomplicated; E11.9 Type 2 diabetes mellitus without complications; Z86.16 Personal history of COVID-19; Z88.1 Allergy status to other antibiotic agents; Z88.5 Allergy status to narcotic agent; Z88.8 Allergy status to other drugs, medicaments and biological substances; Z79.899 Other long term (current) drug therapy; Z20.822 Contact with and (suspected) exposure to COVID-19; Y90.0 Blood alcohol level of less than 20 mg/100 ml
CPT/HCPCS: 36415; 73090; 80053; 80143; 80179; 80306; 80307; 84443; 85025; 99285; A9270; U0002

== ENCOUNTER 2022-04-05 15:33 | Emergency (ER) | payer MEDICARE, MEDICAID ==
[2022-04-05 15:43] VITALS: BP 132/90; PULSE 103
[2022-04-05] MEDS ORDERED: Ibuprofen 400 MG Tab PO ONE (16:51)
== END 2022-04-05 17:30 | disposition home or self-care (01) ==
LOC: JD.ED 15:33
DX: S52.125A Nondisplaced fracture of head of left radius, initial encounter for closed fracture (principal); I10 Essential (primary) hypertension; K21.9 Gastro-esophageal reflux disease without esophagitis; M19.90 Unspecified osteoarthritis, unspecified site; E11.9 Type 2 diabetes mellitus without complications; F17.210 Nicotine dependence, cigarettes, uncomplicated; Z88.1 Allergy status to other antibiotic agents; Z88.5 Allergy status to narcotic agent; Z88.8 Allergy status to other drugs, medicaments and biological substances; W19.XXXA Unspecified fall, initial encounter
CPT/HCPCS: 29105; 99283; A9270; 99282

== ENCOUNTER 2022-09-08 15:37 | Inpatient (IN) | payer MEDICARE, MEDICAID ==
[2022-09-08] MEDS ORDERED: Sodium Chloride 0.9% 10 ML Syringe FLUSH PRN (16:11)
[2022-09-08] MEDS ORDERED: HYDROmorphone 0.5 MG/0.5 ML Syringe IVPUSH ONE (16:11)
[2022-09-08] MEDS ORDERED: Ondansetron 4 MG/2 ML SDV IVPUSH ONE (16:11)
[2022-09-08] MEDS ORDERED: HYDROmorphone 0.5 MG/0.5 ML Syringe IVPUSH PRN (18:23)
[2022-09-08] MEDS ORDERED: cloNIDine 0.1 MG Tab PO PRN (18:29)
[2022-09-08] MEDS ORDERED: ClonazePAM 1 MG Tab PO PRN (18:35)
[2022-09-08] MEDS ORDERED: SUMAtriptan 50 MG Tab PO PRN (18:39)
[2022-09-08] MEDS: oxyCODONE 5 MG Tab PO PRN ×2 (19:32→23:58)
[2022-09-08] MEDS: Cyclobenzaprine 10 MG Tab PO SCH (21:19)
[2022-09-08] MEDS: traZODone 50 MG Tab PO SCH (21:19)
[2022-09-08] MEDS: Pantoprazole 40 MG Tab.CR PO SCH (21:20)
[2022-09-08] MEDS: Gabapentin 600 MG Tab PO SCH (21:20)
[2022-09-08] MEDS: Divalproex Sodium Delayed-Release 250 MG Tab.CR PO SCH (21:20)
[2022-09-08] MEDS: Heparin Sodium 5,000 Units/ML Vial SUBCUT SCH (21:21)
[2022-09-08] MEDS: Acetaminophen 325 MG Tab PO PRN (23:58)
[2022-09-09] MEDS: Acetaminophen 325 MG Tab PO PRN ×2 (04:27→08:14)
[2022-09-09] MEDS: oxyCODONE 5 MG Tab PO PRN ×4 (04:28→21:17)
[2022-09-09] MEDS: Ondansetron 4 MG/2 ML SDV IV PRN ×3 (04:33→16:58)
[2022-09-09] MEDS: Heparin Sodium 5,000 Units/ML Vial SUBCUT SCH ×3 (05:52→21:09)
[2022-09-09] MEDS: Sertraline 50 MG Tab PO SCH (08:12)
[2022-09-09] MEDS: Divalproex Sodium Delayed-Release 250 MG Tab.CR PO SCH ×2 (08:13→20:06)
[2022-09-09] MEDS: Losartan 100 MG Tab PO SCH (08:13)
[2022-09-09] MEDS: Gabapentin 600 MG Tab PO SCH ×3 (08:13→20:06)
[2022-09-09] MEDS: Pantoprazole 40 MG Tab.CR PO SCH ×2 (08:14→20:06)
[2022-09-09] MEDS: Cyclobenzaprine 10 MG Tab PO SCH ×2 (08:15→20:06)
[2022-09-09] MEDS: Furosemide 20 MG Tab PO SCH (08:15)
[2022-09-09] MEDS: HYDROmorphone 0.5 MG/0.5 ML Syringe IVPUSH PRN ×2 (16:58→22:38)
[2022-09-09] MEDS: traZODone 50 MG Tab PO SCH (20:06)
[2022-09-10] MEDS: Heparin Sodium 5,000 Units/ML Vial SUBCUT SCH (05:52)
[2022-09-10] MEDS: Divalproex Sodium Delayed-Release 250 MG Tab.CR PO SCH (07:59)
[2022-09-10] MEDS: Losartan 100 MG Tab PO SCH ×2 (07:59→08:01)
[2022-09-10] MEDS: Gabapentin 600 MG Tab PO SCH (07:59)
[2022-09-10] MEDS: Cyclobenzaprine 10 MG Tab PO SCH (07:59)
[2022-09-10] MEDS: Furosemide 20 MG Tab PO SCH (07:59)
[2022-09-10] MEDS: Sertraline 50 MG Tab PO SCH (08:00)
[2022-09-10] MEDS: HYDROmorphone 0.5 MG/0.5 ML Syringe IVPUSH PRN ×2 (08:00→13:24)
[2022-09-10] MEDS: Pantoprazole 40 MG Tab.CR PO SCH (08:00)
[2022-09-10 08:01] VITALS: BP 103/72
[2022-09-10 08:15] VITALS: PULSE 71
== END 2022-09-10 13:30 | disposition home or self-care (01) | DRG 200 ==
LOC: JD.ED 15:37 → JD.MS 18:21
PROVIDERS: ADMIT Surgery; ATTEND Surgery
DX: S27.0XXA Traumatic pneumothorax, initial encounter (principal); S22.41XA Multiple fractures of ribs, right side, initial encounter for closed fracture; F31.70 Bipolar disorder, currently in remission, most recent episode unspecified; G89.4 Chronic pain syndrome; M19.90 Unspecified osteoarthritis, unspecified site; G47.30 Sleep apnea, unspecified; F41.9 Anxiety disorder, unspecified; E61.1 Iron deficiency; I10 Essential (primary) hypertension; K21.9 Gastro-esophageal reflux disease without esophagitis; E11.9 Type 2 diabetes mellitus without complications; F17.210 Nicotine dependence, cigarettes, uncomplicated; Z87.440 Personal history of urinary (tract) infections; Z79.899 Other long term (current) drug therapy; Z98.84 Bariatric surgery status; Z88.1 Allergy status to other antibiotic agents; Z88.5 Allergy status to narcotic agent; Z88.6 Allergy status to analgesic agent; Z86.718 Personal history of other venous thrombosis and embolism; Z79.01 Long term (current) use of anticoagulants; Z90.710 Acquired absence of both cervix and uterus; Z90.49 Acquired absence of other specified parts of digestive tract; W01.0XXA Fall on same level from slipping, tripping and stumbling without subsequent striking against object, initial encounter; Y93.41 Activity, dancing
CPT/HCPCS: 36415; 71250; 80053; 85025; J1170; J2405; J3490; 71045; 71045-26; 94761; A9270-GY; J1644

== ENCOUNTER 2023-07-19 13:28 | Emergency (ER) | payer MEDICARE ==
[2023-07-19 14:04] VITALS: PULSE 98
[2023-07-19] MEDS ORDERED: Sodium Chloride 0.9% 1,000 ML IV STA (15:54)
[2023-07-19] MEDS ORDERED: Acetaminophen 325 MG Tab PO ONE (15:54)
[2023-07-19] MEDS ORDERED: LORazepam 2 MG/ML SDV IVPUSH ONE (15:55)
[2023-07-19 16:17] LABS: BASOPHILS PERCENT AUTO 0.6 % (0.0-1.0); EOSINOPHILS PERCENT AUTO 0.6 % (0.0-6.0); HEMATOCRIT 29.6 % (37.0-47.0); IMMATURE GRAN ABSOLUTE AUTO 0.01 K/mm3 (0.00-0.05); IMMATURE GRAN PERCENT AUTO 0.2 % (0.0-0.4); LYMPHOCYTES ABSOLUTE AUTO 1.8 K/mm3 (1.0-4.8); MEAN CORPUSCULAR HGB CONC 33.8 g/dl (32.0-36.0); MEAN CORPUSCULAR VOLUME 97.7 fl (83.0-99.0); MEAN PLATELET VOLUME 9.9 fl (9.4-12.3); MONOCYTES ABSOLUTE AUTO 0.8 K/mm3 (0.0-0.8); MONOCYTES PERCENT AUTO 15.7 % (0.0-8.0); NEUTROPHILS ABSOLUTE AUTO 2.7 K/mm3 (1.8-7.7); NEUTROPHILS PERCENT AUTO 49.9 % (41.0-71.0); PLATELET COUNT,PLT 191 K/mm3 (150-400); RED BLOOD CELL COUNT 3.03 M/mm3 (4.10-5.30); WHITE BLOOD CELL COUNT,WBC 5.34 K/mm3 (3.9-11.3)
[2023-07-19] MEDS ORDERED: Divalproex Sodium Delayed-Release 500 MG Tab.CR PO ONE (16:20)
[2023-07-19] MEDS ORDERED: Divalproex Sodium Delayed-Release 250 MG Tab.CR PO ONE (16:21)
[2023-07-19] MEDS ORDERED: LORazepam 1 MG Tab PO ONE (16:25)
[2023-07-19 16:48] LABS: A/G RATIO 0.8 (1-2); ALBUMIN 2.7 g/dl (3.4-5.0); ANION GAP 11.3 (5-15); BILIRUBIN TOTAL 0.4 mg/dL (0.2-1.0); BUN/CREATININE RATIO 21.8 (14-18); CALCIUM 8.6 mg/dL (8.5-10.1); CREATININE 1.1 mg/dL (0.55-1.02); EST CRCL DRUG DOSING (CG) 45.76 mL/min; POTASSIUM,K 3.3 mEq/L (3.5-5.1); PROTEIN TOTAL,TP 6.1 g/dl (6.4-8.2); TSH 3.01 uIU/mL (0.358-3.74)
[2023-07-19 17:26] LABS: BARBITURATE SCREEN,URINE NEGATIVE (CUTOFF=200); BENZODIAZEPINES SCREEN,URINE PRESUMPTIVE POSITIVE (CUTOFF=150); BUPRENORPHINE SCREEN,URINE NEGATIVE (CUTOFF=10); METHADONE SCREEN, URINE NEGATIVE (CUTOFF=200); METHAMPHETAMINES SCREEN, URINE PRESUMPTIVE POSITIVE (CUTOFF=500); OXYCODONE SCREEN,URINE NEGATIVE (CUT0FF=100); PROPOXYPHENE SCREEN,URINE NEGATIVE (CUTOFF=300); THC SCREEN,URINE 20 NG/ML PRESUMPTIVE POSITIVE (CUTOFF=50)
[2023-07-19 17:28] LABS: AMPHETAMINES SCREEN, URINE PRESUMPTIVE POSITIVE (CUTOFF=500)
[2023-07-19] MEDS ORDERED: Nicotine 14 MG/24 Hr Patch TRDERM ONE (18:26)
[2023-07-19] MEDS ORDERED: Gabapentin 600 MG Tab PO ONE (18:27)
[2023-07-19] MEDS ORDERED: Cyclobenzaprine 10 MG Tab PO ONE (18:27)
[2023-07-19] MEDS ORDERED: ClonazePAM 1 MG Tab PO ONE (19:29)
[2023-07-19 19:46] VITALS: BP 141/87
== END 2023-07-19 19:58 | disposition other institution (70) ==
LOC: JD.ED 13:28
DX: F22 Delusional disorders (principal); F15.90 Other stimulant use, unspecified, uncomplicated; K21.9 Gastro-esophageal reflux disease without esophagitis; I10 Essential (primary) hypertension; E11.9 Type 2 diabetes mellitus without complications; Z88.1 Allergy status to other antibiotic agents; Z88.5 Allergy status to narcotic agent; Z88.8 Allergy status to other drugs, medicaments and biological substances; Z79.899 Other long term (current) drug therapy; Z86.16 Personal history of COVID-19; Z90.49 Acquired absence of other specified parts of digestive tract; Z90.710 Acquired absence of both cervix and uterus
CPT/HCPCS: 36415; 80053; 80143; 80179; 80306; 80307; 84443; 85025; 99284; A9270-GY

== ENCOUNTER 2023-07-23 13:25 | Emergency (ER) | payer MEDICARE ==
[2023-07-23] MEDS ORDERED: Sodium Chloride 0.9% 1,000 ML IV SCH (14:15)
[2023-07-23 14:29] LABS: BASOPHILS PERCENT AUTO 0.4 % (0.0-1.0); EOSINOPHILS ABSOLUTE AUTO 0.1 K/mm3 (0.0-0.4); EOSINOPHILS PERCENT AUTO 1.9 % (0.0-6.0); HEMATOCRIT 35.3 % (37.0-47.0); HEMOGLOBIN 10.9 gm/dl (12.0-16.0); IMMATURE GRAN ABSOLUTE AUTO 0.01 K/mm3 (0.00-0.05); IMMATURE GRAN PERCENT AUTO 0.2 % (0.0-0.4); LYMPHOCYTES ABSOLUTE AUTO 1.4 K/mm3 (1.0-4.8); LYMPHOCYTES PERCENT AUTO 30.7 % (24.0-44.0); MEAN CORPUSCULAR HEMOGLOBIN 32.4 pg (28.0-32.0); MEAN CORPUSCULAR HGB CONC 30.9 g/dl (32.0-36.0); MEAN PLATELET VOLUME 9.9 fl (9.4-12.3); MONOCYTES ABSOLUTE AUTO 0.5 K/mm3 (0.0-0.8); MONOCYTES PERCENT AUTO 10.6 % (0.0-8.0); NEUTROPHILS ABSOLUTE AUTO 2.6 K/mm3 (1.8-7.7); NEUTROPHILS PERCENT AUTO 56.2 % (41.0-71.0); PLATELET COUNT,PLT 164 K/mm3 (150-400); RED BLOOD CELL COUNT 3.36 M/mm3 (4.10-5.30); WHITE BLOOD CELL COUNT,WBC 4.62 K/mm3 (3.9-11.3)
[2023-07-23 14:33] LABS: MEAN CORPUSCULAR VOLUME 105.1 fl (83.0-99.0)
[2023-07-23 14:57] LABS: A/G RATIO 0.7 (1-2); ALBUMIN 2.4 g/dl (3.4-5.0); ANION GAP 10.2 (5-15); BILIRUBIN TOTAL 0.3 mg/dL (0.2-1.0); BUN/CREATININE RATIO 22.7 (14-18); C-REACTIVE PROTEIN 0.2 mg/dL (<1.0); CALCIUM 8.3 mg/dL (8.5-10.1); CREATININE 1.1 mg/dL (0.55-1.02); EST CRCL DRUG DOSING (CG) 49.61 mL/min; POTASSIUM,K 4.2 mEq/L (3.5-5.1); PROTEIN TOTAL,TP 5.9 g/dl (6.4-8.2)
[2023-07-23 15:05] LABS: CORONAVIRUS COVID-19 NAA NEGATIVE (NEGATIVE); INFLUENZA A NAA NEGATIVE (NEGATIVE)
[2023-07-23 15:51] VITALS: BP 147/87
[2023-07-23 17:52] LABS: APPEARANCE,URINE CLEAR (Clear); BILIRUBIN,URINE NEGATIVE (Negative); COLOR,URINE YELLOW (Yellow); GLUCOSE,URINE NEGATIVE (Negative); KETONES,URINE NEGATIVE (Negative); LEUKOCYTE ESTERASE,URINE TRACE (Negative); NITRITE,URINE POSITIVE (Negative); OCCULT BLOOD,URINE NEGATIVE (Negative); PROTEIN,URINE NEGATIVE (Negative); UROBILINOGEN,URINE 0.2 (0.2-1.0)
[2023-07-23 18:11] LABS: BACTERIA,URINE MANY /hpf (FEW); MUCUS,URINE FEW /hpf (FEW); RBC,URINE 0-5 /hpf (0-5)
[2023-07-23] MEDS ORDERED: Sulfamethoxazole/Trimethoprim 800-160 MG Tab PO ONE (18:44)
[2023-07-23 19:57] LABS: BARBITURATE SCREEN,URINE NEGATIVE (CUTOFF=200); BENZODIAZEPINES SCREEN,URINE NEGATIVE (CUTOFF=150); BUPRENORPHINE SCREEN,URINE NEGATIVE (CUTOFF=10); METHADONE SCREEN, URINE NEGATIVE (CUTOFF=200); METHAMPHETAMINES SCREEN, URINE PRESUMPTIVE POSITIVE (CUTOFF=500); OXYCODONE SCREEN,URINE NEGATIVE (CUT0FF=100); PROPOXYPHENE SCREEN,URINE NEGATIVE (CUTOFF=300); THC SCREEN,URINE 20 NG/ML NEGATIVE (CUTOFF=50)
[2023-07-23 19:59] LABS: AMPHETAMINES SCREEN, URINE PRESUMPTIVE POSITIVE (CUTOFF=500)
[2023-07-23 20:19] VITALS: PULSE 64
== END 2023-07-23 20:49 | disposition home or self-care (01) ==
LOC: JD.ED 13:25
DX: N39.0 Urinary tract infection, site not specified (principal); I10 Essential (primary) hypertension; F17.210 Nicotine dependence, cigarettes, uncomplicated; Z88.1 Allergy status to other antibiotic agents; Z20.822 Contact with and (suspected) exposure to COVID-19; Z86.16 Personal history of COVID-19; Z88.5 Allergy status to narcotic agent; Z88.8 Allergy status to other drugs, medicaments and biological substances; Z88.6 Allergy status to analgesic agent; Z79.899 Other long term (current) drug therapy
CPT/HCPCS: 0240U; 36415; 80053; 80306; 81001; 82947; 85025; 86140; 87086; 87088; 87186; 96360; 99284; A9270; J7030; 99283

== ENCOUNTER 2023-07-26 22:41 | Emergency (ER) | payer MEDICARE ==
[2023-07-27] MEDS ORDERED: LORazepam 2 MG/ML SDV IVPUSH ONE (00:11)
[2023-07-27] MEDS ORDERED: Metoclopramide 10 MG/2 ML SDV IVPUSH ONE ×4 (00:11→10:12)
[2023-07-27] MEDS: Dextrose 5%-Lactated Ringers 1,000 ML IV SCH ×2 (01:02→04:50)
[2023-07-27 01:07] LABS: BASOPHILS PERCENT AUTO 0.5 % (0.0-1.0); EOSINOPHILS ABSOLUTE AUTO 0.1 K/mm3 (0.0-0.4); EOSINOPHILS PERCENT AUTO 1.1 % (0.0-6.0); HEMATOCRIT 34.7 % (37.0-47.0); HEMOGLOBIN 11.3 gm/dl (12.0-16.0); IMMATURE GRAN ABSOLUTE AUTO 0.02 K/mm3 (0.00-0.05); IMMATURE GRAN PERCENT AUTO 0.5 % (0.0-0.4); LYMPHOCYTES ABSOLUTE AUTO 1.6 K/mm3 (1.0-4.8); LYMPHOCYTES PERCENT AUTO 36.2 % (24.0-44.0); MEAN CORPUSCULAR HGB CONC 32.6 g/dl (32.0-36.0); MEAN CORPUSCULAR VOLUME 101.5 fl (83.0-99.0); MEAN PLATELET VOLUME 9.7 fl (9.4-12.3); MONOCYTES ABSOLUTE AUTO 0.6 K/mm3 (0.0-0.8); MONOCYTES PERCENT AUTO 13.5 % (0.0-8.0); NEUTROPHILS ABSOLUTE AUTO 2.1 K/mm3 (1.8-7.7); NEUTROPHILS PERCENT AUTO 48.2 % (41.0-71.0); PLATELET COUNT,PLT 207 K/mm3 (150-400); RED BLOOD CELL COUNT 3.42 M/mm3 (4.10-5.30); WHITE BLOOD CELL COUNT,WBC 4.37 K/mm3 (3.9-11.3)
[2023-07-27 01:24] LABS: INR 1.07; PROTHROMBIN TIME 11.4 SECONDS (9.7-12.0)
[2023-07-27 01:33] LABS: A/G RATIO 0.7 (1-2); ALANINE AMINOTRANSFERASE,ALT 47 U/L (14-59); ALBUMIN 2.6 g/dl (3.4-5.0); ALKALINE PHOSPHATASE 58 U/L (46-116); ANION GAP 8.3 (5-15); ASPARTATE AMNIOTRANSFERASE,AST 55 U/L (15-37); BILIRUBIN TOTAL 0.3 mg/dL (0.2-1.0); BLOOD UREA NITROGEN,BUN 32 mg/dL (7-18); C-REACTIVE PROTEIN <0.2 mg/dL (<1.0); CALCIUM 8.5 mg/dL (8.5-10.1); CARBON DIOXIDE,CO2 30 mEq/L (21-32); CHLORIDE,CL 99 mEq/L (98-107); CREATININE 1.6 mg/dL (0.55-1.02); EST CRCL DRUG DOSING (CG) 34.57 mL/min; ESTIMATED GFR 36 mL/min (>60); GLUCOSE RANDOM 83 mg/dL (70-99); LIPASE 78 U/L (73-393); MAGNESIUM 1.9 mg/dL (1.8-2.4); POTASSIUM,K 4.3 mEq/L (3.5-5.1); PROTEIN TOTAL,TP 6.3 g/dl (6.4-8.2); SODIUM,NA 133 mEq/L (136-145); VALPROIC ACID 62.9 ug/mL (50.0-100.0)
[2023-07-27 07:41] LABS: APPEARANCE,URINE SLT CLOUDY (Clear); BILIRUBIN,URINE 1+ (Negative); COLOR,URINE YELLOW (Yellow); GLUCOSE,URINE NEGATIVE (Negative); KETONES,URINE TRACE (Negative); LEUKOCYTE ESTERASE,URINE NEGATIVE (Negative); NITRITE,URINE POSITIVE (Negative); OCCULT BLOOD,URINE NEGATIVE (Negative); PH,URINE 5.5 (5.0-8.0); PROTEIN,URINE NEGATIVE (Negative); UROBILINOGEN,URINE 0.2 (0.2-1.0)
[2023-07-27 08:24] LABS: BACTERIA,URINE MANY /hpf (FEW); CALCIUM OXALATE CRYSTALS,URINE MANY; HYALINE CASTS,URINE 0-5 /lpf (0-5); MUCUS,URINE NOT SEEN /hpf (FEW); RBC,URINE 0-5 /hpf (0-5); SQUAMOUS EPITHELIAL CELLS,UR 0-5 /hpf (0-5); WBC,URINE 0-5 /hpf (0-5)
[2023-07-27] MEDS ORDERED: Ondansetron 4 MG/2 ML SDV IVPUSH ONE (09:29)
[2023-07-27 12:42] VITALS: BP 101/64; PULSE 84
== END 2023-07-27 13:22 | disposition home or self-care (01) ==
LOC: JD.ED 22:41
DX: R07.89 Other chest pain (principal); E86.9 Volume depletion, unspecified; E87.1 Hypo-osmolality and hyponatremia; F41.9 Anxiety disorder, unspecified; E11.9 Type 2 diabetes mellitus without complications; K21.9 Gastro-esophageal reflux disease without esophagitis; I10 Essential (primary) hypertension; Z86.16 Personal history of COVID-19; Z86.718 Personal history of other venous thrombosis and embolism; Z79.899 Other long term (current) drug therapy; Z88.5 Allergy status to narcotic agent; Z88.6 Allergy status to analgesic agent; Z88.8 Allergy status to other drugs, medicaments and biological substances
CPT/HCPCS: 36415; 80053; 80164; 80307; 81001; 82009; 82947; 83690; 83735; 85025; 85610; 85730; 86140; 96361; 96374; 96375; 96376; 99284; J2060; J2405; J2765; J7121

== ENCOUNTER 2023-08-13 02:03 | Emergency (ER) | payer MEDICAID, MEDICARE ==
[2023-08-13] MEDS ORDERED: LORazepam 1 MG Tab PO ONE (03:36)
[2023-08-13 03:43] LABS: BASOPHILS ABSOLUTE AUTO 0.1 K/mm3 (0.0-0.2); BASOPHILS PERCENT AUTO 0.7 % (0.0-1.0); EOSINOPHILS ABSOLUTE AUTO 0.1 K/mm3 (0.0-0.4); HEMATOCRIT 32.1 % (37.0-47.0); HEMOGLOBIN 10.2 gm/dl (12.0-16.0); IMMATURE GRAN ABSOLUTE AUTO 0.02 K/mm3 (0.00-0.05); IMMATURE GRAN PERCENT AUTO 0.3 % (0.0-0.4); LYMPHOCYTES ABSOLUTE AUTO 2.3 K/mm3 (1.0-4.8); MEAN CORPUSCULAR HEMOGLOBIN 32.8 pg (28.0-32.0); MEAN CORPUSCULAR HGB CONC 31.8 g/dl (32.0-36.0); MEAN CORPUSCULAR VOLUME 103.2 fl (83.0-99.0); MEAN PLATELET VOLUME 9.4 fl (9.4-12.3); MONOCYTES PERCENT AUTO 13.3 % (0.0-8.0); NEUTROPHILS ABSOLUTE AUTO 3.8 K/mm3 (1.8-7.7); NEUTROPHILS PERCENT AUTO 52.7 % (41.0-71.0); PLATELET COUNT,PLT 255 K/mm3 (150-400); RED BLOOD CELL COUNT 3.11 M/mm3 (4.10-5.30); WHITE BLOOD CELL COUNT,WBC 7.27 K/mm3 (3.9-11.3)
[2023-08-13 03:44] LABS: APPEARANCE,URINE CLOUDY (Clear); BILIRUBIN,URINE NEGATIVE (Negative); COLOR,URINE YELLOW (Yellow); GLUCOSE,URINE NEGATIVE (Negative); KETONES,URINE 1+ (Negative); LEUKOCYTE ESTERASE,URINE 1+ (Negative); NITRITE,URINE NEGATIVE (Negative); OCCULT BLOOD,URINE NEGATIVE (Negative); PH,URINE 7.5 (5.0-8.0); PROTEIN,URINE 1+ (Negative)
[2023-08-13 03:55] LABS: BARBITURATE SCREEN,URINE NEGATIVE (CUTOFF=200); BENZODIAZEPINES SCREEN,URINE NEGATIVE (CUTOFF=150); BUPRENORPHINE SCREEN,URINE NEGATIVE (CUTOFF=10); METHADONE SCREEN, URINE NEGATIVE (CUTOFF=200); METHAMPHETAMINES SCREEN, URINE PRESUMPTIVE POSITIVE (CUTOFF=500); OXYCODONE SCREEN,URINE NEGATIVE (CUT0FF=100); PROPOXYPHENE SCREEN,URINE NEGATIVE (CUTOFF=300); THC SCREEN,URINE 20 NG/ML PRESUMPTIVE POSITIVE (CUTOFF=50)
[2023-08-13 03:59] LABS: RBC,URINE 0-5 /hpf (0-5)
[2023-08-13 04:00] LABS: BACTERIA,URINE MANY /hpf (FEW); EPITHELIAL CELLS,URINE 0-5 /hpf (0-5); MUCUS,URINE NOT SEEN /hpf (FEW)
[2023-08-13 04:06] LABS: AMPHETAMINES SCREEN, URINE PRESUMPTIVE POSITIVE (CUTOFF=500)
[2023-08-13 04:13] LABS: A/G RATIO 0.9 (1-2); ALBUMIN 3.5 g/dl (3.4-5.0); ANION GAP 13.8 (5-15); BILIRUBIN TOTAL 0.3 mg/dL (0.2-1.0); BUN/CREATININE RATIO 17.5 (14-18); CREATININE 1.2 mg/dL (0.55-1.02); EST CRCL DRUG DOSING (CG) 46.09 mL/min; INR 1.07; POTASSIUM,K 3.8 mEq/L (3.5-5.1); PROTEIN TOTAL,TP 7.4 g/dl (6.4-8.2); PROTHROMBIN TIME 11.4 SECONDS (9.7-12.0); TSH 3.01 uIU/mL (0.358-3.74)
[2023-08-13] MEDS ORDERED: Nitrofurantoin Monohydrate/Macrocrystalline 100 MG Cap PO SCH (09:00)
[2023-08-13] MEDS ORDERED: Loperamide 2 MG Cap PO ONE (10:58)
[2023-08-13] MEDS ORDERED: Cyclobenzaprine 10 MG Tab PO ONE (10:58)
[2023-08-13] MEDS ORDERED: Acetaminophen/HYDROcodone 325-5 MG Tab PO ONE (17:11)
[2023-08-13 20:19] VITALS: BP 145/126; PULSE 85
== END 2023-08-13 17:44 ==
LOC: JD.ED 02:03
DX: F22 Delusional disorders (principal); F10.139 Alcohol abuse with withdrawal, unspecified; F19.10 Other psychoactive substance abuse, uncomplicated; I10 Essential (primary) hypertension; K21.9 Gastro-esophageal reflux disease without esophagitis; E11.9 Type 2 diabetes mellitus without complications; F17.210 Nicotine dependence, cigarettes, uncomplicated; Z86.16 Personal history of COVID-19; Z88.1 Allergy status to other antibiotic agents; Z88.6 Allergy status to analgesic agent; Z88.5 Allergy status to narcotic agent; Z88.8 Allergy status to other drugs, medicaments and biological substances; Z79.899 Other long term (current) drug therapy
CPT/HCPCS: 36415; 80053; 80143; 80179; 80306; 80307; 81001; 84443; 85025; 85610; 87086; 87088; 87186; 99284; A9270; 99283

== ENCOUNTER 2023-08-17 07:47 | Emergency (ER) | payer MEDICARE ==
[2023-08-17] MEDS ORDERED: Dextrose 5%-0.9% NaCl 1,000 ML IV SCH (08:15)
[2023-08-17 09:06] LABS: EOSINOPHILS ABSOLUTE AUTO 0.3 K/mm3 (0.0-0.4); HEMATOCRIT 32.4 % (37.0-47.0); IMMATURE GRAN ABSOLUTE AUTO 0.01 K/mm3 (0.00-0.05); IMMATURE GRAN PERCENT AUTO 0.3 % (0.0-0.4); LYMPHOCYTES ABSOLUTE AUTO 0.4 K/mm3 (1.0-4.8); LYMPHOCYTES PERCENT AUTO 14.8 % (24.0-44.0); MEAN CORPUSCULAR HGB CONC 30.9 g/dl (32.0-36.0); MEAN CORPUSCULAR VOLUME 106.9 fl (83.0-99.0); MEAN PLATELET VOLUME 9.7 fl (9.4-12.3); MONOCYTES ABSOLUTE AUTO 0.4 K/mm3 (0.0-0.8); MONOCYTES PERCENT AUTO 14.5 % (0.0-8.0); NEUTROPHILS ABSOLUTE AUTO 1.8 K/mm3 (1.8-7.7); NEUTROPHILS PERCENT AUTO 60.4 % (41.0-71.0); PLATELET COUNT,PLT 153 K/mm3 (150-400); RED BLOOD CELL COUNT 3.03 M/mm3 (4.10-5.30)
[2023-08-17 09:25] LABS: INR 1.08; PROTHROMBIN TIME 11.5 SECONDS (9.7-12.0)
[2023-08-17 09:50] LABS: APPEARANCE,URINE CLEAR (Clear); BILIRUBIN,URINE NEGATIVE (Negative); COLOR,URINE YELLOW (Yellow); GLUCOSE,URINE NEGATIVE (Negative); KETONES,URINE NEGATIVE (Negative); LEUKOCYTE ESTERASE,URINE NEGATIVE (Negative); NITRITE,URINE NEGATIVE (Negative); OCCULT BLOOD,URINE NEGATIVE (Negative); PH,URINE 5.5 (5.0-8.0); PROTEIN,URINE NEGATIVE (Negative); UROBILINOGEN,URINE 0.2 (0.2-1.0)
[2023-08-17 09:56] LABS: BARBITURATE SCREEN,URINE NEGATIVE (CUTOFF=200); BENZODIAZEPINES SCREEN,URINE PRESUMPTIVE POSITIVE (CUTOFF=150); BUPRENORPHINE SCREEN,URINE NEGATIVE (CUTOFF=10); METHADONE SCREEN, URINE NEGATIVE (CUTOFF=200); METHAMPHETAMINES SCREEN, URINE PRESUMPTIVE POSITIVE (CUTOFF=500); OXYCODONE SCREEN,URINE NEGATIVE (CUT0FF=100); PROPOXYPHENE SCREEN,URINE NEGATIVE (CUTOFF=300); THC SCREEN,URINE 20 NG/ML NEGATIVE (CUTOFF=50)
[2023-08-17 10:03] LABS: A/G RATIO 0.8 (1-2); ALBUMIN 2.7 g/dl (3.4-5.0); ANION GAP 10.5 (5-15); BILIRUBIN TOTAL 0.4 mg/dL (0.2-1.0); BUN/CREATININE RATIO 19.2 (14-18); C-REACTIVE PROTEIN 2.4 mg/dL (<1.0); CALCIUM 8.3 mg/dL (8.5-10.1); CREATININE 1.2 mg/dL (0.55-1.02); EST CRCL DRUG DOSING (CG) 45.83 mL/min; MAGNESIUM 1.6 mg/dL (1.8-2.4); POTASSIUM,K 3.5 mEq/L (3.5-5.1); PROTEIN TOTAL,TP 6.2 g/dl (6.4-8.2); VALPROIC ACID 52.7 ug/mL (50.0-100.0)
[2023-08-17 10:26] LABS: AMPHETAMINES SCREEN, URINE PRESUMPTIVE POSITIVE (CUTOFF=500)
[2023-08-17 10:51] LABS: BACTERIA,URINE FEW /hpf (FEW); HYALINE CASTS,URINE 20-30 /lpf (0-5); MUCUS,URINE FEW /hpf (FEW); RBC,URINE 0-5 /hpf (0-5); RENAL EPITHELIAL CELLS,URINE 0-5 /hpf (0-5); SQUAMOUS EPITHELIAL CELLS,UR 0-5 /hpf (0-5); WBC CLUMPS,URINE RARE /hpf (NOT SEEN); WBC,URINE 0-5 /hpf (0-5)
[2023-08-17] MEDS ORDERED: Lactated Ringers 1,000 ML IV SCH (11:00)
[2023-08-17] MEDS ORDERED: Magnesium Sulfate/Water 2 GM in Premix Bag 1 BAG IV ONE (11:23)
[2023-08-17 19:44] VITALS: BP 129/78; PULSE 70
== END 2023-08-17 15:30 | disposition home or self-care (01) ==
LOC: JD.ED 07:47
DX: E86.0 Dehydration (principal); I95.1 Orthostatic hypotension; L28.0 Lichen simplex chronicus; I10 Essential (primary) hypertension; Z88.1 Allergy status to other antibiotic agents; Z88.5 Allergy status to narcotic agent; Z88.8 Allergy status to other drugs, medicaments and biological substances
CPT/HCPCS: 36415; 70450; 71045; 80053; 80164; 80306; 81001; 82009; 83605; 83735; 83880; 84484; 85025; 85610; 85730; 86140; 87040; 96361; 96365; 96366; 99285; J3475; J7042; J7120; 93010; 99283

== ENCOUNTER 2023-08-18 15:33 | Emergency (ER) | payer MEDICARE ==
[2023-08-18] MEDS ORDERED: Lactated Ringers 1,000 ML IV ONE (16:09)
[2023-08-18 16:26] LABS: EOSINOPHILS ABSOLUTE AUTO 0.2 K/mm3 (0.0-0.4); EOSINOPHILS PERCENT AUTO 8.2 % (0.0-6.0); HEMATOCRIT 30.5 % (37.0-47.0); HEMOGLOBIN 9.7 gm/dl (12.0-16.0); IMMATURE GRAN ABSOLUTE AUTO 0.01 K/mm3 (0.00-0.05); IMMATURE GRAN PERCENT AUTO 0.3 % (0.0-0.4); LYMPHOCYTES ABSOLUTE AUTO 0.9 K/mm3 (1.0-4.8); LYMPHOCYTES PERCENT AUTO 30.5 % (24.0-44.0); MEAN CORPUSCULAR HEMOGLOBIN 32.9 pg (28.0-32.0); MEAN CORPUSCULAR HGB CONC 31.8 g/dl (32.0-36.0); MEAN CORPUSCULAR VOLUME 103.4 fl (83.0-99.0); MEAN PLATELET VOLUME 9.7 fl (9.4-12.3); MONOCYTES ABSOLUTE AUTO 0.5 K/mm3 (0.0-0.8); MONOCYTES PERCENT AUTO 16.1 % (0.0-8.0); NEUTROPHILS ABSOLUTE AUTO 1.3 K/mm3 (1.8-7.7); NEUTROPHILS PERCENT AUTO 43.9 % (41.0-71.0); PLATELET COUNT,PLT 135 K/mm3 (150-400); RED BLOOD CELL COUNT 2.95 M/mm3 (4.10-5.30); WHITE BLOOD CELL COUNT,WBC 2.92 K/mm3 (3.9-11.3)
[2023-08-18 17:43] LABS: A/G RATIO 0.7 (1-2); ALBUMIN 2.7 g/dl (3.4-5.0); ANION GAP 14.8 (5-15); BILIRUBIN TOTAL 0.3 mg/dL (0.2-1.0); CALCIUM 8.2 mg/dL (8.5-10.1); EST CRCL DRUG DOSING (CG) 54.74 mL/min; ETHANOL BLOOD MEDICAL 0.09 gm% (0.00); POTASSIUM,K 2.8 mEq/L (3.5-5.1); PROTEIN TOTAL,TP 6.4 g/dl (6.4-8.2)
[2023-08-18] MEDS ORDERED: NS with KCl 40mEq 1,000 ML IV SCH (18:00)
[2023-08-18] MEDS ORDERED: Potassium Chloride 20 MEQ Tab.ER PO ONE (18:01)
[2023-08-18 18:26] LABS: BARBITURATE SCREEN,URINE NEGATIVE (CUTOFF=200); BENZODIAZEPINES SCREEN,URINE PRESUMPTIVE POSITIVE (CUTOFF=150); BUPRENORPHINE SCREEN,URINE NEGATIVE (CUTOFF=10); METHADONE SCREEN, URINE NEGATIVE (CUTOFF=200); METHAMPHETAMINES SCREEN, URINE PRESUMPTIVE POSITIVE (CUTOFF=500); OXYCODONE SCREEN,URINE NEGATIVE (CUT0FF=100); PROPOXYPHENE SCREEN,URINE NEGATIVE (CUTOFF=300); THC SCREEN,URINE 20 NG/ML NEGATIVE (CUTOFF=50)
[2023-08-18 18:27] LABS: AMPHETAMINES SCREEN, URINE PRESUMPTIVE POSITIVE (CUTOFF=500)
[2023-08-18 22:40] VITALS: BP 155/82; PULSE 88
== END 2023-08-18 23:42 | disposition home or self-care (01) ==
LOC: JD.ED 15:33
DX: F10.939 Alcohol use, unspecified with withdrawal, unspecified (principal); I10 Essential (primary) hypertension; K21.9 Gastro-esophageal reflux disease without esophagitis; E11.9 Type 2 diabetes mellitus without complications; F17.210 Nicotine dependence, cigarettes, uncomplicated; Z88.1 Allergy status to other antibiotic agents; Z88.5 Allergy status to narcotic agent; Z88.6 Allergy status to analgesic agent; Z88.8 Allergy status to other drugs, medicaments and biological substances; Z79.899 Other long term (current) drug therapy; Z86.16 Personal history of COVID-19; Z90.49 Acquired absence of other specified parts of digestive tract; Z90.710 Acquired absence of both cervix and uterus
CPT/HCPCS: 36415; 80053; 80306; 80307; 85025; 96361; 96365; 96366; 99284; A9270; J3480; J7120; 99283

== ENCOUNTER 2023-08-20 17:40 | Emergency (ER) | payer MEDICARE ==
[2023-08-20] MEDS ORDERED: Sodium Chloride 0.9% 10 ML Syringe FLUSH PRN (17:54)
[2023-08-20] MEDS ORDERED: LORazepam 2 MG/ML SDV IVPUSH ONE (17:55)
[2023-08-20 18:20] LABS: BASOPHILS PERCENT AUTO 0.2 % (0.0-1.0); EOSINOPHILS ABSOLUTE AUTO 0.1 K/mm3 (0.0-0.4); EOSINOPHILS PERCENT AUTO 2.7 % (0.0-6.0); HEMATOCRIT 29.9 % (37.0-47.0); HEMOGLOBIN 9.4 gm/dl (12.0-16.0); IMMATURE GRAN ABSOLUTE AUTO 0.02 K/mm3 (0.00-0.05); IMMATURE GRAN PERCENT AUTO 0.4 % (0.0-0.4); LYMPHOCYTES ABSOLUTE AUTO 0.3 K/mm3 (1.0-4.8); LYMPHOCYTES PERCENT AUTO 6.6 % (24.0-44.0); MEAN CORPUSCULAR HEMOGLOBIN 32.4 pg (28.0-32.0); MEAN CORPUSCULAR HGB CONC 31.4 g/dl (32.0-36.0); MEAN CORPUSCULAR VOLUME 103.1 fl (83.0-99.0); MONOCYTES ABSOLUTE AUTO 0.6 K/mm3 (0.0-0.8); MONOCYTES PERCENT AUTO 12.1 % (0.0-8.0); NEUTROPHILS ABSOLUTE AUTO 3.7 K/mm3 (1.8-7.7); PLATELET COUNT,PLT 141 K/mm3 (150-400); WHITE BLOOD CELL COUNT,WBC 4.73 K/mm3 (3.9-11.3)
[2023-08-20 18:34] LABS: BARBITURATE SCREEN,URINE NEGATIVE (CUTOFF=200); BENZODIAZEPINES SCREEN,URINE PRESUMPTIVE POSITIVE (CUTOFF=150); BUPRENORPHINE SCREEN,URINE NEGATIVE (CUTOFF=10); METHADONE SCREEN, URINE NEGATIVE (CUTOFF=200); METHAMPHETAMINES SCREEN, URINE PRESUMPTIVE POSITIVE (CUTOFF=500); OXYCODONE SCREEN,URINE NEGATIVE (CUT0FF=100); PROPOXYPHENE SCREEN,URINE NEGATIVE (CUTOFF=300); THC SCREEN,URINE 20 NG/ML NEGATIVE (CUTOFF=50)
[2023-08-20 18:41] LABS: A/G RATIO 0.8 (1-2); ALBUMIN 2.5 g/dl (3.4-5.0); ANION GAP 9.6 (5-15); BILIRUBIN TOTAL 0.3 mg/dL (0.2-1.0); CALCIUM 8.3 mg/dL (8.5-10.1); EST CRCL DRUG DOSING (CG) 54.99 mL/min; MAGNESIUM 1.5 mg/dL (1.8-2.4); POTASSIUM,K 3.6 mEq/L (3.5-5.1); PROTEIN TOTAL,TP 5.8 g/dl (6.4-8.2)
[2023-08-20 18:43] LABS: AMPHETAMINES SCREEN, URINE PRESUMPTIVE POSITIVE (CUTOFF=500)
[2023-08-20] MEDS ORDERED: Sodium Chloride 0.9% 1,000 ML IV ONE (19:01)
[2023-08-21] MEDS ORDERED: OLANZapine 5 MG Tab PO ONE (02:12)
[2023-08-21] MEDS ORDERED: LORazepam 2 MG/ML SDV IVPUSH ONE (14:31)
[2023-08-21 18:09] VITALS: BP 118/72; PULSE 79
== END 2023-08-21 18:05 | disposition home or self-care (01) ==
LOC: JD.ED 17:40
DX: R56.9 Unspecified convulsions (principal); D64.9 Anemia, unspecified; I10 Essential (primary) hypertension; K21.9 Gastro-esophageal reflux disease without esophagitis; M19.90 Unspecified osteoarthritis, unspecified site; E11.9 Type 2 diabetes mellitus without complications; Z86.16 Personal history of COVID-19; Z88.1 Allergy status to other antibiotic agents; Z88.5 Allergy status to narcotic agent; Z88.8 Allergy status to other drugs, medicaments and biological substances; Z88.6 Allergy status to analgesic agent; Z79.899 Other long term (current) drug therapy
CPT/HCPCS: 36415; 80053; 80306; 80307; 83735; 85025; 96361; 96374; 99284; A9270; J2060; J3490; J7030

== ENCOUNTER 2023-11-24 10:32 | Emergency (ER) | payer MEDICAID, MEDICARE ==
[2023-11-24] MEDS ORDERED: Ketorolac 30 MG/ML SDV IVPUSH ONE (10:51)
[2023-11-24 11:06] LABS: HEMATOCRIT 33.6 % (37.0-47.0); HEMOGLOBIN 10.8 gm/dl (12.0-16.0); MEAN CORPUSCULAR HEMOGLOBIN 33.4 pg (28.0-32.0); MEAN CORPUSCULAR HGB CONC 32.1 g/dl (32.0-36.0); MEAN PLATELET VOLUME 9.9 fl (9.4-12.3); RED BLOOD CELL COUNT 3.23 M/mm3 (4.10-5.30); WHITE BLOOD CELL COUNT,WBC 5.33 K/mm3 (3.9-11.3)
[2023-11-24 11:08] LABS: PLATELET COUNT,PLT 221 K/mm3 (150-400)
[2023-11-24] MEDS ORDERED: Iopamidol 755 Mg/ML 100 ML Bottle IVPUSH ONE ×2 (11:37→11:47)
[2023-11-24] MEDS ORDERED: Sodium Chloride 0.9% 100 ML IV SCH ×2 (11:45→12:00)
[2023-11-24] MEDS ORDERED: Sodium Chloride 0.9% 10 ML Syringe FLUSH ONE (11:47)
[2023-11-24 12:17] LABS: A/G RATIO 0.8 (1-2); ALBUMIN 2.9 g/dl (3.4-5.0); ANION GAP 10.8 (5-15); BILIRUBIN TOTAL 0.2 mg/dL (0.2-1.0); BUN/CREATININE RATIO 24.2 (14-18); CALCIUM 8.3 mg/dL (8.5-10.1); CREATININE 1.2 mg/dL (0.55-1.02); EST CRCL DRUG DOSING (CG) 46.09 mL/min; POTASSIUM,K 3.8 mEq/L (3.5-5.1); PROTEIN TOTAL,TP 6.6 g/dl (6.4-8.2)
[2023-11-24] MEDS ORDERED: Acetaminophen/oxyCODONE 325-5 MG Tab PO ONE (13:40)
[2023-11-24 16:28] VITALS: BP 157/96; PULSE 77
== END 2023-11-24 14:38 | disposition home or self-care (01) ==
LOC: JD.ED 10:32
DX: R07.89 Other chest pain (principal); I10 Essential (primary) hypertension; K21.9 Gastro-esophageal reflux disease without esophagitis; E11.9 Type 2 diabetes mellitus without complications; Z79.01 Long term (current) use of anticoagulants; Z79.899 Other long term (current) drug therapy; Z86.16 Personal history of COVID-19; Z88.1 Allergy status to other antibiotic agents; Z88.5 Allergy status to narcotic agent; Z88.8 Allergy status to other drugs, medicaments and biological substances; Z88.6 Allergy status to analgesic agent
CPT/HCPCS: 36415; 71046; 71046-26; 71275; 71275-26; 80053; 83690; 84484; 85027; 85379; 93005; 93010; 93971-26-RT; 93971-RT; 96374; 99284; 99285-25; A9270-GY; J1885; J3490; Q9967

== ENCOUNTER 2024-04-16 18:11 | Emergency (ER) | payer MEDICARE ==
[2024-04-16 18:48] LABS: HEMATOCRIT 37.1 % (37.0-47.0); HEMOGLOBIN 12.4 gm/dl (12.0-16.0); MEAN CORPUSCULAR HEMOGLOBIN 34.5 pg (28.0-32.0); MEAN CORPUSCULAR HGB CONC 33.4 g/dl (32.0-36.0); MEAN CORPUSCULAR VOLUME 103.3 fl (83.0-99.0); MEAN PLATELET VOLUME 9.3 fl (9.4-12.3); PLATELET COUNT,PLT 209 K/mm3 (150-400); RED BLOOD CELL COUNT 3.59 M/mm3 (4.10-5.30); WHITE BLOOD CELL COUNT,WBC 5.98 K/mm3 (3.9-11.3)
[2024-04-16 19:15] LABS: BAND PERCENT MAN 0 % (0-10); BASOPHILS PERCENT MAN 0 (0.1-1.2); EOSINOPHILS PERCENT MAN 0 % (0.7-5.8); LYMPHOCYTES % ATYPICAL MANUAL 0 %; LYMPHOCYTES PERCENT MAN 41 % (20-40); MONOCYTES PERCENT MAN 7 % (2-10)
[2024-04-16 19:16] LABS: ANISOCYTOSIS 1+ SLIGHT; PLATELET COUNT ESTIMATE ADEQUATE
[2024-04-16 19:18] LABS: A/G RATIO 0.9 (1-2); ALBUMIN 3.2 g/dl (3.4-5.0); ANION GAP 15.4 (5-15); BILIRUBIN TOTAL 0.6 mg/dL (0.2-1.0); BUN/CREATININE RATIO 7.9 (14-18); CALCIUM 8.9 mg/dL (8.5-10.1); CREATININE 1.9 mg/dL (0.55-1.02); EST CRCL DRUG DOSING (CG) 30.24 mL/min; POTASSIUM,K 3.4 mEq/L (3.5-5.1); PROTEIN TOTAL,TP 6.9 g/dl (6.4-8.2); TSH 5.703 uIU/mL (0.358-3.74)
[2024-04-16 20:19] LABS: BUPRENORPHINE SCREEN,URINE NEGATIVE (CUTOFF=10); METHADONE SCREEN, URINE NEGATIVE (CUTOFF=200); OXYCODONE SCREEN,URINE NEGATIVE (CUT0FF=100); THC SCREEN,URINE 20 NG/ML NEGATIVE (CUTOFF=50)
[2024-04-16 20:20] LABS: AMPHETAMINES SCREEN, URINE NEGATIVE (CUTOFF=500); BARBITURATE SCREEN,URINE NEGATIVE (CUTOFF=200); BENZODIAZEPINES SCREEN,URINE NEGATIVE (CUTOFF=150); METHAMPHETAMINES SCREEN, URINE NEGATIVE (CUTOFF=500)
[2024-04-17 01:18] VITALS: BP 100/65; PULSE 71
== END 2024-04-17 01:08 | disposition home or self-care (01) ==
LOC: JD.ED 18:11
DX: F10.10 Alcohol abuse, uncomplicated (principal); I10 Essential (primary) hypertension; K21.9 Gastro-esophageal reflux disease without esophagitis; E11.9 Type 2 diabetes mellitus without complications; F17.210 Nicotine dependence, cigarettes, uncomplicated; Z79.899 Other long term (current) drug therapy; Z88.1 Allergy status to other antibiotic agents; Z88.5 Allergy status to narcotic agent; Z88.8 Allergy status to other drugs, medicaments and biological substances
CPT/HCPCS: 36415; 80053; 80143; 80179; 80306; 80307; 84443; 85007; 85027; 93005; 93010; 99283; 99284

== ENCOUNTER 2025-09-24 13:06 | Inpatient (IN) | payer MEDICARE, MEDICAID ==
[2025-09-24] MEDS ORDERED: Sodium Chloride 0.9% 10 ML Syringe FLUSH PRN (13:17)
[2025-09-24 13:31] LABS: BASOPHILS ABSOLUTE AUTO 0.0 K/mm3 (0.0-0.2); BASOPHILS PERCENT AUTO 0.2 % (0.0-1.0); EOSINOPHILS ABSOLUTE AUTO 0.0 K/mm3 (0.0-0.4); EOSINOPHILS PERCENT AUTO 0.1 % (0.0-6.0); IMMATURE GRAN ABSOLUTE AUTO 0.03 K/mm3 (0.00-0.05); IMMATURE GRAN PERCENT AUTO 0.3 % (0.0-0.4); LYMPHOCYTES ABSOLUTE AUTO 1.2 K/mm3 (1.0-4.8); LYMPHOCYTES PERCENT AUTO 13.3 % (24.0-44.0); MEAN PLATELET VOLUME 10.3 fl (9.4-12.3); MONOCYTES ABSOLUTE AUTO 0.7 K/mm3 (0.0-0.8); MONOCYTES PERCENT AUTO 7.9 % (0.0-8.0); NEUTROPHILS ABSOLUTE AUTO 6.8 K/mm3 (1.8-7.7); NEUTROPHILS PERCENT AUTO 78.2 % (41.0-71.0); NRBC ABSOLUTE 0.00 (0.00-0.02); NRBC PERCENT 0.0 % (0.0-0.2); PLATELET COUNT,PLT 122 K/mm3 (150-400); RED BLOOD CELL COUNT 3.66 M/mm3 (4.10-5.30); WHITE BLOOD CELL COUNT,WBC 8.71 K/mm3 (3.9-11.3)
[2025-09-24] MEDS: Furosemide 40 MG/4 ML VIAL IVPUSH ONE (13:53)
[2025-09-24 14:02] LABS: A/G RATIO 0.6 (1-2); ALANINE AMINOTRANSFERASE,ALT 7.0 U/L (14-59); ASPARTATE AMNIOTRANSFERASE,AST 18.0 U/L (15-37); BILIRUBIN TOTAL 0.5 mg/dL (0.2-1.0); BLOOD UREA NITROGEN,BUN 17.0 mg/dL (7-18); CARBON DIOXIDE,CO2 28.0 mEq/L (21-32); CHLORIDE,CL 105.0 mEq/L (98-107); CREATININE 0.9 mg/dL (0.55-1.02); EST CRCL DRUG DOSING (CG) 59.89 mL/min; ESTIMATED GFR 72.0 mL/min (>60); GLUCOSE RANDOM 102.0 mg/dL (70-99); POTASSIUM,K 2.7 mEq/L (3.5-5.1); PROTEIN TOTAL,TP 6.0 g/dl (6.4-8.2); SODIUM,NA 141.0 mEq/L (136-145); TROPONIN I HIGH SENSITIVITY 7.0 pg/mL (<=51)
[2025-09-24 14:03] LABS: ETHANOL BLOOD MEDICAL 0.0 gm% (0.00)
[2025-09-24] MEDS ORDERED: Ondansetron 4 MG Tab.DIS PO PRN (14:39)
[2025-09-24] MEDS ORDERED: Ondansetron 4 MG/2 ML SDV IV PRN (14:39)
[2025-09-24] MEDS ORDERED: Non-Formulary Medication 1 Each (Sumatriptan Succinate [Imitrex] 100 MG Tablet) PO PRN (14:43)
[2025-09-24] MEDS: Potassium Chloride 20 MEQ Tab.ER PO ONE (16:22)
[2025-09-24] MEDS: Potassium Chloride 20 MEQ Tab.ER ONE (16:25)
[2025-09-24] MEDS: Heparin Sodium 5,000 Units/ML Vial SUBCUT SCH (18:49)
[2025-09-24] MEDS: Furosemide 40 MG/4 ML VIAL IVPUSH SCH (20:29)
[2025-09-24] MEDS ORDERED: Non-Formulary Medication 1 Each (Pantoprazole Sodium 40 MG Tablet.Dr) PO SCH (21:00)
[2025-09-24] MEDS ORDERED: Divalproex Sodium Delayed-Release 500 MG Tab.CR PO SCH (21:00)
[2025-09-25 05:40] LABS: BASOPHILS ABSOLUTE AUTO 0.0 K/mm3 (0.0-0.2); BASOPHILS PERCENT AUTO 0.3 % (0.0-1.0); EOSINOPHILS ABSOLUTE AUTO 0.0 K/mm3 (0.0-0.4); EOSINOPHILS PERCENT AUTO 0.3 % (0.0-6.0); IMMATURE GRAN ABSOLUTE AUTO 0.10 K/mm3 (0.00-0.05); IMMATURE GRAN PERCENT AUTO 1.1 % (0.0-0.4); LYMPHOCYTES ABSOLUTE AUTO 1.5 K/mm3 (1.0-4.8); LYMPHOCYTES PERCENT AUTO 16.9 % (24.0-44.0); MEAN PLATELET VOLUME 10.2 fl (9.4-12.3); MONOCYTES ABSOLUTE AUTO 0.5 K/mm3 (0.0-0.8); MONOCYTES PERCENT AUTO 5.5 % (0.0-8.0); NEUTROPHILS ABSOLUTE AUTO 6.9 K/mm3 (1.8-7.7); NEUTROPHILS PERCENT AUTO 75.9 % (41.0-71.0); NRBC ABSOLUTE 0.00 (0.00-0.02); NRBC PERCENT 0.0 % (0.0-0.2); PLATELET COUNT,PLT 110 K/mm3 (150-400); RED BLOOD CELL COUNT 3.48 M/mm3 (4.10-5.30); WHITE BLOOD CELL COUNT,WBC 9.06 K/mm3 (3.9-11.3)
[2025-09-25 05:54] LABS: BLOOD UREA NITROGEN,BUN 22.0 mg/dL (7-18); CARBON DIOXIDE,CO2 30.0 mEq/L (21-32); CHLORIDE,CL 103.0 mEq/L (98-107); CREATININE 1.0 mg/dL (0.55-1.02); EST CRCL DRUG DOSING (CG) 53.91 mL/min; ESTIMATED GFR 63.0 mL/min (>60); GLUCOSE RANDOM 99.0 mg/dL (70-99); POTASSIUM,K 3.2 mEq/L (3.5-5.1); SODIUM,NA 140.0 mEq/L (136-145)
[2025-09-25] MEDS ORDERED: Non-Formulary Medication 1 Each (Sertraline 100 MG Tablet) PO SCH (09:00)
[2025-09-25] MEDS: Divalproex Sodium Delayed-Release 500 MG Tab.CR PO SCH (11:28)
[2025-09-25] MEDS: Potassium Chloride 20 MEQ Tab.ER PO ONE (20:35)
[2025-09-26 09:06] LABS: A/G RATIO 0.5 (1-2); ALANINE AMINOTRANSFERASE,ALT 9.0 U/L (14-59); ASPARTATE AMNIOTRANSFERASE,AST 16.0 U/L (15-37); BILIRUBIN TOTAL 0.6 mg/dL (0.2-1.0); BLOOD UREA NITROGEN,BUN 22.0 mg/dL (7-18); CARBON DIOXIDE,CO2 27.0 mEq/L (21-32); CHLORIDE,CL 99.0 mEq/L (98-107); CREATININE 1.1 mg/dL (0.55-1.02); EST CRCL DRUG DOSING (CG) 49.0 mL/min; ESTIMATED GFR 56.0 mL/min (>60); GLUCOSE RANDOM 104.0 mg/dL (70-99); POTASSIUM,K 3.8 mEq/L (3.5-5.1); PROTEIN TOTAL,TP 6.4 g/dl (6.4-8.2); SODIUM,NA 136.0 mEq/L (136-145)
[2025-09-26 09:07] LABS: BASOPHILS ABSOLUTE AUTO 0.0 K/mm3 (0.0-0.2); BASOPHILS PERCENT AUTO 0.3 % (0.0-1.0); EOSINOPHILS ABSOLUTE AUTO 0.1 K/mm3 (0.0-0.4); EOSINOPHILS PERCENT AUTO 0.9 % (0.0-6.0); IMMATURE GRAN ABSOLUTE AUTO 0.08 K/mm3 (0.00-0.05); IMMATURE GRAN PERCENT AUTO 1.2 % (0.0-0.4); LYMPHOCYTES ABSOLUTE AUTO 1.2 K/mm3 (1.0-4.8); LYMPHOCYTES PERCENT AUTO 18.0 % (24.0-44.0); MEAN PLATELET VOLUME 10.9 fl (9.4-12.3); MONOCYTES ABSOLUTE AUTO 0.4 K/mm3 (0.0-0.8); MONOCYTES PERCENT AUTO 5.7 % (0.0-8.0); NEUTROPHILS ABSOLUTE AUTO 5.1 K/mm3 (1.8-7.7); NEUTROPHILS PERCENT AUTO 73.9 % (41.0-71.0); NRBC ABSOLUTE 0.00 (0.00-0.02); NRBC PERCENT 0.0 % (0.0-0.2); PLATELET COUNT,PLT 127 K/mm3 (150-400); RED BLOOD CELL COUNT 3.57 M/mm3 (4.10-5.30); WHITE BLOOD CELL COUNT,WBC 6.85 K/mm3 (3.9-11.3)
[2025-09-27 05:55] LABS: BASOPHILS ABSOLUTE AUTO 0.0 K/mm3 (0.0-0.2); BASOPHILS PERCENT AUTO 0.6 % (0.0-1.0); EOSINOPHILS ABSOLUTE AUTO 0.1 K/mm3 (0.0-0.4); EOSINOPHILS PERCENT AUTO 1.4 % (0.0-6.0); IMMATURE GRAN ABSOLUTE AUTO 0.12 K/mm3 (0.00-0.05); IMMATURE GRAN PERCENT AUTO 1.8 % (0.0-0.4); LYMPHOCYTES ABSOLUTE AUTO 1.7 K/mm3 (1.0-4.8); LYMPHOCYTES PERCENT AUTO 25.2 % (24.0-44.0); MEAN PLATELET VOLUME 10.6 fl (9.4-12.3); MONOCYTES ABSOLUTE AUTO 0.5 K/mm3 (0.0-0.8); MONOCYTES PERCENT AUTO 7.6 % (0.0-8.0); NEUTROPHILS ABSOLUTE AUTO 4.2 K/mm3 (1.8-7.7); NEUTROPHILS PERCENT AUTO 63.4 % (41.0-71.0); NRBC ABSOLUTE 0.00 (0.00-0.02); NRBC PERCENT 0.0 % (0.0-0.2); PLATELET COUNT,PLT 128 K/mm3 (150-400); RED BLOOD CELL COUNT 3.44 M/mm3 (4.10-5.30); WHITE BLOOD CELL COUNT,WBC 6.56 K/mm3 (3.9-11.3)
[2025-09-27 06:22] LABS: A/G RATIO 0.4 (1-2); ALANINE AMINOTRANSFERASE,ALT 8.0 U/L (14-59); ASPARTATE AMNIOTRANSFERASE,AST 13.0 U/L (15-37); BILIRUBIN TOTAL 0.5 mg/dL (0.2-1.0); BLOOD UREA NITROGEN,BUN 25.0 mg/dL (7-18); CARBON DIOXIDE,CO2 29.0 mEq/L (21-32); CHLORIDE,CL 102.0 mEq/L (98-107); CREATININE 1.0 mg/dL (0.55-1.02); EST CRCL DRUG DOSING (CG) 53.91 mL/min; ESTIMATED GFR 63.0 mL/min (>60); GLUCOSE RANDOM 99.0 mg/dL (70-99); POTASSIUM,K 3.3 mEq/L (3.5-5.1); PROTEIN TOTAL,TP 6.5 g/dl (6.4-8.2); SODIUM,NA 140.0 mEq/L (136-145)
[2025-09-27] MEDS: guaiFENesin/Dextromethorphan 100-10 MG/5 ML Soln 5 ML Cup PO SCH (08:16)
[2025-09-27] MEDS: Potassium Chloride 20 MEQ Tab.ER PO SCH (08:23)
[2025-09-27] MEDS ORDERED: Furosemide 40 MG/4 ML VIAL IVPUSH SCH (09:00)
[2025-09-28 05:41] LABS: BASOPHILS ABSOLUTE AUTO 0.1 K/mm3 (0.0-0.2); BASOPHILS PERCENT AUTO 1.0 % (0.0-1.0); EOSINOPHILS ABSOLUTE AUTO 0.1 K/mm3 (0.0-0.4); EOSINOPHILS PERCENT AUTO 1.8 % (0.0-6.0); IMMATURE GRAN ABSOLUTE AUTO 0.23 K/mm3 (0.00-0.05); IMMATURE GRAN PERCENT AUTO 4.7 % (0.0-0.4); LYMPHOCYTES ABSOLUTE AUTO 2.2 K/mm3 (1.0-4.8); LYMPHOCYTES PERCENT AUTO 45.8 % (24.0-44.0); MEAN PLATELET VOLUME 10.4 fl (9.4-12.3); MONOCYTES ABSOLUTE AUTO 0.2 K/mm3 (0.0-0.8); MONOCYTES PERCENT AUTO 4.9 % (0.0-8.0); NEUTROPHILS ABSOLUTE AUTO 2.0 K/mm3 (1.8-7.7); NEUTROPHILS PERCENT AUTO 41.8 % (41.0-71.0); NRBC ABSOLUTE 0.00 (0.00-0.02); NRBC PERCENT 0.0 % (0.0-0.2); PLATELET COUNT,PLT 141 K/mm3 (150-400); RED BLOOD CELL COUNT 3.32 M/mm3 (4.10-5.30); WHITE BLOOD CELL COUNT,WBC 4.89 K/mm3 (3.9-11.3)
[2025-09-28 05:43] LABS: A/G RATIO 0.5 (1-2); ALANINE AMINOTRANSFERASE,ALT 10.0 U/L (14-59); ASPARTATE AMNIOTRANSFERASE,AST 10.0 U/L (15-37); BILIRUBIN TOTAL 0.3 mg/dL (0.2-1.0); BLOOD UREA NITROGEN,BUN 27.0 mg/dL (7-18); CARBON DIOXIDE,CO2 29.0 mEq/L (21-32); CHLORIDE,CL 103.0 mEq/L (98-107); CREATININE 0.9 mg/dL (0.55-1.02); EST CRCL DRUG DOSING (CG) 59.89 mL/min; ESTIMATED GFR 72.0 mL/min (>60); GLUCOSE RANDOM 84.0 mg/dL (70-99); POTASSIUM,K 4.0 mEq/L (3.5-5.1); PROTEIN TOTAL,TP 6.2 g/dl (6.4-8.2); SODIUM,NA 140.0 mEq/L (136-145)
[2025-09-28 16:23] VITALS: BP 103/64; PULSE 57
== END 2025-09-28 18:12 | disposition home or self-care (01) | DRG 291 ==
LOC: JD.ED 13:06 → JD.MS 14:39
PROVIDERS: ADMIT Hospitalist; ATTEND Internal Medicine
DX: I11.0 Hypertensive heart disease with heart failure (principal); I50.9 Heart failure, unspecified; I50.33 Acute on chronic diastolic (congestive) heart failure; J96.01 Acute respiratory failure with hypoxia; Z66 Do not resuscitate; Z88.5 Allergy status to narcotic agent; J84.10 Pulmonary fibrosis, unspecified; E87.6 Hypokalemia; F31.70 Bipolar disorder, currently in remission, most recent episode unspecified; G43.909 Migraine, unspecified, not intractable, without status migrainosus; F17.200 Nicotine dependence, unspecified, uncomplicated; R56.9 Unspecified convulsions; G47.30 Sleep apnea, unspecified; K21.9 Gastro-esophageal reflux disease without esophagitis; F41.9 Anxiety disorder, unspecified; E11.9 Type 2 diabetes mellitus without complications; F10.10 Alcohol abuse, uncomplicated; D50.9 Iron deficiency anemia, unspecified; J30.9 Allergic rhinitis, unspecified; H54.7 Unspecified visual loss; M19.90 Unspecified osteoarthritis, unspecified site; Z98.890 Other specified postprocedural states; Z90.49 Acquired absence of other specified parts of digestive tract; Z98.84 Bariatric surgery status; Z86.711 Personal history of pulmonary embolism; Z88.8 Allergy status to other drugs, medicaments and biological substances; Z86.718 Personal history of other venous thrombosis and embolism; Z90.710 Acquired absence of both cervix and uterus; Z86.59 Personal history of other mental and behavioral disorders; Z79.899 Other long term (current) drug therapy; Z98.51 Tubal ligation status; Z88.1 Allergy status to other antibiotic agents; Z88.6 Allergy status to analgesic agent
CPT/HCPCS: 36415; 71046; 80053; 80307; 83880; 84484; 85025; 93005; 94640; 96374; 99285; A9270; J1938; 71250; 71250-26; 80048; 83735; 87428-QW; 93010; 94667; 94668; 94761; 99223; 99232; 99233; J1271; J1644; J3480; J3490; J7512

== ENCOUNTER 2025-10-05 12:33 | Emergency (ER) | payer MEDICARE, MEDICAID ==
[2025-10-05 13:44] LABS: BUPRENORPHINE SCREEN,URINE NEGATIVE (CUTOFF=10); METHADONE SCREEN, URINE NEGATIVE (CUTOFF=200); METHAMPHETAMINES SCREEN, URINE NEGATIVE (CUTOFF=500); OXYCODONE SCREEN,URINE NEGATIVE (CUT0FF=100); THC SCREEN,URINE 20 NG/ML NEGATIVE (CUTOFF=50)
[2025-10-05 13:50] LABS: AMPHETAMINES SCREEN, URINE NEGATIVE (CUTOFF=500)
[2025-10-05 14:15] LABS: A/G RATIO 0.6 (1-2); ALANINE AMINOTRANSFERASE,ALT 19.0 U/L (14-59); ASPARTATE AMNIOTRANSFERASE,AST 29.0 U/L (15-37); BILIRUBIN TOTAL 0.2 mg/dL (0.2-1.0); BLOOD UREA NITROGEN,BUN 25.0 mg/dL (7-18); CARBON DIOXIDE,CO2 30.0 mEq/L (21-32); CHLORIDE,CL 95.0 mEq/L (98-107); CREATININE 1.3 mg/dL (0.55-1.02); EST CRCL DRUG DOSING (CG) 41.47 mL/min; ESTIMATED GFR 46.0 mL/min (>60); ETHANOL BLOOD MEDICAL 0.04 gm% (0.00); GLUCOSE RANDOM 103.0 mg/dL (70-99); POTASSIUM,K 3.1 mEq/L (3.5-5.1); PROTEIN TOTAL,TP 7.3 g/dl (6.4-8.2); SODIUM,NA 140.0 mEq/L (136-145); TSH 6.699 uIU/mL (0.358-3.74)
[2025-10-05 14:16] LABS: BASOPHILS ABSOLUTE AUTO 0.0 K/mm3 (0.0-0.2); BASOPHILS PERCENT AUTO 0.4 % (0.0-1.0); EOSINOPHILS ABSOLUTE AUTO 0.1 K/mm3 (0.0-0.4); EOSINOPHILS PERCENT AUTO 1.0 % (0.0-6.0); IMMATURE GRAN ABSOLUTE AUTO 0.65 K/mm3 (0.00-0.05); IMMATURE GRAN PERCENT AUTO 6.6 % (0.0-0.4); LYMPHOCYTES ABSOLUTE AUTO 4.2 K/mm3 (1.0-4.8); LYMPHOCYTES PERCENT AUTO 42.7 % (24.0-44.0); MEAN PLATELET VOLUME 9.4 fl (9.4-12.3); MONOCYTES ABSOLUTE AUTO 1.0 K/mm3 (0.0-0.8); MONOCYTES PERCENT AUTO 9.9 % (0.0-8.0); NEUTROPHILS ABSOLUTE AUTO 3.9 K/mm3 (1.8-7.7); NEUTROPHILS PERCENT AUTO 39.4 % (41.0-71.0); NRBC ABSOLUTE 0.07 (0.00-0.02); NRBC PERCENT 0.7 % (0.0-0.2); PLATELET COUNT,PLT 392 K/mm3 (150-400); RED BLOOD CELL COUNT 4.26 M/mm3 (4.10-5.30); WHITE BLOOD CELL COUNT,WBC 9.82 K/mm3 (3.9-11.3)
[2025-10-05 16:37] VITALS: BP 137/80; PULSE 66
== END 2025-10-05 16:32 | disposition other institution (70) ==
LOC: JD.ED 12:33
DX: F10.10 Alcohol abuse, uncomplicated (principal); M25.562 Pain in left knee; G40.919 Epilepsy, unspecified, intractable, without status epilepticus; I11.0 Hypertensive heart disease with heart failure; I50.9 Heart failure, unspecified; M19.90 Unspecified osteoarthritis, unspecified site; Z86.16 Personal history of COVID-19; Z90.49 Acquired absence of other specified parts of digestive tract; Z79.899 Other long term (current) drug therapy; Z88.6 Allergy status to analgesic agent; Z88.8 Allergy status to other drugs, medicaments and biological substances; Z88.1 Allergy status to other antibiotic agents; Z72.0 Tobacco use; Y90.0 Blood alcohol level of less than 20 mg/100 ml
CPT/HCPCS: 36415; 73562-26-LT; 73562-LT; 80053; 80143; 80164; 80179; 80306; 80307; 84443; 85025; 99284